=== PATIENT | female | born 1960 | race Hispanic/Latino ===

== ENCOUNTER 2021-01-25 16:54 | Observation (INO) | payer OTHER ==
[2021-01-25 17:52] LABS: Protime INR 1.16
[2021-01-25 17:58] LABS: Absolute Lymphocytes (CBC) 0.9 K/uL (0.7-4.9); Basophils % 0.3 % (0-1.3); Hematocrit 25.9 % (36.0-45.0); Lymphocytes % 32.7 % (15.3-44.8); MPV 6.9 fL (7.6-11.3); RBC Red Blood Cell Count 3.16 M/uL (3.86-4.86)
--- NOTE | 2021-01-25 18:01 | RAD REPORT ---
EXAM DESCRIPTION: RAD - Chest Single View - 01/25/2021 5:55 pm CLINICAL HISTORY: CHEST PAIN Chest pain. COMPARISON: <Comparisons> FINDINGS: Portable technique limits examination quality. [id number] interstitial pulmonary edema. The heart is mildly enlarged in size. No displaced fra ctures. IMPRESSION: Mild CHF.
[2021-01-25 18:16] LABS: ALT/SGPT 32 U/L (12-78); AST/SGOT 36 U/L (15-37); Albumin 3.1 g/dL (3.4-5.0); Alkaline Phosphatase 78 U/L (45-117); BUN Blood Urea Nitrogen 20 mg/dL (7-18); Bicarbonate 28 mmol/L (21-32); Bilirubin Direct 0.2 mg/dL (0-0.2); Bilirubin Total 0.3 mg/dL (0.2-1.0); Glucose Level 107 mg/dL (74-106); NT PRO-BNP 193 pg/mL (<125); Potassium 4.2 mmol/L (3.5-5.1); Protein, Total 7.8 g/dL (6.4-8.2); Sodium Level 138 mmol/L (136-145); Troponin (Emerg Dept Use Only) < 0.02 ng/mL (0.0-0.045)
[2021-01-25 18:22] LABS: Magnesium 1.2 mg/dL (1.8-2.4)
--- NOTE | 2021-01-25 19:04 | ER ---
Nurse's Notes [facility] Name: Sita Delgado Age: 61 yrs Sex: Female : 1960 Arrival Date: 01/25/2021 Time: 16:57 Bed 15 Private MD: Diagnosis: Chest pain, unspecified;Acute pulmonary edema Presentation: 01/25 17:13 Chief complaint: Patient states: chest pain that began this morning at 1100, pt also aa5 reports feeling SOB. Pt appears pale in triage, denies bloody stools or vomiting blood. Denies cough/congestion/nausea/vomiting/diarrhea. Coronavirus screen: shortness of breath. Ebola Screen: No symptoms or risks identified at this time. Initial Sepsis Screen: Does the patient meet any 2 criteria? No. Patient's initial sepsis screen is negative. Does the patient have a suspected source of infection? No. Patient's initial sepsis screen is negative. Risk Assessment: Do you want to hurt yourself or someone else? Patient reports no desire to harm self or others. Onset of symptoms was January 25, 2021. 17:13 Acuity: KATARINA 2 aa5 17:13 Method Of Arrival: Ambulatory aa5 Historical: - Allergies: 17:15 PENICILLINS; aa5 17:15 Nubain; aa5 17:15 Darvocet-N 100; aa5 - PMHx: 17:15 Hypertensive disorder; Diabetes mellitus; thyroid problem; aa5 - PSHx: 17:15 hysterectomy; vic knee reconstructive sx; Appendectomy; Cholecystectomy; aa5 17:18 Carpal Tunnel Repair; aa5 - Immunization history:: Client reports receiving the 2nd dose of the Covid vaccine. - Social history:: Smoking status: Patient denies any tobacco usage or history of. Screenin:53 Abuse screen: Denies threats or abuse. Nutritional screening: No deficits noted. vg1 Tuberculosis screening: No symptoms or risk factors identified. Fall Risk No fall in past 12 months (0 pts). No secondary diagnosis (0 pts). IV access (20 points). Ambulatory Aid- None/Bed Rest/Nurse Assist (0 pts). Gait- Normal/Bed Rest/Wheelchair (0 pts) Mental Status- Oriented to own ability (0 pts). Total Dietrich Fall Scale indicates No Risk (0-24 pts). Assessment: 18:40 General: Appears in no apparent distress. uncomfortable, Behavior is calm, cooperative. vg1 Pain: Complains of pain in anterior aspect of left upper chest Pain radiates to left arm Pain currently is 8 out of 10 on a pain scale. Pain began this morning. Neuro: Level of Consciousness is awake, alert, obeys commands, Oriented to person, place, time, situation, Reports headache. Cardiovascular: Patient's skin is warm and dry. Respiratory: Airway is patent Respiratory effort is even, unlabored. GI: Reports diarrhea. : No signs and/or symptoms were reported regarding the genitourinary system. EENT: No signs and/or symptoms were reported regarding the EENT system. Derm: Skin is intact, is healthy with good turgor. Musculoskeletal: Circulation, motion, and sensation intact. 19:35 Reassessment: Patient appears in no apparent distress at this time. No changes from vg1 previously documented assessment. Patient and/or family updated on plan of care and expected duration. Pain level reassessed. Patient is alert, oriented x 3, equal unlabored respirations, skin warm/dry/pink. Pt asked if could take personal Oxycodone 10 mg PO; asked [place] CHANGE ROOM ATTENDANT stated pt could take it. Pt took Oxycodone 10 mg PO for chronic back pain. 21:46 Reassessment: Patient appears in no apparent distress at this time. Patient and/or vg1 family updated on plan of care and expected duration. Pain level reassessed. Patient is alert, oriented x 3, equal unlabored respirations, skin warm/dry/pink. Pt rates pain 9/10. Receiving nurse notified. Vital Signs: 17:13 BP 133 / 60; Pulse 72; Resp 18 S; Temp 98.0(TE); Pulse Ox 95% on R/A; Weight 92.99 kg aa5 (R); Height 5 ft. 2 in. (157.48 cm) (R); 18:52 BP 131 / 72; Pulse 70; Resp 14; Pulse Ox 98% ; vg1 19:00 BP 124 / 60; Pulse 75; Resp 22; Pulse Ox 98% on R/A; vg1 21:45 BP 140 / 58; Pulse 79; Resp 14; Pulse Ox 100% ; vg1 17:13 Body Mass Index 37.49 (92.99 kg, 157.48 cm) aa ED Course: 16:57 Patient arrived in ED. as 17:13 Arm band placed on. aa5 17:15 Triage completed. aa5 17:24 EKG completed in triage. Results shown to MD. aa5 17:29 Initial lab(s) drawn, by me, sent to lab. Inserted saline lock: 20 gauge in right aa5 antecubital area, using aseptic technique. Blood collected. 17:55 XRAY Chest (1 view) In Process Unspecified. EDMS 18:15 [facility] kb 18:15 Williams Kenney MD is Attending Physician. kb 18:21 Patient has correct armband on for positive identification. Bed in low position. Call [facility] light in reach. Side rails up X 1. Warm blanket given. traffic monitor specialist on. Pulse ox on. NIBP on. 18:21 Basic Metabolic Panel Sent. 5 18:21 LFT's Sent. 5 18:21 Magnesium Sent. 5 18:21 NT PRO-BNP Sent. [facility] 18:21 Troponin (emerg Dept Use Only) Sent. [facility] 18:22 EKG done, by ED staff, reviewed by Marybel HERNANDEZ. 5 18:41 Lorena Suresh, RN is Primary Nurse. vg1 18:53 No provider procedures requiring assistance completed. Patient maintains SpO2 vg1 saturation greater than 95% on room air. 19:03 Edy Carballo is Hospitalizing Provider. kb 21:43 Patient admitted, IV remains in place. vg1 21:43 COVID-19 (Coronavirus) Document "Date of Onset" if Symptomatic Sent. wg 21:43 Extrem Venous W Compression Vic US Sent. wg 21:44 DD Sent. wg Administered Medications: 18:50 Drug: Magnesium Sulfate 2 grams Route: IVPB; Infused Over: 2 hrs; Site: right vg1 antecubital; 21:47 Follow up: IV Status: Completed infusion vg1 19:13 Drug: Lasix (furosemide) 20 mg Route: IVP; Site: right antecubital; vg1 21:46 Follow up: Response: No adverse reaction vg1 19:15 Drug: Aspirin Chewable Tablet 324 mg Route: PO; vg1 21:46 Follow up: Response: No adverse reaction vg1 Outcome: 19:03 Decision to Hospitalize by Provider. kb 21:42 Admitted to Med/surg accompanied by tech, via wheelchair, room 419, with chart, Report vg1 called to Sarah ATWOOD 21:42 Condition: stable 21:42 Instructed on the need for admit. 22:02 Patient left the ED. vg1 Signatures: Dispatcher [employer] Marybel Carty, DAVID ROWE-Erlinda Jackson Audri, RN RN aa5 Michelle Issa Victoria, RN RN vg1 Bert Wooten RN wg Corrections: (The following items were deleted from the chart) 17:18 17:15 Allergies: No Known Allergies; shannan campbell
--- NOTE | 2021-01-25 19:04 | EDPHYS ---
Physician Documentation [facility] Name: Sita Delgado Age: 61 yrs Sex: Female : 1960 Arrival Date: 01/25/2021 Time: 16:57 Bed 15 Private MD: ED Physician Williams Kenney HPI: 01/25 19:01 This 61 yrs old Female presents to ER via Ambulatory with complaints of Chest kb Pain. 19:01 The patient or guardian reports chest pain that is located primarily in the anterior kb chest wall, left. Onset: today, at 11:00. The pain does not radiate. Associated signs and symptoms: Pertinent positives: shortness of breath. The chest pain is described as a pressure. Duration: The patient or guardian reports a single episode, that is still ongoing. Modifying factors: The symptoms are alleviated by nothing. the symptoms are aggravated by nothing. Severity of pain: At its worst the pain was moderate in the emergency department the pain is unchanged. The patient has not experienced similar symptoms in the past. The patient has not recently seen a physician. Historical: - Allergies: 17:15 PENICILLINS; aa5 17:15 Nubain; aa5 17:15 Darvocet-N 100; aa5 - PMHx: 17:15 Hypertensive disorder; Diabetes mellitus; thyroid problem; aa5 - PSHx: 17:15 hysterectomy; vic knee reconstructive sx; Appendectomy; Cholecystectomy; aa5 17:18 Carpal Tunnel Repair; aa5 - Immunization history:: Client reports receiving the 2nd dose of the Covid vaccine. - Social history:: Smoking status: Patient denies any tobacco usage or history of. ROS: 19:01 Constitutional: Negative for fever, chills, and weight loss. kb 19:01 Cardiovascular: Positive for chest pain, Negative for edema, orthopnea, palpitations, paroxysmal nocturnal dyspnea. 19:01 Respiratory: Positive for orthopnea, shortness of breath, Negative for cough, hemoptysis, pleurisy, sputum production, wheezing. 19:01 All other systems are negative. Exam: 19:01 Constitutional: This is a well developed, well nourished patient who is awake, alert, kb and in no acute distress. Head/Face: Normocephalic, atraumatic. ENT: Moist Mucous membranes Cardiovascular: Regular rate and rhythm with a normal S1 and S2. No gallops, murmurs, or rubs. No pulse deficits. Respiratory: Respirations even and unlabored. No increased work of breathing, no retractions or nasal flaring. Skin: Warm, dry with normal turgor. Normal color. MS/ Extremity: Pulses equal, no cyanosis. Neurovascular intact. Full, normal range of motion. Neuro: Awake and alert, GCS 15, oriented to person, place, time, and situation. Moves all extremities. Normal gait. Psych: Awake, alert, with orientation to person, place and time. Behavior, mood, and affect are within normal limits. Vital Signs: 17:13 BP 133 / 60; Pulse 72; Resp 18 S; Temp 98.0(TE); Pulse Ox 95% on R/A; Weight 92.99 kg aa5 (R); Height 5 ft. 2 in. (157.48 cm) (R); 18:52 BP 131 / 72; Pulse 70; Resp 14; Pulse Ox 98% ; vg1 19:00 BP 124 / 60; Pulse 75; Resp 22; Pulse Ox 98% on R/A; vg1 21:45 BP 140 / 58; Pulse 79; Resp 14; Pulse Ox 100% ; vg1 17:13 Body Mass Index 37.49 (92.99 kg, 157.48 cm) aa5 MDM: 18:15 Patient medically screened. kb 18:54 Data reviewed: vital signs, nurses notes. Data interpreted: Pulse oximetry: on room air kb is 98 %. Interpretation: normal. Counseling: I had a detailed discussion with the patient and/or guardian regarding: the historical points, exam findings, and any diagnostic results supporting the discharge/admit diagnosis, lab results, radiology results, the need for further work-up and treatment in the hospital. Physician consultation: Deandre HUNT was contacted at 18:54, regarding admission, patient's condition, and will see patient in ED, shortly. 19:02 The patient was given aspirin in the Emergency Department. kb 01/25 17:24 Order name: Basic Metabolic Panel; Complete Time: 18:24 aa5 01/25 17:24 Order name: CBC with Diff; Complete Time: 20:02 aa5 01/25 17:24 Order name: LFT's; Complete Time: 18:24 aa5 01/25 17:24 Order name: Magnesium; Complete Time: 18:24 aa5 01/25 17:24 Order name: NT PRO-BNP; Complete Time: 18:24 aa5 01/25 17:24 Order name: PT-INR; Complete Time: 18:15 aa5 01/25 17:24 Order name: Troponin (emerg Dept Use Only); Complete Time: 18:24 aa5 01/25 17:24 Order name: XRAY Chest (1 view); Complete Time: 18:15 aa5 01/25 18:46 Order name: COVID-19 (Coronavirus) Document "Date of Onset" if Symptomatic kb 01/25 18:46 Order name: CORONAVIRUS EDMS 01/25 19:57 Order name: CBC Smear Scan; Complete Time: 20:02 EDMS 01/25 20:17 Order name: Extrem Venous W Compression Vic US ej 01/25 20:41 Order name: DD ej 01/25 20:42 Order name: SARS-COV-2 RT PCR; Complete Time: 21:10 EDMS 01/25 17:24 Order name: EKG; Complete Time: 17:25 aa5 01/25 17:24 Order name: Cardiac monitoring; Complete Time: 18:20 aa5 01/25 17:24 Order name: EKG - Nurse/Tech; Complete Time: 17:44 aa5 01/25 17:24 Order name: IV Saline Lock; Complete Time: 17:44 aa5 01/25 17:24 Order name: Labs collected and sent; Complete Time: 17:44 aa5 01/25 17:24 Order name: O2 Per Protocol; Complete Time: 18:20 aa5 01/25 17:24 Order name: O2 Sat Monitoring; Complete Time: 18:20 aa5 01/25 19:10 Order name: CONS Physician Consult; Complete Time: 21:43 EDMS 01/25 21:33 Order name: US; Complete Time: 21:35 EDMS Administered Medications: 18:50 Drug: Magnesium Sulfate 2 grams Route: IVPB; Infused Over: 2 hrs; Site: right vg1 antecubital; 21:47 Follow up: IV Status: Completed infusion vg1 19:13 Drug: Lasix (furosemide) 20 mg Route: IVP; Site: right antecubital; vg1 21:46 Follow up: Response: No adverse reaction vg1 19:15 Drug: Aspirin Chewable Tablet 324 mg Route: PO; vg1 21:46 Follow up: Response: No adverse reaction vg1 Disposition Summary: 01/25/21 19:03 Hospitalization Ordered Hospitalization Status: Inpatient Admission kb Provider: Edy Carballo Location: Telemetry/MedSurg (Inpatient) kb Condition: Stable kb Problem: new kb Symptoms: are unchanged kb Bed/Room Type: Standard Room Assignment: 419(01/25/21 21:19) Diagnosis - Chest pain, unspecified kb - Acute pulmonary edema kb Forms: - Medication Reconciliation Form kb - SBAR form kb Addendum: 01/28/2021 10:25 Co-signature as Attending Physician, Williams Kenney MD I agree with the assessment and c wu plan of care. Signatures: Dispatcher [employer] Marybel Carty FNP-C FNP-Amparo Ahn, RN RN Williams Raya MD MD cha Calderon, Audri RN RN aa5 Lorena Suresh RN RN vg1 Corrections: (The following items were deleted from the chart) 01/25 17:18 17:15 Allergies: No Known Allergies; aa5 aa5 21:19 19:03 kb mw
[2021-01-25] MEDS ORDERED: Magnesium Sulfate 2gm IVPB 2 G/50 ML BAG IV ONE (19:09)
[2021-01-25] MEDS ORDERED: FUROSEMIDE 20 MG/ 2ML VIAL ONE (19:33)
[2021-01-25] MEDS ORDERED: ASPIRIN 81 MG CHEWABLE TABLET ONE (19:34)
[2021-01-25 19:57] LABS: Blood Morphology Comment NOT SEEN (NOT SEEN); Platelet Estimate DECR; White Blood Cell Scan OK (OK)
--- NOTE | 2021-01-25 20:26 | P.HP ---
Certification for Inpatient Patient admitted to: Observation With expected LOS: <2 Midnights Patient will require the following post-hospital care: None Practitioner: I am a practitioner with admitting privileges, knowledge of patient current condition, hospital course, and medical plan of care. Services: Services provided to patient in accordance with Admission requirements found in Title 42 Section 412.3 of the Code of Federal Regulations Patient History Date of Service: 01/25/21 Reason for admission: chest pain History of Present Illness: Ms. Delgado is a 61 yo F with HTN, DM, NAFLD, and history of anemia and thrombocytopenia who presents with 10/10 constant left sided chest pressure radiating down the left arm. Pain worse with movement, relieved with rest. Patient reports SOB, dizziness, nausea. Denies palpitations, vomiting, vision changes. She last saw her shoe polisher a few months ago with no acute findings at that time. Her PCP ordered a bilateral venous doppler US to evaluate leg swelling, but the order was lost so she has not had it done yet. H/H 8.4 plt 98 BUN 20 GFR 56 Glu 107 Mg 1.2 BNP 193 CXR - mild CHF. - Past Medical/Surgical History Has patient received pneumonia vaccine in the past: No Diabetic: Yes -: HTN -: DM -: NAFLD -: thrombocytopenia -: anemia -: splenomegaly -: 2x knee replacement -: hysterectomy -: appendectomy -: cholecystectomy -: carpal tunnel syndrome Psychosocial/ Personal History: - Social History Smoking Status: Never smoker Alcohol use: No CD- Drugs: No Caffeine use: No Place of Residence: Home Review of Systems 10-point ROS is otherwise unremarkable General: Unremarkable Eyes: Unremarkable ENT: Unremarkable Respiratory: Shortness of Breath, SOB with Excertion Cardiovascular: Chest Pain, Edema, Light Headedness Gastrointestinal: Nausea Genitourinary: Unremarkable Musculoskeletal: Unremarkable Integumentary: Unremarkable Neurological: Unremarkable Lymphatics: Unremarkable Physical Examination - Physical Exam General: Alert, In no apparent distress HEENT: Atraumatic, PERRLA, Mucous membr. moist/pink, EOMI, Sclerae nonicteric Neck: Supple, 2+ carotid pulse no bruit, No LAD, Without JVD or thyroid abnormality Respiratory: Normal air movement, Crackles/rales Cardiovascular: Regular rate/rhythm, Normal S1 S2, Edema Gastrointestinal: Normal bowel sounds, No tenderness Musculoskeletal: No tenderness Integumentary: No rashes Neurological: Normal speech, Normal strength at 5/5 x4 extr, Normal tone, Normal affect Lymphatics: No axilla or inguinal lymphadenopathy - Studies Laboratory Data (last 24 hrs) 01/25/21 17:30: PT 13.4 H, INR 1.16 01/25/21 17:30: WBC 2.80 L, Hgb 8.4 L, Hct 25.9 L, Plt Count 98 L 01/25/21 17:30: Sodium 138, Potassium 4.2, BUN 20 H, Creatinine 1.01, Glucose 107 H, Magnesium 1.2 L*, Total Bilirubin 0.3, AST 36, ALT 32, Alkaline Phosphatase 78 Assessment and Plan - Problems (Diagnosis) (1) HTN (hypertension) Current Visit: Yes Status: Chronic Qualifiers: Hypertension type: primary hypertension Qualified Code(s): I10 - Essential (primary) hypertension (2) T2DM (type 2 diabetes mellitus) Current Visit: Yes Status: Chronic Qualifiers: Diabetes mellitus mcc insulin use: without mcc use Diabetes mellitus complication status: with kidney complications Diabetes mellitus complication detail: with chronic kidney disease Chronic kidney disease stage 3 subtype: stage 3a (GFR 45-59) (3) Chest pain Current Visit: Yes Status: Acute Qualifiers: Chest pain type: unspecified Qualified Code(s): R07.9 - Chest pain, unspecified (4) Anemia Current Visit: Yes Status: Chronic Qualifiers: Anemia type: unspecified type Qualified Code(s): D64.9 - Anemia, unspecified (5) Thrombocytopenia Current Visit: Yes Status: Chronic (6) Hypomagnesemia Current Visit: Yes Status: Acute - Plan on tele, cardiology consulted trend troponins, repeat EKG ECHO pending, daily weights, fluid restriction DDimer pending, venous doppler ultrasound pending, will obtain CTPE if DDimer elevated daily ASA, BB, statin, lasix, prn morphine and nitroglycerin A1c pending, sliding scale insulin and accuchecks anemia workup pending, continue to monitor hemoglobin/hematocrit lipid and thyroid panel pending magnesium replacement protocol DVT ppx Discharge Plan: Home Plan to discharge in: 24 Hours - Advance Directives Does patient have a Living Will: No Does patient have a Durable POA for Healthcare: No - Code Status/Comfort Care Code Status Assessed: Yes (full code ) Critical Care: No Time Spent Managing Pts Care (In Minutes): 70
--- NOTE | 2021-01-25 21:32 | RAD REPORT ---
EXAM DESCRIPTION: US - Extrem Venous W Compress Ray - 01/25/2021 9:19 pm CLINICAL HISTORY: SWELLING Bilateral leg edema and swelling. COMPARISON: <Comparisons> TECHNIQUE: Real-time sonographic interrogation of the left and right lower extremity deep venous sys tems was performed. FINDINGS: Normal compressibility, flow augmentation, phasic flow and spontaneous flow is identified in both the left and right lower extremity deep venous systems. IMPRESSION: No sonographic evidence of left or right lower extremity deep venous thrombosis.
[2021-01-25] MEDS: MORPHINE 2 MG/ML SYR IV PRN (22:00)
[2021-01-25] MEDS ORDERED: ATORVASTATIN 40 MG TAB PO SCH (22:14)
[2021-01-25] MEDS: INSULIN -REGULAR HUMAN 50 UNIT/0.5 ML ML SQ SCH (22:14)
[2021-01-25] MEDS ORDERED: NITROGLYCERIN 0.4 MG/TAB SL PRN (22:14)
[2021-01-25] MEDS ORDERED: ACETAMINOPHEN 500 MG TAB PO PRN (22:14)
[2021-01-25] MEDS ORDERED: ONDANSETRON 4 MG/2 ML VIAL IV PRN (22:14)
[2021-01-25 22:32] VITALS: BMI 37.0
[2021-01-25 23:45] LABS: Troponin I < 0.02 ng/mL (0.0-0.045)
[2021-01-26 00:05] LABS: Thyroid Stimulating Hormone < 0.005 uIU/mL (0.360-3.740)
[2021-01-26] MEDS ORDERED: MAGNESIUM SULFATE 1 gm IVPB 1 GM/100 ML BAG IV ONE (00:09)
[2021-01-26 04:20] LABS: Basophils % 0.5 % (0-1.3); Hematocrit 26.1 % (36.0-45.0); Lymphocytes % 39.7 % (15.3-44.8); MPV 7.3 fL (7.6-11.3)
[2021-01-26 04:42] LABS: Bilirubin Total 0.4 mg/dL (0.2-1.0); Magnesium 1.9 mg/dL (1.8-2.4); Phosphorus 4.4 mg/dL (2.5-4.9); Potassium 3.7 mmol/L (3.5-5.1); Protein, Total 7.7 g/dL (6.4-8.2)
[2021-01-26] MEDS: MORPHINE 2 MG/ML SYR IV PRN ×2 (04:43→11:27)
[2021-01-26] MEDS ORDERED: METOPROLOL TAR 25 MG TAB PO SCH (06:00)
[2021-01-26] MEDS: INSULIN -REGULAR HUMAN 50 UNIT/0.5 ML ML SQ SCH ×2 (07:30→11:30)
--- NOTE | 2021-01-26 08:39 | RAD REPORT ---
EXAM DESCRIPTION: CT - Chest For Pe Angio - 01/26/2021 8:12 am CLINICAL HISTORY: chest pain COMPARISON: Extrem Venous W Compress Ray dated 01/25/2021 FINDINGS: Chest Wall: No suspicious thyroid nodules or pathologic lymphadenopathy. Lungs: No acute abnormality. Pleura: No significant effusions or pneumothorax. Mediastinum/cassidy: No pathologic lymphadenopathy. Pulmonary arteries/Aorta: No filling defect identified. No aortic aneurysm. Heart: No significant pericardial effusion. Normal heart size. Upper abdomen: No acute abnormality. Cholecystectomy. Question splenomegaly. This is only partially i ethel. Cirrhosis. Bones: No acute abnormality. All CT scans are performed using dose optimization technique as appropriate and may include automated exposure control or mA/KV adjustment according to patient size. IMPRESSION: Negative for pulmonary embolism. No other acute findings within the chest.
[2021-01-26] MEDS ORDERED: ASPIRIN EC 81 MG TAB PO SCH (09:00)
[2021-01-26] MEDS ORDERED: FUROSEMIDE 20 MG TABLET PO SCH (09:00)
[2021-01-26] MEDS ORDERED: POTASSIUM CL SA 10 MEQ TAB PO ONE (09:00)
[2021-01-26 09:43] LABS: Urine Appearance CLEAR (Clear); Urine Bilirubin NEGATIVE (Negative); Urine Blood NEGATIVE (Negative); Urine Color YELLOW (Yellow); Urine Glucose NEGATIVE (Negative); Urine Protein NEGATIVE (Negative); Urine Specific Gravity 1.015 (1.005-1.030)
[2021-01-26] MEDS ORDERED: INFLUENZA VACCINE (for 6+ mo) 0.5 ML DOSE IMVAC ONE (10:00)
[2021-01-26 10:04] VITALS: O2SAT 97
[2021-01-26 10:08] LABS: Urine Microscopic Reflex NO UMIC
[2021-01-26 10:17] LABS: Transferrin 268 mg/dL (200-360)
[2021-01-26] MEDS ORDERED: ALPRAZOLAM 0.5 MG TABLET PO PRN (11:04)
--- NOTE | 2021-01-26 11:33 | P.DS ---
Admission Date: 01/25/21 Discharge Date: 01/26/21 Disposition: ROUTINE DISCHARGE Discharge Condition: FAIR Reason for Admission: chest pain - Problems (1) Chest pain Current Visit: Yes Status: Acute Qualifiers: Chest pain type: unspecified Qualified Code(s): R07.9 - Chest pain, unspecified (2) Anemia Current Visit: Yes Status: Chronic Qualifiers: Anemia type: unspecified type Qualified Code(s): D64.9 - Anemia, unspecified (3) HTN (hypertension) Current Visit: Yes Status: Chronic Qualifiers: Hypertension type: primary hypertension Qualified Code(s): I10 - Essential (primary) hypertension (4) T2DM (type 2 diabetes mellitus) Current Visit: Yes Status: Chronic Qualifiers: Diabetes mellitus extermination inspector insulin use: without group home use Diabetes chente litus complication status: with kidney complications Diabetes mellitus complication detail: with chronic kidney disease Chronic kidney disease stage 3 subtype: stage 3a (GFR 45-59) (5) Thrombocytopenia Current Visit: Yes Status: Chronic Brief History of Present Illness: 61 yo F with HTN, DM, NAFLD, and history of anemia and thrombocytopenia presented with 10/10 constant left sided chest pressure radiating down the left arm. Pain worse with movement, relieved with rest. Patient reports SOB, dizziness, nausea. Denies palpitations, vomiting, vision changes. H/H 8.4 plt 98 BUN 20 GFR 56 Glu 107 Mg 1.2 BNP 193 CTA thorax showed no acute disease. Negative for PE. Initial troponin negative. Patient placed under observation for ACS rule out. Hospital Course: Troponin trended negative. Patient was asymptomatic during the hospital stay. Noted she has a history of chronic pain on extended-release morphine and oxycodone p.r.n. Lipid profile checked was in acceptable range. Lower extremity venous Doppler was negative for DVT. ACS ruled out. Patient informed to follow with the per ID for arrangement for outpatient stress test. Dr. Burch informed. Vital Signs/Physical Exam: Temp Pulse Resp BP Pulse Ox 97.6 F 80 19 115/52 L 97 01/26/21 08:00 01/26/21 08:57 01/26/21 08:00 01/26/21 08:57 01/26/21 08:00 General: Alert, In no apparent distress, Oriented x3, Obese HEENT: PERRLA Neck: JVD not distended Respiratory: Clear to auscultation bilaterally, Normal air movement Cardiovascular: Regular rate/rhythm, Normal S1 S2 Gastrointestinal: Soft and benign, Non-distended Musculoskeletal: No swelling Integumentary: No rashes, No cyanosis Neurological: Normal strength at 5/5 x4 extr Laboratory Data at Discharge: WBC 2.40 K/uL (4.3-10.9) L D 01/26/21 03:11 Hgb 8.7 g/dL (12.0-15.0) L 01/26/21 03:11 Hct 26.1 % (36.0-45.0) L 01/26/21 03:11 Plt Count 91 K/uL (152-406) L 01/26/21 03:11 PT 13.4 SECONDS (9.5-12.5) H 01/25/21 17:30 INR 1.16 01/25/21 17:30 Sodium 140 mmol/L (136-145) 01/26/21 03:11 Potassium 3.7 mmol/L (3.5-5.1) 01/26/21 03:11 BUN 23 mg/dL (7-18) H 01/26/21 03:11 Creatinine 1.07 mg/dL (0.55-1.3) 01/26/21 03:11 Glucose 143 mg/dL (74-106) H 01/26/21 03:11 Phosphorus 4.4 mg/dL (2.5-4.9) 01/26/21 03:11 Magnesium 1.9 mg/dL (1.8-2.4) 01/26/21 03:11 Total Bilirubin 0.4 mg/dL (0.2-1.0) 01/26/21 03:11 AST 35 U/L (15-37) 01/26/21 03:11 ALT 28 U/L (12-78) 01/26/21 03:11 Alkaline Phosphatase 85 U/L (45-117) 01/26/21 03:11 Troponin I < 0.02 ng/mL (0.0-0.045) 01/26/21 03:11 Triglycerides 117 mg/dL (<150) 01/26/21 03:11 Cholesterol 79 mg/dL (<200) 01/26/21 03:11 HDL Cholesterol 34 mg/dL (40-60) L 01/26/21 03:11 Cholesterol/HDL Ratio 2.32 01/26/21 03:11 Home Medications: ALPRAZolam [Xanax*] 0.5 mg PO BID PRN 01/26/21 Aspirin [Aspirin EC 81 MG] 81 mg PO DAILY #30 tablet. 01/26/21 Atorvastatin Calcium 10 mg PO DAILY 01/26/21 Levothyroxine Sodium [Levothyroxine] 150 mcg PO DAILY #30 capsule 01/26/21 Metformin HCl 500 mg PO BID 01/26/21 Metoclopramide HCl [Reglan] 10 mg PO TID 01/26/21 Metoprolol Tartrate 25 mg PO BID 01/26/21 Mirabegron [Myrbetriq] 25 mg PO DAILY 01/26/21 Mirtazapine 15 mg PO BEDTIME 01/26/21 Morphine Sulfate [Morphine Sulfate ER] 30 mg PO DAILY 6PM 01/26/21 Omeprazole [Prilosec] 40 mg PO DAILY 01/26/21 Oxycodone HCl/Acetaminophen [Percocet 10-325 mg Tablet] 1 each PO Q6HR PRN 01/26/21 Vortioxetine Hydrobromide [Trintellix] 20 mg PO DAILY 01/26/21 New Medications: Aspirin [Aspirin EC 81 MG] 81 mg PO DAILY #30 tablet. Levothyroxine Sodium [Levothyroxine] 150 mcg PO DAILY #30 capsule Diet: AHA Activity: Ad luke Followup: Stephane Burch MD [ACTIVE - CAN ADMIT] - 2-3 Days (Please call the office at [phone]. ) Arelis Armendariz MD [Primary Care Provider] -
[2021-01-26 12:06] VITALS: BP 135/62; TEMP 98.2
[2021-01-28 14:47] LABS: Folic Acid, (Folate) > 20.0 ng/mL (3.1-17.5)
== END 2021-01-26 12:25 | disposition home or self-care (01) ==
LOC: ER 16:54 → INTOOBSV 19:39 → ERHOLD 19:39 → 4TH 21:44
PROVIDERS: ADMIT Internal Medicine; ATTEND Internal Medicine
DX: R07.9 Chest pain, unspecified (principal); I11.0 Hypertensive heart disease with heart failure; I50.9 Heart failure, unspecified; E11.9 Type 2 diabetes mellitus without complications; D64.9 Anemia, unspecified; D69.6 Thrombocytopenia, unspecified; E83.42 Hypomagnesemia; K76.0 Fatty (change of) liver, not elsewhere classified; G89.29 Other chronic pain; R16.1 Splenomegaly, not elsewhere classified; Z88.0 Allergy status to penicillin; Z88.6 Allergy status to analgesic agent; Z90.49 Acquired absence of other specified parts of digestive tract; Z90.710 Acquired absence of both cervix and uterus; Z96.659 Presence of unspecified artificial knee joint; Z20.822 Contact with and (suspected) exposure to COVID-19; Z23 Encounter for immunization
CPT/HCPCS: 96365; 93005 ×2; 85025 ×2; 80048; 36415; 83735 ×3; 84100; 85610; 80061; 82947 ×3; 85379; 80076; 84443; 81003; 83036; 84484 ×3; 84439; 82728; 82746; 82607; 83540; 80053; 83880; 84466; 71275; 71045; 90471; 93970; 94760 ×2; 96375; 99285; 96366; U0003; Q9967; J1940; Q2035; J3475 ×2; J2270 ×3; J2405; G0378 ×3

== ENCOUNTER 2021-03-24 08:54 | Emergency (ER) | payer OTHER ==
[2021-03-24] MEDS ORDERED: ONDANSETRON 4 MG/2 ML VIAL ONE (09:06)
[2021-03-24] MEDS ORDERED: NA CHLORIDE 0.9% 1,000 ML ONE (09:07)
[2021-03-24 09:19] LABS: Absolute Lymphocytes (CBC) 0.9 K/uL (0.7-4.9); Basophils % 0.6 % (0-1.3); Hematocrit 33.9 % (36.0-45.0); Lymphocytes % 27.7 % (15.3-44.8); MPV 7.7 fL (7.6-11.3); RBC Red Blood Cell Count 4.06 M/uL (3.86-4.86)
[2021-03-24 09:38] LABS: Albumin 3.2 g/dL (3.4-5.0); Bilirubin Direct 0.2 mg/dL (0-0.2); Bilirubin Total 0.5 mg/dL (0.2-1.0); Potassium 4.2 mmol/L (3.5-5.1); Protein, Total 8.7 g/dL (6.4-8.2)
[2021-03-24 10:22] LABS: SARS-COV-2 RT PCR NEGATIVE (NEGATIVE)
--- NOTE | 2021-03-24 10:30 | RAD REPORT ---
EXAM DESCRIPTION: CT - Abdomen Pelvis W Contrast - 03/24/2021 10:07 am CLINICAL HISTORY: Abdominal pain COMPARISON: none. TECHNIQUE: Computed axial tomography of the abdomen pelvis was obtained. 100 cc Isovue-300 was admin istered intravenously. Oral contrast was not requested which limits evaluation of bowel. All CT scans are performed using dose optimization technique as appropriate and may include automated exposure control or mA/KV adjustment according to patient size. FINDINGS: A cirrhotic liver with fatty infiltration. Mild distention portal vein. Spleen measures 15 centimeters. Pancreas, adrenals and kidneys unremarkable. There is no evidence of diverticulitis. Portions of the wall of the colon appear mildly thickened. Hysterectomy Small ventral and small umbilical hernias Moderate compression fracture L1 vertebral body probably old IMPRESSION: Cirrhosis with mild to moderate splenomegaly Mild colonic wall thickening probably a mild colitis
[2021-03-24] MEDS ORDERED: metroNIDAZOLE 500 MG TABLET ONE (10:39)
[2021-03-24] MEDS ORDERED: CIPROFLOXACIN 400mg IV 400 MG/200 ML BAG IV ONE (10:39)
[2021-03-24] MEDS ORDERED: MEPERIDINE HCL 25 MG/ML SYR ONE (10:48)
--- NOTE | 2021-03-24 11:10 | EDPHYS ---
Physician Documentation [facility] Name: Sita Delgado Age: 61 yrs Sex: Female : 1960 Arrival Date: 03/24/2021 Time: 08:57 Bed 5 Private MD: ED Physician Everette Stiles HPI: 03/24 09:07 This 61 yrs old Female presents to ER via Ambulatory with complaints of rn Vomiting/Diarrhea. 09:07 The patient presents to the emergency department with nausea, vomiting, diarrhea, rn abdominal pain, of the abdomen diffusely, described as achy, crampy, and does not radiate. Onset: The symptoms/episode began/occurred 1 week(s) ago. Possible causes: unknown. The symptoms are aggravated by nothing. The symptoms are alleviated by nothing. Associated signs and symptoms: Pertinent positives: abdominal pain, diarrhea, nausea, vomiting, Pertinent negatives: fever, GI bleeding. Severity of symptoms: At their worst the symptoms were moderate in the emergency department the symptoms are unchanged. The patient has not experienced similar symptoms in the past. The patient has not recently seen a physician. Patient reports 1 week of abdominal pain and diarrhea, vomiting started yesterday. No blood in stool or emesis. No fever. No known sick contacts.. Historical: - Allergies: 09:03 Darvocet-N 100; ss 09:03 Nubain; ss 09:03 PENICILLINS; ss - PMHx: 09:03 diabetes mellitus; Hypertensive disorder; Thyroid problem; ss - PSHx: 09:03 Appendectomy; vic knee reconstructive sx; carpal tunnel repair; Cholecystectomy; ss hysterectomy; - Immunization history:: Client reports receiving the 2nd dose of the Covid vaccine. - Social history:: Smoking status: Patient denies any tobacco usage or history of. - Family history:: not pertinent. - Hospitalizations: : No recent hospitalization is reported. ROS: 09:07 Constitutional: Negative for fever, chills, and weight loss, Eyes: Negative for injury, rn pain, redness, and discharge, ENT: Negative for injury, pain, and discharge, Neck: Negative for injury, pain, and swelling, Cardiovascular: Negative for chest pain, palpitations, and edema, Respiratory: Negative for shortness of breath, cough, wheezing, and pleuritic chest pain, Abdomen/GI: Negative for constipation Back: Negative for injury and pain, : Negative for injury, bleeding, discharge, and swelling, MS/Extremity: Negative for injury and deformity, Skin: Negative for injury, rash, and discoloration, Neuro: Negative for headache, numbness, tingling, and seizure. Exam: 09:07 Constitutional: This is a well developed, well nourished patient who is awake, alert, rn and in no acute distress. Head/Face: Normocephalic, atraumatic. Eyes: Periorbital areas with no swelling, redness, or edema. ENT: Dry mucous membranes Cardiovascular: Regular rate and rhythm. No pulse deficits. Respiratory: No increased work of breathing, no retractions or nasal flaring. Abdomen/GI: soft, + diffuse abd tenderness, worse RLQ and periumbilical Skin: Warm, dry MS/ Extremity: Pulses equal, no cyanosis. Neuro: Awake and alert, GCS 15 Vital Signs: 09:03 BP 162 / 83; Pulse 76; Resp 16; Temp 98.6; Pulse Ox 98% ; Weight 90.72 kg; Height 5 ft. vg1 2 in. (157.48 cm); Pain 9/10; 10:12 BP 143 / 67; Pulse 75; Resp 15; Pulse Ox 98% ; jl7 11:30 BP 144 / 65; Pulse 74; Resp 15; Pulse Ox 98% ; jl7 09:03 Body Mass Index 36.58 (90.72 kg, 157.48 cm) vg1 MDM: 08:58 Patient medically screened. rn 10:40 Differential diagnosis: Nonspecific abd pain, gastritis, diverticulitis, viral rn gastroenteritis, gastroenteritis, Colitis. Data reviewed: vital signs, nurses notes, lab test result(s), radiologic studies, CT scan, and as a result, I will discharge patient. Counseling: I had a detailed discussion with the patient and/or guardian regarding: the historical points, exam findings, and any diagnostic results supporting the discharge/admit diagnosis, lab results, radiology results, the need for outpatient follow up, to return to the emergency department if symptoms worsen or persist or if there are any questions or concerns that arise at home. 10:42 Response to treatment: the patient's symptoms have mildly improved after treatment. rn 03/24 09:05 Order name: Basic Metabolic Panel; Complete Time: 09:41 rn 03/24 09:05 Order name: CBC with Diff; Complete Time: 09:22 rn 03/24 09:05 Order name: Hepatic Function; Complete Time: 09:41 rn 03/24 09:05 Order name: Lipase; Complete Time: 09:41 rn 03/24 09:05 Order name: CT Abd/Pelvis - IV Contrast Only; Complete Time: 10:31 rn 03/24 09:42 Order name: COVID-19/FLU A+B; Complete Time: 10:26 EDMS 03/24 09:05 Order name: IV Saline Lock; Complete Time: 09:12 rn 03/24 09:05 Order name: Labs collected and sent; Complete Time: 09:12 rn Administered Medications: 09:12 Drug: NS 0.9% 1000 ml Route: IV; Rate: 1000 ml; Site: right antecubital; jl7 10:15 Follow up: Response: No adverse reaction; IV Status: Completed infusion; IV Intake: jl7 1000ml 09:12 Drug: Zofran (Ondansetron) 4 mg Route: IVP; Site: right antecubital; jl7 10:29 Follow up: Response: No adverse reaction; Marked relief of symptoms vg1 10:43 Follow up: Response: No adverse reaction; Nausea is decreased jl7 10:43 Drug: Cipro (ciprofloxacin) 400 mg Volume: 200 ml; Route: IVPB; Infused Over: 60 mins; jl7 Site: right antecubital; 11:59 Follow up: IV Status: Completed infusion; IV Intake: 200ml vg1 10:43 Drug: Flagyl (metroNIDAZOLE) 500 mg Route: PO; jl7 11:59 Follow up: Response: No adverse reaction vg1 11:18 Drug: Phenergan (promethazine) 12.5 mg Route: IVP; Site: right antecubital; vg1 11:59 Follow up: Response: No adverse reaction; Marked relief of symptoms vg1 11:20 Drug: Demerol (meperidine) 25 mg Route: IVP; Site: right antecubital; vg1 11:59 Follow up: Response: No adverse reaction; Marked relief of symptoms vg1 Disposition Summary: 03/24/21 11:09 Discharge Ordered Location: Home rn Problem: new rn Symptoms: have improved rn Condition: Stable rn Diagnosis - Infectious gastroenteritis and colitis, unspecified rn Followup: rn - With: Private Physician - When: 2 - 3 days - Reason: Recheck today's complaints, Re-evaluation by your physician Discharge Instructions: - Discharge Summary Sheet rn - Colitis rn Forms: - Medication Reconciliation Form rn - Thank You Letter rn - Antibiotic government operations consultant - Prescription Opioid Use rn Prescriptions: - ondansetron 4 mg Oral tablet,disintegrating - take 1 tablet by ORAL route every 8 hours As needed; 20 tablet; Refills: 0, rn Product Selection Permitted - Flagyl 500 mg Oral Tablet - take 1 tablet by ORAL route every 8 hours for 10 days; 30 tablet; Refills: 0, rn Product Selection Permitted - Cipro 500 mg Oral Tablet - take 1 tablet by ORAL route every 12 hours for 10 days; 20 tablet; Refills: 0, rn Product Selection Permitted Signatures: Dispatcher [employer] EDMS Everette Stiles MD MD rn Smirch, Shelby RN RN ss Kera Choi RN RN jl7 Kerwin, Lorena, RN RN vg1 Corrections: (The following items were deleted from the chart) 09:42 09:22 SARS-COV-2 RT PCR+MOL.LAB.BRZ ordered. EDMS EDMS 09:43 09:22 Influenza Screen (A \T\ B)+BA.LAB.BRZ ordered. EDMS EDMS
--- NOTE | 2021-03-24 11:10 | ER ---
Nurse's Notes [facility] Name: Sita Delgado Age: 61 yrs Sex: Female : 1960 Arrival Date: 03/24/2021 Time: 08:57 Bed 5 Private MD: Diagnosis: Infectious gastroenteritis and colitis, unspecified Presentation: 03/24 09:05 Chief complaint: Patient states: N/V/D and abd cramping that began 1 week ago. ss Coronavirus screen: Client denies travel out of the [place] in the last 14 days. Ebola Screen: Patient denies exposure to infectious person. Patient denies travel to an Ebola-affected area in the 21 days before illness onset. Initial Sepsis Screen: Does the patient meet any 2 criteria? No. Patient's initial sepsis screen is negative. Does the patient have a suspected source of infection? No. Patient's initial sepsis screen is negative. Risk Assessment: Do you want to hurt yourself or someone else? Patient reports no desire to harm self or others. Onset of symptoms was March 17, 2021. 09:05 Method Of Arrival: Ambulatory 09:05 Acuity: KATARINA 3 ss Historical: - Allergies: 09:03 Darvocet-N 100; ss 09:03 Nubain; ss 09:03 PENICILLINS; ss - PMHx: 09:03 diabetes mellitus; Hypertensive disorder; Thyroid problem; ss - PSHx: 09:03 Appendectomy; vic knee reconstructive sx; carpal tunnel repair; Cholecystectomy; ss hysterectomy; - Immunization history:: Client reports receiving the 2nd dose of the Covid vaccine. - Social history:: Smoking status: Patient denies any tobacco usage or history of. - Family history:: not pertinent. - Hospitalizations: : No recent hospitalization is reported. Screenin:09 Abuse screen: Denies threats or abuse. Nutritional screening: Has had N/V for 3 or more vg1 days. Tuberculosis screening: No symptoms or risk factors identified. Fall Risk No fall in past 12 months (0 pts). No secondary diagnosis (0 pts). IV access (20 points). Ambulatory Aid- None/Bed Rest/Nurse Assist (0 pts). Gait- Normal/Bed Rest/Wheelchair (0 pts) Mental Status- Oriented to own ability (0 pts). Total Dietrich Fall Scale indicates No Risk (0-24 pts). Assessment: 09:07 General: Appears in no apparent distress. uncomfortable, Behavior is calm, cooperative. vg1 Pain: Complains of pain in suprapubic area and right lower quadrant Pain currently is 9 out of 10 on a pain scale. Pain began x 1 week. Neuro: Level of Consciousness is awake, alert, obeys commands, Oriented to person, place, time, situation. Cardiovascular: Patient's skin is warm and dry. Respiratory: Airway is patent Respiratory effort is even, unlabored. GI: Abdomen is round non-distended, Reports diarrhea, nausea, vomiting, diarrhea x 1 week; vomiting began yesterday. : No signs and/or symptoms were reported regarding the genitourinary system. EENT: No signs and/or symptoms were reported regarding the EENT system. Derm: Skin is pink, warm \T\ dry. Musculoskeletal: Circulation, motion, and sensation intact. 10:29 Reassessment: Patient appears in no apparent distress at this time. Patient and/or vg1 family updated on plan of care and expected duration. Pain level reassessed. Patient is alert, oriented x 3, equal unlabored respirations, skin warm/dry/pink. 11:21 Reassessment: Patient appears in no apparent distress at this time. Patient and/or vg1 family updated on plan of care and expected duration. Pain level reassessed. Patient is alert, oriented x 3, equal unlabored respirations, skin warm/dry/pink. pt up for d/c, currently waiting for IV antibiotics to complete. Vital Signs: 09:03 BP 162 / 83; Pulse 76; Resp 16; Temp 98.6; Pulse Ox 98% ; Weight 90.72 kg; Height 5 ft. vg1 2 in. (157.48 cm); Pain 9/10; 10:12 BP 143 / 67; Pulse 75; Resp 15; Pulse Ox 98% ; jl7 11:30 BP 144 / 65; Pulse 74; Resp 15; Pulse Ox 98% ; jl7 09:03 Body Mass Index 36.58 (90.72 kg, 157.48 cm) vg1 ED Course: 08:57 Patient arrived in ED. mr 08:58 Everette Stiles MD is Attending Physician. rn 08:59 Lorena Suresh RN is Primary Nurse. vg1 09:03 Arm band placed on right wrist. ss 09:06 Triage completed. ss 09:09 Patient has correct armband on for positive identification. Placed in gown. Bed in low vg1 position. Call light in reach. Side rails up X 1. Adult w/ patient. 09:09 No provider procedures requiring assistance completed. vg1 09:15 Initial lab(s) drawn, by me. Inserted saline lock: 20 gauge in right antecubital area, kj1 using aseptic technique. Blood collected. 10:07 CT Abd/Pelvis - IV Contrast Only In Process Unspecified. EDMS 11:58 IV discontinued, intact, bleeding controlled, No redness/swelling at site. Pressure vg1 dressing applied. Administered Medications: 09:12 Drug: NS 0.9% 1000 ml Route: IV; Rate: 1000 ml; Site: right antecubital; jl7 10:15 Follow up: Response: No adverse reaction; IV Status: Completed infusion; IV Intake: jl7 1000ml 09:12 Drug: Zofran (Ondansetron) 4 mg Route: IVP; Site: right antecubital; jl7 10:29 Follow up: Response: No adverse reaction; Marked relief of symptoms vg1 10:43 Follow up: Response: No adverse reaction; Nausea is decreased jl7 10:43 Drug: Cipro (ciprofloxacin) 400 mg Volume: 200 ml; Route: IVPB; Infused Over: 60 mins; jl7 Site: right antecubital; 11:59 Follow up: IV Status: Completed infusion; IV Intake: 200ml vg1 10:43 Drug: Flagyl (metroNIDAZOLE) 500 mg Route: PO; jl7 11:59 Follow up: Response: No adverse reaction vg1 11:18 Drug: Phenergan (promethazine) 12.5 mg Route: IVP; Site: right antecubital; vg1 11:59 Follow up: Response: No adverse reaction; Marked relief of symptoms vg1 11:20 Drug: Demerol (meperidine) 25 mg Route: IVP; Site: right antecubital; vg1 11:59 Follow up: Response: No adverse reaction; Marked relief of symptoms vg1 Intake: 10:15 IV: 1000ml; Total: 1000ml. jl7 11:59 IV: 200ml; Total: 1200ml. vg1 Outcome: 11: Discharge ordered by . rn 11:58 Discharged to home ambulatory, with family. vg1 11:58 Condition: good 11:58 Discharge instructions given to patient, family, Instructed on discharge instructions, follow up and referral plans. medication usage, Demonstrated understanding of instructions, follow-up care, medications, Prescriptions given X 3. 11:58 Patient left the ED. vg1 Signatures: Dispatcher [employer] EDKarely AllenEverette MD MD rn Smirch, Shelby, RN RN Kera Lopez RN RN [id number] Erica Bella1 Lorena Suresh RN RN vg1 Corrections: (The following items were deleted from the chart) 09:09 09:03 Resp 16bpm; Height 5 ft. 2 in.; Pain 9/10; ss vg1 10:29 10:29 Reassessment: Patient appears in no apparent distress at this time. No changes vg1 from previously documented assessment. Patient and/or family updated on plan of care and expected duration. Pain level reassessed. Patient is alert, oriented x 3, equal unlabored respirations, skin warm/dry/pink. vg1
[2021-03-24] MEDS ORDERED: PROMETHAZINE INJ 25 MG/ML AMP ONE (11:13)
[2021-03-24 12:09] VITALS: TEMP 98.6; O2SAT 98
[2021-03-24 12:12] VITALS: BP 144/65
== END 2021-03-24 11:58 | disposition home or self-care (01) ==
LOC: ER 08:54
DX: A09 Infectious gastroenteritis and colitis, unspecified (principal); I10 Essential (primary) hypertension; Z88.0 Allergy status to penicillin; Z88.5 Allergy status to narcotic agent; Z88.8 Allergy status to other drugs, medicaments and biological substances; Z20.822 Contact with and (suspected) exposure to COVID-19
CPT/HCPCS: 96365; 96361; 85025; 80048; 36415; 80076; 83690; 0240U; 74177; 96375; 99284; Q9967; J2550; J2175; J7030; J2405; J0744

== ENCOUNTER 2021-09-14 17:33 | Emergency (ER) | payer OTHER ==
--- OUTSIDE RECORDS SUMMARY | 2021-09-14 17:36 | XMS REPORT | Continuity of Care Document ---
:1960 Author Organization [facility] t Address [address] [place] [address] Care Team Providers Name Role Phone PATRICIA BUTTERFIELD Attending Clinician Unavailable Problems This patient has no known problems. Allergies, Adverse Reactions, Alerts This patient has no known allergies or adverse reactions. Medications This patient has no known medications. Procedures This patient has no known procedures. Encounters Start End Encounter Admission Attending Care Care Encounter Source Date/Time Date/Time Type Type Clinicians Facility Department ID 2021-06-20 2021-06-20 Outpatient [facility] [id number] [facility] 12:04:00 23:59:00 JULIA Results Test Description Test Time Test Comments Results Result Comments Source TSH, THIRD GENERATION 2021-04-25 06:18:54 Test Item Value Reference Range Interpretation Comme nts TSH, THIRD GENERATION (test code = 2821) 0.190 UIU/ML 0.400-4.100 L HEMOGLOBIN [id number] 03:11:56 Test Item Value Reference Range Interpretation Comments HEMOGLOBIN A1c (test 8.4 % 4.2-5.6 H [place] DI[facility]ET[facility] code = 40415) ASSOCIATION IDELINES FOR HGB A1C: PREDIABETES/INC REASED RISK . . . . . . . 5.7 -6.4% DIAGNOSIS OF D IABETES . . . . . . . . . > =6.5% WITH CONFIRM ATION OR APPROPRIATE SYM PTOMS NOTE: ASSAY MAY BE AFFECTED BY HEMOGLOBINOP ATHIES (SICKLE JUAN PABLO L ANEMIA, S-C DISEASE, OTHERS ) OR ARTIFICIALLY LO WERED BY DECREASED RED C ELL SURVIVAL (HEMOLYTIC ANEM IAS, BLOOD LOSS, ETC.) . CONSIDER ALTERNATE TESTI NG OR LABORATORY CONS ULTATION. IRON, [id number] 03:11:06 Test Item Value Reference Range Interpretation Comments IRON, SERUM (test 59 UG/DL 37-145 UNL ESS OTHERWISE code = 2222) INDICATED, ALL TESTING PERFORMED [email or web address] [address] [place] [address] 4 LABORATORY DIRE CTOR: Radha LOAIZA. CLIA NUMBER [id number] [place] [id number] COMPREHENSIVE METABOLIC [id number] 03:11:06 Test Item Value Reference Range Interpretation Comments GLUCOSE (test code = 141 MG/DL 70-99 H 2216) BUN (test code = 31 MG/DL 8-23 H 2207) CREATININE (test 1.07 MG/DL 0.60-1.30 code = 2214) eGFR (2020 CKD-EPI) 59 ML/MIN/1.73 >60 L (test code = 97243) CALC BUN/CREAT (test 29 RATIO 6-28 H code = 2235) SODIUM (test code = 141 MEQ/L [phone]) POTASSIUM (test code 4.7 MEQ/L 3.5-5.4 = 2227) CHLORIDE (test code 99 MEQ/L 95-107 = 2214) CARBON DIOXIDE (test 26 MEQ/L 19-31 code = 2206) CALCIUM (test code = 8.8 MG/DL 8.5-10.5 2208) PROTEIN, TOTAL (test 8.0 G/DL 6.1-8.3 code = 2229) ALBUMIN (test code = 4.5 G/DL 3.5-5.2 2200) CALC GLOBULIN (test 3.5 G/DL 1.9-3.7 code = 2240) CALC A/G RATIO (test 1.3 RATIO 1.0-2.6 code = 2234) BILIRUBIN, TOTAL 0.4 MG/DL See_Comment [Automated message] (test code = 2207) The syste m which generated this result transmit esdras reference range : <=1.2. The refe rence range was not u sed to interpret th is result as normal/abnormal . ALKALINE PHOSPHATASE 67 U/L 40-140 (test code = 2204) AST (test code = 49 U/L 9-40 H 2217) ALT (test code = 41 U/L 5-40 H 2218) LIPID [id number] 03:11:06 Test Item Value Reference Range Interpretation Comments CHOLESTEROL (test 113 MG/DL <200 code = 2210) TRIGLYCERIDES (test 165 MG/DL <150 H code = 2232) HDL CHOLESTEROL (test 39 MG/DL >39 L code = 2220) CALC LDL CHOL (test 50 MG/DL <100 NOTE: C ALCULATED LDL code = 2237) IS BASED ON TENISHA-RYAN METHOD WHICHINCLUDES ADJUSTABLE TRIGLYCERIDE:VL DL CHOLESTEROL RAT IO.THIS FACTOR VARIES B Y MEASURED TRIGLY CERIDE AND NON-HDLCHOL ESTEROL CONCENTRATIONS WITH INCREASED CALCU LATED LDL SEENIN HIGH ER TRIGLYCERIDE OR LOWER NON-HDL SPECIME NS. FOR MOREINFORMATION , SEE CLIENT ANNOUNCE MENT AT [email or web address] RISK RATIO LDL/HDL 1.28 RATIO <3.22 (test code = 2237) ALBUMIN/CREATININE RATIO, URINE, [id number] 05:57:19 Test Item Value Reference Range Interpretation Comments CREATININE, URINE, 212.0 MG/DL NOT ESTAB CONC. (test code = 2071) ALBUMIN, URINE, 16.0 MG/DL Note: Test name is RANDOM (test code changed to Urine Albumin = 59842) from [employer] in in accordance with ADA and NKF Guidelines, and Albumin/Creatin ine ratio reference inter jamshid reflects those Guidelines. An alytic methodology is unchanged. No reference interval for Ra ndom Urine Albumin i s available. CALC 75 MG/G <30 H UNLESS O THERWISE ALBUMIN/CREAT, RND INDICATED , ALL TESTING (test code = PERFORMED ATCLI NICAL 16744) PATHOLOGY LABOR [email or web address] [address] [place] [address] 4 LABORATORY DIR SAROJ: LILLI SIERRA M.D. CLIA NUMBER [id number] CAP ACCREDITATION N O. [id number] HEMOGLOBIN [id number] 04:12:15 Test Item Value Reference Range Interpretation Comments HEMOGLOBIN A1c (test 9.1 % 4.2-5.6 H [place] [facility] code = 69778) ASSOCIATION IDELINES FOR HGB A1C: PREDIABETES/INC REASED RISK . . . . . . . 5.7 -6.4% DIAGNOSIS OF D IABETES . . . . . . . . . > =6.5% WITH CONFIRM ATION OR APPROPRIATE SYM PTOMS NOTE: ASSAY MAY BE AFFECTED BY HEMOGLOBINOP ATHIES (SICKLE JUAN PABLO L ANEMIA, S-C DISEASE, OTHERS ) OR ARTIFICIALLY LO WERED BY DECREASED RED C ELL SURVIVAL (HEMOLYTIC ANEM IAS, BLOOD LOSS, ETC.) . CONSIDER ALTERNATE TESTI NG OR LABORATORY CONS ULTATION.
[2021-09-14] MEDS ORDERED: MORPHINE 4 MG/ML SYR ONE (18:19)
[2021-09-14 18:35] LABS: Absolute Lymphocytes (CBC) 1.1 K/uL (0.7-4.9); Hematocrit 28.3 % (36.0-45.0); Lymphocytes % 34.9 % (15.3-44.8); RBC Red Blood Cell Count 3.33 M/uL (3.86-4.86)
[2021-09-14 18:41] LABS: Protime INR 1.12
[2021-09-14 18:49] LABS: Potassium 4.2 mmol/L (3.5-5.1)
[2021-09-14] MEDS ORDERED: ONDANSETRON 4 MG/2 ML VIAL ONE (19:04)
--- NOTE | 2021-09-14 19:04 | RAD REPORT ---
EXAM DESCRIPTION: RAD - Pelvis - 09/14/2021 6:47 pm CLINICAL HISTORY: fall COMPARISON: No comparisons TECHNIQUE: AP imaging of the pelvis was obtained. FINDINGS: No fracture of the bony pelvis. No fracture, dislocation or other acute hip joint finding. No significant sacral ala or SI joint findings. No soft tissue abnormality. IMPRESSION: Negative pelvis for acute or significant findings.
--- NOTE | 2021-09-14 19:04 | RAD REPORT ---
EXAM DESCRIPTION: RAD - Hip Left 2 View - 09/14/2021 6:47 pm CLINICAL HISTORY: PAINfollowing fall COMPARISON: No comparisons FINDINGS: AP and frogleg views of the left hip were obtained. There is no fracture or dislocation. No acute or destructive bony process seen. No soft tissue abnormality. IMPRESSION: Negative left hip examination for acute or significant findings.
--- NOTE | 2021-09-14 20:01 | RAD REPORT ---
EXAM DESCRIPTION: CT - Abdomen Pelvis W Contrast - 09/14/2021 7:41 pm CLINICAL HISTORY: low back pain, left hip pain from fall COMPARISON: <Comparisons>CT study 03/24/2021 TECHNIQUE: Biphasic, helical CT imaging of the abdomen and pelvis was performed following 100 ml non -ionic IV contrast. No oral contrast administered. All CT scans are performed using dose optimization technique as appropriate and may include automated exposure control or mA/KV adjustment according to patient size. FINDINGS: No suspicious findings in the lung bases. Cirrhotic liver changes are again identifiable. No focal lesion has developed in the liver parenchyma . Mild splenomegaly is stable. No acute pancreatic process. Cholecystectomy clips are present. No vic iary tree dilatation. Symmetric renal function is seen with no hydronephrosis or suspicious renal mass. No pyelonephritis o r acute parenchymal process. No bladder abnormalities. No adrenal abnormalities. No dilated bowel loops or bowel wall thickening. No free air, free fluid or inflammatory stranding. No hernia, mass or bulky lymphadenopathy. No fracture the pelvis or proximal femora. No acute vertebral body compression fracture the 50% wedge compression fracture change of the L1 body is chronic. No pathologic bone process. IMPRESSION: No acute fractures of the spine, pelvis or proximal femora. Cirrhotic liver changes stable from March 2021. No acute findings identifiable.
--- NOTE | 2021-09-14 20:12 | ER ---
Nurse's Notes [facility] Name: Sita Delgado Age: 61 yrs Sex: Female : 1960 Arrival Date: 09/14/2021 Time: 17:36 Bed 14 Private MD: Diagnosis: Fall on same level from slipping, tripping and stumbling without subsequent striking against object;Pain in left hip;Low back pain Presentation: 09/14 17:44 Chief complaint: Patient states: I slipped and fell and the shower. I landed on my jb4 lower back and hip. Care prior to arrival: None. Mechanism of Injury: Fall from standing position. Trauma event details: Injury occurred in the [facility]. 17:44 Acuity: KATARINA 3 jb4 17:44 Method Of Arrival: Wheelchair jb4 17:48 Coronavirus screen: At this time, the client does not indicate any symptoms associated jb4 with coronavirus-19. Ebola Screen: No symptoms or risks identified at this time. Initial Sepsis Screen: Does the patient meet any 2 criteria? No. Patient's initial sepsis screen is negative. Does the patient have a suspected source of infection? No. Patient's initial sepsis screen is negative. Risk Assessment: Do you want to hurt yourself or someone else? Patient reports no desire to harm self or others. Onset of symptoms was September 14, 2021. Transition of care: patient was not received from another setting of care. Triage Assessment: 17:45 General: Appears distressed, uncomfortable, obese, Behavior is cooperative, appropriate bp for age, anxious. Pain: Complains of pain in back. EENT: No deficits noted. Neuro: No deficits noted. Cardiovascular: No deficits noted. Respiratory: No deficits noted. GI: No signs and/or symptoms were reported involving the gastrointestinal system. : No signs and/or symptoms were reported regarding the genitourinary system. Derm: No deficits noted. Musculoskeletal: No deficits noted. Historical: - Allergies: 17:49 Darvocet-N 100; jb4 17:49 Nubain; jb4 17:49 PENICILLINS; jb4 - PMHx: 17:49 diabetes mellitus; Hypertensive disorder; Thyroid problem; jb4 - PSHx: 17:49 Appendectomy; vic knee reconstructive sx; carpal tunnel repair; Cholecystectomy; jb4 hysterectomy; - Immunization history:: Adult Immunizations up to date. - Immunization history: Last tetanus immunization: unknown. - Social history:: Smoking status: Patient denies any tobacco usage or history of. Screenin:44 Abuse screen: Denies threats or abuse. Nutritional screening: No deficits noted. jb4 Tuberculosis screening: No symptoms or risk factors identified. Fall risk At risk due to prior history of falls. Primary Survey: 17:44 NO uncontrolled hemorrhage observed. A: The client is awake and alert. The airway is jb4 patent. Breathing/Chest: Spontaneous respiratory effort, equal unlabored respirations, breath sounds clear bilaterally, regular pattern, symmetrical chest rise and fall. Circulation: No external hemorrhage present. Regular and strong central pulse, skin warm/dry/normal color. Disability Pupils are equal, round, reactive to light and accommodation. Client is alert. Exposure/Environment: All clothing and personal items were removed. Forensic evidence collection is not deemed to be indicated at this time. Items placed in patient belonging bag. 20:31 Reassessment Breathing: Spontaneous respiratory effort, equal unlabored respirations, bb breath sounds clear bilaterally, regular pattern with symmetrical chest rise and fall. Assessment: 17:45 General: SEE TRIAGE NOTE. bp 18:43 Reassessment: PT TO RADIOLOGY. bp 19:01 Reassessment: PT RETURNED FROM RADIOLOGY. bp 19:30 Reassessment: Patient is alert, oriented x 3, equal unlabored respirations, skin bb warm/dry/pink. awaiting diagnostic results, family at bedside, IV intact with no erythema or edema noted. 20:29 Reassessment: Patient is alert, oriented x 3, equal unlabored respirations, skin bb warm/dry/pink. pt verbalized understanding of and agrees to plan of care discharge instructions given pt assisted to exit via wheelchair accompanied by family. Vital Signs: 17:44 BP 138 / 73; Pulse 99; Resp 18; Temp 97.0; Pulse Ox 99% on R/A; Weight 90.72 kg (R); jb4 Height 5 ft. 3 in. (160.02 cm) (R); Pain 10/10; 19:01 BP 144 / 66; Pulse 69; Resp 16; Pulse Ox 99% ; bp 20:30 BP 120 / 66; Pulse 69; Resp 18 S; Temp 98.2(O); Pulse Ox 98% on R/A; bb 17:44 Body Mass Index 35.43 (90.72 kg, 160.02 cm) jb4 Cassidy Coma Score: 17:44 Eye Response: spontaneous(4). Verbal Response: oriented(5). Motor Response: obeys jb4 commands(6). Total: 15. Trauma Score (Adult): 17:44 Eye Response: spontaneous(1); Verbal Response: oriented(1); Motor Response: obeys jb4 commands(2); Systolic BP: > 89 mm Hg(4); Respiratory Rate: 10 to 29 per min(4); White[place] Score: 15; Trauma Score: 12 ED Course: 17:36 Patient arrived in ED. jj6 17:38 Williams Wang PA is PHCP. cp 17:38 Johan Tsai MD is Attending Physician. cp 17:39 Marty Oquendo, RN is Primary Nurse. bp 17:44 Patient has correct armband on for positive identification. Bed in low position. Call jb4 light in reach. Side rails up X 1. 17:44 Patient maintains SpO2 saturation greater than 95% on room air. Thermoregulation: warm jb4 blanket given to patient. 17:45 Triage completed. jb4 17:49 Arm band placed on right wrist. jb4 18:22 Inserted saline lock: 22 gauge in right antecubital area, using aseptic technique. bp Blood collected. 18:47 XRAY Pelvis In Process Unspecified. EDMS 18:47 XRAY Hip LEFT 2 view In Process Unspecified. EDMS 19:18 Primary Nurse role handed off by Marty Oquendo, ANGELIC eb 19:43 CT Abd/Pelvis - IV Contrast Only In Process Unspecified. EDMS 20:28 Madison Ordoñez, RN is Primary Nurse. bb 20:30 No provider procedures requiring assistance completed. IV discontinued, intact, bb bleeding controlled, No redness/swelling at site. Pressure dressing applied. Administered Medications: 18:22 Drug: morphine 4 mg Route: IVP; Infused Over: 4 mins; Site: left hand; bp 20:10 Drug: Lidoderm Patch 5 % (700 mg/patch) 1 patches Route: Topical; Site: affected area; bb Outcome: 20:11 Discharge ordered by MD. cp 20:31 Discharged to home via wheelchair, with family. bb 20:31 Condition: stable 20:31 Discharge instructions given to patient, Instructed on discharge instructions, follow up and referral plans. medication usage, Demonstrated understanding of instructions, follow-up care, medications, Prescriptions given X 2. 20:31 Patient left the ED. tato Signatures: Dispatcher [employer] EDMS Madison Ordoñez, RN RN bb Williams Wang PA PA cp Bryson, James RN RN jb4 Marty Oquendo RN RN Lorrie Saravia Jennifer jj6
--- NOTE | 2021-09-14 20:12 | EDPHYS ---
Physician Documentation [facility] Name: Sita Delgado Age: 61 yrs Sex: Female : 1960 Arrival Date: 09/14/2021 Time: 17:36 Bed 14 Private MD: ED Physician Johan Tsai HPI: 09/14 18:10 This 61 yrs old Female presents to ER via Wheelchair with complaints of Fall cp Injury. 18:10 Details of fall: The patient fell from an upright position, while walking, and struck a cp tile surface. Onset: The symptoms/episode began/occurred just prior to arrival. Associated injuries: The patient sustained injury to the low back, pain, left hip, painful injury. Severity of symptoms: in the emergency department the symptoms are unchanged, despite home interventions. Patient reports slip and fall exiting the shower today. Landed on buttocks, now having pain to low back and left hip. Denies hitting head, denies LOC. Historical: - Allergies: 17:49 Darvocet-N 100; jb4 17:49 Nubain; jb4 17:49 PENICILLINS; jb4 - PMHx: 17:49 diabetes mellitus; Hypertensive disorder; Thyroid problem; jb4 - PSHx: 17:49 Appendectomy; vic knee reconstructive sx; carpal tunnel repair; Cholecystectomy; jb4 hysterectomy; - Immunization history:: Adult Immunizations up to date. - Immunization history: Last tetanus immunization: unknown. - Social history:: Smoking status: Patient denies any tobacco usage or history of. ROS: 18:15 Constitutional: Negative for body aches, chills, fever, poor PO intake. cp 18:15 Eyes: Negative for injury, pain, redness, and discharge. cp 18:15 Neck: Negative for pain with movement, pain at rest, stiffness. 18:15 Cardiovascular: Negative for chest pain. 18:15 Respiratory: Negative for cough, shortness of breath, wheezing. 18:15 Abdomen/GI: Negative for abdominal pain, nausea, vomiting, and diarrhea. 18:15 Back: Positive for pain at rest, pain with movement, of the low back. 18:15 : Negative for urinary symptoms. 18:15 Neuro: Negative for altered mental status, headache, loss of consciousness, syncope, weakness. 18:15 All other systems are negative. Exam: 18:20 Constitutional: The patient appears in no acute distress, alert, awake, cp non-diaphoretic, non-toxic, well developed, well nourished, uncomfortable. 18:20 Head/Face: Normocephalic, atraumatic. cp 18:20 Eyes: Periorbital structures: appear normal, Conjunctiva: normal, no exudate, no injection, Sclera: no appreciated abnormality, Lids and lashes: appear normal, bilaterally. 18:20 ENT: External ear(s): are unremarkable, Nose: is normal, Mouth: Lips: moist, Oral mucosa: moist, Posterior pharynx: Airway: no evidence of obstruction, patent. 18:20 Neck: C-spine: vertebral tenderness, is not appreciated, crepitus, is not appreciated, ROM/movement: is normal, is supple, without pain, no range of motions limitations. 18:20 Chest/axilla: Inspection: normal, Palpation: is normal, no crepitus, no tenderness. 18:20 Cardiovascular: Rate: normal, Edema: is not appreciated, JVD: is not appreciated. 18:20 Respiratory: the patient does not display signs of respiratory distress, Respirations: normal, no use of accessory muscles, no retractions, labored breathing, is not present. 18:20 Abdomen/GI: Inspection: obese Palpation: abdomen is soft and non-tender, in all quadrants. 18:20 Back: pain, that is moderate, of the lumbar area and left low back. 18:20 Musculoskeletal/extremity: Extremities: grossly normal except: noted in the left hip: pain, There is no evidence of decreased ROM, deformity, ROM: limited passive range of motion due to pain, in the left hip, Perfusion: the extremity is normally perfused throughout, the left leg Sensation intact. 18:20 Neuro: Orientation: to person, place \T\ time. Mentation: is normal. Vital Signs: 17:44 BP 138 / 73; Pulse 99; Resp 18; Temp 97.0; Pulse Ox 99% on R/A; Weight 90.72 kg (R); jb4 Height 5 ft. 3 in. (160.02 cm) (R); Pain 10/10; 19:01 BP 144 / 66; Pulse 69; Resp 16; Pulse Ox 99% ; bp 20:30 BP 120 / 66; Pulse 69; Resp 18 S; Temp 98.2(O); Pulse Ox 98% on R/A; bb 17:44 Body Mass Index 35.43 (90.72 kg, 160.02 cm) jb4 Waterproof Coma Score: 17:44 Eye Response: spontaneous(4). Verbal Response: oriented(5). Motor Response: obeys jb4 commands(6). Total: 15. Trauma Score (Adult): 17:44 Eye Response: spontaneous(1); Verbal Response: oriented(1); Motor Response: obeys jb4 commands(2); Systolic BP: > 89 mm Hg(4); Respiratory Rate: 10 to 29 per min(4); Cassidy Score: 15; Trauma Score: 12 MDM: 17:49 Patient medically screened. cp 18:30 Differential diagnosis: closed head injury, contusion, fracture, multiple trauma. cp 20:10 Data reviewed: vital signs, nurses notes, lab test result(s), radiologic studies, CT cp scan, plain films. 20:10 Counseling: I had a detailed discussion with the patient and/or guardian regarding: the cp historical points, exam findings, and any diagnostic results supporting the discharge/admit diagnosis, lab results, radiology results, to return to the emergency department if symptoms worsen or persist or if there are any questions or concerns that arise at home. Response to treatment: the patient's symptoms have markedly improved after treatment, and as a result, I will discharge patient. ED course: VSS. Radiology results negative for acute trauma. Controlled medications screen performed showing patient received RX for Morphine and Oxycodone last month. Will discharge to home for continued monitoring. 09/14 18:05 Order name: Basic Metabolic Panel; Complete Time: 18:59 09/14 18:59 Interpretation: Normal except: NA 134; GLUC 152; BUN 24; GFR 57; CA 8.4. 09/14 18:05 Order name: CBC with Diff; Complete Time: 18:59 09/14 18:05 Order name: XRAY Pelvis; Complete Time: 20:04 09/14 20:05 Interpretation: Report reviewed. 09/14 18:05 Order name: XRAY Hip LEFT 2 view; Complete Time: 20:04 09/14 20:05 Interpretation: Report reviewed. 09/14 18:05 Order name: PT-INR; Complete Time: 18:59 cp 09/14 19:00 Order name: CT Abd/Pelvis - IV Contrast Only; Complete Time: 20:04 cp 09/14 18:05 Order name: Labs collected and sent; Complete Time: 18:22 cp Administered Medications: 18:22 Drug: morphine 4 mg Route: IVP; Infused Over: 4 mins; Site: left hand; bp 20:10 Drug: Lidoderm Patch 5 % (700 mg/patch) 1 patches Route: Topical; Site: affected area; bb Disposition: 09/15 08:12 Co-signature as Attending Physician, Johan Tsai MD I agree with the assessment and kdr plan of care. Disposition Summary: 09/14/21 20:11 Discharge Ordered Location: Home cp Problem: new cp Symptoms: have improved cp Condition: Stable cp Diagnosis - Fall on same level from slipping, tripping and stumbling without subsequent cp striking against object - Pain in left hip cp - Low back pain cp Followup: cp - With: Private Physician - When: 2 - 3 days - Reason: Recheck today's complaints Discharge Instructions: - Discharge Summary Sheet cp - Acute Back Pain, Adult cp - Fall Prevention in the Home, Adult cp - Hip Pain cp - Back Exercises cp Forms: - Medication Reconciliation Form cp - Thank You Letter cp - Antibiotic Education cp - Prescription Opioid Use cp Prescriptions: - Lidoderm 5 % Topical adhesive patch,medicated - apply 1 patch by TOPICAL route once daily; 15 patch; Refills: 0, Product cp Selection Permitted - Diclofenac Sodium 75 mg Oral tablet,delayed release (DR/EC) - take 1 tablet by ORAL route 2 times per day; 20 tablet; Refills: 0, Product cp Selection Permitted Signatures: Dispatcher [employer] Johan Garcia MD MD kdr Madison Ordoñez RN RN bb Williams Wang PA PA cp Calvin Vázquez, RN RN jb4 Marty Oquendo RN RN bp
[2021-09-14] MEDS ORDERED: LIDOCAINE 4% PATCH ONE (20:22)
[2021-09-14 20:43] VITALS: BP 120/66; TEMP 98.2; O2SAT 98
== END 2021-09-14 20:31 | disposition home or self-care (01) ==
LOC: ER 17:33
DX: M54.50 Low back pain, unspecified (principal); M25.552 Pain in left hip; W01.0XXA Fall on same level from slipping, tripping and stumbling without subsequent striking against object, initial encounter; E11.9 Type 2 diabetes mellitus without complications; I10 Essential (primary) hypertension; Z88.0 Allergy status to penicillin; Z88.5 Allergy status to narcotic agent; Z88.8 Allergy status to other drugs, medicaments and biological substances
CPT/HCPCS: 85025; 80048; 36415; 85610; 74177; 72170; 73502; 96374; 99284; Q9967; J2001; J2405

== ENCOUNTER 2021-09-20 17:22 | Emergency (ER) | payer OTHER ==
--- OUTSIDE RECORDS SUMMARY | 2021-09-20 17:24 | XMS REPORT | Continuity of Care Document ---
:1960 Author Organization [facility] t Address [address] [place] [address] Care Team Providers Name Role Phone SCOUT Attending Clinician Unavailable PATRICIA BUTTERFIELD Attending Clinician Unavailable Payers Payer Name Policy Type Policy Number Effective Date Expiration Date Emil jones [facility] [employer] [id number] 2021 00:00:00 Problems This patient has no known problems. Allergies, Adverse Reactions, Alerts This patient has no known allergies or adverse reactions. Medications This patient has no known medications. Procedures This patient has no known procedures. Encounters Start End Encounter Admission Attending Care Care Encounter Source Date/Time Date/Time Type Type Clinicians Facility Department ID 2021-09-19 [facility] [id number] [place] 01:03:24 JULIA [id number] [facility] 2021-06-20 2021-06-20 Outpatient [facility] [id number] [facility] 12:04:00 23:59:00 JULIA Results Test Description Test Time Test Comments Results Result Comments Source TSH, THIRD GENERATION 2021-04-25 06:18:54 Test Item Value Reference Range Interpretation Comme nts TSH, THIRD GENERATION (test code = 2821) 0.190 UIU/ML 0.400-4.100 L HEMOGLOBIN [id number] 03:11:56 Test Item Value Reference Range Interpretation Comments HEMOGLOBIN A1c (test 8.4 % 4.2-5.6 H [employer] DIABETES code = 19662) ASSOCIATION IDE[employer] FOR HGB A1C: PREDIABETES/INC REASED [...] ALTERNATE TESTI NG OR LABORATORY CONS ULTATION. LIPID [id number] 03:11:06 Test Item Value Reference Range Interpretation [...] MOREINFORMATION , SEE CLIENT ANNOUNCE MENT AT [email or web address] RATIO LDL/HDL 1.28 RATIO <3.22 (test code = 2238) IRON, [id number] 03:11:06 Test Item Value Reference Range Interpretation Comments IRON, SERUM (test 59 UG/DL 37-145 UNL ESS OTHERWISE code = 2222) INDICATED, ALL TESTING PERFORMED [facility] [address] [place] [address] 4 LABORATORY DIRE CTOR: Radha LOAIZA. CLIA NUMBER [id number] [place] [id number] COMPREHENSIVE METABOLIC [id number] 03:11:06 Test Item Value Reference Range Interpretation Comments GLUCOSE (test code = 141 MG/DL 70-99 H 2216) BUN (test code = 31 MG/DL 8-23 H 2207) CREATININE (test 1.07 MG/DL 0.60-1.30 code = 2214) eGFR (2020 CKD-EPI) 59 ML/MIN/1.73 >60 L (test code = 42885) CALC BUN/CREAT (test 29 RATIO 6-28 H code = 2235) SODIUM (test code = 141 MEQ/L 803-675 7324) POTASSIUM (test code 4.7 MEQ/L 3.5-5.4 = 2227) CHLORIDE (test code 99 MEQ/L 95-107 = 2214) CARBON DIOXIDE (test 26 MEQ/L 19-31 code = 2205) CALCIUM (test code = 8.8 MG/DL 8.5-10.5 2208) PROTEIN, TOTAL (test 8.0 G/DL 6.1-8.3 code = 2228) ALBUMIN (test code = 4.5 G/DL 3.5-5.2 2200) CALC GLOBULIN (test 3.5 G/DL 1.9-3.7 code = 2239) CALC A/G RATIO (test 1.3 RATIO 1.0-2.6 code = 2233) BILIRUBIN, TOTAL 0.4 MG/DL See_Comment [Automated message] (test code = 2206) The syste AVIA which generated this result transmit esdras reference range : <=1.2. The refe rence range was not u sed to interpret th is result as normal/abnormal . ALKALINE PHOSPHATASE 67 U/L 40-140 (test code = 2203) AST (test code = 49 U/L 9-40 H 2217) ALT (test code = 41 U/L 5-40 H 2218) ALBUMIN/CREATININE RATIO, URINE, [id number] 05:57:19 Test Item Value Reference Range Interpretation Comments CREATININE, URINE, 212.0 MG/DL NOT ESTAB CONC. (test code = 2071) ALBUMIN, URINE, 16.0 MG/DL Note: Test name is RANDOM (test code changed to Urine Albumin = 89628) from [employer] in in accordance with ADA and NKF Guidelines, and Albumin/Creatin ine ratio reference inter jamshid reflects those Guidelines. An alytic methodology is unchanged. No reference interval for Ra ndom Urine Albumin i s available. CALC 75 MG/G <30 H UNLESS O THERWISE ALBUMIN/CREAT, RND INDICATED , ALL TESTING (test code = PERFORMED ATCLI NICAL 48830) PATHOLOG[facility] [address] [place] [address], [place] [address] LABORATORY DIR SAROJ: LILLI SIERRA M.D. CLIA NUMBER [id number] CAP ACCREDITATION N O. [id number] HEMOGLOBIN [id number] 04:12:15 Test Item Value Reference Range Interpretation Comments HEMOGLOBIN A1c (test 9.1 % 4.2-5.6 H [employer] code = 40911) ASSOCIATION IDELINES FOR HGB A1C: PREDIABETES/INC REASED [...]
[2021-09-20] MEDS ORDERED: FENTANYL CITR 100 MCG/2 ML ONE (18:42)
[2021-09-20 18:43] LABS: Absolute Lymphocytes (CBC) 0.8 K/uL (0.7-4.9); Hematocrit 35.1 % (36.0-45.0); Lymphocytes % 12.2 % (15.3-44.8); MPV 7.2 fL (7.6-11.3); RBC Red Blood Cell Count 4.14 M/uL (3.86-4.86)
[2021-09-20] MEDS ORDERED: ONDANSETRON 4 MG/2 ML VIAL ONE (18:43)
[2021-09-20] MEDS ORDERED: NA CHLORIDE 0.9% 1,000 ML ONE (18:43)
[2021-09-20 18:55] LABS: Albumin 3.9 g/dL (3.4-5.0); Bilirubin Total 0.4 mg/dL (0.2-1.0); Potassium 4.8 mmol/L (3.5-5.1); Protein, Total 8.7 g/dL (6.4-8.2)
--- NOTE | 2021-09-20 19:52 | EDPHYS ---
Physician Documentation [facility] Name: Sita Delgado Age: 61 yrs Sex: Female : 1960 Arrival Date: 09/20/2021 Time: 17:22 Bed 11 Private MD: ED Physician Cyrus Cardoza HPI: 09/20 19:48 This 61 yrs old Female presents to ER via Wheelchair with complaints of kb Abdominal Pain, Back Pain, Vomiting, Diarrhea. 19:49 The patient presents to the emergency department with nausea, vomiting, diarrhea. kb Onset: The symptoms/episode began/occurred yesterday. Possible causes: ran out of oxycodone 2 days ago. The symptoms are aggravated by nothing. The symptoms are alleviated by nothing. Associated signs and symptoms: Pertinent positives: diarrhea, nausea, vomiting. Severity of symptoms: At their worst the symptoms were moderate in the emergency department the symptoms have improved. The patient has not experienced similar symptoms in the past. The patient has not recently seen a physician. Pt states she has been out of her oxycodone for 2 days. Started having n/v/d yesterday. States vomiting has stopped and she has been able to tolerate po intake, but her hemorrhoids have been bleeding because of all of the diarrhea. c/o low back pain that is chronic which is what she takes oxycodone for. . Historical: - Allergies: 17:55 Darvocet-N 100; aa5 17:55 Nubain; aa5 17:55 PENICILLINS; aa5 - PMHx: 17:55 diabetes mellitus; Hypertensive disorder; Thyroid problem; Chronic back pain; aa5 - PSHx: 17:55 Appendectomy; vic knee reconstructive sx; carpal tunnel repair; Cholecystectomy; aa5 hysterectomy; - Immunization history:: Adult Immunizations unknown. - Social history:: Smoking status: Patient denies any tobacco usage or history of. ROS: 19:25 Constitutional: Negative for fever, chills, and weight loss. kb 19:25 Abdomen/GI: Positive for nausea, vomiting, and diarrhea, rectal bleeding, Negative for abdominal pain. 19:25 Back: Positive for pain at rest, of the low back area. 19:25 All other systems are negative. Exam: 19:25 Constitutional: This is a well developed, well nourished patient who is awake, alert, kb and in no acute distress. Head/Face: Normocephalic, atraumatic. ENT: Moist Mucous membranes Respiratory: Respirations even and unlabored. No increased work of breathing. Talking in full sentences Skin: Warm, dry with normal turgor. Normal color. MS/ Extremity: Pulses equal, no cyanosis. Neurovascular intact. Full, normal range of motion. Neuro: Awake and alert, GCS 15, oriented to person, place, time, and situation. Moves all extremities. Normal gait. Psych: Awake, alert, with orientation to person, place and time. Behavior, mood, and affect are within normal limits. 19:25 Abdomen/GI: Inspection: abdomen appears normal, Bowel sounds: normal, Palpation: abdomen is soft and non-tender, Rectal exam: hemorrhoid(s), external, with associated bleeding, without inflammation, without thrombosis, without pain. Vital Signs: 17:56 BP 140 / 55; Pulse 101; Resp 18 S; Temp 97.6(TE); Pulse Ox 99% on R/A; Weight 90.72 kg aa5 (R); Height 5 ft. 2 in. (157.48 cm) (R); 17:56 Body Mass Index 36.58 (90.72 kg, 157.48 cm) aa5 MDM: 18:07 Patient medically screened. kb 19:26 Data reviewed: vital signs, nurses notes. Data interpreted: Pulse oximetry: on room air kb is 99 %. Interpretation: normal. Counseling: I had a detailed discussion with the patient and/or guardian regarding: the historical points, exam findings, and any diagnostic results supporting the discharge/admit diagnosis, lab results, the need for outpatient follow up, a family practitioner, to return to the emergency department if symptoms worsen or persist or if there are any questions or concerns that arise at home. 19:48 ED course: Pt states she is feeling a little better, but shaky from nerves. states she kb does have anxiety that she takes something mild for, but also thinks she is detoxing from oxycodone that she normally takes. Has appt with her dr on Thursday to get a refill . 09/20 18:11 Order name: CBC with Diff; Complete Time: 18:52 kb 09/20 18:11 Order name: CMP; Complete Time: 19:02 kb 09/20 18:11 Order name: IV Saline Lock; Complete Time: 18:33 kb 09/20 18:11 Order name: Labs collected and sent; Complete Time: 18:33 kb Administered Medications: 18:42 Drug: NS 0.9% 1000 ml Route: IV; Rate: 1 bolus; Site: right antecubital; jb4 20:00 Follow up: Response: No adverse reaction; IV Status: Completed infusion; IV Intake: tw5 1000ml 18:42 Drug: Zofran (Ondansetron) 4 mg Route: IVP; Site: right antecubital; jb4 20:01 Follow up: Response: No adverse reaction tw5 18:42 Drug: fentaNYL (PF) 25 mcg Route: IVP; Site: right antecubital; jb4 20:00 Follow up: Response: No adverse reaction; RASS: Alert and Calm (0) tw5 20:01 Drug: HYDROcodone-acetaminophen 10 mg-325 mg 1 tabs Route: PO; tw5 20:01 Follow up: Response: No adverse reaction; Medication administered at discharge. tw5 Disposition: 09/21 08:11 Co-signature as Attending Physician, Cyrus Cardoza MD I agree with the assessment ma2 and plan of care. Disposition Summary: 09/20/21 19:52 Discharge Ordered Location: Home kb Condition: Stable kb Diagnosis - Low back pain - chronic kb - Nausea with vomiting, unspecified kb - Diarrhea, unspecified kb - Other hemorrhoids kb Followup: kb - With: Emergency Department - When: As needed - Reason: Worsening of condition Followup: kb - With: Private Physician - When: 2 - 3 days - Reason: Recheck today's complaints, Continuance of care, Re-evaluation by your physician Discharge Instructions: - Discharge Summary Sheet kb - Nausea and Vomiting, Adult, [id number] kb - Diarrhea, Adult, [id number] kb - Hemorrhoids, [id number] kb Forms: - Medication Reconciliation Form kb - Thank You Letter kb - Antibiotic Education kb - Prescription Opioid Use kb Signatures: Dispatcher [employer] Marybel Carty, GENNAROC SOLEDAD-Hanna Conde RN RN aa5 Calvin Vázquez RN RN jb4 Cyrus Cardoza MD MD ma2 Quiana Chisholm tw5 Corrections: (The following items were deleted from the chart) 09/20 19:53 19:48 ED course: Pt states she is feeling a little better, but shaky from nerves. kb states she does have anxiety that she takes something mild for, but also thinks she is detoxing from oxycodone that she normally takes. . kb
--- NOTE | 2021-09-20 19:52 | ER ---
Nurse's Notes [facility] Name: Sita Delgado Age: 61 yrs Sex: Female : 1960 Arrival Date: 09/20/2021 Time: 17:22 Bed 11 Private MD: Diagnosis: Low back pain-chronic;Nausea with vomiting, unspecified;Diarrhea, unspecified;Other hemorrhoids Presentation: 09/20 17:56 Chief complaint: Patient states: chronic back pain that got worse today. Pt also aa5 reports vomiting, diarrhea, and upper abd pain that began today, states "I am also bleeding from my hemorrhoids". Coronavirus screen: diarrhea. Ebola Screen: No symptoms or risks identified at this time. Initial Sepsis Screen: Does the patient meet any 2 criteria? HR > 90 bpm. Does the patient have a suspected source of infection? No. Patient's initial sepsis screen is negative. Risk Assessment: Do you want to hurt yourself or someone else? Patient reports no desire to harm self or others. Onset of symptoms was September 20, 2021. 17:56 Acuity: KATARINA 3 aa5 17:56 Method Of Arrival: Wheelchair aa5 Historical: - Allergies: 17:55 Darvocet-N 100; aa5 17:55 Nubain; aa5 17:55 PENICILLINS; aa5 - PMHx: 17:55 diabetes mellitus; Hypertensive disorder; Thyroid problem; Chronic back pain; aa5 - PSHx: 17:55 Appendectomy; vic knee reconstructive sx; carpal tunnel repair; Cholecystectomy; aa5 hysterectomy; - Immunization history:: Adult Immunizations unknown. - Social history:: Smoking status: Patient denies any tobacco usage or history of. Screenin:57 Abuse screen: Denies threats or abuse. Nutritional screening: No deficits noted. jb4 Tuberculosis screening: No symptoms or risk factors identified. Fall Risk None identified. Assessment: 18:57 General: Appears in no apparent distress. uncomfortable, Behavior is calm, cooperative, jb4 appropriate for age. Pain: Complains of pain in low back area,hemroids Pain does not radiate. Pain currently is 9 out of 10 on a pain scale. Neuro: Level of Consciousness is awake, alert, obeys commands, Oriented to person, place, time, situation. Cardiovascular: Patient's skin is warm and dry. Respiratory: Airway is patent Respiratory effort is even, unlabored, Respiratory pattern is regular, symmetrical. GI: Abdomen is non-distended, obese, Reports lower abdominal pain, diarrhea, hemorrhoids. : No signs and/or symptoms were reported regarding the genitourinary system. Denies burning with urination, discharge, pain urinary frequency, urgency. Derm: Skin is intact, Skin is dry, Skin is pale, Skin temperature is warm. Musculoskeletal: Circulation, motion, and sensation intact. Range of motion: intact in all extremities. 20:03 GI: tw5 Vital Signs: 17:56 BP 140 / 55; Pulse 101; Resp 18 S; Temp 97.6(TE); Pulse Ox 99% on R/A; Weight 90.72 kg aa5 (R); Height 5 ft. 2 in. (157.48 cm) (R); 17:56 Body Mass Index 36.58 (90.72 kg, 157.48 cm) aa5 ED Course: 17:22 Patient arrived in ED. as 17:56 Arm band placed on. aa5 17:57 Triage completed. aa5 18:07 Marybel Bella FNP-C is [facility]. kb 18:07 Cyrus Cardoza MD is Attending Physician. kb 18:19 Calvin Vázquez, ANGELIC is Primary Nurse. jb4 18:29 Initial lab(s) drawn, by me, sent to lab. Inserted saline lock: 18 gauge in right jb4 antecubital area, using aseptic technique. Blood collected. 18:57 Patient has correct armband on for positive identification. Bed in low position. Call jb4 light in reach. Side rails up X 1. Client placed on continuous cardiac and pulse oximetry monitoring. NIBP monitoring applied. 20:03 No provider procedures requiring assistance completed. intact, bleeding controlled, No tw5 redness/swelling at site. Pressure dressing applied. Administered Medications: 18:42 Drug: NS 0.9% 1000 ml Route: IV; Rate: 1 bolus; Site: right antecubital; jb4 20:00 Follow up: Response: No adverse reaction; IV Status: Completed infusion; IV Intake: tw5 1000ml 18:42 Drug: Zofran (Ondansetron) 4 mg Route: IVP; Site: right antecubital; jb4 20:01 Follow up: Response: No adverse reaction tw5 18:42 Drug: fentaNYL (PF) 25 mcg Route: IVP; Site: right antecubital; jb4 20:00 Follow up: Response: No adverse reaction; RASS: Alert and Calm (0) tw5 20:01 Drug: HYDROcodone-acetaminophen 10 mg-325 mg 1 tabs Route: PO; tw5 20:01 Follow up: Response: No adverse reaction; Medication administered at discharge. tw5 Medication: 18:57 VIS not applicable for this client. jb4 Intake: 20:00 IV: 1000ml; Total: 1000ml. tw Outcome: 19:52 Discharge ordered by . shelia 20:03 Discharged to home with family. tw5 20:03 Condition: good 20:03 Discharge instructions given to patient, Instructed on discharge instructions, follow up and referral plans. Demonstrated understanding of instructions, follow-up care, medications. 20:04 Patient left the ED. tw5 Signatures: Marybel Bella, TUB OPERATOR-C TUB OPERATOR-Erlinda Jackson Audri RN RN aa5 Calvin Vázquez RN RN jb4 Quiana Chisholm tw5
[2021-09-20] MEDS ORDERED: HYDROCODONE/APAP 10/325 TAB ONE (20:02)
[2021-09-20 20:17] VITALS: BP 140/55; TEMP 97.6; O2SAT 99
== END 2021-09-20 20:04 | disposition home or self-care (01) ==
LOC: ER 17:22
DX: M54.50 Low back pain, unspecified (principal); R11.2 Nausea with vomiting, unspecified; R19.7 Diarrhea, unspecified; K64.8 Other hemorrhoids; E11.9 Type 2 diabetes mellitus without complications; I10 Essential (primary) hypertension; Z88.0 Allergy status to penicillin; Z88.5 Allergy status to narcotic agent
CPT/HCPCS: 96361; 85025; 36415; 80053; 96375; 96374; 99283; J3010; J7030; J2405

== ENCOUNTER 2021-10-17 23:03 | Emergency (ER) | payer OTHER ==
[2021-10-17] MEDS ORDERED: HYDROCODONE/APAP 7.5/325 MG TAB ONE (23:42)
--- NOTE | 2021-10-18 00:55 | EDPHYS ---
Physician Documentation [facility] Name: Sita Delgado Age: 61 yrs Sex: Female : 1960 Arrival Date: 10/17/2021 Time: 23:05 Bed 6 Private MD: ED Physician Yinka Salinas HPI: 10/17 23:40 This 61 yrs old Female presents to ER via Wheelchair with complaints of Fall cp Injury. 23:40 Details of fall: The patient fell from a height, small step ladder. Onset: The cp symptoms/episode began/occurred just prior to arrival. Associated injuries: The patient sustained injury to the chest, specifically the left lower lateral chest wall, pain with breathing, pain with movement, tenderness, left upper arm, painful injury. Severity of symptoms: in the emergency department the symptoms are unchanged, despite home interventions. Patient reports falling after losing balance while standing on small step ladder in closet of home causing her to strike closet wall. No reported LOC. Denies hitting head. Historical: - Allergies: 23:17 PENICILLINS; kd3 23:17 Darvocet-N 100; kd3 23:17 Nubain; kd3 - PMHx: 23:17 chronic back pain; diabetes mellitus; Thyroid problem; Hypertensive disorder; kd3 - PSHx: 23:17 Appendectomy; vic knee reconstructive sx; carpal tunnel repair; Cholecystectomy; kd3 hysterectomy; - Immunization history:: Adult Immunizations up to date. - Social history:: Smoking status: Patient reports the use of cigarette tobacco products, Patient denies any tobacco usage or history of. ROS: 23:45 Constitutional: Negative for body aches, chills, fever, poor PO intake. cp 23:45 Eyes: Negative for injury, pain, redness, and discharge. cp 23:45 ENT: Negative for drainage from ear(s), ear pain, sore throat, difficulty swallowing, difficulty handling secretions. 23:45 Cardiovascular: Positive for chest pain, of the left lateral chest wall. 23:45 Respiratory: Negative for cough, shortness of breath, wheezing. 23:45 Abdomen/GI: Negative for abdominal pain, nausea, vomiting, and diarrhea. 23:45 MS/extremity: Positive for pain, tenderness, of the left upper arm, Negative for decreased range of motion, deformity, paresthesias. 23:45 Neuro: Negative for altered mental status, dizziness, headache, loss of consciousness, syncope, weakness. 23:45 All other systems are negative. Exam: 23:50 Head/Face: Normocephalic, atraumatic. cp 23:50 Constitutional: The patient appears in no acute distress, alert, awake, non-diaphoretic, non-toxic, well developed, well nourished. 23:50 Eyes: Periorbital structures: appear normal, Conjunctiva: normal, no exudate, no injection, Sclera: no appreciated abnormality, Lids and lashes: appear normal, bilaterally. 23:50 ENT: External ear(s): are unremarkable, Nose: is normal, Mouth: is normal, Posterior pharynx: Airway: no evidence of obstruction, patent. 23:50 Neck: C-spine: vertebral tenderness, is not appreciated, crepitus, is not appreciated, ROM/movement: is normal, is supple, without pain, no range of motions limitations. 23:50 Chest/axilla: Inspection: normal, no ecchymosis, no paradoxical chest wall movement, no swelling, Palpation: crepitus, is not appreciated, tenderness, that is moderate, of the non-specific, left lateral lower chest wall. 23:50 Cardiovascular: Rate: normal, Edema: is not appreciated, JVD: is not appreciated. 23:50 Respiratory: the patient does not display signs of respiratory distress, Respirations: normal, no use of accessory muscles, no retractions, labored breathing, is not present, Breath sounds: are clear throughout, no decreased breath sounds, no stridor, no wheezing. 23:50 Abdomen/GI: Inspection: obese Palpation: abdomen is soft and non-tender, in all quadrants. 23:50 Back: CVA tenderness, is absent, vertebral tenderness, is not appreciated. 23:50 Musculoskeletal/extremity: Extremities: grossly normal except: noted in the left upper arm: pain, tenderness, There is no evidence of decreased ROM, deformity, ROM: full passive range of motion, in the left shoulder and left elbow, Pulses: noted to be 2+ in the left radial artery, the left arm Sensation intact. 23:50 Skin: no rash present. 23:50 Neuro: Orientation: to person, place \T\ time. Mentation: is normal, Motor: moves all fours, strength is normal, Sensation: is normal. Vital Signs: 23:11 BP 140 / 80; Pulse 88; Resp 19; Temp 98.2; Pulse Ox 99% ; Weight 88.9 kg; Height 5 ft. kd3 2 in. (157.48 cm); Pain 10/10; 23:38 BP 123 / 76; Pulse 90; Resp 18; Pulse Ox 97% on R/A; Pain 7/10; ld1 10/18 01:27 BP 141 / 80; Pulse 74; Resp 18 S; Pulse Ox 98% on R/A; as6 10/17 23:11 Body Mass Index 35.85 (88.90 kg, 157.48 cm) kd3 MDM: 10/17 23:29 Patient medically screened. cp 10/18 00:00 Differential diagnosis: closed head injury, contusion, fracture, multiple trauma, rib cp fracture, rib contusion. 00:51 ED course: Pharmacy screen shows patient received Oxycodone 10/325 #120 on 09/23/2021. 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 00:54 Data reviewed: vital signs, nurses notes, radiologic studies, plain films. cp 00:54 Test interpretation: by ED physician or midlevel provider: plain radiologic studies. 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 Response to treatment: the patient's symptoms have markedly improved after treatment, and as a result, I will discharge patient. 10/17 23:29 Order name: XRAY Humerus LEFT cp 10/17 23:29 Order name: XRAY Elbow LEFT 3 view cp 10/17 23:29 Order name: XRAY Ribs LEFT cp 10/18 00:44 Order name: Sling; Complete Time: 01:27 cp Administered Medications: 00:10 Drug: Hydrocodone-Acetaminophen (7.5 mg-325 mg) 1 tabs Route: PO; aa9 01:28 Follow up: Response: No adverse reaction; RASS: Alert and Calm (0) as6 01:27 Drug: morphine 5 mg Route: IM; Site: left ventrogluteal; as6 01:28 Follow up: Response: No adverse reaction as6 Disposition: 03:58 Co-signature as Attending Physician, Yinka Salinas MD. mh7 Disposition Summary: 10/18/21 00:54 Discharge Ordered Location: Home cp Problem: new cp Symptoms: have improved cp Condition: Stable cp Diagnosis - Pain in left upper arm - from fall cp - Chest pain, unspecified - left lateral from fall cp Followup: cp - With: Private Physician - When: 1 - 2 days - Reason: Recheck today's complaints Discharge Instructions: - Discharge Summary Sheet cp - Rib Contusion cp - Chest Wall Pain cp Forms: - Medication Reconciliation Form cp - Thank You Letter cp - Antibiotic Education cp - Prescription Opioid Use cp Prescriptions: - Ibuprofen 800 mg Oral Tablet - take 1 tablet by ORAL route every 8 hours As needed take with food; 30 tablet; cp Refills: 0, Product Selection Permitted Signatures: Dispatcher [employer] EDMS Williams Wang PA PA cp Holmes, Maurice, MD MD mh7 Dimitrios Tamayo RN RN as6 Radha Bland RN RN kd3 Page Marcos RN RN aa9 Corrections: (The following items were deleted from the chart) 00:50 00:50 This 61 yrs old Female presents to ER via Wheelchair with complaints of cp Fall Injury. cp :10/17 23:35 Constitutional: The patient appears in no acute distress, alert, awake, cp non-diaphoretic, non-toxic, well developed, well nourished, cp 10/18 22:10/17 23:35 Head/Face: Normocephalic, atraumatic. cp cp 10/18 21:10/17 23:35 Eyes: Periorbital structures: appear normal, Conjunctiva: normal, no cp exudate, no injection, Sclera: no appreciated abnormality, Lids and lashes: appear normal, bilaterally, cp 10/18 21:10/17 23:35 ENT: External ear(s): are unremarkable, Nose: is normal, Mouth: is normal, cp Posterior pharynx: Airway: no evidence of obstruction, patent, cp 10/18 22:02 10/17 23:35 Neck: C-spine: vertebral tenderness, is not appreciated, crepitus, is not cp appreciated, ROM/movement: is normal, is supple, without pain, no range of motions limitations, cp 10/18 22:10/17 23:35 Chest/axilla: Inspection: normal, no ecchymosis, no paradoxical chest wall cp movement, no swelling, Palpation: crepitus, is not appreciated, tenderness, that is moderate, of the non-specific, left lateral lower chest wall, cp 10/18 22:10/17 23:35 Cardiovascular: Rate: normal, Edema: is not appreciated, JVD: is not cp appreciated, cp 10/18 22:10/17 23:35 Respiratory: the patient does not display signs of respiratory distress, cp Respirations: normal, no use of accessory muscles, no retractions, labored breathing, is not present, Breath sounds: are clear throughout, no decreased breath sounds, no stridor, no wheezing, cp 10/18 22:10/17 23:35 Abdomen/GI: Inspection: obese Palpation: abdomen is soft and non-tender, in cp all quadrants, cp 10/18 22:10/17 23:35 Back: CVA tenderness, is absent, vertebral tenderness, is not appreciated, cp cp 10/18 22:10/17 23:35 Skin: no rash present. cp cp 10/18 22:10/17 23:35 Neuro: Orientation: to person, place \T\ time. Mentation: is normal, Motor: cp moves all fours, strength is normal, Sensation: is normal, cp 10/18 22:10/17 23:35 Musculoskeletal/extremity: Extremities: grossly normal except: noted in the cp left upper arm: pain, tenderness, There is no evidence of decreased ROM, deformity, ROM: full passive range of motion, in the left shoulder and left elbow, Pulses: noted to be 2+ in the left radial artery, the left arm Sensation intact. cp
--- NOTE | 2021-10-18 00:55 | ER ---
Nurse's Notes [facility] Name: Sita Delgado Age: 61 yrs Sex: Female : 1960 Arrival Date: 10/17/2021 Time: 23:05 Bed 6 Private MD: Diagnosis: Pain in left upper arm-from fall;Chest pain, unspecified-left lateral from fall Presentation: 10/17 23:11 Chief complaint: Patient states: I had an accident about an hour ago and I think I kd3 pulled something in my arm. it hurts in my left side and my left arm. I don't know if I hit my head. I kind of just "came too" and I was on the floor. my head does not hurt at all. I was on a small step ladder in my kitchen and i got real dizzy and i think i missed a step on the way down. Chief complaint:. Coronavirus screen: Vaccine status: Patient reports receiving the 2nd dose of the covid vaccine. Ebola Screen: No symptoms or risks identified at this time. Initial Sepsis Screen: Does the patient meet any 2 criteria? No. Patient's initial sepsis screen is negative. Does the patient have a suspected source of infection? No. Patient's initial sepsis screen is negative. Risk Assessment: Do you want to hurt yourself or someone else? Patient reports no desire to harm self or others. Onset of symptoms was October 17, 2021. 23:11 Method Of Arrival: Wheelchair kd3 23:11 Acuity: KATARINA 3 kd3 Triage Assessment: 23:17 General: Appears uncomfortable, Behavior is calm, cooperative. Pain: Complains of pain kd3 in left arm. Neuro: Level of Consciousness is awake, alert, obeys commands, Oriented to person, place, time, situation. Respiratory: Airway is patent Trachea midline Respiratory effort is even, unlabored, Respiratory pattern is regular, symmetrical. Historical: - Allergies: 23:17 PENICILLINS; kd3 23:17 Darvocet-N 100; kd3 23:17 Nubain; kd3 - PMHx: 23:17 chronic back pain; diabetes mellitus; Thyroid problem; Hypertensive disorder; kd3 - PSHx: 23:17 Appendectomy; vic knee reconstructive sx; carpal tunnel repair; Cholecystectomy; kd3 hysterectomy; - Immunization history:: Adult Immunizations up to date. - Social history:: Smoking status: Patient reports the use of cigarette tobacco products, Patient denies any tobacco usage or history of. Screenin:38 Abuse screen: Denies threats or abuse. Denies injuries from another. Nutritional ld1 screening: No deficits noted. Tuberculosis screening: No symptoms or risk factors identified. Fall Risk Fall in past 12 months (25 points). Assessment: 23:38 General: Appears in no apparent distress. comfortable, Behavior is calm, cooperative, ld1 appropriate for age. Pain: Complains of pain in left upper quadrant, left lower quadrant, left arm and left leg Pain does not radiate. Pain currently is 7 out of 10 on a pain scale. Quality of pain is described as throbbing, Pain began 1 hour ago. Neuro: Level of Consciousness is awake, alert, obeys commands, Oriented to person, place, time, situation. Cardiovascular: Capillary refill < 3 seconds Patient's skin is warm and dry. Respiratory: Airway is patent Respiratory effort is even, unlabored. GI: Abdomen is round non-distended. : No signs and/or symptoms were reported regarding the genitourinary system. EENT: No signs and/or symptoms were reported regarding the EENT system. Derm: No deficits noted. No signs and/or symptoms reported regarding the dermatologic system. Musculoskeletal: Reports pain in right lateral posterior chest, anterior aspect of left lateral abdomen, left arm and left leg. Vital Signs: 23:11 BP 140 / 80; Pulse 88; Resp 19; Temp 98.2; Pulse Ox 99% ; Weight 88.9 kg; Height 5 ft. kd3 2 in. (157.48 cm); Pain 10/10; 23:38 BP 123 / 76; Pulse 90; Resp 18; Pulse Ox 97% on R/A; Pain 7/10; ld1 10/18 01:27 BP 141 / 80; Pulse 74; Resp 18 S; Pulse Ox 98% on R/A; as6 10/17 23:11 Body Mass Index 35.85 (88.90 kg, 157.48 cm) kd3 ED Course: 10/17 23:05 Patient arrived in ED. bp1 23:17 Williams Wang PA is PHCP. cp 23:17 Yinka Salinas MD is Attending Physician. cp 23:17 Triage completed. kd3 23:17 Dimitrios Tamayo, RN is Primary Nurse. as6 23:17 Arm band placed on right wrist. kd3 23:38 Patient has correct armband on for positive identification. Placed in gown. Bed in low ld1 position. Call light in reach. Side rails up X2. Pulse ox on. NIBP on. Door closed. Noise minimized. Warm blanket given. 23:38 No provider procedures requiring assistance completed. ld1 10/18 00:14 XRAY Humerus LEFT In Process Unspecified. EDMS 00:14 XRAY Elbow LEFT 3 view In Process Unspecified. EDMS 00:14 XRAY Ribs LEFT In Process Unspecified. EDMS 01:28 Patient did not have IV access during this emergency room visit. as6 01:28 Sling applied to left arm. as6 Administered Medications: 00:10 Drug: Hydrocodone-Acetaminophen (7.5 mg-325 mg) 1 tabs Route: PO; aa9 01:28 Follow up: Response: No adverse reaction; RASS: Alert and Calm (0) as6 01:27 Drug: morphine 5 mg Route: IM; Site: left ventrogluteal; as6 01:28 Follow up: Response: No adverse reaction as6 Medication: 01:28 VIS not applicable for this client. as6 Outcome: 00:54 Discharge ordered by MD. cp 01:28 Discharged to home ambulatory, with significant other. as6 01:28 Condition: stable 01:28 Discharge instructions given to patient, Instructed on discharge instructions, follow up and referral plans. medication usage, Demonstrated understanding of instructions, follow-up care, medications, Prescriptions given X 1. 01:29 Patient left the ED. as6 Signatures: Dispatcher [employer] EDMS Williams Wang PA PA cp Paniauga, Brittany bp1 Dibbern, Lauren, RN RN ld1 Dimitrios Tamayo, RN RN as6 Radha Bland RN RN kd3 Page Marcos, ANGELIC RN aa9
[2021-10-18 01:56] VITALS: TEMP 98.2
[2021-10-18 01:59] VITALS: BP 141/80; O2SAT 98
--- NOTE | 2021-10-18 12:23 | RAD REPORT ---
EXAM DESCRIPTION: RAD - Elbow Left 3 View - 10/18/2021 12:06 am CLINICAL HISTORY: Fall TECHNIQUE: Frontal and lateral views of the left humerus. COMPARISON: No relevant prior studies available. FINDINGS: Bones/joints: Mild degenerative changes. No acute fracture. No dislocation. Soft tissues: Unremarkable. * A single impression for all exams can be found at the end of this report EXAM DESCRIPTION: XR Left Elbow Complete, 3 Views CLINICAL HISTORY: Fall TECHNIQUE: Frontal, lateral and oblique views of the left elbow. COMPARISON: No relevant prior studies available. FINDINGS: Bones/joints: Mild degenerative changes. No acute fracture. No dislocation. Soft tissues: Unremarkable. * A single impression for all exams can be found at the end of this report IMPRESSION: XR Left Humerus, 2 Views: No acute injury. XR Left Elbow Complete, 3 Views: No acute injury. Electronically signed by: Rudy Canela MD 10/18/2021 12:24 AM CDT Due to temporary technical issues with the PACS/Fluency reporting system, reports are being signed by the in house radiologists without review as a courtesy to insure prompt reporting. The interpreting radiologist is fully responsible for the content of the report.
--- NOTE | 2021-10-18 16:33 | RAD REPORT ---
EXAM DESCRIPTION: RAD - Ribs Left - 10/18/2021 12:06 am CLINICAL HISTORY: Fall, pain. COMPARISON: None. TECHNIQUE: Two views were obtained: AP and oblique left rib radiographs. FINDINGS: No definite acute rib fracture is identified. Suspected prior healed left anterolateral fi fth rib fracture. No pneumothorax identified on these images. IMPRESSION: 1. No definite acute rib fracture is identified. 2. Suspected prior healed left anterolateral fifth rib fracture. Electronically signed by: Ava Romano MD 10/18/2021 12:30 AM CDT Due to temporary technical issues with the PACS/Fluency reporting system, reports are being signed by the in house radiologists without review as a courtesy to insure prompt reporting. The interpreting radiologist is fully responsible for the content of the report.
--- NOTE | 2021-10-19 20:00 | RAD REPORT ---
EXAM DESCRIPTION: RAD - Humerus Left - 10/18/2021 12:05 am XR Left Humerus, 2 Views CLINICAL HISTORY: Fall TECHNIQUE: Frontal and lateral views of the left humerus. COMPARISON: No relevant prior studies available. FINDINGS: Bones/joints: Mild degenerative changes. No acute fracture. No dislocation. Soft tissues: Unremarkable. * A single impression for all exams can be found at the end of this report EXAM DESCRIPTION: XR Left Elbow Complete, 3 Views CLINICAL HISTORY: Fall TECHNIQUE: Frontal, lateral and oblique views of the left elbow. COMPARISON: No relevant prior studies available. FINDINGS: Bones/joints: Mild degenerative changes. No acute fracture. No dislocation. Soft tissues: Unremarkable. * A single impression for all exams can be found at the end of this report IMPRESSION: XR Left Humerus, 2 Views: No acute injury. XR Left Elbow Complete, 3 Views: No acute injury. Electronically signed by: Rudy Canela MD 10/18/2021 12:24 AM CDT Due to temporary technical issues with the PACS/Fluency reporting system, reports are being signed by the in house radiologists without review as a courtesy to insure prompt reporting. The interpreting radiologist is fully responsible for the content of the report.
== END 2021-10-18 01:29 | disposition home or self-care (01) ==
LOC: ER 23:03
DX: M79.622 Pain in left upper arm (principal); R07.89 Other chest pain; W11.XXXA Fall on and from ladder, initial encounter; Z72.0 Tobacco use; I10 Essential (primary) hypertension; Z88.0 Allergy status to penicillin; Z88.5 Allergy status to narcotic agent; Z88.8 Allergy status to other drugs, medicaments and biological substances
CPT/HCPCS: 96372; 99284

== ENCOUNTER 2021-10-18 22:02 | Emergency (ER) | payer OTHER ==
--- NOTE | 2021-10-18 22:41 | ER ---
Nurse's Notes [facility] Name: Sita Delgado Age: 61 yrs Sex: Female : 1960 Arrival Date: 10/18/2021 Time: 22:05 Bed Waiting Private MD: Diagnosis: ED Course: 10/18 22:05 Patient arrived in ED. bp1 22:40 Patient's name was called from ER lobby. No response. Unable to locate patient. Will bb disposition as left without being seen by a provider. Administered Medications: No medications were administered Outcome: 22:41 Patient left the ED. bb Signatures: Madison Ordoñez RN RN bb Martina Romero bp1
== END 2021-10-18 22:41 | disposition left against medical advice (07) ==
LOC: ER 22:02
DX: Z02.9 Encounter for administrative examinations, unspecified (principal)

== ENCOUNTER 2021-11-14 17:43 | Emergency (ER) | payer OTHER ==
--- OUTSIDE RECORDS SUMMARY | 2021-11-14 17:49 | XMS REPORT | Continuity of Care Document ---
:1960 Author Organization [facility] t Address [address] [place] [address] Care Team Providers Name Role Phone PCP, PATIENT DOES NOT HAVE A Primary Care Physician Unavaila JULIA Spaulding Attending Clinician Unavailable YOVANA ROD Attending Clinician Unavailable Yovana Rod DO Attending Clinician JULIA BUTTERFIELD Attending Clinician Unavailable YOVANA ROD Admitting Clinician Unavailable Payers Payer Name Policy Type Policy Number Effective Date Expiration Date [id number]00 [facility] [id number] 2021 MEDICARE GOLD PPO 00:00:00 CSNP Problems This patient has no known problems. Allergies, Adverse Reactions, Alerts Allergy Allergy Status Severity Reaction(s) Onset Inactive Treating Comm ents Source Name Type Date Date Clinician PENICILL DRUG Active Other-Cmnt Univ ers IN INGREDI 7-15 ity of 00:00: [place] 00 [facility] Penicill Propensi Active Other - See U nivers in ty to comments 7-15 ity of adverse 00:00: [place] reaction 00 Medical s Branch n Propensi Active ty to 6 adverse 00:00: reaction 00 to drug Bactrim Propensi Active - Oral ty to 07-05 adverse 00:00: reaction 00 to drug NO KNOWN Drug Active Univers ALLERGIE Class [facility] [place] [facility] Social History Social Habit Start Date Stop Date Quantity Comments Source Exposure to 2021-10-08 2021-10-18 Not sure [facility] SARS-CoV-2 (event) 00:00:00 23:14:00 Medica l Branch Sex Ass[birth year] At [birth year] [facility] 00:00:00 00:00:00 Medical Branch Smoking Status Start Date Stop Date Source Tobacco smoking consumption [facility] Medical unknown Branch Medications Ordered Filled Start Stop Current Ordering Indication Dosage Frequency Signature Comments Components Source Medication Medication Date Date Medication? Clinician (SIG) Name Name lisinopril 2021-0 No 1mg 5 mg tablet 10-24 00:00: 00 Myrbetriq 2-0 No 1mg 25 mg - tablet,exte 00:00: nded 00 release citalopram 2-0 No 1mg 20 mg 7- tablet 00:00: 00 atorvastati 2-0 No 1mg n 10 mg - tablet 00:00: 00 metformin 2-0 No 1mg 1,000 mg - tablet 00:00: 00 glimepiride 2-0 No 1mg 1 mg tablet 10-24 00:00: 00 metoclopram 2-0 No 1mg ankit 10 mg - tablet 00:00: 00 ferrous 2-0 No 1(65 mg sulfate 325 10-24 iron) mg (65 mg 00:00: iron) 00 tablet omeprazole 2021-0 No 1mg 40 mg 10-24 capsule,del 00:00: ayed 00 release TAKE 1 2021-0 No 1000 TABLET 10-24 TWICE 00:00: DAILY. 00 TAKE 1 2021-0 No 500 TABLET BY - MOUTH EVERY 00:00: 8 HOURS FOR 00 10 DAYS &lt 2022-0 No 250 7- 00:00: 00 &lt 2022-0 No 10 7-21 00:00: 00 &lt 2022-0 No 25 7-21 00:00: 00 &lt 2022-0 No 7-21 00:00: 00 &lt 2022-0 No 7-21 00:00: 00 TAKE 1 2021-0 No 1000 TABLET 10-24 TWICE 00:00: DAILY. 00 Dose 2-0 No 5 Unknown 10-23 00:00: 00 HYDROcodone 2022-0 2022- No 1{tbl} 1 tablet, Univers -acetaminop 10-19 Oral, ity of hen (NORCO) 06:30: 05:28 [place] 10[place] 00 :00 dose, On Medica l tablet 1 Sat Branch tablet 10/19/21 at 0130, Routine TAKE 1 2021-0 No 500 TABLET BY 7-13 MOUTH EVERY 00:00: 12 HOURS 00 FOR 10 DAYS &lt 2022-0 No 10-16 00:00: 00 TAKE 1 2-0 No TABLET BY 7-13 MOUTH DAILY 00:00: 00 &lt 2022-0 No 7- 00:00: 00 &lt 2022-0 No 20 10-16 00:00: 00 Dose 2022-0 No 50 Unknown 10-16 00:00: 00 TAKE 1 2021-0 No 500 TABLET BY 7-13 MOUTH EVERY 00:00: 8 HOURS FOR 00 10 DAYS Dose 2022-0 No 20 Unknown 10-16 00:00: 00 Dose 2022-0 No 10 Unknown 10-16 00:00: 00 &lt 2022-0 No 25 10-16 00:00: 00 DISSOLVE 1 2021-0 No 4 TABLET BY 7-13 MOUTH EVERY 00:00: 8 HOURS 00 NEEDED &lt 2022-0 No 10-16 00:00: 00 TAKE 1 2021-0 No 1000 TABLET 10-16 TWICE 00:00: DAILY. 00 &lt 2022-0 No 10 10-16 00:00: 00 &lt 2022-0 No 15 10-16 00:00: 00 &lt 2022-0 No 5 10-16 00:00: 00 TAKE 1 2-0 No 5 TABLET BY 7-13 MOUTH TWICE 00:00: A DAY 00 NEEDED FOR ANXIETY Dose 2022-0 No Unknown 10-16 00:00: 00 &lt 2022-0 No 7-13 00:00: 00 TAKE 1 2-0 No 5 TABLET BY 7-12 MOUTH TWICE 00:00: A DAY 00 NEEDED FOR ANXIETY DISSOLVE 1 2-0 No 4 TABLET BY 7-11 MOUTH EVERY 00:00: 8 HOURS 00 NEEDED TAKE 1 2-0 No [id number] TABLET 10-09 TWICE 00:00: DAILY. 00 &lt 2022-0 No 25 10-09 00:00: 00 TAKE 1 2022-0 No 500 TABLET BY 10-09 MOUTH EVERY 00:00: 8 HOURS FOR 00 10 DAYS &lt 2022-0 No 7-06 00:00: 00 &lt 2022-0 No 30 10-09 00:00: 00 TAKE 1 2022-0 No 30 TABLET BY 10-09 MOUTH AT 00:00: BEDTIME 00 &lt 2022-0 No 7- 00:00: 00 Dose 2022-0 No 50 Unknown 10-09 00:00: 00 &lt 2022-0 No 20 10-09 00:00: 00 &lt 2022-0 No 10-09 00:00: 00 TAKE 1 2022-0 No 20 TABLET BY 10-08 MOUTH ONCE 00:00: A DAY WITH 00 MEALS &lt 2022-0 No 6-30 00:00: 00 TAKE 1 2022-0 No 200 TABLET 30 DAILY. 00:00: 00 TAKE 1 2022-0 No TABLET BY 6-29 MOUTH EVERY 00:00: 8 HOURS FOR 00 10 DAYS TAKE 1 2022-0 No TABLET BY 6-29 MOUTH EVERY 00:00: 8 HOURS FOR 00 10 DAYS &lt 2022-0 No 6-29 00:00: 00 &lt 2022-0 No 6-29 00:00: 00 &lt 2022-0 No 6-29 00:00: 00 &lt 2022-0 No 6-29 00:00: 00 TAKE ONE 2022-0 No (1) TO TWO 6-27 (2) 00:00: TABLET(S) 00 BY MOUTH EVERY 6 HOURS NEEDED FOR PAIN , NO MORE THAN 8 TABLETS IN 24 HOURS. &lt 2022-0 No 6-27 00:00: 00 &lt 2022-0 No 6-27 00:00: 00 &lt 2022-0 No 6-27 00:00: 00 &lt 2022-0 No 6-27 00:00: 00 &lt 2022-0 No 6-27 00:00: 00 TAKE ONE 2022-0 No (1) TO TWO 6-27 (2) 00:00: TABLET(S) 00 BY MOUTH EVERY 6 HOURS NEEDED FOR PAIN , NO MORE THAN 8 TABLETS IN 24 HOURS. &lt 2022-0 No 6-27 00:00: 00 &lt 2022-0 No 6-27 00:00: 00 &lt 2022-0 No 6-27 00:00: 00 &lt 2022-0 No 6-27 00:00: 00 &lt 2022-0 No 6-27 00:00: 00 TAKE 1 2022-0 No TABLET BY 6-24 MOUTH AT 00:00: BEDTIME 00 DISSOLVE 1 2022-0 No TABLET BY 6-24 MOUTH EVERY 00:00: 8 HOURS 00 NEEDED TAKE 1 2022-0 No TABLET BY 6-24 MOUTH AT 00:00: BEDTIME 00 DISSOLVE 1 2022-0 No TABLET BY 6-24 MOUTH EVERY 00:00: 8 HOURS 00 NEEDED metformin 2022-0 No 1mg 1,000 mg 6-23 tablet 00:00: 00 levothyroxi 2022-0 No 1mcg ne 75 mcg 6-23 tablet 00:00: 00 levothyroxi 2022-0 No 1mcg ne 200 mcg 6-23 tablet 00:00: 00 metformin 2022-0 No 1mg 1,000 mg 6-23 tablet 00:00: 00 levothyroxi 2022-0 No 1mcg ne 75 mcg 6-23 tablet 00:00: 00 levothyroxi 2022-0 No 1mcg ne 200 mcg 6-23 tablet 00:00: 00 Myrbetriq 2022-0 No 1mg 25 mg 4-29 tablet,exte 00:00: nded 00 release hydroxyzine 2022-0 No 1mg HCl 50 mg 4-29 tablet 00:00: 00 lisinopril 2022-0 No 1mg 5 mg tablet 4-29 00:00: 00 metformin 2022-0 No 1mg 1,000 mg 4-29 tablet 00:00: 00 metoclopram 2022-0 No 1mg ankit 10 mg 4-29 tablet 00:00: 00 Myrbetriq 2022-0 No 1mg 25 mg 4-29 tablet,exte 00:00: nded 00 release hydroxyzine 2022-0 No 1mg HCl 50 mg 4-29 tablet 00:00: 00 lisinopril 2022-0 No 1mg 5 mg tablet 4-29 00:00: 00 metformin 2022-0 No 1mg 1,000 mg 4-29 tablet 00:00: 00 metoclopram 2022-0 No 1mg ankit 10 mg 4-29 tablet 00:00: 00 citalopram 2022-0 No 1mg 20 mg 4-27 tablet 00:00: 00 atorvastati 2022-0 No 1mg n 10 mg 4-27 tablet 00:00: 00 glimepiride 2022-0 No 1mg 1 mg tablet 27 00:00: 00 levothyroxi 2022-0 No 1mcg ne 75 mcg 4-27 tablet 00:00: 00 levothyroxi 2022-0 No 1mcg ne 200 mcg 4-27 tablet 00:00: 00 levothyroxi 2022-0 No 1mcg ne 300 mcg 4-27 tablet 00:00: 00 ferrous 2022-0 No 1(65 mg sulfate 325 4-27 iron) mg (65 mg 00:00: iron) 00 tablet omeprazole 2-0 No 1mg 40 mg 4-27 capsule,del 00:00: ayed 00 release citalopram 2-0 No 1mg 20 mg 4-27 tablet 00:00: 00 atorvastati 2-0 No 1mg n 10 mg 4-27 tablet 00:00: 00 glimepiride 2-0 No 1mg 1 mg tablet 07-31 00:00: 00 levothyroxi 2022-0 No 1mcg ne 75 mcg 4-27 tablet 00:00: 00 levothyroxi 2022-0 No 1mcg ne 200 mcg 4-27 tablet 00:00: 00 levothyroxi 2-0 No 1mcg ne 300 mcg 4-27 tablet 00:00: 00 ferrous 2022-0 No 1(65 mg sulfate 325 4-27 iron) mg (65 mg 00:00: iron) 00 tablet omeprazole 2-0 No 1mg 40 mg 4-27 capsule,del 00:00: ayed 00 release Dose 2-0 No Unknown 4- 00:00: 00 Dose 2022-0 No Unknown 4- 00:00: 00 Dose 2022-0 No Unknown 4- 00:00: 00 Dose 2022-0 No Unknown 4- 00:00: 00 Dose 2022-0 No Unknown 4- 00:00: 00 Dose 2022-0 No Unknown 4-01 00:00: 00 Dose 2022-0 No Unknown 4-01 00:00: 00 Dose 2022-0 No Unknown 4-01 00:00: 00 Dose 2022-0 No Unknown 4-01 00:00: 00 Dose 2022-0 No Unknown 4-01 00:00: 00 metformin 2022-0 No 1mg 1,000 mg 4-01 tablet 00:00: 00 levothyroxi 2022-0 No 1mcg ne 75 mcg 4-01 tablet 00:00: 00 levothyroxi 2022-0 No 1mcg ne 200 mcg 4-01 tablet 00:00: 00 hydrocortis 2-0 No 1mg one acetate 4-01 25 mg 00:00: rectal 00 suppository nitrofurant 2-0 No 1mg oin 4-01 monohydrate 00:00: /macrocryst 00 als 100 mg capsule Dose 2-0 No Unknown 4-01 00:00: 00 Dose 2022-0 No Unknown 4-01 00:00: 00 Dose 2022-0 No Unknown 4-01 00:00: 00 Dose 2022-0 No Unknown 4-01 00:00: 00 Dose 2022-0 No Unknown 4-01 00:00: 00 Dose 2022-0 No Unknown 4-01 00:00: 00 Dose 2022-0 No Unknown 4-01 00:00: 00 Dose 2022-0 No Unknown 4-01 00:00: 00 Dose 2022-0 No Unknown 4-01 00:00: 00 Dose 2022-0 No Unknown 4-01 00:00: 00 Dose 2022-0 No Unknown 4-01 00:00: 00 Dose 2022-0 No Unknown 4-01 00:00: 00 Dose 2022-0 No Unknown 4-01 00:00: 00 Dose 2022-0 No Unknown 4-01 00:00: 00 Dose 2022-0 No Unknown 4-01 00:00: 00 Dose 2022-0 No Unknown 4-01 00:00: 00 Dose 2022-0 No Unknown 4-01 00:00: 00 Dose 2022-0 No Unknown 4-01 00:00: 00 Dose 2022-0 No Unknown 4-01 00:00: 00 Dose 2022-0 No Unknown 4-01 00:00: 00 Dose 2022-0 No Unknown 4-01 00:00: 00 Dose 2022-0 No Unknown 4-01 00:00: 00 Dose 2022-0 No Unknown 4-01 00:00: 00 Dose 2022-0 No Unknown 4-01 00:00: 00 Dose 2022-0 No Unknown 4-01 00:00: 00 Dose 2022-0 No Unknown 4-01 00:00: 00 Dose 2022-0 No Unknown 4-01 00:00: 00 Dose 2022-0 No Unknown 4-01 00:00: 00 Dose 2022-0 No Unknown 4-01 00:00: 00 metformin 2022-0 No 1mg 1,000 mg 4-01 tablet 00:00: 00 levothyroxi 2-0 No 1mcg ne 75 mcg 4- tablet 00:00: 00 levothyroxi 2022-0 No 1mcg ne 200 mcg 4-01 tablet 00:00: 00 hydrocortis 2-0 No 1mg one acetate 4-01 25 mg 00:00: rectal 00 suppository nitrofurant 2-0 No 1mg oin 4-01 monohydrate 00:00: /macrocryst 00 als 100 mg capsule Dose 2-0 No Unknown 4-01 00:00: 00 Dose 2022-0 No Unknown 4-01 00:00: 00 Dose 2022-0 No Unknown 4-01 00:00: 00 Dose 2022-0 No Unknown 4-01 00:00: 00 Dose 2022-0 No Unknown 4-01 00:00: 00 Dose 2022-0 No Unknown 4-01 00:00: 00 Dose 2022-0 No Unknown 4-01 00:00: 00 Dose 2022-0 No Unknown 4-01 00:00: 00 Dose 2022-0 No Unknown 4-01 00:00: 00 Dose 2022-0 No Unknown 4-01 00:00: 00 Dose 2022-0 No Unknown 4-01 00:00: 00 Dose 2022-0 No Unknown 4-01 00:00: 00 Dose 2022-0 No Unknown 4-01 00:00: 00 Dose 2022-0 No Unknown 4-01 00:00: 00 Dose 2022-0 No Unknown 4-01 00:00: 00 Dose 2022-0 No Unknown 4-01 00:00: 00 Dose 2022-0 No Unknown 4-01 00:00: 00 Dose 2022-0 No Unknown 4- 00:00: 00 Dose 2022-0 No Unknown 4- 00:00: 00 Dose 2022-0 No Unknown 3-31 00:00: 00 Dose 2022-0 No Unknown 3-31 00:00: 00 Dose 2022-0 No Unknown 3-31 00:00: 00 Dose 2022-0 No Unknown 3-31 00:00: 00 Dose 2022-0 No Unknown 3-31 00:00: 00 Dose 2022-0 No Unknown 3-31 00:00: 00 Dose 2022-0 No Unknown 3-31 00:00: 00 Dose 2022-0 No Unknown 3-31 00:00: 00 Dose 2022-0 No Unknown 3-31 00:00: 00 Dose 2022-0 No Unknown 3-31 00:00: 00 Dose 2022-0 No Unknown 3-31 00:00: 00 Dose 2022-0 No Unknown 3-31 00:00: 00 Dose 2022-0 No Unknown 3-31 00:00: 00 Dose 2022-0 No Unknown 3-31 00:00: 00 Dose 2022-0 No Unknown 3-31 00:00: 00 Dose 2022-0 No Unknown 3-31 00:00: 00 Dose 2022-0 No Unknown 3-31 00:00: 00 Dose 2022-0 No Unknown 3-31 00:00: 00 Dose 2022-0 No Unknown 1-25 00:00: 00 Dose 2022-0 No Unknown 1-25 00:00: 00 Dose 2022-0 No Unknown 1-25 00:00: 00 Dose 2022-0 No Unknown 1-25 00:00: 00 Dose 2022-0 No Unknown 1-25 00:00: 00 Dose 2022-0 No Unknown 1-25 00:00: 00 Dose 2022-0 No Unknown 1-20 00:00: 00 Dose 2022-0 No Unknown 1-20 00:00: 00 neomycin-po 2022-0 No 4mg/mL- lymyxin-hyd 1-19 unit/mL rocort 3.5 00:00: -% mg-10,000 00 unit/mL-1 % ear drops,susp Humulin 2-0 No 1unit/m 70/30 U-100 1-19 L Insulin 100 00:00: (70-30) unit/mL 00 subcutaneou s suspension lisinopril 2-0 No 1mg 5 mg tablet 1-19 00:00: 00 hydroxyzine 2022-0 No 1mg HCl 50 mg 1-19 tablet 00:00: 00 Myrbetriq 2022-0 No 1mg 25 mg 1-19 tablet,exte 00:00: nded 00 release Dose 2-0 No Unknown 1-19 00:00: 00 metformin 2022-0 No 1mg 1,000 mg 1-19 tablet 00:00: 00 metformin 2022-0 No 1mg 500 mg 1-19 tablet 00:00: 00 metoprolol 2-0 No 1mg tartrate 25 1-19 mg tablet 00:00: 00 metoclopram 2-0 No 1mg ankit 10 mg -19 tablet 00:00: 00 azithromyci 2-0 No mg n 250 mg -19 tablet 00:00: 00 Dose 2022-0 No Unknown 1-19 00:00: 00 Dose 2022-0 No Unknown 1-19 00:00: 00 Dose 2022-0 No Unknown 1-19 00:00: 00 levothyroxi 2-0 No 1mcg ne 150 mcg -19 capsule 00:00: 00 neomycin-po 2-0 No 4mg/mL- lymyxin-hyd -19 unit/mL rocort 3.5 00:00: -% mg-10,000 00 unit/mL-1 % ear drops,susp Humulin 2-0 No 1unit/m 70/30 U-100 1-19 L Insulin 100 00:00: (70-30) unit/mL 00 subcutaneou s suspension lisinopril 2-0 No 1mg 5 mg tablet -19 00:00: 00 hydroxyzine 2022-0 No 1mg HCl 50 mg 1-19 tablet 00:00: 00 Myrbetriq 2022-0 No 1mg 25 mg 1-19 tablet,exte 00:00: nded 00 release Dose 2022-0 No Unknown 1-19 00:00: 00 metformin 2022-0 No 1mg 1,000 mg 1-19 tablet 00:00: 00 metformin 2022-0 No 1mg 500 mg 1-19 tablet 00:00: 00 metoprolol 2-0 No 1mg tartrate 25 1-19 mg tablet 00:00: 00 metoclopram 2-0 No 1mg ankit 10 mg 1-19 tablet 00:00: 00 azithromyci 2-0 No mg n 250 mg 1-19 tablet 00:00: 00 Dose 2022-0 No Unknown 1-19 00:00: 00 Dose 2022-0 No Unknown 1-19 00:00: 00 Dose 2022-0 No Unknown 1-19 00:00: 00 levothyroxi 2-0 No 1mcg ne 150 mcg 1-19 capsule 00:00: 00 lisinopril 2-0 No 1mg 5 mg tablet 04-11 00:00: 00 lisinopril 2-0 No 1mg 5 mg tablet 04-11 00:00: 00 Humulin 2-0 No 1unit/m 70/30 U-100 1-03 L Insulin 100 00:00: (70-30) unit/mL 00 subcutaneou s suspension hydroxyzine 2-0 No 1mg HCl 50 mg 1-03 tablet 00:00: 00 hydroxyzine 2-0 No 1mg HCl 50 mg 1-03 tablet 00:00: 00 metformin 2-0 No 1mg 1,000 mg 1-03 tablet 00:00: 00 Humulin 2022-0 No 1unit/m 70/30 U-100 1-03 L Insulin 100 00:00: (70-30) unit/mL 00 subcutaneou s suspension hydroxyzine 2-0 No 1mg HCl 50 mg 1-03 tablet 00:00: 00 hydroxyzine 2-0 No 1mg HCl 50 mg 1-03 tablet 00:00: 00 metformin 2022-0 No 1mg 1,000 mg 1-03 tablet 00:00: 00 Zofran 4 mg 2020-1 No 1mg tablet 2-16 00:00: 00 levothyroxi 2020-1 No 1mcg ne 150 mcg 2-16 capsule 00:00: 00 Zofran 4 mg 2020-1 No 1mg tablet 2-16 00:00: 00 levothyroxi 2020-1 No 1mcg ne 150 mcg 2-16 capsule 00:00: 00 metformin 2020-04 No 1mg 500 mg 1-27 tablet 00:00: 00 metformin 2020- No 1mg 500 mg 1-27 tablet 00:00: 00 metoprolol 2020- No 1mg tartrate 25 1-22 mg tablet 00:00: 00 metoprolol 2020-04 No 1mg tartrate 25 1-22 mg tablet 00:00: 00 Myrbetriq 2020-04 No 1mg 25 mg 1-16 tablet,exte 00:00: nded 00 release metoclopram 2020-04 No 1mg ankit 10 mg 1-16 tablet 00:00: 00 Myrbetriq 2020-04 No 1mg 25 mg 1-16 tablet,exte 00:00: nded 00 release metoclopram 2020-04 No 1mg ankit 10 mg 1-16 tablet 00:00: 00 atorvastati 2020-04 No 1mg n 10 mg 1-14 tablet 00:00: 00 omeprazole 2020-04 No 1mg 40 mg 1-14 capsule,del 00:00: ayed 00 release atorvastati 2020-04 No 1mg n 10 mg 1-14 tablet 00:00: 00 omeprazole 2020-04 No 1mg 40 mg 1-14 capsule,del 00:00: ayed 00 release levothyroxi 2020-04 No 1mcg ne 150 mcg 1-04 capsule 00:00: 00 levothyroxi 2020-04 No 1mcg ne 150 mcg 1-04 capsule 00:00: 00 ferrous 2020- No 1(65 mg sulfate 325 0-21 iron) mg (65 mg 00:00: iron) 00 tablet ferrous 2020-04 No 1(65 mg sulfate 325 0-21 iron) mg (65 mg 00:00: iron) 00 tablet Myrbetriq 2020-04 No 1mg 25 mg 0-13 tablet,exte 00:00: nded 00 release levothyroxi 2020-04 No 1mcg ne 300 mcg 0-13 tablet 00:00: 00 Myrbetriq 2020-04 No 1mg 25 mg 0-13 tablet,exte 00:00: nded 00 release levothyroxi 2020-04 No 1mcg ne 300 mcg 0-13 tablet 00:00: 00 nitrofurant 2021-1 No 1mg oin 0-12 macrocrysta 00:00: l 100 mg 00 capsule nitrofurant 2021-1 No 1mg oin 0-12 macrocrysta 00:00: l 100 mg 00 capsule metoclopram 2021-0 No 1mg ankit 10 mg 9-13 tablet 00:00: 00 metoclopram 2021-0 No 1mg ankit 10 mg 9-13 tablet 00:00: 00 Myrbetriq 2021-0 No 1mg 25 mg 9-01 tablet,exte 00:00: nded 00 release Myrbetriq 2021-0 No 1mg 25 mg 9-01 tablet,exte 00:00: nded 00 release metoclopram 2021-0 No 1mg ankit 10 mg 8-13 tablet 00:00: 00 metoclopram 2021-0 No 1mg ankit 10 mg 8-13 tablet 00:00: 00 metoclopram 2021-0 No 1mg ankit 10 mg 7-28 tablet 00:00: 00 metoclopram 2021-0 No 1mg ankit 10 mg 7-28 tablet 00:00: 00 Humulin 2021-0 No 1unit/m 70/30 U-100 7-22 L Insulin 100 00:00: (70-30) unit/mL 00 subcutaneou s suspension atorvastati 1-0 No 1mg n 10 mg 7-22 tablet 00:00: 00 Myrbetriq 2021-0 No 1mg 25 mg 7-22 tablet,exte 00:00: nded 00 release Trintellix 2021-0 No 1mg 20 mg 7-22 tablet 00:00: 00 metformin 2021-0 No 1mg 500 mg 7-22 tablet 00:00: 00 metoprolol 2021-0 No 1mg tartrate 25 7-22 mg tablet 00:00: 00 mirtazapine 2021-0 No 1mg 15 mg 7-22 tablet 00:00: 00 levothyroxi 2021-0 No 1mcg ne 300 mcg 7-22 tablet 00:00: 00 omeprazole 2021-0 No 1mg 40 mg 7-22 capsule,del 00:00: ayed 00 release Humulin 2021-0 No 1unit/m 70/30 U-100 7-22 L Insulin 100 00:00: (70-30) unit/mL 00 subcutaneou s suspension atorvastati 2021-0 No 1mg n 10 mg 7-22 tablet 00:00: 00 Myrbetriq 2021-0 No 1mg 25 mg 7-22 tablet,exte 00:00: nded 00 release Trintellix 2021-0 No 1mg 20 mg 7-22 tablet 00:00: 00 metformin 2021-0 No 1mg 500 mg 7-22 tablet 00:00: 00 metoprolol 2021-0 No 1mg tartrate 25 7-22 mg tablet 00:00: 00 mirtazapine 2021-0 No 1mg 15 mg 7-22 tablet 00:00: 00 levothyroxi 2021-0 No 1mcg ne 300 mcg 7-22 tablet 00:00: 00 omeprazole 1-0 No 1mg 40 mg 7-22 capsule,del 00:00: ayed 00 release alprazolam 1-0 No 1mg 0.5 mg 7-13 tablet 00:00: 00 metoprolol 2021-0 No 1mg tartrate 25 7-13 mg tablet 00:00: 00 metoclopram 2021-0 No 1mg ankit 10 mg 7-13 tablet 00:00: 00 mirtazapine 2021-0 No 1mg 15 mg 7-13 tablet 00:00: 00 levothyroxi 2021-0 No 1mcg ne 300 mcg 7-13 tablet 00:00: 00 omeprazole 1-0 No 1mg 40 mg 7-13 capsule,del 00:00: ayed 00 release Vitamin D2 1-0 No 1(50,00 1,250 mcg 7-13 0 unit) (50,000 00:00: unit) 00 capsule Humulin 1-0 No 1unit/m 70/30 U-100 7-13 L Insulin 100 00:00: (70-30) unit/mL 00 subcutaneou s suspension Trintellix 2021-0 No 1mg 20 mg 7-13 tablet 00:00: 00 Myrbetriq 2021-0 No 1mg 25 mg 7-13 tablet,exte 00:00: nded 00 release atorvastati 2021-0 No 1mg n 10 mg 7-13 tablet 00:00: 00 metformin 2021-0 No 1mg 500 mg 7-13 tablet 00:00: 00 alprazolam 2020-0 No 1mg 0.5 mg 7-13 tablet 00:00: 00 metoprolol 2020-0 No 1mg tartrate 25 7-13 mg tablet 00:00: 00 metoclopram 2020-0 No 1mg ankit 10 mg 7-13 tablet 00:00: 00 mirtazapine 2020-0 No 1mg 15 mg 7-13 tablet 00:00: 00 levothyroxi 2020-0 No 1mcg ne 300 mcg 7-13 tablet 00:00: 00 omeprazole 2020-0 No 1mg 40 mg 7-13 capsule,del 00:00: ayed 00 release Vitamin D2 2020-0 No 1(50,00 1,250 mcg 7-13 0 unit) (50,000 00:00: unit) 00 capsule Humulin 2020-0 No 1unit/m 70/30 U-100 7-13 L Insulin 100 00:00: (70-30) unit/mL 00 subcutaneou s suspension Trintellix 2020-0 No 1mg 20 mg 7-13 tablet 00:00: 00 Myrbetriq 2020-0 No 1mg 25 mg 7-13 tablet,exte 00:00: nded 00 release atorvastati 2020-0 No 1mg n 10 mg 7-13 tablet 00:00: 00 metformin 2020-0 No 1mg 500 mg 7-13 tablet 00:00: 00 Immunizations Ordered Immunization Filled Immunization Date Status Commen ts Source Name Name Yadi ROBERTSID-19 2021-02-07 Completed Vaccine 00:00:00 Yadi COVID-19 2021-02-07 Completed Vaccine 00:00:00 Vital Signs Vital Name Observation Time Observation Value Comments Source Systolic blood 2021-10-19 08:10:00 123 mm[Hg] Univer sity of pressure [facility] Diastolic blood 2021-10-19 08:10:00 87 mm[Hg] Unive rsity [facility] Heart rate 2021-10-19 08:10:00 82 /[facility] Respiratory rate 2021-10-19 08:10:00 18 /min [facility] in 2021-10-19 08:10:00 98 /min [facility] blood by [facility] Pulse oximetry Branch Body temperature 2021-10-19 04:15:00 36.83 [facility] Body height 2021-10-19 04:15:00 157.5 cm [facility] Body weight 2021-10-19 04:15:00 88.905 kg [facility] BMI 2021-10-19 04:15:00 35.85 kg/m2 [facility] BP Systolic 2021-10-24 11:31:00 110 mm[Hg] BP Diastolic 2021-10-24 11:31:00 49 mm[Hg] Weight Measured 2021-10-24 11:31:00 195.80 pounds Height Measured 2021-10-24 11:31:00 61.81 inches Body Temperature 2021-10-24 11:31:00 97.80 degrees Heart Rate 2021-10-24 11:31:00 95.00 /min Respiratory Rate 2021-10-24 11:31:00 18.00 /min BP Systolic 2021-09-30 16:36:00 129 mm[Hg] BP Diastolic 2021-09-30 16:36:00 68 mm[Hg] Weight Measured 2021-09-30 16:36:00 196.00 pounds Height Measured 2021-09-30 16:36:00 61.81 inches Body Temperature 2021-09-30 16:36:00 97.60 degrees Heart Rate 2021-09-30 16:36:00 108.00 /min Respiratory Rate 2021-09-30 16:36:00 18.00 /min BP Systolic 2021-07-05 11:46:00 115 mm[Hg] BP Diastolic 2021-07-05 11:46:00 75 mm[Hg] Weight Measured 2021-07-05 11:46:00 190.40 pounds Height Measured 2021-07-05 11:46:00 61.81 inches Body Temperature 2021-07-05 11:46:00 98.10 degrees Heart Rate 2021-07-05 11:46:00 89.00 /min Respiratory Rate 2021-07-05 11:46:00 BP Systolic 2021-04-24 11:22:00 123 mm[Hg] BP Diastolic 2021-04-24 11:22:00 57 mm[Hg] Weight Measured 2021-04-24 11:22:00 194.60 pounds Height Measured 2021-04-24 11:22:00 61.81 inches Body Temperature 2021-04-24 11:22:00 97.50 degrees Heart Rate 2021-04-24 11:22:00 85.00 /min Respiratory Rate 2021-04-24 11:22:00 16.00 /min BP Systolic 2021-04-08 15:21:00 148 mm[Hg] BP Diastolic 2021-04-08 15:21:00 82 mm[Hg] Weight Measured 2021-04-08 15:21:00 192.60 pounds Height Measured 2021-04-08 15:21:00 61.81 inches Body Temperature 2021-04-08 15:21:00 98.50 degrees Heart Rate 2021-04-08 15:21:00 100.00 /min Respiratory Rate 2021-04-08 15:21:00 25.00 /min BP Systolic 2021-02-25 16:45:00 135 mm[Hg] BP Diastolic 2021-02-25 16:45:00 82 mm[Hg] Weight Measured 2021-02-25 16:45:00 206.80 pounds Height Measured 2021-02-25 16:45:00 Body Temperature 2021-02-25 16:45:00 98.20 degrees Heart Rate 2021-02-25 16:45:00 86.00 /min Respiratory Rate 2021-02-25 16:45:00 25.00 /min BP Systolic 2021-02-07 11:18:00 136 mm[Hg] BP Diastolic 2021-02-07 11:18:00 84 mm[Hg] Weight Measured 2021-02-07 11:18:00 201.60 pounds Height Measured 2021-02-07 11:18:00 61.81 inches Body Temperature 2021-02-07 11:18:00 98.20 degrees Heart Rate 2021-02-07 11:18:00 87.00 /min Respiratory Rate 2021-02-07 11:18:00 17.00 /min BP Systolic 2021-01-22 14:54:00 122 mm[Hg] BP Diastolic 2021-01-22 14:54:00 76 mm[Hg] Weight Measured 2021-01-22 14:54:00 211.80 pounds Height Measured 2021-01-22 14:54:00 61.81 inches Body Temperature 2021-01-22 14:54:00 98.30 degrees Heart Rate 2021-01-22 14:54:00 80.00 /min Respiratory Rate 2021-01-22 14:54:00 16.00 /min BP Systolic 2021-01-15 10:09:00 114 mm[Hg] BP Diastolic 2021-01-15 10:09:00 72 mm[Hg] Weight Measured 2021-01-15 10:09:00 212.00 pounds Height Measured 2021-01-15 10:09:00 61.81 inches Body Temperature 2021-01-15 10:09:00 98.40 degrees Heart Rate 2021-01-15 10:09:00 98.00 /min Respiratory Rate 2021-01-15 10:09:00 BP Systolic 2021-01-15 10:08:00 114 mm[Hg] BP Diastolic 2021-01-15 10:08:00 72 mm[Hg] Weight Measured 2021-01-15 10:08:00 212.00 pounds Height Measured 2021-01-15 10:08:00 61.81 inches Body Temperature 2021-01-15 10:08:00 98.40 degrees Heart Rate 2021-01-15 10:08:00 98.00 /min Respiratory Rate 2021-01-15 10:08:00 BP Systolic 2021-01-12 11:33:00 119 mm[Hg] BP Diastolic 2021-01-12 11:33:00 78 mm[Hg] Weight Measured 2021-01-12 11:33:00 210.60 pounds Height Measured 2021-01-12 11:33:00 61.81 inches Body Temperature 2021-01-12 11:33:00 98.30 degrees Heart Rate 2021-01-12 11:33:00 92.00 /min Respiratory Rate 2021-01-12 11:33:00 Procedures Procedure Date / Time Performed Performing Clinician Sourc e XR HIPS 3 VW LEFT 2021-10-19 04:42:39 Yovana [facility] NOTICE OF PRIVACY 2021-10-19 04:04:38 Doctor Unassigned, No [facility] [place] [facility] Name [facility] CONSENT/REFUSAL FOR 2021-10-19 04:04:16 Doctor Unassigned, No [facility] [place] DI[facility] AND Name [facility] TREATMENT Plan of Care Planned Activity Planned Date Details Comments Source Goal Plan of Care Note [code = 35227-8] Goal Plan of Care Note [code = 75053-4] Goal Plan of Care Note [code = 27161-7] Goal Plan of Care Note [code = 81547-6] Goal Plan of Care Note [code = 76434-6] Goal Plan of Care Note [code = 70813-9] Goal Plan of Care Note [code = 24127-3] Goal Plan of Care Note [code = 90068-8] Goal Plan of Care Note [code = 99460-0] Goal Plan of Care Note [code = 32732-7] Goal Plan of Care Note [code = 84472-1] Goal Plan of Care Note [code = 74415-7] Goal Plan of Care Note [code = 97409-2] Goal Plan of Care Note [code = 09886-7] Goal Plan of Care Note [code = 91049-3] Goal Plan of Care Note [code = 60089-6] Goal Plan of Care Note [code = 86775-0] Goal Plan of Care Note [code = 82082-8] Goal Plan of Care Note [code = 88021-7] Goal Plan of Care Note [code = 49373-2] Goal Plan of Care Note [code = 31424-9] Goal Plan of Care Note [code = 24930-4] Goal Plan of Care Note [code = 47209-4] Goal Plan of Care Note [code = 28846-3] Goal Plan of Care Note [code = 01333-8] Goal Plan of Care Note [code = 16858-6] Goal Plan of Care Note [code = 73530-0] Goal Plan of Care Note [code = 22503-9] Goal Plan of Care Note [code = 19801-1] Goal Plan of Care Note [code = 37389-9] Goal Plan of Care Note [code = 40183-3] Goal Plan of Care Note [code = 21234-5] Goal Plan of Care Note [code = 33533-7] Goal Plan of Care Note [code = 68725-4] Goal Plan of Care Note [code = 26000-4] Goal Plan of Care Note [code = 23688-9] Goal Plan of Care Note [code = 16158-5] Goal Plan of Care Note [code = 17379-2] Goal Plan of Care Note [code = 94834-0] Goal Plan of Care Note [code = 31798-6] Goal Plan of Care Note [code = 15284-5] Goal Plan of Care Note [code = 72042-0] Goal Plan of Care Note [code = 98252-2] Goal Plan of Care Note [code = 66105-4] Goal Plan of Care Note [code = 05285-8] Goal Plan of Care Note [code = 22324-9] Goal Plan of Care Note [code = 16429-3] Goal Plan of Care Note [code = 74796-2] Goal Plan of Care Note [code = 66936-1] Goal Plan of Care Note [code = 14570-2] Goal Plan of Care Note [code = 60484-0] Goal Plan of Care Note [code = 07938-5] Goal Plan of Care Note [code = 86172-3] Goal Plan of Care Note [code = 39957-5] Encounters Start End Encounter Admission Attending Care Care Encounter Source Date/Time Date/Time Type Type Clinicians Facility Department ID 2021-09-19 Outpatient SCOUT [facility] [id number] [place] 01:03:24 [facility] [id number] [facility] 2021-10-24 2021-10-24 Outpatient [id number] 00:00:00 00:00:00 Visit 422b-482d 22b-482d-8 -8157-b70 [id number]-[id number] 0f6bdd 2021-10-18 2021-10-19 Emergency X OLYA ROD ERT [id number] [facility] 23:20:00 03:26:00 YOVANA hearn [facility] 2021-10-18 2021-10-19 Emergency OLYA Rod [id number] [facility] 23:20:00 03:26:00 Yovana [place]OCK [id number] i [facility] [id number] [facility] [id number] [facility] [address] 2021-09-30 2021-09-30 Outpatient [id number]- [id number] 00:00:00 00:00:00 Visit 0r7y-3ezq j2l-8kgs-k -t7h4-dpb 9o8-nxsr45 [id number] 2021-06-20 2021-06-20 Outpatient SCOUT, [facility] [address] [facility] 12:04:00 23:59:00 JULIA Results Test Description Test Time Test Comments Results Result Comments Source CULTURE, URINE 2021-10-03 SPECIMEN NUMBER: 12:01:26 [id number] CULTURE, URINE SPECIMEN NUMBER: [id number] SPECIMEN COMMENT: URINE SOURCE: URINE REPORT STATUS: FINAL FINAL REPORT: 10/03/2021 10-50,000 CFU/ML MIXED UROGENITAL SOBEIDA UNLESS OTHERWISE INDICATED, ALL TESTING PERFORMED [facility] [employer] [address] [place] [address] POSTER: LILLI VELAZQUEZ M.D. CLIA NUMBER [id number] [place]. [id number] CULTURE, URINE 2021-10-03 00:00:00 Test Item Value Reference Range Interpretation Comme nts CULTURE, URINE (test code = 96118) SPECIMEN NUMBER: [id number] TSH, THIRD [id number] 06:16:09 Test Item Value Reference Range Interpretation Comments TSH, THIRD <0.010 UIU/ML 0.400-4.100 L UNLESS OTHERW ISE GENERATION (test INDICATED, ALL code = 2821) TESTING PERFORM ED ATCLINICAL PATH [employer] [address] [address] [facility] DIRECTOR: LILLI VELAZQUEZ M.D. CLIA NUMBER [id number] CAP ACCREDITATION N O. [id number] HEMOGLOBIN [id number] 05:23:24 Test Item Value Reference Range Interpretation Comments HEMOGLOBIN A1c (test 6.7 % 4.2-5.6 H AMERIC AN DIABETES code = 03942) ASSOCIATION IDELINES FOR HGB A1C: PREDIABETES/INC REASED RISK . . . . . . . 5.7 -6.4% DIAGNOSIS OF DI ABETES . . . . . . . . . >=6 .5% WITH CONFIRMATION OR APPROPRIATE SYMPTOMS NOTE: ASSAY MAY BE AFFECTED BY HEMOGLOBINOPATH IES (SICKLE CELL ANEMIA, S- C DISEASE, OTHERS) OR JATINDER FICIALLY LOWERED BY DECR EASED RED CELL SURVIVAL ( HEMOLYTIC ANEMIAS, BLOOD LOSS, ETC.). CONSIDER ALTERN ATE TESTING OR LABORATORY C ONSULTATION. COMPREHENSIVE METABOLIC [id number] 04:45:06 Test Item Value Reference Range Interpretation Comments GLUCOSE (test code = 266 MG/DL 70-99 H 2216) BUN (test code = 17 MG/DL 8-23 2207) CREATININE (test 0.92 MG/DL 0.60-1.30 code = 221) eGFR (2020 CKD-EPI) 70 ML/MIN/1.73 >60 (test code = 94394) CALC BUN/CREAT (test 18 RATIO 6-28 code = 2235) SODIUM (test code = 136 MEQ/L 226-158 2859) POTASSIUM (test code 5.3 MEQ/L 3.5-5.4 = 2227) CHLORIDE (test code 98 MEQ/L 95-107 = 2214) CARBON DIOXIDE (test 22 MEQ/L 19-31 code = 220) CALCIUM (test code = 8.8 MG/DL 8.5-10.5 2208) PROTEIN, TOTAL (test 7.4 G/DL 6.1-8.3 code = 2229) ALBUMIN (test code = 4.1 G/DL 3.5-5.2 2200) CALC GLOBULIN (test 3.3 G/DL 1.9-3.7 code = 2240) CALC A/G RATIO (test 1.2 RATIO 1.0-2.6 code = 2234) BILIRUBIN, TOTAL 0.3 MG/DL See_Comment [Automated message] (test code = 2207) The syste m which generated this result transmit esdras reference range : <=1.2. The refe rence range was not u sed to interpret th is result as normal/abnormal . ALKALINE PHOSPHATASE 88 U/L 40-140 (test code = 2204) AST (test code = 32 U/L 9-40 2217) ALT (test code = 29 U/L 5-40 2218) HEMOGLOBIN [id number] 00:00:00 Test Item Value Reference Range Interpretation Comments HEMOGLOBIN A1c (test code = 10581) 6.7 % HEMOGLOBIN [id number] 00:00:00 Test Item Value Reference Range Interpretation Comments HEMOGLOBIN A1c (test code = 83509) 6.7 % COMPREHENSIVE METABOLIC [id number] 00:00:00 Test Item Value Reference Range Interpretation Comments GLUCOSE (test code = 2217) 266 MG/DL BUN (test code = 2208) 17 MG/DL CREATININE (test code = 2214) 0.92 MG/DL eGFR (2020 CKD-EPI) (test code 70 ML/MIN/1.73 = 63274) CALC BUN/CREAT (test code = 18 RATIO 2235) SODIUM (test code = 2231) 136 MEQ/L POTASSIUM (test code = 2228) 5.3 MEQ/L CHLORIDE (test code = 2215) 98 MEQ/L CARBON DIOXIDE (test code = 22 MEQ/L 2205) CALCIUM (test code = 2209) 8.8 MG/DL PROTEIN, TOTAL (test code = 7.4 G/DL 2228) ALBUMIN (test code = 2201) 4.1 G/DL CALC GLOBULIN (test code = 3.3 G/DL 2239) CALC A/G RATIO (test code = 1.2 RATIO 2233) BILIRUBIN, TOTAL (test code = 0.3 MG/DL 2206) ALKALINE PHOSPHATASE (test 88 U/L code = 2204) AST (test code = 2218) 32 U/L ALT (test code = 2219) 29 U/L [id number] 00:00:00 Test Item Value Reference Range Interpretation Comments TSH, THIRD GENERATION (test <0.010 UIU/ML code = 2821) [id number] 00:00:00 Test Item Value Reference Range Interpretation Comments TSH, THIRD GENERATION (test <0.010 UIU/ML code = 2821) TSH, THIRD [id number] 06:18:54 Test Item Value Reference Range Interpretation Comments TSH, THIRD GENERATION (test code 0.190 UIU/ML 0.400-4.100 L = 2821) HEMOGLOBIN [id number] 03:11:56 Test Item Value Reference Range Interpretation Comments HEMOGLOBIN A1c (test 8.4 % 4.2-5.6 H AMERIC AN DIABETES code = 08968) ASSOCIATION IDELINES FOR HGB A1C: PREDIABETES/INC REASED RISK . . . . . . . 5.7 -6.4% DIAGNOSIS OF DI ABETES . . . . . . . . . >=6 .5% WITH CONFIRMATION OR APPROPRIATE SYMPTOMS NOTE: ASSAY MAY BE AFFECTED BY HEMOGLOBINOPATH IES (SICKLE CELL ANEMIA, S- C DISEASE, OTHERS) OR JATINDER FICIALLY LOWERED BY DECR EASED RED CELL SURVIVAL ( HEMOLYTIC ANEMIAS, BLOOD LOSS, ETC.). CONSIDER ALTERN ATE TESTING OR LABORATORY C ONSULTATION. COMPREHENSIVE METABOLIC [id number] 03:11:06 Test Item Value Reference Range Interpretation Comments GLUCOSE (test code = 141 MG/DL 70-99 H 2216) BUN (test code = 31 MG/DL 8-23 H 2207) CREATININE (test 1.07 MG/DL 0.60-1.30 code = 221) eGFR (2020 CKD-EPI) 59 ML/MIN/1.73 >60 L (test code = 35246) CALC BUN/CREAT (test 29 RATIO 6-28 H code = 2235) SODIUM (test code = 141 MEQ/L 079-169 7260) POTASSIUM (test code 4.7 MEQ/L 3.5-5.4 = 2227) CHLORIDE (test code 99 MEQ/L 95-107 = 2214) CARBON DIOXIDE (test 26 MEQ/L 19-31 code = 220) CALCIUM (test code = 8.8 MG/DL 8.5-10.5 [...] = 41 U/L 5-40 H 2218) LIPID [id number] 03:11:06 Test Item Value Reference Range Interpretation [...] MOREINFORMATION , SEE CLIENT ANNOUNCE MENT AT [email or web address] RISK RATIO LDL/HDL 1.28 RATIO <3.22 (test code = 2238) IRON, [id number] 03:11:06 Test Item Value Reference Range Interpretation Comments IRON, SERUM (test 59 UG/DL 37-145 UNLESS OT HERWISE code = 2222) INDICATED, ALL TESTING PERFORMED ATCLI NICAL PATHOLOGY [facility] [employer] [address] [place], [place] [id number] [place] [address] DIRECTOR: LILLI VELAZQUEZ M.D. CLIA NUMBER [id number] CAP ACCREDITATION N O. [id number] HEMOGLOBIN [id number] 00:00:00 Test Item Value Reference Range Interpretation Comments HEMOGLOBIN A1c (test code = 45205) 8.4 % HEMOGLOBIN [id number] 00:00:00 Test Item Value Reference Range Interpretation Comments HEMOGLOBIN A1c (test code = 11438) 8.4 % COMPREHENSIVE METABOLIC [id number] 00:00:00 Test Item Value Reference Range Interpretation Comments GLUCOSE (test code = 2217) 141 MG/DL BUN (test code = 2208) 31 MG/DL CREATININE (test code = 2214) 1.07 MG/DL eGFR (2020 CKD-EPI) (test code 59 ML/MIN/1.73 = 98244) CALC BUN/CREAT (test code = 29 RATIO 2235) SODIUM (test code = 2231) 141 MEQ/L POTASSIUM (test code = 2228) 4.7 MEQ/L CHLORIDE (test code = 2215) 99 MEQ/L CARBON DIOXIDE (test code = 26 MEQ/L 2205) CALCIUM (test code = 220) 8.8 MG/DL PROTEIN, TOTAL (test code = 8.0 G/DL 2228) ALBUMIN (test code = 2201) 4.5 G/DL CALC GLOBULIN (test code = 3.5 G/DL 2239) CALC A/G RATIO (test code = 1.3 RATIO 2233) BILIRUBIN, TOTAL (test code = 0.4 MG/DL 2206) ALKALINE PHOSPHATASE (test 67 U/L code = 2204) AST (test code = 221) 49 U/L ALT (test code = 2219) 41 U/L LIPID [id number] 00:00:00 Test Item Value Reference Range Interpretation Comments CHOLESTEROL (test code = 2210) 113 MG/DL TRIGLYCERIDES (test code = 2232) 165 MG/DL HDL CHOLESTEROL (test code = 0) 39 MG/DL CALC LDL CHOL (test code = 2236) 50 MG/DL RISK RATIO LDL/HDL (test code = 1.28 RATIO 2238) [id number] 00:00:00 Test Item Value Reference Range Interpretation Comments TSH, THIRD GENERATION (test code 0.190 UIU/ML = 2821) [id number] 00:00:00 Test Item Value Reference Range Interpretation Comments TSH, THIRD GENERATION (test code 0.190 UIU/ML = 2821) IRON, [id number] 00:00:00 Test Item Value Reference Range Interpretation Comments IRON, SERUM (test code = 2221) 59 UG/DL HEMOGLOBIN [id number] 00:00:00 Test Item Value Reference Range Interpretation Comments HEMOGLOBIN A1c (test code = 79300) 8.4 % HEMOGLOBIN [id number] 00:00:00 Test Item Value Reference Range Interpretation Comments HEMOGLOBIN A1c (test code = 57189) 8.4 % COMPREHENSIVE METABOLIC [id number] 00:00:00 Test Item Value Reference Range Interpretation Comments GLUCOSE (test code = 2217) 141 MG/DL BUN (test code = 8) 31 MG/DL CREATININE (test code = 2214) 1.07 MG/DL eGFR (2020 CKD-EPI) (test code 59 ML/MIN/1.73 = 78849) CALC BUN/CREAT (test code = 29 RATIO 2235) SODIUM (test code = 2231) 141 MEQ/L POTASSIUM (test code = 2228) 4.7 MEQ/L CHLORIDE (test code = 2215) 99 MEQ/L CARBON DIOXIDE (test code = 26 MEQ/L 2205) CALCIUM (test code = 2209) 8.8 MG/DL PROTEIN, TOTAL (test code = 8.0 G/DL 2228) ALBUMIN (test code = 2201) 4.5 G/DL CALC GLOBULIN (test code = 3.5 G/DL 2239) CALC A/G RATIO (test code = 1.3 RATIO 223) BILIRUBIN, TOTAL (test code = 0.4 MG/DL 2206) ALKALINE PHOSPHATASE (test 67 U/L code = 220) AST (test code = 2218) 49 U/L ALT (test code = 2219) 41 U/L LIPID [id number] 00:00:00 Test Item Value Reference Range Interpretation Comments CHOLESTEROL (test code = 2210) 113 MG/DL TRIGLYCERIDES (test code = 2232) 165 MG/DL HDL CHOLESTEROL (test code = 2220) 39 MG/DL CALC LDL CHOL (test code = 2237) 50 MG/DL RISK RATIO LDL/HDL (test code = 1.28 RATIO 2238) [id number] 00:00:00 Test Item Value Reference Range Interpretation Comments TSH, THIRD GENERATION (test code 0.190 UIU/ML = 2821) [id number] 00:00:00 Test Item Value Reference Range Interpretation Comments TSH, THIRD GENERATION (test code 0.190 UIU/ML = 2821) IRON, [id number] 00:00:00 Test Item Value Reference Range Interpretation Comments IRON, SERUM (test code = 2222) 59 UG/DL ALBUMIN/CREATININE RATIO, URINE, [id number] 05:57:19 Test Item Value Reference Range Interpretation Comments CREATININE, URINE, 212.0 MG/DL NOT ESTAB CONC. (test code = 2071) ALBUMIN, URINE, 16.0 MG/DL Note: Test name is RANDOM (test code changed to Urine Albumin = 48628) from [employer] in in accordance with ADA and NKF Guidelines, and Albumin/Creatin ine ratio reference inter jamshid reflects those Guidelines. Jameel lytic methodology is unchanged. No r eference interval for Ra ndom Urine Albumin i s available. CALC 75 MG/G <30 H UNLESS OTHERWI SE ALBUMIN/CREAT, RND INDICATED , ALL TESTING (test code = PERFORMED ATCLI NICAL 51849) PATHOLOGY [facility], [facility]. [address] [place] [address] 4 LABORATORY DIRE CTOR: LILLI SIERRA M.D. CLIA NUMBER [id number] [place] [id number] HEMOGLOBIN [id number] 04:12:15 Test Item Value Reference Range Interpretation Comments HEMOGLOBIN A1c (test 9.1 % 4.2-5.6 H AMERIC AN DIABETES code = 59300) ASSOCIATION IDELINES FOR HGB A1C: PREDIABETES/INC REASED RISK . . . . . . . 5.7 -6.4% DIAGNOSIS OF DI ABETES . . . . . . . . . >=6 .5% WITH CONFIRMATION OR APPROPRIATE SYMPTOMS NOTE: ASSAY MAY BE AFFECTED BY HEMOGLOBINOPATH IES (SICKLE CELL ANEMIA, S- C DISEASE, OTHERS) OR JATINDER FICIALLY LOWERED BY DECR EASED RED CELL SURVIVAL ( HEMOLYTIC ANEMIAS, BLOOD LOSS, ETC.). CONSIDER ALTERN ATE TESTING OR LABORATORY C ONSULTATION. HEMOGLOBIN [id number] 00:00:00 Test Item Value Reference Range Interpretation Comments HEMOGLOBIN A1c (test code = 69325) 9.1 % HEMOGLOBIN [id number] 00:00:00 Test Item Value Reference Range Interpretation Comments HEMOGLOBIN A1c (test code = 39750) 9.1 % MICROALBUMIN/CREATININE, RANDOM AND [id number] 00:00:00 Test Item Value Reference Range Interpretation Comments CREATININE, URINE, CONC. (test 212.0 MG/DL code = 2072) ALBUMIN, URINE, RANDOM (test code 16.0 MG/DL = 01902) CALC ALBUMIN/CREAT, RND (test 75 MG/G code = 07821) HEMOGLOBIN [id number] 00:00:00 Test Item Value Reference Range Interpretation Comments HEMOGLOBIN A1c (test code = 82553) 9.1 % HEMOGLOBIN [id number] 00:00:00 Test Item Value Reference Range Interpretation Comments HEMOGLOBIN A1c (test code = 96783) 9.1 % MICROALBUMIN/CREATININE, RANDOM AND [id number] 00:00:00 Test Item Value Reference Range Interpretation Comments CREATININE, URINE, CONC. (test 212.0 MG/DL code = 2072) ALBUMIN, URINE, RANDOM (test code 16.0 MG/DL = 75457) CALC ALBUMIN/CREAT, RND (test 75 MG/G code = 13254) PATHOLOGIST SMEAR [id number] 00:00:00 Test Item Value Reference Range Interpretation Comments DIAGNOSIS: (test code = 8200) (NOTE) COMMENTS: (test code = 8205) (NOTE) MICROSCOPIC DESCRIPTION: (test (NOTE) code = 8210) PATHOLOGIST: (test code = 8250) (NOTE) CPT: (test code = 8400) 29486 WBC (test code = 1001) 2.7 K/UL RBC (test code = 1002) 3.09 M/UL HEMOGLOBIN (test code = 1003) 8.2 G/DL HEMATOCRIT (test code = 1004) 25.6 % MCV (test code = 1005) 82.8 fL MCH (test code = 1006) 26.5 PG MCHC (test code = 1007) 32.0 G/DL RDW (test code = 1038) 14.1 % NEUTROPHILS (test code = 1008) 52.0 % LYMPHOCYTES (test code = 1010) 35.8 % MONOCYTES (test code = 1011) 7.2 % EOSINOPHILS (test code = 1012) 4.2 % BASOPHILS (test code = 1013) 0.4 % NUCLEATED RBCS (test code = 0.0 /100WBC'S 1065) PLATELET COUNT (test code = 99 K/UL 1015) ABSOLUTE NEUTROPHILS (test code 1.38 K/UL = 1066) ABSOLUTE LYMPHOCYTES (test code 0.95 K/UL = 1067) ABSOLUTE MONOCYTES (test code = 0.19 K/UL 1068) ABSOLUTE EOSINOPHILS (test code 0.11 K/UL = 1040) ABSOLUTE BASOPHILS (test code = 0.01 K/UL 1069) ABS NUCLEATED RBCS (test code = 0.00 K/UL 05165) COMMENTS (test code = 1016) (NOTE) PATHOLOGIST SMEAR [id number] 00:00:00 Test Item Value Reference Range Interpretation Comments DIAGNOSIS: (test code = 8200) (NOTE) COMMENTS: (test code = 8205) (NOTE) MICROSCOPIC DESCRIPTION: (test (NOTE) code = 8210) PATHOLOGIST: (test code = 8250) (NOTE) CPT: (test code = 8400) 70497 WBC (test code = 1001) 2.7 K/UL RBC (test code = 1002) 3.09 M/UL HEMOGLOBIN (test code = 1003) 8.2 G/DL HEMATOCRIT (test code = 1004) 25.6 % MCV (test code = 1005) 82.8 fL MCH (test code = 1006) 26.5 PG MCHC (test code = 1007) 32.0 G/DL RDW (test code = 1038) 14.1 % NEUTROPHILS (test code = 1008) 52.0 % LYMPHOCYTES (test code = 1010) 35.8 % MONOCYTES (test code = 1011) 7.2 % EOSINOPHILS (test code = 1012) 4.2 % BASOPHILS (test code = 1013) 0.4 % NUCLEATED RBCS (test code = 0.0 /100WBC'S 1065) PLATELET COUNT (test code = 99 K/UL 1015) ABSOLUTE NEUTROPHILS (test code 1.38 K/UL = 1066) ABSOLUTE LYMPHOCYTES (test code 0.95 K/UL = 1067) ABSOLUTE MONOCYTES (test code = 0.19 K/UL 1068) ABSOLUTE EOSINOPHILS (test code 0.11 K/UL = 1040) ABSOLUTE BASOPHILS (test code = 0.01 K/UL 1069) ABS NUCLEATED RBCS (test code = 0.00 K/UL 32285) COMMENTS (test code = 1016) (NOTE) [id number] 00:00:00 Test Item Value Reference Range Interpretation Comments FERRITIN (test code = 5) 42 NG/ML [id number] 00:00:00 Test Item Value Reference Range Interpretation Comments TRANSFERRIN (test code = 4936) 281 MG/DL IRON BINDING CAPACITY AND IRON AND % [id number] 00:00:00 Test Item Value Reference Range Interpretation Comments IRON, SERUM (test code = 2222) 28 UG/DL UNSATURATED IBC (test code = 31223) 315 UG/DL CALC TOTAL IBC (test code = 7) 343 UG/DL CALC % IRON SAT (test code = 2078) 8 % PROTIME AND [id number] 00:00:00 Test Item Value Reference Range Interpretation Comments PROTHROMBIN TIME (PT) (test code 14.8 SECONDS = 1402) INR (test code = 26477) 1.1 PTT (test code = 1403) 35.8 SECONDS RHEUMATOID FACTOR, [id number] 00:00:00 Test Item Value Reference Range Interpretation Comments RHEUMATOID FACTOR, QUANT (test code <10 IU/ML = 3502) RHEUMATOID FACTOR, [id number] 00:00:00 Test Item Value Reference Range Interpretation Comments RHEUMATOID FACTOR, QUANT (test code <10 IU/ML = 3502) CCP [id number] 00:00:00 Test Item Value Reference Range Interpretation Comments CCP IgG (test code = 43371) <0.5 U/ML CCP [id number] 00:00:00 Test Item Value Reference Range Interpretation Comments CCP IgG (test code = 52783) <0.5 U/ML ASH (SM) [id number] 00:00:00 Test Item Value Reference Range Interpretation Comments ASH (Sm) ANTIBODY (test code = <0.2 AI 26354) DNA DS [id number] 00:00:00 Test Item Value Reference Range Interpretation Comments dsDNA ANTIBODY (test code = 4287) 1.0 IU/ML [id number] 00:00:00 Test Item Value Reference Range Interpretation Comments FERRITIN (test code = 2075) 42 NG/ML [id number] 00:00:00 Test Item Value Reference Range Interpretation Comments TRANSFERRIN (test code = 4936) 281 MG/DL IRON BINDING CAPACITY AND IRON AND % [id number] 00:00:00 Test Item Value Reference Range Interpretation Comments IRON, SERUM (test code = 2222) 28 UG/DL UNSATURATED IBC (test code = 02343) 315 UG/DL CALC TOTAL IBC (test code = 7) 343 UG/DL CALC % IRON SAT (test code = 2078) 8 % PROTIME AND [id number] 00:00:00 Test Item Value Reference Range Interpretation Comments PROTHROMBIN TIME (PT) (test code 14.8 SECONDS = 1402) INR (test code = 25109) 1.1 PTT (test code = 1403) 35.8 SECONDS RHEUMATOID FACTOR, [id number] 00:00:00 Test Item Value Reference Range Interpretation Comments RHEUMATOID FACTOR, QUANT (test code <10 IU/ML = 3502) RHEUMATOID FACTOR, [id number] 00:00:00 Test Item Value Reference Range Interpretation Comments RHEUMATOID FACTOR, QUANT (test code <10 IU/ML = 3502) CCP [id number] 00:00:00 Test Item Value Reference Range Interpretation Comments CCP IgG (test code = 76261) <0.5 U/ML CCP [id number] 00:00:00 Test Item Value Reference Range Interpretation Comments CCP IgG (test code = 61878) <0.5 U/ML ASH (SM) [id number] 00:00:00 Test Item Value Reference Range Interpretation Comments ASH (Sm) ANTIBODY (test code = <0.2 AI 65086) DNA DS [id number] 00:00:00 Test Item Value Reference Range Interpretation Comments dsDNA ANTIBODY (test code = 4287) 1.0 IU/ML CULTURE, [id number] 00:00:00 Test Item Value Reference Range Interpretation Comments CULTURE, URINE (test SPECIMEN NUMBER: code = 49382) [id number] CULTURE, [id number] 00:00:00 Test Item Value Reference Range Interpretation Comments CULTURE, URINE (test SPECIMEN NUMBER: code = 61152) [id number] JAMEEL TITER AND PATTERN [REFLEX]2021-01-17 00:00:00 Test Item Value Reference Range Interpretation Comments PATTERN (test code = SPECKLED 50674) JAMEEL TITER (test code = 1:640 TITER 3550) PATTERN 2 (test code = NOT DETECTED 50799) JAMEEL TITER 2 (test code = NOT DETECTED TITER 57360) PATTERN 3 (test code = NOT DETECTED 04548) JAMEEL TITER 3 (test code = NOT DETECTED TITER 04709) METHOD (test code = 85239) (NOTE) JAMEEL TITER AND PATTERN [REFLEX]2021-01-17 00:00:00 Test Item Value Reference Range Interpretation Comments PATTERN (test code = SPECKLED 95904) JAMEEL TITER (test code = 1:640 TITER 3550) PATTERN 2 (test code = NOT DETECTED 25813) JAMEEL TITER 2 (test code = NOT DETECTED TITER 30310) PATTERN 3 (test code = NOT DETECTED 79452) JAMEEL TITER 3 (test code = NOT DETECTED TITER 53805) METHOD (test code = 41185) (NOTE) CBC W/AUTO [id number] 00:00:00 Test Item Value Reference Range Interpretation Comments WBC (test code = 1001) 3.1 K/UL RBC (test code = 1002) 3.14 M/UL HEMOGLOBIN (test code = 1003) 8.4 G/DL HEMATOCRIT (test code = 1004) 25.9 % MCV (test code = 1005) 82.5 fL MCH (test code = 1006) 26.8 PG MCHC (test code = 1007) 32.4 G/DL RDW (test code = 1038) 14.5 % NEUTROPHILS (test code = 1008) 61.2 % LYMPHOCYTES (test code = 1010) 25.5 % MONOCYTES (test code = 1011) 8.8 % EOSINOPHILS (test code = 1012) 3.9 % BASOPHILS (test code = 1013) 0.3 % IMMATURE GRANULOCYTES (test 0.3 % code = 1036) NUCLEATED RBCS (test code = 0.0 /100WBC'S 1065) PLATELET COUNT (test code = 85 K/UL 1015) ABSOLUTE NEUTROPHILS (test code 1.87 K/UL = 1066) ABSOLUTE LYMPHOCYTES (test code 0.78 K/UL = 1067) ABSOLUTE MONOCYTES (test code = 0.27 K/UL 1068) ABSOLUTE EOSINOPHILS (test code 0.12 K/UL = 1040) ABSOLUTE BASOPHILS (test code = 0.01 K/UL 1069) ABS IMMATURE GRANULOCYTES (test 0.01 K/UL code = 1020) ABS NUCLEATED RBCS (test code = 0.00 K/UL 03489) CBC W/AUTO [id number] 00:00:00 Test Item Value Reference Range Interpretation Comments WBC (test code = 1001) 3.1 K/UL RBC (test code = 1002) 3.14 M/UL HEMOGLOBIN (test code = 1003) 8.4 G/DL HEMATOCRIT (test code = 1004) 25.9 % MCV (test code = 1005) 82.5 fL MCH (test code = 1006) 26.8 PG MCHC (test code = 1007) 32.4 G/DL RDW (test code = 1038) 14.5 % NEUTROPHILS (test code = 1008) 61.2 % LYMPHOCYTES (test code = 1010) 25.5 % MONOCYTES (test code = 1011) 8.8 % EOSINOPHILS (test code = 1012) 3.9 % BASOPHILS (test code = 1013) 0.3 % IMMATURE GRANULOCYTES (test 0.3 % code = 1036) NUCLEATED RBCS (test code = 0.0 /100WBC'S 1065) PLATELET COUNT (test code = 85 K/UL 1015) ABSOLUTE NEUTROPHILS (test code 1.87 K/UL = 1066) ABSOLUTE LYMPHOCYTES (test code 0.78 K/UL = 1067) ABSOLUTE MONOCYTES (test code = 0.27 K/UL 1068) ABSOLUTE EOSINOPHILS (test code 0.12 K/UL = 1040) ABSOLUTE BASOPHILS (test code = 0.01 K/UL 1069) ABS IMMATURE GRANULOCYTES (test 0.01 K/UL code = 1020) ABS NUCLEATED RBCS (test code = 0.00 K/UL 87997) COMPREHENSIVE METABOLIC [id number] 00:00:00 Test Item Value Reference Range Interpretation Comments GLUCOSE (test code = 2217) 139 MG/DL BUN (test code = 2208) 21 MG/DL CREATININE (test code = 2214) 0.83 MG/DL eGFR AMER. (test code 88 ML/MIN/1.73 = 93569) eGFR NON- AMER. (test 76 ML/MIN/1.73 code = 34574) CALC BUN/CREAT (test code = 25 RATIO 2235) SODIUM (test code = 2231) 140 MEQ/L POTASSIUM (test code = 2228) 4.8 MEQ/L CHLORIDE (test code = 2215) 102 MEQ/L CARBON DIOXIDE (test code = 25 MEQ/L 2206) CALCIUM (test code = 2209) 9.2 MG/DL PROTEIN, TOTAL (test code = 7.2 G/DL 2229) ALBUMIN (test code = 2201) 3.6 G/DL CALC GLOBULIN (test code = 3.6 G/DL 2240) CALC A/G RATIO (test code = 1.0 RATIO 2234) BILIRUBIN, TOTAL (test code = 0.6 MG/DL 2207) ALKALINE PHOSPHATASE (test 101 U/L code = 2204) AST (test code = 2218) 30 U/L ALT (test code = 2219) 23 U/L [id number] 00:00:00 Test Item Value Reference Range Interpretation Comments NT-proBNP (test code = 86665) 247 PG/ML [id number] 00:00:00 Test Item Value Reference Range Interpretation Comments NT-proBNP (test code = 49509) 247 PG/ML JAMEEL (ANTI-NUCLEAR AB) WITH REFLEX [id number] 00:00:00 Test Item Value Reference Range Interpretation Comments ANTI-NUCLEAR ANTIBODIES (test code = POSITIVE 3506) C-REACTIVE [id number] 00:00:00 Test Item Value Reference Range Interpretation Comments C-REACTIVE PROTEIN (test code = 1.1 MG/DL 3513) SEDIMENTATION [id number] 00:00:00 Test Item Value Reference Range Interpretation Comments SEDIMENTATION RATE (test code = 88 MM/HOUR 1017) [id number] 00:00:00 Test Item Value Reference Range Interpretation Comments D-DIMER (test code = 1405) 0.77 UG/MLFEU CBC W/AUTO [id number] 00:00:00 Test Item Value Reference Range Interpretation Comments WBC (test code = 1001) 3.1 K/UL RBC (test code = 1002) 3.14 M/UL HEMOGLOBIN (test code = 1003) 8.4 G/DL HEMATOCRIT (test code = 1004) 25.9 % MCV (test code = 1005) 82.5 fL MCH (test code = 1006) 26.8 PG MCHC (test code = 1007) 32.4 G/DL RDW (test code = 1038) 14.5 % NEUTROPHILS (test code = 1008) 61.2 % LYMPHOCYTES (test code = 1010) 25.5 % MONOCYTES (test code = 1011) 8.8 % EOSINOPHILS (test code = 1012) 3.9 % BASOPHILS (test code = 1013) 0.3 % IMMATURE GRANULOCYTES (test 0.3 % code = 1036) NUCLEATED RBCS (test code = 0.0 /100WBC'S 1065) PLATELET COUNT (test code = 85 K/UL 1015) ABSOLUTE NEUTROPHILS (test code 1.87 K/UL = 1066) ABSOLUTE LYMPHOCYTES (test code 0.78 K/UL = 1067) ABSOLUTE MONOCYTES (test code = 0.27 K/UL 1068) ABSOLUTE EOSINOPHILS (test code 0.12 K/UL = 1040) ABSOLUTE BASOPHILS (test code = 0.01 K/UL 1069) ABS IMMATURE GRANULOCYTES (test 0.01 K/UL code = 1020) ABS NUCLEATED RBCS (test code = 0.00 K/UL 55115) CBC W/AUTO [id number] 00:00:00 Test Item Value Reference Range Interpretation Comments WBC (test code = 1001) 3.1 K/UL RBC (test code = 1002) 3.14 M/UL HEMOGLOBIN (test code = 1003) 8.4 G/DL HEMATOCRIT (test code = 1004) 25.9 % MCV (test code = 1005) 82.5 fL MCH (test code = 1006) 26.8 PG MCHC (test code = 1007) 32.4 G/DL RDW (test code = 1038) 14.5 % NEUTROPHILS (test code = 1008) 61.2 % LYMPHOCYTES (test code = 1010) 25.5 % MONOCYTES (test code = 1011) 8.8 % EOSINOPHILS (test code = 1012) 3.9 % BASOPHILS (test code = 1013) 0.3 % IMMATURE GRANULOCYTES (test 0.3 % code = 1036) NUCLEATED RBCS (test code = 0.0 /100WBC'S 1065) PLATELET COUNT (test code = 85 K/UL 1015) ABSOLUTE NEUTROPHILS (test code 1.87 K/UL = 1066) ABSOLUTE LYMPHOCYTES (test code 0.78 K/UL = 1067) ABSOLUTE MONOCYTES (test code = 0.27 K/UL 1068) ABSOLUTE EOSINOPHILS (test code 0.12 K/UL = 1040) ABSOLUTE BASOPHILS (test code = 0.01 K/UL 1069) ABS IMMATURE GRANULOCYTES (test 0.01 K/UL code = 1020) ABS NUCLEATED RBCS (test code = 0.00 K/UL 96948) COMPREHENSIVE METABOLIC [id number] 00:00:00 Test Item Value Reference Range Interpretation Comments GLUCOSE (test code = 2217) 139 MG/DL BUN (test code = 2208) 21 MG/DL CREATININE (test code = 2214) 0.83 MG/DL eGFR AMER. (test code 88 ML/MIN/1.73 = 04486) eGFR NON- AMER. (test 76 ML/MIN/1.73 code = 36373) CALC BUN/CREAT (test code = 25 RATIO 2235) SODIUM (test code = 2231) 140 MEQ/L POTASSIUM (test code = 2228) 4.8 MEQ/L CHLORIDE (test code = 2215) 102 MEQ/L CARBON DIOXIDE (test code = 25 MEQ/L 2206) CALCIUM (test code = 2209) 9.2 MG/DL PROTEIN, TOTAL (test code = 7.2 G/DL 2229) ALBUMIN (test code = 2201) 3.6 G/DL CALC GLOBULIN (test code = 3.6 G/DL 2240) CALC A/G RATIO (test code = 1.0 RATIO 2234) BILIRUBIN, TOTAL (test code = 0.6 MG/DL 2207) ALKALINE PHOSPHATASE (test 101 U/L code = 2204) AST (test code = 2218) 30 U/L ALT (test code = 2219) 23 U/L [id number] 00:00:00 Test Item Value Reference Range Interpretation Comments NT-proBNP (test code = 50887) 247 PG/ML [id number] 00:00:00 Test Item Value Reference Range Interpretation Comments NT-proBNP (test code = 56545) 247 PG/ML JAMEEL (ANTI-NUCLEAR AB) WITH REFLEX [id number] 00:00:00 Test Item Value Reference Range Interpretation Comments ANTI-NUCLEAR ANTIBODIES (test code = POSITIVE 3506) C-REACTIVE [id number] 00:00:00 Test Item Value Reference Range Interpretation Comments C-REACTIVE PROTEIN (test code = 1.1 MG/DL 3513) SEDIMENTATION [id number] 00:00:00 Test Item Value Reference Range Interpretation Comments SEDIMENTATION RATE (test code = 88 MM/HOUR 1017) [id number] 00:00:00 Test Item Value Reference Range Interpretation Comments D-DIMER (test code = 1405) 0.77 UG/MLFEU HEMOGLOBIN [id number] 00:00:00 Test Item Value Reference Range Interpretation Comments HEMOGLOBIN A1c (test code = 54113) 7.5 % HEMOGLOBIN [id number] 00:00:00 Test Item Value Reference Range Interpretation Comments HEMOGLOBIN A1c (test code = 69961) 7.5 % HEMOGLOBIN [id number] 00:00:00 Test Item Value Reference Range Interpretation Comments HEMOGLOBIN A1c (test code = 45318) 7.5 % HEMOGLOBIN [id number] 00:00:00 Test Item Value Reference Range Interpretation Comments HEMOGLOBIN A1c (test code = 46493) 7.5 % CULTURE, [id number] 00:00:00 Test Item Value Reference Range Interpretation Comments CULTURE, URINE (test SPECIMEN NUMBER: code = 30356) [id number] CULTURE, [id number] 00:00:00 Test Item Value Reference Range Interpretation Comments CULTURE, URINE (test SPECIMEN NUMBER: code = 50729) [id number] HEMOGLOBIN [id number] 00:00:00 Test Item Value Reference Range Interpretation Comments HEMOGLOBIN A1c (test code = 02731) 8.6 % HEMOGLOBIN [id number] 00:00:00 Test Item Value Reference Range Interpretation Comments HEMOGLOBIN A1c (test code = 74202) 8.6 % LIPID [id number] 00:00:00 Test Item Value Reference Range Interpretation Comments CHOLESTEROL (test code = 2210) 104 MG/DL TRIGLYCERIDES (test code = 2232) 164 MG/DL HDL CHOLESTEROL (test code = 2220) 39 MG/DL CALC LDL CHOL (test code = 2237) 41 MG/DL RISK RATIO LDL/HDL (test code = 1.05 RATIO 2238) COMPREHENSIVE METABOLIC [id number] 00:00:00 Test Item Value Reference Range Interpretation Comments GLUCOSE (test code = 2217) 330 MG/DL BUN (test code = 2208) 11 MG/DL CREATININE (test code = 2214) 0.84 MG/DL eGFR AMER. (test code 87 ML/MIN/1.73 = 40997) eGFR NON- AMER. (test 75 ML/MIN/1.73 code = 74553) CALC BUN/CREAT (test code = 13 RATIO 2235) SODIUM (test code = 2231) 136 MEQ/L POTASSIUM (test code = 2228) 4.5 MEQ/L CHLORIDE (test code = 2215) 97 MEQ/L CARBON DIOXIDE (test code = 27 MEQ/L 2205) CALCIUM (test code = 2209) 9.1 MG/DL PROTEIN, TOTAL (test code = 7.7 G/DL 2228) ALBUMIN (test code = 2201) 3.8 G/DL CALC GLOBULIN (test code = 3.9 G/DL 0) CALC A/G RATIO (test code = 1.0 RATIO 2234) BILIRUBIN, TOTAL (test code = 0.4 MG/DL 2206) ALKALINE PHOSPHATASE (test 106 U/L code = 2204) AST (test code = 2218) 44 U/L ALT (test code = 2219) 29 U/L MICROALBUMIN/CREATININE, RANDOM AND [id number] 00:00:00 Test Item Value Reference Range Interpretation Comments CREATININE, URINE, CONC. (test 131.3 MG/DL code = 2071) ALBUMIN, URINE, RANDOM (test code 0.4 MG/DL = 49125) CALC ALBUMIN/CREAT, RND (test 3 MG/G code = 18308) HEMOGLOBIN [id number] 00:00:00 Test Item Value Reference Range Interpretation Comments HEMOGLOBIN A1c (test code = 66100) 8.6 % HEMOGLOBIN [id number] 00:00:00 Test Item Value Reference Range Interpretation Comments HEMOGLOBIN A1c (test code = 22912) 8.6 % LIPID [id number] 00:00:00 Test Item Value Reference Range Interpretation Comments CHOLESTEROL (test code = 2210) 104 MG/DL TRIGLYCERIDES (test code = 2232) 164 MG/DL HDL CHOLESTEROL (test code = 2220) 39 MG/DL CALC LDL CHOL (test code = 2237) 41 MG/DL RISK RATIO LDL/HDL (test code = 1.05 RATIO 2238) COMPREHENSIVE METABOLIC [id number] 00:00:00 Test Item Value Reference Range Interpretation Comments GLUCOSE (test code = 2217) 330 MG/DL BUN (test code = 2208) 11 MG/DL CREATININE (test code = 2214) 0.84 MG/DL eGFR AMER. (test code 87 ML/MIN/1.73 = 65545) eGFR NON- AMER. (test 75 ML/MIN/1.73 code = 11272) CALC BUN/CREAT (test code = 13 RATIO 2235) SODIUM (test code = 2231) 136 MEQ/L POTASSIUM (test code = 2228) 4.5 MEQ/L CHLORIDE (test code = 2215) 97 MEQ/L CARBON DIOXIDE (test code = 27 MEQ/L 2205) CALCIUM (test code = 2209) 9.1 MG/DL PROTEIN, TOTAL (test code = 7.7 G/DL 2228) ALBUMIN (test code = 220) 3.8 G/DL CALC GLOBULIN (test code = 3.9 G/DL 2239) CALC A/G RATIO (test code = 1.0 RATIO 2234) BILIRUBIN, TOTAL (test code = 0.4 MG/DL 2206) ALKALINE PHOSPHATASE (test 106 U/L code = 2204) AST (test code = 2218) 44 U/L ALT (test code = 2219) 29 U/L MICROALBUMIN/CREATININE, RANDOM AND [id number] 00:00:00 Test Item Value Reference Range Interpretation Comments CREATININE, URINE, CONC. (test 131.3 MG/DL code = 2072) ALBUMIN, URINE, RANDOM (test code 0.4 MG/DL = 18963) CALC ALBUMIN/CREAT, RND (test 3 MG/G code = 05970)
--- NOTE | 2021-11-14 19:23 | RAD REPORT ---
EXAM DESCRIPTION: CT - Head Brain Wo Cont - 11/14/2021 7:14 pm CLINICAL HISTORY: mastoiditis Headache, drowsiness, ear pain COMPARISON: No comparisons TECHNIQUE: All CT scans are performed using dose optimization technique as appropriate and may inclu de automated exposure control or mA/KV adjustment according to patient size. FINDINGS: No intracranial hemorrhage, hydrocephalus or extra-axial fluid collection.No areas of brai n edema or evidence of midline shift. The paranasal sinuses and mastoids are clear. The calvarium is intact. IMPRESSION: No acute intracranial abnormality.
--- NOTE | 2021-11-14 19:38 | EDPHYS ---
Physician Documentation [facility] Name: Sita Delgado Age: 61 yrs Sex: Female : 1960 Arrival Date: 11/14/2021 Time: 17:46 Bed 25 Private MD: ED Physician Ollie Cutler HPI: 11/14 19:13 This 61 yrs old Female presents to ER via Ambulatory with complaints of Ear snw Pain. 19:13 The patient presents with a fullness, pain, swelling, tenderness. The complaints affect snw the right ear. Onset: The symptoms/episode began/occurred gradually, 3 day(s) ago, and became worse today. Associated signs and symptoms: Pertinent positives: lightheadedness. Severity of symptoms: At their worst the symptoms were moderate severe. The patient has not experienced similar symptoms in the past. The patient has not recently seen a physician, sees someone at [facility]. Historical: - Allergies: 18:01 Darvocet-N 100; bm7 18:01 Nubain; bm7 18:01 PENICILLINS; bm7 - PMHx: 18:01 chronic back pain; diabetes mellitus; Thyroid problem; Hypertensive disorder; bm7 - PSHx: 18:01 Appendectomy; vic knee reconstructive sx; Cholecystectomy; carpal tunnel repair; bm7 hysterectomy; - Immunization history:: Adult Immunizations up to date, Client reports receiving the 2nd dose of the Covid vaccine, Client reports receiving the 1st dose of the Covid vaccine. - Social history:: Smoking status: Patient/guardian denies using tobacco products. ROS: 19:12 Constitutional: Negative for fever, chills, and weight loss, Eyes: Negative for injury, snw pain, redness, and discharge, Neck: Negative for injury, pain, and swelling, Cardiovascular: Negative for chest pain, palpitations, and edema, Respiratory: Negative for shortness of breath, cough, wheezing, and pleuritic chest pain, Abdomen/GI: Negative for abdominal pain, nausea, vomiting, diarrhea, and constipation, Back: Negative for injury and pain, : Negative for injury, bleeding, discharge, and swelling, MS/Extremity: Negative for injury and deformity, Skin: Negative for injury, rash, and discoloration, Neuro: Negative for headache, weakness, numbness, tingling, and seizure, Psych: Negative for depression, anxiety, suicide ideation, homicidal ideation, and hallucinations. 19:12 Constitutional: Positive for 19:12 ENT: Positive for ear pain. Exam: 19:10 Constitutional: This is a well developed, well nourished patient who is awake, alert, snw and in no acute distress. Head/Face: Normocephalic, atraumatic. Eyes: Pupils equal round and reactive to light, extra-ocular motions intact. Lids and lashes normal. Conjunctiva and sclera are non-icteric and not injected. Cornea within normal limits. Periorbital areas with no swelling, redness, or edema. Neck: Trachea midline, no thyromegaly or masses palpated, and no cervical lymphadenopathy. Supple, full range of motion without nuchal rigidity, or vertebral point tenderness. No Meningismus. Chest/axilla: Normal chest wall appearance and motion. Nontender with no deformity. No lesions are appreciated. Cardiovascular: Regular rate and rhythm with a normal S1 and S2. No gallops, murmurs, or rubs. Normal PMI, no JVD. No pulse deficits. Respiratory: Lungs have equal breath sounds bilaterally, clear to auscultation and percussion. No rales, rhonchi or wheezes noted. No increased work of breathing, no retractions or nasal flaring. Abdomen/GI: Soft, non-tender, with normal bowel sounds. No distension or tympany. No guarding or rebound. No evidence of tenderness throughout. Back: No spinal tenderness. No costovertebral tenderness. Full range of motion. Skin: Warm, dry with normal turgor. Normal color with no rashes, no lesions, and no evidence of cellulitis. MS/ Extremity: Pulses equal, no cyanosis. Neurovascular intact. Full, normal range of motion. Neuro: Awake and alert, GCS 15, oriented to person, place, time, and situation. Cranial nerves II-XII grossly intact. Motor strength 5/5 in all extremities. Sensory grossly intact. Cerebellar exam normal. Normal gait. Psych: Awake, alert, with orientation to person, place and time. Behavior, mood, and affect are within normal limits. 19:10 ENT: External ear(s): are unremarkable, Ear canal(s): swelling, that is minimal, TM's: severe tenderness, Nose: is normal, Mouth: is normal, Posterior pharynx: is normal, Dental exam: normal, +mastoid tenderness, +significant pain. Vital Signs: 17:59 BP 129 / 52; Pulse 72; Resp 16; Temp 97.7(TE); Pulse Ox 100% on R/A; Weight 87.54 kg bm7 (R); Height 5 ft. 2 in. (157.48 cm); Pain 7/10; 17:59 Body Mass Index 35.30 (87.54 kg, 157.48 cm) bm7 MDM: 18:47 Patient medically screened. snw 20:01 Data reviewed: vital signs, nurses notes. Data interpreted: Pulse oximetry: on room air snw is 100 %. Interpretation: normal. Counseling: I had a detailed discussion with the patient and/or guardian regarding: the historical points, exam findings, and any diagnostic results supporting the discharge/admit diagnosis, radiology results, to return to the emergency department if symptoms worsen or persist or if there are any questions or concerns that arise at home. Special discussion: Based on the history and exam findings, there is no indication for further emergent testing or inpatient evaluation. I discussed with the patient/guardian the need to see the ENT specialist for further evaluation of the symptoms. I discussed with the patient/guardian the need to see the primary care provider for further evaluation of the symptoms. 11/14 18:49 Order name: Blood Culture Adult (2) snw 08 18:49 Order name: CBC with Diff; Complete Time: 20:08 snw 11/14 18:49 Order name: CT Head Brain wo Cont snw 11/14 18:49 Order name: CMP; Complete Time: 20:14 snw 11/14 18:54 Order name: Head Brain Wo Cont; Complete Time: 19:33 EDMS 11/14 18:49 Order name: SL; Complete Time: 19:56 snw Administered Medications: 19:50 CANCELLED (Duplicate Order): Clindamycin 300 mg IVPB once over 30 mins; (mix in 50 mL) snw 20:01 CANCELLED (Duplicate Order): Clindamycin 600 mg IM once snw 20:10 Drug: Dilaudid (HYDROmorphone) 1 mg Route: IM; Site: Other; hb 20:10 Drug: Clindamycin 300 mg Route: IVPB; Infused Over: 30 mins; Site: right antecubital; hb Disposition: 21:17 Co-signature as Attending Physician, Ollie Cutler DO I was immediately available on-site ms3 in the Emergency Department for consultation in the care of the patient. . Disposition Summary: 11/14/21 19:37 Discharge Ordered Location: Home snw Condition: Stable snw Diagnosis - Acute suppurative otitis media without spontaneous rupture of ear drum, right ear snw - Otitis externa in other diseases classified elsewhere, right ear snw - Other specified diabetes mellitus without complications snw Followup: snw - With: Emergency Department - When: As needed - Reason: Worsening of condition Followup: snw - With: Private Physician - When: 2 - 3 days - Reason: Recheck today's complaints, Continuance of care, Re-evaluation by your physician Discharge Instructions: - Discharge Summary Sheet snw - Ear Drops, Adult snw - Otitis Media, Adult snw - Otitis Externa snw Forms: - Medication Reconciliation Form snw - Thank You Letter snw - Antibiotic Education snw - Prescription Opioid Use snw Prescriptions: - Clindamycin HCl 300 mg Oral Capsule - take 1 capsule by ORAL route every 8 hours for 10 days; 30 capsule; Refills: 0, snw Product Selection Permitted - Tylenol-Codeine #3 300 mg-30 mg Oral - take 1 tablet by ORAL route 3 times per day; 12 tablet; Refills: 0, Product snw Selection Permitted Signatures: Dispatcher [employer] EDNJ Dorcas Mccord FNP-C MATERIALS INTERN-Csnw Donna Santos RN RN Ollie Cutler DO DO ms3 Martina Carlin RN RN bm7 Corrections: (The following items were deleted from the chart) 19:50 18:49 Clindamycin 300 mg IVPB once over 30 mins; (mix in 50 mL) ordered. snw snw 19:50 19:50 Clindamycin 300 mg IVPB once over 30 mins; (mix in 50 mL) ordered. snw snw 20:01 19:50 Clindamycin 600 mg IM once ordered. snw snw
--- NOTE | 2021-11-14 19:38 | ER ---
Nurse's Notes [facility] Name: Sita Delgado Age: 61 yrs Sex: Female : 1960 Arrival Date: 11/14/2021 Time: 17:46 Bed 25 Private MD: Diagnosis: Acute suppurative otitis media without spontaneous rupture of ear drum, right ear;Otitis externa in other diseases classified elsewhere, right ear;Other specified diabetes mellitus without complications Presentation: 11/14 17:59 Chief complaint: Patient states: I started having an earache three days ago and it bm7 keeps getting worse. Coronavirus screen: At this time, the client does not indicate any symptoms associated with coronavirus-19. Ebola Screen: No symptoms or risks identified at this time. Initial Sepsis Screen: Does the patient meet any 2 criteria? No. Patient's initial sepsis screen is negative. Does the patient have a suspected source of infection? No. Patient's initial sepsis screen is negative. Risk Assessment: Do you want to hurt yourself or someone else? Patient reports no desire to harm self or others. Onset of symptoms was December 12, 2021. 17:59 Method Of Arrival: Ambulatory 7 17:59 Acuity: KATARINA 4 bm7 Triage Assessment: 18:01 General: Appears in no apparent distress. uncomfortable, Behavior is calm, cooperative, bm7 appropriate for age. Pain: Complains of pain in right ear Pain does not radiate. Pain currently is 8 out of 10 on a pain scale. Quality of pain is described as throbbing, Pain began 2-3 days ago. EENT: Pinna with no deformity noted on right ear Reports pain in right ear. Neuro: No deficits noted. Cardiovascular: No deficits noted. Respiratory: No deficits noted. GI: No deficits noted. No signs and/or symptoms were reported involving the gastrointestinal system. : No deficits noted. No signs and/or symptoms were reported regarding the genitourinary system. Derm: No deficits noted. No signs and/or symptoms reported regarding the dermatologic system. Musculoskeletal: No deficits noted. No signs and/or symptoms reported regarding the musculoskeletal system. Historical: - Allergies: 18:01 Darvocet-N 100; bm7 18:01 Nubain; bm7 18:01 PENICILLINS; bm7 - PMHx: 18:01 chronic back pain; diabetes mellitus; Thyroid problem; Hypertensive disorder; bm7 - PSHx: 18:01 Appendectomy; vic knee reconstructive sx; Cholecystectomy; carpal tunnel repair; bm7 hysterectomy; - Immunization history:: Adult Immunizations up to date, Client reports receiving the 2nd dose of the Covid vaccine, Client reports receiving the 1st dose of the Covid vaccine. - Social history:: Smoking status: Patient/guardian denies using tobacco products. Screenin:45 Abuse screen: Denies threats or abuse. Denies injuries from another. Nutritional hb screening: No deficits noted. Tuberculosis screening: No symptoms or risk factors identified. Fall Risk None identified. Assessment: 19:45 General: Appears in no apparent distress. Behavior is calm, cooperative. hb 19:45 Pain: Pain currently is 8 out of 10 on a pain scale. Neuro: Level of Consciousness is hb awake, alert, obeys commands, Oriented to person, place, time, situation. Cardiovascular: Patient's skin is warm and dry. Respiratory: Respiratory effort is even, unlabored, Respiratory pattern is regular, symmetrical. GI: No signs and/or symptoms were reported involving the gastrointestinal system. : No signs and/or symptoms were reported regarding the genitourinary system. EENT: Reports severe rt ear pain. Derm: Skin is pink, warm \T\ dry. Vital Signs: 17:59 BP 129 / 52; Pulse 72; Resp 16; Temp 97.7(TE); Pulse Ox 100% on R/A; Weight 87.54 kg bm7 (R); Height 5 ft. 2 in. (157.48 cm); Pain 7/10; 17:59 Body Mass Index 35.30 (87.54 kg, 157.48 cm) bm7 ED Course: 17:46 Patient arrived in ED. ja2 18:01 Triage completed. bm7 18:01 Arm band placed on right wrist. bm7 18:12 Dorcas Mccord FNP-C is PHCP. snw 18:12 Ollie Cutler DO is Attending Physician. snw 19:16 Head Brain Wo Cont In Process Unspecified. EDMS 19:30 Inserted saline lock: 20 gauge in right antecubital area, using aseptic technique. aa9 Blood collected. 19:36 Donna Santos, RN is Primary Nurse. hb 19:45 Patient has correct armband on for positive identification. hb 19:56 Blood Culture Adult (2) Sent. aa9 19:56 CMP Sent. aa9 19:56 CBC with Diff Sent. aa9 20:46 No provider procedures requiring assistance completed. IV discontinued, intact, hb bleeding controlled, No redness/swelling at site. Administered Medications: 19:50 CANCELLED (Duplicate Order): Clindamycin 300 mg IVPB once over 30 mins; (mix in 50 mL) snw 20:01 CANCELLED (Duplicate Order): Clindamycin 600 mg IM once snw 20:10 Drug: Dilaudid (HYDROmorphone) 1 mg Route: IM; Site: Other; hb 20:10 Drug: Clindamycin 300 mg Route: IVPB; Infused Over: 30 mins; Site: right antecubital; hb Medication: 19:45 VIS not applicable for this client. hb Outcome: 19:37 Discharge ordered by MD. snw 20:46 Discharged to home ambulatory, with significant other. hb 20:46 Condition: stable 20:46 Discharge instructions given to patient, Instructed on discharge instructions, follow up and referral plans. medication usage, Demonstrated understanding of instructions, follow-up care, medications, Prescriptions given X 2. 20:46 Patient left the ED. hb Signatures: Dispatcher [employer] EDMS Dorcas Mccord, COMPLETION MANAGER-C COMPLETION MANAGER-Csnw Donna Santos, ANGELIC RN Martina Carlin, RN RN bm7 Mary Fatima Aylin RN RN aa9
[2021-11-14 19:57] LABS: Hematocrit 29.8 % (36.0-45.0); Lymphocytes % 27.6 % (15.3-44.8); MCV 85.5 fL (80-100); MPV 7.2 fL (7.6-11.3); RBC Red Blood Cell Count 3.49 M/uL (3.86-4.86)
[2021-11-14] MEDS ORDERED: HYDROMORPHONE HCL 1 MG/ML INJ ONE (20:02)
[2021-11-14] MEDS ORDERED: DOXYCYCLINE 100 MG CAP PO ONE (20:03)
[2021-11-14] MEDS ORDERED: CLINDAMYCIN 600MG/D5W 600 MG/50 ML BAG IV ONE (20:07)
[2021-11-14 20:12] LABS: Albumin 3.4 g/dL (3.4-5.0); Bilirubin Total 0.2 mg/dL (0.2-1.0); Potassium 4.6 mmol/L (3.5-5.1); Protein, Total 7.9 g/dL (6.4-8.2)
[2021-11-14 23:23] VITALS: BP 129/52; TEMP 97.7; O2SAT 100
== END 2021-11-14 20:46 | disposition home or self-care (01) ==
LOC: ER 17:43
DX: H66.001 Acute suppurative otitis media without spontaneous rupture of ear drum, right ear (principal); H60.8X1 Other otitis externa, right ear; E13.9 Other specified diabetes mellitus without complications; I10 Essential (primary) hypertension; Z88.0 Allergy status to penicillin; Z88.5 Allergy status to narcotic agent
CPT/HCPCS: 87040; 85025; 36415; 80053; 70450; 96372; 96374; 99284; J1170

== ENCOUNTER 2021-11-17 13:55 | Emergency (ER) | payer OTHER ==
--- OUTSIDE RECORDS SUMMARY | 2021-11-17 14:00 | XMS REPORT | Continuity of Care Document ---
:1960 Author Organization [facility] t Address [address] [place] [address] Care Team Providers Name Role Phone PCP, PATIENT DOES NOT HAVE A Primary Care Physician Unavaila JULIA Spaulding Attending Clinician Unavailable OYVANA ROD Attending Clinician Unavailable Yovana Rod DO Attending Clinician JULIA BUTTERFIELD Attending Clinician Unavailable YOVANA ROD Admitting Clinician Unavailable Payers Payer Name Policy Type Policy Number Effective Date Expiration Date S [id number]00 [facility] [id number] 2021 MEDICARE GOLD PPO 00:00:00 CSNP Problems [...] Active [facility] [place] [facility] Social History Social Habit Start Date Stop Date Quantity Comments Source Exposure to 2021-10-08 2021-10-18 Not sure [facility] SARS-CoV-2 (event) 00:00:00 23:14:00 Medica l Branch Sex Assigned At [birth year] [facility] 00:00:00 00:00:00 Medical Branch Smoking Status Start Date Stop Date Source Tobacco smoking consumption [facility] Medical unknown Branch Medications Ordered Filled [...] HOURS 00 NEEDED TAKE 1 2-0 No [id number] TABLET 10-09 TWICE 00:00: DAILY. 00 &lt [...] 08:10:00 123 mm[Hg] Univer sity of pressure [facility] Diastolic blood 2021-10-19 08:10:00 87 mm[Hg] Unive rsity [facility] Heart rate 2021-10-19 08:10:00 82 /[facility] Respiratory rate 2021-10-19 08:10:00 18 /min [facility] O[facility] saturation in 2021-10-19 08:10:00 98 /min [facility] blood by [facility] Pulse oximetry Branch Body temperature 2021-10-19 04:15:00 36.83 [facility] Body height 2021-10-19 04:15:00 157.5 cm [facility] Body weight 2021-10-19 04:15:00 88.905 kg [facility] BMI 2021-10-19 04:15:00 35.85 kg/m2 [facility] BP Systolic 2021-10-24 11:31:00 110 mm[Hg] [...] 3 VW LEFT 2021-10-19 04:42:39 Yovana Rod [facility] NOTICE OF PRIVACY 2021-10-19 04:04:38 Doctor Unassigned, No [facility] [place] [facility] Name [facility] CONSENT/REFUSAL FOR 2021-10-19 04:04:16 Doctor Unassigned, No [facility] [place] DIAGNOSIS AND Name Medical Branch TREATMENT Plan of Care Planned Activity Planned Date Details Comments Source Goal Plan of Care Note [code = 27426-5] Goal Plan of Care Note [code = 25759-1] Goal Plan of Care Note [code = 79023-3] Goal Plan of Care Note [code = 39850-5] Goal Plan of Care Note [code = 50749-4] Goal Plan of Care Note [code = 97378-3] Goal Plan of Care Note [code = 60414-3] Goal Plan of Care Note [code = 28071-2] Goal Plan of Care Note [code = 18420-3] Goal Plan of Care Note [code = 59070-6] Goal Plan of Care Note [code = 04214-8] Goal Plan of Care Note [code = 68840-5] Goal Plan of Care Note [code = 33820-6] Goal Plan of Care Note [code = 65609-5] Goal Plan of Care Note [code = 64380-9] Goal Plan of Care Note [code = 29275-2] Goal Plan of Care Note [code = 46325-5] Goal Plan of Care Note [code = 57456-3] Goal Plan of Care Note [code = 04709-7] Goal Plan of Care Note [code = 38205-2] Goal Plan of Care Note [code = 86005-6] Goal Plan of Care Note [code = 39068-0] Goal Plan of Care Note [code = 84653-0] Goal Plan of Care Note [code = 94194-6] Goal Plan of Care Note [code = 80497-3] Goal Plan of Care Note [code = 99155-1] Goal Plan of Care Note [code = 87892-5] Goal Plan of Care Note [code = 72383-3] Goal Plan of Care Note [code = 18282-8] Goal Plan of Care Note [code = 86969-7] Goal Plan of Care Note [code = 43430-9] Goal Plan of Care Note [code = 53097-9] Goal Plan of Care Note [code = 36668-2] Goal Plan of Care Note [code = 60315-8] Goal Plan of Care Note [code = 00506-5] Goal Plan of Care Note [code = 31526-9] Goal Plan of Care Note [code = 83323-7] Goal Plan of Care Note [code = 50120-6] Goal Plan of Care Note [code = 22800-7] Goal Plan of Care Note [code = 19966-0] Goal Plan of Care Note [code = 92252-1] Goal Plan of Care Note [code = 09404-2] Goal Plan of Care Note [code = 33729-7] Goal Plan of Care Note [code = 94651-2] Goal Plan of Care Note [code = 52202-9] Goal Plan of Care Note [code = 02644-6] Goal Plan of Care Note [code = 72165-3] Goal Plan of Care Note [code = 92669-5] Goal Plan of Care Note [code = 29411-2] Goal Plan of Care Note [code = 56231-3] Goal Plan of Care Note [code = 07305-0] Goal Plan of Care Note [code = 96575-6] Goal Plan of Care Note [code = 28245-0] Goal Plan of Care Note [code = 63019-0] Encounters Start End Encounter Admission Attending Care Care Encounter Source Date/Time Date/Time Type Type Clinicians Facility Department ID 2021-09-19 Outpatient [facility]OUT [facility] [id number] [place] 01:03:24 [facility] [id number] [facility] 2021-10-24 2021-10-24 Outpatient [id number] it27b9-3 00:00:00 00:00:00 Visit 422b-482d 22b-482d-8 -8157-b70 [id number]-[id number] 0f6bdd 2021-10-18 2021-10-19 Emergency X OLYA ROD ERT [id number] Univers 23:20:00 03:26:[address] [facility] [place] [place] 2021-10-18 2021-10-19 Emergency OLYA Rod [id number] Univers 23:20:00 03:26:00 Yovana [place] [id number] i [facility] [id number] [facility] [id number] [facility] 084 Branch 2021-09-30 2021-09-30 Outpatient [id number]- [id number] [id number] 00:00:00 00:00:00 Visit 4h7y-6jaj q3f-5buc-p -t1b0-rdy 5k2-dhxg30 [id number] 2021-06-20 2021-06-20 Outpatient SCOUT, [facility] [address] [facility] 12:04:00 23:59:00 JULIA Results Test Description Test Time Test Comments Results Result Comments Source CULTURE, URINE 2021-10-03 SPECIMEN NUMBER: 12:01:26 [id number] CULTURE, URINE SPECIMEN NUMBER: [id number] SPECIMEN COMMENT: URINE SOURCE: URINE REPORT STATUS: FINAL FINAL REPORT: 10/03/2021 10-50,000 CFU/ML MIXED UROGENITAL SOBEIDA UNLESS OTHERWISE INDICATED, ALL TESTING PERFORMED [employer] [address] [place] [address] ENERGY AUDITOR: LILLI VELAZQUEZ M.D. CLIA NUMBER [id number] [place]. [id number] CULTURE, URINE 2021-10-03 00:00:00 Test Item Value Reference Range Interpretation Comme nts CULTURE, URINE (test code = 97757) SPECIMEN NUMBER: [id number] TSH, THIRD [id number] 06:16:09 Test Item Value Reference Range Interpretation Comments TSH, THIRD <0.010 UIU/ML 0.400-4.100 L UNLESS OTHERW ISE GENERATION (test INDICATED, ALL code = 2821) TESTING PERFORM ED ATCLINICAL PATH [employer] Copyright Agent, I [address] [address] [facility] DIRECTOR: LILLI VELAZQUEZ M.D. CLIA NUMBER [id number] CAP ACCREDITATION N O. [id number] HEMOGLOBIN [id number] 05:23:24 Test Item Value Reference Range Interpretation Comments HEMOGLOBIN A1c (test 6.7 % 4.2-5.6 H AMERIC AN DIABETES code = 25986) ASSOCIATION IDELINES FOR HGB A1C: PREDIABETES/INC REASED [...] TESTING OR LABORATORY C ONSULTATION. COMPREHENSIVE METABOLIC [id number] 04:45:06 Test Item Value Reference Range Interpretation Comments GLUCOSE (test code = 266 MG/DL 70-99 H 2216) BUN (test code = 17 MG/DL 8-23 2207) CREATININE (test 0.92 MG/DL 0.60-1.30 code = 221) eGFR (2020 CKD-EPI) 70 ML/MIN/1.73 >60 (test code = 68038) CALC BUN/CREAT (test 18 RATIO 6-28 code = 2235) SODIUM (test code = 136 MEQ/L 590-904 8521) POTASSIUM (test code 5.3 MEQ/L 3.5-5.4 = [...] code = 29 U/L 5-40 2218) HEMOGLOBIN [id number] 00:00:00 Test Item Value Reference Range Interpretation Comments HEMOGLOBIN A1c (test code = 23483) 6.7 % HEMOGLOBIN [id number] 00:00:00 Test Item Value Reference Range Interpretation Comments HEMOGLOBIN A1c (test code = 71922) 6.7 % COMPREHENSIVE METABOLIC [id number] 00:00:00 Test Item Value Reference Range Interpretation Comments GLUCOSE (test code = 2217) 266 MG/DL BUN (test code = 2208) 17 MG/DL CREATININE (test code = 2214) 0.92 MG/DL eGFR (2020 CKD-EPI) (test code 70 ML/MIN/1.73 = 36965) CALC BUN/CREAT (test code = 18 RATIO [...] ALT (test code = 2219) 29 U/L [id number] 00:00:00 Test Item Value Reference Range Interpretation Comments TSH, THIRD GENERATION (test <0.010 UIU/ML code = 2821) [id number] 00:00:00 Test Item Value Reference Range Interpretation Comments TSH, THIRD GENERATION (test <0.010 UIU/ML code = 2821) TSH, THIRD [id number] 06:18:54 Test Item Value Reference Range Interpretation Comments TSH, THIRD GENERATION (test code 0.190 UIU/ML 0.400-4.100 L = 2821) HEMOGLOBIN [id number] 03:11:56 Test Item Value Reference Range Interpretation Comments HEMOGLOBIN A1c (test 8.4 % 4.2-5.6 H AMERIC AN DIABETES code = 98837) ASSOCIATION IDELINES FOR HGB A1C: PREDIABETES/INC REASED [...] TESTING OR LABORATORY C ONSULTATION. COMPREHENSIVE METABOLIC [id number] 03:11:06 Test Item Value Reference Range Interpretation Comments GLUCOSE (test code = 141 MG/DL 70-99 H 2216) BUN (test code = 31 MG/DL 8-23 H 2207) CREATININE (test 1.07 MG/DL 0.60-1.30 code = 221) eGFR (2020 CKD-EPI) 59 ML/MIN/1.73 >60 L (test code = 39909) CALC BUN/CREAT (test 29 RATIO 6-28 H code = 2235) SODIUM (test code = 141 MEQ/L 051-132 0093) POTASSIUM (test code 4.7 MEQ/L 3.5-5.4 = [...] = 41 U/L 5-40 H 2218) LIPID [id number] 03:11:06 Test Item Value Reference Range Interpretation [...] MOREINFORMATION , SEE CLIENT ANNOUNCE MENT AT [email or web address] RISK RATIO LDL/HDL 1.28 RATIO <3.22 (test code = 2238) IRON, [id number] 03:11:06 Test Item Value Reference Range Interpretation Comments IRON, SERUM (test 59 UG/DL 37-145 UNLESS OT HERWISE code = 2222) INDICATED, ALL TESTING PERFORMED ATCLI NICAL PATHOLOGY [facility] [address] [place], [place] [address] [place] [address] DIRECTOR: LILLI VELAZQUEZ M.D. CLIA NUMBER [id number] CAP ACCREDITATION N O. [id number] HEMOGLOBIN [id number] 00:00:00 Test Item Value Reference Range Interpretation Comments HEMOGLOBIN A1c (test code = 37525) 8.4 % HEMOGLOBIN [id number] 00:00:00 Test Item Value Reference Range Interpretation Comments HEMOGLOBIN A1c (test code = 31120) 8.4 % COMPREHENSIVE METABOLIC [id number] 00:00:00 Test Item Value Reference Range Interpretation Comments GLUCOSE (test code = 2217) 141 MG/DL BUN (test code = 2208) 31 MG/DL CREATININE (test code = 2214) 1.07 MG/DL eGFR (2020 CKD-EPI) (test code 59 ML/MIN/1.73 = 54526) CALC BUN/CREAT (test code = 29 RATIO [...] (test code = 2219) 41 U/L LIPID [id number] 00:00:00 Test Item Value Reference Range Interpretation Comments CHOLESTEROL (test code = 2210) 113 MG/DL TRIGLYCERIDES (test code = 2232) 165 MG/DL HDL CHOLESTEROL (test code = 0) 39 MG/DL CALC LDL CHOL (test code = 2236) 50 MG/DL RISK RATIO LDL/HDL (test code = 1.28 RATIO 2238) [id number] 00:00:00 Test Item Value Reference Range Interpretation Comments TSH, THIRD GENERATION (test code 0.190 UIU/ML = 2821) [id number] 00:00:00 Test Item Value Reference Range Interpretation Comments TSH, THIRD GENERATION (test code 0.190 UIU/ML = 2821) IRON, [id number] 00:00:00 Test Item Value Reference Range Interpretation Comments IRON, SERUM (test code = 2221) 59 UG/DL HEMOGLOBIN [id number] 00:00:00 Test Item Value Reference Range Interpretation Comments HEMOGLOBIN A1c (test code = 88213) 8.4 % HEMOGLOBIN [id number] 00:00:00 Test Item Value Reference Range Interpretation Comments HEMOGLOBIN A1c (test code = 41770) 8.4 % COMPREHENSIVE METABOLIC [id number] 00:00:00 Test Item Value Reference Range Interpretation Comments GLUCOSE (test code = 2217) 141 MG/DL BUN (test code = 8) 31 MG/DL CREATININE (test code = 2214) 1.07 MG/DL eGFR (2020 CKD-EPI) (test code 59 ML/MIN/1.73 = 56146) CALC BUN/CREAT (test code = 29 RATIO [...] (test code = 2219) 41 U/L LIPID [id number] 00:00:00 Test Item Value Reference Range Interpretation Comments CHOLESTEROL (test code = 2210) 113 MG/DL TRIGLYCERIDES (test code = 2232) 165 MG/DL HDL CHOLESTEROL (test code = 2220) 39 MG/DL CALC LDL CHOL (test code = 2237) 50 MG/DL RISK RATIO LDL/HDL (test code = 1.28 RATIO 2238) [id number] 00:00:00 Test Item Value Reference Range Interpretation Comments TSH, THIRD GENERATION (test code 0.190 UIU/ML = 2821) [id number] 00:00:00 Test Item Value Reference Range Interpretation Comments TSH, THIRD GENERATION (test code 0.190 UIU/ML = 2821) IRON, [id number] 00:00:00 Test Item Value Reference Range Interpretation Comments IRON, SERUM (test code = 2222) 59 UG/DL ALBUMIN/CREATININE RATIO, URINE, [id number] 05:57:19 Test Item Value Reference Range Interpretation Comments CREATININE, URINE, 212.0 MG/DL NOT ESTAB CONC. (test code = 2071) ALBUMIN, URINE, 16.0 MG/DL Note: Test name is RANDOM (test code changed to Urine Albumin = 67108) from [employer] in in accordance with ADA and NKF Guidelines, and Albumin/Creatin ine ratio reference inter jamshid reflects those Guidelines. Jameel lytic methodology is unchanged. No r eference interval for Ra ndom Urine Albumin i s available. CALC 75 MG/G <30 H UNLESS OTHERWI SE ALBUMIN/CREAT, RND INDICATED , ALL TESTING (test code = PERFORMED ATCLI NICAL 66189) PATHOLOGY [facility] [employer], [facility]. [address] [place] [address] 4 LABORATORY DIRE CTOR: LILLI SIERRA M.D. CLIA NUMBER [id number] [place] [id number] HEMOGLOBIN [id number] 04:12:15 Test Item Value Reference Range Interpretation Comments HEMOGLOBIN A1c (test 9.1 % 4.2-5.6 H AMERIC AN DIABETES code = 47862) ASSOCIATION IDELINES FOR HGB A1C: PREDIABETES/INC REASED [...] ATE TESTING OR LABORATORY C ONSULTATION. HEMOGLOBIN [id number] 00:00:00 Test Item Value Reference Range Interpretation Comments HEMOGLOBIN A1c (test code = 21663) 9.1 % HEMOGLOBIN [id number] 00:00:00 Test Item Value Reference Range Interpretation Comments HEMOGLOBIN A1c (test code = 20050) 9.1 % MICROALBUMIN/CREATININE, RANDOM AND [id number] 00:00:00 Test Item Value Reference Range Interpretation Comments CREATININE, URINE, CONC. (test 212.0 MG/DL code = 2072) ALBUMIN, URINE, RANDOM (test code 16.0 MG/DL = 32575) CALC ALBUMIN/CREAT, RND (test 75 MG/G code = 95359) HEMOGLOBIN [id number] 00:00:00 Test Item Value Reference Range Interpretation Comments HEMOGLOBIN A1c (test code = 04431) 9.1 % HEMOGLOBIN [id number] 00:00:00 Test Item Value Reference Range Interpretation Comments HEMOGLOBIN A1c (test code = 65376) 9.1 % MICROALBUMIN/CREATININE, RANDOM AND [id number] 00:00:00 Test Item Value Reference Range Interpretation Comments CREATININE, URINE, CONC. (test 212.0 MG/DL code = 2072) ALBUMIN, URINE, RANDOM (test code 16.0 MG/DL = 95444) CALC ALBUMIN/CREAT, RND (test 75 MG/G code = 59890) PATHOLOGIST SMEAR [id number] 00:00:00 Test Item Value Reference Range Interpretation Comments DIAGNOSIS: (test code = 8200) (NOTE) COMMENTS: (test code = 8205) (NOTE) MICROSCOPIC DESCRIPTION: (test (NOTE) code = 8210) PATHOLOGIST: (test code = 8250) (NOTE) CPT: (test code = 8400) 16442 WBC (test code = 1001) 2.7 K/UL [...] NUCLEATED RBCS (test code = 0.00 K/UL 51164) COMMENTS (test code = 1016) (NOTE) PATHOLOGIST SMEAR [id number] 00:00:00 Test Item Value Reference Range Interpretation Comments DIAGNOSIS: (test code = 8200) (NOTE) COMMENTS: (test code = 8205) (NOTE) MICROSCOPIC DESCRIPTION: (test (NOTE) code = 8210) PATHOLOGIST: (test code = 8250) (NOTE) CPT: (test code = 8400) 21331 WBC (test code = 1001) 2.7 K/UL [...] NUCLEATED RBCS (test code = 0.00 K/UL 36059) COMMENTS (test code = 1016) (NOTE) [id number] 00:00:00 Test Item Value Reference Range Interpretation Comments FERRITIN (test code = 5) 42 NG/ML [id number] 00:00:00 Test Item Value Reference Range Interpretation Comments TRANSFERRIN (test code = 4936) 281 MG/DL IRON BINDING CAPACITY AND IRON AND % [id number] 00:00:00 Test Item Value Reference Range Interpretation Comments IRON, SERUM (test code = 2222) 28 UG/DL UNSATURATED IBC (test code = 30126) 315 UG/DL CALC TOTAL IBC (test code = 7) 343 UG/DL CALC % IRON SAT (test code = 2078) 8 % PROTIME AND [id number] 00:00:00 Test Item Value Reference Range Interpretation Comments PROTHROMBIN TIME (PT) (test code 14.8 SECONDS = 1402) INR (test code = 52387) 1.1 PTT (test code = 1403) 35.8 SECONDS RHEUMATOID FACTOR, [id number] 00:00:00 Test Item Value Reference Range Interpretation Comments RHEUMATOID FACTOR, QUANT (test code <10 IU/ML = 3502) RHEUMATOID FACTOR, [id number] 00:00:00 Test Item Value Reference Range Interpretation Comments RHEUMATOID FACTOR, QUANT (test code <10 IU/ML = 3502) CCP [id number] 00:00:00 Test Item Value Reference Range Interpretation Comments CCP IgG (test code = 86240) <0.5 U/ML CCP [id number] 00:00:00 Test Item Value Reference Range Interpretation Comments CCP IgG (test code = 16669) <0.5 U/ML ASH (SM) [id number] 00:00:00 Test Item Value Reference Range Interpretation Comments ASH (Sm) ANTIBODY (test code = <0.2 AI 65312) DNA DS [id number] 00:00:00 Test Item Value Reference Range Interpretation Comments dsDNA ANTIBODY (test code = 4287) 1.0 IU/ML [id number] 00:00:00 Test Item Value Reference Range Interpretation Comments FERRITIN (test code = 2075) 42 NG/ML [id number] 00:00:00 Test Item Value Reference Range Interpretation Comments TRANSFERRIN (test code = 4936) 281 MG/DL IRON BINDING CAPACITY AND IRON AND % [id number] 00:00:00 Test Item Value Reference Range Interpretation Comments IRON, SERUM (test code = 2222) 28 UG/DL UNSATURATED IBC (test code = 66073) 315 UG/DL CALC TOTAL IBC (test code = 7) 343 UG/DL CALC % IRON SAT (test code = 2078) 8 % PROTIME AND [id number] 00:00:00 Test Item Value Reference Range Interpretation Comments PROTHROMBIN TIME (PT) (test code 14.8 SECONDS = 1402) INR (test code = 40987) 1.1 PTT (test code = 1403) 35.8 SECONDS RHEUMATOID FACTOR, [id number] 00:00:00 Test Item Value Reference Range Interpretation Comments RHEUMATOID FACTOR, QUANT (test code <10 IU/ML = 3502) RHEUMATOID FACTOR, [id number] 00:00:00 Test Item Value Reference Range Interpretation Comments RHEUMATOID FACTOR, QUANT (test code <10 IU/ML = 3502) CCP [id number] 00:00:00 Test Item Value Reference Range Interpretation Comments CCP IgG (test code = 95413) <0.5 U/ML CCP [id number] 00:00:00 Test Item Value Reference Range Interpretation Comments CCP IgG (test code = 88454) <0.5 U/ML ASH (SM) [id number] 00:00:00 Test Item Value Reference Range Interpretation Comments ASH (Sm) ANTIBODY (test code = <0.2 AI 33814) DNA DS [id number] 00:00:00 Test Item Value Reference Range Interpretation Comments dsDNA ANTIBODY (test code = 4287) 1.0 IU/ML CULTURE, [id number] 00:00:00 Test Item Value Reference Range Interpretation Comments CULTURE, URINE (test SPECIMEN NUMBER: code = 04558) [id number] CULTURE, [id number] 00:00:00 Test Item Value Reference Range Interpretation Comments CULTURE, URINE (test SPECIMEN NUMBER: code = 88884) [id number] JAMEEL TITER AND PATTERN [REFLEX][id number] 00:00:00 Test Item Value Reference Range Interpretation Comments PATTERN (test code = SPECKLED 10697) JAMEEL TITER (test code = 1:640 TITER 3550) PATTERN 2 (test code = NOT DETECTED 38359) JAMEEL TITER 2 (test code = NOT DETECTED TITER 60989) PATTERN 3 (test code = NOT DETECTED 69578) JAMEEL TITER 3 (test code = NOT DETECTED TITER 63616) METHOD (test code = 57007) (NOTE) JAMEEL TITER AND PATTERN [REFLEX]2021-01-17 00:00:00 Test Item Value Reference Range Interpretation Comments PATTERN (test code = SPECKLED 12535) JAMEEL TITER (test code = 1:640 TITER 3550) PATTERN 2 (test code = NOT DETECTED 20639) JAMEEL TITER 2 (test code = NOT DETECTED TITER 05593) PATTERN 3 (test code = NOT DETECTED 07613) JAMEEL TITER 3 (test code = NOT DETECTED TITER 89378) METHOD (test code = 19561) (NOTE) CBC W/AUTO [id number] 00:00:00 Test Item Value Reference Range Interpretation [...] NUCLEATED RBCS (test code = 0.00 K/UL 27079) CBC W/AUTO [id number] 00:00:00 Test Item Value Reference Range Interpretation [...] NUCLEATED RBCS (test code = 0.00 K/UL 42956) COMPREHENSIVE METABOLIC [id number] 00:00:00 Test Item Value Reference Range Interpretation Comments GLUCOSE (test code = 2217) 139 MG/DL BUN (test code = 2208) 21 MG/DL CREATININE (test code = 2214) 0.83 MG/DL eGFR AMER. (test code 88 ML/MIN/1.73 = 13407) eGFR NON- AMER. (test 76 ML/MIN/1.73 code = 91399) CALC BUN/CREAT (test code = 25 RATIO [...] ALT (test code = 2219) 23 U/L [id number] 00:00:00 Test Item Value Reference Range Interpretation Comments NT-proBNP (test code = 94942) 247 PG/ML [id number] 00:00:00 Test Item Value Reference Range Interpretation Comments NT-proBNP (test code = 60455) 247 PG/ML JAMEEL (ANTI-NUCLEAR AB) WITH REFLEX [id number] 00:00:00 Test Item Value Reference Range Interpretation Comments ANTI-NUCLEAR ANTIBODIES (test code = POSITIVE 3506) C-REACTIVE [id number] 00:00:00 Test Item Value Reference Range Interpretation Comments C-REACTIVE PROTEIN (test code = 1.1 MG/DL 3513) SEDIMENTATION [id number] 00:00:00 Test Item Value Reference Range Interpretation Comments SEDIMENTATION RATE (test code = 88 MM/HOUR 1017) [id number] 00:00:00 Test Item Value Reference Range Interpretation Comments D-DIMER (test code = 1405) 0.77 UG/MLFEU CBC W/AUTO [id number] 00:00:00 Test Item Value Reference Range Interpretation [...] NUCLEATED RBCS (test code = 0.00 K/UL 10585) CBC W/AUTO [id number] 00:00:00 Test Item Value Reference Range Interpretation [...] NUCLEATED RBCS (test code = 0.00 K/UL 67424) COMPREHENSIVE METABOLIC [id number] 00:00:00 Test Item Value Reference Range Interpretation Comments GLUCOSE (test code = 2217) 139 MG/DL BUN (test code = 2208) 21 MG/DL CREATININE (test code = 2214) 0.83 MG/DL eGFR AMER. (test code 88 ML/MIN/1.73 = 86364) eGFR NON- AMER. (test 76 ML/MIN/1.73 code = 92150) CALC BUN/CREAT (test code = 25 RATIO [...] ALT (test code = 2219) 23 U/L [id number] 00:00:00 Test Item Value Reference Range Interpretation Comments NT-proBNP (test code = 88200) 247 PG/ML [id number] 00:00:00 Test Item Value Reference Range Interpretation Comments NT-proBNP (test code = 50836) 247 PG/ML JAMEEL (ANTI-NUCLEAR AB) WITH REFLEX [id number] 00:00:00 Test Item Value Reference Range Interpretation Comments ANTI-NUCLEAR ANTIBODIES (test code = POSITIVE 3506) C-REACTIVE [id number] 00:00:00 Test Item Value Reference Range Interpretation Comments C-REACTIVE PROTEIN (test code = 1.1 MG/DL 3513) SEDIMENTATION [id number] 00:00:00 Test Item Value Reference Range Interpretation Comments SEDIMENTATION RATE (test code = 88 MM/HOUR 1017) [id number] 00:00:00 Test Item Value Reference Range Interpretation Comments D-DIMER (test code = 1405) 0.77 UG/MLFEU HEMOGLOBIN [id number] 00:00:00 Test Item Value Reference Range Interpretation Comments HEMOGLOBIN A1c (test code = 76796) 7.5 % HEMOGLOBIN [id number] 00:00:00 Test Item Value Reference Range Interpretation Comments HEMOGLOBIN A1c (test code = 24403) 7.5 % HEMOGLOBIN [id number] 00:00:00 Test Item Value Reference Range Interpretation Comments HEMOGLOBIN A1c (test code = 14586) 7.5 % HEMOGLOBIN [id number] 00:00:00 Test Item Value Reference Range Interpretation Comments HEMOGLOBIN A1c (test code = 65460) 7.5 % CULTURE, [id number] 00:00:00 Test Item Value Reference Range Interpretation Comments CULTURE, URINE (test SPECIMEN NUMBER: code = 43619) [id number] CULTURE, [id number] 00:00:00 Test Item Value Reference Range Interpretation Comments CULTURE, URINE (test SPECIMEN NUMBER: code = 83921) [id number] HEMOGLOBIN [id number] 00:00:00 Test Item Value Reference Range Interpretation Comments HEMOGLOBIN A1c (test code = 59796) 8.6 % HEMOGLOBIN [id number] 00:00:00 Test Item Value Reference Range Interpretation Comments HEMOGLOBIN A1c (test code = 81811) 8.6 % LIPID [id number] 00:00:00 Test Item Value Reference Range Interpretation Comments CHOLESTEROL (test code = 2210) 104 MG/DL TRIGLYCERIDES (test code = 2232) 164 MG/DL HDL CHOLESTEROL (test code = 2220) 39 MG/DL CALC LDL CHOL (test code = 2237) 41 MG/DL RISK RATIO LDL/HDL (test code = 1.05 RATIO 2238) COMPREHENSIVE METABOLIC [id number] 00:00:00 Test Item Value Reference Range Interpretation Comments GLUCOSE (test code = 2217) 330 MG/DL BUN (test code = 2208) 11 MG/DL CREATININE (test code = 2214) 0.84 MG/DL eGFR AMER. (test code 87 ML/MIN/1.73 = 03022) eGFR NON- AMER. (test 75 ML/MIN/1.73 code = 03100) CALC BUN/CREAT (test code = 13 RATIO [...] = 2219) 29 U/L MICROALBUMIN/CREATININE, RANDOM AND [id number] 00:00:00 Test Item Value Reference Range Interpretation Comments CREATININE, URINE, CONC. (test 131.3 MG/DL code = 2071) ALBUMIN, URINE, RANDOM (test code 0.4 MG/DL = 80398) CALC ALBUMIN/CREAT, RND (test 3 MG/G code = 02541) HEMOGLOBIN [id number] 00:00:00 Test Item Value Reference Range Interpretation Comments HEMOGLOBIN A1c (test code = 35638) 8.6 % HEMOGLOBIN [id number] 00:00:00 Test Item Value Reference Range Interpretation Comments HEMOGLOBIN A1c (test code = 87089) 8.6 % LIPID [id number] 00:00:00 Test Item Value Reference Range Interpretation Comments CHOLESTEROL (test code = 2210) 104 MG/DL TRIGLYCERIDES (test code = 2232) 164 MG/DL HDL CHOLESTEROL (test code = 2220) 39 MG/DL CALC LDL CHOL (test code = 2237) 41 MG/DL RISK RATIO LDL/HDL (test code = 1.05 RATIO 2238) COMPREHENSIVE METABOLIC [id number] 00:00:00 Test Item Value Reference Range Interpretation Comments GLUCOSE (test code = 2217) 330 MG/DL BUN (test code = 2208) 11 MG/DL CREATININE (test code = 2214) 0.84 MG/DL eGFR AMER. (test code 87 ML/MIN/1.73 = 00190) eGFR NON- AMER. (test 75 ML/MIN/1.73 code = 11667) CALC BUN/CREAT (test code = 13 RATIO [...] = 2219) 29 U/L MICROALBUMIN/CREATININE, RANDOM AND [id number] 00:00:00 Test Item Value Reference Range Interpretation Comments CREATININE, URINE, CONC. (test 131.3 MG/DL code = 2072) ALBUMIN, URINE, RANDOM (test code 0.4 MG/DL = 54348) CALC ALBUMIN/CREAT, RND (test 3 MG/G code = 77687)
[2021-11-17] MEDS ORDERED: MORPHINE 4 MG/ML SYR ONE (15:29)
[2021-11-17] MEDS ORDERED: dexAMETHasone 10 MG/ML VIAL ONE (15:29)
[2021-11-17] MEDS ORDERED: KETOROLAC 30 MG/ML INJ ONE (15:30)
[2021-11-17] MEDS ORDERED: ONDANSETRON 4 MG (ODT) TAB ONE (15:30)
--- NOTE | 2021-11-17 16:06 | RAD REPORT ---
EXAM DESCRIPTION: RAD - Lumbar Spine 3 Views - 11/17/2021 3:42 pm CLINICAL HISTORY: back pain Radiculopathy COMPARISON: No comparisons FINDINGS: Diffuse osteopenia is seen. There is a moderately severe compression fracture affecting L1 vertebral body. Loss of vertebral body height is 70%. Disc thinning is present lower lumbar levels g reatest at L5-S1. No spondylolysis or spondylolisthesis. IMPRESSION: Moderate compression fracture is present affecting the L1 vertebral body.
--- NOTE | 2021-11-17 18:11 | RAD REPORT ---
EXAM DESCRIPTION: CT - Spine Lumbar Wo Con - 11/17/2021 5:51 pm CLINICAL HISTORY: Radiculopathy. Fall, back pain, abnormal plain film COMPARISON: Lumbar Spine 3 Views dated 11/17/2021 TECHNIQUE: Axial noncontrast CT imaging of the lumbar spine was performed with coronal and sagittal re-formatted images. All CT scans are performed using dose optimization technique as appropriate and may include automated exposure control or mA/KV adjustment according to patient size. FINDINGS: There is a compression fracture seen of the L1 vertebral body. Loss of vertebral body heig ht is estimated at 70-80%. There is mild canal narrowing caused by this. General appearance of this f racture is that of an old/chronic injury. Acute fracture currently not suspected. Paraspinal tissues are normal in thickness. No paraspinal abscess or hematoma seen. Lower lumbar degenerative changes are noted with a posterior disc bulge at L5-S1 and moderate facet h ypertrophy. IMPRESSION: Old osteoporotic moderate compression fracture of L1. No acute fracture seen. Moderate lower lumbar degenerative spondylosis.
--- NOTE | 2021-11-17 18:37 | ER ---
Nurse's Notes [facility] Name: Sita Delgado Age: 61 yrs Sex: Female : 1960 Arrival Date: 11/17/2021 Time: 13:58 Bed 24 Private MD: Diagnosis: Other fracture of unspecified lumbar vertebra;Lumbago with sciatica, left side Presentation: 11/17 15:14 Chief complaint: Patient states: left lower back pain radiating down left leg since kb3 this morning. Coronavirus screen: Vaccine status: Patient reports receiving the 2nd dose of the covid vaccine. Client denies travel out of the [place] in the last 14 days. At this time, the client does not indicate any symptoms associated with coronavirus-19. Ebola Screen: Patient negative for fever greater than or equal to 101.5 degrees Fahrenheit, and additional compatible Ebola Virus Disease symptoms Patient denies exposure to infectious person. Patient denies travel to an Ebola-affected area in the 21 days before illness onset. Initial Sepsis Screen: Does the patient meet any 2 criteria? No. Patient's initial sepsis screen is negative. Does the patient have a suspected source of infection? No. Patient's initial sepsis screen is negative. Risk Assessment: Do you want to hurt yourself or someone else? Patient reports no desire to harm self or others. Onset of symptoms was November 17, 2021 at 09:00. 15:14 Method Of Arrival: Wheelchair kb3 15:14 Acuity: KATARINA 4 kb3 Triage Assessment: 15:15 General: Appears in no apparent distress. uncomfortable, Behavior is calm, cooperative. kb3 Pain: Complains of pain in left low back Pain radiates to left leg Pain currently is 10 out of 10 on a pain scale. Quality of pain is described as sharp, shooting, Pain began 3 hours ago. Is continuous. Musculoskeletal: Capillary refill < 3 seconds, Tenderness present in left low back Reports pain in left low back. Historical: - Allergies: 15:15 Darvocet-N 100; kb3 15:15 Nubain; kb3 15:15 PENICILLINS; kb3 - PMHx: 15:15 chronic back pain; diabetes mellitus; Hypertensive disorder; Thyroid problem; kb3 - PSHx: 15:15 Appendectomy; vic knee reconstructive sx; carpal tunnel repair; Cholecystectomy; kb3 hysterectomy; - Immunization history:: Adult Immunizations up to date, Client reports receiving the 2nd dose of the Covid vaccine, Last tetanus immunization: unknown. - Social history:: Smoking status: Patient denies any tobacco usage or history of. Patient/guardian denies using alcohol, street drugs. Screenin:46 Abuse screen: Denies threats or abuse. Denies injuries from another. Nutritional [facility] screening: No deficits noted. Tuberculosis screening: No symptoms or risk factors identified. Fall Risk Gait- Impaired (20 pts.). Assessment: 17:20 General: Appears uncomfortable, Behavior is calm, cooperative. General: pt brought from [facility] lobby and placed in room 24 at this time. . Pain: Complains of pain in coccyx, left lower back and right lower back Pain currently is 6 out of 10 on a pain scale. Quality of pain is described as aching, shooting, Pain began suddenly. Neuro: No deficits noted. Vital Signs: 15:14 Pulse 94; Resp 20; Temp 97.5; Pulse Ox 100% ; Weight 87.54 kg; Height 5 ft. 2 in. kb3 (157.48 cm); Pain 10/10; 15:15 BP 135 / 65; kb3 18:45 BP 126 / 56; Pulse 70; Resp 17; Pulse Ox 100% ; Pain 4/10; jh6 15:14 Body Mass Index 35.30 (87.54 kg, 157.48 cm) kb3 ED Course: 13:58 Patient arrived in ED. rg4 14:54 Schuyler Soliman PA is PHCP. [facility] 14:54 Williams Kenney MD is Attending Physician. m 15:15 Triage completed. kb3 15:15 Arm band placed on right wrist. kb3 15:43 Lumbar Spine (3 Views) XRAY In Process Unspecified. EDMS 17:20 Bed in low position. Call light in reach. Side rails up X 1. Adult w/ patient. 6 17:24 Katie Ferguson, RN is Primary Nurse. jh6 17:46 Patient moved to MA via stretcher. jh6 17:53 Spine Lumbar Wo Con In Process Unspecified. EDMS 18:54 No provider procedures requiring assistance completed. jh6 18:55 Patient did not have IV access during this emergency room visit. jh6 Administered Medications: 15:28 Drug: Ondansetron 4 mg Route: PO; kb3 15:29 Drug: Ketorolac 30 mg Route: IM; Site: right ventrogluteal; kb3 15:29 Drug: Decadron (dexamethasone) 10 mg Route: IM; Site: left deltoid; kb3 15:29 Drug: morphine 4 mg Route: IM; Site: right deltoid; kb3 18:35 Drug: [place] (HYDROcodone-acetaminophen) 10 mg-325 mg 1 tabs Route: PO; 6 18:55 Follow up: Response: No adverse reaction [facility] Medication: 18:55 VIS not applicable for this client. [facility] Outcome: 18:37 Discharge ordered by . rene 18:54 Discharged to home via wheelchair. [facility] 18:54 Condition: stable 18:54 Discharge instructions given to patient, family, Instructed on discharge instructions, follow up and referral plans. Demonstrated understanding of instructions, follow-up care, medications, Prescriptions given X 2. 18:55 Patient left the ED. [facility] Signatures: Dispatcher [employer] EDMS Schuyler Soliman PA PA jmm Garcia, Rubi rg4 Katie Ferguson RN RN 6 Opal Ríos RN RN kb3
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
[2021-11-17] MEDS ORDERED: HYDROCODONE/APAP 10/325 TAB ONE (18:40)
[2021-11-17 21:19] VITALS: TEMP 97.5; O2SAT 100
[2021-11-17 21:31] VITALS: BP 126/56
== END 2021-11-17 18:55 | disposition home or self-care (01) ==
LOC: ER 13:55
DX: S32.018A Other fracture of first lumbar vertebra, initial encounter for closed fracture (principal); M54.42 Lumbago with sciatica, left side; E11.9 Type 2 diabetes mellitus without complications; I10 Essential (primary) hypertension; Z88.0 Allergy status to penicillin; Z88.5 Allergy status to narcotic agent
CPT/HCPCS: 72131; 72100; Q0162; J1100; 96372; 99284

== ENCOUNTER 2021-12-14 14:51 | Emergency (ER) | payer OTHER ==
--- OUTSIDE RECORDS SUMMARY | 2021-12-14 14:58 | XMS REPORT | Continuity of Care Document ---
:1960 Author Organization [facility] t Address [address] [place] [address] Care Team Providers Name Role Phone PCP, PATIENT DOES NOT HAVE A Primary Care Physician Unavaila JULIA Spaulding Attending Clinician Unavailable Yovana Rod DO Attending Clinician YOVANA ROD Attending Clinician Unavailable JULIA BUTTERFIELD Attending Clinician Unavailable YOVANA ROD Admitting Clinician Unavailable Payers Payer Name Policy Type Policy Number Effective Date Expiration Date Emil jones [facility] [employer] [id number] 2021 00:00:00 Problems This patient has no known problems. Allergies, Adverse Reactions, Alerts Allergy Allergy Status Severity Reaction(s) Onset Inactive Treating Comm ents Source Name Type Date Date Clinician Penicill Propensi Active Other - See U nivers in ty to comments 715 ity of adverse 00:00: [place] reaction 00 Medical s Branch PENICILL DRUG Active Other-Cmnt Univ ers IN INGREDI 7-15 ity of 00:00: [place] 00 Medical Branch n Propensi Active ty to 09-26 adverse 00:00: reaction 00 to drug Bactrim Propensi Active - Oral ty to 07-05 adverse 00:00: reaction 00 to drug NO KNOWN Drug Active Univers ALLERGIE Class ity of S [facility] Social History Social Habit Start Date Stop Date Quantity Comments Source Exposure to 2021-10-08 2021-10-18 Not sure [facility] SARS-CoV-2 (event) 00:00:00 23:14:00 Medica l Branch Sex Ass[birth year] [facility] 00:00:00 00:00:00 Medical Branch Smoking Status Start Date Stop Date Source Tobacco smoking consumption [facility] Medical unknown Branch Medications Ordered Filled Start Stop Current Ordering Indication Dosage Frequency Signature Comments Components Source Medication Medication Date Date Medication? Clinician (SIG) Name Name MORPHINE 2021-0 No 30 SULFATE ER 8-22 30 MG TBCR 00:00: 00 TRINTELLIX 2021-0 No 20 20 MG TABS 8-18 00:00: 00 Dose 2-0 No 25 Unknown 8-10 00:00: 00 &lt 2022-0 No 10 8-10 00:00: 00 Dose 2022-0 No Unknown 8-10 00:00: 00 Dose 2-0 No 15 Unknown 8-10 00:00: 00 Dose 2022-0 No 5 Unknown 8-10 00:00: 00 Dose 2022-0 No 4 Unknown 7-29 00:00: 00 Dose 2022-0 No 10 Unknown 7-29 00:00: 00 &lt 2022-0 No 7-25 00:00: 00 lisinopril 2-0 No 1mg 5 mg tablet 7-21 00:00: 00 Myrbetriq 2-0 No 1mg 25 mg 7-21 tablet,exte 00:00: nded 00 release citalopram 2-0 No 1mg 20 mg 7-21 tablet 00:00: 00 atorvastati 2-0 No 1mg n 10 mg 7-21 tablet 00:00: 00 metformin 2022-0 No 1mg 1,000 mg 7-21 tablet 00:00: 00 glimepiride 2-0 No 1mg 1 mg tablet 7-21 00:00: 00 metoclopram 2-0 No 1mg ankit 10 mg 7-21 tablet 00:00: 00 ferrous 2-0 No 1(65 mg sulfate 325 7- iron) mg (65 mg 00:00: iron) 00 tablet omeprazole 2-0 No 1mg 40 mg 7-21 capsule,del 00:00: ayed 00 release TAKE 1 2021-0 No 1000 TABLET - TWICE 00:00: DAILY. 00 TAKE 1 2021-0 No 500 TABLET BY 7- MOUTH EVERY 00:00: 8 HOURS FOR 00 10 DAYS &lt 2022-0 No 250 7- 00:00: 00 &lt 2022-0 No 10 7- 00:00: 00 &lt 2022-0 No 25 7- 00:00: 00 &lt 2022-0 No 7-21 00:00: 00 &lt 2022-0 No 7-21 00:00: 00 TAKE 1 2021-0 No 1000 TABLET 10-24 TWICE 00:00: DAILY. 00 lisinopril 2-0 No 1mg 5 mg tablet 10-24 00:00: 00 Myrbetriq 2022-0 No 1mg 25 mg - tablet,exte 00:00: nded 00 release citalopram 2-0 No 1mg 20 mg - tablet 00:00: 00 atorvastati 2022-0 No 1mg n 10 mg - tablet 00:00: 00 metformin 2-0 No 1mg 1,000 mg - tablet 00:00: 00 glimepiride 2-0 No 1mg 1 mg tablet 10-24 00:00: 00 metoclopram 2-0 No 1mg ankit 10 mg - tablet 00:00: 00 ferrous 2022-0 No 1(65 mg sulfate 325 10-24 iron) mg (65 mg 00:00: iron) 00 tablet omeprazole 2021-0 No 1mg 40 mg 10-24 capsule,del 00:00: ayed 00 release TAKE 1 2021-0 No 1000 TABLET 10-24 TWICE 00:00: DAILY. 00 TAKE 1 2021-0 No 500 TABLET BY 10-24 MOUTH EVERY 00:00: 8 HOURS FOR 00 10 DAYS &lt 2022-0 No 250 7- 00:00: 00 &lt 2022-0 No 10 7- 00:00: 00 &lt 2022-0 No 25 7- 00:00: 00 &lt 2022-0 No 7-21 00:00: 00 &lt 2022-0 No 7-21 00:00: 00 TAKE 1 2-0 No 1000 TABLET 10-24 TWICE 00:00: DAILY. 00 Dose 2022-0 No 5 Unknown 10-23 00:00: 00 Dose 2022-0 No 5 Unknown 10-23 00:00: 00 HYDROcodone 2-0 2022- No 1{tbl} 1 tablet, Univers -acetaminop 10-19 Oral, ity of hen (NORCO) 06:30: 05:28 [place] 10[place]325 mg 00 :00 dose, On Medica l tablet 1 Sat Branch tablet 10/19/21 at 0130, Routine TAKE 1 2021-0 No 500 TABLET BY 7-13 MOUTH EVERY 00:00: 12 HOURS 00 FOR 10 DAYS &lt 2022-0 No 10-16 00:00: 00 TAKE 1 2021-0 No TABLET BY 7-13 MOUTH DAILY 00:00: 00 &lt 2022-0 No 7 00:00: 00 &lt 2022-0 No 20 10-16 00:00: 00 Dose 2-0 No 50 Unknown 10-16 00:00: 00 TAKE 1 2021-0 No 500 TABLET BY 7-13 MOUTH EVERY 00:00: 8 HOURS FOR 00 10 DAYS Dose 2022-0 No 20 Unknown 10-16 00:00: 00 Dose 2022-0 No 10 Unknown 10-16 00:00: 00 &lt 2022-0 No 25 10-16 00:00: 00 DISSOLVE 1 2-0 No 4 TABLET BY 7-13 MOUTH EVERY [...] Unknown 10-16 00:00: 00 &lt 2022-0 No 7- 00:00: 00 TAKE 1 2021-0 No 500 TABLET BY 7-13 MOUTH EVERY 00:00: 12 HOURS 00 FOR 10 DAYS &lt 2022-0 No 7- 00:00: 00 TAKE 1 2022-0 No TABLET BY 7-13 MOUTH DAILY 00:00: 00 &lt 2022-0 No 7 00:00: 00 &lt 2022-0 No 20 10-16 00:00: 00 Dose 2022-0 No 50 Unknown 10-16 00:00: 00 TAKE 1 2022-0 No 500 TABLET BY 7-13 MOUTH EVERY 00:00: 8 HOURS FOR 00 10 DAYS Dose 2022-0 No 20 Unknown 10-16 00:00: 00 Dose 2022-0 No 10 Unknown 10-16 00:00: 00 &lt 2022-0 No 25 10-16 00:00: 00 DISSOLVE 1 2022-0 No 4 TABLET BY 7- MOUTH EVERY 00:00: 8 HOURS 00 NEEDED &lt 2022-0 No 10-16 00:00: 00 TAKE 1 2022-0 No 1000 TABLET 10-16 TWICE 00:00: DAILY. 00 &lt 2022-0 No 10 10-16 00:00: 00 &lt 2022-0 No 15 10-16 00:00: 00 &lt 2022-0 No 5 10-16 00:00: 00 TAKE 1 2022-0 No 5 TABLET BY 13 MOUTH TWICE 00:00: A DAY 00 NEEDED FOR ANXIETY Dose 2022-0 No Unknown 10-16 00:00: 00 &lt 2022-0 No 10-16 00:00: 00 TAKE 1 2022-0 No 5 TABLET BY 7-12 MOUTH TWICE 00:00: A DAY 00 NEEDED FOR ANXIETY TAKE 1 2022-0 No 5 TABLET BY 7-12 MOUTH TWICE 00:00: A DAY 00 NEEDED FOR ANXIETY DISSOLVE 1 2022-0 No 4 TABLET BY 7-11 MOUTH EVERY 00:00: 8 HOURS 00 NEEDED DISSOLVE 1 2022-0 No 4 TABLET BY 7-11 MOUTH EVERY 00:00: 8 HOURS 00 NEEDED TAKE 1 2022-0 No [id number] TABLET 10-09 TWICE 00:00: DAILY. 00 &lt 2022-0 No 25 10-09 00:00: 00 TAKE 1 2022-0 No 500 TABLET BY 7-06 MOUTH EVERY 00:00: 8 HOURS FOR 00 10 DAYS &lt 2022-0 No - 00:00: 00 &lt 2022-0 No 30 10-09 00:00: 00 TAKE 1 2022-0 No 30 TABLET BY 7-06 MOUTH AT 00:00: BEDTIME 00 &lt 2022-0 No 7 00:00: 00 Dose 2022-0 No 50 Unknown 10-09 00:00: 00 &lt 2022-0 No 20 10-09 00:00: 00 &lt 2022-0 No 7 00:00: 00 TAKE 1 2022-0 No [id number] TABLET 10-09 TWICE 00:00: DAILY. 00 &lt 2022-0 No 25 10-09 00:00: 00 TAKE 1 2022-0 No 500 TABLET BY 10-09 MOUTH EVERY 00:00: 8 HOURS FOR 10 DAYS &lt 2022-0 No 10-09 00:00: 00 &lt 2022-0 No 30 10-09 00:00: 00 TAKE 1 2022-0 No 30 TABLET BY 7- MOUTH AT 00:00: BEDTIME 00 &lt 2022-0 No 10-09 00:00: 00 Dose 2022-0 No 50 Unknown 10-09 00:00: 00 &lt 2022-0 No 20 10-09 00:00: 00 &lt 2022-0 No 10-09 00:00: 00 TAKE 1 2022-0 No 20 TABLET BY 7-05 MOUTH ONCE 00:00: A DAY WITH 00 MEALS TAKE 1 2022-0 No 20 TABLET BY 7-05 MOUTH ONCE 00:00: A DAY WITH 00 MEALS &lt 2022-0 No 6-30 00:00: 00 TAKE 1 2022-0 No 200 TABLET 6-30 DAILY. 00:00: 00 &lt 2022-0 No 6-30 00:00: 00 TAKE 1 2022-0 No 200 TABLET 6-30 DAILY. 00:00: 00 TAKE 1 2022-0 No TABLET BY 6-29 MOUTH EVERY 00:00: 8 HOURS FOR 00 10 DAYS TAKE 1 2022-0 No TABLET BY 6-29 MOUTH EVERY 00:00: 8 HOURS FOR 10 DAYS &lt 2022-0 No 6-29 00:00: 00 &lt 2022-0 No 6-29 00:00: 00 &lt 2022-0 No 6-29 00:00: 00 &lt 2022-0 No 6-29 00:00: 00 TAKE 1 2022-0 No TABLET BY 6-29 MOUTH EVERY 00:00: 8 HOURS FOR 00 10 DAYS TAKE 1 2022-0 No TABLET BY 29 MOUTH EVERY 00:00: 8 HOURS FOR 00 10 DAYS &lt 2022-0 No 10-02 00:00: 00 &lt 2022-0 No 10-02 00:00: 00 &lt 2022-0 No 10-02 00:00: 00 &lt 2022-0 No 10-02 00:00: 00 TAKE ONE 2-0 No (1) TO TWO 09-30 (2) 00:00: TABLET(S) 00 BY MOUTH EVERY 6 HOURS NEEDED FOR PAIN , NO MORE THAN 8 TABLETS IN 24 HOURS. &lt 2022-0 No 09-30 00:00: 00 &lt 2022-0 No 09-30 00:00: 00 &lt 2022-0 No 09-30 00:00: 00 &lt 2022-0 No 09-30 00:00: 00 &lt 2022-0 No 09-30 00:00: 00 TAKE ONE 2-0 No (1) TO TWO 09-30 (2) 00:00: TABLET(S) 00 BY MOUTH EVERY 6 HOURS NEEDED FOR PAIN , NO MORE THAN 8 TABLETS IN 24 HOURS. &lt 2022-0 No 09-30 00:00: 00 &lt 2022-0 No 09-30 00:00: 00 &lt 2022-0 No 09-30 00:00: 00 &lt 2022-0 No 09-30 00:00: 00 &lt 2022-0 No 09-30 00:00: 00 TAKE ONE 2-0 No (1) TO TWO 09-30 (2) 00:00: TABLET(S) 00 BY MOUTH EVERY 6 HOURS NEEDED FOR PAIN , NO MORE THAN 8 TABLETS IN 24 HOURS. &lt 2022-0 No 09-30 00:00: 00 &lt 2022-0 No 09-30 00:00: 00 &lt 2022-0 No 09-30 00:00: 00 &lt 2022-0 No 6 00:00: 00 &lt 2022-0 No 09-30 00:00: 00 TAKE 1 2022-0 No TABLET [...] 10 mg 4-29 tablet 00:00: 00 Myrbetriq 2-0 No 1mg 25 mg 4-29 tablet,exte 00:00: [...] glimepiride 2022-0 No 1mg 1 mg tablet 4-27 00:00: 00 levothyroxi 2022-0 No 1mcg ne [...] glimepiride 2022-0 No 1mg 1 mg tablet 4-27 00:00: 00 levothyroxi 2022-0 No 1mcg ne 75 mcg 4-27 tablet 00:00: 00 levothyroxi 2022-0 No 1mcg ne 200 mcg 4-27 tablet 00:00: 00 levothyroxi 2022-0 No 1mcg ne 300 mcg 4-27 tablet 00:00: 00 ferrous 2022-0 No 1(65 mg sulfate 325 4-27 iron) mg (65 mg 00:00: iron) 00 tablet omeprazole 2021-0 No 1mg 40 mg 4-27 capsule,del 00:00: ayed 00 release citalopram 2-0 No 1mg 20 mg 4-27 tablet 00:00: 00 atorvastati 2-0 No 1mg n 10 mg 4-27 tablet 00:00: 00 glimepiride 2-0 No 1mg 1 mg tablet 07-31 00:00: 00 levothyroxi 2021-0 No 1mcg ne 75 mcg 4-27 tablet 00:00: 00 levothyroxi 2021-0 No 1mcg ne 200 mcg 4-27 tablet 00:00: 00 levothyroxi 2021-0 No 1mcg ne 300 mcg -27 tablet 00:00: 00 ferrous 2-0 No 1(65 mg sulfate 325 - iron) mg (65 mg 00:00: iron) 00 tablet omeprazole 2021-0 No 1mg 40 mg -27 capsule,del 00:00: ayed 00 release Dose 2-0 No Unknown 4-01 00:00: 00 [...] 2022-0 No Unknown 4-01 00:00: 00 metformin 2-0 No 1mg 1,000 mg 4-01 tablet 00:00: 00 levothyroxi 2-0 No 1mcg ne 75 mcg 4-01 tablet 00:00: 00 levothyroxi 2-0 No 1mcg ne 200 mcg 4-01 tablet 00:00: 00 hydrocortis 2-0 No 1mg one acetate 4-01 25 mg 00:00: rectal 00 suppository nitrofurant 2-0 No 1mg oin 4-01 monohydrate 00:00: /macrocryst 00 als 100 mg capsule Dose 2022-0 No Unknown 4-01 00:00: 00 [...] levothyroxi 2022-0 No 1mcg ne 200 mcg 4- tablet 00:00: 00 hydrocortis 2-0 No 1mg one acetate 4-01 25 mg 00:00: rectal 00 suppository nitrofurant 2-0 No 1mg oin 4-01 monohydrate 00:00: /macrocryst 00 als 100 mg capsule Dose 2021-0 No Unknown 4-01 00:00: 00 Dose 2022-0 [...] levothyroxi 2-0 No 1mcg ne 75 mcg 4-01 tablet 00:00: 00 levothyroxi 2-0 No 1mcg ne 200 mcg 4-01 tablet 00:00: 00 hydrocortis 2-0 No 1mg one acetate 4-01 25 mg 00:00: rectal 00 suppository nitrofurant 2021-0 No 1mg oin 4-01 monohydrate 00:00: /macrocryst 00 als 100 mg capsule Dose 2021-0 No Unknown 4-01 00:00: 00 Dose 2-0 No Unknown 4-01 00:00: 00 Dose 2-0 No Unknown 4-01 00:00: 00 Dose 2-0 No Unknown 4-01 00:00: 00 Dose 2-0 No Unknown 4-01 00:00: 00 Dose 2022-0 No Unknown 4-01 00:00: 00 Dose 2022-0 No Unknown 4-01 00:00: 00 Dose 2022-0 No Unknown 4-01 00:00: 00 Dose 2022-0 No Unknown 4-01 00:00: 00 Dose 2022-0 No Unknown 4-01 00:00: 00 Dose 2022-0 No Unknown 4-01 00:00: 00 Dose 2022-0 No Unknown 4-01 00:00: 00 Dose 2-0 No Unknown 4-01 00:00: 00 Dose 2022-0 No Unknown 4-01 00:00: 00 Dose 2022-0 No Unknown 4-01 00:00: 00 Dose 2022-0 No Unknown 4-01 00:00: 00 Dose 2022-0 No Unknown 4-01 00:00: 00 Dose 2022-0 No Unknown 4-01 00:00: 00 Dose 2022-0 No Unknown 4- 00:00: 00 Dose 2-0 No Unknown 3- 00:00: 00 Dose 2-0 No Unknown 3- 00:00: 00 Dose 2-0 No Unknown 3- 00:00: 00 Dose 2022-0 No Unknown 3- 00:00: 00 Dose 2022-0 No Unknown 3- 00:00: 00 Dose 2022-0 No Unknown 3- 00:00: 00 Dose 2022-0 No Unknown 3-31 [...] mg-10,000 00 unit/mL-1 % ear drops,susp Humulin 2022-0 No 1unit/m 70/30 U-100 1-19 L Insulin 100 00:00: (70-30) unit/mL 00 subcutaneou s suspension lisinopril 2022-0 No 1mg 5 mg tablet -19 00:00: 00 hydroxyzine 2022-0 No 1mg HCl 50 mg 1-19 tablet 00:00: 00 Myrbetriq 2022-0 No 1mg 25 mg 1-19 tablet,exte 00:00: nded 00 release Dose 2022-0 No Unknown -19 00:00: 00 metformin 2022-0 No 1mg 1,000 mg 1-19 tablet 00:00: 00 metformin 2022-0 No 1mg 500 mg 1-19 tablet 00:00: 00 metoprolol 2022-0 No 1mg tartrate 25 1-19 mg tablet 00:00: 00 metoclopram 2022-0 No 1mg ankit 10 mg 1-19 tablet 00:00: 00 azithromyci 2022-0 No mg n 250 mg 1-19 tablet 00:00: 00 Dose 2022-0 No Unknown 1-19 00:00: 00 Dose 2022-0 No Unknown 1-19 00:00: 00 Dose 2022-0 No Unknown 1-19 00:00: 00 levothyroxi 2022-0 No 1mcg ne 150 mcg 1-19 capsule 00:00: 00 neomycin-po 2022-0 No 4mg/mL- lymyxin-hyd 1-19 unit/mL rocort 3.5 00:00: -% mg-10,000 00 unit/mL-1 % ear drops,susp Humulin 2-0 No 1unit/m 70/30 U-100 1-19 L Insulin 100 00:00: (70-30) unit/mL 00 subcutaneou s suspension lisinopril 2022-0 No 1mg 5 mg tablet 19 00:00: 00 hydroxyzine 2022-0 No 1mg HCl 50 mg 1-19 tablet 00:00: 00 Myrbetriq 2022-0 No 1mg 25 mg 1-19 tablet,exte 00:00: nded 00 release Dose 2022-0 No Unknown 1-19 00:00: 00 metformin 2022-0 No 1mg 1,000 mg 1-19 tablet 00:00: 00 metformin 2022-0 No 1mg 500 mg 1-19 tablet 00:00: 00 metoprolol 2022-0 No 1mg tartrate 25 1-19 mg tablet 00:00: 00 metoclopram 2022-0 No 1mg ankit 10 mg 1-19 tablet 00:00: 00 azithromyci 2022-0 No mg n 250 mg 1-19 tablet 00:00: 00 neomycin-po 2-0 No 4mg/mL- lymyxin-hyd 1-19 unit/mL rocort 3.5 00:00: -% mg-10,000 00 unit/mL-1 % ear drops,susp Humulin 2-0 No 1unit/m 70/30 U-100 1-19 L Insulin 100 00:00: (70-30) unit/mL 00 subcutaneou s suspension lisinopril 2-0 No 1mg 5 mg tablet -19 00:00: 00 Dose 2022-0 No Unknown 1-19 00:00: 00 hydroxyzine 2022-0 No 1mg HCl 50 mg 1-19 tablet 00:00: 00 Myrbetriq 2-0 No 1mg 25 mg 1-19 tablet,exte 00:00: nded 00 release Dose 2-0 No Unknown 1-19 00:00: 00 metformin 2022-0 No 1mg 1,000 mg 1-19 tablet 00:00: 00 metformin 2022-0 No 1mg 500 mg 1-19 tablet 00:00: 00 metoprolol 2022-0 No 1mg tartrate 25 1-19 mg tablet 00:00: 00 metoclopram 2022-0 No 1mg ankit 10 mg 1-19 tablet 00:00: 00 azithromyci 2022-0 No mg n 250 mg 1-19 tablet 00:00: 00 Dose 2022-0 No Unknown 1-19 00:00: 00 Dose 2022-0 No Unknown 1-19 00:00: 00 Dose 2022-0 No Unknown 1-19 00:00: 00 Dose 2022-0 No Unknown 1-19 00:00: 00 levothyroxi 2022-0 No 1mcg ne 150 mcg 1-19 capsule 00:00: 00 Dose 2022-0 No Unknown 1-19 00:00: 00 levothyroxi 2022-0 No 1mcg ne 150 mcg 1-19 capsule 00:00: 00 lisinopril 2022-0 No 1mg 5 mg tablet 04-11 00:00: 00 lisinopril 2022-0 No 1mg 5 mg tablet 04-11 00:00: 00 lisinopril 2022-0 No 1mg 5 mg tablet 04-11 00:00: 00 Humulin 2022-0 No 1unit/m 70/30 U-100 1-03 L Insulin 100 00:00: (70-30) unit/mL 00 subcutaneou s suspension hydroxyzine 2-0 No 1mg HCl 50 mg 1-03 tablet 00:00: 00 hydroxyzine 2022-0 No 1mg HCl 50 mg 1-03 tablet 00:00: 00 metformin 2022-0 No 1mg 1,000 mg 1-03 tablet 00:00: 00 Humulin 2022-0 No 1unit/m 70/30 U-100 1-03 L Insulin 100 00:00: (70-30) unit/mL 00 subcutaneou s suspension hydroxyzine 2-0 No 1mg HCl 50 mg 1-03 tablet 00:00: 00 hydroxyzine 2022-0 No 1mg HCl 50 mg 1-03 tablet 00:00: 00 metformin 2022-0 No 1mg 1,000 mg 1-03 tablet 00:00: 00 Humulin 2022-0 No 1unit/m 70/30 U-100 1-03 L Insulin 100 00:00: (70-30) unit/mL 00 subcutaneou s suspension hydroxyzine 2-0 No 1mg HCl 50 mg 1-03 tablet 00:00: 00 hydroxyzine 2022-0 No 1mg HCl 50 mg 1-03 tablet 00:00: 00 metformin 2022-0 No 1mg 1,000 mg 1-03 tablet 00:00: 00 Zofran 4 mg 2020-1 No 1mg tablet 2-16 00:00: 00 levothyroxi 1-1 No 1mcg ne 150 mcg 2-16 capsule 00:00: 00 Zofran 4 mg 2020-1 No 1mg tablet 2-16 00:00: 00 levothyroxi 2020- No 1mcg ne 150 mcg 2-16 capsule 00:00: 00 Zofran 4 mg 2020- No 1mg tablet 2-16 00:00: 00 levothyroxi 2020-04 No 1mcg ne 150 mcg 2-16 capsule 00:00: 00 metformin 2020- No 1mg 500 mg 1-27 tablet 00:00: 00 metformin 2020- No 1mg 500 mg 1-27 tablet 00:00: 00 metformin 2020- No 1mg 500 mg 1-27 tablet 00:00: 00 metoprolol 2020- No 1mg tartrate 25 1-22 mg tablet 00:00: 00 metoprolol 2020- No 1mg tartrate 25 1-22 mg tablet 00:00: 00 metoprolol 2020- No 1mg tartrate 25 1-22 mg tablet 00:00: 00 Myrbetriq 2020- No 1mg 25 mg 1-16 tablet,exte 00:00: nded 00 release metoclopram 2020- No 1mg ankit 10 mg 1-16 tablet 00:00: 00 Myrbetriq 2020- No 1mg 25 mg 1-16 tablet,exte 00:00: nded 00 release metoclopram 2020- No 1mg ankit 10 mg 1-16 tablet 00:00: 00 Myrbetriq 2020- No 1mg 25 mg 1-16 tablet,exte 00:00: nded 00 release metoclopram 2020- No 1mg ankit 10 mg 1-16 tablet 00:00: 00 atorvastati 2020- No 1mg n 10 mg 1-14 tablet 00:00: 00 omeprazole 2020- No 1mg 40 mg 1-14 capsule,del 00:00: ayed 00 release atorvastati 2020- No 1mg n 10 mg 1-14 tablet 00:00: 00 omeprazole 2020-1 No 1mg 40 mg 1-14 capsule,del 00:00: ayed 00 release atorvastati 2020- No 1mg n 10 mg 1-14 tablet 00:00: 00 omeprazole 2020- No 1mg 40 mg 1-14 capsule,del 00:00: ayed 00 release levothyroxi 2020-04 No 1mcg ne 150 mcg 1-04 capsule 00:00: 00 levothyroxi 2020-04 No 1mcg ne 150 mcg 1-04 capsule 00:00: 00 levothyroxi 2020-1 No 1mcg ne 150 mcg 1-04 capsule 00:00: 00 ferrous 2020-1 No 1(65 mg sulfate 325 0-21 iron) mg (65 mg 00:00: iron) 00 tablet ferrous 2020-04 No 1(65 mg sulfate 325 0-21 iron) mg (65 mg 00:00: iron) 00 tablet ferrous 2020-04 No 1(65 mg sulfate 325 0-21 iron) mg (65 mg 00:00: iron) 00 tablet Myrbetriq 1 No 1mg 25 mg 0-13 tablet,exte 00:00: nded 00 release levothyroxi 1 No 1mcg ne 300 mcg 0-13 tablet 00:00: 00 Myrbetriq 2020-1 No 1mg 25 mg 0-13 tablet,exte 00:00: nded 00 release levothyroxi 2020-1 No 1mcg ne 300 mcg 0-13 tablet 00:00: 00 Myrbetriq 2020-1 No 1mg 25 mg 0-13 tablet,exte 00:00: nded 00 release levothyroxi 1 No 1mcg ne 300 mcg 0-13 tablet 00:00: 00 nitrofurant 2020-1 No 1mg oin 0-12 macrocrysta 00:00: l 100 mg 00 capsule nitrofurant 2020-1 No 1mg oin 0-12 macrocrysta 00:00: l 100 mg 00 capsule nitrofurant 2020-1 No 1mg oin 0-12 macrocrysta 00:00: l 100 mg 00 capsule metoclopram 1-0 No 1mg ankit 10 mg 9-13 tablet 00:00: 00 metoclopram 1-0 No 1mg ankit 10 mg 9-13 tablet 00:00: 00 metoclopram 1-0 No 1mg ankit 10 mg 9-13 tablet 00:00: 00 Myrbetriq 1-0 No 1mg 25 mg 9-01 tablet,exte 00:00: nded 00 release Myrbetriq 2021-0 No 1mg 25 mg 9-01 tablet,exte 00:00: nded 00 release Myrbetriq 2021-0 No 1mg 25 mg 9-01 tablet,exte 00:00: nded 00 release metoclopram 2021-0 No 1mg ankit 10 mg 8-13 tablet 00:00: 00 metoclopram 2021-0 No 1mg ankit 10 mg 8-13 tablet 00:00: 00 metoclopram 2021-0 No 1mg aknit 10 mg 8-13 tablet 00:00: 00 metoclopram [...] 7-22 capsule,del 00:00: ayed 00 release Humulin 1-0 No 1unit/m 70/30 U-100 7-22 L Insulin 100 00:00: (70-30) unit/mL 00 subcutaneou s suspension atorvastati 1-0 No 1mg n 10 mg 7-22 tablet 00:00: 00 Myrbetriq 1-0 No 1mg 25 mg 7-22 tablet,exte 00:00: nded 00 release Trintellix 1-0 No 1mg 20 mg 7-22 tablet 00:00: 00 metformin 2021-0 No 1mg 500 mg 7-22 tablet 00:00: 00 metoprolol 2021-0 No 1mg tartrate 25 7-22 mg tablet 00:00: 00 mirtazapine 2021-0 No 1mg 15 mg 7-22 tablet 00:00: 00 levothyroxi 2021-0 No 1mcg ne 300 mcg 7-22 tablet 00:00: 00 omeprazole 2021-0 No 1mg 40 mg 7-22 capsule,del 00:00: ayed 00 release alprazolam 2021-0 No 1mg 0.5 mg 7-13 tablet 00:00: 00 metoprolol 2021-0 No 1mg tartrate 25 7-13 mg tablet 00:00: 00 metoclopram 2021-0 No 1mg ankit 10 mg 7-13 tablet 00:00: 00 mirtazapine 2021-0 No 1mg 15 mg 7-13 tablet 00:00: 00 levothyroxi 2021-0 No 1mcg ne 300 mcg 7-13 tablet 00:00: 00 omeprazole 2021-0 No 1mg 40 mg 7-13 capsule,del 00:00: ayed 00 release Vitamin D2 2021-0 No 1(50,00 1,250 mcg 7-13 0 unit) (50,000 00:00: unit) 00 capsule Humulin 2021-0 No 1unit/m 70/30 U-100 7-13 L Insulin 100 00:00: (70-30) unit/mL 00 subcutaneou s suspension Trintellix 2021-0 No 1mg 20 mg 7-13 tablet 00:00: 00 Myrbetriq 2021-0 No 1mg 25 mg 7-13 tablet,exte 00:00: nded 00 release atorvastati 2021-0 No 1mg n 10 mg 7-13 tablet 00:00: 00 metformin 2021-0 No 1mg 500 mg 7-13 tablet 00:00: 00 alprazolam 2021-0 No 1mg 0.5 mg 7-13 tablet 00:00: 00 metoprolol 2021-0 No 1mg tartrate 25 7-13 mg tablet 00:00: 00 metoclopram 2021-0 No 1mg ankit 10 mg 7-13 tablet 00:00: 00 mirtazapine 2021-0 No 1mg 15 mg 7-13 tablet 00:00: 00 levothyroxi 1-0 No 1mcg ne 300 mcg 7-13 tablet 00:00: 00 omeprazole 1-0 No 1mg 40 mg 7-13 capsule,del 00:00: ayed 00 release Vitamin D2 1-0 No 1(50,00 1,250 mcg 7-13 0 unit) (50,000 00:00: unit) 00 capsule Humulin 2021-0 No 1unit/m 70/30 U-100 7-13 L Insulin 100 00:00: (70-30) unit/mL 00 subcutaneou s suspension Humulin 2021-0 No 1unit/m 70/30 U-100 7-13 L Insulin 100 00:00: (70-30) unit/mL 00 subcutaneou s suspension Trintellix 2021-0 No 1mg 20 mg 7-13 tablet 00:00: 00 Myrbetriq 2021-0 No 1mg 25 mg 7-13 tablet,exte 00:00: nded 00 release atorvastati 2021-0 No 1mg n 10 mg 7-13 tablet 00:00: 00 metformin 2021-0 No 1mg 500 mg 7-13 tablet 00:00: 00 alprazolam 1-0 No 1mg 0.5 mg 7-13 tablet 00:00: 00 metoprolol 1-0 No 1mg tartrate 25 7-13 mg tablet 00:00: 00 metoclopram 1-0 No 1mg ankit 10 mg 7-13 tablet 00:00: 00 mirtazapine 1-0 No 1mg 15 mg 7-13 tablet 00:00: 00 levothyroxi 1-0 No 1mcg ne 300 mcg 7-13 tablet 00:00: 00 omeprazole 2020-0 No 1mg 40 mg 7-13 capsule,del 00:00: ayed 00 release Vitamin D2 2020-0 No 1(50,00 1,250 mcg 7-13 0 unit) (50,000 00:00: unit) 00 capsule Trintellix 2020-0 No 1mg 20 mg 7-13 tablet 00:00: 00 Myrbetriq 1-0 No 1mg 25 mg 7-13 tablet,exte 00:00: nded 00 release atorvastati 2020-0 No 1mg n 10 mg 7-13 tablet 00:00: 00 metformin 1-0 No 1mg 500 mg 7-13 tablet 00:00: 00 Immunizations Ordered Immunization Filled Immunization Date Status Commen ts Source Name Name Yadi COVID-19 2021-02-07 Completed Vaccine 00:00:00 Husama COVID-19 2021-02-07 Completed Vaccine 00:00:00 Moderna COVID-19 2021-02-07 Completed Vaccine 00:00:00 Vital Signs Vital Name Observation Time Observation Value Comments Source Systolic blood 2021-10-19 08:10:00 123 mm[Hg] Univer sity of pressure [facility] Diastolic blood 2021-10-19 08:10:00 87 mm[Hg[facility] 2021-10-19 08:10:00 82 /min [facility] Respiratory rate 2021-10-19 08:10:00 18 /[facility] in 2021-10-19 08:10:00 98 /min [facility] blood by [facility] Pulse oximetry Branch Body temperature 2021-10-19 04:15:00 [facility].83 [facility] Body height 2021-10-19 04:15:00 157.5 cm [facility] Body weight 2021-10-19 04:15:00 88.905 kg [facility] BMI 2021-10-19 04:15:00 35.85 kg/m2 [facility] BP Systolic 2021-12-02 13:09:00 142 mm[Hg] BP Diastolic 2021-12-02 13:09:00 81 mm[Hg] Weight Measured 2021-12-02 13:09:00 195.40 pounds Height Measured 2021-12-02 13:09:00 61.81 inches Body Temperature 2021-12-02 13:09:00 97.80 degrees Heart Rate 2021-12-02 13:09:00 91.00 /min Respiratory Rate 2021-12-02 13:09:00 BP Systolic 2021-10-24 11:31:00 110 mm[Hg] BP [...] 3 VW LEFT 2021-10-19 04:42:39 Yovana Rod [facility] NOTICE OF PRIVACY 2021-10-19 04:04:38 [facility] CONSENT/REFUSAL FOR 2021-10-19 04:04:16 [facility] TREATMENT Plan of Care Planned Activity Planned Date Details Comments Source Goal Plan of Care Note [code = 06533-3] Goal Plan of Care Note [code = 16102-6] Goal Plan of Care Note [code = 04870-5] Goal Plan of Care Note [code = 43513-3] Goal Plan of Care Note [code = 39439-7] Goal Plan of Care Note [code = 19276-3] Goal Plan of Care Note [code = 64761-7] Goal Plan of Care Note [code = 87117-9] Goal Plan of Care Note [code = 99339-1] Goal Plan of Care Note [code = 76002-6] Goal Plan of Care Note [code = 50840-3] Goal Plan of Care Note [code = 09440-3] Goal Plan of Care Note [code = 31565-2] Goal Plan of Care Note [code = 80891-5] Goal Plan of Care Note [code = 24959-1] Goal Plan of Care Note [code = 16776-4] Goal Plan of Care Note [code = 16597-7] Goal Plan of Care Note [code = 89824-3] Goal Plan of Care Note [code = 90882-4] Goal Plan of Care Note [code = 74017-5] Goal Plan of Care Note [code = 52971-0] Goal Plan of Care Note [code = 14475-2] Goal Plan of Care Note [code = 36507-3] Goal Plan of Care Note [code = 09554-4] Goal Plan of Care Note [code = 79029-8] Goal Plan of Care Note [code = 57582-4] Goal Plan of Care Note [code = 06900-5] Goal Plan of Care Note [code = 64676-4] Goal Plan of Care Note [code = 76048-3] Goal Plan of Care Note [code = 60118-5] Goal Plan of Care Note [code = 49505-4] Goal Plan of Care Note [code = 10105-4] Goal Plan of Care Note [code = 14636-9] Goal Plan of Care Note [code = 78918-1] Goal Plan of Care Note [code = 31217-8] Goal Plan of Care Note [code = 99359-9] Goal Plan of Care Note [code = 09413-2] Goal Plan of Care Note [code = 03820-9] Goal Plan of Care Note [code = 44351-0] Goal Plan of Care Note [code = 90703-8] Goal Plan of Care Note [code = 02093-4] Goal Plan of Care Note [code = 72617-9] Goal Plan of Care Note [code = 23132-9] Goal Plan of Care Note [code = 37835-8] Goal Plan of Care Note [code = 60687-6] Goal Plan of Care Note [code = 56268-1] Goal Plan of Care Note [code = 13186-8] Goal Plan of Care Note [code = 02345-5] Goal Plan of Care Note [code = 53520-3] Goal Plan of Care Note [code = 44144-3] Goal Plan of Care Note [code = 79112-6] Goal Plan of Care Note [code = 35179-6] Goal Plan of Care Note [code = 62812-9] Goal Plan of Care Note [code = 60588-8] Goal Plan of Care Note [code = 11643-2] Goal Plan of Care Note [code = 80251-5] Goal Plan of Care Note [code = 15430-9] Goal Plan of Care Note [code = 04593-6] Goal Plan of Care Note [code = 57315-6] Goal Plan of Care Note [code = 23887-6] Goal Plan of Care Note [code = 03613-2] Goal Plan of Care Note [code = 48156-9] Goal Plan of Care Note [code = 66646-3] Goal Plan of Care Note [code = 43945-9] Goal Plan of Care Note [code = 80708-6] Goal Plan of Care Note [code = 96384-4] Goal Plan of Care Note [code = 04424-7] Goal Plan of Care Note [code = 79661-5] Goal Plan of Care Note [code = 87164-9] Goal Plan of Care Note [code = 40936-4] Goal Plan of Care Note [code = 58646-5] Goal Plan of Care Note [code = 99896-5] Goal Plan of Care Note [code = 76101-3] Goal Plan of Care Note [code = 30177-0] Goal Plan of Care Note [code = 34261-5] Goal Plan of Care Note [code = 83646-1] Goal Plan of Care Note [code = 21431-1] Goal Plan of Care Note [code = 71870-8] Goal Plan of Care Note [code = 92735-6] Goal Plan of Care Note [code = 66391-3] Goal Plan of Care Note [code = 18096-6] Goal Plan of Care Note [code = 25893-5] Encounters Start End Encounter Admission Attending Care Care Encounter Source Date/Time Date/Time Type Type Clinicians Facility Department ID 2021-09-19 Outpatient [place] [id number] MS 01:03:24 [facility] [id number] [facility] 2021-12-02 2021-12-02 Outpatient [id number] 00:00:00 00:00:00 Visit 2x01-0j01 q01-1y78-5 -8xv1-o75 5-k41042 [id number] 5206-07-21 2021-10-24 Outpatient [id number]- [id number] 42 mk51h6-1 00:00:00 00:00:00 Visit 422b-482d 22b-482d-8 -8157-b70 157-b704e0 7w62l6tke 0f6bdd 2021-10-18 2021-10-19 [id number] 23:20:00 03:26:00 Yovana [place]OCK 350.1.13.10 i ty carl MONTIEL 4.2.7.2.686 [facility] [id number] [facility] [address] 2021-10-18 2021-10-19 Emergency X , [facility] ERT [id number] [facility] 23:20:00 03:26:00 YOVANA hearn [facility] 2021-09-30 2021-09-30 Outpatient [id number] e67v93-2 00:00:00 00:00:00 Visit 9v8e-4puc s4o-8fiv-g -e7g3-ixz 5g6-dipx89 [id number] 2021-06-20 2021-06-20 Outpatient [facility] 12:04:00 23:59:00 JULIA Results Test Description Test Time Test Comments Results Result Comments Source VITAMIN D, 25 OH 2021-12-03 06:58:12 Test Item Value Reference Range Interpretation Comme nts VITAMIN D, 25 OH (test code 18 NG/ML SEE BELOW L NOTE: 25-HYDROXYVITAMIN D ASSAY = 4958) INCLUDES 25-HYD ROXYVITAMIN D2 AND D3. METHODOLOGY IS CHEMILUMINESCENT IMMUNOASSAY. INTERPRETIVE RANGES PED IATRIC (<17 YEARS) . . . . . . . . . . . NG/ML 20-100ADULT: INSUFFICIENT . . . . . . . . . . . . . . NG/ML <20 S UBOPTIMAL . . . . . . . . . . . . . . . NG/ML 20-29 OPTIMAL . . . . . . . . . . . . . . . . . NG/ML 30-100 UN LESS OTHERWISE INDICATED, ALL TESTING PERFORMED ATCLINICAL PATH [employer] [address] [place] [address] LABORATORY DIRE CTOR: LILLI VELAZQUEZ M.D. CLIA NUMBER [id number] [place]. [id number] TSH, THIRD [id number] 06:45:08 Test Item Value Reference Range Interpretation Comments TSH, THIRD GENERATION (test code 1.290 UIU/ML 0.400-4.100 = 2821) VITAMIN [id number] 06:45:08 Test Item Value Reference Range Interpretation Comments VITAMIN B-12 (test code = 2840) 647 PG/ML 200-950 COMPREHENSIVE METABOLIC [id number] 05:39:52 Test Item Value Reference Range Interpretation Comments GLUCOSE (test code = 119 MG/DL 70-99 H 2216) BUN (test code = 19 MG/DL 8-23 2207) CREATININE (test 0.98 MG/DL 0.60-1.30 code = 221) eGFR (2020 CKD-EPI) 65 ML/MIN/1.73 >60 (test code = 90098) CALC BUN/CREAT (test 19 RATIO 6-28 code = 2235) SODIUM (test code = 137 MEQ/L 565-662 8712) POTASSIUM (test code 4.9 MEQ/L 3.5-5.4 = 2227) CHLORIDE (test code 97 MEQ/L 95-107 = 2214) CARBON DIOXIDE (test 23 MEQ/L 19-31 code = 220) CALCIUM (test code = 9.7 MG/DL 8.5-10.5 2208) PROTEIN, TOTAL (test 7.9 G/DL 6.1-8.3 code = 222) ALBUMIN (test code = 4.6 G/DL 3.5-5.2 2200) CALC GLOBULIN (test 3.3 G/DL 1.9-3.7 code = 2240) CALC A/G RATIO (test 1.4 RATIO 1.0-2.6 code = 2234) BILIRUBIN, TOTAL 0.3 MG/DL See_Comment [Automated message] (test code = 220) The syste m which generated this result transmit esdras reference range : <=1.2. The refe rence range was not u sed to interpret th is result as normal/abnormal . ALKALINE PHOSPHATASE 79 U/L 40-140 (test code = 2204) AST (test code = 48 U/L 9-40 H 2217) ALT (test code = 48 U/L 5-40 H 2218) CBC W/AUTO DIFF WITH [id number] 02:09:53 Test Item Value Reference Range Interpretation Comments WBC (test code = 7.0 K/UL 3.5-11.0 1001) RBC (test code = 3.83 M/UL 3.80-5.40 1002) HEMOGLOBIN (test code 10.9 G/DL 11.5-15.5 L = 1003) HEMATOCRIT (test code 33.2 % 34.0-45.0 L = 1004) MCV (test code = 86.7 fL 80.0-99.0 1005) MCH (test code = 28.5 PG 25.0-33.0 1006) MCHC (test code = 32.8 G/DL 31.0-36.0 1007) RDW (test code = 15.2 % 11.5-15.0 H 1038) NEUTROPHILS (test 63.1 % code = 1008) LYMPHOCYTES (test 28.0 % code = 1010) MONOCYTES (test code 6.4 % = 1011) EOSINOPHILS (test 1.6 % code = 1012) BASOPHILS (test code 0.6 % = 1013) IMMATURE GRANULOCYTES 0.3 % (test code = 1036) NUCLEATED RBCS (test 0.0 /100 WBC'S See_Comment [Aut omated code = 1065) message] The sy stem which generated this result transmitted reference range : 0.0. The refere nce range was not u sed to interpret th is result as normal/abnormal . PLATELET COUNT (test 115 K/UL 130-400 L code = 1015) ABSOLUTE NEUTROPHILS 4.41 K/UL 1.50-7.50 (test code = 1066) ABSOLUTE LYMPHOCYTES 1.96 K/UL 1.00-4.00 (test code = 1067) ABSOLUTE MONOCYTES 0.45 K/UL 0.20-1.00 (test code = 1068) ABSOLUTE EOSINOPHILS 0.11 K/UL 0.00-0.50 (test code = 1040) ABSOLUTE BASOPHILS 0.04 K/UL 0.00-0.20 (test code = 1069) ABS IMMATURE 0.02 K/UL 0.00-0.10 GRANULOCYTES (test code = 1020) ABS NUCLEATED RBCS 0.00 K/UL 0.00-0.11 (test code = 33310) CULTURE, [id number] 12:01:26SPECIMEN NUMBER: [id number] CULTURE, URINE SPECIMEN NUMBER: [id number] SPECIMEN COMMENT: URINE SOURCE: URINE REPORT STATUS: FINAL FINAL REPORT: 10/03/2021 10-50,000 CFU/ML MIXED UROGENITAL SOBEIDA UNLESS O THERWISE INDICATED, ALL TESTING PERFORMED [facility] [address] [place] [address] COLLOID MILL OPERATOR: LILLI VELAZQUEZ M.D. CLIA NUMBER [id number] [place].[id number], [id number] 00:00:00 Test Item Value Reference Range Interpretation Comments CULTURE, URINE (test SPECIMEN NUMBER: code = 58556) [id number] CULTURE, [id number] 00:00:00 Test Item Value Reference Range Interpretation Comments CULTURE, URINE (test SPECIMEN NUMBER: code = 64699) [id number] CULTURE, [id number] 00:00:00 Test Item Value Reference Range Interpretation Comments CULTURE, URINE (test SPECIMEN NUMBER: code = 43534) [id number] TSH, THIRD [id number] 06:16:09 Test Item Value Reference Range Interpretation Comments TSH, THIRD <0.010 UIU/ML 0.400-4.100 L UNLESS OTHERW ISE GENERATION (test INDICATED, ALL code = 2821) TESTING PERFORM ED [facility] [address] [place] [id number] [place] [address] DIRECTOR: LILLI VELAZQUEZ M.D. CLIA NUMBER [id number] CAP ACCREDITATION N O. [id number] HEMOGLOBIN [id number] 05:23:24 Test Item Value Reference Range Interpretation Comments HEMOGLOBIN A1c (test 6.7 % 4.2-5.6 H AMERIC AN DIABETES code = 74159) ASSOCIATION IDELINES FOR HGB A1C: PREDIABETES/INC REASED [...] TESTING OR LABORATORY C ONSULTATION. COMPREHENSIVE METABOLIC [id number] 04:45:06 Test Item Value Reference Range Interpretation Comments GLUCOSE (test code = 266 MG/DL 70-99 H 2216) BUN (test code = 17 MG/DL 8-23 2207) CREATININE (test 0.92 MG/DL 0.60-1.30 code = 221) eGFR (2020 CKD-EPI) 70 ML/MIN/1.73 >60 (test code = 59701) CALC BUN/CREAT (test 18 RATIO 6-28 code = 2235) SODIUM (test code = 136 MEQ/L 276-100 2173) POTASSIUM (test code 5.3 MEQ/L 3.5-5.4 = 2227) CHLORIDE (test code 98 MEQ/L 95-107 = 2214) CARBON DIOXIDE (test 22 MEQ/L 19-31 code = 220) CALCIUM (test code = 8.8 MG/DL 8.5-10.5 2208) PROTEIN, TOTAL (test 7.4 G/DL 6.1-8.3 code = 2228) ALBUMIN (test code = 4.1 G/DL 3.5-5.2 2200) CALC GLOBULIN (test 3.3 G/DL 1.9-3.7 code = 2239) CALC A/G RATIO (test 1.2 RATIO 1.0-2.6 code = 223) BILIRUBIN, TOTAL 0.3 MG/DL See_Comment [Automated message] (test code = 2206) The syste m which generated this result transmit esdras reference range : <=1.2. The refe rence range was not u sed to interpret th is result as normal/abnormal . ALKALINE PHOSPHATASE 88 U/L 40-140 (test code = 2203) AST (test code = 32 U/L 9-40 2217) ALT (test code = 29 U/L 5-40 2218) HEMOGLOBIN [id number] 00:00:00 Test Item Value Reference Range Interpretation Comments HEMOGLOBIN A1c (test code = 88992) 6.7 % HEMOGLOBIN [id number] 00:00:00 Test Item Value Reference Range Interpretation Comments HEMOGLOBIN A1c (test code = 66527) 6.7 % COMPREHENSIVE METABOLIC [id number] 00:00:00 Test Item Value Reference Range Interpretation Comments GLUCOSE (test code = 2217) 266 MG/DL BUN (test code = 2207) 17 MG/DL CREATININE (test code = 4) 0.92 MG/DL eGFR (2020 CKD-EPI) (test code 70 ML/MIN/1.73 = 87234) CALC BUN/CREAT (test code = 18 RATIO [...] ALT (test code = 2219) 29 U/L [id number] 00:00:00 Test Item Value Reference Range Interpretation Comments TSH, THIRD GENERATION (test <0.010 UIU/ML code = 2821) [id number] 00:00:00 Test Item Value Reference Range Interpretation Comments TSH, THIRD GENERATION (test <0.010 UIU/ML code = 2821) HEMOGLOBIN [id number] 00:00:00 Test Item Value Reference Range Interpretation Comments HEMOGLOBIN A1c (test code = 29776) 6.7 % HEMOGLOBIN [id number] 00:00:00 Test Item Value Reference Range Interpretation Comments HEMOGLOBIN A1c (test code = 10429) 6.7 % HEMOGLOBIN [id number] 00:00:00 Test Item Value Reference Range Interpretation Comments HEMOGLOBIN A1c (test code = 31336) 6.7 % COMPREHENSIVE METABOLIC [id number] 00:00:00 Test Item Value Reference Range Interpretation Comments GLUCOSE (test code = 2217) 266 MG/DL BUN (test code = 2208) 17 MG/DL CREATININE (test code = 2214) 0.92 MG/DL eGFR (2020 CKD-EPI) (test code 70 ML/MIN/1.73 = 49454) CALC BUN/CREAT (test code = 18 RATIO 2235) SODIUM (test code = 2231) 136 MEQ/L POTASSIUM (test code = 2228) 5.3 MEQ/L CHLORIDE (test code = 2215) 98 MEQ/L CARBON DIOXIDE (test code = 22 MEQ/L 220) CALCIUM (test code = 2209) 8.8 MG/DL PROTEIN, TOTAL (test code = 7.4 G/DL 2228) ALBUMIN (test code = 2201) 4.1 G/DL CALC GLOBULIN (test code = 3.3 G/DL 2240) CALC A/G RATIO (test code = 1.2 RATIO 2234) BILIRUBIN, TOTAL (test code = 0.3 MG/DL 2206) ALKALINE PHOSPHATASE (test 88 U/L code = 2204) AST (test code = 2218) 32 U/L ALT (test code = 2219) 29 U/L COMPREHENSIVE METABOLIC [id number] 00:00:00 Test Item Value Reference Range Interpretation Comments GLUCOSE (test code = 2217) 266 MG/DL BUN (test code = 2208) 17 MG/DL CREATININE (test code = 2214) 0.92 MG/DL eGFR (2020 CKD-EPI) (test code 70 ML/MIN/1.73 = 47427) CALC BUN/CREAT (test code = 18 RATIO [...] CALC GLOBULIN (test code = 3.3 G/DL 2240) CALC A/G RATIO (test code = 1.2 RATIO 2234) BILIRUBIN, TOTAL (test code = 0.3 MG/DL 7) ALKALINE PHOSPHATASE (test 88 U/L code = 2204) AST (test code = 2218) 32 U/L ALT (test code = 2219) 29 U/L [id number] 00:00:00 Test Item Value Reference Range Interpretation Comments TSH, THIRD GENERATION (test <0.010 UIU/ML code = 2821) [id number] 00:00:00 Test Item Value Reference Range Interpretation Comments TSH, THIRD GENERATION (test <0.010 UIU/ML code = 2821) [id number] 00:00:00 Test Item Value Reference Range Interpretation Comments TSH, THIRD GENERATION (test <0.010 UIU/ML code = 2821) TSH, THIRD [id number] 06:18:54 Test Item Value Reference Range Interpretation Comments TSH, THIRD GENERATION (test code 0.190 UIU/ML 0.400-4.100 L = 2821) HEMOGLOBIN [id number] 03:11:56 Test Item Value Reference Range Interpretation Comments HEMOGLOBIN A1c (test 8.4 % 4.2-5.6 H [employer]IC AN DIABETES code = 03947) ASSOCIATION IDELINES FOR HGB A1C: PREDIABETES/INC REASED [...] TESTING OR LABORATORY C ONSULTATION. COMPREHENSIVE METABOLIC [id number] 03:11:06 Test Item Value Reference Range Interpretation Comments GLUCOSE (test code = 141 MG/DL 70-99 H 2216) BUN (test code = 31 MG/DL 8-23 H 2207) CREATININE (test 1.07 MG/DL 0.60-1.30 code = 2214) eGFR (2020 CKD-EPI) 59 ML/MIN/1.73 >60 L (test code = 15908) CALC BUN/CREAT (test 29 RATIO 6-28 H code = 2235) SODIUM (test code = 141 MEQ/L 398-689 6232) POTASSIUM (test code 4.7 MEQ/L 3.5-5.4 = 2227) CHLORIDE (test code 99 MEQ/L 95-107 = 221) CARBON DIOXIDE (test 26 MEQ/L 19-31 code = 2206) CALCIUM (test code = 8.8 MG/DL 8.5-10.5 2208) PROTEIN, TOTAL (test 8.0 G/DL 6.1-8.3 code = 2229) ALBUMIN (test code = 4.5 G/DL 3.5-5.2 2201) CALC GLOBULIN (test 3.5 G/DL 1.9-3.7 code [...] = 41 U/L 5-40 H 2218) LIPID [id number] 03:11:06 Test Item Value Reference Range Interpretation [...] MOREINFORMATION , SEE CLIENT ANNOUNCE MENT AT [email or web address] RISK RATIO LDL/HDL 1.28 RATIO <3.22 (test code = 2238) IRON, [id number] 03:11:06 Test Item Value Reference Range Interpretation Comments IRON, SERUM (test 59 UG/DL 37-145 UNLESS OT HERWISE code = 2222) INDICATED, ALL TESTING PERFORMED ATCLI NICAL PATHOLOGY LABOR [facility] [address] [facility] [place] [address] RACH SHARP DIRECTOR: Mariana LOAIZAIA NUMBER [id number] CAP ACCREDITATION N O. [id number] HEMOGLOBIN [id number] 00:00:00 Test Item Value Reference Range Interpretation Comments HEMOGLOBIN A1c (test code = 60084) 8.4 % HEMOGLOBIN [id number] 00:00:00 Test Item Value Reference Range Interpretation Comments HEMOGLOBIN A1c (test code = 08455) 8.4 % COMPREHENSIVE METABOLIC [id number] 00:00:00 Test Item Value Reference Range Interpretation Comments GLUCOSE (test code = 2217) 141 MG/DL BUN (test code = 2208) 31 MG/DL CREATININE (test code = 2214) 1.07 MG/DL eGFR (2020 CKD-EPI) (test code 59 ML/MIN/1.73 = 47018) CALC BUN/CREAT (test code = 29 RATIO 2235) SODIUM (test code = 2231) 141 MEQ/L POTASSIUM (test code = 2228) 4.7 MEQ/L CHLORIDE (test code = 2215) 99 MEQ/L CARBON DIOXIDE (test code = 26 MEQ/L 2205) CALCIUM (test code = 220) 8.8 MG/DL PROTEIN, TOTAL (test code = 8.0 G/DL 2228) ALBUMIN (test code = 220) 4.5 G/DL CALC GLOBULIN (test code = 3.5 G/DL 2239) CALC A/G RATIO (test code = 1.3 RATIO 4) BILIRUBIN, TOTAL (test code = 0.4 MG/DL 2206) ALKALINE PHOSPHATASE (test 67 U/L code = 2204) AST (test code = 2218) 49 U/L ALT (test code = 2219) 41 U/L LIPID [id number] 00:00:00 Test Item Value Reference Range Interpretation Comments CHOLESTEROL (test code = 2210) 113 MG/DL TRIGLYCERIDES (test code = 2232) 165 MG/DL HDL CHOLESTEROL (test code = 2220) 39 MG/DL CALC LDL CHOL (test code = 2237) 50 MG/DL RISK RATIO LDL/HDL (test code = 1.28 RATIO 2238) [id number] 00:00:00 Test Item Value Reference Range Interpretation Comments TSH, THIRD GENERATION (test code 0.190 UIU/ML = 2821) [id number] 00:00:00 Test Item Value Reference Range Interpretation Comments TSH, THIRD GENERATION (test code 0.190 UIU/ML = 2821) IRON, [id number] 00:00:00 Test Item Value Reference Range Interpretation Comments IRON, SERUM (test code = 2222) 59 UG/DL HEMOGLOBIN [id number] 00:00:00 Test Item Value Reference Range Interpretation Comments HEMOGLOBIN A1c (test code = 17938) 8.4 % HEMOGLOBIN [id number] 00:00:00 Test Item Value Reference Range Interpretation Comments HEMOGLOBIN A1c (test code = 27385) 8.4 % COMPREHENSIVE METABOLIC [id number] 00:00:00 Test Item Value Reference Range Interpretation Comments GLUCOSE (test code = 2217) 141 MG/DL BUN (test code = 2208) 31 MG/DL CREATININE (test code = 2214) 1.07 MG/DL eGFR (2020 CKD-EPI) (test code 59 ML/MIN/1.73 = 89973) CALC BUN/CREAT (test code = 29 RATIO 2235) SODIUM (test code = 223) 141 MEQ/L POTASSIUM (test code = 2228) [...] = 2204) AST (test code = 2218) 49 U/L ALT (test code = 2219) 41 U/L LIPID [id number] 00:00:00 Test Item Value Reference Range Interpretation Comments CHOLESTEROL (test code = 2210) 113 MG/DL TRIGLYCERIDES (test code = 2232) 165 MG/DL HDL CHOLESTEROL (test code = 2220) 39 MG/DL CALC LDL CHOL (test code = 2237) 50 MG/DL RISK RATIO LDL/HDL (test code = 1.28 RATIO 2238) [id number] 00:00:00 Test Item Value Reference Range Interpretation Comments TSH, THIRD GENERATION (test code 0.190 UIU/ML = 2821) [id number] 00:00:00 Test Item Value Reference Range Interpretation Comments TSH, THIRD GENERATION (test code 0.190 UIU/ML = 2821) IRON, [id number] 00:00:00 Test Item Value Reference Range Interpretation Comments IRON, SERUM (test code = 2) 59 UG/DL HEMOGLOBIN [id number] 00:00:00 Test Item Value Reference Range Interpretation Comments HEMOGLOBIN A1c (test code = 31094) 8.4 % HEMOGLOBIN [id number] 00:00:00 Test Item Value Reference Range Interpretation Comments HEMOGLOBIN A1c (test code = 49114) 8.4 % HEMOGLOBIN [id number] 00:00:00 Test Item Value Reference Range Interpretation Comments HEMOGLOBIN A1c (test code = 10609) 8.4 % COMPREHENSIVE METABOLIC [id number] 00:00:00 Test Item Value Reference Range Interpretation Comments GLUCOSE (test code = 2217) 141 MG/DL BUN (test code = 2208) 31 MG/DL CREATININE (test code = 2214) 1.07 MG/DL eGFR (2020 CKD-EPI) (test code 59 ML/MIN/1.73 = 63616) CALC BUN/CREAT (test code = 29 RATIO [...] CALC GLOBULIN (test code = 3.5 G/DL 0) CALC A/G RATIO (test code = 1.3 RATIO 4) BILIRUBIN, TOTAL (test code = 0.4 MG/DL 2206) ALKALINE PHOSPHATASE (test 67 U/L code = 2204) AST (test code = 2218) 49 U/L ALT (test code = 2219) 41 U/L COMPREHENSIVE METABOLIC [id number] 00:00:00 Test Item Value Reference Range Interpretation Comments GLUCOSE (test code = 2217) 141 MG/DL BUN (test code = 2208) 31 MG/DL CREATININE (test code = 2214) 1.07 MG/DL eGFR (2020 CKD-EPI) (test code 59 ML/MIN/1.73 = 63743) CALC BUN/CREAT (test code = 29 RATIO [...] A/G RATIO (test code = 1.3 RATIO 4) BILIRUBIN, TOTAL (test code = 0.4 MG/DL 2206) ALKALINE PHOSPHATASE (test 67 U/L code = 2204) AST (test code = 2218) 49 U/L ALT (test code = 2219) 41 U/L LIPID [id number] 00:00:00 Test Item Value Reference Range Interpretation Comments CHOLESTEROL (test code = 2210) 113 MG/DL TRIGLYCERIDES (test code = 2232) 165 MG/DL HDL CHOLESTEROL (test code = 2220) 39 MG/DL CALC LDL CHOL (test code = 2237) 50 MG/DL RISK RATIO LDL/HDL (test code = 1.28 RATIO 2238) LIPID [id number] 00:00:00 Test Item Value Reference Range Interpretation Comments CHOLESTEROL (test code = 2210) 113 MG/DL TRIGLYCERIDES (test code = 2232) 165 MG/DL HDL CHOLESTEROL (test code = 2220) 39 MG/DL CALC LDL CHOL (test code = 2237) 50 MG/DL RISK RATIO LDL/HDL (test code = 1.28 RATIO 2238) [id number] 00:00:00 Test Item Value Reference Range Interpretation Comments TSH, THIRD GENERATION (test code 0.190 UIU/ML = 2821) [id number] 00:00:00 Test Item Value Reference Range Interpretation Comments TSH, THIRD GENERATION (test code 0.190 UIU/ML = 2821) [id number] 00:00:00 Test Item Value Reference Range Interpretation Comments TSH, THIRD GENERATION (test code 0.190 UIU/ML = 2821) IRON, [id number] 00:00:00 Test Item Value Reference Range Interpretation Comments IRON, SERUM (test code = 2221) 59 UG/DL IRON, [id number] 00:00:00 Test Item Value Reference Range Interpretation Comments IRON, SERUM (test code = 2222) 59 UG/DL ALBUMIN/CREATININE RATIO, URINE, [id number] 05:57:19 Test Item Value Reference Range Interpretation Comments CREATININE, URINE, 212.0 MG/DL NOT ESTAB CONC. (test code = 2072) ALBUMIN, URINE, 16.0 MG/DL Note: Test name is RANDOM (test code changed to Urine Albumin = 70312) from [employer] in in accordance with ADA and NKF Guidelines, and Albumin/Creatin ine ratio reference inter jamshid reflects those Guidelines. Jameel lytic methodology is unchanged. No r eference interval for Ra ndom Urine Albumin i s available. CALC 75 MG/G <30 H UNLESS OTHERWI SE ALBUMIN/CREAT, RND INDICATED , ALL TESTING (test code = PERFORMED ATCLI NICAL 91122) PATHOLOGY LABOR [id number] [address] [place] [address] 4 LABORATORY DIRE CTOR: LILLI SIERRA M.D. CLIA NUMBER [id number] [place] [id number] HEMOGLOBIN [id number] 04:12:15 Test Item Value Reference Range Interpretation Comments HEMOGLOBIN A1c (test 9.1 % 4.2-5.6 H [employer]IC AN DIABETES code = 81136) ASSOCIATION IDELINES FOR HGB A1C: PREDIABETES/INC REASED [...] ATE TESTING OR LABORATORY C ONSULTATION. HEMOGLOBIN [id number] 00:00:00 Test Item Value Reference Range Interpretation Comments HEMOGLOBIN A1c (test code = 61300) 9.1 % HEMOGLOBIN [id number] 00:00:00 Test Item Value Reference Range Interpretation Comments HEMOGLOBIN A1c (test code = 21482) 9.1 % MICROALBUMIN/CREATININE, RANDOM AND [id number] 00:00:00 Test Item Value Reference Range Interpretation Comments CREATININE, URINE, CONC. (test 212.0 MG/DL code = 2072) ALBUMIN, URINE, RANDOM (test code 16.0 MG/DL = 65579) CALC ALBUMIN/CREAT, RND (test 75 MG/G code = 93132) HEMOGLOBIN [id number] 00:00:00 Test Item Value Reference Range Interpretation Comments HEMOGLOBIN A1c (test code = 25209) 9.1 % HEMOGLOBIN [id number] 00:00:00 Test Item Value Reference Range Interpretation Comments HEMOGLOBIN A1c (test code = 72228) 9.1 % MICROALBUMIN/CREATININE, RANDOM AND [id number] 00:00:00 Test Item Value Reference Range Interpretation Comments CREATININE, URINE, CONC. (test 212.0 MG/DL code = 2072) ALBUMIN, URINE, RANDOM (test code 16.0 MG/DL = 79520) CALC ALBUMIN/CREAT, RND (test 75 MG/G code = 78921) HEMOGLOBIN [id number] 00:00:00 Test Item Value Reference Range Interpretation Comments HEMOGLOBIN A1c (test code = 39506) 9.1 % HEMOGLOBIN [id number] 00:00:00 Test Item Value Reference Range Interpretation Comments HEMOGLOBIN A1c (test code = 59412) 9.1 % HEMOGLOBIN [id number] 00:00:00 Test Item Value Reference Range Interpretation Comments HEMOGLOBIN A1c (test code = 48477) 9.1 % MICROALBUMIN/CREATININE, RANDOM AND [id number] 00:00:00 Test Item Value Reference Range Interpretation Comments CREATININE, URINE, CONC. (test 212.0 MG/DL code = 2072) ALBUMIN, URINE, RANDOM (test code 16.0 MG/DL = 13658) CALC ALBUMIN/CREAT, RND (test 75 MG/G code = 72696) MICROALBUMIN/CREATININE, RANDOM AND [id number] 00:00:00 Test Item Value Reference Range Interpretation Comments CREATININE, URINE, CONC. (test 212.0 MG/DL code = 2072) ALBUMIN, URINE, RANDOM (test code 16.0 MG/DL = 45432) CALC ALBUMIN/CREAT, RND (test 75 MG/G code = 71467) PATHOLOGIST SMEAR [id number] 00:00:00 Test Item Value Reference Range Interpretation Comments DIAGNOSIS: (test code = 8200) (NOTE) COMMENTS: (test code = 8205) (NOTE) MICROSCOPIC DESCRIPTION: (test (NOTE) code = 8210) PATHOLOGIST: (test code = 8250) (NOTE) CPT: (test code = 8400) 95839 WBC (test code = 1001) 2.7 K/UL [...] NUCLEATED RBCS (test code = 0.00 K/UL 09201) COMMENTS (test code = 1016) (NOTE) PATHOLOGIST SMEAR [id number] 00:00:00 Test Item Value Reference Range Interpretation Comments DIAGNOSIS: (test code = 8200) (NOTE) COMMENTS: (test code = 8205) (NOTE) MICROSCOPIC DESCRIPTION: (test (NOTE) code = 8210) PATHOLOGIST: (test code = 8250) (NOTE) CPT: (test code = 8400) 13761 WBC (test code = 1001) 2.7 K/UL [...] NUCLEATED RBCS (test code = 0.00 K/UL 32851) COMMENTS (test code = 1016) (NOTE) PATHOLOGIST SMEAR [id number] 00:00:00 Test Item Value Reference Range Interpretation Comments DIAGNOSIS: (test code = 8200) (NOTE) COMMENTS: (test code = 8205) (NOTE) MICROSCOPIC DESCRIPTION: (test (NOTE) code = 8210) PATHOLOGIST: (test code = 8250) (NOTE) CPT: (test code = 8400) 36566 WBC (test code = 1001) 2.7 K/UL [...] NUCLEATED RBCS (test code = 0.00 K/UL 33285) COMMENTS (test code = 1016) (NOTE) PATHOLOGIST SMEAR [id number] 00:00:00 Test Item Value Reference Range Interpretation Comments DIAGNOSIS: (test code = 8200) (NOTE) COMMENTS: (test code = 8205) (NOTE) MICROSCOPIC DESCRIPTION: (test (NOTE) code = 8210) PATHOLOGIST: (test code = 8250) (NOTE) CPT: (test code = 8400) 09924 WBC (test code = 1001) 2.7 K/UL [...] NUCLEATED RBCS (test code = 0.00 K/UL 72729) COMMENTS (test code = 1016) (NOTE) [id number] 00:00:00 Test Item Value Reference Range Interpretation Comments FERRITIN (test code = 2074) 42 NG/ML [id number] 00:00:00 Test Item Value Reference Range Interpretation Comments TRANSFERRIN (test code = 4936) 281 MG/DL IRON BINDING CAPACITY AND IRON AND % [id number] 00:00:00 Test Item Value Reference Range Interpretation Comments IRON, SERUM (test code = 2) 28 UG/DL UNSATURATED IBC (test code = 87444) 315 UG/DL CALC TOTAL IBC (test code = 2076) 343 UG/DL CALC % IRON SAT (test code = 2078) 8 % PROTIME AND [id number] 00:00:00 Test Item Value Reference Range Interpretation Comments PROTHROMBIN TIME (PT) (test code 14.8 SECONDS = 1402) INR (test code = 99313) 1.1 PTT (test code = 1403) 35.8 SECONDS RHEUMATOID FACTOR, [id number] 00:00:00 Test Item Value Reference Range Interpretation Comments RHEUMATOID FACTOR, QUANT (test code <10 IU/ML = 3502) RHEUMATOID FACTOR, [id number] 00:00:00 Test Item Value Reference Range Interpretation Comments RHEUMATOID FACTOR, QUANT (test code <10 IU/ML = 3502) CCP [id number] 00:00:00 Test Item Value Reference Range Interpretation Comments CCP IgG (test code = 33064) <0.5 U/ML CCP [id number] 00:00:00 Test Item Value Reference Range Interpretation Comments CCP IgG (test code = 19889) <0.5 U/ML ASH (SM) [id number] 00:00:00 Test Item Value Reference Range Interpretation Comments ASH (Sm) ANTIBODY (test code = <0.2 AI 60181) DNA DS [id number] 00:00:00 Test Item Value Reference Range Interpretation Comments dsDNA ANTIBODY (test code = 4287) 1.0 IU/ML [id number] 00:00:00 Test Item Value Reference Range Interpretation Comments FERRITIN (test code = 2074) 42 NG/ML [id number] 00:00:00 Test Item Value Reference Range Interpretation Comments TRANSFERRIN (test code = 4936) 281 MG/DL IRON BINDING CAPACITY AND IRON AND % [id number] 00:00:00 Test Item Value Reference Range Interpretation Comments IRON, SERUM (test code = 2222) 28 UG/DL UNSATURATED IBC (test code = ) 315 UG/DL CALC TOTAL IBC (test code = 2076) 343 UG/DL CALC % IRON SAT (test code = 2078) 8 % PROTIME AND [id number] 00:00:00 Test Item Value Reference Range Interpretation Comments PROTHROMBIN TIME (PT) (test code 14.8 SECONDS = 1402) INR (test code = 26757) 1.1 PTT (test code = 1403) 35.8 SECONDS RHEUMATOID FACTOR, [id number] 00:00:00 Test Item Value Reference Range Interpretation Comments RHEUMATOID FACTOR, QUANT (test code <10 IU/ML = 3502) RHEUMATOID FACTOR, [id number] 00:00:00 Test Item Value Reference Range Interpretation Comments RHEUMATOID FACTOR, QUANT (test code <10 IU/ML = 3502) CCP [id number] 00:00:00 Test Item Value Reference Range Interpretation Comments CCP IgG (test code = 26525) <0.5 U/ML CCP [id number] 00:00:00 Test Item Value Reference Range Interpretation Comments CCP IgG (test code = 82897) <0.5 U/ML ASH (SM) [id number] 00:00:00 Test Item Value Reference Range Interpretation Comments ASH (Sm) ANTIBODY (test code = <0.2 AI 45361) DNA DS [id number] 00:00:00 Test Item Value Reference Range Interpretation Comments dsDNA ANTIBODY (test code = 4287) 1.0 IU/ML [id number] 00:00:00 Test Item Value Reference Range Interpretation Comments FERRITIN (test code = 2074) 42 NG/ML [id number] 00:00:00 Test Item Value Reference Range Interpretation Comments FERRITIN (test code = 2074) 42 NG/ML [id number] 00:00:00 Test Item Value Reference Range Interpretation Comments TRANSFERRIN (test code = 4936) 281 MG/DL [id number] 00:00:00 Test Item Value Reference Range Interpretation Comments TRANSFERRIN (test code = 4936) 281 MG/DL IRON BINDING CAPACITY AND IRON AND % [id number] 00:00:00 Test Item Value Reference Range Interpretation Comments IRON, SERUM (test code = 2221) 28 UG/DL UNSATURATED IBC (test code = ) 315 UG/DL CALC TOTAL IBC (test code = 2076) 343 UG/DL CALC % IRON SAT (test code = 2078) 8 % IRON BINDING CAPACITY AND IRON AND % [id number] 00:00:00 Test Item Value Reference Range Interpretation Comments IRON, SERUM (test code = 222) 28 UG/DL UNSATURATED IBC (test code = ) 315 UG/DL CALC TOTAL IBC (test code = 2076) 343 UG/DL CALC % IRON SAT (test code = 2078) 8 % PROTIME AND [id number] 00:00:00 Test Item Value Reference Range Interpretation Comments PROTHROMBIN TIME (PT) (test code 14.8 SECONDS = 1402) INR (test code = 14923) 1.1 PTT (test code = 1403) 35.8 SECONDS PROTIME AND [id number] 00:00:00 Test Item Value Reference Range Interpretation Comments PROTHROMBIN TIME (PT) (test code 14.8 SECONDS = 1402) INR (test code = 59491) 1.1 PTT (test code = 1403) 35.8 SECONDS RHEUMATOID FACTOR, [id number] 00:00:00 Test Item Value Reference Range Interpretation Comments RHEUMATOID FACTOR, QUANT (test code <10 IU/ML = 3502) RHEUMATOID FACTOR, [id number] 00:00:00 Test Item Value Reference Range Interpretation Comments RHEUMATOID FACTOR, QUANT (test code <10 IU/ML = 3502) RHEUMATOID FACTOR, [id number] 00:00:00 Test Item Value Reference Range Interpretation Comments RHEUMATOID FACTOR, QUANT (test code <10 IU/ML = 3502) CCP [id number] 00:00:00 Test Item Value Reference Range Interpretation Comments CCP IgG (test code = 49768) <0.5 U/ML CCP [id number] 00:00:00 Test Item Value Reference Range Interpretation Comments CCP IgG (test code = 91274) <0.5 U/ML CCP [id number] 00:00:00 Test Item Value Reference Range Interpretation Comments CCP IgG (test code = 67938) <0.5 U/ML ASH (SM) [id number] 00:00:00 Test Item Value Reference Range Interpretation Comments ASH (Sm) ANTIBODY (test code = <0.2 AI 55340) ASH (SM) [id number] 00:00:00 Test Item Value Reference Range Interpretation Comments ASH (Sm) ANTIBODY (test code = <0.2 AI 27881) DNA DS [id number] 00:00:00 Test Item Value Reference Range Interpretation Comments dsDNA ANTIBODY (test code = 4287) 1.0 IU/ML DNA DS [id number] 00:00:00 Test Item Value Reference Range Interpretation Comments dsDNA ANTIBODY (test code = 4287) 1.0 IU/ML CULTURE, [id number] 00:00:00 Test Item Value Reference Range Interpretation Comments CULTURE, URINE (test SPECIMEN NUMBER: code = 85449) [id number] CULTURE, [id number] 00:00:00 Test Item Value Reference Range Interpretation Comments CULTURE, URINE (test SPECIMEN NUMBER: code = 34823) [id number] CULTURE, [id number] 00:00:00 Test Item Value Reference Range Interpretation Comments CULTURE, URINE (test SPECIMEN NUMBER: code = 72021) [id number] CULTURE, [id number] 00:00:00 Test Item Value Reference Range Interpretation Comments CULTURE, URINE (test SPECIMEN NUMBER: code = 27421) [id number] JAMEEL TITER AND PATTERN [REFLEX]2021-01-17 00:00:00 Test Item Value Reference Range Interpretation Comments PATTERN (test code = SPECKLED 08850) JAMEEL TITER (test code = 1:640 TITER 3550) PATTERN 2 (test code = NOT DETECTED 48594) JAMEEL TITER 2 (test code = NOT DETECTED TITER 18740) PATTERN 3 (test code = NOT DETECTED 44327) JAMEEL TITER 3 (test code = NOT DETECTED TITER 98898) METHOD (test code = 94236) (NOTE) JAMEEL TITER AND PATTERN [REFLEX]2021-01-17 00:00:00 Test Item Value Reference Range Interpretation Comments PATTERN (test code = SPECKLED 14615) JAMEEL TITER (test code = 1:640 TITER 3550) PATTERN 2 (test code = NOT DETECTED 13794) JAMEEL TITER 2 (test code = NOT DETECTED TITER 63934) PATTERN 3 (test code = NOT DETECTED 61061) JAMEEL TITER 3 (test code = NOT DETECTED TITER 69348) METHOD (test code = 01059) (NOTE) JAMEEL TITER AND PATTERN [REFLEX]2021-01-17 00:00:00 Test Item Value Reference Range Interpretation Comments PATTERN (test code = SPECKLED 94489) JAEMEL TITER (test code = 1:640 TITER 3550) PATTERN 2 (test code = NOT DETECTED 58615) JAMEEL TITER 2 (test code = NOT DETECTED TITER 92256) PATTERN 3 (test code = NOT DETECTED 27464) JAMEEL TITER 3 (test code = NOT DETECTED TITER 08041) METHOD (test code = 59115) (NOTE) CBC W/AUTO [id number] 00:00:00 Test Item Value Reference Range Interpretation [...] NUCLEATED RBCS (test code = 0.00 K/UL 05156) CBC W/AUTO [id number] 00:00:00 Test Item Value Reference Range Interpretation [...] NUCLEATED RBCS (test code = 0.00 K/UL 67111) COMPREHENSIVE METABOLIC [id number] 00:00:00 Test Item Value Reference Range Interpretation Comments GLUCOSE (test code = 2217) 139 MG/DL BUN (test code = 2208) 21 MG/DL CREATININE (test code = 2214) 0.83 MG/DL eGFR AMER. (test code 88 ML/MIN/1.73 = 78133) eGFR NON- AMER. (test 76 ML/MIN/1.73 code = 87693) CALC BUN/CREAT (test code = 25 RATIO 2235) SODIUM (test code = 2231) 140 MEQ/L POTASSIUM (test code = 2228) 4.8 MEQ/L CHLORIDE (test code = 2215) 102 MEQ/L CARBON DIOXIDE (test code = 25 MEQ/L 2206) CALCIUM (test code = 2209) 9.2 MG/DL PROTEIN, TOTAL (test code = 7.2 G/DL 2228) ALBUMIN (test code = 2201) 3.6 G/DL CALC GLOBULIN (test code = 3.6 G/DL 2240) CALC A/G RATIO (test code = 1.0 RATIO 2234) BILIRUBIN, TOTAL (test code = 0.6 MG/DL 2207) ALKALINE PHOSPHATASE (test 101 U/L code = 2204) AST (test code = 2218) 30 U/L ALT (test code = 2219) 23 U/L [id number] 00:00:00 Test Item Value Reference Range Interpretation Comments NT-proBNP (test code = 12919) 247 PG/ML [id number] 00:00:00 Test Item Value Reference Range Interpretation Comments NT-proBNP (test code = 43253) 247 PG/ML JAMEEL (ANTI-NUCLEAR AB) WITH REFLEX [id number] 00:00:00 Test Item Value Reference Range Interpretation Comments ANTI-NUCLEAR ANTIBODIES (test code = POSITIVE 3506) C-REACTIVE [id number] 00:00:00 Test Item Value Reference Range Interpretation Comments C-REACTIVE PROTEIN (test code = 1.1 MG/DL 3513) SEDIMENTATION [id number] 00:00:00 Test Item Value Reference Range Interpretation Comments SEDIMENTATION RATE (test code = 88 MM/HOUR 1017) [id number] 00:00:00 Test Item Value Reference Range Interpretation Comments D-DIMER (test code = 1405) 0.77 UG/MLFEU CBC W/AUTO [id number] 00:00:00 Test Item Value Reference Range Interpretation [...] NUCLEATED RBCS (test code = 0.00 K/UL 10329) CBC W/AUTO [id number] 00:00:00 Test Item Value Reference Range Interpretation [...] NUCLEATED RBCS (test code = 0.00 K/UL 71940) COMPREHENSIVE METABOLIC [id number] 00:00:00 Test Item Value Reference Range Interpretation Comments GLUCOSE (test code = 2217) 139 MG/DL BUN (test code = 2208) 21 MG/DL CREATININE (test code = 2214) 0.83 MG/DL eGFR AMER. (test code 88 ML/MIN/1.73 = 06154) eGFR NON- AMER. (test 76 ML/MIN/1.73 code = 31967) CALC BUN/CREAT (test code = 25 RATIO 2235) SODIUM (test code = 2231) 140 MEQ/L POTASSIUM (test code = 2228) 4.8 MEQ/L CHLORIDE (test code = 2215) 102 MEQ/L CARBON DIOXIDE (test code = 25 MEQ/L 2206) CALCIUM (test code = 2209) 9.2 MG/DL PROTEIN, TOTAL (test code = 7.2 G/DL 222) ALBUMIN (test code = 2201) 3.6 G/DL CALC GLOBULIN (test code = 3.6 G/DL 2240) CALC A/G RATIO (test code = 1.0 RATIO 2234) BILIRUBIN, TOTAL (test code = 0.6 MG/DL 2206) ALKALINE PHOSPHATASE (test 101 U/L code = 2204) AST (test code = 2218) 30 U/L ALT (test code = 2219) 23 U/L [id number] 00:00:00 Test Item Value Reference Range Interpretation Comments NT-proBNP (test code = 20865) 247 PG/ML [id number] 00:00:00 Test Item Value Reference Range Interpretation Comments NT-proBNP (test code = 44052) 247 PG/ML JAMEEL (ANTI-NUCLEAR AB) WITH REFLEX [id number] 00:00:00 Test Item Value Reference Range Interpretation Comments ANTI-NUCLEAR ANTIBODIES (test code = POSITIVE 3506) C-REACTIVE [id number] 00:00:00 Test Item Value Reference Range Interpretation Comments C-REACTIVE PROTEIN (test code = 1.1 MG/DL 3513) SEDIMENTATION [id number] 00:00:00 Test Item Value Reference Range Interpretation Comments SEDIMENTATION RATE (test code = 88 MM/HOUR 1017) [id number] 00:00:00 Test Item Value Reference Range Interpretation Comments D-DIMER (test code = 1405) 0.77 UG/MLFEU CBC W/AUTO [id number] 00:00:00 Test Item Value Reference Range Interpretation [...] NUCLEATED RBCS (test code = 0.00 K/UL 28421) CBC W/AUTO [id number] 00:00:00 Test Item Value Reference Range Interpretation [...] NUCLEATED RBCS (test code = 0.00 K/UL 39785) CBC W/AUTO [id number] 00:00:00 Test Item Value Reference Range Interpretation [...] NUCLEATED RBCS (test code = 0.00 K/UL 50696) COMPREHENSIVE METABOLIC [id number] 00:00:00 Test Item Value Reference Range Interpretation Comments GLUCOSE (test code = 2217) 139 MG/DL BUN (test code = 2208) 21 MG/DL CREATININE (test code = 2214) 0.83 MG/DL eGFR AMER. (test code 88 ML/MIN/1.73 = 73139) eGFR NON- AMER. (test 76 ML/MIN/1.73 code = 08853) CALC BUN/CREAT (test code = 25 RATIO 2235) SODIUM (test code = 2231) 140 MEQ/L POTASSIUM (test code = 2228) 4.8 MEQ/L CHLORIDE (test code = 2215) 102 MEQ/L CARBON DIOXIDE (test code = 25 MEQ/L 220) CALCIUM (test code = 2209) 9.2 MG/DL PROTEIN, TOTAL (test code = 7.2 G/DL 2228) ALBUMIN (test code = 2201) 3.6 G/DL CALC GLOBULIN (test code = 3.6 G/DL 2240) CALC A/G RATIO (test code = 1.0 RATIO 223) BILIRUBIN, TOTAL (test code = 0.6 MG/DL 2206) ALKALINE PHOSPHATASE (test 101 U/L code = 2204) AST (test code = 2218) 30 U/L ALT (test code = 2219) 23 U/L COMPREHENSIVE METABOLIC [id number] 00:00:00 Test Item Value Reference Range Interpretation Comments GLUCOSE (test code = 2217) 139 MG/DL BUN (test code = 2208) 21 MG/DL CREATININE (test code = 2214) 0.83 MG/DL eGFR AMER. (test code 88 ML/MIN/1.73 = 25424) eGFR NON- AMER. (test 76 ML/MIN/1.73 code = 60714) CALC BUN/CREAT (test code = 25 RATIO 2235) SODIUM (test code = 2231) 140 MEQ/L POTASSIUM (test code = 2228) 4.8 MEQ/L CHLORIDE (test code = 2215) 102 MEQ/L CARBON DIOXIDE (test code = 25 MEQ/L 2206) CALCIUM (test code = 2209) 9.2 MG/DL PROTEIN, TOTAL (test code = 7.2 G/DL 2228) ALBUMIN (test code = 2201) 3.6 G/DL CALC GLOBULIN (test code = 3.6 G/DL 2240) CALC A/G RATIO (test code = 1.0 RATIO 2234) BILIRUBIN, TOTAL (test code = 0.6 MG/DL 2207) ALKALINE PHOSPHATASE (test 101 U/L code = 2204) AST (test code = 2218) 30 U/L ALT (test code = 2219) 23 U/L [id number] 00:00:00 Test Item Value Reference Range Interpretation Comments NT-proBNP (test code = 70219) 247 PG/ML [id number] 00:00:00 Test Item Value Reference Range Interpretation Comments NT-proBNP (test code = 81414) 247 PG/ML [id number] 00:00:00 Test Item Value Reference Range Interpretation Comments NT-proBNP (test code = 54210) 247 PG/ML JAMEEL (ANTI-NUCLEAR AB) WITH REFLEX [id number] 00:00:00 Test Item Value Reference Range Interpretation Comments ANTI-NUCLEAR ANTIBODIES (test code = POSITIVE 3506) JAMEEL (ANTI-NUCLEAR AB) WITH REFLEX [id number] 00:00:00 Test Item Value Reference Range Interpretation Comments ANTI-NUCLEAR ANTIBODIES (test code = POSITIVE 3506) C-REACTIVE [id number] 00:00:00 Test Item Value Reference Range Interpretation Comments C-REACTIVE PROTEIN (test code = 1.1 MG/DL 3513) C-REACTIVE [id number] 00:00:00 Test Item Value Reference Range Interpretation Comments C-REACTIVE PROTEIN (test code = 1.1 MG/DL 3513) SEDIMENTATION [id number] 00:00:00 Test Item Value Reference Range Interpretation Comments SEDIMENTATION RATE (test code = 88 MM/HOUR 1017) SEDIMENTATION [id number] 00:00:00 Test Item Value Reference Range Interpretation Comments SEDIMENTATION RATE (test code = 88 MM/HOUR 1017) [id number] 00:00:00 Test Item Value Reference Range Interpretation Comments D-DIMER (test code = 1405) 0.77 UG/MLFEU [id number] 00:00:00 Test Item Value Reference Range Interpretation Comments D-DIMER (test code = 1405) 0.77 UG/MLFEU HEMOGLOBIN [id number] 00:00:00 Test Item Value Reference Range Interpretation Comments HEMOGLOBIN A1c (test code = 07178) 7.5 % HEMOGLOBIN [id number] 00:00:00 Test Item Value Reference Range Interpretation Comments HEMOGLOBIN A1c (test code = 33732) 7.5 % HEMOGLOBIN [id number] 00:00:00 Test Item Value Reference Range Interpretation Comments HEMOGLOBIN A1c (test code = 80038) 7.5 % HEMOGLOBIN [id number] 00:00:00 Test Item Value Reference Range Interpretation Comments HEMOGLOBIN A1c (test code = 99381) 7.5 % HEMOGLOBIN [id number] 00:00:00 Test Item Value Reference Range Interpretation Comments HEMOGLOBIN A1c (test code = 42127) 7.5 % HEMOGLOBIN [id number] 00:00:00 Test Item Value Reference Range Interpretation Comments HEMOGLOBIN A1c (test code = 09994) 7.5 % HEMOGLOBIN [id number] 00:00:00 Test Item Value Reference Range Interpretation Comments HEMOGLOBIN A1c (test code = 40612) 7.5 % CULTURE, [id number] 00:00:00 Test Item Value Reference Range Interpretation Comments CULTURE, URINE (test SPECIMEN NUMBER: code = 74347) [id number] CULTURE, [id number] 00:00:00 Test Item Value Reference Range Interpretation Comments CULTURE, URINE (test SPECIMEN NUMBER: code = 72930) [id number] CULTURE, [id number] 00:00:00 Test Item Value Reference Range Interpretation Comments CULTURE, URINE (test SPECIMEN NUMBER: code = 93940) [id number] CULTURE, [id number] 00:00:00 Test Item Value Reference Range Interpretation Comments CULTURE, URINE (test SPECIMEN NUMBER: code = 34445) [id number] HEMOGLOBIN [id number] 00:00:00 Test Item Value Reference Range Interpretation Comments HEMOGLOBIN A1c (test code = 41968) 8.6 % HEMOGLOBIN [id number] 00:00:00 Test Item Value Reference Range Interpretation Comments HEMOGLOBIN A1c (test code = 40557) 8.6 % LIPID [id number] 00:00:00 Test Item Value Reference Range Interpretation Comments CHOLESTEROL (test code = 2210) 104 MG/DL TRIGLYCERIDES (test code = 2232) 164 MG/DL HDL CHOLESTEROL (test code = 2220) 39 MG/DL CALC LDL CHOL (test code = 2237) 41 MG/DL RISK RATIO LDL/HDL (test code = 1.05 RATIO 2238) COMPREHENSIVE METABOLIC [id number] 00:00:00 Test Item Value Reference Range Interpretation Comments GLUCOSE (test code = 2217) 330 MG/DL BUN (test code = 2208) 11 MG/DL CREATININE (test code = 2214) 0.84 MG/DL eGFR AMER. (test code 87 ML/MIN/1.73 = 60337) eGFR NON- AMER. (test 75 ML/MIN/1.73 code = 88737) CALC BUN/CREAT (test code = 13 RATIO [...] A/G RATIO (test code = 1.0 RATIO 4) BILIRUBIN, TOTAL (test code = 0.4 MG/DL 2206) ALKALINE PHOSPHATASE (test 106 U/L code = 2204) AST (test code = 2218) 44 U/L ALT (test code = 2219) 29 U/L MICROALBUMIN/CREATININE, RANDOM AND [id number] 00:00:00 Test Item Value Reference Range Interpretation Comments CREATININE, URINE, CONC. (test 131.3 MG/DL code = 2071) ALBUMIN, URINE, RANDOM (test code 0.4 MG/DL = 64238) CALC ALBUMIN/CREAT, RND (test 3 MG/G code = 33696) HEMOGLOBIN [id number] 00:00:00 Test Item Value Reference Range Interpretation Comments HEMOGLOBIN A1c (test code = 67064) 8.6 % HEMOGLOBIN [id number] 00:00:00 Test Item Value Reference Range Interpretation Comments HEMOGLOBIN A1c (test code = 75245) 8.6 % LIPID [id number] 00:00:00 Test Item Value Reference Range Interpretation Comments CHOLESTEROL (test code = 2210) 104 MG/DL TRIGLYCERIDES (test code = 2232) 164 MG/DL HDL CHOLESTEROL (test code = 2220) 39 MG/DL CALC LDL CHOL (test code = 2237) 41 MG/DL RISK RATIO LDL/HDL (test code = 1.05 RATIO 2238) COMPREHENSIVE METABOLIC [id number] 00:00:00 Test Item Value Reference Range Interpretation Comments GLUCOSE (test code = 2217) 330 MG/DL BUN (test code = 2208) 11 MG/DL CREATININE (test code = 2214) 0.84 MG/DL eGFR AMER. (test code 87 ML/MIN/1.73 = 25762) eGFR NON- AMER. (test 75 ML/MIN/1.73 code = 13263) CALC BUN/CREAT (test code = 13 RATIO [...] CALC GLOBULIN (test code = 3.9 G/DL 2240) CALC A/G RATIO (test code = 1.0 RATIO 2233) BILIRUBIN, TOTAL (test code = 0.4 MG/DL 2206) ALKALINE PHOSPHATASE (test 106 U/L code = 2204) AST (test code = 2218) 44 U/L ALT (test code = 2219) 29 U/L MICROALBUMIN/CREATININE, RANDOM AND [id number] 00:00:00 Test Item Value Reference Range Interpretation Comments CREATININE, URINE, CONC. (test 131.3 MG/DL code = 2071) ALBUMIN, URINE, RANDOM (test code 0.4 MG/DL = 57250) CALC ALBUMIN/CREAT, RND (test 3 MG/G code = 87355) HEMOGLOBIN [id number] 00:00:00 Test Item Value Reference Range Interpretation Comments HEMOGLOBIN A1c (test code = 46741) 8.6 % HEMOGLOBIN [id number] 00:00:00 Test Item Value Reference Range Interpretation Comments HEMOGLOBIN A1c (test code = 88420) 8.6 % HEMOGLOBIN [id number] 00:00:00 Test Item Value Reference Range Interpretation Comments HEMOGLOBIN A1c (test code = 89455) 8.6 % LIPID [id number] 00:00:00 Test Item Value Reference Range Interpretation Comments CHOLESTEROL (test code = 2210) 104 MG/DL TRIGLYCERIDES (test code = 2232) 164 MG/DL HDL CHOLESTEROL (test code = 2220) 39 MG/DL CALC LDL CHOL (test code = 2237) 41 MG/DL RISK RATIO LDL/HDL (test code = 1.05 RATIO 2238) LIPID [id number] 00:00:00 Test Item Value Reference Range Interpretation Comments CHOLESTEROL (test code = 2210) 104 MG/DL TRIGLYCERIDES (test code = 2232) 164 MG/DL HDL CHOLESTEROL (test code = 2220) 39 MG/DL CALC LDL CHOL (test code = 2237) 41 MG/DL RISK RATIO LDL/HDL (test code = 1.05 RATIO 2238) COMPREHENSIVE METABOLIC [id number] 00:00:00 Test Item Value Reference Range Interpretation Comments GLUCOSE (test code = 2217) 330 MG/DL BUN (test code = 2208) 11 MG/DL CREATININE (test code = 2214) 0.84 MG/DL eGFR AMER. (test code 87 ML/MIN/1.73 = 39996) eGFR NON- AMER. (test 75 ML/MIN/1.73 code = 22412) CALC BUN/CREAT (test code = 13 RATIO [...] A/G RATIO (test code = 1.0 RATIO 2233) BILIRUBIN, TOTAL (test code = 0.4 MG/DL 2206) ALKALINE PHOSPHATASE (test 106 U/L code = 2204) AST (test code = 2218) 44 U/L ALT (test code = 2219) 29 U/L COMPREHENSIVE METABOLIC [id number] 00:00:00 Test Item Value Reference Range Interpretation Comments GLUCOSE (test code = 2217) 330 MG/DL BUN (test code = 2208) 11 MG/DL CREATININE (test code = 2214) 0.84 MG/DL eGFR AMER. (test code 87 ML/MIN/1.73 = 61259) eGFR NON- AMER. (test 75 ML/MIN/1.73 code = 51221) CALC BUN/CREAT (test code = 13 RATIO 5) SODIUM (test code = 2231) 136 MEQ/L [...] A/G RATIO (test code = 1.0 RATIO 2233) BILIRUBIN, TOTAL (test code = 0.4 MG/DL 2206) ALKALINE PHOSPHATASE (test 106 U/L code = 220) AST (test code = 2218) 44 U/L ALT (test code = 2219) 29 U/L MICROALBUMIN/CREATININE, RANDOM AND [id number] 00:00:00 Test Item Value Reference Range Interpretation Comments CREATININE, URINE, CONC. (test 131.3 MG/DL code = 2072) ALBUMIN, URINE, RANDOM (test code 0.4 MG/DL = 18007) CALC ALBUMIN/CREAT, RND (test 3 MG/G code = 19926) MICROALBUMIN/CREATININE, RANDOM AND [id number] 00:00:00 Test Item Value Reference Range Interpretation Comments CREATININE, URINE, CONC. (test 131.3 MG/DL code = 2072) ALBUMIN, URINE, RANDOM (test code 0.4 MG/DL = 69066) CALC ALBUMIN/CREAT, RND (test 3 MG/G code = 08762)
[2021-12-14 15:28] LABS: Urine Blood Negative (Negative); Urine Glucose Negative (Negative); Urine Protein 1+ (Negative); Urine Specific Gravity 1.025 (1.005-1.030); Urine pH 6.5 (5.0-7.0)
[2021-12-14] MEDS ORDERED: CYCLOBENZAPRINE 10 MG TAB ONE (15:44)
[2021-12-14] MEDS ORDERED: KETOROLAC 30 MG/ML INJ ONE (15:45)
--- NOTE | 2021-12-14 16:20 | ER ---
Nurse's Notes [facility] Name: Sita Delgado Age: 61 yrs Sex: Female : 1960 Arrival Date: 12/14/2021 Time: 14:52 Bed External Waiting [facility] MD: Diagnosis: Low back pain Presentation: 12/14 14:56 Chief complaint: Patient states: Low back pain with dysuria for 2 days. States she was kr3 helping her son move yesterday. Coronavirus screen: Vaccine status: Patient reports receiving the 2nd dose of the covid vaccine. Client denies travel out of the [place] in the last 14 days. At this time, the client does not indicate any symptoms associated with coronavirus-19. Ebola Screen: Patient denies travel to an Ebola-affected area in the 21 days before illness onset. Initial Sepsis Screen: Does the patient meet any 2 criteria? HR > 90 bpm. No. Patient's initial sepsis screen is negative. Does the patient have a suspected source of infection? Yes: Dysuria/Frequency/Urgency/UTI. Risk Assessment: Do you want to hurt yourself or someone else? Patient reports no desire to harm self or others. Onset of symptoms was December 13, 2021. 14:56 Method Of Arrival: Ambulatory kr3 14:56 Acuity: KATARINA 3 kr3 Triage Assessment: 14:58 General: Appears uncomfortable, Behavior is calm, cooperative, appropriate for age. kr3 Pain: Complains of pain in back Pain currently is 10 out of 10 on a pain scale. Quality of pain is described as aching. : Reports burning with urination, urinary frequency. Musculoskeletal: Reports pain in back. Historical: - Allergies: 14:57 PENICILLINS; kr3 14:57 Nubain; kr3 14:57 Darvocet-N 100; kr3 - PMHx: 14:57 chronic back pain; diabetes mellitus; Hypertensive disorder; Thyroid problem; Cirrhosis kr3 of liver; - PSHx: 14:57 Appendectomy; vic knee reconstructive sx; carpal tunnel repair; Cholecystectomy; kr3 hysterectomy; - Immunization history:: Client reports receiving the 2nd dose of the Covid vaccine. - Social history:: Smoking status: Patient denies any tobacco usage or history of. Screenin:20 Abuse screen: Denies threats or abuse. Denies injuries from another. Nutritional jh6 screening: No deficits noted. Tuberculosis screening: No symptoms or risk factors identified. Fall Risk None identified. Assessment: 15:20 General: Appears in no apparent distress. comfortable, Behavior is calm, cooperative. jh6 15:20 Pain: Complains of pain in coccyx, left lower back and right lower back Pain currently jh6 is 10 out of 10 on a pain scale. Quality of pain is described as aching, sharp, shooting, Pain began 1 day ago. Is continuous, Alleviated by nothing. Aggravated by increased activity. Neuro: Level of Consciousness is awake, alert, obeys commands, Oriented to person, place, time, situation, [employer] are equal bilaterally Moves all extremities. Gait is steady, Speech is normal, Facial symmetry appears normal, Pupils are PERRLA. Musculoskeletal: Reports pain in coccyx, left lower back and right lower back. 16:15 Reassessment: Patient and/or family updated on plan of care and expected duration. Pain jh6 level reassessed. pt states that pain is slightly better but is requesting something else for pain. states that she normally takes Percocet for pain at home but is out until next week, provider was made aware. Vital Signs: 14:56 BP 149 / 84; Pulse 114; Resp 18; Temp 97.2; Pulse Ox 96% on R/A; Height 5 ft. 2 in. kr3 (157.48 cm); Pain 10/10; 16:30 BP 145 / 80; Pulse 88; Resp 16; Pulse Ox 97% ; Pain 6/10; jh6 ED Course: 14:52 Patient arrived in ED. rg4 14:53 [facility] jl9 14:53 Williams Kenney MD is Attending Physician. jl9 14:57 Triage completed. kr3 14:58 Arm band placed on. kr3 15:14 Katie Ferguson, ANGELIC is Primary Nurse. jh6 15:20 Call light in reach. Side rails up X 1. Adult w/ patient. jh6 15:34 Urine collected: clean catch specimen. jh6 18:02 Patient did not have IV access during this emergency room visit. jh6 Administered Medications: 15:40 Drug: Flexeril (cyclobenzaprine) 10 mg Route: PO; jh6 17:00 Follow up: Response: Pain is decreased jh6 15:40 Drug: Ketorolac 60 mg Route: IM; Site: left gluteus; 6 17:57 Follow up: Response: No adverse reaction 6 17:00 Drug: HYDROcodone-acetaminophen 5 mg-325 mg 1 tabs Route: PO; 6 17:57 Follow up: Response: No adverse reaction [facility] Medication: 15:47 VIS not applicable for this client. [facility] Outcome: 16:19 Discharge ordered by MD. guy 17:00 Discharged to home ambulatory. 6 17:00 Condition: improved 6 17:00 Discharge instructions given to patient, family, Instructed on discharge instructions, follow up and referral plans. Demonstrated understanding of instructions, follow-up care, medications, Prescriptions given X 2. 18:02 Patient left the ED. [facility] Signatures: Kiara Suresh Jennifer RN RN jh6 Rogerio Belle9 Riana Lyons RN RN kr3
--- NOTE | 2021-12-14 16:20 | EDPHYS ---
Physician Documentation [facility] Name: Sita Delgado Age: 61 yrs Sex: Female : 1960 Arrival Date: 12/14/2021 Time: 14:52 Bed External Waiting Private MD: RD Physician Williams Kenney HPI: 12/14 15:41 This 61 yrs old Female presents to ER via Ambulatory with complaints of Lower jl9 back pain s/p helping her son move yesterday. Patient also c/o dysuria x2 days. . 15:41 The patient presents with pain and spasm, tightness. The symptoms are located in the jl9 low back. Onset: The symptoms/episode began/occurred yesterday. The pain does not radiate. Associated signs and symptoms: Pertinent positives: dysuria, Pertinent negatives: abdominal pain, chest pain. The problem was sustained when lifting furniture. Modifying factors: The patient symptoms are alleviated by rest, the patient symptoms are aggravated by bending. Severity of symptoms: in the emergency department the symptoms a " 5" out of "10". The patient has experienced a previous episode. Historical: - Allergies: 14:57 PENICILLINS; kr3 14:57 Nubain; kr3 14:57 Darvocet-N 100; kr3 - PMHx: 14:57 chronic back pain; diabetes mellitus; Hypertensive disorder; Thyroid problem; Cirrhosis kr3 of liver; - PSHx: 14:57 Appendectomy; vic knee reconstructive sx; carpal tunnel repair; Cholecystectomy; kr3 hysterectomy; - Immunization history:: Client reports receiving the 2nd dose of the Covid vaccine. - Social history:: Smoking status: Patient denies any tobacco usage or history of. ROS: 15:42 Constitutional: Negative for fever, chills, and weight loss, Eyes: Negative for injury, jl9 pain, redness, and discharge, ENT: Negative for injury, pain, and discharge, Neck: Negative for injury, pain, and swelling, Cardiovascular: Negative for chest pain, palpitations, and edema, Respiratory: Negative for shortness of breath, cough, wheezing, and pleuritic chest pain, Abdomen/GI: Negative for abdominal pain, nausea, vomiting, diarrhea, and constipation. 15:42 MS/Extremity: Negative for injury and deformity, Skin: Negative for injury, rash, and discoloration, Neuro: Negative for headache, weakness, numbness, tingling, and seizure, Psych: Negative for depression, anxiety, suicide ideation, homicidal ideation, and hallucinations, Allergy/Immunology: Negative for hives, rash, and allergies, Endocrine: Negative for neck swelling, polydipsia, polyuria, polyphagia, and marked weight changes, Hematologic/Lymphatic: Negative for swollen nodes, abnormal bleeding, and unusual bruising. 15:42 Back: Positive for pain with movement. 15:42 : Positive for urinary symptoms, burning with urination. Exam: 15:43 Constitutional: This is a well developed, well nourished patient who is awake, alert, jl9 and in no acute distress. Head/Face: Normocephalic, atraumatic. Eyes: Pupils equal round and reactive to light, extra-ocular motions intact. Lids and lashes normal. Conjunctiva and sclera are non-icteric and not injected. Cornea within normal limits. Periorbital areas with no swelling, redness, or edema. ENT: Mucous membranes moist. Neck: Trachea midline, no thyromegaly or masses palpated, and no cervical lymphadenopathy. Supple, full range of motion without nuchal rigidity, or vertebral point tenderness. No Meningismus. Chest/axilla: Normal chest wall appearance and motion. Nontender with no deformity. No lesions are appreciated. Cardiovascular: Regular rate and rhythm with a normal S1 and S2. No gallops, murmurs, or rubs. Normal PMI, no JVD. No pulse deficits. Respiratory: Lungs have equal breath sounds bilaterally, clear to auscultation and percussion. No rales, rhonchi or wheezes noted. No increased work of breathing, no retractions or nasal flaring. Abdomen/GI: Soft, non-tender, with normal bowel sounds. No distension or tympany. No guarding or rebound. No evidence of tenderness throughout. 15:43 Skin: Warm, dry with normal turgor. Normal color with no rashes, no lesions, and no evidence of cellulitis. MS/ Extremity: Pulses equal, no cyanosis. Neurovascular intact. Full, normal range of motion. Neuro: Awake and alert, GCS 15, oriented to person, place, time, and situation. Cranial nerves II-XII grossly intact. Motor strength 5/5 in all extremities. Sensory grossly intact. Cerebellar exam normal. Normal gait. Psych: Awake, alert, with orientation to person, place and time. Behavior, mood, and affect are within normal limits. 15:43 Back: pain, that is moderate, ROM is painful, normal spinal alignment noted, CVA tenderness, that is mild, vertebral tenderness, is not appreciated, muscle spasm, is appreciated in the lumbar area. Vital Signs: 14:56 BP 149 / 84; Pulse 114; Resp 18; Temp 97.2; Pulse Ox 96% on R/A; Height 5 ft. 2 in. kr3 (157.48 cm); Pain 10/10; 16:30 BP 145 / 80; Pulse 88; Resp 16; Pulse Ox 97% ; Pain 6/10; jh6 MDM: 14:53 Patient medically screened. [facility] 15:43 Data reviewed: vital signs, nurses notes. [facility] 15:44 Counseling: I had a detailed discussion with the patient and/or guardian regarding: the [facility] historical points, exam findings, and any diagnostic results supporting the discharge/admit diagnosis, lab results, the need for outpatient follow up, to return to the emergency department if symptoms worsen or persist or if there are any questions or concerns that arise at home. 12/14 15:28 Order name: Urine Dipstick-Ancillary; Complete Time: 15:33 EDWV 12/14 14:59 Order name: Urine Dipstick-Ancillary (obtain specimen); Complete Time: 15:29 [facility] Administered Medications: 15:40 Drug: Flexeril (cyclobenzaprine) 10 mg Route: PO; 6 17:00 Follow up: Response: Pain is decreased [facility] 15:40 Drug: Ketorolac 60 mg Route: IM; Site: left gluteus; 6 17:57 Follow up: Response: No adverse reaction [facility] 17:00 Drug: HYDROcodone-acetaminophen 5 mg-325 mg 1 tabs Route: PO; 6 17:57 Follow up: Response: No adverse reaction [facility] Disposition Summary: 12/14/21 16:19 Discharge Ordered Location: Home 9 Condition: Stable jl9 Diagnosis - Low back pain jl9 Followup: jl9 - With: Private Physician - When: 1 - 2 days - Reason: Recheck today's complaints, Continuance of care, Re-evaluation by your physician Discharge Instructions: - Discharge Summary Sheet jl9 - Acute Back Pain, Adult jl9 - Chronic Back Pain jl9 - Urinary Tract Infection, Adult, [id number] jl9 Forms: - Medication Reconciliation Form jl9 - Thank You Letter jl9 - Antibiotic Education jl9 - Prescription Opioid Use jl9 Prescriptions: - Cyclobenzaprine 10 mg Oral Tablet - take 1 tablet by ORAL route every 8 hours As needed; 30 tablet; Refills: 0, jl9 Product Selection Permitted - cefpodoxime 200 mg Oral Tablet - take 1 tablet by ORAL route every 12 hours for 7 days with food; 14 tablet; jl9 Refills: 0, Product Selection Permitted Signatures: Katie Ferguson RN RN jh6 Rogerio Belle jl9 Riana Lyons RN RN kr3
[2021-12-14] MEDS ORDERED: HYDROCODONE/APAP 5/325 MG TAB ONE (17:05)
[2021-12-14 18:46] VITALS: TEMP 97.2
[2021-12-14 18:48] VITALS: BP 145/80; O2SAT 97
== END 2021-12-14 18:02 | disposition home or self-care (01) ==
LOC: ER 14:51
DX: M54.50 Low back pain, unspecified (principal); I10 Essential (primary) hypertension; Z88.0 Allergy status to penicillin; Z88.5 Allergy status to narcotic agent
CPT/HCPCS: 81003; 96372; 99283

== ENCOUNTER 2022-02-07 19:56 | Emergency (ER) | payer OTHER ==
--- OUTSIDE RECORDS SUMMARY | 2022-02-07 20:08 | XMS REPORT | Continuity of Care Document ---
:1960 Author Organization [facility] t Address [address] [place] [address] Care Team Providers Name Role Phone Pcp, Patient Does Not Have A Primary Care Physician +[id number] JULIA BUTTERFIELD Attending Clinician Unavailable EREN OCHOA Attending Clinician Unavailable EREN OCHOA Attending Clinician Unavailable YOVANA ROD Attending Clinician Unavailable Yovana Rod DO Attending Clinician JULIA BUTTERFIELD Attending Clinician Unavailable YOVANA ROD Admitting Clinician Unavailable Payers Payer Name Policy Type Policy Number Effective Date Expiration Date S karen [facility] WELLMED [id number] 2021 00:00:00 WELLMED/[facility] [id number] 2021 MEDICARE GOLD PPO 00:00:00 CSNP Problems Condition Condition Condition Status Onset Resolution Last Treating Co mments Source Name Details Category Date Date Treatment Clinician Date No known No known Disease Unive rs active active ity of problems problems [facility] Allergies, Adverse Reactions, Alerts Allergy Allergy Status Severity Reaction(s) Onset Inactive Treating Comm ents Source Name Type Date Date Clinician KETOROLA DRUG Active Hives Univers C INGREDI 9-12 ity of 00:00: [place] 00 [facility] Ketorola Propensi Active Hives Univer s c ty to 9-12 ity of adverse 00:00: [place] reaction 00 Medical s Branch Penicill Propensi Active Other - See U nivers in ty to comments 7-15 ity of adverse 00:00: [place] reaction 00 Medical s Branch PENICILL DRUG Active Other-Cmnt Univ ers IN INGREDI 7-15 ity of 00:00: [place] 00 [facility] n Propensi Active ty to 6-23 adverse 00:00: reaction 00 to drug Bactrim Propensi Active - Oral ty to 4-01 adverse 00:00: reaction 00 to drug NO KNOWN Drug Active [facility] ALLERGIE Class ity of [facility] [place] Social History Social Habit Start Date Stop Date Quantity Comments Source Exposure to 2021-12-06 2021-12-16 Not sure [facility] SARS-CoV-2 (event) 00:00:00 23:48:00 Medica l Branch Sex Ass[birth year] At [birth year] [facility] 00:00:00 00:00:00 Medical Branch Smoking Status Start Date Stop Date Source Tobacco [facility] Medications Ordered Filled Start Stop Current Ordering Indication Dosage Frequency Signature Comments Components Source Medication Medication Date Date Medication? Clinician (SIG) Name Name LISINOPRIL 2021-04 No 5 MG TABS 0-11 00:00: 00 UNITHROID No 75 MCG TABS 9 00:00: 00 HUMULIN 0 No 70/30 12-27 KWIKPEN 00:00: (70-30) 100 00 UNIT/ML SUPN HYDROcodone 2021- No 1{tbl} 1 tablet, Univers -acetaminop 12-17 Oral, ity of hen (NORCO) 05:52: 05:58 [place] 10[place] 00 :00 dose, On Medica l tablet 1 Tue Branch tablet 12/17/21 at 0100, GEORGE MORPHINE 0 No 30 SULFATE ER 8-22 30 MG TBCR 00:00: 00 MORPHINE 2021-0 No 30 SULFATE ER 8-22 30 MG TBCR 00:00: 00 TRINTELLIX 2021-0 No 20 MG TABS 8-18 00:00: 00 TRINTELLIX 2021-0 No 20 20 MG TABS 8-18 00:00: 00 Dose 2022-0 No Unknown 8-10 00:00: 00 &lt 2022-0 No 10 8-10 00:00: 00 Dose 2022-0 No Unknown 8-10 00:00: 00 Dose 2022-0 No Unknown 8-10 00:00: 00 Dose 2022-0 No 5 Unknown 8-10 00:00: 00 Dose 2022-0 No 25 Unknown 8-10 00:00: 00 &lt 2022-0 No 10 8-10 00:00: 00 Dose 2022-0 No Unknown 8-10 00:00: 00 Dose 2022-0 No 15 Unknown 8-10 00:00: 00 Dose 2022-0 No 5 Unknown 8-10 00:00: 00 Dose 2022-0 No 4 Unknown 7 00:00: 00 Dose 2022-0 No 10 Unknown 11-01 00:00: 00 Dose 2022-0 No 4 Unknown 11-01 00:00: 00 Dose 2022-0 No 10 Unknown 11-01 00:00: 00 Dose 2022-0 No Unknown 7 00:00: 00 &lt 2022-0 No 7-25 00:00: 00 lisinopril 2022-0 No 1mg 5 mg tablet 7- 00:00: 00 Myrbetriq 2022-0 No 1mg 25 mg 7-21 tablet,exte 00:00: nded 00 release citalopram 2022-0 No 1mg 20 mg 7-21 tablet 00:00: 00 atorvastati 2022-0 No 1mg n 10 mg 7-21 tablet 00:00: 00 metformin 2022-0 No 1mg 1,000 mg 7-21 tablet 00:00: 00 Dose 2022-0 No Unknown 7- 00:00: 00 metoclopram 2022-0 No 1mg ankit 10 mg 7-21 tablet 00:00: 00 ferrous 2-0 No 1(65 mg sulfate 325 7-21 iron) mg (65 mg 00:00: iron) 00 tablet omeprazole 2-0 No 1mg 40 mg 7-21 capsule,del 00:00: ayed 00 release TAKE 1 2-0 No 1000 TABLET 7-21 TWICE 00:00: DAILY. 00 TAKE 1 2021-0 No 500 TABLET BY 7-21 MOUTH EVERY 00:00: 8 HOURS FOR 00 10 DAYS &lt 2022-0 No 250 7-21 00:00: 00 &lt 2022-0 No 10 7-21 00:00: 00 &lt 2022-0 No 25 7-21 00:00: 00 &lt 2022-0 No 7-21 00:00: 00 &lt 2022-0 No 7-21 00:00: 00 TAKE 1 2022-0 No 1000 TABLET 7-21 TWICE 00:00: DAILY. 00 lisinopril 2022-0 No 1mg 5 mg tablet 7- 00:00: 00 Myrbetriq 2022-0 No 1mg 25 mg 7-21 tablet,exte 00:00: nded 00 release citalopram 2-0 No 1mg 20 mg 7-21 tablet 00:00: 00 atorvastati 2022-0 No 1mg n 10 mg 7-21 tablet 00:00: 00 metformin 2-0 No 1mg 1,000 mg 7-21 tablet 00:00: 00 glimepiride 2-0 No 1mg 1 mg tablet 10-24 00:00: 00 metoclopram 2-0 No 1mg ankit 10 mg 7-21 tablet 00:00: 00 ferrous 2022-0 No 1(65 mg sulfate 325 - iron) mg (65 mg 00:00: iron) 00 tablet omeprazole 2021-0 No 1mg 40 mg - capsule,del 00:00: ayed 00 release TAKE 1 2021-0 No 1000 TABLET - TWICE 00:00: DAILY. 00 TAKE 1 2021-0 No 500 TABLET BY 7- MOUTH EVERY 00:00: 8 HOURS FOR 00 10 DAYS &lt 2022-0 No 250 7-21 00:00: 00 &lt 2022-0 No 10 7-21 00:00: 00 &lt 2022-0 No 25 7-21 00:00: 00 &lt 2022-0 No 7-21 00:00: 00 &lt 2022-0 No 7-21 00:00: 00 TAKE 1 2-0 No 1000 TABLET 7- TWICE 00:00: DAILY. 00 lisinopril 2-0 No 1mg 5 mg tablet 10-24 00:00: 00 Myrbetriq 2022-0 No 1mg 25 mg 7-21 tablet,exte 00:00: nded 00 release citalopram 2021-0 No 1mg 20 mg 7-21 tablet 00:00: 00 atorvastati 2021-0 No 1mg n 10 mg - tablet 00:00: 00 metformin 2021-0 No 1mg 1,000 mg - tablet 00:00: 00 glimepiride 2021-0 No 1mg 1 mg tablet 10-24 00:00: 00 metoclopram 2021-0 No 1mg ankit 10 mg - tablet 00:00: 00 ferrous 2021-0 No 1(65 mg sulfate 325 10-24 iron) mg (65 mg 00:00: iron) 00 tablet omeprazole 2021-0 No 1mg 40 mg 10-24 capsule,del 00:00: ayed 00 release TAKE 1 2021-0 No 1000 TABLET 10-24 TWICE 00:00: DAILY. 00 TAKE 1 2021-0 No 500 TABLET BY 7- MOUTH EVERY 00:00: 8 HOURS FOR 00 10 DAYS &lt 2021-0 No 250 7- 00:00: 00 &lt 202-0 No 10 7- 00:00: 00 &lt 2022-0 No 25 7- 00:00: 00 &lt 2-0 No 7-21 00:00: 00 &lt 2-0 No 7-21 00:00: 00 TAKE 1 2021-0 No 1000 TABLET 10-24 TWICE 00:00: DAILY. 00 Dose 2021-0 No 5 Unknown 7- 00:00: 00 Dose 2021-0 No 5 Unknown 7 00:00: 00 Dose 2021-0 No 5 Unknown -20 00:00: 00 HYDROcodone 2021-0 202- No 1{tbl} 1 tablet, Univers -acetaminop 10-19 07-16 Oral, ity of hen (NORCO) 06:30: 05:28 [place] mg 00 :00 dose, On Medica l tablet 1 Sat Branch tablet 10/19/21 at 0130, Routine No known 2021-0 No No known Unive rs medications 10-19 medication it y of 04:06: s [address] TAKE 1 2021-0 No 500 TABLET BY 7-13 MOUTH EVERY 00:00: 12 HOURS 00 FOR 10 DAYS &lt 2022-0 No 7-13 00:00: 00 TAKE 1 2022-0 No TABLET BY 7-13 MOUTH DAILY 00:00: 00 &lt 2022-0 No 7-13 00:00: 00 &lt 2022-0 No 20 7- 00:00: 00 Dose 2022-0 No 50 Unknown 7 00:00: 00 TAKE 1 2022-0 No 500 TABLET BY 7-13 MOUTH EVERY 00:00: 8 HOURS FOR 00 10 DAYS Dose 2022-0 No 20 Unknown 7 00:00: 00 Dose 2022-0 No 10 Unknown 7 00:00: 00 &lt 2022-0 No 25 7- 00:00: 00 DISSOLVE 1 2022-0 No 4 TABLET BY 7-13 MOUTH EVERY 00:00: 8 HOURS 00 NEEDED &lt 2022-0 No 7- 00:00: 00 TAKE 1 2022-0 No 1000 TABLET 7- TWICE 00:00: DAILY. 00 &lt 2022-0 No 10 7- 00:00: 00 &lt 2022-0 No 15 7 00:00: 00 &lt 2022-0 No 5 7- 00:00: 00 TAKE 1 2022-0 No 5 TABLET BY 7-13 MOUTH TWICE 00:00: A DAY 00 NEEDED FOR ANXIETY Dose 2022-0 No Unknown 7 00:00: 00 &lt 2022-0 No 7- 00:00: 00 TAKE 1 2022-0 No 500 TABLET BY 7-13 MOUTH EVERY 00:00: 12 HOURS 00 FOR 10 DAYS &lt 2022-0 No 7-13 00:00: 00 TAKE 1 2022-0 No TABLET BY 7-13 MOUTH DAILY 00:00: 00 &lt 2022-0 No 7-13 00:00: 00 &lt 2022-0 No 20 7- 00:00: 00 Dose 2022-0 No 50 Unknown 10-16 00:00: 00 TAKE 1 2022-0 No 500 TABLET BY 7-13 MOUTH EVERY 00:00: 8 HOURS FOR 00 10 DAYS Dose 2022-0 No 20 Unknown 10-16 00:00: 00 Dose 2022-0 No 10 Unknown 10-16 00:00: 00 &lt 2022-0 No 25 7- 00:00: 00 DISSOLVE 1 2022-0 No 4 TABLET BY 7-13 MOUTH EVERY 00:00: 8 HOURS 00 NEEDED &lt 2022-0 No 7-13 00:00: 00 TAKE 1 2022-0 No 1000 TABLET 7-13 TWICE 00:00: DAILY. 00 &lt 2022-0 No 10 7-13 00:00: 00 &lt 2022-0 No 15 7-13 00:00: 00 &lt 2022-0 No 5 7-13 00:00: 00 TAKE 1 2022-0 No 5 TABLET BY 7-13 MOUTH TWICE 00:00: A DAY 00 NEEDED FOR ANXIETY Dose 2022-0 No Unknown 7- 00:00: 00 &lt 2022-0 No 7-13 00:00: 00 TAKE 1 2022-0 No 500 TABLET BY 7-13 MOUTH EVERY 00:00: 12 HOURS 00 FOR 10 DAYS &lt 2022-0 No 7-13 00:00: 00 TAKE 1 2022-0 No TABLET BY 7-13 MOUTH DAILY 00:00: 00 &lt 2022-0 No 7-13 00:00: 00 &lt 2022-0 No 20 7- 00:00: 00 Dose 2022-0 No 50 Unknown 7 00:00: 00 TAKE 1 2022-0 No 500 TABLET BY 7-13 MOUTH EVERY 00:00: 8 HOURS FOR 00 10 DAYS Dose 2022-0 No 20 Unknown 7- 00:00: 00 Dose 2022-0 No 10 Unknown 7 00:00: 00 &lt 2022-0 No 25 7- 00:00: 00 DISSOLVE 1 2022-0 No 4 TABLET BY 7-13 MOUTH EVERY 00:00: 8 HOURS 00 NEEDED &lt 2022-0 No 7-13 00:00: 00 TAKE 1 2022-0 No 1000 TABLET 7-13 TWICE 00:00: DAILY. 00 &lt 2022-0 No 10 7-13 00:00: 00 &lt 2022-0 No 15 7- 00:00: 00 &lt 2022-0 No 5 7- 00:00: 00 TAKE 1 2022-0 No 5 TABLET BY 7-13 MOUTH TWICE 00:00: A DAY 00 NEEDED FOR ANXIETY Dose 2022-0 No Unknown 7- 00:00: 00 &lt 2022-0 No 7- 00:00: 00 TAKE 1 2022-0 No 5 [...] 8 HOURS 00 NEEDED &lt 2022-0 No 10-09 00:00: 00 &lt 2022-0 No 30 10-09 00:00: 00 TAKE 1 2022-0 No 30 TABLET BY 7-06 MOUTH AT 00:00: BEDTIME 00 &lt 2022-0 No 10-09 00:00: 00 Dose 2022-0 No 50 Unknown 10-09 00:00: 00 &lt 2022-0 No 20 10-09 00:00: 00 &lt 2022-0 No 10-09 00:00: 00 TAKE 1 2022-0 No [id number] TABLET 10-09 TWICE 00:00: DAILY. 00 &lt 2022-0 No 25 10-09 00:00: 00 TAKE 1 2022-0 No 500 TABLET BY 7-06 MOUTH EVERY 00:00: 8 HOURS FOR 00 10 DAYS &lt 2022-0 No 10-09 00:00: 00 &lt 2022-0 No 30 10-09 00:00: 00 TAKE 1 2022-0 No 30 TABLET BY - MOUTH AT 00:00: BEDTIME 00 &lt 2022-0 No 10-09 00:00: 00 Dose 2022-0 No 50 Unknown 10-09 00:00: 00 &lt 2022-0 No 20 10-09 00:00: 00 &lt 2022-0 No 10-09 00:00: 00 TAKE 1 2022-0 No [id number] TABLET 10-09 TWICE 00:00: DAILY. 00 &lt 2022-0 No 25 10-09 00:00: 00 TAKE 1 2022-0 No 500 TABLET BY 7-06 MOUTH EVERY 00:00: 8 HOURS FOR 00 10 DAYS &lt 2022-0 No 7-06 00:00: 00 &lt 2022-0 No 30 7- 00:00: 00 TAKE 1 2022-0 No 30 TABLET BY 7-06 MOUTH AT 00:00: BEDTIME 00 &lt 2022-0 No 7- 00:00: 00 Dose 2022-0 No 50 Unknown 10-09 00:00: 00 &lt 2022-0 No 20 7- 00:00: 00 &lt 2022-0 No 7- 00:00: 00 TAKE 1 2022-0 No [id number] TABLET 10-09 TWICE 00:00: DAILY. 00 &lt 2022-0 No 25 7 00:00: 00 TAKE 1 2022-0 No 500 TABLET BY 7-06 MOUTH EVERY 00:00: 8 HOURS FOR 10 DAYS TAKE 1 2022-0 No 20 TABLET BY [...] EVERY 00:00: 8 HOURS FOR 10 DAYS TAKE 1 2022-0 No TABLET BY 6-29 MOUTH EVERY 00:00: 8 HOURS FOR 00 10 DAYS &lt 2022-0 No 6 00:00: 00 &lt 2022-0 No 6 00:00: 00 &lt 2022-0 No 6 00:00: 00 &lt 2022-0 No 6 00:00: 00 TAKE 1 2022-0 No TABLET BY 6-29 MOUTH EVERY 00:00: 8 HOURS FOR 00 10 DAYS TAKE 1 2022-0 No TABLET BY 6-29 MOUTH EVERY 00:00: 8 HOURS FOR 00 10 DAYS &lt 2022-0 No 6 00:00: 00 &lt 2022-0 No 6 00:00: 00 &lt 2022-0 No 6 00:00: 00 &lt 2022-0 No 6 00:00: 00 TAKE ONE 2022-0 No (1) TO TWO 09-30 (2) 00:00: TABLET(S) 00 BY MOUTH EVERY 6 HOURS NEEDED FOR PAIN , NO MORE THAN 8 TABLETS IN 24 HOURS. &lt 2022-0 No 6 00:00: 00 &lt 2022-0 No 6 00:00: 00 &lt 2022-0 No 6 00:00: 00 &lt 2022-0 No 6 00:00: 00 &lt 2022-0 No 6 00:00: 00 TAKE ONE 2-0 No (1) TO TWO 09-30 (2) 00:00: TABLET(S) 00 BY MOUTH EVERY 6 HOURS NEEDED FOR PAIN , NO MORE THAN 8 TABLETS IN 24 HOURS. &lt 2022-0 No 6 00:00: 00 &lt 2022-0 No 6 00:00: 00 &lt 2022-0 No 6-27 00:00: 00 &lt 2022-0 No 6 00:00: 00 &lt 2022-0 No 6 00:00: 00 TAKE ONE 2-0 No (1) [...] 50 mg 4-29 tablet 00:00: 00 lisinopril 2-0 No 1mg 5 mg tablet 4-29 00:00: 00 metformin 2022-0 No 1mg 1,000 mg 4-29 tablet 00:00: 00 metoclopram 2022-0 No 1mg ankit 10 mg 4-29 tablet 00:00: 00 citalopram 2022-0 No 1mg 20 mg 4-27 tablet 00:00: 00 atorvastati 2022-0 No 1mg n 10 mg 4-27 tablet 00:00: 00 glimepiride 2-0 No 1mg 1 mg tablet 427 00:00: 00 levothyroxi 2022-0 No 1mcg ne 75 mcg 4-27 tablet 00:00: 00 levothyroxi 2-0 No 1mcg ne 200 mcg 4-27 tablet [...] glimepiride 2-0 No 1mg 1 mg tablet 427 00:00: 00 levothyroxi 2022-0 No 1mcg ne 75 mcg 4-27 tablet 00:00: 00 levothyroxi 2-0 No 1mcg ne 200 mcg 4-27 tablet 00:00: 00 levothyroxi 2022-0 No 1mcg ne 300 mcg 4-27 tablet 00:00: 00 ferrous 2022-0 No 1(65 mg sulfate 325 4-27 iron) mg (65 mg 00:00: iron) 00 tablet omeprazole 2-0 No 1mg 40 mg 4-27 capsule,del 00:00: ayed 00 release citalopram 2022-0 No 1mg 20 mg 4-27 tablet 00:00: 00 atorvastati 2022-0 No 1mg n 10 mg 4-27 tablet 00:00: 00 glimepiride 2-0 No 1mg 1 mg tablet 4-27 00:00: 00 levothyroxi 2-0 No 1mcg ne 75 mcg 4-27 tablet [...] n 10 mg 4-27 tablet 00:00: 00 Dose 2-0 No Unknown 4-27 00:00: 00 levothyroxi 2-0 No 1mcg ne 75 mcg 4-27 tablet 00:00: 00 levothyroxi 2-0 No 1mcg ne 200 mcg 4-27 tablet 00:00: 00 levothyroxi 2-0 No 1mcg ne 300 mcg 4-27 tablet 00:00: 00 ferrous 2-0 No 1(65 mg sulfate 325 4-27 iron) [...] 75 mcg 4-01 tablet 00:00: 00 levothyroxi 2021-0 No 1mcg ne 200 mcg 4-01 tablet [...] 200 mcg 4-01 tablet 00:00: 00 hydrocortis 2022-0 No 1mg one acetate 4-01 25 mg [...] 2022-0 No Unknown 3-31 00:00: 00 Dose 2-0 No Unknown 3-31 00:00: 00 Dose 2-0 No Unknown 3-31 00:00: 00 Dose 2022-0 No Unknown 3-31 00:00: 00 Dose 2022-0 No Unknown 3-31 00:00: 00 Dose 2-0 No Unknown 3-31 00:00: 00 Dose 2022-0 No Unknown 3-31 00:00: 00 Dose 2022-0 No Unknown 1-25 00:00: 00 Dose 2022-0 No Unknown 1-25 00:00: 00 Dose 2-0 No Unknown 1-25 00:00: 00 Dose 2-0 No Unknown 1-25 00:00: 00 Dose 2022-0 No Unknown 1-25 00:00: 00 Dose 2022-0 No Unknown 1-25 00:00: 00 Dose 2-0 No Unknown 1-25 00:00: 00 Dose 2022-0 No Unknown 1-25 00:00: 00 Dose 2022-0 No Unknown 1-25 00:00: 00 Dose 2-0 No Unknown 1-25 00:00: 00 Dose 2-0 No Unknown 1-25 00:00: 00 Dose 2022-0 No Unknown 1-25 00:00: 00 Dose 2-0 No Unknown 1-20 00:00: 00 Dose 2-0 No Unknown 1-20 00:00: 00 Dose 2-0 No Unknown 1-20 00:00: 00 Dose 2-0 No Unknown 1-20 00:00: 00 levothyroxi 2021-0 No 1mcg ne 150 mcg 1-19 capsule 00:00: 00 neomycin-po 2021-0 No 4mg/mL- lymyxin-hyd 1-19 unit/mL rocort 3.5 00:00: -% mg-10,000 00 unit/mL-1 % ear drops,susp Humulin 0 No 1unit/m 70/30 U-100 1-19 L Insulin 100 00:00: (70-30) unit/mL 00 subcutaneou s suspension lisinopril 0 No 1mg 5 mg tablet 1-19 00:00: [...] 250 mg 1-19 tablet 00:00: 00 Dose 2-0 No Unknown -19 00:00: 00 Dose 2022-0 No Unknown 04-24 00:00: 00 Dose 2-0 No Unknown 04-24 00:00: 00 levothyroxi 2-0 No 1mcg ne 150 mcg -19 capsule 00:00: 00 neomycin-po 2-0 No 4mg/mL- lymyxin-hyd 1-19 unit/mL rocort 3.5 00:00: -% mg-10,000 00 unit/mL-1 % ear drops,susp Humulin 2-0 No 1unit/m 70/30 U-100 1-19 L Insulin 100 00:00: (70-30) unit/mL 00 subcutaneou s suspension lisinopril 2-0 No 1mg 5 mg tablet 19 00:00: 00 hydroxyzine 2-0 No 1mg HCl 50 mg 1-19 tablet 00:00: 00 Myrbetriq 2022-0 No 1mg 25 mg 1-19 tablet,exte 00:00: nded 00 release Dose 2-0 No Unknown -19 00:00: 00 metformin 2022-0 [...] 1-19 00:00: 00 Dose 2022-0 No Unknown -19 00:00: 00 Dose 2022-0 No Unknown 1-19 00:00: 00 levothyroxi 2022-0 No 1mcg ne 150 mcg 1-19 capsule 00:00: 00 neomycin-po 2022-0 No 4mg/mL- lymyxin-hyd 1-19 unit/mL rocort 3.5 00:00: -% mg-10,000 00 unit/mL-1 % ear drops,susp Humulin 2-0 No 1unit/m 70/30 U-100 1-19 L Insulin 100 00:00: (70-30) unit/mL 00 subcutaneou s suspension lisinopril 2-0 No 1mg 5 mg tablet 04-24 00:00: 00 hydroxyzine 2022-0 No 1mg HCl 50 mg 1-19 tablet 00:00: 00 Myrbetriq 2022-0 No 1mg 25 mg 1-19 tablet,exte 00:00: nded 00 release Dose 2-0 No Unknown 04-24 00:00: 00 metformin 2022-0 No 1mg 1,000 mg 1-19 tablet 00:00: 00 metformin 2022-0 No 1mg 500 mg 1-19 tablet 00:00: 00 metoprolol 2022-0 No 1mg tartrate 25 1-19 mg tablet 00:00: 00 metoclopram 2022-0 No 1mg ankit 10 mg 1-19 tablet 00:00: 00 azithromyci 2022-0 No mg n 250 mg 1-19 tablet 00:00: 00 neomycin-po 2022-0 No 4mg/mL- lymyxin-hyd 1-19 unit/mL rocort 3.5 00:00: -% mg-10,000 00 unit/mL-1 % ear drops,susp Humulin 2022-0 No 1unit/m 70/30 U-100 1-19 L Insulin 100 00:00: (70-30) unit/mL 00 subcutaneou s suspension lisinopril 2-0 No 1mg 5 mg tablet 1-19 00:00: 00 Dose 2022-0 No Unknown [...] metoclopram 2022-0 No 1mg ankit 10 mg -19 tablet 00:00: 00 azithromyci 2022-0 No mg n 250 mg -19 tablet 00:00: 00 Dose 2022-0 No Unknown 1-19 00:00: 00 Dose 2022-0 No Unknown 1-19 00:00: 00 Dose 2022-0 No Unknown 1-19 00:00: 00 Dose 2022-0 No Unknown 1-19 00:00: 00 levothyroxi 2022-0 No 1mcg ne 150 mcg -19 capsule 00:00: 00 Dose 2022-0 No Unknown -19 00:00: 00 lisinopril 2022-0 No 1mg 5 mg tablet 04-11 00:00: 00 lisinopril 2022-0 No 1mg 5 mg tablet 04-11 00:00: 00 lisinopril 2022-0 No 1mg 5 mg tablet 04-11 00:00: 00 lisinopril 2022-0 No 1mg 5 mg tablet 04-11 00:00: 00 Humulin 2022-0 No 1unit/m 70/30 U-100 1-03 L Insulin 100 00:00: (70-30) unit/mL 00 subcutaneou s suspension hydroxyzine 2022-0 No 1mg HCl 50 mg [...] 1-03 tablet 00:00: 00 Zofran 4 mg 1-1 No 1mg tablet 2-16 00:00: 00 levothyroxi 2020-1 No 1mcg ne 150 mcg 2-16 capsule 00:00: 00 Zofran 4 mg 1-1 No 1mg tablet 2-16 00:00: 00 levothyroxi 1-1 No 1mcg ne 150 mcg 2-16 capsule 00:00: 00 Zofran 4 mg 1-1 No 1mg tablet 2-16 00:00: 00 levothyroxi 1-1 No 1mcg ne 150 mcg 2-16 capsule 00:00: 00 Zofran 4 mg 2020-1 No 1mg tablet 2-16 00:00: 00 levothyroxi 2020-1 No 1mcg ne 150 mcg 2-16 capsule 00:00: 00 metformin 1-1 No 1mg 500 mg 1-27 tablet 00:00: 00 metformin 2020-1 No 1mg 500 mg 1-27 tablet 00:00: 00 metformin 2020-1 No 1mg 500 mg 1-27 tablet 00:00: 00 metformin 2020-1 No 1mg 500 mg 1-27 tablet 00:00: 00 metoprolol 2020-1 No 1mg tartrate 25 1-22 mg tablet 00:00: 00 metoprolol 2020-1 No 1mg tartrate 25 1-22 mg tablet 00:00: 00 metoprolol 2020-1 No 1mg tartrate 25 1-22 mg tablet 00:00: 00 metoprolol 2020-1 No 1mg tartrate 25 1-22 mg tablet 00:00: 00 Myrbetriq 2020-1 No 1mg 25 mg 1-16 tablet,exte 00:00: nded 00 release metoclopram 2020-1 No 1mg ankit 10 mg 1-16 tablet 00:00: 00 Myrbetriq 2020-1 No 1mg 25 mg 1-16 tablet,exte 00:00: nded 00 release metoclopram 2020-1 No 1mg ankit 10 mg 1-16 tablet 00:00: 00 Myrbetriq 2020-1 No 1mg 25 mg 1-16 tablet,exte 00:00: nded 00 release metoclopram 2020-1 No 1mg ankit 10 mg 1-16 tablet 00:00: 00 Myrbetriq 2020-1 No 1mg 25 mg 1-16 tablet,exte 00:00: nded 00 release metoclopram 2020-1 No 1mg ankit 10 mg 1-16 tablet 00:00: 00 atorvastati 2020-1 No 1mg n 10 mg 1-14 tablet 00:00: 00 omeprazole 2020-1 No 1mg 40 mg 1-14 capsule,del 00:00: ayed 00 release atorvastati 2020-1 No 1mg n 10 mg 1-14 tablet 00:00: 00 omeprazole 2020-1 No 1mg 40 mg 1-14 capsule,del 00:00: ayed 00 release atorvastati 2020-1 No 1mg n 10 mg 1-14 tablet [...] 150 mcg 1-04 capsule 00:00: 00 ferrous 2020-04 No 1(65 mg sulfate 325 [...] 300 mcg 0-13 tablet 00:00: 00 nitrofurant 2020-04 No 1mg oin 0-12 macrocrysta 00:00: l 100 mg 00 capsule nitrofurant 2021-1 No 1mg oin 0-12 macrocrysta 00:00: l 100 mg 00 capsule nitrofurant 1-1 No 1mg oin 0-12 macrocrysta 00:00: l 100 mg 00 capsule nitrofurant 1-1 No 1mg oin 0-12 macrocrysta 00:00: l [...] 9-01 tablet,exte 00:00: nded 00 release metoclopram 1-0 No 1mg ankit 10 mg 8-13 tablet [...] unit) (50,000 00:00: unit) 00 capsule Trintellix 1-0 No 1mg 20 mg 7-13 tablet 00:00: 00 Myrbetriq 2021-0 No 1mg 25 mg 7-13 tablet,exte 00:00: nded 00 release atorvastati 1-0 No 1mg n 10 mg 7-13 tablet 00:00: 00 Humulin 1-0 No 1unit/m 70/30 U-100 7-13 L Insulin 100 00:00: (70-30) unit/mL 00 subcutaneou s suspension Trintellix 2021-0 No 1mg 20 mg 7-13 tablet 00:00: 00 Myrbetriq 2021-0 No 1mg 25 mg 7-13 tablet,exte 00:00: nded 00 release atorvastati 1-0 No 1mg n 10 mg 7-13 tablet [...] 0 unit) (50,000 00:00: unit) 00 capsule metformin 2020-0 No 1mg 500 mg 7-13 tablet 00:00: 00 Immunizations Ordered Immunization Filled Immunization Date Status Commen ts Source Name Name Yadi ROBERTSIDNick 2021-02-07 Completed Vaccine 00:00:00 Yadi ROBERTSID-Maritza 2021-02-07 Completed Vaccine 00:00:00 Yadi ROBERTSID-19 2021-02-07 Completed Vaccine 00:00:00 Yadi ROBERTSID-Maritza 2021-02-07 Completed Vaccine 00:00:00 Vital Signs Vital Name Observation Time Observation Value Comments Source Systolic blood 2021-12-17 04:49:00 147 mm[Hg] [facility] Diastolic blood 2021-12-17 04:49:00 74 [facility]Hg[facility]-12[facility]17 04:49:00 97 /min [facility] Body temperature 2021-12-17 04:49:00 37 Keli [facility] Respiratory rate 2021-12-17 04:49:00 18 /min [facility] Body weight 2021-12-17 04:49:00 88.905 kg [facility] BMI 2021-12-17 04:49:00 35.85 kg/m2 [facility] Oxygen saturation in 2021-12-17 04:49:00 100 /min [facility] Arterial blood by [facility] Pulse oximetry Branch Systolic blood 2021-10-19 08:10:00 123 mm[Hg] [facility] of [facility] Diastolic blood 2021-10-19 08:10:00 87 mm[Hg] Unive rsity [facility] Heart rate 2021-10-19 08:10:00 82 /min [facility] Respiratory rate 2021-10-19 08:10:00 18 /min [facility] Oxygen saturation in 2021-10-19 08:10:00 98 /min [facility] Arterial blood by [facility] Pulse oximetry Branch Body temperature 2021-10-19 04:15:00 36.83 Keli [facility] Body height 2021-10-19 04:15:00 157.5 cm [facility] Body weight 2021-10-19 04:15:00 88.905 kg [facility] BMI 2021-10-19 04:15:00 35.85 kg/m2 [facility] BP Systolic 2022-01-14 10:36:00 122 mm[Hg] BP Diastolic 2022-01-14 10:36:00 78 mm[Hg] Weight Measured 2022-01-14 10:36:00 202.40 pounds Height Measured 2022-01-14 10:36:00 61.81 inches Body Temperature 2022-01-14 10:36:00 97.80 degrees Heart Rate 2022-01-14 10:36:00 86.00 /min Respiratory Rate 2022-01-14 10:36:00 17.00 /min BP Systolic 2021-12-02 13:09:00 142 mm[Hg] BP [...] Procedure Date / Time Performed Performing Clinician Sour e NOTICE OF PRIVACY 2021-12-17 04:36:17 [facility] 2021-12-17 04:35:03 Doctor Unassigned, No [facility] [place] [facility] TREATMENT XR HIPS 3 VW LEFT 2021-10-19 04:42:39 Yovana Rod [facility] NOTICE OF PRIVACY 2021-10-19 04:04:38 [facility]SENT/REFUSAL FOR 2021-10-19 04:04:16 Doctor Unassigned, No [facility] [place] DIAG[facility] AND Name Medical Branch TREATMENT Plan of Care Planned Activity Planned Date Details Comments Source Goal Plan of Care Note [code = 31371-8] Goal Plan of Care Note [code = 63176-2] Goal Plan of Care Note [code = 89993-9] Goal Plan of Care Note [code = 40691-5] Goal Plan of Care Note [code = 61060-5] Goal Plan of Care Note [code = 89383-7] Goal Plan of Care Note [code = 39206-5] Goal Plan of Care Note [code = 05155-0] Goal Plan of Care Note [code = 70365-7] Goal Plan of Care Note [code = 08144-8] Goal Plan of Care Note [code = 13622-1] Goal Plan of Care Note [code = 08531-2] Goal Plan of Care Note [code = 30722-0] Goal Plan of Care Note [code = 56315-6] Goal Plan of Care Note [code = 27721-8] Goal Plan of Care Note [code = 95372-7] Goal Plan of Care Note [code = 28959-7] Goal Plan of Care Note [code = 99262-6] Goal Plan of Care Note [code = 92381-2] Goal Plan of Care Note [code = 08323-4] Goal Plan of Care Note [code = 48177-1] Goal Plan of Care Note [code = 61894-2] Goal Plan of Care Note [code = 07694-3] Goal Plan of Care Note [code = 55218-4] Goal Plan of Care Note [code = 35234-7] Goal Plan of Care Note [code = 61874-4] Goal Plan of Care Note [code = 45935-7] Goal Plan of Care Note [code = 58660-4] Goal Plan of Care Note [code = 97684-7] Goal Plan of Care Note [code = 28628-0] Goal Plan of Care Note [code = 20566-4] Goal Plan of Care Note [code = 29407-5] Goal Plan of Care Note [code = 15787-2] Goal Plan of Care Note [code = 58025-9] Goal Plan of Care Note [code = 57251-7] Goal Plan of Care Note [code = 91166-3] Goal Plan of Care Note [code = 86612-1] Goal Plan of Care Note [code = 65971-2] Goal Plan of Care Note [code = 87578-7] Goal Plan of Care Note [code = 77022-4] Goal Plan of Care Note [code = 48847-6] Goal Plan of Care Note [code = 74875-3] Goal Plan of Care Note [code = 71466-1] Goal Plan of Care Note [code = 79295-6] Goal Plan of Care Note [code = 60153-7] Goal Plan of Care Note [code = 03210-2] Goal Plan of Care Note [code = 57133-7] Goal Plan of Care Note [code = 08407-0] Goal Plan of Care Note [code = 87449-8] Goal Plan of Care Note [code = 38280-9] Goal Plan of Care Note [code = 30402-1] Goal Plan of Care Note [code = 14651-2] Goal Plan of Care Note [code = 52800-4] Goal Plan of Care Note [code = 28414-9] Goal Plan of Care Note [code = 37169-2] Goal Plan of Care Note [code = 24677-7] Goal Plan of Care Note [code = 42943-3] Goal Plan of Care Note [code = 27265-7] Goal Plan of Care Note [code = 51029-3] Goal Plan of Care Note [code = 89961-0] Goal Plan of Care Note [code = 76775-1] Goal Plan of Care Note [code = 28834-1] Goal Plan of Care Note [code = 52621-9] Goal Plan of Care Note [code = 43014-3] Goal Plan of Care Note [code = 62744-1] Goal Plan of Care Note [code = 40938-8] Goal Plan of Care Note [code = 19634-6] Goal Plan of Care Note [code = 40848-7] Goal Plan of Care Note [code = 73436-4] Goal Plan of Care Note [code = 61433-1] Goal Plan of Care Note [code = 18645-4] Goal Plan of Care Note [code = 77523-6] Goal Plan of Care Note [code = 82933-1] Goal Plan of Care Note [code = 61911-8] Goal Plan of Care Note [code = 95876-0] Goal Plan of Care Note [code = 41858-7] Goal Plan of Care Note [code = 23438-0] Goal Plan of Care Note [code = 91073-3] Goal Plan of Care Note [code = 36178-9] Goal Plan of Care Note [code = 62894-6] Goal Plan of Care Note [code = 29508-3] Goal Plan of Care Note [code = 09111-8] Goal Plan of Care Note [code = 07044-9] Goal Plan of Care Note [code = 57659-8] Goal Plan of Care Note [code = 21464-3] Goal Plan of Care Note [code = 10995-8] Goal Plan of Care Note [code = 75139-9] Goal Plan of Care Note [code = 21331-9] Goal Plan of Care Note [code = 21566-1] Goal Plan of Care Note [code = 40992-2] Goal Plan of Care Note [code = 88581-0] Goal Plan of Care Note [code = 65116-9] Goal Plan of Care Note [code = 55775-9] Goal Plan of Care Note [code = 52215-1] Goal Plan of Care Note [code = 47628-2] Goal Plan of Care Note [code = 21395-9] Goal Plan of Care Note [code = 49655-6] Goal Plan of Care Note [code = 47135-5] Goal Plan of Care Note [code = 65309-0] Goal Plan of Care Note [code = 52311-7] Goal Plan of Care Note [code = 94210-2] Goal Plan of Care Note [code = 21450-6] Goal Plan of Care Note [code = 78837-5] Goal Plan of Care Note [code = 96393-1] Goal Plan of Care Note [code = 12220-9] Goal Plan of Care Note [code = 68716-9] Goal Plan of Care Note [code = 50336-5] Goal Plan of Care Note [code = 22836-1] Goal Plan of Care Note [code = 71920-2] Goal Plan of Care Note [code = 89848-1] Goal Plan of Care Note [code = 90845-2] Encounters Start End Encounter Admission Attending Care Care Encounter Source Date/Time Date/Time Type Type Clinicians Facility Department ID 2022-01-06 Outpatient [facility] [id number] [place] 15:02:53 [id number] [facility] 2021-09-19 Outpatient SCOUT [facility] [id number] [place] 01:03:24 JULIA [id number] [facility] 2022-01-14 2022-01-14 Outpatient JAI [facility] [id number] Gene 10:28:11 10:28:11 F [place] 2022-01-14 2022-01-14 Outpatient [id number]- [id number] fa7r97-k 00:00:00 00:00:00 Visit vy11-773s w35-166w-6 -1r27-a24 o18-h367zx 9ue73rnzw 51adba 2022-01-02 2022-01-02 Outpatient [facility] [id number] Gene 15:06:03 15:06:03 56151 F Abbe 2021-12-16 2021-12-17 Emergency X EREN OCHOA [facility] ERT 1 [id number] [facility] 23:50:00 01:28:[address] [facility] 2021-12-16 2021-12-17 [facility] [id number] [facility] 23:50:00 01:28:00 Eren [place] [id number] i ty of [place] 4.2.7.2.686 [facility] [id number] [address] 2021-12-02 2021-12-02 Outpatient [id number] 94fb12-8 00:00:00 00:00:00 Visit 3k19-6n95 k98-2v42-6 -7ug4-l91 af5-x05181 [id number] 6707-07-21 2021-10-24 Outpatient 55qm31h2- [id number] kv03g0-1 00:00:00 00:00:00 Visit 422b-482d 22b-482d-8 -8157-b70 157-b704e0 0y33r3fdk 0f6bdd 2021-10-18 2021-10-19 Emergency [facility] [id number] [facility] 23:20:00 03:26:[address] [facility] 2021-10-18 2021-10-19 [facility] [id number] [facility] 23:20:00 03:26:00 Yovana [place] 350.1.13.10 i ty of [place] 4.2.7.2.686 [facility] [id number] [address] 2021-09-30 2021-09-30 Outpatient [id number]- [id number] m77e51-3 00:00:00 00:00:00 Visit 6d0x-8xqm s4w-7mws-g -e0r5-hsw 4r7-tyme16 [id number] 696ce1 2021-06-20 2021-06-20 Outpatient [facility]OUT [facility] 12:04:00 23:59:00 JULIA Results Test Description Test Time Test Comments Results Result Comments Source TSH, THIRD GENERATION 2022-01-15 06:52:55 Test Item Value Reference Range Interpretation Comme nts TSH, THIRD GENERATION (test code = 2821) 2.700 UIU/ML 0.400-4.100 COMPREHENSIVE METABOLIC [id number] 04:09:28 Test Item Value Reference Range Interpretation Comments GLUCOSE (test code = 169 MG/DL 70-99 H 2216) BUN (test code = 17 MG/DL 8-23 2207) CREATININE (test 0.86 MG/DL 0.60-1.30 code = 2214) eGFR (2020 CKD-EPI) 76 ML/MIN/1.73 >60 (test code = 52401) CALC BUN/CREAT (test 20 RATIO 6-28 code = 2235) SODIUM (test code = 141 MEQ/L 196-890 3189) POTASSIUM (test code 4.3 MEQ/L 3.5-5.4 = 2227) CHLORIDE (test code 99 MEQ/L 95-107 = 2215) CARBON DIOXIDE (test 25 MEQ/L 19-31 code = 2206) CALCIUM (test code = 9.6 MG/DL 8.5-10.5 2208) PROTEIN, TOTAL (test 7.6 G/DL 6.1-8.3 code = 2229) ALBUMIN (test code = 4.3 G/DL 3.5-5.2 2200) CALC GLOBULIN (test 3.3 G/DL 1.9-3.7 code = 2240) CALC A/G RATIO (test 1.3 RATIO 1.0-2.6 code = 2234) BILIRUBIN, TOTAL 0.5 MG/DL See_Comment [Automated message] (test code = 2207) The syste m which generated this result transmit esdras reference range : <=1.2. The refe rence range was not u sed to interpret th is result as normal/abnormal . ALKALINE PHOSPHATASE 92 U/L 40-140 (test code = 2204) AST (test code = 35 U/L 9-40 2217) ALT (test code = 34 U/L 5-40 2218) HEMOGLOBIN [id number] 02:13:42 Test Item Value Reference Range Interpretation Comments HEMOGLOBIN A1c (test 6.8 % 4.2-5.6 H [employer] AN DIABETES code = 20779) ASSOCIATION IDELINES FOR HGB A1C: PREDIABETES/INC REASED [...] ALTERN ATE TESTING OR LABORATORY C ONSULTATION. UNLESS OTHERWIS E INDICATED, ALL TESTING PER [facility] ATCLINICAL PATH [facility]. [address] [place] [address] LABORATORY DIRE CTOR: LILLI VELAZQUEZ M.D. CLIA NUMBER [id number] [facility]. [id number] CBC W/AUTO DIFF WITH [id number] 02:02:15 Test Item Value Reference Range Interpretation Comments WBC (test code = 6.8 K/UL 3.5-11.0 1001) RBC (test code = 3.76 M/UL 3.80-5.40 L 1002) HEMOGLOBIN (test code 10.4 G/DL 11.5-15.5 L = 1003) HEMATOCRIT (test code 32.8 % 34.0-45.0 L = 1004) MCV (test code = 87.2 fL 80.0-99.0 1005) MCH (test code = 27.7 PG 25.0-33.0 1006) MCHC (test code = 31.7 G/DL 31.0-36.0 1007) RDW (test code = 13.6 % 11.5-15.0 1038) NEUTROPHILS (test 70.2 % code = 1008) LYMPHOCYTES (test 17.6 % code = 1010) MONOCYTES (test code 7.2 % = 1011) EOSINOPHILS (test 4.3 % code = 1012) BASOPHILS (test code 0.4 % = 1013) IMMATURE GRANULOCYTES 0.3 % (test code = 1036) NUCLEATED RBCS (test 0.0 /100 WBC'S See_Comment [Aut omated code = 1065) message] The sy stem which generated this result transmitted reference range : 0.0. The refere nce range was not u sed to interpret th is result as normal/abnormal . PLATELET COUNT (test 104 K/UL 130-400 L code = 1015) ABSOLUTE NEUTROPHILS 4.74 K/UL 1.50-7.50 (test code = 1066) ABSOLUTE LYMPHOCYTES 1.19 K/UL 1.00-4.00 (test code = 1067) ABSOLUTE MONOCYTES 0.49 K/UL 0.20-1.00 (test code = 1068) ABSOLUTE EOSINOPHILS 0.29 K/UL 0.00-0.50 (test code = 1040) ABSOLUTE BASOPHILS 0.03 K/UL 0.00-0.20 (test code = 1069) ABS IMMATURE 0.02 K/UL 0.00-0.10 GRANULOCYTES (test code = 1020) ABS NUCLEATED RBCS 0.00 K/UL 0.00-0.11 (test code = 60781) COMPREHENSIVE METABOLIC [id number] 00:00:00 Test Item Value Reference Range Interpretation Comments GLUCOSE (test code = 2217) 169 MG/DL BUN (test code = 2208) 17 MG/DL CREATININE (test code = 2214) 0.86 MG/DL eGFR (2020 CKD-EPI) (test code 76 ML/MIN/1.73 = 33167) CALC BUN/CREAT (test code = 20 RATIO 2235) SODIUM (test code = 2231) 141 MEQ/L POTASSIUM (test code = 2228) 4.3 MEQ/L CHLORIDE (test code = 2215) 99 MEQ/L CARBON DIOXIDE (test code = 25 MEQ/L 2205) CALCIUM (test code = 2209) 9.6 MG/DL PROTEIN, TOTAL (test code = 7.6 G/DL 2228) ALBUMIN (test code = 2201) 4.3 G/DL CALC GLOBULIN (test code = 3.3 G/DL 2239) CALC A/G RATIO (test code = 1.3 RATIO 2234) BILIRUBIN, TOTAL (test code = 0.5 MG/DL 2206) ALKALINE PHOSPHATASE (test 92 U/L code = 2204) AST (test code = 2218) 35 U/L ALT (test code = 2219) 34 U/L COMPREHENSIVE METABOLIC [id number] 00:00:00 Test Item Value Reference Range Interpretation Comments GLUCOSE (test code = 2217) 169 MG/DL BUN (test code = 2208) 17 MG/DL CREATININE (test code = 2214) 0.86 MG/DL eGFR (2020 CKD-EPI) (test code 76 ML/MIN/1.73 = 05025) CALC BUN/CREAT (test code = 20 RATIO 2235) SODIUM (test code = 2231) 141 MEQ/L POTASSIUM (test code = 2228) 4.3 MEQ/L CHLORIDE (test code = 2215) 99 MEQ/L CARBON DIOXIDE (test code = 25 MEQ/L 2205) CALCIUM (test code = 2209) 9.6 MG/DL PROTEIN, TOTAL (test code = 7.6 G/DL 2228) ALBUMIN (test code = 2201) 4.3 G/DL CALC GLOBULIN (test code = 3.3 G/DL 2240) CALC A/G RATIO (test code = 1.3 RATIO 2234) BILIRUBIN, TOTAL (test code = 0.5 MG/DL 2206) ALKALINE PHOSPHATASE (test 92 U/L code = 2204) AST (test code = 2218) 35 U/L ALT (test code = 2219) 34 U/L CBC W/AUTO [id number] 00:00:00 Test Item Value Reference Range Interpretation Comments WBC (test code = 1001) 6.8 K/UL RBC (test code = 1002) 3.76 M/UL HEMOGLOBIN (test code = 1003) 10.4 G/DL HEMATOCRIT (test code = 1004) 32.8 % MCV (test code = 1005) 87.2 fL MCH (test code = 1006) 27.7 PG MCHC (test code = 1007) 31.7 G/DL RDW (test code = 1038) 13.6 % NEUTROPHILS (test code = 1008) 70.2 % LYMPHOCYTES (test code = 1010) 17.6 % MONOCYTES (test code = 1011) 7.2 % EOSINOPHILS (test code = 1012) 4.3 % BASOPHILS (test code = 1013) 0.4 % IMMATURE GRANULOCYTES (test 0.3 % code = 1036) NUCLEATED RBCS (test code = 0.0 /100WBC'S 1065) PLATELET COUNT (test code = 104 K/UL 1015) ABSOLUTE NEUTROPHILS (test code 4.74 K/UL = 1066) ABSOLUTE LYMPHOCYTES (test code 1.19 K/UL = 1067) ABSOLUTE MONOCYTES (test code = 0.49 K/UL 1068) ABSOLUTE EOSINOPHILS (test code 0.29 K/UL = 1040) ABSOLUTE BASOPHILS (test code = 0.03 K/UL 1069) ABS IMMATURE GRANULOCYTES (test 0.02 K/UL code = 1020) ABS NUCLEATED RBCS (test code = 0.00 K/UL 18326) CBC W/AUTO [id number] 00:00:00 Test Item Value Reference Range Interpretation Comments WBC (test code = 1001) 6.8 K/UL RBC (test code = 1002) 3.76 M/UL HEMOGLOBIN (test code = 1003) 10.4 G/DL HEMATOCRIT (test code = 1004) 32.8 % MCV (test code = 1005) 87.2 fL MCH (test code = 1006) 27.7 PG MCHC (test code = 1007) 31.7 G/DL RDW (test code = 1038) 13.6 % NEUTROPHILS (test code = 1008) 70.2 % LYMPHOCYTES (test code = 1010) 17.6 % MONOCYTES (test code = 1011) 7.2 % EOSINOPHILS (test code = 1012) 4.3 % BASOPHILS (test code = 1013) 0.4 % IMMATURE GRANULOCYTES (test 0.3 % code = 1036) NUCLEATED RBCS (test code = 0.0 /100WBC'S 1065) PLATELET COUNT (test code = 104 K/UL 1015) ABSOLUTE NEUTROPHILS (test code 4.74 K/UL = 1066) ABSOLUTE LYMPHOCYTES (test code 1.19 K/UL = 1067) ABSOLUTE MONOCYTES (test code = 0.49 K/UL 1068) ABSOLUTE EOSINOPHILS (test code 0.29 K/UL = 1040) ABSOLUTE BASOPHILS (test code = 0.03 K/UL 1069) ABS IMMATURE GRANULOCYTES (test 0.02 K/UL code = 1020) ABS NUCLEATED RBCS (test code = 0.00 K/UL 32903) CBC W/AUTO [id number] 00:00:00 Test Item Value Reference Range Interpretation Comments WBC (test code = 1001) 6.8 K/UL RBC (test code = 1002) 3.76 M/UL HEMOGLOBIN (test code = 1003) 10.4 G/DL HEMATOCRIT (test code = 1004) 32.8 % MCV (test code = 1005) 87.2 fL MCH (test code = 1006) 27.7 PG MCHC (test code = 1007) 31.7 G/DL RDW (test code = 1038) 13.6 % NEUTROPHILS (test code = 1008) 70.2 % LYMPHOCYTES (test code = 1010) 17.6 % MONOCYTES (test code = 1011) 7.2 % EOSINOPHILS (test code = 1012) 4.3 % BASOPHILS (test code = 1013) 0.4 % IMMATURE GRANULOCYTES (test 0.3 % code = 1036) NUCLEATED RBCS (test code = 0.0 /100WBC'S 1065) PLATELET COUNT (test code = 104 K/UL 1015) ABSOLUTE NEUTROPHILS (test code 4.74 K/UL = 1066) ABSOLUTE LYMPHOCYTES (test code 1.19 K/UL = 1067) ABSOLUTE MONOCYTES (test code = 0.49 K/UL 1068) ABSOLUTE EOSINOPHILS (test code 0.29 K/UL = 1040) ABSOLUTE BASOPHILS (test code = 0.03 K/UL 1069) ABS IMMATURE GRANULOCYTES (test 0.02 K/UL code = 1020) ABS NUCLEATED RBCS (test code = 0.00 K/UL 23841) TSH, THIRD [id number] 00:00:00 Test Item Value Reference Range Interpretation Comments TSH, THIRD GENERATION (test code 2.700 UIU/ML = 2821) TSH, THIRD [id number] 00:00:00 Test Item Value Reference Range Interpretation Comments TSH, THIRD GENERATION (test code 2.700 UIU/ML = 2821) TSH, THIRD [id number] 00:00:00 Test Item Value Reference Range Interpretation Comments TSH, THIRD GENERATION (test code 2.700 UIU/ML = 2821) HEMOGLOBIN [id number] 00:00:00 Test Item Value Reference Range Interpretation Comments HEMOGLOBIN A1c (test code = 77429) 6.8 % HEMOGLOBIN [id number] 00:00:00 Test Item Value Reference Range Interpretation Comments HEMOGLOBIN A1c (test code = 89245) 6.8 % HEMOGLOBIN [id number] 00:00:00 Test Item Value Reference Range Interpretation Comments HEMOGLOBIN A1c (test code = 10450) 6.8 % VITAMIN D, 25 [id number] 06:58:12 Test Item Value Reference Range Interpretation Comments VITAMIN D, 25 OH 18 NG/ML SEE BELOW L NOTE: 25-H YDROXYVITAMIN D (test code = 4958) ASSAY INC LUDES 25-HYDROXYVITAM IN D2 AND D3. METHODOLOGY IS CHEMILUMINESCEN T IMMUNOASSAY. * INTERPRETIVE RA NGES PEDIATRIC (<17 YEARS) . . . . . . . . . . . NG/ML 20-100ADULT: IN SUFFICIENT . . . . . . . . . . . . . . NG/ML <20 SUBOP TIMAL . . . . . . . . . . . . . . . NG/ML 20-29 OPT IMAL . . . . . . . . . . . . . . . . . NG/ML 30-100 UN LESS OTHERWISE INDIC ATED, ALL TESTING PERFORM ED ATCLINICAL PATH [facility]. [address] [place] [address] LABORATORY DIRE CTOR: Radha LOAIZA. CLIA NUMBER [id number] CAP ACCREDITATION N O. [id number] TSH, THIRD [id number] 06:45:08 Test Item Value Reference Range Interpretation Comments TSH, THIRD GENERATION (test code 1.290 UIU/ML 0.400-4.100 = 2821) VITAMIN [id number] 06:45:08 Test Item Value Reference Range Interpretation Comments VITAMIN B-12 (test code = 2840) 647 PG/ML 200-950 COMPREHENSIVE METABOLIC [id number] 05:39:52 Test Item Value Reference Range Interpretation Comments GLUCOSE (test code = 119 MG/DL 70-99 H 2216) BUN (test code = 19 MG/DL 11-26) CREATININE (test 0.98 MG/DL 0.60-1.30 code = 2214) eGFR (2020 CKD-EPI) 65 ML/MIN/1.73 >60 (test code = 61723) CALC BUN/CREAT (test 19 RATIO 6-28 code = 223) SODIUM (test code = 137 MEQ/L 307-346 9368) POTASSIUM (test code 4.9 MEQ/L 3.5-5.4 = 2227) CHLORIDE (test code 97 MEQ/L 95-107 = 2214) CARBON DIOXIDE (test 23 MEQ/L 19-31 code = 220) CALCIUM (test code = 9.7 MG/DL 8.5-10.5 2208) PROTEIN, TOTAL (test 7.9 G/DL 6.1-8.3 code = 222) ALBUMIN (test code = 4.6 G/DL 3.5-5.2 2200) CALC GLOBULIN (test 3.3 G/DL 1.9-3.7 code = 224) CALC A/G RATIO (test 1.4 RATIO 1.0-2.6 code = 223) BILIRUBIN, TOTAL 0.3 MG/DL See_Comment [Automated message] (test code = 2206) The syste [employer] which generated this result transmit esdras reference range : <=1.2. The refe rence range was not u sed to interpret th is result as normal/abnormal . ALKALINE PHOSPHATASE 79 U/L 40-140 (test code = 2203) AST (test code = 48 U/L 9-40 H 2217) ALT (test code = 48 U/L 5-40 H 2218) CBC W/AUTO DIFF WITH [id number] 02:09:53 Test Item Value Reference Range Interpretation [...] RBCS 0.00 K/UL 0.00-0.11 (test code = 42014) TSH, THIRD [id number] 00:00:00 Test Item Value Reference Range Interpretation Comments TSH, THIRD GENERATION (test code 1.290 UIU/ML = 2821) TSH, THIRD [id number] 00:00:00 Test Item Value Reference Range Interpretation Comments TSH, THIRD GENERATION (test code 1.290 UIU/ML = 2821) TSH, THIRD [id number] 00:00:00 Test Item Value Reference Range Interpretation Comments TSH, THIRD GENERATION (test code 1.290 UIU/ML = 2821) CBC W/AUTO [id number] 00:00:00 Test Item Value Reference Range Interpretation Comments WBC (test code = 1001) 7.0 K/UL RBC (test code = 1002) 3.83 M/UL HEMOGLOBIN (test code = 1003) 10.9 G/DL HEMATOCRIT (test code = 1004) 33.2 % MCV (test code = 1005) 86.7 fL MCH (test code = 1006) 28.5 PG MCHC (test code = 1007) 32.8 G/DL RDW (test code = 1038) 15.2 % NEUTROPHILS (test code = 1008) 63.1 % LYMPHOCYTES (test code = 1010) 28.0 % MONOCYTES (test code = 1011) 6.4 % EOSINOPHILS (test code = 1012) 1.6 % BASOPHILS (test code = 1013) 0.6 % IMMATURE GRANULOCYTES (test 0.3 % code = 1036) NUCLEATED RBCS (test code = 0.0 /100WBC'S 1065) PLATELET COUNT (test code = 115 K/UL 1015) ABSOLUTE NEUTROPHILS (test code 4.41 K/UL = 1066) ABSOLUTE LYMPHOCYTES (test code 1.96 K/UL = 1067) ABSOLUTE MONOCYTES (test code = 0.45 K/UL 1068) ABSOLUTE EOSINOPHILS (test code 0.11 K/UL = 1040) ABSOLUTE BASOPHILS (test code = 0.04 K/UL 1069) ABS IMMATURE GRANULOCYTES (test 0.02 K/UL code = 1020) ABS NUCLEATED RBCS (test code = 0.00 K/UL 35357) CBC W/AUTO [id number] 00:00:00 Test Item Value Reference Range Interpretation Comments WBC (test code = 1001) 7.0 K/UL RBC (test code = 1002) 3.83 M/UL HEMOGLOBIN (test code = 1003) 10.9 G/DL HEMATOCRIT (test code = 1004) 33.2 % MCV (test code = 1005) 86.7 fL MCH (test code = 1006) 28.5 PG MCHC (test code = 1007) 32.8 G/DL RDW (test code = 1038) 15.2 % NEUTROPHILS (test code = 1008) 63.1 % LYMPHOCYTES (test code = 1010) 28.0 % MONOCYTES (test code = 1011) 6.4 % EOSINOPHILS (test code = 1012) 1.6 % BASOPHILS (test code = 1013) 0.6 % IMMATURE GRANULOCYTES (test 0.3 % code = 1036) NUCLEATED RBCS (test code = 0.0 /100WBC'S 1065) PLATELET COUNT (test code = 115 K/UL 1015) ABSOLUTE NEUTROPHILS (test code 4.41 K/UL = 1066) ABSOLUTE LYMPHOCYTES (test code 1.96 K/UL = 1067) ABSOLUTE MONOCYTES (test code = 0.45 K/UL 1068) ABSOLUTE EOSINOPHILS (test code 0.11 K/UL = 1040) ABSOLUTE BASOPHILS (test code = 0.04 K/UL 1069) ABS IMMATURE GRANULOCYTES (test 0.02 K/UL code = 1020) ABS NUCLEATED RBCS (test code = 0.00 K/UL 74854) CBC W/AUTO [id number] 00:00:00 Test Item Value Reference Range Interpretation Comments WBC (test code = 1001) 7.0 K/UL RBC (test code = 1002) 3.83 M/UL HEMOGLOBIN (test code = 1003) 10.9 G/DL HEMATOCRIT (test code = 1004) 33.2 % MCV (test code = 1005) 86.7 fL MCH (test code = 1006) 28.5 PG MCHC (test code = 1007) 32.8 G/DL RDW (test code = 1038) 15.2 % NEUTROPHILS (test code = 1008) 63.1 % LYMPHOCYTES (test code = 1010) 28.0 % MONOCYTES (test code = 1011) 6.4 % EOSINOPHILS (test code = 1012) 1.6 % BASOPHILS (test code = 1013) 0.6 % IMMATURE GRANULOCYTES (test 0.3 % code = 1036) NUCLEATED RBCS (test code = 0.0 /100WBC'S 1065) PLATELET COUNT (test code = 115 K/UL 1015) ABSOLUTE NEUTROPHILS (test code 4.41 K/UL = 1066) ABSOLUTE LYMPHOCYTES (test code 1.96 K/UL = 1067) ABSOLUTE MONOCYTES (test code = 0.45 K/UL 1068) ABSOLUTE EOSINOPHILS (test code 0.11 K/UL = 1040) ABSOLUTE BASOPHILS (test code = 0.04 K/UL 1069) ABS IMMATURE GRANULOCYTES (test 0.02 K/UL code = 1020) ABS NUCLEATED RBCS (test code = 0.00 K/UL 09151) COMPREHENSIVE METABOLIC [id number] 00:00:00 Test Item Value Reference Range Interpretation Comments GLUCOSE (test code = 2217) 119 MG/DL BUN (test code = 2208) 19 MG/DL CREATININE (test code = 2214) 0.98 MG/DL eGFR (2020 CKD-EPI) (test code 65 ML/MIN/1.73 = 48448) CALC BUN/CREAT (test code = 19 RATIO 2235) SODIUM (test code = 2231) 137 MEQ/L POTASSIUM (test code = 2228) 4.9 MEQ/L CHLORIDE (test code = 2215) 97 MEQ/L CARBON DIOXIDE (test code = 23 MEQ/L 2206) CALCIUM (test code = 2209) 9.7 MG/DL PROTEIN, TOTAL (test code = 7.9 G/DL 2228) ALBUMIN (test code = 2201) 4.6 G/DL CALC GLOBULIN (test code = 3.3 G/DL 2240) CALC A/G RATIO (test code = 1.4 RATIO 2234) BILIRUBIN, TOTAL (test code = 0.3 MG/DL 2206) ALKALINE PHOSPHATASE (test 79 U/L code = 2204) AST (test code = 2218) 48 U/L ALT (test code = 2219) 48 U/L COMPREHENSIVE METABOLIC [id number] 00:00:00 Test Item Value Reference Range Interpretation Comments GLUCOSE (test code = 2217) 119 MG/DL BUN (test code = 2208) 19 MG/DL CREATININE (test code = 2214) 0.98 MG/DL eGFR (2020 CKD-EPI) (test code 65 ML/MIN/1.73 = 58068) CALC BUN/CREAT (test code = 19 RATIO 2235) SODIUM (test code = 2231) 137 MEQ/L POTASSIUM (test code = 2228) 4.9 MEQ/L CHLORIDE (test code = 2215) 97 MEQ/L CARBON DIOXIDE (test code = 23 MEQ/L 2205) CALCIUM (test code = 2209) 9.7 MG/DL PROTEIN, TOTAL (test code = 7.9 G/DL 2228) ALBUMIN (test code = 2201) 4.6 G/DL CALC GLOBULIN (test code = 3.3 G/DL 2240) CALC A/G RATIO (test code = 1.4 RATIO 2234) BILIRUBIN, TOTAL (test code = 0.3 MG/DL 2206) ALKALINE PHOSPHATASE (test 79 U/L code = 2204) AST (test code = 2218) 48 U/L ALT (test code = 2219) 48 U/L VITAMIN [id number] 00:00:00 Test Item Value Reference Range Interpretation Comments VITAMIN B-12 (test code = 2840) 647 PG/ML VITAMIN [id number] 00:00:00 Test Item Value Reference Range Interpretation Comments VITAMIN B-12 (test code = 2840) 647 PG/ML VITAMIN [id number] 00:00:00 Test Item Value Reference Range Interpretation Comments VITAMIN B-12 (test code = 2840) 647 PG/ML VITAMIN D, 25 [id number] 00:00:00 Test Item Value Reference Range Interpretation Comments VITAMIN D, 25 OH (test code = 4958) 18 NG/ML VITAMIN D, 25 [id number] 00:00:00 Test Item Value Reference Range Interpretation Comments VITAMIN D, 25 OH (test code = 4958) 18 NG/ML CULTURE, [id number] 12:01:26SPECIMEN NUMBER: [id number] CULTURE, URINE SPECIMEN NUMBER: [id number] SPECIMEN COMMENT: URINE SOURCE:URINE REPORT STATUS: FINAL FINAL REPORT: 10/03/2021 10-50,000 CFU/ML MIXED UROGENITAL SOBEIDA UNLESS OT HERWISE INDICATED, ALL TESTING PERFORMED [facility] [address] [place] [address] FLATWORK FINISHER: LILLI VELAZQUEZ M.D. CLIA NUMBER [id number] [facility] [place]. [id number], [id number] 00:00:00 Test Item Value Reference Range Interpretation Comments CULTURE, URINE (test SPECIMEN NUMBER: code = 02456) [id number] CULTURE, [id number] 00:00:00 Test Item Value Reference Range Interpretation Comments CULTURE, URINE (test SPECIMEN NUMBER: code = 01022) [id number] CULTURE, [id number] 00:00:00 Test Item Value Reference Range Interpretation Comments CULTURE, URINE (test SPECIMEN NUMBER: code = 44545) [id number] CULTURE, [id number] 00:00:00 Test Item Value Reference Range Interpretation Comments CULTURE, URINE (test SPECIMEN NUMBER: code = 42839) [id number] CULTURE, [id number] 00:00:00 Test Item Value Reference Range Interpretation Comments CULTURE, URINE (test SPECIMEN NUMBER: code = 01136) [id number] TSH, THIRD [id number] 06:16:09 Test Item Value Reference Range Interpretation Comments TSH, THIRD <0.010 UIU/ML 0.400-4.100 L UNLESS OTHERW ISE GENERATION (test INDICATED, ALL code = 2821) TESTING PERFORM ED [facility] [place] [address] [place] [address] RACH SHARP DIRECTOR: LILLI VELAZQUEZ M.D. [place] NUMBER [id number] CAP ACCREDITATION N O. [id number] HEMOGLOBIN [id number] 05:23:24 Test Item Value Reference Range Interpretation Comments HEMOGLOBIN A1c (test 6.7 % 4.2-5.6 H AMERIC AN DIABETES code = 15641) ASSOCIATION IDELINES FOR HGB A1C: PREDIABETES/INC REASED [...] TESTING OR LABORATORY C ONSULTATION. COMPREHENSIVE METABOLIC [id number] 04:45:06 Test Item Value Reference Range Interpretation Comments GLUCOSE (test code = 266 MG/DL 70-99 H 2216) BUN (test code = 17 MG/DL -2207) CREATININE (test 0.92 MG/DL 0.60-1.30 code = 2214) eGFR (2020 CKD-EPI) 70 ML/MIN/1.73 >60 (test code = 25979) CALC BUN/CREAT (test 18 RATIO 6-28 code = 2235) SODIUM (test code = 136 MEQ/L 182-969 7075) POTASSIUM (test code 5.3 MEQ/L 3.5-5.4 = 2227) CHLORIDE (test code 98 MEQ/L 95-107 = 2214) CARBON DIOXIDE (test 22 MEQ/L 19-31 code = 2206) CALCIUM (test code = 8.8 MG/DL 8.5-10.5 2208) PROTEIN, TOTAL (test 7.4 G/DL 6.1-8.3 code = 2229) ALBUMIN (test code = 4.1 G/DL 3.5-5.2 2200) CALC GLOBULIN (test 3.3 G/DL 1.9-3.7 code = 224) CALC A/G RATIO (test 1.2 RATIO 1.0-2.6 [...] code = 29 U/L 5-40 2218) HEMOGLOBIN [id number] 00:00:00 Test Item Value Reference Range Interpretation Comments HEMOGLOBIN A1c (test code = 28678) 6.7 % HEMOGLOBIN [id number] 00:00:00 Test Item Value Reference Range Interpretation Comments HEMOGLOBIN A1c (test code = 56323) 6.7 % HEMOGLOBIN [id number] 00:00:00 Test Item Value Reference Range Interpretation Comments HEMOGLOBIN A1c (test code = 08615) 6.7 % COMPREHENSIVE METABOLIC [id number] 00:00:00 Test Item Value Reference Range Interpretation Comments GLUCOSE (test code = 2217) 266 MG/DL BUN (test code = 2208) 17 MG/DL CREATININE (test code = 2214) 0.92 MG/DL eGFR (2020 CKD-EPI) (test code 70 ML/MIN/1.73 = 92200) CALC BUN/CREAT (test code = 18 RATIO 2234) SODIUM (test code = 2231) 136 MEQ/L POTASSIUM (test code = 2228) 5.3 MEQ/L CHLORIDE (test code = 2215) 98 MEQ/L CARBON DIOXIDE (test code = 22 MEQ/L 2205) CALCIUM (test code = 2208) 8.8 MG/DL PROTEIN, TOTAL (test code = 7.4 G/DL 2228) ALBUMIN (test code = 220) 4.1 G/DL CALC GLOBULIN (test code = 3.3 G/DL 2239) CALC A/G RATIO (test code = 1.2 RATIO 2233) BILIRUBIN, TOTAL (test code = 0.3 MG/DL 2206) ALKALINE PHOSPHATASE (test 88 U/L code = 2204) AST (test code = 2218) 32 U/L ALT (test code = 2219) 29 U/L COMPREHENSIVE METABOLIC [id number] 00:00:00 Test Item Value Reference Range Interpretation Comments GLUCOSE (test code = 2217) 266 MG/DL BUN (test code = 2208) 17 MG/DL CREATININE (test code = 2214) 0.92 MG/DL eGFR (2020 CKD-EPI) (test code 70 ML/MIN/1.73 = 34346) CALC BUN/CREAT (test code = 18 RATIO [...] CALC GLOBULIN (test code = 3.3 G/DL 0) CALC A/G RATIO (test code = 1.2 RATIO 4) BILIRUBIN, TOTAL (test code = 0.3 MG/DL 2206) ALKALINE PHOSPHATASE (test 88 U/L code = 2204) AST (test code = 2218) 32 U/L ALT (test code = 2219) 29 U/L [id number] 00:00:00 Test Item Value Reference Range Interpretation Comments TSH, THIRD GENERATION (test <0.010 UIU/ML code = 2821) [id number] 00:00:00 Test Item Value Reference Range Interpretation Comments TSH, THIRD GENERATION (test <0.010 UIU/ML code = 2821) [id number] 00:00:00 Test Item Value Reference Range Interpretation Comments TSH, THIRD GENERATION (test <0.010 UIU/ML code = 2821) HEMOGLOBIN [id number] 00:00:00 Test Item Value Reference Range Interpretation Comments HEMOGLOBIN A1c (test code = 02245) 6.7 % HEMOGLOBIN [id number] 00:00:00 Test Item Value Reference Range Interpretation Comments HEMOGLOBIN A1c (test code = 87923) 6.7 % COMPREHENSIVE METABOLIC [id number] 00:00:00 Test Item Value Reference Range Interpretation Comments GLUCOSE (test code = 2217) 266 MG/DL BUN (test code = 2208) 17 MG/DL CREATININE (test code = 2214) 0.92 MG/DL eGFR (2020 CKD-EPI) (test code 70 ML/MIN/1.73 = 56383) CALC BUN/CREAT (test code = 18 RATIO [...] ALT (test code = 2219) 29 U/L [id number] 00:00:00 Test Item Value Reference Range Interpretation Comments TSH, THIRD GENERATION (test <0.010 UIU/ML code = 2821) [id number] 00:00:00 Test Item Value Reference Range Interpretation Comments TSH, THIRD GENERATION (test <0.010 UIU/ML code = 2821) HEMOGLOBIN [id number] 00:00:00 Test Item Value Reference Range Interpretation Comments HEMOGLOBIN A1c (test code = 29252) 6.7 % HEMOGLOBIN [id number] 00:00:00 Test Item Value Reference Range Interpretation Comments HEMOGLOBIN A1c (test code = 45421) 6.7 % HEMOGLOBIN [id number] 00:00:00 Test Item Value Reference Range Interpretation Comments HEMOGLOBIN A1c (test code = 90456) 6.7 % COMPREHENSIVE METABOLIC [id number] 00:00:00 Test Item Value Reference Range Interpretation Comments GLUCOSE (test code = 2217) 266 MG/DL BUN (test code = 2208) 17 MG/DL CREATININE (test code = 2214) 0.92 MG/DL eGFR (2020 CKD-EPI) (test code 70 ML/MIN/1.73 = 16928) CALC BUN/CREAT (test code = 18 RATIO [...] code = 2219) 29 U/L COMPREHENSIVE METABOLIC [id number] 00:00:00 Test Item Value Reference Range Interpretation Comments GLUCOSE (test code = 2217) 266 MG/DL BUN (test code = 2208) 17 MG/DL CREATININE (test code = 2214) 0.92 MG/DL eGFR (2020 CKD-EPI) (test code 70 ML/MIN/1.73 = 71741) CALC BUN/CREAT (test code = 18 RATIO [...] ALT (test code = 2219) 29 U/L [id number] 00:00:00 Test Item Value Reference Range Interpretation Comments TSH, THIRD GENERATION (test <0.010 UIU/ML code = 2821) [id number] 00:00:00 Test Item Value Reference Range Interpretation Comments TSH, THIRD GENERATION (test <0.010 UIU/ML code = 2821) [id number] 00:00:00 Test Item Value Reference Range Interpretation Comments TSH, THIRD GENERATION (test <0.010 UIU/ML code = 2821) TSH, THIRD [id number] 06:18:54 Test Item Value Reference Range Interpretation Comments TSH, THIRD GENERATION (test code 0.190 UIU/ML 0.400-4.100 L = 2821) HEMOGLOBIN [id number] 03:11:56 Test Item Value Reference Range Interpretation Comments HEMOGLOBIN A1c (test 8.4 % 4.2-5.6 H AMERIC AN DIABETES code = 37154) ASSOCIATION IDELINES FOR HGB A1C: PREDIABETES/INC REASED [...] TESTING OR LABORATORY C ONSULTATION. COMPREHENSIVE METABOLIC [id number] 03:11:06 Test Item Value Reference Range Interpretation Comments GLUCOSE (test code = 141 MG/DL 70-99 H 2216) BUN (test code = 31 MG/DL 8-23 H 2207) CREATININE (test 1.07 MG/DL 0.60-1.30 code = 2214) eGFR (2020 CKD-EPI) 59 ML/MIN/1.73 >60 L (test code = 94732) CALC BUN/CREAT (test 29 RATIO 6-28 H code = 2235) SODIUM (test code = 141 MEQ/L 938-221 3417) POTASSIUM (test code 4.7 MEQ/L 3.5-5.4 = 8) CHLORIDE (test code 99 MEQ/L 95-107 = 5) CARBON DIOXIDE (test 26 MEQ/L 19-31 code [...] = 41 U/L 5-40 H 2218) LIPID [id number] 03:11:06 Test Item Value Reference Range Interpretation [...] MOREINFORMATION , SEE CLIENT ANNOUNCE MENT AT [email or web address] RISK RATIO LDL/HDL 1.28 RATIO <3.22 (test code = 2238) IRON, [id number] 03:11:06 Test Item Value Reference Range Interpretation Comments IRON, SERUM (test 59 UG/DL 37-145 UNLESS OT HERWISE code = 2222) INDICATED, ALL TESTING PERFORMED ATCLI NICAL PATHOLOGY LABOR [employer] [address] [place] [id number] [facility] DIRECTOR: LILLI VELAZQUEZ M.D. GIBRANIA NUMBER [id number] [facility] ACCREDITATION N O. [id number] HEMOGLOBIN [id number] 00:00:00 Test Item Value Reference Range Interpretation Comments HEMOGLOBIN A1c (test code = 79541) 8.4 % HEMOGLOBIN [id number] 00:00:00 Test Item Value Reference Range Interpretation Comments HEMOGLOBIN A1c (test code = 70293) 8.4 % HEMOGLOBIN [id number] 00:00:00 Test Item Value Reference Range Interpretation Comments HEMOGLOBIN A1c (test code = 73428) 8.4 % COMPREHENSIVE METABOLIC [id number] 00:00:00 Test Item Value Reference Range Interpretation Comments GLUCOSE (test code = 2217) 141 MG/DL BUN (test code = 2208) 31 MG/DL CREATININE (test code = 2214) 1.07 MG/DL eGFR (2020 CKD-EPI) (test code 59 ML/MIN/1.73 = 31743) CALC BUN/CREAT (test code = 29 RATIO [...] CALC GLOBULIN (test code = 3.5 G/DL 2240) CALC A/G RATIO (test code = 1.3 RATIO 2234) BILIRUBIN, TOTAL (test code = 0.4 MG/DL 2206) ALKALINE PHOSPHATASE (test 67 U/L code = 2204) AST (test code = 2218) 49 U/L ALT (test code = 2219) 41 U/L COMPREHENSIVE METABOLIC [id number] 00:00:00 Test Item Value Reference Range Interpretation Comments GLUCOSE (test code = 2217) 141 MG/DL BUN (test code = 2208) 31 MG/DL CREATININE (test code = 2214) 1.07 MG/DL eGFR (2020 CKD-EPI) (test code 59 ML/MIN/1.73 = 59915) CALC BUN/CREAT (test code = 29 RATIO [...] (test code = 2219) 41 U/L LIPID [id number] 00:00:00 Test Item Value Reference Range Interpretation Comments CHOLESTEROL (test code = 2210) 113 MG/DL TRIGLYCERIDES (test code = 2232) 165 MG/DL HDL CHOLESTEROL (test code = 2220) 39 MG/DL CALC LDL CHOL (test code = 2237) 50 MG/DL RISK RATIO LDL/HDL (test code = 1.28 RATIO 2238) LIPID [id number] 00:00:00 Test Item Value Reference Range Interpretation Comments CHOLESTEROL (test code = 2210) 113 MG/DL TRIGLYCERIDES (test code = 2232) 165 MG/DL HDL CHOLESTEROL (test code = 2220) 39 MG/DL CALC LDL CHOL (test code = 2237) 50 MG/DL RISK RATIO LDL/HDL (test code = 1.28 RATIO 2238) [id number] 00:00:00 Test Item Value Reference Range Interpretation Comments TSH, THIRD GENERATION (test code 0.190 UIU/ML = 2821) [id number] 00:00:00 Test Item Value Reference Range Interpretation Comments TSH, THIRD GENERATION (test code 0.190 UIU/ML = 2821) [id number] 00:00:00 Test Item Value Reference Range Interpretation Comments TSH, THIRD GENERATION (test code 0.190 UIU/ML = 2821) IRON, [id number] 00:00:00 Test Item Value Reference Range Interpretation Comments IRON, SERUM (test code = 2222) 59 UG/DL IRON, [id number] 00:00:00 Test Item Value Reference Range Interpretation Comments IRON, SERUM (test code = 2222) 59 UG/DL HEMOGLOBIN [id number] 00:00:00 Test Item Value Reference Range Interpretation Comments HEMOGLOBIN A1c (test code = 10950) 8.4 % HEMOGLOBIN [id number] 00:00:00 Test Item Value Reference Range Interpretation Comments HEMOGLOBIN A1c (test code = 33975) 8.4 % COMPREHENSIVE METABOLIC [id number] 00:00:00 Test Item Value Reference Range Interpretation Comments GLUCOSE (test code = 2217) 141 MG/DL BUN (test code = 2208) 31 MG/DL CREATININE (test code = 2214) 1.07 MG/DL eGFR (2020 CKD-EPI) (test code 59 ML/MIN/1.73 = 03981) CALC BUN/CREAT (test code = 29 RATIO [...] CALC GLOBULIN (test code = 3.5 G/DL 2240) CALC A/G RATIO (test code = 1.3 RATIO 2234) BILIRUBIN, TOTAL (test code = 0.4 MG/DL 2206) ALKALINE PHOSPHATASE (test 67 U/L code = 2204) AST (test code = 2218) 49 U/L ALT (test code = 2219) 41 U/L LIPID [id number] 00:00:00 Test Item Value Reference Range Interpretation Comments CHOLESTEROL (test code = 2210) 113 MG/DL TRIGLYCERIDES (test code = 2232) 165 MG/DL HDL CHOLESTEROL (test code = 2220) 39 MG/DL CALC LDL CHOL (test code = 2237) 50 MG/DL RISK RATIO LDL/HDL (test code = 1.28 RATIO 2238) [id number] 00:00:00 Test Item Value Reference Range Interpretation Comments TSH, THIRD GENERATION (test code 0.190 UIU/ML = 2821) [id number] 00:00:00 Test Item Value Reference Range Interpretation Comments TSH, THIRD GENERATION (test code 0.190 UIU/ML = 2821) IRON, [id number] 00:00:00 Test Item Value Reference Range Interpretation Comments IRON, SERUM (test code = 2222) 59 UG/DL HEMOGLOBIN [id number] 00:00:00 Test Item Value Reference Range Interpretation Comments HEMOGLOBIN A1c (test code = 25017) 8.4 % HEMOGLOBIN [id number] 00:00:00 Test Item Value Reference Range Interpretation Comments HEMOGLOBIN A1c (test code = 15956) 8.4 % COMPREHENSIVE METABOLIC [id number] 00:00:00 Test Item Value Reference Range Interpretation Comments GLUCOSE (test code = 2217) 141 MG/DL BUN (test code = 2208) 31 MG/DL CREATININE (test code = 2214) 1.07 MG/DL eGFR (2020 CKD-EPI) (test code 59 ML/MIN/1.73 = 73122) CALC BUN/CREAT (test code = 29 RATIO [...] CALC GLOBULIN (test code = 3.5 G/DL 2240) CALC A/G RATIO (test code = 1.3 RATIO 2233) BILIRUBIN, TOTAL (test code = 0.4 MG/DL 2206) ALKALINE PHOSPHATASE (test 67 U/L code = 2204) AST (test code = 2218) 49 U/L ALT (test code = 2219) 41 U/L LIPID [id number] 00:00:00 Test Item Value Reference Range Interpretation Comments CHOLESTEROL (test code = 2210) 113 MG/DL TRIGLYCERIDES (test code = 2232) 165 MG/DL HDL CHOLESTEROL (test code = 2220) 39 MG/DL CALC LDL CHOL (test code = 2237) 50 MG/DL RISK RATIO LDL/HDL (test code = 1.28 RATIO 8) [id number] 00:00:00 Test Item Value Reference Range Interpretation Comments TSH, THIRD GENERATION (test code 0.190 UIU/ML = 2821) [id number] 00:00:00 Test Item Value Reference Range Interpretation Comments TSH, THIRD GENERATION (test code 0.190 UIU/ML = 2821) IRON, [id number] 00:00:00 Test Item Value Reference Range Interpretation Comments IRON, SERUM (test code = 2222) 59 UG/DL HEMOGLOBIN [id number] 00:00:00 Test Item Value Reference Range Interpretation Comments HEMOGLOBIN A1c (test code = 70620) 8.4 % HEMOGLOBIN [id number] 00:00:00 Test Item Value Reference Range Interpretation Comments HEMOGLOBIN A1c (test code = 91564) 8.4 % HEMOGLOBIN [id number] 00:00:00 Test Item Value Reference Range Interpretation Comments HEMOGLOBIN A1c (test code = 04217) 8.4 % COMPREHENSIVE METABOLIC [id number] 00:00:00 Test Item Value Reference Range Interpretation Comments GLUCOSE (test code = 2217) 141 MG/DL BUN (test code = 2208) 31 MG/DL CREATININE (test code = 2214) 1.07 MG/DL eGFR (2020 CKD-EPI) (test code 59 ML/MIN/1.73 = 15744) CALC BUN/CREAT (test code = 29 RATIO 5) SODIUM (test code = 2231) 141 MEQ/L [...] code = 2219) 41 U/L COMPREHENSIVE METABOLIC [id number] 00:00:00 Test Item Value Reference Range Interpretation Comments GLUCOSE (test code = 2217) 141 MG/DL BUN (test code = 2208) 31 MG/DL CREATININE (test code = 2214) 1.07 MG/DL eGFR (2020 CKD-EPI) (test code 59 ML/MIN/1.73 = 92880) CALC BUN/CREAT (test code = 29 RATIO [...] (test code = 2219) 41 U/L LIPID [id number] 00:00:00 Test Item Value Reference Range Interpretation Comments CHOLESTEROL (test code = 2210) 113 MG/DL TRIGLYCERIDES (test code = 2232) 165 MG/DL HDL CHOLESTEROL (test code = 2220) 39 MG/DL CALC LDL CHOL (test code = 2237) 50 MG/DL RISK RATIO LDL/HDL (test code = 1.28 RATIO 2238) LIPID [id number] 00:00:00 Test Item Value Reference Range Interpretation Comments CHOLESTEROL (test code = 2210) 113 MG/DL TRIGLYCERIDES (test code = 2232) 165 MG/DL HDL CHOLESTEROL (test code = 2220) 39 MG/DL CALC LDL CHOL (test code = 2237) 50 MG/DL RISK RATIO LDL/HDL (test code = 1.28 RATIO 2238) [id number] 00:00:00 Test Item Value Reference Range Interpretation Comments TSH, THIRD GENERATION (test code 0.190 UIU/ML = 2821) [id number] 00:00:00 Test Item Value Reference Range Interpretation Comments TSH, THIRD GENERATION (test code 0.190 UIU/ML = 2821) [id number] 00:00:00 Test Item Value Reference Range Interpretation Comments TSH, THIRD GENERATION (test code 0.190 UIU/ML = 2821) IRON, [id number] 00:00:00 Test Item Value Reference Range Interpretation Comments IRON, SERUM (test code = 2222) 59 UG/DL IRON, [id number] 00:00:00 Test Item Value Reference Range Interpretation Comments IRON, SERUM (test code = 2222) 59 UG/DL ALBUMIN/CREATININE RATIO, URINE, [id number] 05:57:19 Test Item Value Reference Range Interpretation Comments CREATININE, URINE, 212.0 MG/DL NOT ESTAB CONC. (test code = 2072) ALBUMIN, URINE, 16.0 MG/DL Note: Test name is RANDOM (test code changed to Urine Albumin = 26776) from [employer] in in accordance with ADA and NKF Guidelines, and Albumin/Creatin ine ratio reference inter jamshid reflects those Guidelines. Jameel lytic methodology is unchanged. No r eference interval for Ra ndom Urine Albumin i s available. CALC 75 MG/G <30 H UNLESS OTHERWI SE ALBUMIN/CREAT, RND INDICATED , ALL TESTING (test code = PERFORMED ATCLI NICAL 22123) [facility] LABOR [facility] [address] [place] [address] 4 LABORATORY DIRE CTOR: LILLI SIERRA M.D. CLIA NUMBER [id number] [place] [id number] HEMOGLOBIN [id number] 04:12:15 Test Item Value Reference Range Interpretation Comments HEMOGLOBIN A1c (test 9.1 % 4.2-5.6 H AMERIC AN DIABETES code = 47671) ASSOCIATION IDELINES FOR HGB A1C: PREDIABETES/INC REASED [...] ATE TESTING OR LABORATORY C ONSULTATION. HEMOGLOBIN [id number] 00:00:00 Test Item Value Reference Range Interpretation Comments HEMOGLOBIN A1c (test code = 31588) 9.1 % HEMOGLOBIN [id number] 00:00:00 Test Item Value Reference Range Interpretation Comments HEMOGLOBIN A1c (test code = 44153) 9.1 % HEMOGLOBIN [id number] 00:00:00 Test Item Value Reference Range Interpretation Comments HEMOGLOBIN A1c (test code = 35878) 9.1 % MICROALBUMIN/CREATININE, RANDOM AND [id number] 00:00:00 Test Item Value Reference Range Interpretation Comments CREATININE, URINE, CONC. (test 212.0 MG/DL code = 2072) ALBUMIN, URINE, RANDOM (test code 16.0 MG/DL = 95612) CALC ALBUMIN/CREAT, RND (test 75 MG/G code = 48039) MICROALBUMIN/CREATININE, RANDOM AND [id number] 00:00:00 Test Item Value Reference Range Interpretation Comments CREATININE, URINE, CONC. (test 212.0 MG/DL code = 2072) ALBUMIN, URINE, RANDOM (test code 16.0 MG/DL = 65105) CALC ALBUMIN/CREAT, RND (test 75 MG/G code = 88020) HEMOGLOBIN [id number] 00:00:00 Test Item Value Reference Range Interpretation Comments HEMOGLOBIN A1c (test code = 85938) 9.1 % HEMOGLOBIN [id number] 00:00:00 Test Item Value Reference Range Interpretation Comments HEMOGLOBIN A1c (test code = 97871) 9.1 % MICROALBUMIN/CREATININE, RANDOM AND [id number] 00:00:00 Test Item Value Reference Range Interpretation Comments CREATININE, URINE, CONC. (test 212.0 MG/DL code = 2072) ALBUMIN, URINE, RANDOM (test code 16.0 MG/DL = 54204) CALC ALBUMIN/CREAT, RND (test 75 MG/G code = 67606) HEMOGLOBIN [id number] 00:00:00 Test Item Value Reference Range Interpretation Comments HEMOGLOBIN A1c (test code = 52298) 9.1 % HEMOGLOBIN [id number] 00:00:00 Test Item Value Reference Range Interpretation Comments HEMOGLOBIN A1c (test code = 13990) 9.1 % MICROALBUMIN/CREATININE, RANDOM AND [id number] 00:00:00 Test Item Value Reference Range Interpretation Comments CREATININE, URINE, CONC. (test 212.0 MG/DL code = 2072) ALBUMIN, URINE, RANDOM (test code 16.0 MG/DL = 62967) CALC ALBUMIN/CREAT, RND (test 75 MG/G code = 75993) HEMOGLOBIN [id number] 00:00:00 Test Item Value Reference Range Interpretation Comments HEMOGLOBIN A1c (test code = 16358) 9.1 % HEMOGLOBIN [id number] 00:00:00 Test Item Value Reference Range Interpretation Comments HEMOGLOBIN A1c (test code = 26540) 9.1 % HEMOGLOBIN [id number] 00:00:00 Test Item Value Reference Range Interpretation Comments HEMOGLOBIN A1c (test code = 51442) 9.1 % MICROALBUMIN/CREATININE, RANDOM AND [id number] 00:00:00 Test Item Value Reference Range Interpretation Comments CREATININE, URINE, CONC. (test 212.0 MG/DL code = 2072) ALBUMIN, URINE, RANDOM (test code 16.0 MG/DL = 21993) CALC ALBUMIN/CREAT, RND (test 75 MG/G code = 36622) MICROALBUMIN/CREATININE, RANDOM AND [id number] 00:00:00 Test Item Value Reference Range Interpretation Comments CREATININE, URINE, CONC. (test 212.0 MG/DL code = 2072) ALBUMIN, URINE, RANDOM (test code 16.0 MG/DL = 28366) CALC ALBUMIN/CREAT, RND (test 75 MG/G code = 08821) PATHOLOGIST SMEAR [id number] 00:00:00 Test Item Value Reference Range Interpretation Comments DIAGNOSIS: (test code = 8200) (NOTE) COMMENTS: (test code = 8205) (NOTE) MICROSCOPIC DESCRIPTION: (test (NOTE) code = 8210) PATHOLOGIST: (test code = 8250) (NOTE) CPT: (test code = 8400) 45592 WBC (test code = 1001) 2.7 K/UL [...] NUCLEATED RBCS (test code = 0.00 K/UL 31552) COMMENTS (test code = 1016) (NOTE) PATHOLOGIST SMEAR [id number] 00:00:00 Test Item Value Reference Range Interpretation Comments DIAGNOSIS: (test code = 8200) (NOTE) COMMENTS: (test code = 8205) (NOTE) MICROSCOPIC DESCRIPTION: (test (NOTE) code = 8210) PATHOLOGIST: (test code = 8250) (NOTE) CPT: (test code = 8400) 16520 WBC (test code = 1001) 2.7 K/UL [...] NUCLEATED RBCS (test code = 0.00 K/UL 29394) COMMENTS (test code = 1016) (NOTE) PATHOLOGIST SMEAR [id number] 00:00:00 Test Item Value Reference Range Interpretation Comments DIAGNOSIS: (test code = 8200) (NOTE) COMMENTS: (test code = 8205) (NOTE) MICROSCOPIC DESCRIPTION: (test (NOTE) code = 8210) PATHOLOGIST: (test code = 8250) (NOTE) CPT: (test code = 8400) 93437 WBC (test code = 1001) 2.7 K/UL [...] NUCLEATED RBCS (test code = 0.00 K/UL 71357) COMMENTS (test code = 1016) (NOTE) PATHOLOGIST SMEAR [id number] 00:00:00 Test Item Value Reference Range Interpretation Comments DIAGNOSIS: (test code = 8200) (NOTE) COMMENTS: (test code = 8205) (NOTE) MICROSCOPIC DESCRIPTION: (test (NOTE) code = 8210) PATHOLOGIST: (test code = 8250) (NOTE) CPT: (test code = 8400) 87771 WBC (test code = 1001) 2.7 K/UL [...] NUCLEATED RBCS (test code = 0.00 K/UL 77569) COMMENTS (test code = 1016) (NOTE) PATHOLOGIST SMEAR [id number] 00:00:00 Test Item Value Reference Range Interpretation Comments DIAGNOSIS: (test code = 8200) (NOTE) COMMENTS: (test code = 8205) (NOTE) MICROSCOPIC DESCRIPTION: (test (NOTE) code = 8210) PATHOLOGIST: (test code = 8250) (NOTE) CPT: (test code = 8400) 63984 WBC (test code = 1001) 2.7 K/UL [...] NUCLEATED RBCS (test code = 0.00 K/UL 40388) COMMENTS (test code = 1016) (NOTE) PATHOLOGIST SMEAR [id number] 00:00:00 Test Item Value Reference Range Interpretation Comments DIAGNOSIS: (test code = 8200) (NOTE) COMMENTS: (test code = 8205) (NOTE) MICROSCOPIC DESCRIPTION: (test (NOTE) code = 8210) PATHOLOGIST: (test code = 8250) (NOTE) CPT: (test code = 8400) 98339 WBC (test code = 1001) 2.7 K/UL [...] NUCLEATED RBCS (test code = 0.00 K/UL 21613) COMMENTS (test code = 1016) (NOTE) [id number] 00:00:00 Test Item Value Reference Range Interpretation Comments FERRITIN (test code = 2074) 42 NG/ML [id number] 00:00:00 Test Item Value Reference Range Interpretation Comments FERRITIN (test code = 2074) 42 NG/ML [id number] 00:00:00 Test Item Value Reference Range Interpretation Comments TRANSFERRIN (test code = 4936) 281 MG/DL [id number] 00:00:00 Test Item Value Reference Range Interpretation Comments TRANSFERRIN (test code = 4936) 281 MG/DL IRON BINDING CAPACITY AND IRON AND % [id number] 00:00:00 Test Item Value Reference Range Interpretation Comments IRON, SERUM (test code = 2221) 28 UG/DL UNSATURATED IBC (test code = ) 315 UG/DL CALC TOTAL IBC (test code = 2076) 343 UG/DL CALC % IRON SAT (test code = 2078) 8 % IRON BINDING CAPACITY AND IRON AND % [id number] 00:00:00 Test Item Value Reference Range Interpretation Comments IRON, SERUM (test code = 2) 28 UG/DL UNSATURATED IBC (test code = 07174) 315 UG/DL CALC TOTAL IBC (test code = 2076) 343 UG/DL CALC % IRON SAT (test code = 2078) 8 % PROTIME AND [id number] 00:00:00 Test Item Value Reference Range Interpretation Comments PROTHROMBIN TIME (PT) (test code 14.8 SECONDS = 1402) INR (test code = 05660) 1.1 PTT (test code = 1403) 35.8 SECONDS PROTIME AND [id number] 00:00:00 Test Item Value Reference Range Interpretation Comments PROTHROMBIN TIME (PT) (test code 14.8 SECONDS = 1402) INR (test code = 44170) 1.1 PTT (test code = 1403) 35.8 SECONDS RHEUMATOID FACTOR, [id number] 00:00:00 Test Item Value Reference Range Interpretation Comments RHEUMATOID FACTOR, QUANT (test code <10 IU/ML = 3502) RHEUMATOID FACTOR, [id number] 00:00:00 Test Item Value Reference Range Interpretation Comments RHEUMATOID FACTOR, QUANT (test code <10 IU/ML = 3502) RHEUMATOID FACTOR, [id number] 00:00:00 Test Item Value Reference Range Interpretation Comments RHEUMATOID FACTOR, QUANT (test code <10 IU/ML = 3502) CCP [id number] 00:00:00 Test Item Value Reference Range Interpretation Comments CCP IgG (test code = 41496) <0.5 U/ML CCP [id number] 00:00:00 Test Item Value Reference Range Interpretation Comments CCP IgG (test code = 78936) <0.5 U/ML CCP [id number] 00:00:00 Test Item Value Reference Range Interpretation Comments CCP IgG (test code = 18858) <0.5 U/ML ASH (SM) [id number] 00:00:00 Test Item Value Reference Range Interpretation Comments ASH (Sm) ANTIBODY (test code = <0.2 AI 78293) ASH (SM) [id number] 00:00:00 Test Item Value Reference Range Interpretation Comments ASH (Sm) ANTIBODY (test code = <0.2 AI 21170) DNA DS [id number] 00:00:00 Test Item Value Reference Range Interpretation Comments dsDNA ANTIBODY (test code = 4287) 1.0 IU/ML DNA DS [id number] 00:00:00 Test Item Value Reference Range Interpretation Comments dsDNA ANTIBODY (test code = 4287) 1.0 IU/ML [id number] 00:00:00 Test Item Value Reference Range Interpretation Comments FERRITIN (test code = 2075) 42 NG/ML [id number] 00:00:00 Test Item Value Reference Range Interpretation Comments TRANSFERRIN (test code = 4936) 281 MG/DL IRON BINDING CAPACITY AND IRON AND % [id number] 00:00:00 Test Item Value Reference Range Interpretation Comments IRON, SERUM (test code = 2222) 28 UG/DL UNSATURATED IBC (test code = 86563) 315 UG/DL CALC TOTAL IBC (test code = 2076) 343 UG/DL CALC % IRON SAT (test code = 2078) 8 % PROTIME AND [id number] 00:00:00 Test Item Value Reference Range Interpretation Comments PROTHROMBIN TIME (PT) (test code 14.8 SECONDS = 1402) INR (test code = 74363) 1.1 PTT (test code = 1403) 35.8 SECONDS RHEUMATOID FACTOR, [id number] 00:00:00 Test Item Value Reference Range Interpretation Comments RHEUMATOID FACTOR, QUANT (test code <10 IU/ML = 3502) RHEUMATOID FACTOR, [id number] 00:00:00 Test Item Value Reference Range Interpretation Comments RHEUMATOID FACTOR, QUANT (test code <10 IU/ML = 3502) CCP [id number] 00:00:00 Test Item Value Reference Range Interpretation Comments CCP IgG (test code = 82323) <0.5 U/ML CCP [id number] 00:00:00 Test Item Value Reference Range Interpretation Comments CCP IgG (test code = 57695) <0.5 U/ML ASH (SM) [id number] 00:00:00 Test Item Value Reference Range Interpretation Comments ASH (Sm) ANTIBODY (test code = <0.2 AI 87329) DNA DS [id number] 00:00:00 Test Item Value Reference Range Interpretation Comments dsDNA ANTIBODY (test code = 4287) 1.0 IU/ML [id number] 00:00:00 Test Item Value Reference Range Interpretation Comments FERRITIN (test code = 2075) 42 NG/ML [id number] 00:00:00 Test Item Value Reference Range Interpretation Comments TRANSFERRIN (test code = 4936) 281 MG/DL IRON BINDING CAPACITY AND IRON AND % [id number] 00:00:00 Test Item Value Reference Range Interpretation Comments IRON, SERUM (test code = 2222) 28 UG/DL UNSATURATED IBC (test code = 88915) 315 UG/DL CALC TOTAL IBC (test code = 7) 343 UG/DL CALC % IRON SAT (test code = 2078) 8 % PROTIME AND [id number] 00:00:00 Test Item Value Reference Range Interpretation Comments PROTHROMBIN TIME (PT) (test code 14.8 SECONDS = 1402) INR (test code = 99991) 1.1 PTT (test code = 1403) 35.8 SECONDS RHEUMATOID FACTOR, [id number] 00:00:00 Test Item Value Reference Range Interpretation Comments RHEUMATOID FACTOR, QUANT (test code <10 IU/ML = 3502) RHEUMATOID FACTOR, [id number] 00:00:00 Test Item Value Reference Range Interpretation Comments RHEUMATOID FACTOR, QUANT (test code <10 IU/ML = 3502) CCP [id number] 00:00:00 Test Item Value Reference Range Interpretation Comments CCP IgG (test code = 08717) <0.5 U/ML CCP [id number] 00:00:00 Test Item Value Reference Range Interpretation Comments CCP IgG (test code = 84741) <0.5 U/ML ASH (SM) [id number] 00:00:00 Test Item Value Reference Range Interpretation Comments ASH (Sm) ANTIBODY (test code = <0.2 AI 61502) DNA DS [id number] 00:00:00 Test Item Value Reference Range Interpretation Comments dsDNA ANTIBODY (test code = 4287) 1.0 IU/ML [id number] 00:00:00 Test Item Value Reference Range Interpretation Comments FERRITIN (test code = 2074) 42 NG/ML [id number] 00:00:00 Test Item Value Reference Range Interpretation Comments FERRITIN (test code = 2074) 42 NG/ML [id number] 00:00:00 Test Item Value Reference Range Interpretation Comments TRANSFERRIN (test code = 4936) 281 MG/DL [id number] 00:00:00 Test Item Value Reference Range Interpretation Comments TRANSFERRIN (test code = 4936) 281 MG/DL IRON BINDING CAPACITY AND IRON AND % [id number] 00:00:00 Test Item Value Reference Range Interpretation Comments IRON, SERUM (test code = 2221) 28 UG/DL UNSATURATED IBC (test code = ) 315 UG/DL CALC TOTAL IBC (test code = 2076) 343 UG/DL CALC % IRON SAT (test code = 2078) 8 % IRON BINDING CAPACITY AND IRON AND % [id number] 00:00:00 Test Item Value Reference Range Interpretation Comments IRON, SERUM (test code = 2221) 28 UG/DL UNSATURATED IBC (test code = 00108) 315 UG/DL CALC TOTAL IBC (test code = 2076) 343 UG/DL CALC % IRON SAT (test code = 2078) 8 % PROTIME AND [id number] 00:00:00 Test Item Value Reference Range Interpretation Comments PROTHROMBIN TIME (PT) (test code 14.8 SECONDS = 1402) INR (test code = 01872) 1.1 PTT (test code = 1403) 35.8 SECONDS PROTIME AND [id number] 00:00:00 Test Item Value Reference Range Interpretation Comments PROTHROMBIN TIME (PT) (test code 14.8 SECONDS = 1402) INR (test code = 76615) 1.1 PTT (test code = 1403) 35.8 SECONDS RHEUMATOID FACTOR, [id number] 00:00:00 Test Item Value Reference Range Interpretation Comments RHEUMATOID FACTOR, QUANT (test code <10 IU/ML = 3502) RHEUMATOID FACTOR, [id number] 00:00:00 Test Item Value Reference Range Interpretation Comments RHEUMATOID FACTOR, QUANT (test code <10 IU/ML = 3502) RHEUMATOID FACTOR, [id number] 00:00:00 Test Item Value Reference Range Interpretation Comments RHEUMATOID FACTOR, QUANT (test code <10 IU/ML = 3502) CCP [id number] 00:00:00 Test Item Value Reference Range Interpretation Comments CCP IgG (test code = 40910) <0.5 U/ML CCP [id number] 00:00:00 Test Item Value Reference Range Interpretation Comments CCP IgG (test code = 27898) <0.5 U/ML CCP [id number] 00:00:00 Test Item Value Reference Range Interpretation Comments CCP IgG (test code = 70328) <0.5 U/ML ASH (SM) [id number] 00:00:00 Test Item Value Reference Range Interpretation Comments ASH (Sm) ANTIBODY (test code = <0.2 AI 78145) ASH (SM) [id number] 00:00:00 Test Item Value Reference Range Interpretation Comments ASH (Sm) ANTIBODY (test code = <0.2 AI 01796) DNA DS [id number] 00:00:00 Test Item Value Reference Range Interpretation Comments dsDNA ANTIBODY (test code = 4287) 1.0 IU/ML DNA DS [id number] 00:00:00 Test Item Value Reference Range Interpretation Comments dsDNA ANTIBODY (test code = 4287) 1.0 IU/ML CULTURE, [id number] 00:00:00 Test Item Value Reference Range Interpretation Comments CULTURE, URINE (test SPECIMEN NUMBER: code = 83235) [id number] CULTURE, [id number] 00:00:00 Test Item Value Reference Range Interpretation Comments CULTURE, URINE (test SPECIMEN NUMBER: code = 78643) [id number] CULTURE, [id number] 00:00:00 Test Item Value Reference Range Interpretation Comments CULTURE, URINE (test SPECIMEN NUMBER: code = 02391) [id number] CULTURE, [id number] 00:00:00 Test Item Value Reference Range Interpretation Comments CULTURE, URINE (test SPECIMEN NUMBER: code = 69009) [id number] CULTURE, [id number] 00:00:00 Test Item Value Reference Range Interpretation Comments CULTURE, URINE (test SPECIMEN NUMBER: code = 70217) [id number] CULTURE, [id number] 00:00:00 Test Item Value Reference Range Interpretation Comments CULTURE, URINE (test SPECIMEN NUMBER: code = 07595) [id number] JAMEEL TITER AND PATTERN [REFLEX]2021-01-17 00:00:00 Test Item Value Reference Range Interpretation Comments PATTERN (test code = SPECKLED 69859) JAMEEL TITER (test code = 1:640 TITER 3550) PATTERN 2 (test code = NOT DETECTED 48296) JAMEEL TITER 2 (test code = NOT DETECTED TITER 04481) PATTERN 3 (test code = NOT DETECTED 98396) JAMEEL TITER 3 (test code = NOT DETECTED TITER 04516) METHOD (test code = 59981) (NOTE) JAMEEL TITER AND PATTERN [REFLEX]2021-01-17 00:00:00 Test Item Value Reference Range Interpretation Comments PATTERN (test code = SPECKLED 60872) JAMEEL TITER (test code = 1:640 TITER 3550) PATTERN 2 (test code = NOT DETECTED 60749) JAMEEL TITER 2 (test code = NOT DETECTED TITER 72017) PATTERN 3 (test code = NOT DETECTED 12629) JAMEEL TITER 3 (test code = NOT DETECTED TITER 76065) METHOD (test code = 45737) (NOTE) JAMEEL TITER AND PATTERN [REFLEX]2021-01-17 00:00:00 Test Item Value Reference Range Interpretation Comments PATTERN (test code = SPECKLED 90697) JAMEEL TITER (test code = 1:640 TITER 3550) PATTERN 2 (test code = NOT DETECTED 79776) JAMEEL TITER 2 (test code = NOT DETECTED TITER 13695) PATTERN 3 (test code = NOT DETECTED 20587) JAMEEL TITER 3 (test code = NOT DETECTED TITER 04936) METHOD (test code = 18096) (NOTE) JAMEEL TITER AND PATTERN [REFLEX]2021-01-17 00:00:00 Test Item Value Reference Range Interpretation Comments PATTERN (test code = SPECKLED 18415) JAMEEL TITER (test code = 1:640 TITER 3550) PATTERN 2 (test code = NOT DETECTED 88859) JAMEEL TITER 2 (test code = NOT DETECTED TITER 17214) PATTERN 3 (test code = NOT DETECTED 17844) JAMEEL TITER 3 (test code = NOT DETECTED TITER 49921) METHOD (test code = 38911) (NOTE) CBC W/AUTO [id number] 00:00:00 Test Item Value Reference Range Interpretation [...] NUCLEATED RBCS (test code = 0.00 K/UL 94416) CBC W/AUTO [id number] 00:00:00 Test Item Value Reference Range Interpretation [...] NUCLEATED RBCS (test code = 0.00 K/UL 81339) CBC W/AUTO [id number] 00:00:00 Test Item Value Reference Range Interpretation [...] NUCLEATED RBCS (test code = 0.00 K/UL 57274) COMPREHENSIVE METABOLIC [id number] 00:00:00 Test Item Value Reference Range Interpretation Comments GLUCOSE (test code = 2217) 139 MG/DL BUN (test code = 2208) 21 MG/DL CREATININE (test code = 2214) 0.83 MG/DL eGFR AMER. (test code 88 ML/MIN/1.73 = 32987) eGFR NON- AMER. (test 76 ML/MIN/1.73 code = 96333) CALC BUN/CREAT (test code = 25 RATIO [...] code = 2219) 23 U/L COMPREHENSIVE METABOLIC [id number] 00:00:00 Test Item Value Reference Range Interpretation Comments GLUCOSE (test code = 2217) 139 MG/DL BUN (test code = 2208) 21 MG/DL CREATININE (test code = 2214) 0.83 MG/DL eGFR AMER. (test code 88 ML/MIN/1.73 = 80558) eGFR NON- AMER. (test 76 ML/MIN/1.73 code = 42644) CALC BUN/CREAT (test code = 25 RATIO 2235) SODIUM (test code = 2231) 140 MEQ/L POTASSIUM (test code = 2228) 4.8 MEQ/L CHLORIDE (test code = 2215) 102 MEQ/L CARBON DIOXIDE (test code = 25 MEQ/L 2205) CALCIUM (test code = 2209) 9.2 MG/DL PROTEIN, TOTAL (test code = 7.2 G/DL 2228) ALBUMIN (test code = 220) 3.6 G/DL CALC GLOBULIN (test code = 3.6 G/DL 2239) CALC A/G RATIO (test code = 1.0 RATIO 2233) BILIRUBIN, TOTAL (test code = 0.6 MG/DL 2206) ALKALINE PHOSPHATASE (test 101 U/L code = 2204) AST (test code = 2218) 30 U/L ALT (test code = 2219) 23 U/L [id number] 00:00:00 Test Item Value Reference Range Interpretation Comments NT-proBNP (test code = 46821) 247 PG/ML [id number] 00:00:00 Test Item Value Reference Range Interpretation Comments NT-proBNP (test code = 32547) 247 PG/ML [id number] 00:00:00 Test Item Value Reference Range Interpretation Comments NT-proBNP (test code = 58119) 247 PG/ML JAMEEL (ANTI-NUCLEAR AB) WITH REFLEX [id number] 00:00:00 Test Item Value Reference Range Interpretation Comments ANTI-NUCLEAR ANTIBODIES (test code = POSITIVE 3506) JAMEEL (ANTI-NUCLEAR AB) WITH REFLEX [id number] 00:00:00 Test Item Value Reference Range Interpretation Comments ANTI-NUCLEAR ANTIBODIES (test code = POSITIVE 3506) C-REACTIVE [id number] 00:00:00 Test Item Value Reference Range Interpretation Comments C-REACTIVE PROTEIN (test code = 1.1 MG/DL 3513) C-REACTIVE [id number] 00:00:00 Test Item Value Reference Range Interpretation Comments C-REACTIVE PROTEIN (test code = 1.1 MG/DL 3513) SEDIMENTATION [id number] 00:00:00 Test Item Value Reference Range Interpretation Comments SEDIMENTATION RATE (test code = 88 MM/HOUR 1017) SEDIMENTATION [id number] 00:00:00 Test Item Value Reference Range Interpretation Comments SEDIMENTATION RATE (test code = 88 MM/HOUR 1017) [id number] 00:00:00 Test Item Value Reference Range Interpretation Comments D-DIMER (test code = 1405) 0.77 UG/MLFEU [id number] 00:00:00 Test Item Value Reference Range Interpretation Comments D-DIMER (test code = 1405) 0.77 UG/MLFEU CBC W/AUTO [id number] 00:00:00 Test Item Value Reference Range Interpretation [...] NUCLEATED RBCS (test code = 0.00 K/UL 18841) CBC W/AUTO [id number] 00:00:00 Test Item Value Reference Range Interpretation [...] NUCLEATED RBCS (test code = 0.00 K/UL 63975) COMPREHENSIVE METABOLIC [id number] 00:00:00 Test Item Value Reference Range Interpretation Comments GLUCOSE (test code = 2217) 139 MG/DL BUN (test code = 2208) 21 MG/DL CREATININE (test code = 2214) 0.83 MG/DL eGFR AMER. (test code 88 ML/MIN/1.73 = 50616) eGFR NON- AMER. (test 76 ML/MIN/1.73 code = 86240) CALC BUN/CREAT (test code = 25 RATIO [...] ALT (test code = 2219) 23 U/L [id number] 00:00:00 Test Item Value Reference Range Interpretation Comments NT-proBNP (test code = 21207) 247 PG/ML [id number] 00:00:00 Test Item Value Reference Range Interpretation Comments NT-proBNP (test code = 86269) 247 PG/ML JAMEEL (ANTI-NUCLEAR AB) WITH REFLEX [id number] 00:00:00 Test Item Value Reference Range Interpretation Comments ANTI-NUCLEAR ANTIBODIES (test code = POSITIVE 3506) C-REACTIVE [id number] 00:00:00 Test Item Value Reference Range Interpretation Comments C-REACTIVE PROTEIN (test code = 1.1 MG/DL 3513) SEDIMENTATION [id number] 00:00:00 Test Item Value Reference Range Interpretation Comments SEDIMENTATION RATE (test code = 88 MM/HOUR 1017) [id number] 00:00:00 Test Item Value Reference Range Interpretation Comments D-DIMER (test code = 1405) 0.77 UG/MLFEU CBC W/AUTO [id number] 00:00:00 Test Item Value Reference Range Interpretation [...] NUCLEATED RBCS (test code = 0.00 K/UL 97948) CBC W/AUTO [id number] 00:00:00 Test Item Value Reference Range Interpretation [...] NUCLEATED RBCS (test code = 0.00 K/UL 53534) COMPREHENSIVE METABOLIC [id number] 00:00:00 Test Item Value Reference Range Interpretation Comments GLUCOSE (test code = 2217) 139 MG/DL BUN (test code = 2208) 21 MG/DL CREATININE (test code = 2214) 0.83 MG/DL eGFR AMER. (test code 88 ML/MIN/1.73 = 91098) eGFR NON- AMER. (test 76 ML/MIN/1.73 code = 44322) CALC BUN/CREAT (test code = 25 RATIO [...] BILIRUBIN, TOTAL (test code = 0.6 MG/DL 220) ALKALINE PHOSPHATASE (test 101 U/L code = 2204) AST (test code = 2218) 30 U/L ALT (test code = 2219) 23 U/L [id number] 00:00:00 Test Item Value Reference Range Interpretation Comments NT-proBNP (test code = 75361) 247 PG/ML [id number] 00:00:00 Test Item Value Reference Range Interpretation Comments NT-proBNP (test code = 99185) 247 PG/ML JAMEEL (ANTI-NUCLEAR AB) WITH REFLEX [id number] 00:00:00 Test Item Value Reference Range Interpretation Comments ANTI-NUCLEAR ANTIBODIES (test code = POSITIVE 3506) C-REACTIVE [id number] 00:00:00 Test Item Value Reference Range Interpretation Comments C-REACTIVE PROTEIN (test code = 1.1 MG/DL 3513) SEDIMENTATION [id number] 00:00:00 Test Item Value Reference Range Interpretation Comments SEDIMENTATION RATE (test code = 88 MM/HOUR 1017) [id number] 00:00:00 Test Item Value Reference Range Interpretation Comments D-DIMER (test code = 1405) 0.77 UG/MLFEU CBC W/AUTO [id number] 00:00:00 Test Item Value Reference Range Interpretation [...] NUCLEATED RBCS (test code = 0.00 K/UL 35748) CBC W/AUTO [id number] 00:00:00 Test Item Value Reference Range Interpretation [...] NUCLEATED RBCS (test code = 0.00 K/UL 12228) CBC W/AUTO [id number] 00:00:00 Test Item Value Reference Range Interpretation [...] NUCLEATED RBCS (test code = 0.00 K/UL 37042) COMPREHENSIVE METABOLIC [id number] 00:00:00 Test Item Value Reference Range Interpretation Comments GLUCOSE (test code = 2217) 139 MG/DL BUN (test code = 2208) 21 MG/DL CREATININE (test code = 2214) 0.83 MG/DL eGFR AMER. (test code 88 ML/MIN/1.73 = 24324) eGFR NON- AMER. (test 76 ML/MIN/1.73 code = 12149) CALC BUN/CREAT (test code = 25 RATIO [...] RATIO 4) BILIRUBIN, TOTAL (test code = 0.6 MG/DL 2206) ALKALINE PHOSPHATASE (test 101 U/L code = 2204) AST (test code = 2218) 30 U/L ALT (test code = 2219) 23 U/L COMPREHENSIVE METABOLIC [id number] 00:00:00 Test Item Value Reference Range Interpretation Comments GLUCOSE (test code = 2217) 139 MG/DL BUN (test code = 2208) 21 MG/DL CREATININE (test code = 2214) 0.83 MG/DL eGFR AMER. (test code 88 ML/MIN/1.73 = 96158) eGFR NON- AMER. (test 76 ML/MIN/1.73 code = 81617) CALC BUN/CREAT (test code = 25 RATIO 2235) SODIUM (test code = 2231) 140 MEQ/L POTASSIUM (test code = 2228) 4.8 MEQ/L CHLORIDE (test code = 2215) 102 MEQ/L CARBON DIOXIDE (test code = 25 MEQ/L 2205) CALCIUM (test code = 2209) 9.2 MG/DL [...] ALT (test code = 2219) 23 U/L [id number] 00:00:00 Test Item Value Reference Range Interpretation Comments NT-proBNP (test code = 80479) 247 PG/ML [id number] 00:00:00 Test Item Value Reference Range Interpretation Comments NT-proBNP (test code = 27321) 247 PG/ML [id number] 00:00:00 Test Item Value Reference Range Interpretation Comments NT-proBNP (test code = 50685) 247 PG/ML JAMEEL (ANTI-NUCLEAR AB) WITH REFLEX [id number] 00:00:00 Test Item Value Reference Range Interpretation Comments ANTI-NUCLEAR ANTIBODIES (test code = POSITIVE 3506) JAMEEL (ANTI-NUCLEAR AB) WITH REFLEX [id number] 00:00:00 Test Item Value Reference Range Interpretation Comments ANTI-NUCLEAR ANTIBODIES (test code = POSITIVE 3506) C-REACTIVE [id number] 00:00:00 Test Item Value Reference Range Interpretation Comments C-REACTIVE PROTEIN (test code = 1.1 MG/DL 3513) C-REACTIVE [id number] 00:00:00 Test Item Value Reference Range Interpretation Comments C-REACTIVE PROTEIN (test code = 1.1 MG/DL 3513) SEDIMENTATION [id number] 00:00:00 Test Item Value Reference Range Interpretation Comments SEDIMENTATION RATE (test code = 88 MM/HOUR 1017) SEDIMENTATION [id number] 00:00:00 Test Item Value Reference Range Interpretation Comments SEDIMENTATION RATE (test code = 88 MM/HOUR 1017) [id number] 00:00:00 Test Item Value Reference Range Interpretation Comments D-DIMER (test code = 1405) 0.77 UG/MLFEU [id number] 00:00:00 Test Item Value Reference Range Interpretation Comments D-DIMER (test code = 1405) 0.77 UG/MLFEU HEMOGLOBIN [id number] 00:00:00 Test Item Value Reference Range Interpretation Comments HEMOGLOBIN A1c (test code = 09884) 7.5 % HEMOGLOBIN [id number] 00:00:00 Test Item Value Reference Range Interpretation Comments HEMOGLOBIN A1c (test code = 42508) 7.5 % HEMOGLOBIN [id number] 00:00:00 Test Item Value Reference Range Interpretation Comments HEMOGLOBIN A1c (test code = 71299) 7.5 % HEMOGLOBIN [id number] 00:00:00 Test Item Value Reference Range Interpretation Comments HEMOGLOBIN A1c (test code = 53209) 7.5 % HEMOGLOBIN [id number] 00:00:00 Test Item Value Reference Range Interpretation Comments HEMOGLOBIN A1c (test code = 67842) 7.5 % HEMOGLOBIN [id number] 00:00:00 Test Item Value Reference Range Interpretation Comments HEMOGLOBIN A1c (test code = 08316) 7.5 % HEMOGLOBIN [id number] 00:00:00 Test Item Value Reference Range Interpretation Comments HEMOGLOBIN A1c (test code = 89085) 7.5 % HEMOGLOBIN [id number] 00:00:00 Test Item Value Reference Range Interpretation Comments HEMOGLOBIN A1c (test code = 47372) 7.5 % HEMOGLOBIN [id number] 00:00:00 Test Item Value Reference Range Interpretation Comments HEMOGLOBIN A1c (test code = 13586) 7.5 % HEMOGLOBIN [id number] 00:00:00 Test Item Value Reference Range Interpretation Comments HEMOGLOBIN A1c (test code = 83066) 7.5 % CULTURE, [id number] 00:00:00 Test Item Value Reference Range Interpretation Comments CULTURE, URINE (test SPECIMEN NUMBER: code = 08346) [id number] CULTURE, [id number] 00:00:00 Test Item Value Reference Range Interpretation Comments CULTURE, URINE (test SPECIMEN NUMBER: code = 00417) [id number] CULTURE, [id number] 00:00:00 Test Item Value Reference Range Interpretation Comments CULTURE, URINE (test SPECIMEN NUMBER: code = 23518) [id number] CULTURE, [id number] 00:00:00 Test Item Value Reference Range Interpretation Comments CULTURE, URINE (test SPECIMEN NUMBER: code = 42900) [id number] CULTURE, [id number] 00:00:00 Test Item Value Reference Range Interpretation Comments CULTURE, URINE (test SPECIMEN NUMBER: code = 32539) [id number] CULTURE, [id number] 00:00:00 Test Item Value Reference Range Interpretation Comments CULTURE, URINE (test SPECIMEN NUMBER: code = 32880) [id number] HEMOGLOBIN [id number] 00:00:00 Test Item Value Reference Range Interpretation Comments HEMOGLOBIN A1c (test code = 19056) 8.6 % HEMOGLOBIN [id number] 00:00:00 Test Item Value Reference Range Interpretation Comments HEMOGLOBIN A1c (test code = 78529) 8.6 % HEMOGLOBIN [id number] 00:00:00 Test Item Value Reference Range Interpretation Comments HEMOGLOBIN A1c (test code = 29406) 8.6 % LIPID [id number] 00:00:00 Test Item Value Reference Range Interpretation Comments CHOLESTEROL (test code = 2210) 104 MG/DL TRIGLYCERIDES (test code = 2232) 164 MG/DL HDL CHOLESTEROL (test code = 2220) 39 MG/DL CALC LDL CHOL (test code = 2237) 41 MG/DL RISK RATIO LDL/HDL (test code = 1.05 RATIO 2238) LIPID [id number] 00:00:00 Test Item Value Reference Range Interpretation Comments CHOLESTEROL (test code = 2210) 104 MG/DL TRIGLYCERIDES (test code = 2232) 164 MG/DL HDL CHOLESTEROL (test code = 2220) 39 MG/DL CALC LDL CHOL (test code = 2237) 41 MG/DL RISK RATIO LDL/HDL (test code = 1.05 RATIO 2238) COMPREHENSIVE METABOLIC [id number] 00:00:00 Test Item Value Reference Range Interpretation Comments GLUCOSE (test code = 2217) 330 MG/DL BUN (test code = 2208) 11 MG/DL CREATININE (test code = 2214) 0.84 MG/DL eGFR AMER. (test code 87 ML/MIN/1.73 = 08473) eGFR NON- AMER. (test 75 ML/MIN/1.73 code = 06894) CALC BUN/CREAT (test code = 13 RATIO 2235) SODIUM (test code = 2231) 136 MEQ/L POTASSIUM (test code = 2228) 4.5 MEQ/L CHLORIDE (test code = 2215) 97 MEQ/L CARBON DIOXIDE (test code = 27 MEQ/L 220) CALCIUM (test code = 2209) 9.1 MG/DL [...] code = 2219) 29 U/L COMPREHENSIVE METABOLIC [id number] 00:00:00 Test Item Value Reference Range Interpretation Comments GLUCOSE (test code = 2217) 330 MG/DL BUN (test code = 2208) 11 MG/DL CREATININE (test code = 2214) 0.84 MG/DL eGFR AMER. (test code 87 ML/MIN/1.73 = 23643) eGFR NON- AMER. (test 75 ML/MIN/1.73 code = 72047) CALC BUN/CREAT (test code = 13 RATIO [...] = 2219) 29 U/L MICROALBUMIN/CREATININE, RANDOM AND [id number] 00:00:00 Test Item Value Reference Range Interpretation Comments CREATININE, URINE, CONC. (test 131.3 MG/DL code = 2072) ALBUMIN, URINE, RANDOM (test code 0.4 MG/DL = 32299) CALC ALBUMIN/CREAT, RND (test 3 MG/G code = 79063) MICROALBUMIN/CREATININE, RANDOM AND [id number] 00:00:00 Test Item Value Reference Range Interpretation Comments CREATININE, URINE, CONC. (test 131.3 MG/DL code = 2072) ALBUMIN, URINE, RANDOM (test code 0.4 MG/DL = 15711) CALC ALBUMIN/CREAT, RND (test 3 MG/G code = 91217) HEMOGLOBIN [id number] 00:00:00 Test Item Value Reference Range Interpretation Comments HEMOGLOBIN A1c (test code = 88416) 8.6 % HEMOGLOBIN [id number] 00:00:00 Test Item Value Reference Range Interpretation Comments HEMOGLOBIN A1c (test code = 26845) 8.6 % LIPID [id number] 00:00:00 Test Item Value Reference Range Interpretation Comments CHOLESTEROL (test code = 2210) 104 MG/DL TRIGLYCERIDES (test code = 2232) 164 MG/DL HDL CHOLESTEROL (test code = 2220) 39 MG/DL CALC LDL CHOL (test code = 2237) 41 MG/DL RISK RATIO LDL/HDL (test code = 1.05 RATIO 2238) COMPREHENSIVE METABOLIC [id number] 00:00:00 Test Item Value Reference Range Interpretation Comments GLUCOSE (test code = 2217) 330 MG/DL BUN (test code = 2208) 11 MG/DL CREATININE (test code = 2214) 0.84 MG/DL eGFR AMER. (test code 87 ML/MIN/1.73 = 53168) eGFR NON- AMER. (test 75 ML/MIN/1.73 code = 10468) CALC BUN/CREAT (test code = 13 RATIO [...] = 2219) 29 U/L MICROALBUMIN/CREATININE, RANDOM AND [id number] 00:00:00 Test Item Value Reference Range Interpretation Comments CREATININE, URINE, CONC. (test 131.3 MG/DL code = 2072) ALBUMIN, URINE, RANDOM (test code 0.4 MG/DL = 11173) CALC ALBUMIN/CREAT, RND (test 3 MG/G code = 81382) HEMOGLOBIN [id number] 00:00:00 Test Item Value Reference Range Interpretation Comments HEMOGLOBIN A1c (test code = 24173) 8.6 % HEMOGLOBIN [id number] 00:00:00 Test Item Value Reference Range Interpretation Comments HEMOGLOBIN A1c (test code = 24614) 8.6 % LIPID [id number] 00:00:00 Test Item Value Reference Range Interpretation Comments CHOLESTEROL (test code = 2210) 104 MG/DL TRIGLYCERIDES (test code = 2232) 164 MG/DL HDL CHOLESTEROL (test code = 2220) 39 MG/DL CALC LDL CHOL (test code = 2237) 41 MG/DL RISK RATIO LDL/HDL (test code = 1.05 RATIO 2238) COMPREHENSIVE METABOLIC [id number] 00:00:00 Test Item Value Reference Range Interpretation Comments GLUCOSE (test code = 2217) 330 MG/DL BUN (test code = 2208) 11 MG/DL CREATININE (test code = 2214) 0.84 MG/DL eGFR AMER. (test code 87 ML/MIN/1.73 = 69858) eGFR NON- AMER. (test 75 ML/MIN/1.73 code = 37709) CALC BUN/CREAT (test code = 13 RATIO [...] = 2219) 29 U/L MICROALBUMIN/CREATININE, RANDOM AND [id number] 00:00:00 Test Item Value Reference Range Interpretation Comments CREATININE, URINE, CONC. (test 131.3 MG/DL code = 2072) ALBUMIN, URINE, RANDOM (test code 0.4 MG/DL = 92903) CALC ALBUMIN/CREAT, RND (test 3 MG/G code = 99959) HEMOGLOBIN [id number] 00:00:00 Test Item Value Reference Range Interpretation Comments HEMOGLOBIN A1c (test code = 04266) 8.6 % HEMOGLOBIN [id number] 00:00:00 Test Item Value Reference Range Interpretation Comments HEMOGLOBIN A1c (test code = 04462) 8.6 % HEMOGLOBIN [id number] 00:00:00 Test Item Value Reference Range Interpretation Comments HEMOGLOBIN A1c (test code = 09144) 8.6 % LIPID [id number] 00:00:00 Test Item Value Reference Range Interpretation Comments CHOLESTEROL (test code = 2210) 104 MG/DL TRIGLYCERIDES (test code = 2232) 164 MG/DL HDL CHOLESTEROL (test code = 2220) 39 MG/DL CALC LDL CHOL (test code = 2237) 41 MG/DL RISK RATIO LDL/HDL (test code = 1.05 RATIO 2238) LIPID [id number] 00:00:00 Test Item Value Reference Range Interpretation Comments CHOLESTEROL (test code = 2210) 104 MG/DL TRIGLYCERIDES (test code = 2232) 164 MG/DL HDL CHOLESTEROL (test code = 2220) 39 MG/DL CALC LDL CHOL (test code = 2237) 41 MG/DL RISK RATIO LDL/HDL (test code = 1.05 RATIO 2238) COMPREHENSIVE METABOLIC [id number] 00:00:00 Test Item Value Reference Range Interpretation Comments GLUCOSE (test code = 2217) 330 MG/DL BUN (test code = 2208) 11 MG/DL CREATININE (test code = 2214) 0.84 MG/DL eGFR AMER. (test code 87 ML/MIN/1.73 = 72436) eGFR NON- AMER. (test 75 ML/MIN/1.73 code = 39471) CALC BUN/CREAT (test code = 13 RATIO [...] code = 2219) 29 U/L COMPREHENSIVE METABOLIC [id number] 00:00:00 Test Item Value Reference Range Interpretation Comments GLUCOSE (test code = 2217) 330 MG/DL BUN (test code = 2208) 11 MG/DL CREATININE (test code = 2214) 0.84 MG/DL eGFR AMER. (test code 87 ML/MIN/1.73 = 10822) eGFR NON- AMER. (test 75 ML/MIN/1.73 code = 05185) CALC BUN/CREAT (test code = 13 RATIO [...] BILIRUBIN, TOTAL (test code = 0.4 MG/DL 2207) ALKALINE PHOSPHATASE (test 106 U/L code = 2204) AST (test code = 2218) 44 U/L ALT (test code = 2219) 29 U/L MICROALBUMIN/CREATININE, RANDOM AND [id number] 00:00:00 Test Item Value Reference Range Interpretation Comments CREATININE, URINE, CONC. (test 131.3 MG/DL code = 2072) ALBUMIN, URINE, RANDOM (test code 0.4 MG/DL = 47531) CALC ALBUMIN/CREAT, RND (test 3 MG/G code = 21851) MICROALBUMIN/CREATININE, RANDOM AND [id number] 00:00:00 Test Item Value Reference Range Interpretation Comments CREATININE, URINE, CONC. (test 131.3 MG/DL code = 2072) ALBUMIN, URINE, RANDOM (test code 0.4 MG/DL = 10045) CALC ALBUMIN/CREAT, RND (test 3 MG/G code = 90451)
[2022-02-07] MEDS ORDERED: HYDROCODONE/APAP 10/325 TAB ONE (20:33)
[2022-02-07] MEDS ORDERED: dexAMETHasone 10 MG/ML VIAL ONE (20:33)
[2022-02-07 20:47] LABS: Urine Blood Trace-intact (Negative); Urine Glucose Negative (Negative); Urine Protein Negative (Negative); Urine pH 5.5 (5.0-7.0)
[2022-02-07 21:27] LABS: Urine Mucus Slight /HPF (None Seen); Urine RBC <5 /HPF (None Seen)
--- NOTE | 2022-02-07 21:34 | ER ---
Nurse's Notes [facility] Name: Sita Delgado Age: 62 yrs Sex: Female : 1960 Arrival Date: 02/07/2022 Time: 19:59 Bed 19 Private MD: Diagnosis: Low back pain Presentation: 02/07 20:12 Chief complaint: Patient states: left side flank pain that started yesterday that has kr3 progressed to sharp shooting pain currently. Coronavirus screen: Vaccine status: Patient reports receiving the 2nd dose of the covid vaccine. Client denies travel out of the [place] in the last 14 days. Ebola Screen: Patient denies travel to an Ebola-affected area in the 21 days before illness onset. Initial Sepsis Screen: Does the patient meet any 2 criteria? No. Patient's initial sepsis screen is negative. Does the patient have a suspected source of infection? No. Patient's initial sepsis screen is negative. Risk Assessment: Do you want to hurt yourself or someone else? Patient reports no desire to harm self or others. Onset of symptoms was January 06, 2022. 20:12 Method Of Arrival: Ambulatory kr3 20:12 Acuity: KATARINA 3 kr3 Triage Assessment: 20:17 General: Appears distressed, uncomfortable, Behavior is calm, cooperative, appropriate kr3 for age. Pain: Complains of pain in left low back and left mid back. Musculoskeletal: Range of motion: intact in all extremities. Historical: - Allergies: 20:16 Darvocet-N 100; kr3 20:16 Nubain; kr3 20:16 PENICILLINS; kr3 20:16 Ketorolac; kr3 - PMHx: 20:16 chronic back pain; cirrhosis of liver; diabetes mellitus; Hypertensive disorder; kr3 Thyroid problem; - PSHx: 20:16 Appendectomy; vic knee reconstructive sx; Cholecystectomy; hysterectomy; carpal tunnel kr3 repair; - Immunization history:: Adult Immunizations not up to date. - Social history:: Smoking status: Patient denies any tobacco usage or history of. Screenin:27 Abuse screen: Denies threats or abuse. Denies injuries from another. Nutritional tp1 screening: No deficits noted. Tuberculosis screening: No symptoms or risk factors identified. Fall Risk None identified. Assessment: 20:26 General: Appears in no apparent distress. uncomfortable, Behavior is calm, cooperative. tp1 Pain: Complains of pain in left low back Pain radiates to right low back Pain currently is 8 out of 10 on a pain scale. Quality of pain is described as sharp, Is continuous. Neuro: Level of Consciousness is awake, alert, obeys commands, Oriented to person, place, time, situation. Cardiovascular: Patient's skin is warm and dry. Respiratory: Airway is patent Respiratory effort is even, unlabored. GI: Abdomen is obese, Patient currently denies diarrhea, nausea, vomiting. : Denies burning with urination, urinary frequency. EENT: No signs and/or symptoms were reported regarding the EENT system. Derm: Skin is pink, warm \T\ dry. Musculoskeletal: Circulation, motion, and sensation intact. 21:31 Reassessment: Patient appears in no apparent distress at this time. No changes from tp1 previously documented assessment. Patient and/or family updated on plan of care and expected duration. Pain level reassessed. Patient is alert, oriented x 3, equal unlabored respirations, skin warm/dry/pink. States pain level has not changed. Provider notified. Vital Signs: 20:12 BP 129 / 91; Pulse 94; Resp 18; Temp 99.2; Pulse Ox 99% on R/A; Weight 91.17 kg; Height kr3 5 ft. 2 in. (157.48 cm); Pain 10/10; 21:41 BP 110 / 53; Pulse 82; Resp 16; Pulse Ox 99% on R/A; tp1 20:12 Body Mass Index 36.76 (91.17 kg, 157.48 cm) kr3 ED Course: 19:59 Patient arrived in ED. mr 20:14 [facility] Bella [facility] kb 20:14 Johan Tsai MD is Attending Physician. kb 20:15 Triage completed. kr3 20:18 Patient placed in an exam room, on a stretcher. kr3 20:25 Quiana Candelaria, ANGELIC is Primary Nurse. tp1 20:26 Patient has correct armband on for positive identification. Bed in low position. Call tp1 light in reach. Adult w/ patient. 20:52 Urine Microscopic Only Sent. tp1 21:10 Urine Microscopic Only Sent. tp1 21:40 No provider procedures requiring assistance completed. Patient did not have IV access tp1 during this emergency room visit. Administered Medications: 20:35 Drug: [place] (HYDROcodone-acetaminophen) 10 mg-325 mg 1 tabs Route: PO; tp1 21:40 Follow up: Response: Pain is unchanged, physician notified tp1 20:36 Drug: Decadron (dexamethasone) 10 mg Route: IM; Site: right deltoid; tp1 21:40 Follow up: Response: Pain is unchanged, physician notified tp1 21:40 Drug: Flexeril (cyclobenzaprine) 10 mg Route: PO; tp1 21:40 Follow up: Response: Medication administered at discharge. tp1 Medication: 21:40 VIS not applicable for this client. tp1 Outcome: 21:33 Discharge ordered by . kb 21:40 Discharged to home ambulatory. tp1 21:40 Condition: good 21:40 Discharge instructions given to patient, Instructed on discharge instructions, follow up and referral plans. medication usage, Demonstrated understanding of instructions, follow-up care, medications, Prescriptions given X 2. 21:41 Patient left the ED. tp1 Signatures: Marybel Bella, [employer]IVE [employer]-C [employer]IVE [employer]-Karely Freitas Quiana Candelaria, RN RN tp1 Riana Lyons RN RN kr3
--- NOTE | 2022-02-07 21:34 | EDPHYS ---
Physician Documentation [facility] Name: Sita Delgado Age: 62 yrs Sex: Female : 1960 Arrival Date: 02/07/2022 Time: 19:59 Bed 19 Private MD: ED Physician Johan Tsai HPI: 02/07 21:37 This 62 yrs old Female presents to ER via Ambulatory with complaints of Back kb Pain. 21:37 The patient presents with pain that is acute. The symptoms are located in the low back. kb Onset: The symptoms/episode began/occurred yesterday. The pain does not radiate. Associated signs and symptoms: The patient has no apparent associated signs or symptoms. The problem was sustained from a chronic condition, when lifting. Modifying factors: The patient symptoms are alleviated by nothing, the patient symptoms are aggravated by any movement. Severity of symptoms: At their worst the symptoms were moderate, in the emergency department the symptoms are unchanged. The patient has experienced similar episodes in the past. The patient has not recently seen a physician. Pt reports left low back pain after lifting something heavy yesterday. Has had this exact same pain multiple times in the past. Plans to see pain management on the . . Historical: - Allergies: 20:16 Darvocet-N 100; kr3 20:16 Nubain; kr3 20:16 PENICILLINS; kr3 20:16 Ketorolac; kr3 - PMHx: 20:16 chronic back pain; cirrhosis of liver; diabetes mellitus; Hypertensive disorder; kr3 Thyroid problem; - PSHx: 20:16 Appendectomy; vic knee reconstructive sx; Cholecystectomy; hysterectomy; carpal tunnel kr3 repair; - Immunization history:: Adult Immunizations not up to date. - Social history:: Smoking status: Patient denies any tobacco usage or history of. ROS: 21:36 Constitutional: Negative for fever, chills, and weight loss. kb 21:36 Back: Positive for pain at rest, pain with movement, of the left low back. 21:36 All other systems are negative. Exam: 21:36 Constitutional: This is a well developed, well nourished patient who is awake, alert, kb and in no acute distress. Head/Face: Normocephalic, atraumatic. ENT: Moist Mucous membranes Cardiovascular: Regular rate and rhythm with a normal S1 and S2. No gallops, murmurs, or rubs. No pulse deficits. Respiratory: Respirations even and unlabored. No increased work of breathing. Talking in full sentences Abdomen/GI: Soft, non-tender. No distention Skin: Warm, dry with normal turgor. Normal color. MS/ Extremity: Pulses equal, no cyanosis. Neurovascular intact. Full, normal range of motion. Neuro: Awake and alert, GCS 15, oriented to person, place, time, and situation. Moves all extremities. Normal gait. Psych: Awake, alert, with orientation to person, place and time. Behavior, mood, and affect are within normal limits. 21:36 Back: pain, that is moderate, of the left low back, ROM is painful. Vital Signs: 20:12 BP 129 / 91; Pulse 94; Resp 18; Temp 99.2; Pulse Ox 99% on R/A; Weight 91.17 kg; Height kr3 5 ft. 2 in. (157.48 cm); Pain 10/10; 21:41 BP 110 / 53; Pulse 82; Resp 16; Pulse Ox 99% on R/A; tp1 20:12 Body Mass Index 36.76 (91.17 kg, 157.48 cm) kr3 MDM: 20:18 Patient medically screened. kb 21:36 Data reviewed: vital signs, nurses notes. Data interpreted: Pulse oximetry: on room air kb is 99 %. Interpretation: normal. 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 02/07 20:47 Order name: Urine Dipstick-Ancillary; Complete Time: 20:48 EDMS 02/07 20:50 Order name: Urine Microscopic Only; Complete Time: 21:30 tp1 02/07 20:30 Order name: Urine Dipstick-Ancillary (obtain specimen); Complete Time: 20:49 kb Administered Medications: 20:35 Drug: [place] (HYDROcodone-acetaminophen) 10 mg-325 mg 1 tabs Route: PO; tp1 21:40 Follow up: Response: Pain is unchanged, physician notified tp1 20:36 Drug: Decadron (dexamethasone) 10 mg Route: IM; Site: right deltoid; tp1 21:40 Follow up: Response: Pain is unchanged, physician notified tp1 21:40 Drug: Flexeril (cyclobenzaprine) 10 mg Route: PO; tp1 21:40 Follow up: Response: Medication administered at discharge. tp1 Disposition: 22:11 Co-signature as Attending Physician, Johan Tsai MD I agree with the assessment and kdr plan of care. Disposition Summary: 02/07/22 21:33 Discharge Ordered Location: Home kb Condition: Stable kb Diagnosis - Low back pain kb Followup: kb - With: Emergency Department - When: As needed - Reason: Worsening of condition Followup: kb - With: Private Physician - When: 2 - 3 days - Reason: Recheck today's complaints, Continuance of care, Re-evaluation by your physician Discharge Instructions: - Discharge Summary Sheet kb - Musculoskeletal Pain kb - Chronic Back Pain, Ivro-dr-Ecso kb Forms: - Medication Reconciliation Form kb - Thank You Letter kb - Antibiotic Education kb - Prescription Opioid Use kb Prescriptions: - Cyclobenzaprine 10 mg Oral Tablet - take 1 tablet by ORAL route every 8 hours As needed; 21 tablet; Refills: 0, kb Product Selection Permitted - Diclofenac Sodium 75 mg Oral tablet,delayed release (DR/EC) - take 1 tablet by ORAL route 2 times per day As needed; 30 tablet; Refills: 0, kb Product Selection Permitted Signatures: Dispatcher [employer] Marybel Carty, Johan Villalta MD MD [facility] Quiana Candelaria RN RN tp1 Riana Lyons RN RN kr3
[2022-02-07] MEDS ORDERED: CYCLOBENZAPRINE 10 MG TAB ONE (21:37)
[2022-02-07 21:52] VITALS: TEMP 99.2; O2SAT 99
[2022-02-07 21:54] VITALS: BP 110/53
== END 2022-02-07 21:41 | disposition home or self-care (01) ==
LOC: ER 19:56
DX: M54.50 Low back pain, unspecified (principal); I10 Essential (primary) hypertension; Z88.0 Allergy status to penicillin; Z88.5 Allergy status to narcotic agent
CPT/HCPCS: 96372; 99283; J1100; 81003; 81015

== ENCOUNTER 2022-03-02 14:58 | Emergency (ER) | payer OTHER ==
--- OUTSIDE RECORDS SUMMARY | 2022-03-02 15:11 | XMS REPORT | Continuity of Care Document ---
:1960 Author Organization [facility] t Address [address] [place] [address] Care Team Providers Name Role Phone PCP, PATIENT DOES NOT HAVE A Primary Care Physician Unavaila JULIA Spaulding Attending Clinician Unavailable CHAD MARVIN Attending Clinician Unavailable CHAD MARVIN Attending Clinician Unavailable Chad Marvin DO Attending Clinician EREN OCHOA Attending Clinician Unavailable EREN OCHOA Attending Clinician Unavailable YOVANA ROD Attending Clinician Unavailable Yovana Rod DO Attending Clinician JULIA BUTTERFIELD Attending Clinician Unavailable CHAD MARVIN Admitting Clinician Unavailable YOVANA ROD Admitting Clinician Unavailable Payers Payer Name Policy Type Policy Number Effective Date Expiration Date S karen [facility] [employer] [id number] 2021 00:00:00 WELLMED/[facility] [id number] 2021 MEDICARE GOLD PPO 00:00:00 CSNP Problems Condition Condition Condition Status Onset Resolution Last Treating Co mments Source Name Details Category Date Date Treatment Clinician Date No known No known Disease Unive rs active active ity of problems problems [facility] Allergies, Adverse Reactions, Alerts Allergy Allergy Status Severity Reaction(s) Onset Inactive Treating Comm ents Source Name Type Date Date Clinician KETOROLA DRUG Active Hives Univers C INGREDI 12-16 ity of 00:00: [place] 00 Medical Branch [...] Medical Branch n Propensi Active ty to 623 adverse 00:00: reaction 00 to drug Bactrim Propensi Active - Oral ty to 4- adverse 00:00: reaction 00 to drug NO KNOWN Drug Active [facility] ALLERGIE Class ity of [facility] Social History Social Habit Start Date Stop Date Quantity Comments Source ASSERTION [facility] Exposure to 2022-01-29 2022-02-08 Not sure [facility] SARS-CoV-2 (event) 00:00:00 07:25:00 Medica Branch Sex Ass[birth year] [facility] 00:00:00 00:00:00 Medical Branch Smoking Status Start Date Stop Date Source Tobacco smoking consumption [facility] Branch Medications Ordered Filled Start Stop Current Ordering Indication Dosage Frequency Signature Comments Components Source Medication Medication Date Date Medication? Clinician (SIG) Name Name HYDROXYZINE 2021-04 No HCL 50 MG 1-15 TABS 00:00: 00 HYDROcodone 2021-04- No 1{tbl} 1 tablet, Univers -acetaminop 04-10 Oral, ity of hen (NORCO 12:45: 12:48 ONCE, 1 [place] as 5) 5-325 mg 00 :00 dose, On Medi [place] tablet 1 Sat Branch tablet 02/08/22 at 0745, GEORGE HYDROcodone 2021-04- Yes 4647 1{tbl} Take 1 U nivers -acetaminop 04-10-13 tablet by it y of hen 5-325 00:00: 05:59 mouth [place] mg tablet 00 :00 every 4 Medical (four) Branch hours as needed for Pain (scale 1-3) for up to 7 days. Indication s: acute pain METFORMIN 2021-04 No HYDROCHLORI 0-31 DE 1000 MG 00:00: TABS 00 MORPHINE 2021-1 No 30 SUL 30MG ER 0-24 Tablets 00:00: 00 LISINOPRIL 2021-1 No 5 MG TABS 0-11 00:00: 00 LISINOPRIL 2021-1 No 5 MG TABS 0-11 00:00: 00 UNITHROID 2021-0 No 75 MCG TABS 12-30 00:00: 00 UNITHROID 2021-0 No 75 MCG TABS 12-30 00:00: 00 HUMULIN 2021-0 No 70/30 12-27 KWIKPEN 00:00: (70-30) 100 00 UNIT/ML SUPN Dose No Unknown 12-27 00:00: 00 HYDROcodone 2021-2021- No 1{tbl} 1 tablet, Univers -acetaminop 12-17 Oral, ity of hen (NORCO) 05:52: 05:58 [place] 1 [place] 10-325 mg 00 :00 dose, On Medica l tablet 1 Tue Branch tablet 12/17/21 at 0100, GEORGE MORPHINE 2021-0 No 30 SULFATE ER 8-22 30 MG TBCR 00:00: 00 MORPHINE 2021-0 No 30 SULFATE ER 8-22 30 MG TBCR 00:00: 00 MORPHINE 2021-0 No 30 SULFATE ER 8-22 30 MG TBCR 00:00: 00 TRINTELLIX 2-0 No 20 MG TABS 8-18 00:00: 00 TRINTELLIX 2-0 No 20 MG TABS 8-18 00:00: 00 TRINTELLIX 2-0 No 20 20 MG TABS 8-18 00:00: 00 Dose 2-0 No Unknown 8-10 00:00: 00 &lt 2022-0 No 10 8-10 00:00: 00 Dose 2-0 No Unknown 8-10 00:00: 00 Dose 2-0 No Unknown 8-10 00:00: 00 Dose 2-0 No 5 Unknown 8-10 00:00: 00 Dose 2-0 No Unknown 8-10 00:00: 00 &lt 2022-0 No 10 8-10 00:00: 00 Dose 2-0 No Unknown 8-10 00:00: 00 Dose 2-0 No Unknown 8-10 00:00: 00 Dose 2022-0 [...] 2022-0 No 10 Unknown 7 00:00: 00 Dose 2022-0 No 4 Unknown 11-01 00:00: 00 Dose 2022-0 No Unknown 11-01 00:00: 00 Dose 2022-0 No 4 Unknown 11-01 00:00: 00 Dose 2022-0 No 10 Unknown 11-01 00:00: 00 Dose 2022-0 No Unknown 7 00:00: 00 Dose 2022-0 No Unknown 7 00:00: 00 &lt 2022-0 No 7- 00:00: 00 lisinopril 2022-0 No 1mg 5 [...] release TAKE 1 2021-0 No 1000 TABLET 7-21 TWICE 00:00: DAILY. [...] 1000 TABLET 7-21 TWICE 00:00: DAILY. 00 Dose 2022-0 No Unknown 7- 00:00: 00 Dose 2022-0 No Unknown 7- 00:00: 00 citalopram 2022-0 No 1mg 20 mg 7-21 tablet 00:00: 00 Dose 2022-0 No Unknown 7- 00:00: 00 Dose 2022-0 No Unknown 7- 00:00: 00 Dose 2022-0 No Unknown 7- 00:00: 00 metoclopram 2022-0 No 1mg ankit 10 mg 7-21 tablet 00:00: 00 Dose 2022-0 No Unknown 7- 00:00: 00 Dose 2022-0 No Unknown 7 00:00: 00 TAKE 1 2-0 No 1000 TABLET 7- TWICE 00:00: DAILY. 00 TAKE 1 2-0 No 500 TABLET BY 7- MOUTH EVERY [...] lisinopril 2-0 No 1mg 5 mg tablet 7- 00:00: 00 Myrbetriq 2022-0 No 1mg 25 mg 7-21 tablet,exte 00:00: nded 00 release citalopram 2022-0 No 1mg 20 mg 7-21 tablet 00:00: 00 atorvastati 2022-0 No 1mg n 10 mg 7-21 tablet 00:00: 00 metformin 2022-0 No 1mg 1,000 mg 7-21 tablet 00:00: 00 glimepiride 2-0 No 1mg 1 mg tablet 10-24 00:00: 00 metoclopram 2022-0 No 1mg ankit 10 mg 7-21 tablet 00:00: 00 ferrous 2022-0 No 1(65 mg sulfate 325 - iron) mg (65 mg 00:00: iron) 00 tablet omeprazole 2021-0 No 1mg 40 mg 7- capsule,del 00:00: ayed 00 release TAKE 1 2021-0 No 1000 TABLET 10-24 TWICE 00:00: DAILY. 00 TAKE 1 2021-0 No 500 TABLET BY 7- MOUTH EVERY 00:00: 8 HOURS FOR 00 10 DAYS &lt 2022-0 No 250 7 00:00: 00 &lt 2022-0 No 10 7- 00:00: 00 &lt 2022-0 No 25 7- 00:00: 00 &lt 2022-0 No 7- 00:00: 00 &lt 2022-0 No 7- 00:00: 00 TAKE 1 2021-0 No 1000 TABLET 10-24 TWICE 00:00: DAILY. 00 lisinopril 2-0 No 1mg 5 mg tablet 10-24 00:00: 00 Myrbetriq 2-0 No 1mg 25 mg 7- tablet,exte 00:00: nded 00 release citalopram 2-0 [...] tablet omeprazole 2-0 No 1mg 40 mg - capsule,del 00:00: ayed 00 release TAKE 1 2021-0 No 1000 TABLET 10-24 TWICE 00:00: DAILY. 00 TAKE 1 2021-0 No 500 TABLET BY 7- MOUTH EVERY 00:00: 8 HOURS FOR 00 10 DAYS &lt 2022-0 No 250 7- 00:00: 00 &lt 2022-0 No 10 7- 00:00: 00 &lt 2022-0 No 25 7 00:00: 00 &lt 2022-0 No 7- 00:00: 00 &lt 2022-0 No 7- 00:00: 00 TAKE 1 2021-0 No 1000 TABLET 10-24 TWICE 00:00: DAILY. 00 Dose 2022-0 No 5 Unknown 10-23 00:00: 00 Dose 2022-0 No 5 Unknown 10-23 00:00: 00 Dose 2022-0 No 5 Unknown 10-23 00:00: 00 Dose 2022-0 No 5 Unknown 10-23 00:00: 00 HYDROcodone 2021-0 2021- No 1{tbl} 1 tablet, Univers -acetaminop 10-19 Oral, ity of hen (NORCO) 06:30: 05:28 [place] 10[place]325 mg 00 :00 dose, On Medica l tablet 1 [facility] Branch tablet 10/19/21 at 0130, Routine No known 2021-0 No No known Unive rs medications 10-19 medication it y of 04:06: s [address] TAKE 1 2021-0 No 500 TABLET BY 7-13 MOUTH EVERY 00:00: 12 HOURS 00 FOR 10 DAYS &lt 2022-0 No 7- 00:00: 00 TAKE 1 2021-0 No TABLET [...] 7- 00:00: 00 TAKE 1 2021-0 No 1000 TABLET 7-13 TWICE 00:00: DAILY. 00 &lt 2022-0 No 10 7-13 00:00: 00 &lt 2022-0 No 15 7-13 00:00: 00 &lt 2022-0 No 5 7- [...] 7- 00:00: 00 &lt 2022-0 No 20 7- [...] 7- 00:00: 00 &lt 2022-0 No 15 7- [...] 7- 00:00: 00 &lt 2022-0 No 20 7- [...] 00:00: DAILY. 00 &lt 2022-0 No 10 7 00:00: 00 &lt 2022-0 No 15 10-16 [...] 8 HOURS 00 NEEDED &lt 2022-0 No - 00:00: 00 &lt 2022-0 No 30 10-09 00:00: 00 TAKE 1 2022-0 No 30 TABLET BY - MOUTH AT 00:00: BEDTIME 00 &lt 2022-0 No 7- 00:00: 00 Dose 2022-0 No 50 Unknown 10-09 00:00: 00 &lt 2022-0 No 20 10-09 00:00: 00 &lt 2022-0 No - 00:00: 00 TAKE 1 2022-0 No [id number] TABLET 10-09 TWICE 00:00: DAILY. 00 &lt 2022-0 No 25 10-09 00:00: 00 TAKE 1 2022-0 No 500 TABLET BY 7- MOUTH EVERY [...] 10-09 00:00: 00 TAKE 1 2022-0 No [id number] TABLET 10-09 TWICE 00:00: DAILY. 00 &lt [...] 10-09 00:00: 00 TAKE 1 2022-0 No [id number] TABLET 10-09 TWICE 00:00: DAILY. 00 &lt [...] 10-09 00:00: 00 TAKE 1 2022-0 No [id number] TABLET 7-06 TWICE 00:00: DAILY. 00 &lt 2022-0 No 25 7-06 00:00: 00 TAKE 1 2022-0 No 500 TABLET BY 7-06 MOUTH EVERY 00:00: 8 HOURS FOR 00 10 DAYS TAKE 1 2022-0 No 20 [...] No 6 00:00: 00 &lt 2022-0 No 627 00:00: 00 &lt 2022-0 No 627 00:00: 00 &lt 2022-0 No 627 00:00: 00 TAKE ONE 2022-0 No (1) TO TWO 27 (2) 00:00: TABLET(S) 00 BY MOUTH EVERY 6 HOURS NEEDED FOR PAIN , NO MORE THAN 8 TABLETS IN 24 HOURS. &lt 2022-0 No 627 00:00: 00 &lt 2022-0 No 6-27 00:00: 00 &lt 2022-0 No 6-27 00:00: 00 &lt 2022-0 No 6-27 00:00: 00 &lt 2022-0 No 627 00:00: 00 &lt 2022-0 No 627 00:00: 00 TAKE ONE 2022-0 No (1) TO TWO -27 (2) 00:00: TABLET(S) 00 BY MOUTH EVERY 6 HOURS NEEDED FOR PAIN , NO MORE THAN 8 TABLETS IN 24 HOURS. &lt 2022-0 No 627 00:00: 00 &lt 2022-0 No 627 00:00: 00 &lt 2022-0 No 627 00:00: 00 &lt 2022-0 No 627 00:00: 00 &lt 2022-0 No 627 00:00: 00 TAKE ONE 2022-0 No (1) TO TWO 6-27 (2) 00:00: TABLET(S) 00 BY MOUTH EVERY 6 HOURS NEEDED FOR PAIN , NO MORE THAN 8 TABLETS IN 24 HOURS. &lt 2022-0 No 627 00:00: 00 &lt 2022-0 No 6-27 00:00: 00 &lt 2022-0 No 627 00:00: 00 &lt 2022-0 No 627 00:00: 00 &lt 2022-0 No 627 00:00: 00 TAKE ONE 2-0 No (1) TO TWO -27 (2) 00:00: TABLET(S) 00 BY MOUTH EVERY 6 HOURS NEEDED FOR PAIN , NO MORE THAN 8 TABLETS IN 24 HOURS. &lt 2022-0 No 627 00:00: 00 &lt 2022-0 No 627 00:00: 00 &lt 2022-0 No 627 00:00: 00 &lt 2022-0 No 627 00:00: 00 &lt 2022-0 No 627 00:00: 00 TAKE 1 2022-0 No TABLET [...] ne 200 mcg 6-23 tablet 00:00: 00 Dose 2022-0 No Unknown 6-23 00:00: 00 levothyroxi 2022-0 No 1mcg ne [...] lisinopril 2022-0 No 1mg 5 mg tablet 4- 00:00: 00 Dose 2022-0 No Unknown 4-29 00:00: 00 metoclopram 2022-0 No 1mg ankit 10 mg 4-29 tablet 00:00: 00 Myrbetriq 2022-0 No 1mg 25 mg 4-29 tablet,exte 00:00: nded 00 release hydroxyzine 2022-0 No 1mg HCl 50 mg 4-29 tablet 00:00: 00 lisinopril 2022-0 No 1mg 5 mg tablet 4- 00:00: 00 metformin 2022-0 No 1mg 1,000 mg 4-29 tablet 00:00: 00 metoclopram 2022-0 No 1mg ankit 10 mg 4-29 tablet 00:00: 00 Myrbetriq 2022-0 No 1mg 25 mg 4-29 tablet,exte 00:00: nded 00 release hydroxyzine 2-0 No 1mg HCl 50 mg 4-29 tablet 00:00: 00 lisinopril 2022-0 No 1mg 5 mg tablet 4- 00:00: 00 metformin 2022-0 No 1mg 1,000 mg 4-29 tablet 00:00: 00 metoclopram 2022-0 No 1mg ankit 10 mg 4-29 tablet 00:00: 00 Myrbetriq 2022-0 No 1mg 25 mg 4-29 tablet,exte 00:00: nded 00 release hydroxyzine 2-0 No 1mg HCl 50 mg 4-29 tablet 00:00: 00 lisinopril 2022-0 No 1mg 5 mg tablet 4- 00:00: 00 metformin 2022-0 No 1mg 1,000 mg 4-29 tablet 00:00: 00 metoclopram 2022-0 No 1mg ankit 10 mg 4-29 tablet 00:00: 00 levothyroxi 2022-0 No 1mcg ne 300 mcg 4-27 tablet 00:00: 00 ferrous 2022-0 No 1(65 mg sulfate 325 4- iron) mg (65 mg 00:00: iron) 00 [...] 1 mg tablet 07-31 00:00: 00 levothyroxi 2-0 No 1mcg ne [...] 10 mg 4-27 tablet 00:00: 00 Dose 2022-0 No Unknown 4-27 00:00: 00 levothyroxi 2022-0 No 1mcg [...] 10 mg 4-27 tablet 00:00: 00 Dose 2022-0 No Unknown 4-27 00:00: 00 levothyroxi 2022-0 No 1mcg ne 75 mcg 4-27 tablet 00:00: 00 levothyroxi 2022-0 No 1mcg ne 200 mcg 4-27 tablet 00:00: 00 Dose 2022-0 No Unknown 4-01 [...] Dose 2022-0 No Unknown 4-01 00:00: 00 levothyroxi 2022-0 No 1mcg ne [...] 75 mcg 4- tablet 00:00: 00 levothyroxi 2-0 No 1mcg [...] 4- 00:00: 00 Dose 2-0 No Unknown 4- 00:00: 00 Dose 2022-0 No Unknown 4- 00:00: 00 Dose 2-0 No Unknown 4- 00:00: 00 Dose 2-0 No Unknown 4- 00:00: 00 metformin 2-0 No 1mg 1,000 mg 4-01 tablet 00:00: 00 levothyroxi 2021-0 No 1mcg ne 75 mcg 4-01 tablet 00:00: 00 levothyroxi 2-0 No 1mcg ne 200 mcg 4-01 tablet 00:00: 00 hydrocortis 2021-0 No 1mg one acetate 4-01 25 mg 00:00: rectal 00 suppository nitrofurant 2-0 No 1mg oin 4-01 monohydrate 00:00: /macrocryst 00 als 100 mg capsule Dose 2021-0 No Unknown 4- 00:00: 00 Dose 2022-0 No Unknown 4- 00:00: 00 Dose 2022-0 No Unknown 4- 00:00: 00 Dose 2022-0 No Unknown 4-01 00:00: 00 Dose 2022-0 No Unknown 4- 00:00: 00 Dose 2-0 No Unknown 4- 00:00: 00 [...] 1-25 00:00: 00 Dose 2022-0 No Unknown 1- 00:00: 00 Dose 2022-0 No Unknown 1- 00:00: 00 Dose 2022-0 No Unknown 1- 00:00: 00 Dose 2022-0 No Unknown 1- 00:00: 00 Dose 2022-0 No Unknown 1- 00:00: 00 Dose 2-0 No Unknown 1- 00:00: 00 Dose 2-0 No Unknown 1- 00:00: 00 neomycin-po 2-0 No 4mg/mL- lymyxin-hyd 1-19 unit/mL rocort 3.5 00:00: -% mg-10,000 00 unit/mL-1 % ear drops,susp lisinopril 2-0 No 1mg 5 mg tablet 1-19 00:00: 00 hydroxyzine 2-0 No 1mg HCl 50 mg 1-19 tablet 00:00: 00 Myrbetriq 2-0 No 1mg 25 mg 1-19 tablet,exte 00:00: nded 00 release Dose 2-0 No Unknown 1-19 00:00: 00 metformin 2-0 No 1mg 1,000 mg 1-19 tablet 00:00: 00 Dose 2-0 No Unknown 1-19 00:00: 00 metoprolol 2-0 No 1mg tartrate 25 1-19 mg tablet 00:00: 00 metoclopram 2-0 No 1mg ankit 10 mg 1-19 tablet 00:00: 00 azithromyci 2-0 No mg n 250 mg 1-19 tablet 00:00: 00 Dose 2-0 No Unknown 1-19 00:00: 00 Dose 2-0 No Unknown 1-19 00:00: 00 Dose 2-0 No Unknown 1-19 00:00: 00 levothyroxi 2-0 No 1mcg ne 150 mcg 1-19 capsule 00:00: 00 neomycin-po 2-0 No 4mg/mL- [...] 150 mcg 1-19 capsule 00:00: 00 neomycin-po 2-0 No 4mg/mL- lymyxin-hyd 1-19 unit/mL rocort 3.5 00:00: -% mg-10,000 00 unit/mL-1 % ear drops,susp Humulin 2-0 No 1unit/m 70/30 U-100 1-19 L Insulin 100 00:00: (70-30) unit/mL 00 subcutaneou s suspension lisinopril 2-0 No 1mg 5 mg tablet 04-24 00:00: 00 hydroxyzine 2-0 No 1mg HCl 50 mg -19 tablet 00:00: 00 Myrbetriq 2-0 No 1mg 25 mg 1-19 tablet,exte 00:00: nded 00 release Dose 2-0 No Unknown 04-24 00:00: 00 metformin 2-0 No 1mg 1,000 mg 1-19 tablet 00:00: 00 metformin 2-0 No 1mg 500 mg 1-19 tablet 00:00: 00 metoprolol 2-0 No 1mg tartrate 25 1-19 mg tablet 00:00: 00 metoclopram 2-0 No 1mg ankit 10 mg 1-19 tablet 00:00: 00 azithromyci 2-0 No mg n 250 mg -19 tablet 00:00: 00 Dose 2022-0 No Unknown -19 00:00: 00 Dose 2022-0 No Unknown -19 00:00: 00 Dose 2022-0 No Unknown -19 00:00: 00 levothyroxi 2022-0 No 1mcg ne 150 mcg 1-19 capsule 00:00: 00 Dose 2022-0 No Unknown 04-11 00:00: 00 lisinopril 2022-0 No 1mg 5 mg tablet 04-11 00:00: 00 lisinopril 2022-0 No 1mg 5 mg tablet 04-11 00:00: 00 lisinopril 2022-0 No 1mg 5 mg tablet 04-11 00:00: 00 lisinopril 2022-0 No 1mg 5 mg tablet 06 00:00: 00 hydroxyzine 2022-0 No 1mg HCl [...] 150 mcg 2-16 capsule 00:00: 00 metformin 2020-1 No 1mg 500 [...] 1-14 capsule,del 00:00: ayed 00 release levothyroxi 2020-1 No 1mcg ne 150 mcg [...] ankit 10 mg 7-28 tablet 00:00: 00 atorvastati 2021-0 No 1mg [...] ankit 10 mg 7-13 tablet 00:00: 00 Trintellix 2021-0 No 1mg 20 mg 7-13 tablet 00:00: 00 Myrbetriq 2021-0 No 1mg 25 mg 7-13 tablet,exte 00:00: nded 00 release Dose 2021-0 No Unknown 7-13 00:00: 00 Dose 2021-0 No Unknown 7-13 00:00: 00 alprazolam 2021-0 No 1mg 0.5 mg 7-13 tablet 00:00: 00 metoprolol 2021-0 No 1mg tartrate 25 7-13 mg tablet 00:00: 00 metoclopram 2021-0 No 1mg ankit 10 mg 7-13 tablet 00:00: 00 mirtazapine 2021-0 No 1mg 15 mg 7-13 tablet 00:00: 00 levothyroxi 2021-0 No 1mcg ne 300 mcg 7-13 tablet 00:00: 00 Dose 2021-0 No Unknown 7-13 00:00: 00 Vitamin D2 2021-0 No 1(50,00 1,250 mcg 7-13 0 unit) (50,000 00:00: unit) 00 capsule mirtazapine 2021-0 No 1mg 15 mg 7-13 [...] 10 mg 7-13 tablet 00:00: 00 Humulin 2021-0 No 1unit/m 70/30 U-100 7-13 [...] 15 mg 7-13 tablet 00:00: 00 levothyroxi 2020- No 1mcg ne 300 mcg 7-13 tablet 00:00: 00 omeprazole 2020-0 No 1mg 40 mg 7-13 capsule,del 00:00: ayed 00 release Vitamin D2 No 1(50,00 1,250 mcg 7-13 0 unit) (50,000 00:00: unit) 00 capsule metformin 2020- No 1mg 500 mg 7-13 tablet 00:00: 00 Immunizations Ordered Immunization Filled Immunization Date Status Commen ts Source Name Name Influenza, injectable, 2022-02-18 Completed Madin Zuleima Canine 00:00:00 Kidney, preservative-free, quadrivalent Moderna COVID-19 2021-02-07 Completed Vaccine 00:00:00 Moderna COVID-19 2021-02-07 Completed Vaccine 00:00:00 Moderna COVID-19 2021-02-07 Completed Vaccine 00:00:00 Moderna COVID-19 2021-02-07 Completed Vaccine 00:00:00 Moderna COVID-19 2021-02-07 Completed Vaccine 00:00:00 Moderna COVID-19 2020-07-19 Completed Vaccine 00:00:00 Moderna COVID-19 2020-06-21 Completed Vaccine 00:00:00 Vital Signs Vital Name Observation Time Observation Value Comments Source Systolic blood 2022-02-08 12:26:00 151 mm[Hg] Univer sity of pressure [facility] Diastolic blood 2022-02-08 12:26:00 76 mm[Hg] Unive rsity of [facility] Heart rate 2022-02-08 12:26:00 102 /min [facility] Body temperature 2022-02-08 12:26:00 37 Keli [facility] rate 2022-02-08 12:26:00 20 /min [facility] Body height 2022-02-08 12:26:00 157.5 cm [facility] Body weight 2022-02-08 12:26:00 91.627 kg [facility] [place] [facility] BMI 2022-02-08 12:26:00 36.95 kg/m2 [facility] [place] [facility] Oxygen saturation in 2022-02-08 12:26:00 99 /min [facility] Arterial blood by [facility] [place] Pulse oximetry Branch Systolic blood 2021-12-17 04:49:00 147 mm[Hg] Univer sity of pressure [place] [facility] Diastolic blood 2021-12-17 04:49:00 74 mm[Hg] Unive rsity of pressure [place] [facility] Heart rate 2021-12-17 04:49:00 97 /min [facility] [place] [facility] Body temperature 2021-12-17 04:49:00 37 Keli [facility] [place] [facility] Respiratory rate 2021-12-17 04:49:00 18 /min [facility] [place] [facility] Body weight 2021-12-17 04:49:00 88.905 kg [facility] [place] [facility] BMI 2021-12-17 04:49:00 35.85 kg/m2 [facility] [place] [facility] Oxygen saturation in 2021-12-17 04:49:00 100 /min [facility] Arterial blood by [facility] Pulse oximetry Branch Systolic blood 2021-10-19 08:10:00 123 mm[Hg] [facility] [place] [facility] Diastolic blood 2021-10-19 08:10:00 87 mm[Hg] Unive rsity of pressure [place] [facility] Heart rate 2021-10-19 08:10:00 82 /min [facility] [place] [facility] Respiratory rate 2021-10-19 08:10:00 18 /min [facility] [place] [facility] Oxygen saturation in 2021-10-19 08:10:00 98 /min [facility] Arterial blood by [facility] [place] Pulse oximetry Branch Body temperature 2021-10-19 04:15:00 36.83 Keli [facility] [place] [facility] Body height 2021-10-19 04:15:00 157.5 cm [facility] [place] [facility] Body weight 2021-10-19 04:15:00 88.905 kg [facility] [place] [facility] BMI 2021-10-19 04:15:00 35.85 kg/m2 [facility] [place] [facility] BP Systolic 2022-02-18 11:05:00 97 mm[Hg] BP Diastolic 2022-02-18 11:05:00 67 mm[Hg] Weight Measured 2022-02-18 11:05:00 210.60 pounds Height Measured 2022-02-18 11:05:00 61.81 inches Body Temperature 2022-02-18 11:05:00 98.20 degrees Heart Rate 2022-02-18 11:05:00 98.00 /min Respiratory Rate 2022-02-18 11:05:00 18.00 /min BP Systolic 2022-01-14 10:36:00 122 mm[Hg] BP [...] / Time Performed Performing Clinician Sour e XR KNEE 3 VW LEFT 2022-02-08 13:19:39 Chad Marvin [facility] CONSENT/REFUSAL FOR 2022-02-08 12:22:24 Doctor Unassigned, No [facility] [place] DIAGNOSIS AND Name Medical Branch TREATMENT NOTICE OF PRIVACY 2021-12-17 04:36:17 [facility]igned, [facility]US[facility] FOR 2021-12-17 04:35:03 Doctor Unassigned, No [facility] [place] DIAGNOSIS AND Name Medical Branch TREATMENT XR HIPS 3 VW LEFT 2021-10-19 04:42:39 Yovana Rod [facility] NOTICE OF PRIVACY 2021-10-19 04:04:38 Doctor Unassigned, No Univ ersity [facility] Branch CONSENT/REFUSAL FOR 2021-10-19 04:04:16 Doctor Unassigned, No [facility] [place] DIAGNOSIS AND Name Medical Branch TREATMENT Plan of Care Planned Activity Planned Date Details Comments Source Goal Plan of Care Note [code = 55819-2] Goal Plan of Care Note [code = 31130-9] Goal Plan of Care Note [code = 79021-0] Goal Plan of Care Note [code = 85766-4] Goal Plan of Care Note [code = 01821-8] Goal Plan of Care Note [code = 31369-7] Goal Plan of Care Note [code = 64669-9] Goal Plan of Care Note [code = 02863-4] Goal Plan of Care Note [code = 02318-5] Goal Plan of Care Note [code = 87839-0] Goal Plan of Care Note [code = 10151-7] Goal Plan of Care Note [code = 70235-1] Goal Plan of Care Note [code = 84682-3] Goal Plan of Care Note [code = 95849-0] Goal Plan of Care Note [code = 88935-7] Goal Plan of Care Note [code = 03323-6] Goal Plan of Care Note [code = 13580-7] Goal Plan of Care Note [code = 48416-1] Goal Plan of Care Note [code = 67508-0] Goal Plan of Care Note [code = 35741-2] Goal Plan of Care Note [code = 07004-7] Goal Plan of Care Note [code = 76559-9] Goal Plan of Care Note [code = 06458-4] Goal Plan of Care Note [code = 96304-5] Goal Plan of Care Note [code = 29945-4] Goal Plan of Care Note [code = 96970-1] Goal Plan of Care Note [code = 85139-3] Goal Plan of Care Note [code = 89759-6] Goal Plan of Care Note [code = 75770-6] Goal Plan of Care Note [code = 14963-2] Goal Plan of Care Note [code = 75802-3] Goal Plan of Care Note [code = 93750-4] Goal Plan of Care Note [code = 59361-1] Goal Plan of Care Note [code = 39113-5] Goal Plan of Care Note [code = 83314-4] Goal Plan of Care Note [code = 20146-2] Goal Plan of Care Note [code = 05657-5] Goal Plan of Care Note [code = 85300-4] Goal Plan of Care Note [code = 86673-8] Goal Plan of Care Note [code = 60149-1] Goal Plan of Care Note [code = 48840-8] Goal Plan of Care Note [code = 56630-1] Goal Plan of Care Note [code = 00370-2] Goal Plan of Care Note [code = 46109-8] Goal Plan of Care Note [code = 25070-5] Goal Plan of Care Note [code = 19874-0] Goal Plan of Care Note [code = 06877-7] Goal Plan of Care Note [code = 26165-5] Goal Plan of Care Note [code = 49546-1] Goal Plan of Care Note [code = 12515-3] Goal Plan of Care Note [code = 03395-0] Goal Plan of Care Note [code = 26313-4] Goal Plan of Care Note [code = 52475-7] Goal Plan of Care Note [code = 98425-4] Goal Plan of Care Note [code = 76836-5] Goal Plan of Care Note [code = 59898-9] Goal Plan of Care Note [code = 25506-3] Goal Plan of Care Note [code = 47804-2] Goal Plan of Care Note [code = 46374-5] Goal Plan of Care Note [code = 01078-7] Goal Plan of Care Note [code = 25863-8] Goal Plan of Care Note [code = 77574-3] Goal Plan of Care Note [code = 30933-0] Goal Plan of Care Note [code = 04473-0] Goal Plan of Care Note [code = 53790-1] Goal Plan of Care Note [code = 41118-6] Goal Plan of Care Note [code = 41654-2] Goal Plan of Care Note [code = 90523-9] Goal Plan of Care Note [code = 37574-1] Goal Plan of Care Note [code = 01066-3] Goal Plan of Care Note [code = 68367-3] Goal Plan of Care Note [code = 08328-8] Goal Plan of Care Note [code = 74354-5] Goal Plan of Care Note [code = 60133-0] Goal Plan of Care Note [code = 41852-8] Goal Plan of Care Note [code = 41053-4] Goal Plan of Care Note [code = 72877-3] Goal Plan of Care Note [code = 54591-7] Goal Plan of Care Note [code = 10803-6] Goal Plan of Care Note [code = 55923-2] Goal Plan of Care Note [code = 76963-2] Goal Plan of Care Note [code = 81155-6] Goal Plan of Care Note [code = 11960-5] Goal Plan of Care Note [code = 36465-4] Goal Plan of Care Note [code = 43047-4] Goal Plan of Care Note [code = 98759-9] Goal Plan of Care Note [code = 53756-4] Goal Plan of Care Note [code = 70453-5] Goal Plan of Care Note [code = 51936-0] Goal Plan of Care Note [code = 85410-6] Goal Plan of Care Note [code = 09118-8] Goal Plan of Care Note [code = 78666-2] Goal Plan of Care Note [code = 19117-7] Goal Plan of Care Note [code = 01927-2] Goal Plan of Care Note [code = 42199-9] Goal Plan of Care Note [code = 09020-1] Goal Plan of Care Note [code = 57502-9] Goal Plan of Care Note [code = 95283-3] Goal Plan of Care Note [code = 07634-5] Goal Plan of Care Note [code = 16343-0] Goal Plan of Care Note [code = 05433-3] Goal Plan of Care Note [code = 05855-0] Goal Plan of Care Note [code = 58191-6] Goal Plan of Care Note [code = 97332-4] Goal Plan of Care Note [code = 32312-8] Goal Plan of Care Note [code = 30206-7] Goal Plan of Care Note [code = 11049-8] Goal Plan of Care Note [code = 49745-3] Goal Plan of Care Note [code = 78396-3] Goal Plan of Care Note [code = 48811-6] Goal Plan of Care Note [code = 62338-4] Goal Plan of Care Note [code = 10040-6] Goal Plan of Care Note [code = 38752-4] Goal Plan of Care Note [code = 21627-0] Goal Plan of Care Note [code = 21298-9] Goal Plan of Care Note [code = 26237-1] Goal Plan of Care Note [code = 65352-7] Goal Plan of Care Note [code = 07972-5] Goal Plan of Care Note [code = 28991-5] Goal Plan of Care Note [code = 58122-0] Goal Plan of Care Note [code = 16397-8] Goal Plan of Care Note [code = 85648-6] Goal Plan of Care Note [code = 78805-6] Goal Plan of Care Note [code = 11193-1] Goal Plan of Care Note [code = 81467-4] Goal Plan of Care Note [code = 62354-4] Goal Plan of Care Note [code = 83929-2] Goal Plan of Care Note [code = 57230-2] Goal Plan of Care Note [code = 52234-2] Goal Plan of Care Note [code = 81361-7] Goal Plan of Care Note [code = 52077-9] Goal Plan of Care Note [code = 60779-9] Goal Plan of Care Note [code = 12291-5] Goal Plan of Care Note [code = 18262-3] Goal Plan of Care Note [code = 35580-8] Goal Plan of Care Note [code = 10208-8] Goal Plan of Care Note [code = 36522-5] Goal Plan of Care Note [code = 49213-4] Goal Plan of Care Note [code = 69572-5] Goal Plan of Care Note [code = 02450-2] Goal Plan of Care Note [code = 18694-7] Goal Plan of Care Note [code = 06366-5] Encounters Start End Encounter Admission Attending Care Care Encounter Source Date/Time Date/Time Type Type Clinicians Facility Department ID 2022-01-06 Outpatient [facility] [id number] CT 15:02:53 [id number] [facility] 2021-09-19 Outpatient SCOUT, [facility] [id number] CT 01:03:24 JULIA [id number] [facility] 2022-02-18 2022-02-18 Outpatient [facility] [id number] Gene 10:55:27 10:55:27 [address] [place] 2022-02-18 2022-02-18 Outpatient [id number]- [id number] h3aq87-j 00:00:00 00:00:00 Visit vt56-50t5 u27-23i8-8 -8289-9be 289-9be0be 5towk001e ld940l 2022-02-08 2022-02-08 Emergency X CHAD MARVIN [facility] ERT 1 [id number] Univers 07:27:00 08:55:00 CHAD MARVIN itranjan [facility] 2022-02-08 2022-02-08 Emergency Yon [facility] [id number] [facility] 07:27:00 08:55:00 Chad HITCHCOCK 350.1.13.10 ity of [place] 4.2.7.2.686 [facility] [id number] [address] 2022-01-14 2022-01-14 Outpatient SFA SFA [id number]- Gene 10:28:11 10:28:11 34566 F Abbe 2022-01-14 2022-01-14 Outpatient 8pwe2p34- [id number] 8b at1k83-z 00:00:00 00:00:00 Visit fe58-425z y14-241l-7 -7c70-i39 x26-g410jn 2ga34ncmx 51adba 2022-01-02 2022-01-02 Outpatient SFA SFA [id number]- Gene 15:06:03 15:06:03 90977 F [place] 2021-12-16 2021-12-17 Emergency X EREN OCHOA [facility] ERT 1 [id number] Univers 23:50:00 01:28:00 EREN OCHOA [facility] 2021-12-16 2021-12-17 Emergency Nicola [facility] [id number] [facility] 23:50:00 01:28:00 Eren [place] 350.1.13.10 i ty of [place] 4.2.7.2.686 [facility] [id number] [address] 2021-12-02 2021-12-02 Outpatient [id number] 18sp52-4 00:00:00 00:00:00 Visit 2s57-9o72 t42-2j44-3 -5ul4-q01 af5-k94796 [id number] 812192 8740-07-21 2021-10-24 Outpatient [id number]- [id number] ux24z3-3 00:00:00 00:00:00 Visit 422b-482d 22b-482d-8 -8157-b70 157-b704e0 7c62w8qtw 0f6bdd 2021-10-18 2021-10-19 Emergency X [facility] ERT [id number] Univers 23:20:00 03:26:00 YOVANA hearn [facility] 2021-10-18 2021-10-19 [facility] [id number] [facility] 23:20:00 03:26:00 Yovana HTICHCOCK 350.1.13.10 i [facility] 4.2.7.2.686 [facility] [id number] [address] 2021-09-30 2021-09-30 Outpatient [id number]- [id number] c27b38-4 00:00:00 00:00:00 Visit 6l6m-2clw h4r-8njl-n -r2j1-yfb 7z8-qawp80 d13969hx5 696ce1 2021-06-20 2021-06-20 [facility] [address] [facility] 12:04:00 23:59:00 JULIA Results Test Description Test Time Test Comments Results Result Comments Source TSH, THIRD GENERATION 2022-01-15 06:52:55 Test Item Value Reference Range Interpretation Comme nts TSH, THIRD GENERATION (test code = 2821) 2.700 UIU/ML 0.400-4.100 COMPREHENSIVE METABOLIC [id number] 04:09:28 Test Item Value Reference Range Interpretation Comments GLUCOSE (test code = 169 MG/DL 70-99 H 2216) BUN (test code = 17 MG/DL 11-26) CREATININE (test 0.86 MG/DL 0.60-1.30 code = 2214) eGFR (2020 CKD-EPI) 76 ML/MIN/1.73 >60 (test code = 13378) CALC BUN/CREAT (test 20 RATIO 10-01 code = 2235) SODIUM (test code = 141 MEQ/L 837-882 1293) POTASSIUM (test code 4.3 MEQ/L 3.5-5.4 = 2228) CHLORIDE (test code 99 MEQ/L 95-107 = 2215) CARBON DIOXIDE (test 25 MEQ/L 19-31 code = 220) CALCIUM (test code = 9.6 MG/DL 8.5-10.5 2208) PROTEIN, TOTAL (test 7.6 G/DL 6.1-8.3 code = 222) ALBUMIN (test code = 4.3 G/DL 3.5-5.2 [...] PHOSPHATASE 92 U/L 40-140 (test code = 2203) AST (test code = 35 U/L 9-40 2217) ALT (test code = 34 U/L 5-40 2218) HEMOGLOBIN [id number] 02:13:42 Test Item Value Reference Range Interpretation Comments HEMOGLOBIN A1c (test 6.8 % 4.2-5.6 H [employer] AN DIABETES code = 81811) ASSOCIATION IDELINES FOR HGB A1C: PREDIABETES/INC REASED [...] UNLESS OTHERWIS E INDICATED, ALL TESTING PER FORMED ATCLINICAL PATH [facility], I [place]. [address] [place] [address] 6166 LABORATORY DIRE CTOR: LILLI VELAZQUEZ M.D. CLIA NUMBER [id number] [place]. [id number] CBC W/AUTO DIFF WITH [id number] 02:02:15 Test Item Value Reference Range Interpretation [...] RBCS 0.00 K/UL 0.00-0.11 (test code = 52514) COMPREHENSIVE METABOLIC [id number] 00:00:00 Test Item Value Reference Range Interpretation Comments GLUCOSE (test code = 2217) 169 MG/DL BUN (test code = 2208) 17 MG/DL CREATININE (test code = 2214) 0.86 MG/DL eGFR (2020 CKD-EPI) (test code 76 ML/MIN/1.73 = 33767) CALC BUN/CREAT (test code = 20 RATIO [...] code = 2219) 34 U/L COMPREHENSIVE METABOLIC [id number] 00:00:00 Test Item Value Reference Range Interpretation Comments GLUCOSE (test code = 2217) 169 MG/DL BUN (test code = 2208) 17 MG/DL CREATININE (test code = 2214) 0.86 MG/DL eGFR (2020 CKD-EPI) (test code 76 ML/MIN/1.73 = 69413) CALC BUN/CREAT (test code = 20 RATIO [...] code = 2219) 34 U/L CBC W/AUTO [id number] 00:00:00 Test Item Value Reference Range Interpretation [...] NUCLEATED RBCS (test code = 0.00 K/UL 24205) CBC W/AUTO [id number] 00:00:00 Test Item Value Reference Range Interpretation [...] NUCLEATED RBCS (test code = 0.00 K/UL 70583) CBC W/AUTO [id number] 00:00:00 Test Item Value Reference Range Interpretation [...] NUCLEATED RBCS (test code = 0.00 K/UL 77924) TSH, THIRD [id number] 00:00:00 Test Item Value Reference Range Interpretation Comments TSH, THIRD GENERATION (test code 2.700 UIU/ML = 2821) TSH, THIRD [id number] 00:00:00 Test Item Value Reference Range Interpretation Comments TSH, THIRD GENERATION (test code 2.700 UIU/ML = 2821) TSH, THIRD [id number] 00:00:00 Test Item Value Reference Range Interpretation Comments TSH, THIRD GENERATION (test code 2.700 UIU/ML = 2821) HEMOGLOBIN [id number] 00:00:00 Test Item Value Reference Range Interpretation Comments HEMOGLOBIN A1c (test code = 41282) 6.8 % HEMOGLOBIN [id number] 00:00:00 Test Item Value Reference Range Interpretation Comments HEMOGLOBIN A1c (test code = 68105) 6.8 % HEMOGLOBIN [id number] 00:00:00 Test Item Value Reference Range Interpretation Comments HEMOGLOBIN A1c (test code = 55588) 6.8 % COMPREHENSIVE METABOLIC [id number] 00:00:00 Test Item Value Reference Range Interpretation Comments GLUCOSE (test code = 2217) 169 MG/DL BUN (test code = 2208) 17 MG/DL CREATININE (test code = 2214) 0.86 MG/DL eGFR (2020 CKD-EPI) (test code 76 ML/MIN/1.73 = 76311) CALC BUN/CREAT (test code = 20 RATIO 223) SODIUM (test code = 2231) 141 MEQ/L [...] RATIO 2233) BILIRUBIN, TOTAL (test code = 0.5 MG/DL 2206) ALKALINE PHOSPHATASE (test 92 U/L code = 2204) AST (test code = 2218) 35 U/L ALT (test code = 2219) 34 U/L COMPREHENSIVE METABOLIC [id number] 00:00:00 Test Item Value Reference Range Interpretation Comments GLUCOSE (test code = 2217) 169 MG/DL BUN (test code = 2208) 17 MG/DL CREATININE (test code = 2214) 0.86 MG/DL eGFR (2020 CKD-EPI) (test code 76 ML/MIN/1.73 = 94266) CALC BUN/CREAT (test code = 20 RATIO [...] code = 2219) 34 U/L CBC W/AUTO [id number] 00:00:00 Test Item Value Reference Range Interpretation [...] NUCLEATED RBCS (test code = 0.00 K/UL 99896) CBC W/AUTO [id number] 00:00:00 Test Item Value Reference Range Interpretation [...] NUCLEATED RBCS (test code = 0.00 K/UL 87067) CBC W/AUTO [id number] 00:00:00 Test Item Value Reference Range Interpretation [...] NUCLEATED RBCS (test code = 0.00 K/UL 92791) TSH, THIRD [id number] 00:00:00 Test Item Value Reference Range Interpretation Comments TSH, THIRD GENERATION (test code 2.700 UIU/ML = 2821) TSH, THIRD [id number] 00:00:00 Test Item Value Reference Range Interpretation Comments TSH, THIRD GENERATION (test code 2.700 UIU/ML = 2821) TSH, THIRD [id number] 00:00:00 Test Item Value Reference Range Interpretation Comments TSH, THIRD GENERATION (test code 2.700 UIU/ML = 2821) HEMOGLOBIN [id number] 00:00:00 Test Item Value Reference Range Interpretation Comments HEMOGLOBIN A1c (test code = 91216) 6.8 % HEMOGLOBIN [id number] 00:00:00 Test Item Value Reference Range Interpretation Comments HEMOGLOBIN A1c (test code = 78889) 6.8 % HEMOGLOBIN [id number] 00:00:00 Test Item Value Reference Range Interpretation Comments HEMOGLOBIN A1c (test code = 43885) 6.8 % VITAMIN D, 25 [id number] 06:58:12 Test Item Value Reference Range Interpretation Comments VITAMIN D, 25 OH 18 NG/ML SEE BELOW L NOTE: 25-H YDROXYVITAMIN D (test code = 4958) ASSAY INC LUDES 25-HYDROXYVITAM IN D2 AND D3. METHODOLOGY IS CHEMILUMINESCEN T IMMUNOASSAY. INTERPRETIVE RA NGES PEDIATRIC (<17 YEARS) . . . . . . . . . . . NG/ML 20-100ADULT: I NSUFFICIENT . . . . . . . . . . . . . . NG/ML <20 SUBOP TIMAL . . . . . . . . . . . . . . . NG/ML 20-29 OPT IMAL . . . . . . . . . . . . . . . . . NG/ML 30-100 U NLESS OTHERWISE INDIC ATED, ALL TESTING PERFORM ED ATCLINICAL PATH OLOGY LABORATORIES, [facility]. [address] [place] [address] LABORATORY DIRE CTOR: Radha LOAIZA. CLIA NUMBER [id number] CAP ACCREDITATION N O. [id number] TSH, THIRD [id number] 06:45:08 Test Item Value Reference Range Interpretation Comments TSH, THIRD GENERATION (test code 1.290 UIU/ML 0.400-4.100 = 2821) VITAMIN [id number] 06:45:08 Test Item Value Reference Range Interpretation Comments VITAMIN B-12 (test code = 2840) 647 PG/ML 200-950 COMPREHENSIVE METABOLIC [id number] 05:39:52 Test Item Value Reference Range Interpretation Comments GLUCOSE (test code = 119 MG/DL 70-99 H 2216) BUN (test code = 19 MG/DL 11-26) CREATININE (test 0.98 MG/DL 0.60-1.30 code = 2214) eGFR (2020 CKD-EPI) 65 ML/MIN/1.73 >60 (test code = 11166) CALC BUN/CREAT (test 19 RATIO 10-01 code = 2235) SODIUM (test code = 137 MEQ/L 197-509 8331) POTASSIUM (test code 4.9 MEQ/L 3.5-5.4 = 2227) CHLORIDE (test code 97 MEQ/L 95-107 = 2214) CARBON DIOXIDE (test 23 MEQ/L 19-31 code = 2205) CALCIUM (test code = 9.7 MG/DL 8.5-10.5 2208) PROTEIN, TOTAL (test 7.9 G/DL 6.1-8.3 code = 2228) ALBUMIN (test code = 4.6 G/DL 3.5-5.2 2200) CALC GLOBULIN (test 3.3 G/DL 1.9-3.7 code = 2239) CALC A/G RATIO (test 1.4 RATIO 1.0-2.6 code = 2233) BILIRUBIN, TOTAL 0.3 MG/DL See_Comment [Automated message] [...] 5-40 H 2218) CBC W/AUTO DIFF WITH [id number] 02:09:53 Test Item Value Reference Range Interpretation [...] RBCS 0.00 K/UL 0.00-0.11 (test code = 75433) TSH, THIRD [id number] 00:00:00 Test Item Value Reference Range Interpretation Comments TSH, THIRD GENERATION (test code 1.290 UIU/ML = 2821) TSH, THIRD [id number] 00:00:00 Test Item Value Reference Range Interpretation Comments TSH, THIRD GENERATION (test code 1.290 UIU/ML = 2821) TSH, THIRD [id number] 00:00:00 Test Item Value Reference Range Interpretation Comments TSH, THIRD GENERATION (test code 1.290 UIU/ML = 2821) CBC W/AUTO [id number] 00:00:00 Test Item Value Reference Range Interpretation [...] NUCLEATED RBCS (test code = 0.00 K/UL 35136) CBC W/AUTO [id number] 00:00:00 Test Item Value Reference Range Interpretation [...] NUCLEATED RBCS (test code = 0.00 K/UL 51115) CBC W/AUTO [id number] 00:00:00 Test Item Value Reference Range Interpretation [...] NUCLEATED RBCS (test code = 0.00 K/UL 13959) COMPREHENSIVE METABOLIC [id number] 00:00:00 Test Item Value Reference Range Interpretation Comments GLUCOSE (test code = 2217) 119 MG/DL BUN (test code = 2208) 19 MG/DL CREATININE (test code = 2214) 0.98 MG/DL eGFR (2020 CKD-EPI) (test code 65 ML/MIN/1.73 = 99376) CALC BUN/CREAT (test code = 19 RATIO [...] code = 2219) 48 U/L COMPREHENSIVE METABOLIC [id number] 00:00:00 Test Item Value Reference Range Interpretation Comments GLUCOSE (test code = 2217) 119 MG/DL BUN (test code = 2208) 19 MG/DL CREATININE (test code = 2214) 0.98 MG/DL eGFR (2020 CKD-EPI) (test code 65 ML/MIN/1.73 = 82939) CALC BUN/CREAT (test code = 19 RATIO [...] (test code = 2219) 48 U/L VITAMIN [id number] 00:00:00 Test Item Value Reference Range Interpretation Comments VITAMIN B-12 (test code = 2840) 647 PG/ML VITAMIN [id number] 00:00:00 Test Item Value Reference Range Interpretation Comments VITAMIN B-12 (test code = 2840) 647 PG/ML VITAMIN [id number] 00:00:00 Test Item Value Reference Range Interpretation Comments VITAMIN B-12 (test code = 2840) 647 PG/ML VITAMIN D, 25 [id number] 00:00:00 Test Item Value Reference Range Interpretation Comments VITAMIN D, 25 OH (test code = 4958) 18 NG/ML VITAMIN D, 25 [id number] 00:00:00 Test Item Value Reference Range Interpretation Comments VITAMIN D, 25 OH (test code = 4958) 18 NG/ML TSH, THIRD [id number] 00:00:00 Test Item Value Reference Range Interpretation Comments TSH, THIRD GENERATION (test code 1.290 UIU/ML = 2821) TSH, THIRD [id number] 00:00:00 Test Item Value Reference Range Interpretation Comments TSH, THIRD GENERATION (test code 1.290 UIU/ML = 2821) TSH, THIRD [id number] 00:00:00 Test Item Value Reference Range Interpretation Comments TSH, THIRD GENERATION (test code 1.290 UIU/ML = 2821) CBC W/AUTO [id number] 00:00:00 Test Item Value Reference Range Interpretation [...] NUCLEATED RBCS (test code = 0.00 K/UL 72192) CBC W/AUTO [id number] 00:00:00 Test Item Value Reference Range Interpretation [...] NUCLEATED RBCS (test code = 0.00 K/UL 52488) CBC W/AUTO [id number] 00:00:00 Test Item Value Reference Range Interpretation [...] NUCLEATED RBCS (test code = 0.00 K/UL 59635) COMPREHENSIVE METABOLIC [id number] 00:00:00 Test Item Value Reference Range Interpretation Comments GLUCOSE (test code = 2217) 119 MG/DL BUN (test code = 2208) 19 MG/DL CREATININE (test code = 2214) 0.98 MG/DL eGFR (2020 CKD-EPI) (test code 65 ML/MIN/1.73 = 49265) CALC BUN/CREAT (test code = 19 RATIO [...] CALC GLOBULIN (test code = 3.3 G/DL 224) CALC A/G RATIO (test code = 1.4 RATIO 2234) BILIRUBIN, TOTAL (test code = 0.3 MG/DL 2206) ALKALINE PHOSPHATASE (test 79 U/L code = 2204) AST (test code = 2218) 48 U/L ALT (test code = 2219) 48 U/L COMPREHENSIVE METABOLIC [id number] 00:00:00 Test Item Value Reference Range Interpretation Comments GLUCOSE (test code = 2217) 119 MG/DL BUN (test code = 2208) 19 MG/DL CREATININE (test code = 2214) 0.98 MG/DL eGFR (2020 CKD-EPI) (test code 65 ML/MIN/1.73 = 03065) CALC BUN/CREAT (test code = 19 RATIO 2235) SODIUM (test code = 223) 137 MEQ/L POTASSIUM (test code = 2228) 4.9 MEQ/L CHLORIDE (test code = 2215) 97 MEQ/L CARBON DIOXIDE (test code = 23 MEQ/L 2205) CALCIUM (test code = 2209) 9.7 MG/DL PROTEIN, TOTAL (test code = 7.9 G/DL 2228) ALBUMIN (test code = 2201) 4.6 G/DL CALC GLOBULIN (test code = 3.3 G/DL 2240) CALC A/G RATIO (test code = 1.4 RATIO 4) BILIRUBIN, TOTAL (test code = 0.3 MG/DL 2206) ALKALINE PHOSPHATASE (test 79 U/L code = 2204) AST (test code = 2218) 48 U/L ALT (test code = 2219) 48 U/L VITAMIN [id number] 00:00:00 Test Item Value Reference Range Interpretation Comments VITAMIN B-12 (test code = 2840) 647 PG/ML VITAMIN [id number] 00:00:00 Test Item Value Reference Range Interpretation Comments VITAMIN B-12 (test code = 2840) 647 PG/ML VITAMIN [id number] 00:00:00 Test Item Value Reference Range Interpretation Comments VITAMIN B-12 (test code = 2840) 647 PG/ML VITAMIN D, 25 [id number] 00:00:00 Test Item Value Reference Range Interpretation Comments VITAMIN D, 25 OH (test code = 4958) 18 NG/ML VITAMIN D, 25 [id number] 00:00:00 Test Item Value Reference Range Interpretation Comments VITAMIN D, 25 OH (test code = 4958) 18 NG/ML CULTURE, [id number] 12:01:26SPECIMEN NUMBER: [id number] CULTURE, URINE SPECIMEN NUMBER: [id number] SPECIMEN COMMENT: URINE SOURCE:URINE REPORT STATUS: FINAL FINAL REPORT: 10/03/2021 10-50,000 CFU/ML MIXED UROGENITAL SOBEIDA UNLESS OT HERWISE INDICATED, ALL TESTING PERFORMED [facility] [address] [place] [phone] [employer] OPERATOR: LILLI VELAZQUEZ M.D. CLIA NUMBER [id number] [facility] [place]. [id number], [id number] 00:00:00 Test Item Value Reference Range Interpretation Comments CULTURE, URINE (test SPECIMEN NUMBER: code = 64343) [id number] CULTURE, [id number] 00:00:00 Test Item Value Reference Range Interpretation Comments CULTURE, URINE (test SPECIMEN NUMBER: code = 20227) [id number] CULTURE, [id number] 00:00:00 Test Item Value Reference Range Interpretation Comments CULTURE, URINE (test SPECIMEN NUMBER: code = 27472) [id number] CULTURE, [id number] 00:00:00 Test Item Value Reference Range Interpretation Comments CULTURE, URINE (test SPECIMEN NUMBER: code = 95596) [id number] CULTURE, [id number] 00:00:00 Test Item Value Reference Range Interpretation Comments CULTURE, URINE (test SPECIMEN NUMBER: code = 62100) [id number] CULTURE, [id number] 00:00:00 Test Item Value Reference Range Interpretation Comments CULTURE, URINE (test SPECIMEN NUMBER: code = 07848) [id number] CULTURE, [id number] 00:00:00 Test Item Value Reference Range Interpretation Comments CULTURE, URINE (test SPECIMEN NUMBER: code = 30431) [id number] TSH, THIRD [id number] 06:16:09 Test Item Value Reference Range Interpretation Comments TSH, THIRD <0.010 UIU/ML 0.400-4.100 L UNLESS OTHERW ISE GENERATION (test INDICATED, ALL code = 2821) TESTING PERFORM ED ATCLINICAL PATH OLOGY LABORATORIES, I [place]. [address] [place] [address] [facility] DIRECTOR: LILLI VELAZQUEZ M.D. [place] NUMBER [id number] CAP ACCREDITATION N O. [id number] HEMOGLOBIN [id number] 05:23:24 Test Item Value Reference Range Interpretation Comments HEMOGLOBIN A1c (test 6.7 % 4.2-5.6 H [employer] AN DIABETES code = 13532) ASSOCIATION IDELINES FOR HGB A1C: PREDIABETES/INC REASED [...] TESTING OR LABORATORY C ONSULTATION. COMPREHENSIVE METABOLIC [id number] 04:45:06 Test Item Value Reference Range Interpretation Comments GLUCOSE (test code = 266 MG/DL 70-99 H 2216) BUN (test code = 17 MG/DL 8-23 2207) CREATININE (test 0.92 MG/DL 0.60-1.30 code = 2214) eGFR (2020 CKD-EPI) 70 ML/MIN/1.73 >60 (test code = 90350) CALC BUN/CREAT (test 18 RATIO 6-28 code = 2235) SODIUM (test code = 136 MEQ/L 813-319 1281) POTASSIUM (test code 5.3 MEQ/L 3.5-5.4 = 2227) CHLORIDE (test code 98 MEQ/L 95-107 = 221) CARBON DIOXIDE (test 22 MEQ/L 19-31 code [...] code = 29 U/L 5-40 2218) HEMOGLOBIN [id number] 00:00:00 Test Item Value Reference Range Interpretation Comments HEMOGLOBIN A1c (test code = 33003) 6.7 % HEMOGLOBIN [id number] 00:00:00 Test Item Value Reference Range Interpretation Comments HEMOGLOBIN A1c (test code = 15417) 6.7 % HEMOGLOBIN [id number] 00:00:00 Test Item Value Reference Range Interpretation Comments HEMOGLOBIN A1c (test code = 50446) 6.7 % COMPREHENSIVE METABOLIC [id number] 00:00:00 Test Item Value Reference Range Interpretation Comments GLUCOSE (test code = 2216) 266 MG/DL BUN (test code = 8) 17 MG/DL CREATININE (test code = 2214) 0.92 MG/DL eGFR (2020 CKD-EPI) (test code 70 ML/MIN/1.73 = 89041) CALC BUN/CREAT (test code = 18 RATIO [...] code = 2219) 29 U/L COMPREHENSIVE METABOLIC [id number] 00:00:00 Test Item Value Reference Range Interpretation Comments GLUCOSE (test code = 2217) 266 MG/DL BUN (test code = 2208) 17 MG/DL CREATININE (test code = 2214) 0.92 MG/DL eGFR (2020 CKD-EPI) (test code 70 ML/MIN/1.73 = 51690) CALC BUN/CREAT (test code = 18 RATIO [...] ALT (test code = 2219) 29 U/L [id number] 00:00:00 Test Item Value Reference Range Interpretation Comments TSH, THIRD GENERATION (test <0.010 UIU/ML code = 2821) [id number] 00:00:00 Test Item Value Reference Range Interpretation Comments TSH, THIRD GENERATION (test <0.010 UIU/ML code = 2821) [id number] 00:00:00 Test Item Value Reference Range Interpretation Comments TSH, THIRD GENERATION (test <0.010 UIU/ML code = 2821) HEMOGLOBIN [id number] 00:00:00 Test Item Value Reference Range Interpretation Comments HEMOGLOBIN A1c (test code = 87736) 6.7 % HEMOGLOBIN [id number] 00:00:00 Test Item Value Reference Range Interpretation Comments HEMOGLOBIN A1c (test code = 66945) 6.7 % HEMOGLOBIN [id number] 00:00:00 Test Item Value Reference Range Interpretation Comments HEMOGLOBIN A1c (test code = 34535) 6.7 % COMPREHENSIVE METABOLIC [id number] 00:00:00 Test Item Value Reference Range Interpretation Comments GLUCOSE (test code = 2217) 266 MG/DL BUN (test code = 2208) 17 MG/DL CREATININE (test code = 2214) 0.92 MG/DL eGFR (2020 CKD-EPI) (test code 70 ML/MIN/1.73 = 92133) CALC BUN/CREAT (test code = 18 RATIO [...] CALC GLOBULIN (test code = 3.3 G/DL 224) CALC A/G RATIO (test code = 1.2 RATIO 2234) BILIRUBIN, TOTAL (test code = 0.3 MG/DL 2206) ALKALINE PHOSPHATASE (test 88 U/L code = 2204) AST (test code = 2218) 32 U/L ALT (test code = 2219) 29 U/L COMPREHENSIVE METABOLIC [id number] 00:00:00 Test Item Value Reference Range Interpretation Comments GLUCOSE (test code = 2217) 266 MG/DL BUN (test code = 2208) 17 MG/DL CREATININE (test code = 2214) 0.92 MG/DL eGFR (2020 CKD-EPI) (test code 70 ML/MIN/1.73 = 93913) CALC BUN/CREAT (test code = 18 RATIO [...] ALT (test code = 2219) 29 U/L [id number] 00:00:00 Test Item Value Reference Range Interpretation Comments TSH, THIRD GENERATION (test <0.010 UIU/ML code = 2821) [id number] 00:00:00 Test Item Value Reference Range Interpretation Comments TSH, THIRD GENERATION (test <0.010 UIU/ML code = 2821) [id number] 00:00:00 Test Item Value Reference Range Interpretation Comments TSH, THIRD GENERATION (test <0.010 UIU/ML code = 2821) HEMOGLOBIN [id number] 00:00:00 Test Item Value Reference Range Interpretation Comments HEMOGLOBIN A1c (test code = 83778) 6.7 % HEMOGLOBIN [id number] 00:00:00 Test Item Value Reference Range Interpretation Comments HEMOGLOBIN A1c (test code = 77505) 6.7 % COMPREHENSIVE METABOLIC [id number] 00:00:00 Test Item Value Reference Range Interpretation Comments GLUCOSE (test code = 2217) 266 MG/DL BUN (test code = 2208) 17 MG/DL CREATININE (test code = 2214) 0.92 MG/DL eGFR (2020 CKD-EPI) (test code 70 ML/MIN/1.73 = 39912) CALC BUN/CREAT (test code = 18 RATIO [...] ALT (test code = 2219) 29 U/L [id number] 00:00:00 Test Item Value Reference Range Interpretation Comments TSH, THIRD GENERATION (test <0.010 UIU/ML code = 2821) [id number] 00:00:00 Test Item Value Reference Range Interpretation Comments TSH, THIRD GENERATION (test <0.010 UIU/ML code = 2821) HEMOGLOBIN [id number] 00:00:00 Test Item Value Reference Range Interpretation Comments HEMOGLOBIN A1c (test code = 04064) 6.7 % HEMOGLOBIN [id number] 00:00:00 Test Item Value Reference Range Interpretation Comments HEMOGLOBIN A1c (test code = 42403) 6.7 % HEMOGLOBIN [id number] 00:00:00 Test Item Value Reference Range Interpretation Comments HEMOGLOBIN A1c (test code = 35320) 6.7 % COMPREHENSIVE METABOLIC [id number] 00:00:00 Test Item Value Reference Range Interpretation Comments GLUCOSE (test code = 2217) 266 MG/DL BUN (test code = 2208) 17 MG/DL CREATININE (test code = 2214) 0.92 MG/DL eGFR (2020 CKD-EPI) (test code 70 ML/MIN/1.73 = 57559) CALC BUN/CREAT (test code = 18 RATIO 5) SODIUM (test code = 2231) [...] code = 2219) 29 U/L COMPREHENSIVE METABOLIC [id number] 00:00:00 Test Item Value Reference Range Interpretation Comments GLUCOSE (test code = 2217) 266 MG/DL BUN (test code = 2208) 17 MG/DL CREATININE (test code = 2214) 0.92 MG/DL eGFR (2020 CKD-EPI) (test code 70 ML/MIN/1.73 = 06444) CALC BUN/CREAT (test code = 18 RATIO [...] ALKALINE PHOSPHATASE (test 88 U/L code = 220) AST (test code = 2218) 32 U/L ALT (test code = 2219) 29 U/L [id number] 00:00:00 Test Item Value Reference Range Interpretation Comments TSH, THIRD GENERATION (test <0.010 UIU/ML code = 2821) [id number] 00:00:00 Test Item Value Reference Range Interpretation Comments TSH, THIRD GENERATION (test <0.010 UIU/ML code = 2821) [id number] 00:00:00 Test Item Value Reference Range Interpretation Comments TSH, THIRD GENERATION (test <0.010 UIU/ML code = 2821) TSH, THIRD [id number] 06:18:54 Test Item Value Reference Range Interpretation Comments TSH, THIRD GENERATION (test code 0.190 UIU/ML 0.400-4.100 L = 2821) HEMOGLOBIN [id number] 03:11:56 Test Item Value Reference Range Interpretation Comments HEMOGLOBIN A1c (test 8.4 % 4.2-5.6 H AMERIC AN DIABETES code = 93642) ASSOCIATION IDELINES FOR HGB A1C: PREDIABETES/INC REASED [...] TESTING OR LABORATORY C ONSULTATION. COMPREHENSIVE METABOLIC [id number] 03:11:06 Test Item Value Reference Range Interpretation Comments GLUCOSE (test code = 141 MG/DL 70-99 H 2216) BUN (test code = 31 MG/DL 8-23 H 2207) CREATININE (test 1.07 MG/DL 0.60-1.30 code = 2214) eGFR (2020 CKD-EPI) 59 ML/MIN/1.73 >60 L (test code = 39176) CALC BUN/CREAT (test 29 RATIO 6-28 H code = 2235) SODIUM (test code = 141 MEQ/L 524-076 2445) POTASSIUM (test code 4.7 MEQ/L 3.5-5.4 = 2227) CHLORIDE (test code 99 MEQ/L 95-107 = 2214) CARBON DIOXIDE (test 26 MEQ/L 19-31 code = 220) CALCIUM (test code = 8.8 MG/DL 8.5-10.5 2208) PROTEIN, TOTAL (test 8.0 G/DL 6.1-8.3 code = 222) ALBUMIN (test code = 4.5 G/DL 3.5-5.2 [...] = 41 U/L 5-40 H 2218) LIPID [id number] 03:11:06 Test Item Value Reference Range Interpretation [...] MOREINFORMATION , SEE CLIENT ANNOUNCE MENT AT [email or web address] RISK RATIO LDL/HDL 1.28 RATIO <3.22 (test code = 2238) IRON, [id number] 03:11:06 Test Item Value Reference Range Interpretation Comments IRON, SERUM (test 59 UG/DL 37-145 UNLESS OT HERWISE code = 2222) INDICATED, ALL TESTING PERFORMED ATCLI NICAL PATHOLOGY [email or web address]. [address] [place] [address] [employer] DIRECTOR: LILLI VELAZQUEZ M.D. CLIA NUMBER [id number] CAP ACCREDITATION N O. [id number] HEMOGLOBIN [id number] 00:00:00 Test Item Value Reference Range Interpretation Comments HEMOGLOBIN A1c (test code = 68797) 8.4 % HEMOGLOBIN [id number] 00:00:00 Test Item Value Reference Range Interpretation Comments HEMOGLOBIN A1c (test code = 32780) 8.4 % HEMOGLOBIN [id number] 00:00:00 Test Item Value Reference Range Interpretation Comments HEMOGLOBIN A1c (test code = 86590) 8.4 % COMPREHENSIVE METABOLIC [id number] 00:00:00 Test Item Value Reference Range Interpretation Comments GLUCOSE (test code = 2217) 141 MG/DL BUN (test code = 2208) 31 MG/DL CREATININE (test code = 2214) 1.07 MG/DL eGFR (2020 CKD-EPI) (test code 59 ML/MIN/1.73 = 58009) CALC BUN/CREAT (test code = 29 RATIO [...] code = 2219) 41 U/L COMPREHENSIVE METABOLIC [id number] 00:00:00 Test Item Value Reference Range Interpretation Comments GLUCOSE (test code = 2217) 141 MG/DL BUN (test code = 2208) 31 MG/DL CREATININE (test code = 2214) 1.07 MG/DL eGFR (2020 CKD-EPI) (test code 59 ML/MIN/1.73 = 23118) CALC BUN/CREAT (test code = 29 RATIO [...] (test code = 2219) 41 U/L LIPID [id number] 00:00:00 Test Item Value Reference Range Interpretation Comments CHOLESTEROL (test code = 2210) 113 MG/DL TRIGLYCERIDES (test code = 2232) 165 MG/DL HDL CHOLESTEROL (test code = 2220) 39 MG/DL CALC LDL CHOL (test code = 2237) 50 MG/DL RISK RATIO LDL/HDL (test code = 1.28 RATIO 2238) LIPID [id number] 00:00:00 Test Item Value Reference Range Interpretation Comments CHOLESTEROL (test code = 2210) 113 MG/DL TRIGLYCERIDES (test code = 2232) 165 MG/DL HDL CHOLESTEROL (test code = 2220) 39 MG/DL CALC LDL CHOL (test code = 2237) 50 MG/DL RISK RATIO LDL/HDL (test code = 1.28 RATIO 2238) [id number] 00:00:00 Test Item Value Reference Range Interpretation Comments TSH, THIRD GENERATION (test code 0.190 UIU/ML = 2821) [id number] 00:00:00 Test Item Value Reference Range Interpretation Comments TSH, THIRD GENERATION (test code 0.190 UIU/ML = 2821) [id number] 00:00:00 Test Item Value Reference Range Interpretation Comments TSH, THIRD GENERATION (test code 0.190 UIU/ML = 2821) IRON, [id number] 00:00:00 Test Item Value Reference Range Interpretation Comments IRON, SERUM (test code = 2222) 59 UG/DL IRON, [id number] 00:00:00 Test Item Value Reference Range Interpretation Comments IRON, SERUM (test code = 2222) 59 UG/DL HEMOGLOBIN [id number] 00:00:00 Test Item Value Reference Range Interpretation Comments HEMOGLOBIN A1c (test code = 69615) 8.4 % HEMOGLOBIN [id number] 00:00:00 Test Item Value Reference Range Interpretation Comments HEMOGLOBIN A1c (test code = 87952) 8.4 % HEMOGLOBIN [id number] 00:00:00 Test Item Value Reference Range Interpretation Comments HEMOGLOBIN A1c (test code = 69889) 8.4 % HEMOGLOBIN [id number] 00:00:00 Test Item Value Reference Range Interpretation Comments HEMOGLOBIN A1c (test code = 52948) 8.4 % COMPREHENSIVE METABOLIC [id number] 00:00:00 Test Item Value Reference Range Interpretation Comments GLUCOSE (test code = 2217) 141 MG/DL BUN (test code = 2208) 31 MG/DL CREATININE (test code = 2214) 1.07 MG/DL eGFR (2020 CKD-EPI) (test code 59 ML/MIN/1.73 = 70807) CALC BUN/CREAT (test code = 29 RATIO [...] code = 2219) 41 U/L COMPREHENSIVE METABOLIC [id number] 00:00:00 Test Item Value Reference Range Interpretation Comments GLUCOSE (test code = 2216) 141 MG/DL BUN (test code = 2208) 31 MG/DL CREATININE (test code = 2214) 1.07 MG/DL eGFR (2020 CKD-EPI) (test code 59 ML/MIN/1.73 = 60985) CALC BUN/CREAT (test code = 29 RATIO [...] ALT (test code = 2219) 41 U/L HEMOGLOBIN [id number] 00:00:00 Test Item Value Reference Range Interpretation Comments HEMOGLOBIN A1c (test code = 49102) 8.4 % LIPID [id number] 00:00:00 Test Item Value Reference Range Interpretation Comments CHOLESTEROL (test code = 2210) 113 MG/DL TRIGLYCERIDES (test code = 2232) 165 MG/DL HDL CHOLESTEROL (test code = 2220) 39 MG/DL CALC LDL CHOL (test code = 2237) 50 MG/DL RISK RATIO LDL/HDL (test code = 1.28 RATIO 2238) LIPID [id number] 00:00:00 Test Item Value Reference Range Interpretation Comments CHOLESTEROL (test code = 2210) 113 MG/DL TRIGLYCERIDES (test code = 2232) 165 MG/DL HDL CHOLESTEROL (test code = 2220) 39 MG/DL CALC LDL CHOL (test code = 2237) 50 MG/DL RISK RATIO LDL/HDL (test code = 1.28 RATIO 2238) COMPREHENSIVE METABOLIC [id number] 00:00:00 Test Item Value Reference Range Interpretation Comments GLUCOSE (test code = 2217) 141 MG/DL BUN (test code = 2208) 31 MG/DL CREATININE (test code = 2214) 1.07 MG/DL eGFR (2020 CKD-EPI) (test code 59 ML/MIN/1.73 = 48169) CALC BUN/CREAT (test code = 29 RATIO [...] ALT (test code = 2219) 41 U/L [id number] 00:00:00 Test Item Value Reference Range Interpretation Comments TSH, THIRD GENERATION (test code 0.190 UIU/ML = 2821) [id number] 00:00:00 Test Item Value Reference Range Interpretation Comments TSH, THIRD GENERATION (test code 0.190 UIU/ML = 2821) [id number] 00:00:00 Test Item Value Reference Range Interpretation Comments TSH, THIRD GENERATION (test code 0.190 UIU/ML = 2821) IRON, [id number] 00:00:00 Test Item Value Reference Range Interpretation Comments IRON, SERUM (test code = 2222) 59 UG/DL IRON, [id number] 00:00:00 Test Item Value Reference Range Interpretation Comments IRON, SERUM (test code = 2222) 59 UG/DL LIPID [id number] 00:00:00 Test Item Value Reference Range Interpretation Comments CHOLESTEROL (test code = 2210) 113 MG/DL TRIGLYCERIDES (test code = 2232) 165 MG/DL HDL CHOLESTEROL (test code = 2220) 39 MG/DL CALC LDL CHOL (test code = 2237) 50 MG/DL RISK RATIO LDL/HDL (test code = 1.28 RATIO 8) [id number] 00:00:00 Test Item Value Reference Range Interpretation Comments TSH, THIRD GENERATION (test code 0.190 UIU/ML = 2821) [id number] 00:00:00 Test Item Value Reference Range Interpretation Comments TSH, THIRD GENERATION (test code 0.190 UIU/ML = 2821) IRON, [id number] 00:00:00 Test Item Value Reference Range Interpretation Comments IRON, SERUM (test code = 2222) 59 UG/DL HEMOGLOBIN [id number] 00:00:00 Test Item Value Reference Range Interpretation Comments HEMOGLOBIN A1c (test code = 07490) 8.4 % HEMOGLOBIN [id number] 00:00:00 Test Item Value Reference Range Interpretation Comments HEMOGLOBIN A1c (test code = 80309) 8.4 % COMPREHENSIVE METABOLIC [id number] 00:00:00 Test Item Value Reference Range Interpretation Comments GLUCOSE (test code = 2217) 141 MG/DL BUN (test code = 2208) 31 MG/DL CREATININE (test code = 2214) 1.07 MG/DL eGFR (2020 CKD-EPI) (test code 59 ML/MIN/1.73 = 93013) CALC BUN/CREAT (test code = 29 RATIO [...] (test code = 2219) 41 U/L LIPID [id number] 00:00:00 Test Item Value Reference Range Interpretation Comments CHOLESTEROL (test code = 2210) 113 MG/DL TRIGLYCERIDES (test code = 2232) 165 MG/DL HDL CHOLESTEROL (test code = 2220) 39 MG/DL CALC LDL CHOL (test code = 223) 50 MG/DL RISK RATIO LDL/HDL (test code = 1.28 RATIO 2238) [id number] 00:00:00 Test Item Value Reference Range Interpretation Comments TSH, THIRD GENERATION (test code 0.190 UIU/ML = 2821) [id number] 00:00:00 Test Item Value Reference Range Interpretation Comments TSH, THIRD GENERATION (test code 0.190 UIU/ML = 2821) IRON, [id number] 00:00:00 Test Item Value Reference Range Interpretation Comments IRON, SERUM (test code = 2222) 59 UG/DL HEMOGLOBIN [id number] 00:00:00 Test Item Value Reference Range Interpretation Comments HEMOGLOBIN A1c (test code = 11082) 8.4 % HEMOGLOBIN [id number] 00:00:00 Test Item Value Reference Range Interpretation Comments HEMOGLOBIN A1c (test code = 15419) 8.4 % HEMOGLOBIN [id number] 00:00:00 Test Item Value Reference Range Interpretation Comments HEMOGLOBIN A1c (test code = 25550) 8.4 % COMPREHENSIVE METABOLIC [id number] 00:00:00 Test Item Value Reference Range Interpretation Comments GLUCOSE (test code = 7) 141 MG/DL BUN (test code = 2208) 31 MG/DL CREATININE (test code = 2214) 1.07 MG/DL eGFR (2020 CKD-EPI) (test code 59 ML/MIN/1.73 = 25258) CALC BUN/CREAT (test code = 29 RATIO [...] code = 2219) 41 U/L COMPREHENSIVE METABOLIC [id number] 00:00:00 Test Item Value Reference Range Interpretation Comments GLUCOSE (test code = 2217) 141 MG/DL BUN (test code = 2208) 31 MG/DL CREATININE (test code = 2214) 1.07 MG/DL eGFR (2020 CKD-EPI) (test code 59 ML/MIN/1.73 = 05291) CALC BUN/CREAT (test code = 29 RATIO [...] (test code = 2219) 41 U/L LIPID [id number] 00:00:00 Test Item Value Reference Range Interpretation Comments CHOLESTEROL (test code = 2210) 113 MG/DL TRIGLYCERIDES (test code = 2232) 165 MG/DL HDL CHOLESTEROL (test code = 2220) 39 MG/DL CALC LDL CHOL (test code = 2237) 50 MG/DL RISK RATIO LDL/HDL (test code = 1.28 RATIO 2238) LIPID [id number] 00:00:00 Test Item Value Reference Range Interpretation Comments CHOLESTEROL (test code = 2210) 113 MG/DL TRIGLYCERIDES (test code = 2232) 165 MG/DL HDL CHOLESTEROL (test code = 2220) 39 MG/DL CALC LDL CHOL (test code = 2237) 50 MG/DL RISK RATIO LDL/HDL (test code = 1.28 RATIO 2238) [id number] 00:00:00 Test Item Value Reference Range Interpretation Comments TSH, THIRD GENERATION (test code 0.190 UIU/ML = 2821) [id number] 00:00:00 Test Item Value Reference Range Interpretation Comments TSH, THIRD GENERATION (test code 0.190 UIU/ML = 2821) [id number] 00:00:00 Test Item Value Reference Range Interpretation Comments TSH, THIRD GENERATION (test code 0.190 UIU/ML = 2821) IRON, [id number] 00:00:00 Test Item Value Reference Range Interpretation Comments IRON, SERUM (test code = 2222) 59 UG/DL IRON, [id number] 00:00:00 Test Item Value Reference Range Interpretation Comments IRON, SERUM (test code = 2222) 59 UG/DL ALBUMIN/CREATININE RATIO, URINE, [id number] 05:57:19 Test Item Value Reference Range Interpretation Comments CREATININE, URINE, 212.0 MG/DL NOT ESTAB CONC. (test code = 2072) ALBUMIN, URINE, 16.0 MG/DL Note: Test name is RANDOM (test code changed to Urine Albumin = 31938) from [employer] in in accordance with ADA and NKF Guidelines, and Albumin/Creatin ine ratio reference inter jamshid reflects those Guidelines. Jameel lytic methodology is unchanged. No r eference interval for Ra ndom Urine Albumin i s available. CALC 75 MG/G <30 H UNLESS OTHERWI SE ALBUMIN/CREAT, RND INDICATED , ALL TESTING (test code = PERFORMED ATCLI NICAL 67962) PATHOLOGY LABOR [employer] [address] [facility], [place] [address] LABORATORY DIRE CTOR: LILLI SIERRA M.D. CLIA NUMBER [id number] [facility] [id number] HEMOGLOBIN [id number] 04:12:15 Test Item Value Reference Range Interpretation Comments HEMOGLOBIN A1c (test 9.1 % 4.2-5.6 H AMERIC AN DIABETES code = 62045) ASSOCIATION IDELINES FOR HGB A1C: PREDIABETES/INC REASED [...] ATE TESTING OR LABORATORY C ONSULTATION. HEMOGLOBIN [id number] 00:00:00 Test Item Value Reference Range Interpretation Comments HEMOGLOBIN A1c (test code = 34102) 9.1 % HEMOGLOBIN [id number] 00:00:00 Test Item Value Reference Range Interpretation Comments HEMOGLOBIN A1c (test code = 13105) 9.1 % HEMOGLOBIN [id number] 00:00:00 Test Item Value Reference Range Interpretation Comments HEMOGLOBIN A1c (test code = 78743) 9.1 % MICROALBUMIN/CREATININE, RANDOM AND [id number] 00:00:00 Test Item Value Reference Range Interpretation Comments CREATININE, URINE, CONC. (test 212.0 MG/DL code = 2072) ALBUMIN, URINE, RANDOM (test code 16.0 MG/DL = 81349) CALC ALBUMIN/CREAT, RND (test 75 MG/G code = 60936) MICROALBUMIN/CREATININE, RANDOM AND [id number] 00:00:00 Test Item Value Reference Range Interpretation Comments CREATININE, URINE, CONC. (test 212.0 MG/DL code = 2072) ALBUMIN, URINE, RANDOM (test code 16.0 MG/DL = 57031) CALC ALBUMIN/CREAT, RND (test 75 MG/G code = 56819) HEMOGLOBIN [id number] 00:00:00 Test Item Value Reference Range Interpretation Comments HEMOGLOBIN A1c (test code = 03056) 9.1 % HEMOGLOBIN [id number] 00:00:00 Test Item Value Reference Range Interpretation Comments HEMOGLOBIN A1c (test code = 03815) 9.1 % HEMOGLOBIN [id number] 00:00:00 Test Item Value Reference Range Interpretation Comments HEMOGLOBIN A1c (test code = 81337) 9.1 % HEMOGLOBIN [id number] 00:00:00 Test Item Value Reference Range Interpretation Comments HEMOGLOBIN A1c (test code = 87042) 9.1 % HEMOGLOBIN [id number] 00:00:00 Test Item Value Reference Range Interpretation Comments HEMOGLOBIN A1c (test code = 25550) 9.1 % MICROALBUMIN/CREATININE, RANDOM AND [id number] 00:00:00 Test Item Value Reference Range Interpretation Comments CREATININE, URINE, CONC. (test 212.0 MG/DL code = 2072) ALBUMIN, URINE, RANDOM (test code 16.0 MG/DL = 13332) CALC ALBUMIN/CREAT, RND (test 75 MG/G code = 20164) MICROALBUMIN/CREATININE, RANDOM AND [id number] 00:00:00 Test Item Value Reference Range Interpretation Comments CREATININE, URINE, CONC. (test 212.0 MG/DL code = 2072) ALBUMIN, URINE, RANDOM (test code 16.0 MG/DL = 91995) CALC ALBUMIN/CREAT, RND (test 75 MG/G code = 80737) MICROALBUMIN/CREATININE, RANDOM AND [id number] 00:00:00 Test Item Value Reference Range Interpretation Comments CREATININE, URINE, CONC. (test 212.0 MG/DL code = 2072) ALBUMIN, URINE, RANDOM (test code 16.0 MG/DL = 32522) CALC ALBUMIN/CREAT, RND (test 75 MG/G code = 14300) HEMOGLOBIN [id number] 00:00:00 Test Item Value Reference Range Interpretation Comments HEMOGLOBIN A1c (test code = 17918) 9.1 % HEMOGLOBIN [id number] 00:00:00 Test Item Value Reference Range Interpretation Comments HEMOGLOBIN A1c (test code = 89140) 9.1 % MICROALBUMIN/CREATININE, RANDOM AND [id number] 00:00:00 Test Item Value Reference Range Interpretation Comments CREATININE, URINE, CONC. (test 212.0 MG/DL code = 2072) ALBUMIN, URINE, RANDOM (test code 16.0 MG/DL = 73638) CALC ALBUMIN/CREAT, RND (test 75 MG/G code = 44064) HEMOGLOBIN [id number] 00:00:00 Test Item Value Reference Range Interpretation Comments HEMOGLOBIN A1c (test code = 75462) 9.1 % HEMOGLOBIN [id number] 00:00:00 Test Item Value Reference Range Interpretation Comments HEMOGLOBIN A1c (test code = 69080) 9.1 % HEMOGLOBIN [id number] 00:00:00 Test Item Value Reference Range Interpretation Comments HEMOGLOBIN A1c (test code = 38392) 9.1 % MICROALBUMIN/CREATININE, RANDOM AND [id number] 00:00:00 Test Item Value Reference Range Interpretation Comments CREATININE, URINE, CONC. (test 212.0 MG/DL code = 2072) ALBUMIN, URINE, RANDOM (test code 16.0 MG/DL = 98751) CALC ALBUMIN/CREAT, RND (test 75 MG/G code = 96961) MICROALBUMIN/CREATININE, RANDOM AND [id number] 00:00:00 Test Item Value Reference Range Interpretation Comments CREATININE, URINE, CONC. (test 212.0 MG/DL code = 2072) ALBUMIN, URINE, RANDOM (test code 16.0 MG/DL = 91444) CALC ALBUMIN/CREAT, RND (test 75 MG/G code = 80558) PATHOLOGIST SMEAR [id number] 00:00:00 Test Item Value Reference Range Interpretation Comments DIAGNOSIS: (test code = 8200) (NOTE) COMMENTS: (test code = 8205) (NOTE) MICROSCOPIC DESCRIPTION: (test (NOTE) code = 8210) PATHOLOGIST: (test code = 8250) (NOTE) CPT: (test code = 8400) 97341 WBC (test code = 1001) 2.7 K/UL [...] NUCLEATED RBCS (test code = 0.00 K/UL 51551) COMMENTS (test code = 1016) (NOTE) PATHOLOGIST SMEAR [id number] 00:00:00 Test Item Value Reference Range Interpretation Comments DIAGNOSIS: (test code = 8200) (NOTE) COMMENTS: (test code = 8205) (NOTE) MICROSCOPIC DESCRIPTION: (test (NOTE) code = 8210) PATHOLOGIST: (test code = 8250) (NOTE) CPT: (test code = 8400) 47396 WBC (test code = 1001) 2.7 K/UL [...] NUCLEATED RBCS (test code = 0.00 K/UL 67033) COMMENTS (test code = 1016) (NOTE) PATHOLOGIST SMEAR [id number] 00:00:00 Test Item Value Reference Range Interpretation Comments DIAGNOSIS: (test code = 8200) (NOTE) COMMENTS: (test code = 8205) (NOTE) MICROSCOPIC DESCRIPTION: (test (NOTE) code = 8210) PATHOLOGIST: (test code = 8250) (NOTE) CPT: (test code = 8400) 54104 WBC (test code = 1001) 2.7 K/UL [...] NUCLEATED RBCS (test code = 0.00 K/UL 46517) COMMENTS (test code = 1016) (NOTE) PATHOLOGIST SMEAR [id number] 00:00:00 Test Item Value Reference Range Interpretation Comments DIAGNOSIS: (test code = 8200) (NOTE) COMMENTS: (test code = 8205) (NOTE) MICROSCOPIC DESCRIPTION: (test (NOTE) code = 8210) PATHOLOGIST: (test code = 8250) (NOTE) CPT: (test code = 8400) 05781 WBC (test code = 1001) 2.7 K/UL [...] NUCLEATED RBCS (test code = 0.00 K/UL 54351) COMMENTS (test code = 1016) (NOTE) PATHOLOGIST SMEAR [id number] 00:00:00 Test Item Value Reference Range Interpretation Comments DIAGNOSIS: (test code = 8200) (NOTE) COMMENTS: (test code = 8205) (NOTE) MICROSCOPIC DESCRIPTION: (test (NOTE) code = 8210) PATHOLOGIST: (test code = 8250) (NOTE) CPT: (test code = 8400) 01788 WBC (test code = 1001) 2.7 K/UL [...] NUCLEATED RBCS (test code = 0.00 K/UL 16101) COMMENTS (test code = 1016) (NOTE) PATHOLOGIST SMEAR [id number] 00:00:00 Test Item Value Reference Range Interpretation Comments DIAGNOSIS: (test code = 8200) (NOTE) COMMENTS: (test code = 8205) (NOTE) MICROSCOPIC DESCRIPTION: (test (NOTE) code = 8210) PATHOLOGIST: (test code = 8250) (NOTE) CPT: (test code = 8400) 13519 WBC (test code = 1001) 2.7 K/UL [...] NUCLEATED RBCS (test code = 0.00 K/UL 04514) COMMENTS (test code = 1016) (NOTE) PATHOLOGIST SMEAR [id number] 00:00:00 Test Item Value Reference Range Interpretation Comments DIAGNOSIS: (test code = 8200) (NOTE) COMMENTS: (test code = 8205) (NOTE) MICROSCOPIC DESCRIPTION: (test (NOTE) code = 8210) PATHOLOGIST: (test code = 8250) (NOTE) CPT: (test code = 8400) 77911 WBC (test code = 1001) 2.7 K/UL [...] NUCLEATED RBCS (test code = 0.00 K/UL 97114) COMMENTS (test code = 1016) (NOTE) PATHOLOGIST SMEAR [id number] 00:00:00 Test Item Value Reference Range Interpretation Comments DIAGNOSIS: (test code = 8200) (NOTE) COMMENTS: (test code = 8205) (NOTE) MICROSCOPIC DESCRIPTION: (test (NOTE) code = 8210) PATHOLOGIST: (test code = 8250) (NOTE) CPT: (test code = 8400) 95869 WBC (test code = 1001) 2.7 K/UL [...] NUCLEATED RBCS (test code = 0.00 K/UL 73149) COMMENTS (test code = 1016) (NOTE) [id number] 00:00:00 Test Item Value Reference Range Interpretation Comments FERRITIN (test code = 5) 42 NG/ML [id number] 00:00:00 Test Item Value Reference Range Interpretation Comments FERRITIN (test code = 5) 42 NG/ML [id number] 00:00:00 Test Item Value Reference Range Interpretation Comments TRANSFERRIN (test code = 4936) 281 MG/DL [id number] 00:00:00 Test Item Value Reference Range Interpretation Comments TRANSFERRIN (test code = 4936) 281 MG/DL IRON BINDING CAPACITY AND IRON AND % [id number] 00:00:00 Test Item Value Reference Range Interpretation Comments IRON, SERUM (test code = 2222) 28 UG/DL UNSATURATED IBC (test code = 52794) 315 UG/DL CALC TOTAL IBC (test code = 2076) 343 UG/DL CALC % IRON SAT (test code = 2078) 8 % IRON BINDING CAPACITY AND IRON AND % [id number] 00:00:00 Test Item Value Reference Range Interpretation Comments IRON, SERUM (test code = 2222) 28 UG/DL UNSATURATED IBC (test code = 84883) 315 UG/DL CALC TOTAL IBC (test code = 2076) 343 UG/DL CALC % IRON SAT (test code = 2078) 8 % PROTIME AND [id number] 00:00:00 Test Item Value Reference Range Interpretation Comments PROTHROMBIN TIME (PT) (test code 14.8 SECONDS = 1402) INR (test code = 87233) 1.1 PTT (test code = 1403) 35.8 SECONDS PROTIME AND [id number] 00:00:00 Test Item Value Reference Range Interpretation Comments PROTHROMBIN TIME (PT) (test code 14.8 SECONDS = 1402) INR (test code = 51093) 1.1 PTT (test code = 1403) 35.8 SECONDS RHEUMATOID FACTOR, [id number] 00:00:00 Test Item Value Reference Range Interpretation Comments RHEUMATOID FACTOR, QUANT (test code <10 IU/ML = 3502) RHEUMATOID FACTOR, [id number] 00:00:00 Test Item Value Reference Range Interpretation Comments RHEUMATOID FACTOR, QUANT (test code <10 IU/ML = 3502) RHEUMATOID FACTOR, [id number] 00:00:00 Test Item Value Reference Range Interpretation Comments RHEUMATOID FACTOR, QUANT (test code <10 IU/ML = 3502) CCP [id number] 00:00:00 Test Item Value Reference Range Interpretation Comments CCP IgG (test code = 06350) <0.5 U/ML CCP [id number] 00:00:00 Test Item Value Reference Range Interpretation Comments CCP IgG (test code = 31388) <0.5 U/ML CCP [id number] 00:00:00 Test Item Value Reference Range Interpretation Comments CCP IgG (test code = 99799) <0.5 U/ML ASH (SM) [id number] 00:00:00 Test Item Value Reference Range Interpretation Comments ASH (Sm) ANTIBODY (test code = <0.2 AI 35158) ASH (SM) [id number] 00:00:00 Test Item Value Reference Range Interpretation Comments ASH (Sm) ANTIBODY (test code = <0.2 AI 23644) DNA DS [id number] 00:00:00 Test Item Value Reference Range Interpretation Comments dsDNA ANTIBODY (test code = 4287) 1.0 IU/ML DNA DS [id number] 00:00:00 Test Item Value Reference Range Interpretation Comments dsDNA ANTIBODY (test code = 4287) 1.0 IU/ML [id number] 00:00:00 Test Item Value Reference Range Interpretation Comments FERRITIN (test code = 2074) 42 NG/ML [id number] 00:00:00 Test Item Value Reference Range Interpretation Comments FERRITIN (test code = 2074) 42 NG/ML [id number] 00:00:00 Test Item Value Reference Range Interpretation Comments FERRITIN (test code = 2074) 42 NG/ML [id number] 00:00:00 Test Item Value Reference Range Interpretation Comments TRANSFERRIN (test code = 4936) 281 MG/DL [id number] 00:00:00 Test Item Value Reference Range Interpretation Comments TRANSFERRIN (test code = 4936) 281 MG/DL IRON BINDING CAPACITY AND IRON AND % [id number] 00:00:00 Test Item Value Reference Range Interpretation Comments IRON, SERUM (test code = 2) 28 UG/DL UNSATURATED IBC (test code = ) 315 UG/DL CALC TOTAL IBC (test code = 2076) 343 UG/DL CALC % IRON SAT (test code = 2078) 8 % IRON BINDING CAPACITY AND IRON AND % [id number] 00:00:00 Test Item Value Reference Range Interpretation Comments IRON, SERUM (test code = 2222) 28 UG/DL UNSATURATED IBC (test code = 73357) 315 UG/DL CALC TOTAL IBC (test code = 2076) 343 UG/DL CALC % IRON SAT (test code = 9) 8 % PROTIME AND [id number] 00:00:00 Test Item Value Reference Range Interpretation Comments PROTHROMBIN TIME (PT) (test code 14.8 SECONDS = 1402) INR (test code = 89655) 1.1 PTT (test code = 1403) 35.8 SECONDS PROTIME AND [id number] 00:00:00 Test Item Value Reference Range Interpretation Comments PROTHROMBIN TIME (PT) (test code 14.8 SECONDS = 1402) INR (test code = 65066) 1.1 PTT (test code = 1403) 35.8 SECONDS RHEUMATOID FACTOR, [id number] 00:00:00 Test Item Value Reference Range Interpretation Comments RHEUMATOID FACTOR, QUANT (test code <10 IU/ML = 3502) RHEUMATOID FACTOR, [id number] 00:00:00 Test Item Value Reference Range Interpretation Comments RHEUMATOID FACTOR, QUANT (test code <10 IU/ML = 3502) RHEUMATOID FACTOR, [id number] 00:00:00 Test Item Value Reference Range Interpretation Comments RHEUMATOID FACTOR, QUANT (test code <10 IU/ML = 3502) CCP [id number] 00:00:00 Test Item Value Reference Range Interpretation Comments CCP IgG (test code = 71089) <0.5 U/ML [id number] 00:00:00 Test Item Value Reference Range Interpretation Comments TRANSFERRIN (test code = 4936) 281 MG/DL CCP [id number] 00:00:00 Test Item Value Reference Range Interpretation Comments CCP IgG (test code = 80745) <0.5 U/ML CCP [id number] 00:00:00 Test Item Value Reference Range Interpretation Comments CCP IgG (test code = 53532) <0.5 U/ML ASH (SM) [id number] 00:00:00 Test Item Value Reference Range Interpretation Comments ASH (Sm) ANTIBODY (test code = <0.2 AI 49877) ASH (SM) [id number] 00:00:00 Test Item Value Reference Range Interpretation Comments ASH (Sm) ANTIBODY (test code = <0.2 AI 99135) DNA DS [id number] 00:00:00 Test Item Value Reference Range Interpretation Comments dsDNA ANTIBODY (test code = 4287) 1.0 IU/ML DNA DS [id number] 00:00:00 Test Item Value Reference Range Interpretation Comments dsDNA ANTIBODY (test code = 4287) 1.0 IU/ML IRON BINDING CAPACITY AND IRON AND % [id number] 00:00:00 Test Item Value Reference Range Interpretation Comments IRON, SERUM (test code = 2222) 28 UG/DL UNSATURATED IBC (test code = 50052) 315 UG/DL CALC TOTAL IBC (test code = 2076) 343 UG/DL CALC % IRON SAT (test code = 2079) 8 % PROTIME AND [id number] 00:00:00 Test Item Value Reference Range Interpretation Comments PROTHROMBIN TIME (PT) (test code 14.8 SECONDS = 1402) INR (test code = 26231) 1.1 PTT (test code = 1403) 35.8 SECONDS RHEUMATOID FACTOR, [id number] 00:00:00 Test Item Value Reference Range Interpretation Comments RHEUMATOID FACTOR, QUANT (test code <10 IU/ML = 3502) RHEUMATOID FACTOR, [id number] 00:00:00 Test Item Value Reference Range Interpretation Comments RHEUMATOID FACTOR, QUANT (test code <10 IU/ML = 3502) CCP [id number] 00:00:00 Test Item Value Reference Range Interpretation Comments CCP IgG (test code = 91175) <0.5 U/ML CCP [id number] 00:00:00 Test Item Value Reference Range Interpretation Comments CCP IgG (test code = 41541) <0.5 U/ML ASH (SM) [id number] 00:00:00 Test Item Value Reference Range Interpretation Comments ASH (Sm) ANTIBODY (test code = <0.2 AI 53216) DNA DS [id number] 00:00:00 Test Item Value Reference Range Interpretation Comments dsDNA ANTIBODY (test code = 4287) 1.0 IU/ML [id number] 00:00:00 Test Item Value Reference Range Interpretation Comments FERRITIN (test code = 2075) 42 NG/ML [id number] 00:00:00 Test Item Value Reference Range Interpretation Comments TRANSFERRIN (test code = 4936) 281 MG/DL IRON BINDING CAPACITY AND IRON AND % [id number] 00:00:00 Test Item Value Reference Range Interpretation Comments IRON, SERUM (test code = 2222) 28 UG/DL UNSATURATED IBC (test code = 56066) 315 UG/DL CALC TOTAL IBC (test code = 7) 343 UG/DL CALC % IRON SAT (test code = 207) 8 % PROTIME AND [id number] 00:00:00 Test Item Value Reference Range Interpretation Comments PROTHROMBIN TIME (PT) (test code 14.8 SECONDS = 1402) INR (test code = 28322) 1.1 PTT (test code = 1403) 35.8 SECONDS RHEUMATOID FACTOR, [id number] 00:00:00 Test Item Value Reference Range Interpretation Comments RHEUMATOID FACTOR, QUANT (test code <10 IU/ML = 3502) RHEUMATOID FACTOR, [id number] 00:00:00 Test Item Value Reference Range Interpretation Comments RHEUMATOID FACTOR, QUANT (test code <10 IU/ML = 3502) CCP [id number] 00:00:00 Test Item Value Reference Range Interpretation Comments CCP IgG (test code = 54712) <0.5 U/ML CCP [id number] 00:00:00 Test Item Value Reference Range Interpretation Comments CCP IgG (test code = 22204) <0.5 U/ML ASH (SM) [id number] 00:00:00 Test Item Value Reference Range Interpretation Comments ASH (Sm) ANTIBODY (test code = <0.2 AI 87706) DNA DS [id number] 00:00:00 Test Item Value Reference Range Interpretation Comments dsDNA ANTIBODY (test code = 4287) 1.0 IU/ML [id number] 00:00:00 Test Item Value Reference Range Interpretation Comments FERRITIN (test code = 2074) 42 NG/ML [id number] 00:00:00 Test Item Value Reference Range Interpretation Comments FERRITIN (test code = 2074) 42 NG/ML [id number] 00:00:00 Test Item Value Reference Range Interpretation Comments TRANSFERRIN (test code = 4936) 281 MG/DL [id number] 00:00:00 Test Item Value Reference Range Interpretation Comments TRANSFERRIN (test code = 4936) 281 MG/DL IRON BINDING CAPACITY AND IRON AND % [id number] 00:00:00 Test Item Value Reference Range Interpretation Comments IRON, SERUM (test code = 2221) 28 UG/DL UNSATURATED IBC (test code = ) 315 UG/DL CALC TOTAL IBC (test code = 2076) 343 UG/DL CALC % IRON SAT (test code = 2078) 8 % IRON BINDING CAPACITY AND IRON AND % [id number] 00:00:00 Test Item Value Reference Range Interpretation Comments IRON, SERUM (test code = 2221) 28 UG/DL UNSATURATED IBC (test code = 41951) 315 UG/DL CALC TOTAL IBC (test code = 2076) 343 UG/DL CALC % IRON SAT (test code = 2078) 8 % PROTIME AND [id number] 00:00:00 Test Item Value Reference Range Interpretation Comments PROTHROMBIN TIME (PT) (test code 14.8 SECONDS = 1402) INR (test code = 49962) 1.1 PTT (test code = 1403) 35.8 SECONDS PROTIME AND [id number] 00:00:00 Test Item Value Reference Range Interpretation Comments PROTHROMBIN TIME (PT) (test code 14.8 SECONDS = 1402) INR (test code = 34942) 1.1 PTT (test code = 1403) 35.8 SECONDS RHEUMATOID FACTOR, [id number] 00:00:00 Test Item Value Reference Range Interpretation Comments RHEUMATOID FACTOR, QUANT (test code <10 IU/ML = 3502) RHEUMATOID FACTOR, [id number] 00:00:00 Test Item Value Reference Range Interpretation Comments RHEUMATOID FACTOR, QUANT (test code <10 IU/ML = 3502) RHEUMATOID FACTOR, [id number] 00:00:00 Test Item Value Reference Range Interpretation Comments RHEUMATOID FACTOR, QUANT (test code <10 IU/ML = 3502) CCP [id number] 00:00:00 Test Item Value Reference Range Interpretation Comments CCP IgG (test code = 62685) <0.5 U/ML CCP [id number] 00:00:00 Test Item Value Reference Range Interpretation Comments CCP IgG (test code = 31235) <0.5 U/ML CCP [id number] 00:00:00 Test Item Value Reference Range Interpretation Comments CCP IgG (test code = 59535) <0.5 U/ML ASH (SM) [id number] 00:00:00 Test Item Value Reference Range Interpretation Comments ASH (Sm) ANTIBODY (test code = <0.2 AI 19272) ASH (SM) [id number] 00:00:00 Test Item Value Reference Range Interpretation Comments ASH (Sm) ANTIBODY (test code = <0.2 AI 40800) DNA DS [id number] 00:00:00 Test Item Value Reference Range Interpretation Comments dsDNA ANTIBODY (test code = 4287) 1.0 IU/ML DNA DS [id number] 00:00:00 Test Item Value Reference Range Interpretation Comments dsDNA ANTIBODY (test code = 4287) 1.0 IU/ML CULTURE, [id number] 00:00:00 Test Item Value Reference Range Interpretation Comments CULTURE, URINE (test SPECIMEN NUMBER: code = 16970) [id number] CULTURE, [id number] 00:00:00 Test Item Value Reference Range Interpretation Comments CULTURE, URINE (test SPECIMEN NUMBER: code = 40173) [id number] CULTURE, [id number] 00:00:00 Test Item Value Reference Range Interpretation Comments CULTURE, URINE (test SPECIMEN NUMBER: code = 99919) [id number] CULTURE, [id number] 00:00:00 Test Item Value Reference Range Interpretation Comments CULTURE, URINE (test SPECIMEN NUMBER: code = 91114) [id number] CULTURE, [id number] 00:00:00 Test Item Value Reference Range Interpretation Comments CULTURE, URINE (test SPECIMEN NUMBER: code = 79249) [id number] CULTURE, [id number] 00:00:00 Test Item Value Reference Range Interpretation Comments CULTURE, URINE (test SPECIMEN NUMBER: code = 94581) [id number] CULTURE, [id number] 00:00:00 Test Item Value Reference Range Interpretation Comments CULTURE, URINE (test SPECIMEN NUMBER: code = 05100) [id number] CULTURE, [id number] 00:00:00 Test Item Value Reference Range Interpretation Comments CULTURE, URINE (test SPECIMEN NUMBER: code = 03441) [id number] JAMEEL TITER AND PATTERN [REFLEX]2021-01-17 00:00:00 Test Item Value Reference Range Interpretation Comments PATTERN (test code = SPECKLED 41703) JAMEEL TITER (test code = 1:640 TITER 3550) PATTERN 2 (test code = NOT DETECTED 69375) JAMEEL TITER 2 (test code = NOT DETECTED TITER 73789) PATTERN 3 (test code = NOT DETECTED 67530) JAMEEL TITER 3 (test code = NOT DETECTED TITER 97071) METHOD (test code = 38531) (NOTE) JAMEEL TITER AND PATTERN [REFLEX]2021-01-17 00:00:00 Test Item Value Reference Range Interpretation Comments PATTERN (test code = SPECKLED 45796) JAMEEL TITER (test code = 1:640 TITER 3550) PATTERN 2 (test code = NOT DETECTED 02093) JAMEEL TITER 2 (test code = NOT DETECTED TITER 18441) PATTERN 3 (test code = NOT DETECTED 10074) JAMEEL TITER 3 (test code = NOT DETECTED TITER 67384) METHOD (test code = 07359) (NOTE) JAMEEL TITER AND PATTERN [REFLEX]2021-01-17 00:00:00 Test Item Value Reference Range Interpretation Comments PATTERN (test code = SPECKLED 35717) JAMEEL TITER (test code = 1:640 TITER 3550) PATTERN 2 (test code = NOT DETECTED 66377) JAMEEL TITER 2 (test code = NOT DETECTED TITER 84200) PATTERN 3 (test code = NOT DETECTED 23215) JAMEEL TITER 3 (test code = NOT DETECTED TITER 96893) METHOD (test code = 12637) (NOTE) JAMEEL TITER AND PATTERN [REFLEX]2021-01-17 00:00:00 Test Item Value Reference Range Interpretation Comments PATTERN (test code = SPECKLED 98614) JAMEEL TITER (test code = 1:640 TITER 3550) PATTERN 2 (test code = NOT DETECTED 68661) JAMEEL TITER 2 (test code = NOT DETECTED TITER 21094) PATTERN 3 (test code = NOT DETECTED 47477) JAMEEL TITER 3 (test code = NOT DETECTED TITER 50150) METHOD (test code = 64042) (NOTE) JAMEEL TITER AND PATTERN [REFLEX]2021-01-17 00:00:00 Test Item Value Reference Range Interpretation Comments PATTERN (test code = SPECKLED 54783) JAMEEL TITER (test code = 1:640 TITER 3550) PATTERN 2 (test code = NOT DETECTED 95419) JAMEEL TITER 2 (test code = NOT DETECTED TITER 81233) PATTERN 3 (test code = NOT DETECTED 55460) JAMEEL TITER 3 (test code = NOT DETECTED TITER 30067) METHOD (test code = 62948) (NOTE) CBC W/AUTO [id number] 00:00:00 Test Item Value Reference Range Interpretation [...] NUCLEATED RBCS (test code = 0.00 K/UL 76554) CBC W/AUTO [id number] 00:00:00 Test Item Value Reference Range Interpretation [...] NUCLEATED RBCS (test code = 0.00 K/UL 87518) CBC W/AUTO [id number] 00:00:00 Test Item Value Reference Range Interpretation [...] NUCLEATED RBCS (test code = 0.00 K/UL 57432) COMPREHENSIVE METABOLIC [id number] 00:00:00 Test Item Value Reference Range Interpretation Comments GLUCOSE (test code = 2217) 139 MG/DL BUN (test code = 2208) 21 MG/DL CREATININE (test code = 2214) 0.83 MG/DL eGFR AMER. (test code 88 ML/MIN/1.73 = 02845) eGFR NON- AMER. (test 76 ML/MIN/1.73 code = 77354) CALC BUN/CREAT (test code = 25 RATIO [...] code = 2219) 23 U/L COMPREHENSIVE METABOLIC [id number] 00:00:00 Test Item Value Reference Range Interpretation Comments GLUCOSE (test code = 2217) 139 MG/DL BUN (test code = 2208) 21 MG/DL CREATININE (test code = 2214) 0.83 MG/DL eGFR AMER. (test code 88 ML/MIN/1.73 = 19735) eGFR NON- AMER. (test 76 ML/MIN/1.73 code = 35089) CALC BUN/CREAT (test code = 25 RATIO [...] ALT (test code = 2219) 23 U/L [id number] 00:00:00 Test Item Value Reference Range Interpretation Comments NT-proBNP (test code = 77488) 247 PG/ML [id number] 00:00:00 Test Item Value Reference Range Interpretation Comments NT-proBNP (test code = 89350) 247 PG/ML [id number] 00:00:00 Test Item Value Reference Range Interpretation Comments NT-proBNP (test code = 94210) 247 PG/ML JAMEEL (ANTI-NUCLEAR AB) WITH REFLEX [id number] 00:00:00 Test Item Value Reference Range Interpretation Comments ANTI-NUCLEAR ANTIBODIES (test code = POSITIVE 3506) JAMEEL (ANTI-NUCLEAR AB) WITH REFLEX [id number] 00:00:00 Test Item Value Reference Range Interpretation Comments ANTI-NUCLEAR ANTIBODIES (test code = POSITIVE 3506) C-REACTIVE [id number] 00:00:00 Test Item Value Reference Range Interpretation Comments C-REACTIVE PROTEIN (test code = 1.1 MG/DL 3513) C-REACTIVE [id number] 00:00:00 Test Item Value Reference Range Interpretation Comments C-REACTIVE PROTEIN (test code = 1.1 MG/DL 3513) SEDIMENTATION [id number] 00:00:00 Test Item Value Reference Range Interpretation Comments SEDIMENTATION RATE (test code = 88 MM/HOUR 1017) SEDIMENTATION [id number] 00:00:00 Test Item Value Reference Range Interpretation Comments SEDIMENTATION RATE (test code = 88 MM/HOUR 1017) [id number] 00:00:00 Test Item Value Reference Range Interpretation Comments D-DIMER (test code = 1405) 0.77 UG/MLFEU [id number] 00:00:00 Test Item Value Reference Range Interpretation Comments D-DIMER (test code = 1405) 0.77 UG/MLFEU CBC W/AUTO [id number] 00:00:00 Test Item Value Reference Range Interpretation [...] NUCLEATED RBCS (test code = 0.00 K/UL 95374) CBC W/AUTO [id number] 00:00:00 Test Item Value Reference Range Interpretation [...] NUCLEATED RBCS (test code = 0.00 K/UL 85454) CBC W/AUTO [id number] 00:00:00 Test Item Value Reference Range Interpretation [...] NUCLEATED RBCS (test code = 0.00 K/UL 92844) CBC W/AUTO [id number] 00:00:00 Test Item Value Reference Range Interpretation [...] NUCLEATED RBCS (test code = 0.00 K/UL 44549) CBC W/AUTO [id number] 00:00:00 Test Item Value Reference Range Interpretation [...] NUCLEATED RBCS (test code = 0.00 K/UL 00451) COMPREHENSIVE METABOLIC [id number] 00:00:00 Test Item Value Reference Range Interpretation Comments GLUCOSE (test code = 2217) 139 MG/DL BUN (test code = 2208) 21 MG/DL CREATININE (test code = 2214) 0.83 MG/DL eGFR AMER. (test code 88 ML/MIN/1.73 = 78984) eGFR NON- AMER. (test 76 ML/MIN/1.73 code = 88095) CALC BUN/CREAT (test code = 25 RATIO [...] code = 2219) 23 U/L COMPREHENSIVE METABOLIC [id number] 00:00:00 Test Item Value Reference Range Interpretation Comments GLUCOSE (test code = 2217) 139 MG/DL BUN (test code = 2208) 21 MG/DL CREATININE (test code = 2214) 0.83 MG/DL eGFR AMER. (test code 88 ML/MIN/1.73 = 65355) eGFR NON- AMER. (test 76 ML/MIN/1.73 code = 07781) CALC BUN/CREAT (test code = 25 RATIO [...] ALT (test code = 2219) 23 U/L [id number] 00:00:00 Test Item Value Reference Range Interpretation Comments NT-proBNP (test code = 40677) 247 PG/ML [id number] 00:00:00 Test Item Value Reference Range Interpretation Comments NT-proBNP (test code = 92900) 247 PG/ML [id number] 00:00:00 Test Item Value Reference Range Interpretation Comments NT-proBNP (test code = 00090) 247 PG/ML JAMEEL (ANTI-NUCLEAR AB) WITH REFLEX [id number] 00:00:00 Test Item Value Reference Range Interpretation Comments ANTI-NUCLEAR ANTIBODIES (test code = POSITIVE 3506) JAMEEL (ANTI-NUCLEAR AB) WITH REFLEX [id number] 00:00:00 Test Item Value Reference Range Interpretation Comments ANTI-NUCLEAR ANTIBODIES (test code = POSITIVE 3506) C-REACTIVE [id number] 00:00:00 Test Item Value Reference Range Interpretation Comments C-REACTIVE PROTEIN (test code = 1.1 MG/DL 3513) C-REACTIVE [id number] 00:00:00 Test Item Value Reference Range Interpretation Comments C-REACTIVE PROTEIN (test code = 1.1 MG/DL 3513) COMPREHENSIVE METABOLIC [id number] 00:00:00 Test Item Value Reference Range Interpretation Comments GLUCOSE (test code = 2217) 139 MG/DL BUN (test code = 2208) 21 MG/DL CREATININE (test code = 2214) 0.83 MG/DL eGFR AMER. (test code 88 ML/MIN/1.73 = 24877) eGFR NON- AMER. (test 76 ML/MIN/1.73 code = 53300) CALC BUN/CREAT (test code = 25 RATIO [...] ALKALINE PHOSPHATASE (test 101 U/L code = 220) AST (test code = 2218) 30 U/L ALT (test code = 2219) 23 U/L SEDIMENTATION [id number] 00:00:00 Test Item Value Reference Range Interpretation Comments SEDIMENTATION RATE (test code = 88 MM/HOUR 1017) SEDIMENTATION [id number] 00:00:00 Test Item Value Reference Range Interpretation Comments SEDIMENTATION RATE (test code = 88 MM/HOUR 1017) [id number] 00:00:00 Test Item Value Reference Range Interpretation Comments D-DIMER (test code = 1405) 0.77 UG/MLFEU [id number] 00:00:00 Test Item Value Reference Range Interpretation Comments D-DIMER (test code = 1405) 0.77 UG/MLFEU [id number] 00:00:00 Test Item Value Reference Range Interpretation Comments NT-proBNP (test code = 85264) 247 PG/ML [id number] 00:00:00 Test Item Value Reference Range Interpretation Comments NT-proBNP (test code = 44131) 247 PG/ML JAMEEL (ANTI-NUCLEAR AB) WITH REFLEX [id number] 00:00:00 Test Item Value Reference Range Interpretation Comments ANTI-NUCLEAR ANTIBODIES (test code = POSITIVE 3506) C-REACTIVE [id number] 00:00:00 Test Item Value Reference Range Interpretation Comments C-REACTIVE PROTEIN (test code = 1.1 MG/DL 3513) SEDIMENTATION [id number] 00:00:00 Test Item Value Reference Range Interpretation Comments SEDIMENTATION RATE (test code = 88 MM/HOUR 1017) [id number] 00:00:00 Test Item Value Reference Range Interpretation Comments D-DIMER (test code = 1405) 0.77 UG/MLFEU CBC W/AUTO [id number] 00:00:00 Test Item Value Reference Range Interpretation [...] NUCLEATED RBCS (test code = 0.00 K/UL 30471) CBC W/AUTO [id number] 00:00:00 Test Item Value Reference Range Interpretation [...] NUCLEATED RBCS (test code = 0.00 K/UL 06870) COMPREHENSIVE METABOLIC [id number] 00:00:00 Test Item Value Reference Range Interpretation Comments GLUCOSE (test code = 2217) 139 MG/DL BUN (test code = 2208) 21 MG/DL CREATININE (test code = 2214) 0.83 MG/DL eGFR AMER. (test code 88 ML/MIN/1.73 = 98691) eGFR NON- AMER. (test 76 ML/MIN/1.73 code = 14285) CALC BUN/CREAT (test code = 25 RATIO [...] ALT (test code = 2219) 23 U/L [id number] 00:00:00 Test Item Value Reference Range Interpretation Comments NT-proBNP (test code = 39228) 247 PG/ML [id number] 00:00:00 Test Item Value Reference Range Interpretation Comments NT-proBNP (test code = 64963) 247 PG/ML JAMEEL (ANTI-NUCLEAR AB) WITH REFLEX [id number] 00:00:00 Test Item Value Reference Range Interpretation Comments ANTI-NUCLEAR ANTIBODIES (test code = POSITIVE 3506) C-REACTIVE [id number] 00:00:00 Test Item Value Reference Range Interpretation Comments C-REACTIVE PROTEIN (test code = 1.1 MG/DL 3513) SEDIMENTATION [id number] 00:00:00 Test Item Value Reference Range Interpretation Comments SEDIMENTATION RATE (test code = 88 MM/HOUR 1017) [id number] 00:00:00 Test Item Value Reference Range Interpretation Comments D-DIMER (test code = 1405) 0.77 UG/MLFEU CBC W/AUTO [id number] 00:00:00 Test Item Value Reference Range Interpretation [...] NUCLEATED RBCS (test code = 0.00 K/UL 57839) CBC W/AUTO [id number] 00:00:00 Test Item Value Reference Range Interpretation [...] NUCLEATED RBCS (test code = 0.00 K/UL 50261) CBC W/AUTO [id number] 00:00:00 Test Item Value Reference Range Interpretation [...] NUCLEATED RBCS (test code = 0.00 K/UL 29701) COMPREHENSIVE METABOLIC [id number] 00:00:00 Test Item Value Reference Range Interpretation Comments GLUCOSE (test code = 2217) 139 MG/DL BUN (test code = 2208) 21 MG/DL CREATININE (test code = 2214) 0.83 MG/DL eGFR AMER. (test code 88 ML/MIN/1.73 = 29483) eGFR NON- AMER. (test 76 ML/MIN/1.73 code = 74666) CALC BUN/CREAT (test code = 25 RATIO [...] code = 2219) 23 U/L COMPREHENSIVE METABOLIC [id number] 00:00:00 Test Item Value Reference Range Interpretation Comments GLUCOSE (test code = 2217) 139 MG/DL BUN (test code = 2208) 21 MG/DL CREATININE (test code = 2214) 0.83 MG/DL eGFR AMER. (test code 88 ML/MIN/1.73 = 21052) eGFR NON- AMER. (test 76 ML/MIN/1.73 code = 55125) CALC BUN/CREAT (test code = 25 RATIO [...] ALT (test code = 2219) 23 U/L [id number] 00:00:00 Test Item Value Reference Range Interpretation Comments NT-proBNP (test code = 42918) 247 PG/ML [id number] 00:00:00 Test Item Value Reference Range Interpretation Comments NT-proBNP (test code = 79654) 247 PG/ML [id number] 00:00:00 Test Item Value Reference Range Interpretation Comments NT-proBNP (test code = 33762) 247 PG/ML JAMEEL (ANTI-NUCLEAR AB) WITH REFLEX [id number] 00:00:00 Test Item Value Reference Range Interpretation Comments ANTI-NUCLEAR ANTIBODIES (test code = POSITIVE 3506) JAMEEL (ANTI-NUCLEAR AB) WITH REFLEX [id number] 00:00:00 Test Item Value Reference Range Interpretation Comments ANTI-NUCLEAR ANTIBODIES (test code = POSITIVE 3506) C-REACTIVE [id number] 00:00:00 Test Item Value Reference Range Interpretation Comments C-REACTIVE PROTEIN (test code = 1.1 MG/DL 3513) C-REACTIVE [id number] 00:00:00 Test Item Value Reference Range Interpretation Comments C-REACTIVE PROTEIN (test code = 1.1 MG/DL 3513) SEDIMENTATION [id number] 00:00:00 Test Item Value Reference Range Interpretation Comments SEDIMENTATION RATE (test code = 88 MM/HOUR 1017) SEDIMENTATION [id number] 00:00:00 Test Item Value Reference Range Interpretation Comments SEDIMENTATION RATE (test code = 88 MM/HOUR 1017) [id number] 00:00:00 Test Item Value Reference Range Interpretation Comments D-DIMER (test code = 1405) 0.77 UG/MLFEU [id number] 00:00:00 Test Item Value Reference Range Interpretation Comments D-DIMER (test code = 1405) 0.77 UG/MLFEU HEMOGLOBIN [id number] 00:00:00 Test Item Value Reference Range Interpretation Comments HEMOGLOBIN A1c (test code = 57337) 7.5 % HEMOGLOBIN [id number] 00:00:00 Test Item Value Reference Range Interpretation Comments HEMOGLOBIN A1c (test code = 40376) 7.5 % HEMOGLOBIN [id number] 00:00:00 Test Item Value Reference Range Interpretation Comments HEMOGLOBIN A1c (test code = 72408) 7.5 % HEMOGLOBIN [id number] 00:00:00 Test Item Value Reference Range Interpretation Comments HEMOGLOBIN A1c (test code = 76489) 7.5 % HEMOGLOBIN [id number] 00:00:00 Test Item Value Reference Range Interpretation Comments HEMOGLOBIN A1c (test code = 31011) 7.5 % HEMOGLOBIN [id number] 00:00:00 Test Item Value Reference Range Interpretation Comments HEMOGLOBIN A1c (test code = 77967) 7.5 % HEMOGLOBIN [id number] 00:00:00 Test Item Value Reference Range Interpretation Comments HEMOGLOBIN A1c (test code = 44891) 7.5 % HEMOGLOBIN [id number] 00:00:00 Test Item Value Reference Range Interpretation Comments HEMOGLOBIN A1c (test code = 59286) 7.5 % HEMOGLOBIN [id number] 00:00:00 Test Item Value Reference Range Interpretation Comments HEMOGLOBIN A1c (test code = 97872) 7.5 % HEMOGLOBIN [id number] 00:00:00 Test Item Value Reference Range Interpretation Comments HEMOGLOBIN A1c (test code = 78142) 7.5 % HEMOGLOBIN [id number] 00:00:00 Test Item Value Reference Range Interpretation Comments HEMOGLOBIN A1c (test code = 40031) 7.5 % HEMOGLOBIN [id number] 00:00:00 Test Item Value Reference Range Interpretation Comments HEMOGLOBIN A1c (test code = 08740) 7.5 % HEMOGLOBIN [id number] 00:00:00 Test Item Value Reference Range Interpretation Comments HEMOGLOBIN A1c (test code = 87002) 7.5 % CULTURE, [id number] 00:00:00 Test Item Value Reference Range Interpretation Comments CULTURE, URINE (test SPECIMEN NUMBER: code = 12298) [id number] CULTURE, [id number] 00:00:00 Test Item Value Reference Range Interpretation Comments CULTURE, URINE (test SPECIMEN NUMBER: code = 59644) [id number] CULTURE, [id number] 00:00:00 Test Item Value Reference Range Interpretation Comments CULTURE, URINE (test SPECIMEN NUMBER: code = 51792) [id number] CULTURE, [id number] 00:00:00 Test Item Value Reference Range Interpretation Comments CULTURE, URINE (test SPECIMEN NUMBER: code = 76282) [id number] CULTURE, [id number] 00:00:00 Test Item Value Reference Range Interpretation Comments CULTURE, URINE (test SPECIMEN NUMBER: code = 61120) [id number] CULTURE, [id number] 00:00:00 Test Item Value Reference Range Interpretation Comments CULTURE, URINE (test SPECIMEN NUMBER: code = 60703) [id number] CULTURE, [id number] 00:00:00 Test Item Value Reference Range Interpretation Comments CULTURE, URINE (test SPECIMEN NUMBER: code = 49841) [id number] CULTURE, [id number] 00:00:00 Test Item Value Reference Range Interpretation Comments CULTURE, URINE (test SPECIMEN NUMBER: code = 07062) [id number] HEMOGLOBIN [id number] 00:00:00 Test Item Value Reference Range Interpretation Comments HEMOGLOBIN A1c (test code = 06797) 8.6 % HEMOGLOBIN [id number] 00:00:00 Test Item Value Reference Range Interpretation Comments HEMOGLOBIN A1c (test code = 27169) 8.6 % HEMOGLOBIN [id number] 00:00:00 Test Item Value Reference Range Interpretation Comments HEMOGLOBIN A1c (test code = 57778) 8.6 % LIPID [id number] 00:00:00 Test Item Value Reference Range Interpretation Comments CHOLESTEROL (test code = 2210) 104 MG/DL TRIGLYCERIDES (test code = 2232) 164 MG/DL HDL CHOLESTEROL (test code = 2220) 39 MG/DL CALC LDL CHOL (test code = 2237) 41 MG/DL RISK RATIO LDL/HDL (test code = 1.05 RATIO 2238) LIPID [id number] 00:00:00 Test Item Value Reference Range Interpretation Comments CHOLESTEROL (test code = 2210) 104 MG/DL TRIGLYCERIDES (test code = 2232) 164 MG/DL HDL CHOLESTEROL (test code = 2220) 39 MG/DL CALC LDL CHOL (test code = 2237) 41 MG/DL RISK RATIO LDL/HDL (test code = 1.05 RATIO 2238) COMPREHENSIVE METABOLIC [id number] 00:00:00 Test Item Value Reference Range Interpretation Comments GLUCOSE (test code = 2217) 330 MG/DL BUN (test code = 2208) 11 MG/DL CREATININE (test code = 2214) 0.84 MG/DL eGFR AMER. (test code 87 ML/MIN/1.73 = 55618) eGFR NON- AMER. (test 75 ML/MIN/1.73 code = 43336) CALC BUN/CREAT (test code = 13 RATIO [...] code = 2219) 29 U/L COMPREHENSIVE METABOLIC [id number] 00:00:00 Test Item Value Reference Range Interpretation Comments GLUCOSE (test code = 2217) 330 MG/DL BUN (test code = 2208) 11 MG/DL CREATININE (test code = 2214) 0.84 MG/DL eGFR AMER. (test code 87 ML/MIN/1.73 = 75337) eGFR NON- AMER. (test 75 ML/MIN/1.73 code = 39420) CALC BUN/CREAT (test code = 13 RATIO [...] = 2219) 29 U/L MICROALBUMIN/CREATININE, RANDOM AND [id number] 00:00:00 Test Item Value Reference Range Interpretation Comments CREATININE, URINE, CONC. (test 131.3 MG/DL code = 2072) ALBUMIN, URINE, RANDOM (test code 0.4 MG/DL = 51370) CALC ALBUMIN/CREAT, RND (test 3 MG/G code = 81451) MICROALBUMIN/CREATININE, RANDOM AND [id number] 00:00:00 Test Item Value Reference Range Interpretation Comments CREATININE, URINE, CONC. (test 131.3 MG/DL code = 2072) ALBUMIN, URINE, RANDOM (test code 0.4 MG/DL = 74349) CALC ALBUMIN/CREAT, RND (test 3 MG/G code = 26134) HEMOGLOBIN [id number] 00:00:00 Test Item Value Reference Range Interpretation Comments HEMOGLOBIN A1c (test code = 70686) 8.6 % HEMOGLOBIN [id number] 00:00:00 Test Item Value Reference Range Interpretation Comments HEMOGLOBIN A1c (test code = 46426) 8.6 % HEMOGLOBIN [id number] 00:00:00 Test Item Value Reference Range Interpretation Comments HEMOGLOBIN A1c (test code = 66161) 8.6 % HEMOGLOBIN [id number] 00:00:00 Test Item Value Reference Range Interpretation Comments HEMOGLOBIN A1c (test code = 15361) 8.6 % HEMOGLOBIN [id number] 00:00:00 Test Item Value Reference Range Interpretation Comments HEMOGLOBIN A1c (test code = 89934) 8.6 % LIPID [id number] 00:00:00 Test Item Value Reference Range Interpretation Comments CHOLESTEROL (test code = 2210) 104 MG/DL TRIGLYCERIDES (test code = 2232) 164 MG/DL HDL CHOLESTEROL (test code = 2220) 39 MG/DL CALC LDL CHOL (test code = 2237) 41 MG/DL RISK RATIO LDL/HDL (test code = 1.05 RATIO 2238) LIPID [id number] 00:00:00 Test Item Value Reference Range Interpretation Comments CHOLESTEROL (test code = 2210) 104 MG/DL TRIGLYCERIDES (test code = 2232) 164 MG/DL HDL CHOLESTEROL (test code = 2220) 39 MG/DL CALC LDL CHOL (test code = 2237) 41 MG/DL RISK RATIO LDL/HDL (test code = 1.05 RATIO 2238) COMPREHENSIVE METABOLIC [id number] 00:00:00 Test Item Value Reference Range Interpretation Comments GLUCOSE (test code = 2217) 330 MG/DL BUN (test code = 2208) 11 MG/DL CREATININE (test code = 2214) 0.84 MG/DL eGFR AMER. (test code 87 ML/MIN/1.73 = 34610) eGFR NON- AMER. (test 75 ML/MIN/1.73 code = 16441) CALC BUN/CREAT (test code = 13 RATIO [...] code = 2219) 29 U/L COMPREHENSIVE METABOLIC [id number] 00:00:00 Test Item Value Reference Range Interpretation Comments GLUCOSE (test code = 2217) 330 MG/DL BUN (test code = 2208) 11 MG/DL CREATININE (test code = 2214) 0.84 MG/DL eGFR AMER. (test code 87 ML/MIN/1.73 = 59201) eGFR NON- AMER. (test 75 ML/MIN/1.73 code = 59254) CALC BUN/CREAT (test code = 13 RATIO [...] = 2219) 29 U/L MICROALBUMIN/CREATININE, RANDOM AND [id number] 00:00:00 Test Item Value Reference Range Interpretation Comments CREATININE, URINE, CONC. (test 131.3 MG/DL code = 2072) ALBUMIN, URINE, RANDOM (test code 0.4 MG/DL = 08923) CALC ALBUMIN/CREAT, RND (test 3 MG/G code = 14432) MICROALBUMIN/CREATININE, RANDOM AND [id number] 00:00:00 Test Item Value Reference Range Interpretation Comments CREATININE, URINE, CONC. (test 131.3 MG/DL code = 2072) ALBUMIN, URINE, RANDOM (test code 0.4 MG/DL = 99723) CALC ALBUMIN/CREAT, RND (test 3 MG/G code = 71973) LIPID [id number] 00:00:00 Test Item Value Reference Range Interpretation Comments CHOLESTEROL (test code = 2210) 104 MG/DL TRIGLYCERIDES (test code = 2232) 164 MG/DL HDL CHOLESTEROL (test code = 2220) 39 MG/DL CALC LDL CHOL (test code = 2237) 41 MG/DL RISK RATIO LDL/HDL (test code = 1.05 RATIO 2238) COMPREHENSIVE METABOLIC [id number] 00:00:00 Test Item Value Reference Range Interpretation Comments GLUCOSE (test code = 2217) 330 MG/DL BUN (test code = 2208) 11 MG/DL CREATININE (test code = 2214) 0.84 MG/DL eGFR AMER. (test code 87 ML/MIN/1.73 = 95925) eGFR NON- AMER. (test 75 ML/MIN/1.73 code = 99392) CALC BUN/CREAT (test code = 13 RATIO 2235) SODIUM (test code = 2231) 136 MEQ/L POTASSIUM (test code = 2228) 4.5 MEQ/L CHLORIDE (test code = 2215) 97 MEQ/L CARBON DIOXIDE (test code = 27 MEQ/L 2206) CALCIUM (test code = 2209) 9.1 MG/DL [...] = 2219) 29 U/L MICROALBUMIN/CREATININE, RANDOM AND [id number] 00:00:00 Test Item Value Reference Range Interpretation Comments CREATININE, URINE, CONC. (test 131.3 MG/DL code = 2072) ALBUMIN, URINE, RANDOM (test code 0.4 MG/DL = 24571) CALC ALBUMIN/CREAT, RND (test 3 MG/G code = 35700) HEMOGLOBIN [id number] 00:00:00 Test Item Value Reference Range Interpretation Comments HEMOGLOBIN A1c (test code = 52760) 8.6 % HEMOGLOBIN [id number] 00:00:00 Test Item Value Reference Range Interpretation Comments HEMOGLOBIN A1c (test code = 79319) 8.6 % LIPID [id number] 00:00:00 Test Item Value Reference Range Interpretation Comments CHOLESTEROL (test code = 2210) 104 MG/DL TRIGLYCERIDES (test code = 2232) 164 MG/DL HDL CHOLESTEROL (test code = 2220) 39 MG/DL CALC LDL CHOL (test code = 2237) 41 MG/DL RISK RATIO LDL/HDL (test code = 1.05 RATIO 2238) COMPREHENSIVE METABOLIC [id number] 00:00:00 Test Item Value Reference Range Interpretation Comments GLUCOSE (test code = 2217) 330 MG/DL BUN (test code = 2208) 11 MG/DL CREATININE (test code = 2214) 0.84 MG/DL eGFR AMER. (test code 87 ML/MIN/1.73 = 11666) eGFR NON- AMER. (test 75 ML/MIN/1.73 code = 82621) CALC BUN/CREAT (test code = 13 RATIO [...] = 2219) 29 U/L MICROALBUMIN/CREATININE, RANDOM AND [id number] 00:00:00 Test Item Value Reference Range Interpretation Comments CREATININE, URINE, CONC. (test 131.3 MG/DL code = 2072) ALBUMIN, URINE, RANDOM (test code 0.4 MG/DL = 58235) CALC ALBUMIN/CREAT, RND (test 3 MG/G code = 82028) HEMOGLOBIN [id number] 00:00:00 Test Item Value Reference Range Interpretation Comments HEMOGLOBIN A1c (test code = 00030) 8.6 % HEMOGLOBIN [id number] 00:00:00 Test Item Value Reference Range Interpretation Comments HEMOGLOBIN A1c (test code = 71401) 8.6 % HEMOGLOBIN [id number] 00:00:00 Test Item Value Reference Range Interpretation Comments HEMOGLOBIN A1c (test code = 10015) 8.6 % LIPID [id number] 00:00:00 Test Item Value Reference Range Interpretation Comments CHOLESTEROL (test code = 2210) 104 MG/DL TRIGLYCERIDES (test code = 2232) 164 MG/DL HDL CHOLESTEROL (test code = 2220) 39 MG/DL CALC LDL CHOL (test code = 2237) 41 MG/DL RISK RATIO LDL/HDL (test code = 1.05 RATIO 2238) LIPID [id number] 00:00:00 Test Item Value Reference Range Interpretation Comments CHOLESTEROL (test code = 2210) 104 MG/DL TRIGLYCERIDES (test code = 2232) 164 MG/DL HDL CHOLESTEROL (test code = 2220) 39 MG/DL CALC LDL CHOL (test code = 2237) 41 MG/DL RISK RATIO LDL/HDL (test code = 1.05 RATIO 2238) COMPREHENSIVE METABOLIC [id number] 00:00:00 Test Item Value Reference Range Interpretation Comments GLUCOSE (test code = 2217) 330 MG/DL BUN (test code = 2208) 11 MG/DL CREATININE (test code = 2214) 0.84 MG/DL eGFR AMER. (test code 87 ML/MIN/1.73 = 07439) eGFR NON- AMER. (test 75 ML/MIN/1.73 code = 62431) CALC BUN/CREAT (test code = 13 RATIO [...] code = 2219) 29 U/L COMPREHENSIVE METABOLIC [id number] 00:00:00 Test Item Value Reference Range Interpretation Comments GLUCOSE (test code = 2217) 330 MG/DL BUN (test code = 2208) 11 MG/DL CREATININE (test code = 2214) 0.84 MG/DL eGFR AMER. (test code 87 ML/MIN/1.73 = 47716) eGFR NON- AMER. (test 75 ML/MIN/1.73 code = 56080) CALC BUN/CREAT (test code = 13 RATIO [...] = 2219) 29 U/L MICROALBUMIN/CREATININE, RANDOM AND [id number] 00:00:00 Test Item Value Reference Range Interpretation Comments CREATININE, URINE, CONC. (test 131.3 MG/DL code = 2072) ALBUMIN, URINE, RANDOM (test code 0.4 MG/DL = 63435) CALC ALBUMIN/CREAT, RND (test 3 MG/G code = 89120) MICROALBUMIN/CREATININE, RANDOM AND [id number] 00:00:00 Test Item Value Reference Range Interpretation Comments CREATININE, URINE, CONC. (test 131.3 MG/DL code = 2072) ALBUMIN, URINE, RANDOM (test code 0.4 MG/DL = 42110) CALC ALBUMIN/CREAT, RND (test 3 MG/G code = 50394)
[2022-03-02] MEDS ORDERED: FAMOTIDINE 20 MG/2 ML VIAL IV ONE (15:25)
[2022-03-02] MEDS ORDERED: NA CHLORIDE 0.9% 1,000 ML ONE (15:25)
[2022-03-02] MEDS ORDERED: ONDANSETRON 4 MG/2 ML VIAL ONE ×2 (15:25→19:30)
[2022-03-02 15:40] LABS: Absolute Lymphocytes (CBC) 0.7 K/uL (0.7-4.9); Hematocrit 31.3 % (36.0-45.0); Lymphocytes % 22.3 % (15.3-44.8); MPV 6.5 fL (7.6-11.3)
[2022-03-02 16:01] LABS: Albumin 3.4 g/dL (3.4-5.0); Bilirubin Total 0.4 mg/dL (0.2-1.0); Potassium 4.1 mmol/L (3.5-5.1)
[2022-03-02 16:30] LABS: Urine Blood Trace-intact (Negative); Urine Glucose Negative (Negative); Urine Protein Negative (Negative); Urine pH 5.5 (5.0-7.0)
[2022-03-02 16:45] LABS: Urine Bacteria <20 /HPF (<20); Urine Mucus Slight /HPF (None Seen); Urine RBC <5 /HPF (None Seen)
[2022-03-02] MEDS ORDERED: MORPHINE 4 MG/ML SYR ONE (16:56)
--- NOTE | 2022-03-02 19:00 | RAD REPORT ---
EXAM DESCRIPTION: CT - Abdomen Pelvis W Contrast - 03/02/2022 6:27 pm CLINICAL HISTORY: Abdominal pain COMPARISON: September 2021 TECHNIQUE: Computed axial tomography of the abdomen pelvis was obtained. 100 cc Isovue-300 was admin istered intravenously. Oral contrast was not requested which limits evaluation of bowel and appendix All CT scans are performed using dose optimization technique as appropriate and may include automated exposure control or mA/KV adjustment according to patient size. FINDINGS: Cirrhotic liver. Cholecystectomy. Portal vein is patent. Paraesophageal varices Spleen 14 centimeters. Pancreas, adrenals and kidneys unremarkable. Small abdominal lymph nodes are unchanged There is no evidence of diverticulitis. Hysterectomy. No adnexal mass Old compression fracture L1. Small ventral and small umbilical hernias contain fat IMPRESSION: Cirrhosis No acute abnormality seen
--- NOTE | 2022-03-02 19:16 | EDPHYS ---
Physician Documentation [facility] Name: Sita Delgado Age: 62 yrs Sex: Female : 1960 Arrival Date: 03/02/2022 Time: 15:01 Bed 11 Private MD: ED Physician Ollie Cutler HPI: 03/02 18:58 This 62 yrs old Female presents to ER via Ambulatory with complaints of kb Nausea, Abdominal Pain. 18:58 The patient presents to the emergency department with nausea, diarrhea. The patient has kb not recently seen a physician. 18:58 Onset: The symptoms/episode began/occurred 1 week(s) ago. Possible causes: unknown. The kb symptoms are aggravated by nothing. The symptoms are alleviated by nothing. Associated signs and symptoms: Pertinent positives: abdominal pain, diarrhea, nausea, Pertinent negatives: fever. Severity of symptoms: At their worst the symptoms were moderate in the emergency department the symptoms are unchanged. The patient has not experienced similar symptoms in the past. 19:17 Pt reports nausea, diarrhea and abd pain for one week. States she came in today because kb it hasn't gotten any better. Historical: - Allergies: 15:07 Darvocet-N 100; kb3 15:07 Ketorolac; kb3 15:07 Nubain; kb3 15:07 PENICILLINS; kb3 - PMHx: 15:07 chronic back pain; cirrhosis of liver; diabetes mellitus; Hypertensive disorder; kb3 Thyroid problem; Hypercholesterolemia; - PSHx: 15:07 Appendectomy; vic knee reconstructive sx; carpal tunnel repair; Cholecystectomy; kb3 hysterectomy; - Immunization history:: Adult Immunizations up to date, Client reports receiving the 2nd dose of the Covid vaccine, Last tetanus immunization: up to date. - Social history:: Smoking status: Patient denies any tobacco usage or history of. ROS: 18:58 Constitutional: Negative for fever, chills, and weight loss. kb 18:58 Abdomen/GI: Positive for abdominal pain, nausea, diarrhea. 18:58 All other systems are negative. Exam: 18:58 Constitutional: This is a well developed, well nourished patient who is awake, alert, kb and in no acute distress. Head/Face: Normocephalic, atraumatic. ENT: Moist Mucous membranes Cardiovascular: Regular rate and rhythm with a normal S1 and S2. No gallops, murmurs, or rubs. No pulse deficits. Respiratory: Respirations even and unlabored. No increased work of breathing. Talking in full sentences Abdomen/GI: Soft, non-tender. No distention Skin: Warm, dry with normal turgor. Normal color. MS/ Extremity: Pulses equal, no cyanosis. Neurovascular intact. Full, normal range of motion. Neuro: Awake and alert, GCS 15, oriented to person, place, time, and situation. Moves all extremities. Normal gait. Psych: Awake, alert, with orientation to person, place and time. Behavior, mood, and affect are within normal limits. Vital Signs: 15:06 BP 143 / 78; Pulse 112; Resp 20; Temp 98.9; Pulse Ox 99% ; Weight 88.9 kg; Height 5 ft. kb3 2 in. (157.48 cm); Pain 10/10; 16:45 BP 148 / 82; Pulse 102; Resp 16; Pulse Ox 99% on R/A; hb 18:10 BP 147 / 90; Pulse 88; Resp 16; Pulse Ox 99% on R/A; Pain 7/10; hb 15:06 Body Mass Index 35.85 (88.90 kg, 157.48 cm) kb3 MDM: 15:11 Patient medically screened. kb 18:51 Data reviewed: vital signs, nurses notes. Data interpreted: Pulse oximetry: on room air kb is 99 %. Interpretation: normal. 19:09 Counseling: I had a detailed discussion with the patient and/or guardian regarding: the kb historical points, exam findings, and any diagnostic results supporting the discharge/admit diagnosis, lab results, radiology results, the need for outpatient follow up, a family practitioner, a budget record clerk, to return to the emergency department if symptoms worsen or persist or if there are any questions or concerns that arise at home. 19:18 ED course: Pt will follow up with GI and PCP this week if symptoms persist. kb 03/02 15:11 Order name: CBC with Diff; Complete Time: 15:46 kb 03/02 15:11 Order name: CMP; Complete Time: 16:06 kb 03/02 15:11 Order name: Lipase; Complete Time: 16:06 kb 03/02 15:11 Order name: Urine Microscopic Only; Complete Time: 16:46 kb 03/02 16:30 Order name: Urine Dipstick-Ancillary; Complete Time: 16:33 EDMS 03/02 18:08 Order name: Abdomen ; Complete Time: 19:07 EDIA 03/02 15:11 Order name: IV Saline Lock; Complete Time: 15:34 kb 03/02 15:11 Order name: Labs collected and sent; Complete Time: 15:34 kb 03/02 15:11 Order name: Urine Dipstick-Ancillary (obtain specimen); Complete Time: 16:44 kb Administered Medications: 15:34 Drug: NS 0.9% 1000 ml Route: IV; Rate: 1 bolus; Site: right antecubital; hb 16:55 Follow up: IV Status: Infusion continued; IV Intake: 1000ml hb 15:34 Drug: Pepcid (famotidine) 20 mg Route: IVP; Site: right antecubital; hb 16:46 Follow up: Response: No adverse reaction hb 15:34 Drug: Zofran (Ondansetron) 4 mg Route: IVP; Site: right antecubital; hb 16:46 Follow up: Response: No adverse reaction hb 16:56 Drug: morphine 4 mg Route: IVP; Infused Over: 4 mins; Site: right antecubital; hb 17:44 Follow up: Response: No adverse reaction hb 19:42 Drug: Bentyl (dicyclomine) 20 mg Route: PO; hb 21:00 Follow up: Response: No adverse reaction hb 19:42 Drug: Zofran (Ondansetron) 4 mg Route: IVP; Site: right antecubital; hb 21:00 Follow up: Response: No adverse reaction hb 19:42 Drug: ProTONIX (pantoprazole) 40 mg Route: IVP; Site: right antecubital; hb 21:30 Follow up: Response: No adverse reaction hb Disposition: 19:16 Co-signature as Attending Physician, Ollie RANGEL was immediately available on-site ms3 in the Emergency Department for consultation in the care of the patient. Disposition Summary: 03/02/22 19:16 Discharge Ordered Location: Home kb Condition: Stable kb Diagnosis - Diarrhea, unspecified kb Followup: kb - With: Emergency Department - When: As needed - Reason: Worsening of condition Followup: kb - With: Private Physician - When: 2 - 3 days - Reason: Recheck today's complaints, Continuance of care, Re-evaluation by your physician Discharge Instructions: - Discharge Summary Sheet kb - Food Choices to Help Relieve Diarrhea, Adult kb - Diarrhea, Adult, [id number] kb Forms: - Medication Reconciliation Form kb - Thank You Letter kb - Antibiotic Education kb - Prescription Opioid Use kb Prescriptions: - Protonix 40 mg Oral Tablet - take 1 tablet by ORAL route once daily; 30 tablet; Refills: 0, Product kb Selection Permitted - Zofran 4 mg Oral Tablet - take 1 tablet by ORAL route every 6 hours As needed; 20 tablet; Refills: 0, kb Product Selection Permitted - dicyclomine 20 mg Oral Tablet - take 1 tablet by ORAL route 4 times per day As needed; 20 tablet; Refills: 0, kb Product Selection Permitted Signatures: Dispatcher [employer] Marybel Carty, [employer]-C [employer]-Aurelianob Donna Santos, RN RN Ollie Cutler, DO ms3 Opal Ríos, RN RN kb3
--- NOTE | 2022-03-02 19:16 | ER ---
Nurse's Notes [facility] Name: Sita Delgado Age: 62 yrs Sex: Female : 1960 Arrival Date: 03/02/2022 Time: 15:01 Bed 11 Private MD: Diagnosis: Diarrhea, unspecified Presentation: 03/02 15:06 Chief complaint: Patient states: upper abdominal pain, nausea, diarrhea with dark stool kb3 x1 week. Coronavirus screen: Vaccine status: Patient reports receiving the 2nd dose of the covid vaccine. Client denies travel out of the [place] in the last 14 days. Ebola Screen: Patient negative for fever greater than or equal to 101.5 degrees Fahrenheit, and additional compatible Ebola Virus Disease symptoms Patient denies exposure to infectious person. Patient denies travel to an Ebola-affected area in the 21 days before illness onset. Initial Sepsis Screen: Does the patient meet any 2 criteria? No. Patient's initial sepsis screen is negative. Does the patient have a suspected source of infection? No. Patient's initial sepsis screen is negative. Risk Assessment: Do you want to hurt yourself or someone else? Patient reports no desire to harm self or others. Onset of symptoms was February 23, 2022. 15:06 Method Of Arrival: Ambulatory kb3 15:06 Acuity: KATARINA 3 kb3 Triage Assessment: 15:07 General: Appears in no apparent distress. uncomfortable, Behavior is calm, cooperative. kb3 Pain: Complains of pain in epigastric area, right upper quadrant and left upper quadrant Pain does not radiate. Pain currently is 10 out of 10 on a pain scale. Quality of pain is described as squeezing, Pain began 1 week. GI: Reports upper abdominal pain, diarrhea, bloody stool, nausea. Historical: - Allergies: 15:07 Darvocet-N 100; kb3 15:07 Ketorolac; kb3 15:07 Nubain; kb3 15:07 PENICILLINS; kb3 - PMHx: 15:07 chronic back pain; cirrhosis of liver; diabetes mellitus; Hypertensive disorder; kb3 Thyroid problem; Hypercholesterolemia; - PSHx: 15:07 Appendectomy; vic knee reconstructive sx; carpal tunnel repair; Cholecystectomy; kb3 hysterectomy; - Immunization history:: Adult Immunizations up to date, Client reports receiving the 2nd dose of the Covid vaccine, Last tetanus immunization: up to date. - Social history:: Smoking status: Patient denies any tobacco usage or history of. Screenin:35 Abuse screen: Denies threats or abuse. Denies injuries from another. Nutritional hb screening: No deficits noted. Tuberculosis screening: No symptoms or risk factors identified. Fall Risk None identified. Assessment: 15:35 General: Appears in no apparent distress. Behavior is calm, cooperative. Pain: Pain hb currently is 9 out of 10 on a pain scale. Neuro: Level of Consciousness is awake, alert, obeys commands, Oriented to person, place, time, situation. Cardiovascular: Patient's skin is warm and dry. Respiratory: Respiratory effort is even, unlabored, Respiratory pattern is regular, symmetrical. GI: Reports upper abdominal pain, diarrhea, nausea, vomiting. : No signs and/or symptoms were reported regarding the genitourinary system. EENT: No signs and/or symptoms were reported regarding the EENT system. Derm: Skin is pink, warm \T\ dry. Musculoskeletal: No signs and/or symptoms reported regarding the musculoskeletal system. 17:45 Reassessment: Patient appears in no apparent distress at this time. Patient and/or hb family updated on plan of care and expected duration. Pain level reassessed. Patient is alert, oriented x 3, equal unlabored respirations, skin warm/dry/pink. 19:00 Reassessment: Patient appears in no apparent distress at this time. Patient and/or hb family updated on plan of care and expected duration. Pain level reassessed. Patient is alert, oriented x 3, equal unlabored respirations, skin warm/dry/pink. Vital Signs: 15:06 BP 143 / 78; Pulse 112; Resp 20; Temp 98.9; Pulse Ox 99% ; Weight 88.9 kg; Height 5 ft. kb3 2 in. (157.48 cm); Pain 10/10; 16:45 BP 148 / 82; Pulse 102; Resp 16; Pulse Ox 99% on R/A; hb 18:10 BP 147 / 90; Pulse 88; Resp 16; Pulse Ox 99% on R/A; Pain 7/10; hb 15:06 Body Mass Index 35.85 (88.90 kg, 157.48 cm) kb3 ED Course: 15:01 Patient arrived in ED. jl7 15:04 [facility] kb 15:04 Ollie Cutler DO is Attending Physician. kb 15:07 Triage completed. kb3 15:07 Arm band placed on left wrist. kb3 15:23 Donna Santos, RN is Primary Nurse. hb 15:32 Inserted saline lock: 20 gauge in right antecubital area, using aseptic technique. hb Blood collected. 18:29 Abdomen In Process Unspecified. EDMS 19:35 Patient has correct armband on for positive identification. hb 19:35 No provider procedures requiring assistance completed. IV discontinued, intact, hb bleeding controlled, No redness/swelling at site. Administered Medications: 15:34 Drug: NS 0.9% 1000 ml Route: IV; Rate: 1 bolus; Site: right antecubital; hb 16:55 Follow up: IV Status: Infusion continued; IV Intake: 1000ml hb 15:34 Drug: Pepcid (famotidine) 20 mg Route: IVP; Site: right antecubital; hb 16:46 Follow up: Response: No adverse reaction hb 15:34 Drug: Zofran (Ondansetron) 4 mg Route: IVP; Site: right antecubital; hb 16:46 Follow up: Response: No adverse reaction hb 16:56 Drug: morphine 4 mg Route: IVP; Infused Over: 4 mins; Site: right antecubital; hb 17:44 Follow up: Response: No adverse reaction hb 19:42 Drug: Bentyl (dicyclomine) 20 mg Route: PO; hb 21:00 Follow up: Response: No adverse reaction hb 19:42 Drug: Zofran (Ondansetron) 4 mg Route: IVP; Site: right antecubital; hb 21:00 Follow up: Response: No adverse reaction hb 19:42 Drug: ProTONIX (pantoprazole) 40 mg Route: IVP; Site: right antecubital; hb 21:30 Follow up: Response: No adverse reaction hb Medication: 19:35 VIS not applicable for this client. hb Intake: 16:55 IV: 1000ml; Total: 1000ml. hb Outcome: 19:16 Discharge ordered by MD. kb 19:35 Discharged to home hb 19:35 Condition: stable 19:35 Discharge instructions given to patient, Instructed on discharge instructions, follow up and referral plans. medication usage, Demonstrated understanding of instructions, follow-up care. 19:43 Patient left the ED. hb Signatures: Dispatcher [employer] EDMS Marybel Bella, SOFTWARE APPLICATIONS DESIGNER-C SOFTWARE APPLICATIONS DESIGNER-Donna Park, RN RN Kera Choi RN RN jl7 Opal Ríos RN RN kb3 Corrections: (The following items were deleted from the chart) 22:24 21:00 No provider procedures requiring assistance completed. hb hb 22:24 21:00 IV discontinued, intact, bleeding controlled, No redness/swelling at site. hb hb
[2022-03-02] MEDS ORDERED: DICYCLOMINE HCL 10 MG CAP ONE (19:29)
[2022-03-02] MEDS ORDERED: PANTOPRAZOLE 40 MG INJ ONE (19:30)
[2022-03-02 20:46] VITALS: TEMP 98.9; O2SAT 99
[2022-03-02 20:49] VITALS: BP 147/90
== END 2022-03-02 19:43 | disposition home or self-care (01) ==
LOC: ER 14:58
DX: R19.7 Diarrhea, unspecified (principal); R11.0 Nausea; Z88.0 Allergy status to penicillin; Z88.5 Allergy status to narcotic agent; Z88.8 Allergy status to other drugs, medicaments and biological substances
CPT/HCPCS: 96361; 85025; 36415; 83690; 80053; 74177; 96375; 96374; 99284; Q9967; C9113; J7030; J2405 ×2; 81003; 81015

== ENCOUNTER 2022-04-12 17:26 | Emergency (ER) | payer OTHER ==
--- OUTSIDE RECORDS SUMMARY | 2022-04-12 17:43 | XMS REPORT | Continuity of Care Document ---
:1960 Author Organization [facility] t Address [address] [place] [address] Care Team Providers Name Role Phone PCP, PATIENT DOES NOT HAVE A Primary Care Physician Unavaila JULIA Spaulding Attending Clinician Unavailable Chad Garcia DO Attending Clinician CHAD GARCIA Attending Clinician Unavailable CHAD GARCIA Attending Clinician Unavailable EREN OCHOA Attending Clinician Unavailable EREN OCHOA Attending Clinician Unavailable YOVANA ROD Attending Clinician Unavailable Yovana Rod DO Attending Clinician JULIA BUTTERFIELD Attending Clinician Unavailable CHAD GARCIA Admitting Clinician Unavailable YOVANA ROD Admitting Clinician Unavailable Payers Payer Name Policy Type Policy Number Effective Date Expiration Date Emil jones [facility] [employer] [id number] 2021 00:00:00 Problems Condition Condition Condition Status Onset Resolution Last Treating Co mments Source Name Details Category Date Date Treatment Clinician Date No known No known Disease Unive rs active active ity of problems problems [facility] Allergies, Adverse Reactions, Alerts Allergy Allergy Status [...] Medical Branch n Propensi Active ty to 6 adverse 00:00: reaction 00 to drug Bactrim Propensi Active - Oral ty to 4- adverse 00:00: reaction 00 to drug NO KNOWN Drug Active Univers ALLERGIE Class ity of [facility] Social History Social Habit Start Date Stop Date Quantity Comments Source ASSERTION [facility] Exposure to 2022-01-29 2022-02-08 Not sure [facility] SARS-CoV-2 (event) 00:00:00 07:25:00 Medica l Branch Sex Ass[birth year] [facility] 00:00:00 00:00:00 Medical Branch Smoking Status Start Date Stop Date Source Tobacco smoking consumption [facility] Branch Medications Ordered Filled Start Stop Current Ordering Indication Dosage Frequency Signature Comments Components Source Medication Medication Date Date Medication? Clinician (SIG) Name Name TAKE 2021-04 No 30unit TABLET 2-16 DAILY 00:00: DIRECTED. 00 TAKE 2021-04 No TABLET BY 2-16 MOUTH EVERY 00:00: 8 HOURS 00 NEEDED FOR ACUTE PAIN HYDROXYZINE 2021-04 No 30 HYDROCHLORI 2-16 DE 25 MG 00:00: TABS 00 Dose 2021-04 No 30 Unknown 2-16 00:00: 00 Dose 2021-04 No 30 Unknown 2-16 00:00: 00 TAKE 2021-04 No 30 TABLET BY 2-16 MOUTH ONCE 00:00: A DAY WITH 00 MEALS TAKE 2021-04 No TABLET BY 2-16 MOUTH EVERY 00:00: 6 HOURS 00 NEEDED FOR PAIN DUE 02/14 TAKE 2021-04 No 30 CAPSULE BY 2-16 MOUTH DAILY 00:00: 30 MINUTES 00 BEFORE BREAKFAST TAKE 2021-04 No TABLET 2-14 DAILY. 00:00: 00 TAKE 1 2021-04 No TABLET 2-14 DAILY WITH 00:00: BREAKFAST. 00 TAKE 1 2021-04 No 50 TABLET BY 2-14 MOUTH EVERY 00:00: 4 TO 6 00 HOURS NEEDED Dose 2021-04 No Unknown 2-14 00:00: 00 Dose 2021-04 No Unknown 2-14 00:00: 00 TAKE 1 2021-04 No TABLET BY 2-14 MOUTH EVERY 00:00: 6 HOURS 00 NEEDED FOR PAIN AZITHROMYCI 2021-04 No 30 N 250 MG 2-14 TABS 00:00: 00 Dose 2021-04 No Unknown 2-14 00:00: 00 Dose 2021-04 No 30 Unknown 2-14 00:00: 00 Dose 2021-04 No Unknown 2-14 00:00: 00 Dose 2021-04 No Unknown 2-14 00:00: 00 CYCLOBENZAP 2021-04 No 30 RINE 2-14 HYDROCHLORI 00:00: DE 10 MG 00 TABS Dose 2021-04 No 5 Unknown 2-14 00:00: 00 TAKE 1 2021-04 No 30 TABLET BY 2-14 MOUTH 2 00:00: TIMES A DAY 00 NEEDED ONDANSETRON 2021-04 No 30 HYDROCHLORI 2-14 DE 4 MG 00:00: TABS 00 TAKE 1 2021-04 No 20 TABLET BY 2-14 MOUTH EVERY 00:00: DAY 00 DIRECTED Dose 2021-04 No Unknown 2-14 00:00: 00 Dose 2021-04 No 30 Unknown 2-14 00:00: 00 Dose 2021-04 No 30 Unknown 2-14 00:00: 00 Dose 2021-04 No Unknown 2-14 00:00: 00 OMEPRAZOLE 2021-04 No 40 MG CPDR 2-14 00:00: 00 Dose 2021-04 No 30 Unknown 2-14 00:00: 00 Dose 2021-04 No 30 Unknown 2-14 00:00: 00 Dose 2021-04 No 30 Unknown 2-14 00:00: 00 Dose 2021-04 No Unknown 2-14 00:00: 00 Dose 2021-04 No 30 Unknown 2-14 00:00: 00 NITROFURANT 2021-04 No 5 OIN 2-14 MONOHYDRATE 00:00: /MACROCRY 00 STALS 100 MG CAPS Dose 2021-04 No Unknown 2-14 00:00: 00 LANSOPRAZOL 2021-04 No 2 E 30 MG 2-14 CPDR 00:00: 00 IBUPROFEN 2021-04 No 30 600 MG TABS 2-14 00:00: 00 TAKE 2021-04 No 30 TABLET BY 2-14 MOUTH EVERY 00:00: 12 HOURS 00 FOR 10 DAYS UNITHROID 2021-04 No 30 150 MCG 2-14 TABS 00:00: 00 TAKE 2021-04 No 30 TABLET BY 2-14 MOUTH 00:00: DIRECTED 1 00 UNIT DIRECTED USED DIRECTED BY YOUR COLONOSCOPY PACKET INSTRUCTION S LEVOTHYROXI 2021-04 No 30 NE SODIUM 2-14 300 MCG 00:00: TABS 00 TAKE 2021-04 No 30 TABLET BY 2-14 MOUTH EVERY 00:00: DAY AT 00 BEDTIME NEEDED FOR INSOMNIA OXYCODONE/A 2021-04 No CETAMINOPHE 2-14 N 10-325 MG 00:00: TABS 00 GLIMEPIRIDE 2021-04 No 30 1 MG TABS 2-14 00:00: 00 IBUPROFEN 2021-04 No 30 800 MG TABS 2-14 00:00: 00 Dose 2021-04 No 30 Unknown 2-14 00:00: 00 CITALOPRAM 2021-04 No 30 HYDROBROMID 2-14 E 20 MG 00:00: TABS 00 TAKE 2021-04 No 30 TABLET BY 2-14 MOUTH EVERY 00:00: DAY 00 CEFPODOXIME 2021-04 No 30 PROXETIL 2-14 200 MG TABS 00:00: 00 KETOCONAZOL 2021-04 No 30 E 2 % CREA 2-14 00:00: 00 TAKE 2021-04 No CAPSULE 1-21 WEEKLY. 00:00: 00 TAKE 2021-04 No 30unit CAPSULE 1-21 WEEKLY. 00:00: 00 HYDROXYZINE 2021-04 No HCL 50 MG 1-15 TABS 00:00: 00 HYDROXYZINE 2021-04 No HCL 50 MG 1-15 TABS 00:00: 00 Dose 2021-04 No 5 Unknown 1-15 00:00: 00 HYDROcodone 2021-04- No 1{tbl} 1 tablet, Univers -acetaminop - 11-05 Oral, ity of hen (NORCO 12:45: 12:48 ONCE, 1 [place] 5) 5-325 mg 00 :00 dose, On Medi [place] tablet 1 Sat Branch tablet 02/08/22 at 0745, [place] HYDROcodone 2021-04- Yes 4647 1{tbl} Take 1 U nivers -acetaminop 04-10 11-13 tablet by it y of hen 5-325 00:00: 05:59 mouth [place] mg tablet 00 :00 every 4 Medical (four) Branch hours as needed for Pain (scale 1-3) for up to 7 days. Indication s: acute pain METFORMIN 2021-04 No HYDROCHLORI 0-31 DE 1000 MG 00:00: TABS 00 METFORMIN 2021-04 No HYDROCHLORI 0-31 DE 1000 MG 00:00: TABS 00 METFORMIN 2021-04 No HYDROCHLORI 0-31 DE 1000 MG 00:00: TABS 00 MORPHINE 2021-04 No 30 SUL 30MG ER 0-24 Tablets 00:00: 00 MORPHINE 2021-04 No 30 SUL 30MG ER 0-24 Tablets 00:00: 00 TAKE 1 2021-04 No TABLET BY 0-24 MOUTH DAILY 00:00: AT NIGHT 00 LISINOPRIL 2021-04 No 5 MG TABS 0-11 00:00: 00 LISINOPRIL 2021-04 No 5 MG TABS 0-11 00:00: 00 LISINOPRIL 1 No 5 MG TABS 0-11 00:00: 00 LISINOPRIL 1 No 5 MG TABS 0-11 00:00: 00 UNITHROID 2021-0 No 75 MCG TABS 9-26 00:00: 00 UNITHROID 2021-0 No 75 MCG TABS 9-26 00:00: 00 UNITHROID 2021-0 No 75 MCG TABS 9-26 00:00: 00 Dose 2021-0 No 30 Unknown 12-30 00:00: 00 HUMULIN 2-0 No 70/30 - KWIKPEN 00:00: (70-30) 100 00 UNIT/ML SUPN Dose 2021-0 No Unknown 12-27 00:00: 00 Dose 2021-0 No Unknown 12-27 00:00: 00 HUMULIN 2-0 No 30 70/30 9-23 KWIKPEN 00:00: (70-30) 100 00 UNIT/ML SUPN HYDROcodone 2-0 2- No 1{tbl} 1 tablet, Univers -acetaminop 12-17 Oral, ity of hen (NORCO) 05:52: 05:58 [place] 10-325 mg 00 :00 dose, On Medica l tablet 1 Tue Branch tablet 12/17/21 at 0100, [place] MORPHINE 2-0 No 30 SULFATE ER 8-22 30 MG TBCR 00:00: 00 MORPHINE 2-0 No 30 SULFATE ER 8-22 30 MG TBCR 00:00: 00 MORPHINE 2-0 No 30 SULFATE ER 8-22 30 MG TBCR 00:00: 00 MORPHINE 2-0 No SULFATE ER 8-22 30 MG TBCR 00:00: 00 MORPHINE 2-0 No 30 SULFATE ER 8-22 30 MG TBCR 00:00: 00 TRINTELLIX 2-0 No 20 MG TABS 8-18 00:00: 00 TRINTELLIX 2022-0 No 20 MG TABS 8-18 00:00: 00 TRINTELLIX 2022-0 No 20 MG TABS 8-18 00:00: 00 TRINTELLIX 2022-0 No 20 MG TABS 8-18 00:00: 00 TRINTELLIX 2022-0 No 20 20 MG TABS 8-18 00:00: [...] Unknown 8-10 00:00: 00 Dose 2022-0 No 30 Unknown 8-10 00:00: 00 METOCLOPRAM 2022-0 No RHODA 8-10 HYDROCHLORI 00:00: DE 10 MG 00 TABS Dose 2022-0 No 30 Unknown 8-10 00:00: 00 MIRTAZAPINE 2022-0 No 15 MG TABS 8-10 00:00: 00 Dose 2022-0 No 30 Unknown 8-10 00:00: 00 Dose 2022-0 No 25 Unknown 8-10 00:00: 00 &lt 2022-0 No 10 8-10 00:00: 00 Dose 2022-0 No Unknown 8-10 00:00: 00 Dose 2022-0 No 15 Unknown 8-10 00:00: 00 Dose 2022-0 No 5 Unknown 8-10 00:00: 00 Dose 2022-0 No Unknown 8-10 00:00: 00 &lt 2022-0 No 10 8-10 00:00: 00 Dose 2022-0 No 4 Unknown 729 00:00: 00 Dose 2022-0 No 10 Unknown 7 00:00: 00 Dose 2022-0 No 4 Unknown 7 00:00: 00 Dose 2022-0 No Unknown 7 00:00: 00 Dose 2022-0 No 4 Unknown 7 00:00: 00 Dose 2022-0 No Unknown 7 00:00: 00 Dose 2022-0 No 30 Unknown 7 00:00: 00 ATORVASTATI 2022-0 No N CALCIUM 7-29 10 MG TABS 00:00: 00 Dose 2022-0 No 4 Unknown [...] 2022-0 No Unknown 7- 00:00: 00 metoclopram 2-0 No 1mg rhoda 10 mg 7-21 tablet 00:00: 00 ferrous 2-0 No 1(65 mg sulfate 325 - iron) mg (65 mg 00:00: iron) 00 tablet omeprazole 2021-0 No 1mg 40 mg 7- capsule,del 00:00: ayed 00 release TAKE 1 2021-0 No 1000 TABLET 7- TWICE 00:00: DAILY. 00 TAKE 1 2021-0 No 500 TABLET BY 7- MOUTH EVERY 00:00: 8 HOURS FOR 00 10 DAYS &lt 2022-0 No 250 7- 00:00: 00 &lt 2022-0 No 10 7- 00:00: 00 &lt 2022-0 No 25 7- 00:00: 00 &lt 2022-0 No 7-21 00:00: 00 &lt 2022-0 No 7-21 00:00: 00 TAKE 1 2021-0 No 1000 TABLET 7- TWICE 00:00: DAILY. 00 Dose 2-0 No Unknown 7- 00:00: 00 Dose 2022-0 No Unknown 7- 00:00: 00 citalopram 2-0 No 1mg 20 mg 7-21 tablet 00:00: 00 Dose 2022-0 No Unknown 7- 00:00: 00 Dose 2022-0 No Unknown 7- 00:00: 00 Dose 2022-0 No Unknown 7- 00:00: 00 metoclopram 2-0 No 1mg rhoda 10 mg 7-21 tablet 00:00: 00 Dose 2022-0 No Unknown 7- 00:00: 00 Dose 2022-0 No Unknown 7- 00:00: 00 TAKE 1 2-0 No 1000 TABLET 7- TWICE 00:00: DAILY. 00 TAKE 1 2021-0 No 500 TABLET BY 7- MOUTH EVERY 00:00: 8 HOURS FOR 00 10 DAYS &lt 2022-0 No 250 7-21 00:00: 00 &lt 2022-0 No 10 7-21 00:00: 00 &lt 2022-0 No 25 7-21 00:00: 00 &lt 2022-0 No 7-21 00:00: 00 &lt 2022-0 No 7-21 00:00: 00 TAKE 1 2-0 No 1000 TABLET 7-21 TWICE 00:00: DAILY. 00 Dose 2022-0 No Unknown 7- 00:00: 00 Dose 2022-0 No Unknown 7- 00:00: 00 citalopram 2022-0 No 1mg 20 mg 7-21 tablet 00:00: 00 Dose 2022-0 No Unknown 7- 00:00: 00 Dose 2022-0 No Unknown 7- 00:00: 00 Dose 2022-0 No Unknown 7 00:00: 00 metoclopram 2022-0 No 1mg rhoda 10 mg 7-21 tablet 00:00: 00 Dose 2022-0 No Unknown 7 00:00: 00 Dose 2022-0 No Unknown 7- 00:00: 00 TAKE 1 2-0 No 1000 TABLET 7- TWICE 00:00: DAILY. 00 TAKE 1 2-0 No 500 TABLET BY 7- MOUTH EVERY 00:00: 8 HOURS FOR 00 10 DAYS &lt 2022-0 No 250 7- 00:00: 00 &lt 2022-0 No 10 7-21 00:00: 00 &lt 2022-0 No 25 7- 00:00: 00 &lt 2022-0 No 7-21 00:00: 00 &lt 2022-0 No 7-21 00:00: 00 TAKE 1 2-0 No 1000 TABLET 7- TWICE 00:00: DAILY. 00 TAKE 1 2-0 No 30unit TABLET 7-21 DAILY 00:00: DIRECTED. 00 TAKE 1 2-0 No TABLET 7-21 DAILY WITH 00:00: BREAKFAST. 00 citalopram 2-0 No 1mg 20 mg 7-21 tablet 00:00: 00 Dose 2022-0 No 30 Unknown 7- 00:00: 00 Dose 2022-0 No Unknown 7- 00:00: 00 Dose 2022-0 No 5 Unknown 7 00:00: 00 Dose 2022-0 No 30 Unknown 7 00:00: 00 Dose 2022-0 No 30 Unknown 10-24 00:00: 00 Dose 2022-0 No 30 Unknown 10-24 00:00: 00 TAKE 1 2021-0 No 1000 TABLET 10-24 TWICE 00:00: DAILY. 00 TAKE 1 2021-0 No 500 TABLET BY 7- MOUTH EVERY 00:00: 8 HOURS FOR 00 10 DAYS &lt 2022-0 No 250 7- 00:00: 00 &lt 2022-0 No 10 7- 00:00: 00 &lt 2022-0 No 25 7- 00:00: 00 &lt 2022-0 No 7-21 00:00: 00 &lt 2022-0 No 7- 00:00: 00 TAKE 1 2021-0 No 1000 TABLET 10-24 TWICE 00:00: DAILY. 00 lisinopril 2021-0 No 1mg 5 mg tablet 10-24 00:00: 00 Myrbetriq 2-0 No 1mg 25 mg - tablet,exte 00:00: nded 00 release citalopram 2021-0 No 1mg 20 mg - tablet 00:00: 00 atorvastati 2-0 No 1mg n 10 mg - tablet 00:00: 00 metformin 2-0 No 1mg 1,000 mg - tablet 00:00: 00 glimepiride 2021-0 No 1mg 1 mg tablet 10-24 00:00: 00 metoclopram 2-0 No 1mg rhoda 10 mg - tablet 00:00: 00 ferrous [...] 7- 00:00: 00 &lt 2022-0 No 25 7-21 00:00: 00 &lt 2022-0 No 7-21 00:00: 00 &lt 2022-0 No 7-21 00:00: 00 TAKE 1 2021-0 No 1000 TABLET 7-21 TWICE 00:00: DAILY. 00 lisinopril 2-0 No [...] 10-24 00:00: 00 metoclopram 2-0 No 1mg rhoda 10 mg 7- tablet 00:00: 00 ferrous 2022-0 No 1(65 mg sulfate 325 - iron) mg (65 mg 00:00: iron) 00 tablet omeprazole 2021-0 No 1mg 40 mg - capsule,del 00:00: ayed 00 release TAKE 1 2021-0 No 1000 TABLET 7- TWICE 00:00: DAILY. 00 TAKE 1 2021-0 No 500 TABLET BY 7- MOUTH EVERY 00:00: 8 HOURS FOR 00 10 DAYS &lt 2022-0 No 250 7-21 00:00: 00 &lt 2022-0 No 10 7-21 00:00: 00 &lt 2022-0 No 25 7-21 00:00: 00 &lt 2022-0 No 7-21 00:00: 00 &lt 2022-0 No 7-21 00:00: 00 TAKE 1 2021-0 No 1000 TABLET 7- TWICE 00:00: DAILY. 00 Dose 2-0 No 5 Unknown 7-20 00:00: 00 Dose 2022-0 No 5 Unknown 7-20 00:00: 00 Dose 2022-0 No 5 Unknown 7-20 00:00: 00 Dose 2022-0 No 5 Unknown 7-20 00:00: 00 Dose 2022-0 No 5 Unknown 7-20 00:00: 00 Dose 2022-0 No 5 Unknown 7-20 00:00: 00 HYDROcodone 2022-0 2022- No 1{tbl} 1 tablet, Univers -acetaminop 10-1916 Oral, ity of hen ([facility]CO) 06:30: 05:28 [place] 10-325 mg 00 :00 dose, On Medica l tablet 1 Sat Branch tablet 10/19/21 at 0130, Routine No known 2021-0 No No known Unive rs medications 10-19 medication it y of 04:06: s [address] TAKE 1 2021-0 No 500 TABLET [...] 2022-0 No 7- 00:00: 00 TAKE 1 2-0 No TABLET BY 7-13 MOUTH DAILY 00:00: 00 &lt 2022-0 No 7-13 00:00: 00 &lt 2022-0 No 20 7-13 00:00: 00 Dose 2022-0 No 50 Unknown 7- 00:00: 00 TAKE 1 2022-0 No 500 TABLET BY 7-13 MOUTH EVERY 00:00: 8 HOURS FOR 00 10 DAYS Dose 2022-0 No 20 Unknown 7- 00:00: 00 Dose 2022-0 No 10 Unknown 7- 00:00: 00 &lt 2022-0 No 25 [...] 00:00: 00 Dose 2022-0 No 10 Unknown 7- 00:00: 00 &lt 2022-0 No 25 [...] 00:00: 00 Dose 2022-0 No 10 Unknown 7- 00:00: 00 &lt 2022-0 No 25 [...] Unknown 7 00:00: 00 &lt 2022-0 No 7-13 00:00: [...] 00:00: 00 Dose 2022-0 No 10 Unknown 7- 00:00: 00 &lt 2022-0 No 25 7- 00:00: 00 DISSOLVE 1 2022-0 No 4 TABLET BY 7-13 MOUTH EVERY 00:00: 8 HOURS 00 NEEDED &lt 2022-0 No 7-13 00:00: 00 TAKE 1 2022-0 No 1000 TABLET 7-13 TWICE 00:00: DAILY. 00 &lt 2022-0 No 10 7-13 00:00: 00 &lt 2022-0 No 15 7 00:00: 00 &lt 2022-0 No 5 7- 00:00: 00 TAKE 1 2022-0 No 5 TABLET BY 7-13 MOUTH TWICE 00:00: A DAY 00 NEEDED FOR ANXIETY Dose 2022-0 No Unknown 7 00:00: 00 &lt 2022-0 No 7-13 00:00: [...] 8 HOURS 00 NEEDED &lt 2022-0 No 7-06 00:00: 00 &lt 2022-0 No 30 7- 00:00: 00 TAKE 1 2022-0 No 30 TABLET BY 7-06 MOUTH AT 00:00: BEDTIME 00 &lt 2022-0 No 10-09 00:00: 00 Dose 2022-0 No 50 Unknown 10-09 00:00: 00 &lt 2022-0 No 20 10-09 00:00: 00 &lt 2022-0 No 10-09 00:00: 00 TAKE 1 2022-0 No [id number] TABLET 10-09 TWICE 00:00: DAILY. 00 &lt [...] 10-09 00:00: 00 TAKE 1 2022-0 No [id number] TABLET 10-09 TWICE 00:00: DAILY. 00 &lt [...] 10-09 00:00: 00 TAKE 1 2022-0 No [id number] TABLET 10-09 TWICE 00:00: DAILY. 00 &lt 2022-0 No 25 10-09 00:00: 00 TAKE 1 2022-0 No 500 TABLET BY - MOUTH EVERY [...] 10-09 00:00: 00 TAKE 1 2022-0 No [id number] TABLET 10-09 TWICE 00:00: DAILY. 00 &lt [...] 10-09 00:00: 00 TAKE 1 2022-0 No [id number] TABLET 10-09 TWICE 00:00: DAILY. 00 &lt [...] 10-09 00:00: 00 TAKE 1 2022-0 No [id number] TABLET 10-09 TWICE 00:00: DAILY. 00 &lt [...] No 6-29 00:00: 00 &lt 2022-0 No 6- 00:00: 00 TAKE 1 2022-0 No TABLET BY 6-29 MOUTH EVERY 00:00: 8 HOURS FOR 10 DAYS TAKE 1 2022-0 No TABLET BY 6-29 MOUTH EVERY 00:00: 8 HOURS FOR 10 DAYS &lt 2022-0 No 6-29 00:00: 00 &lt 2022-0 No 6- 00:00: 00 &lt 2022-0 No 6-29 00:00: 00 &lt 2022-0 No 6-29 00:00: 00 TAKE 1 2022-0 No TABLET BY 6-29 MOUTH EVERY 00:00: 8 HOURS FOR 00 10 DAYS TAKE 1 2022-0 No TABLET BY 6-29 MOUTH EVERY 00:00: 8 HOURS FOR 10 &lt 2022-0 No 6-29 00:00: 00 &lt [...] 2022-0 No 6-29 00:00: 00 TAKE ONE 2-0 No (1) [...] TAKE ONE 2-0 No (1) TO TWO 27 (2) 00:00: TABLET(S) 00 BY MOUTH EVERY 6 HOURS NEEDED FOR PAIN , NO MORE THAN 8 TABLETS IN 24 HOURS. &lt 2022-0 No 627 00:00: 00 &lt 2022-0 No 627 00:00: 00 &lt 2022-0 No 627 00:00: 00 &lt 2022-0 No 627 00:00: 00 &lt 2022-0 No 627 00:00: 00 TAKE ONE 2-0 No (1) TO TWO 27 (2) 00:00: [...] Dose 2022-0 No Unknown 6-23 00:00: 00 Dose 2022-0 No Unknown 6-23 00:00: 00 Dose 2022-0 No Unknown 6-23 00:00: 00 Dose 2022-0 No 30 Unknown 6-23 00:00: 00 Dose 2022-0 No 30 Unknown 6-23 00:00: 00 Dose 2022-0 No 30 Unknown 6-23 00:00: 00 metformin 2022-0 No 1mg 1,000 [...] tablet 00:00: 00 metoclopram 2022-0 No 1mg rhoda 10 mg 4-29 tablet 00:00: 00 Myrbetriq 2022-0 No 1mg 25 mg 4-29 tablet,exte 00:00: nded 00 release hydroxyzine 2022-0 No 1mg HCl 50 mg 4-29 tablet 00:00: 00 lisinopril 2022-0 No 1mg 5 mg tablet 4- 00:00: 00 Dose 2022-0 No Unknown 4-29 00:00: 00 metoclopram 2022-0 No 1mg rhoda 10 mg 4-29 tablet 00:00: 00 Myrbetriq 2022-0 No 1mg 25 mg 4-29 tablet,exte 00:00: nded 00 release hydroxyzine 2022-0 No 1mg HCl 50 mg 4-29 tablet 00:00: 00 lisinopril 2022-0 No 1mg 5 mg tablet 4- 00:00: 00 Dose 2022-0 No Unknown 4-29 00:00: 00 metoclopram 2022-0 No 1mg rhoda 10 mg 4-29 tablet 00:00: 00 Myrbetriq 2022-0 No 1mg 25 mg 4-29 tablet,exte 00:00: nded 00 release lisinopril 2022-0 No 1mg 5 mg tablet 4-29 00:00: 00 metoclopram 2022-0 No 1mg rhoda 10 mg 4-29 tablet 00:00: 00 Dose 2022-0 No 30 Unknown 4-29 00:00: 00 Dose 2022-0 No 30 Unknown 4-29 00:00: 00 Myrbetriq 2022-0 No 1mg 25 mg 4-29 tablet,exte 00:00: nded 00 release hydroxyzine 2022-0 No 1mg HCl 50 mg 4-29 tablet 00:00: 00 lisinopril 2022-0 No 1mg 5 mg tablet 4-29 00:00: 00 metformin 2022-0 No 1mg 1,000 mg 4-29 tablet 00:00: 00 metoclopram 2022-0 No 1mg rhoda 10 mg 4-29 tablet 00:00: 00 Myrbetriq 2022-0 No 1mg 25 mg 4-29 tablet,exte 00:00: nded 00 release hydroxyzine 2022-0 No 1mg HCl 50 mg 4-29 tablet 00:00: 00 lisinopril 2022-0 No 1mg 5 mg tablet 4- 00:00: 00 metformin 2022-0 No 1mg 1,000 mg 4-29 tablet 00:00: 00 metoclopram 2022-0 No 1mg rhoda 10 mg 4-29 tablet 00:00: 00 Myrbetriq 2022-0 No 1mg 25 mg 4-29 tablet,exte 00:00: nded 00 release hydroxyzine 2-0 No 1mg HCl 50 mg 4-29 tablet 00:00: 00 lisinopril 2022-0 No 1mg 5 mg tablet 4-29 00:00: 00 metformin 2022-0 No 1mg 1,000 mg 4-29 tablet 00:00: 00 metoclopram 2022-0 No 1mg rhoda 10 mg 4-29 tablet 00:00: 00 citalopram [...] 2022-0 No Unknown 4-27 00:00: 00 levothyroxi 2-0 [...] Dose 2022-0 No Unknown 4-27 00:00: 00 Dose 2022-0 No Unknown 4-27 00:00: 00 Dose 2022-0 No Unknown 4-27 00:00: 00 Dose 2022-0 No Unknown 4-27 00:00: 00 ferrous 2022-0 No 1(65 mg sulfate 325 4-27 iron) mg (65 mg 00:00: iron) 00 tablet omeprazole 2-0 No 1mg 40 mg 4-27 capsule,del 00:00: ayed 00 release TAKE 1 2-0 No TABLET 4-27 DAILY WITH 00:00: BREAKFAST. 00 citalopram 2-0 No 1mg 20 mg 4-27 tablet 00:00: 00 atorvastati 2022-0 No 1mg n 10 mg 4-27 tablet 00:00: 00 ferrous 2022-0 No 1(65 mg sulfate 325 4-27 iron) mg (65 mg 00:00: iron) 00 tablet Dose 2-0 No 30 Unknown 4-27 00:00: 00 Dose 2022-0 No 30 Unknown 4-27 00:00: 00 Dose 2022-0 No 30 Unknown 4-27 00:00: 00 omeprazole 2-0 No 1mg 40 mg 4-27 capsule,del 00:00: ayed 00 release citalopram 2022-0 No 1mg 20 mg 4-27 tablet 00:00: 00 atorvastati 2022-0 No 1mg n 10 mg 4-27 tablet 00:00: 00 glimepiride 2-0 No 1mg 1 mg tablet 27 00:00: [...] glimepiride 2-0 No 1mg 1 mg tablet 27 00:00: [...] 10 mg 4-27 tablet 00:00: 00 Dose 2021-0 No Unknown 4-27 00:00: 00 levothyroxi 2021-0 No 1mcg ne 75 mcg 4-27 tablet 00:00: 00 levothyroxi 2021-0 No 1mcg ne 200 mcg 4-27 tablet 00:00: 00 levothyroxi 2021-0 No 1mcg ne 300 mcg 4-27 tablet 00:00: 00 ferrous 2021-0 No 1(65 mg sulfate 325 4-27 iron) mg (65 mg 00:00: iron) 00 tablet omeprazole 2021-0 No 1mg 40 mg 4-27 capsule,del 00:00: ayed 00 release Dose 2021-0 No Unknown 4-01 00:00: 00 [...] Dose 2-0 No Unknown 4-01 00:00: 00 levothyroxi 2-0 No 1mcg ne [...] Dose 2022-0 No Unknown 4-01 00:00: 00 hydrocortis 2-0 No 1mg one [...] Unknown 4-01 00:00: 00 Dose 2022-0 No 30 Unknown 4-01 00:00: 00 Dose 2022-0 No 30 Unknown 4-01 00:00: 00 Dose 2022-0 No 30 Unknown 4-01 00:00: 00 Dose 2022-0 No 30 Unknown 4- 00:00: 00 Dose 2022-0 No 30 Unknown 4-01 00:00: 00 Dose 2022-0 No [...] 4-01 00:00: 00 Dose 2022-0 No Unknown 3-31 [...] 3-31 00:00: 00 Dose 2022-0 No Unknown 3- 00:00: 00 Dose 2022-0 No Unknown 1-25 [...] 1,000 mg 1-19 tablet 00:00: 00 Dose 2022-0 No Unknown 1-19 00:00: 00 metoprolol 2022-0 No 1mg tartrate 25 1-19 mg tablet 00:00: 00 metoclopram 2-0 No 1mg rhoda 10 mg 1-19 tablet 00:00: 00 azithromyci 2022-0 No mg n 250 mg 1-19 tablet 00:00: 00 Dose 2022-0 No Unknown 1- 00:00: 00 Dose 2022-0 No Unknown - 00:00: 00 Dose 2-0 No Unknown - 00:00: 00 levothyroxi 2-0 No 1mcg ne [...] tablet 00:00: 00 Dose 2-0 No Unknown - 00:00: 00 metoprolol 2-0 No 1mg tartrate 25 1-19 mg tablet 00:00: 00 metoclopram 2-0 No 1mg rhoda 10 mg 1-19 tablet 00:00: 00 azithromyci 2-0 No mg n 250 mg 1-19 tablet 00:00: 00 Dose 2-0 No Unknown - 00:00: 00 Dose 2022-0 No Unknown - 00:00: 00 Dose 2-0 No Unknown - 00:00: 00 Dose 2-0 No Unknown - 00:00: 00 neomycin-po 2022-0 No 4mg/mL- lymyxin-hyd [...] 1mg 1,000 mg 1-19 tablet 00:00: 00 metoclopram 2022-0 No 1mg rhoda 10 mg 1-19 tablet 00:00: 00 azithromyci 2022-0 No mg n 250 mg -19 tablet 00:00: 00 Dose 2022-0 No Unknown -19 00:00: 00 Dose 2022-0 No Unknown 1-19 00:00: 00 Dose 2022-0 No 30 Unknown 1-19 00:00: 00 Dose 2022-0 No 30 Unknown 1-19 00:00: 00 Dose 2022-0 No Unknown 1-19 00:00: 00 Dose 2022-0 No 30 Unknown 1-19 00:00: 00 neomycin-po 2-0 No 4mg/mL- lymyxin-hyd [...] tablet 00:00: 00 metoclopram 2022-0 No 1mg rhoda 10 mg 1-19 tablet 00:00: 00 azithromyci 2022-0 No mg n 250 mg 1-19 tablet 00:00: 00 Dose 2022-0 No Unknown 1-19 00:00: 00 Dose 2022-0 No Unknown -19 00:00: 00 Dose 2022-0 No Unknown -19 00:00: 00 levothyroxi 2-0 No 1mcg ne 150 mcg -19 capsule 00:00: 00 neomycin-po 2022-0 No 4mg/mL- lymyxin-hyd 1-19 unit/mL rocort 3.5 00:00: -% mg-10,000 00 unit/mL-1 % ear drops,susp Humulin 2-0 No 1unit/m 70/30 U-100 1-19 L Insulin 100 00:00: (70-30) unit/mL 00 subcutaneou s suspension lisinopril 2-0 No 1mg 5 mg tablet -19 00:00: 00 hydroxyzine 2-0 No 1mg HCl 50 mg 1-19 tablet 00:00: 00 Myrbetriq 2-0 No 1mg 25 mg -19 tablet,exte 00:00: nded 00 release Dose 2-0 No Unknown 04-24 00:00: 00 metformin 2022-0 No 1mg 1,000 mg 1-19 tablet 00:00: 00 metformin 2022-0 No 1mg 500 mg 1-19 tablet 00:00: 00 metoprolol 2-0 No 1mg tartrate 25 1-19 mg tablet 00:00: 00 metoclopram 2022-0 No 1mg rhoda 10 mg 1-19 tablet 00:00: 00 azithromyci [...] tablet 00:00: 00 metoclopram 2-0 No 1mg rhoda 10 mg -19 tablet 00:00: 00 azithromyci [...] tablet 00:00: 00 metoclopram 2022-0 No 1mg rhoda 10 mg 1-19 tablet 00:00: 00 azithromyci 2022-0 No mg n 250 mg 1-19 tablet 00:00: 00 Dose 2022-0 No Unknown 1-19 00:00: 00 Dose 2022-0 No Unknown 1-19 00:00: 00 Dose 2022-0 No Unknown 1-19 00:00: 00 levothyroxi 2022-0 No 1mcg ne 150 mcg 1-19 capsule 00:00: 00 Dose 2022-0 No Unknown 1-06 00:00: 00 Dose 2022-0 No Unknown 1-06 00:00: 00 Dose 2022-0 No 30 Unknown 1-06 00:00: 00 lisinopril 2022-0 No 1mg 5 mg tablet 1-06 00:00: 00 lisinopril 2022-0 No 1mg 5 mg tablet 1-06 00:00: 00 lisinopril 2022-0 No 1mg 5 mg tablet 1-06 00:00: 00 lisinopril 2022-0 No 1mg 5 mg tablet 1-06 00:00: 00 hydroxyzine 2022-0 No 1mg HCl 50 mg 1-03 tablet 00:00: 00 hydroxyzine 2022-0 No 1mg HCl 50 mg 1-03 tablet 00:00: 00 metformin 2022-0 No 1mg 1,000 mg 1-03 tablet 00:00: 00 hydroxyzine 2022-0 No 1mg HCl 50 mg 1-03 tablet 00:00: 00 hydroxyzine 2022-0 No 1mg HCl 50 mg 1-03 tablet 00:00: 00 metformin 2022-0 No 1mg 1,000 mg 1-03 tablet 00:00: 00 hydroxyzine 2022-0 No 1mg HCl 50 mg 1-03 tablet 00:00: 00 metformin 2022-0 No 1mg 1,000 mg 1-03 tablet 00:00: 00 Dose 2022-0 No 30 Unknown 1-03 00:00: 00 Humulin 2022-0 No 1unit/m 70/30 [...] 2020-1 No 1mg tablet 2-16 00:00: 00 Dose 2020-1 No Unknown 2-16 00:00: 00 Dose 2020-1 No 30 Unknown 2-16 00:00: 00 Dose 2020-1 No 30 Unknown 2-16 00:00: 00 Zofran 4 mg 2020-1 No [...] nded 00 release metoclopram 2020-1 No 1mg rhoda 10 mg 1-16 tablet 00:00: 00 Myrbetriq 2020-1 No 1mg 25 mg 1-16 tablet,exte 00:00: nded 00 release metoclopram 2020-1 No 1mg rhoda 10 mg 1-16 tablet 00:00: 00 Myrbetriq 2020-1 No 1mg 25 mg 1-16 tablet,exte 00:00: nded 00 release metoclopram 2020-1 No 1mg rhoda 10 mg 1-16 tablet 00:00: 00 Myrbetriq 2020-1 No 1mg 25 mg 1-16 tablet,exte 00:00: nded 00 release metoclopram 2020-1 No 1mg rhoda 10 mg 1-16 tablet 00:00: 00 Myrbetriq 2020-1 No 1mg 25 mg 1-16 tablet,exte 00:00: nded 00 release metoclopram 1-1 No 1mg rhoda 10 mg 1-16 tablet 00:00: 00 Myrbetriq 2020-1 No 1mg 25 mg 1-16 tablet,exte 00:00: nded 00 release metoclopram 1-1 No 1mg rhoda 10 mg 1-16 tablet 00:00: 00 Myrbetriq 2020-1 No 1mg 25 mg 1-16 tablet,exte 00:00: nded 00 release metoclopram 1-1 No 1mg rhoda 10 mg 1-16 tablet 00:00: 00 atorvastati [...] mg 0-13 tablet,exte 00:00: nded 00 release Dose 2020-04 No Unknown 0-13 00:00: 00 Myrbetriq 2020-04 No 1mg 25 mg 0-13 tablet,exte 00:00: nded 00 release Dose 2020-04 No 30 Unknown 0-13 00:00: 00 Myrbetriq 2020-04 No 1mg 25 mg 0-13 tablet,exte 00:00: nded 00 release levothyroxi 2020-04 No 1mcg ne 300 mcg 0-13 tablet 00:00: 00 Myrbetriq 2020-04 No 1mg 25 mg 0-13 tablet,exte 00:00: nded 00 release levothyroxi 2020- No 1mcg ne 300 mcg 0-13 tablet 00:00: 00 Myrbetriq 2020-04 No 1mg 25 mg 0-13 tablet,exte 00:00: nded 00 release levothyroxi 2020-04 No 1mcg ne 300 mcg 0-13 tablet 00:00: 00 Myrbetriq 2020-04 No 1mg 25 mg 0-13 tablet,exte 00:00: nded 00 release levothyroxi 2020-04 No 1mcg ne 300 mcg 0-13 tablet 00:00: 00 nitrofurant 2020- No 1mg oin 0-12 macrocrysta 00:00: l 100 mg 00 capsule nitrofurant 2020-04 No 1mg oin 0-12 macrocrysta 00:00: l 100 mg 00 capsule Dose 1-1 No Unknown 0-12 00:00: 00 nitrofurant 1-1 No 1mg oin 0-12 macrocrysta 00:00: l 100 mg 00 capsule nitrofurant 1-1 No 1mg oin 0-12 macrocrysta 00:00: l 100 mg 00 capsule nitrofurant 1-1 No 1mg oin 0-12 macrocrysta 00:00: l 100 mg 00 capsule nitrofurant 1-1 No 1mg oin 0-12 macrocrysta 00:00: l 100 mg 00 capsule metoclopram 2021-0 No 1mg rhoda 10 mg 9-13 tablet 00:00: 00 metoclopram 2021-0 No 1mg rhoda 10 mg 9-13 tablet 00:00: 00 metoclopram 2021-0 No 1mg rhoda 10 mg 9-13 tablet 00:00: 00 metoclopram 2021-0 No 1mg rhoda 10 mg 9-13 tablet 00:00: 00 metoclopram 2021-0 No 1mg rhoda 10 mg 9-13 tablet 00:00: 00 metoclopram 2021-0 No 1mg rhoda 10 mg 9-13 tablet 00:00: 00 metoclopram 2021-0 No 1mg rhoda 10 mg 9-13 tablet 00:00: 00 Myrbetriq [...] nded 00 release metoclopram 2021-0 No 1mg rhoda 10 mg 8-13 tablet 00:00: 00 metoclopram 2021-0 No 1mg rhoda 10 mg 8-13 tablet 00:00: 00 metoclopram 2021-0 No 1mg rhoda 10 mg 8-13 tablet 00:00: 00 metoclopram 2021-0 No 1mg rhoda 10 mg 8-13 tablet 00:00: 00 metoclopram 2021-0 No 1mg rhoda 10 mg 8-13 tablet 00:00: 00 metoclopram 2021-0 No 1mg rhoda 10 mg 8-13 tablet 00:00: 00 metoclopram 2021-0 No 1mg rhoda 10 mg 8-13 tablet 00:00: 00 metoclopram 2021-0 No 1mg rhoda 10 mg 7-28 tablet 00:00: 00 metoclopram 2021-0 No 1mg rhoda 10 mg 7-28 tablet 00:00: 00 metoclopram 2021-0 No 1mg rhoda 10 mg 7-28 tablet 00:00: 00 metoclopram 2021-0 No 1mg rhoda 10 mg 7-28 tablet 00:00: 00 metoclopram 2021-0 No 1mg rhoda 10 mg 7-28 tablet 00:00: 00 metoclopram 2021-0 No 1mg rhoda 10 mg 7-28 tablet 00:00: 00 metoclopram 2021-0 No 1mg rhoda 10 mg 7-28 tablet 00:00: 00 atorvastati [...] mg 7-22 capsule,del 00:00: ayed 00 release atorvastati 2021-0 No 1mg n [...] mg 7-22 tablet,exte 00:00: nded 00 release atorvastati 2021-0 [...] mg 7-22 capsule,del 00:00: ayed 00 release Trintellix 2021-0 No 1mg 20 [...] 15 mg 7-22 tablet 00:00: 00 levothyroxi 1-0 No 1mcg ne 300 mcg 7-22 tablet 00:00: 00 omeprazole 1-0 No 1mg 40 mg 7-22 capsule,del 00:00: ayed 00 release alprazolam 2021-0 No 1mg 0.5 mg 7-13 tablet 00:00: 00 metoprolol 2021-0 No 1mg tartrate 25 7-13 mg tablet 00:00: 00 metoclopram 2021-0 No 1mg rhoda 10 mg 7-13 tablet 00:00: 00 Trintellix [...] tablet 00:00: 00 metoclopram 2021-0 No 1mg rhoda 10 mg 7-13 tablet 00:00: 00 mirtazapine [...] mg 7-13 capsule,del 00:00: ayed 00 release Trintellix 2021-0 No 1mg 20 mg 7-13 tablet 00:00: 00 Myrbetriq 2021-0 No 1mg 25 mg 7-13 tablet,exte 00:00: nded 00 release Dose 2021-0 No Unknown 7-13 00:00: 00 Dose 2021-0 No Unknown 7-13 00:00: 00 alprazolam 2021-0 No 1mg 0.5 mg 7-13 tablet 00:00: 00 metoprolol 2021-0 No 1mg tartrate 25 7-13 mg tablet 00:00: 00 metoclopram 2021-0 No 1mg rhoda 10 mg 7-13 tablet 00:00: 00 mirtazapine 2021-0 No 1mg 15 mg 7-13 tablet 00:00: 00 Dose 2021-0 No Unknown 7-13 00:00: 00 Dose 2021-0 No Unknown 7-13 00:00: 00 Vitamin D2 2021-0 No 1(50,00 1,250 mcg 7-13 0 unit) (50,000 00:00: unit) 00 capsule Vitamin D2 2021-0 No 1(50,00 1,250 mcg 7-13 0 unit) (50,000 00:00: unit) 00 capsule Trintellix 2021-0 No 1mg 20 mg 7-13 tablet 00:00: 00 Myrbetriq 2021-0 No 1mg 25 mg 7-13 tablet,exte 00:00: nded 00 release metoclopram 2021-0 No 1mg rhoda 10 mg 7-13 tablet 00:00: 00 mirtazapine 2021-0 No 1mg 15 mg 7-13 tablet 00:00: 00 Dose 2021-0 No 30 Unknown 7- 00:00: 00 Dose 2021-0 No 5 Unknown 7- 00:00: 00 Dose 2021-0 No 30 Unknown 7- 00:00: 00 Dose 2021-0 No Unknown 7- 00:00: 00 Dose 2021-0 No 30 Unknown 7- 00:00: 00 Dose 2021-0 No 30 Unknown 7- 00:00: 00 Dose 2021-0 No 5 Unknown 7- 00:00: 00 Humulin 2021-0 No 1unit/m 70/30 U-100 7-13 L Insulin 100 00:00: (70-30) unit/mL 00 subcutaneou s suspension Trintellix 1-0 No 1mg 20 mg 7-13 [...] tablet 00:00: 00 metoclopram 2021-0 No 1mg rhoda 10 mg 7-13 tablet 00:00: 00 mirtazapine [...] (70-30) unit/mL 00 subcutaneou s suspension Humulin 1-0 No 1unit/m 70/30 U-100 7-13 [...] tablet 00:00: 00 metoclopram 2021-0 No 1mg rhoda 10 mg 7-13 tablet 00:00: 00 mirtazapine [...] tablet 00:00: 00 metoclopram 2020-0 No 1mg rhoda 10 mg 7-13 tablet 00:00: 00 mirtazapine [...] Source Name Name Influenza, injectable, 2022-02-18 Completed [employer] [place] 00:00:00 Kidney, preservative-free, quadrivalent Influenza, injectable, 2022-02-18 Completed [facility] [place] 00:00:00 Kidney, preservative-free, quadrivalent Influenza, injectable, 2022-02-18 Completed [facility] [place] 00:00:00 Kidney, preservative-free, quadrivalent Moderna COVID-19 2021-02-07 Completed Vaccine 00:00:00 Moderna COVID-19 2021-02-07 Completed Vaccine 00:00:00 Moderna COVID-19 2021-02-07 Completed Vaccine 00:00:00 Moderna COVID-19 2021-02-07 Completed Vaccine 00:00:00 Moderna COVID-19 2021-02-07 Completed Vaccine 00:00:00 Moderna COVID-19 2021-02-07 Completed Vaccine 00:00:00 Moderna COVID-19 2021-02-07 Completed Vaccine 00:00:00 Moderna COVID-19 2020-07-19 Completed Vaccine 00:00:00 Moderna COVID-19 2020-07-19 Completed Vaccine 00:00:00 Moderna COVID-19 2020-07-19 Completed Vaccine 00:00:00 Moderna COVID-19 2020-06-21 Completed Vaccine 00:00:00 Moderna COVID-19 2020-06-21 Completed Vaccine 00:00:00 Moderna COVID-19 2020-06-21 Completed Vaccine 00:00:00 Vital Signs Vital Name Observation Time Observation Value Comments Source Systolic blood 2022-02-08 12:26:00 151 mm[Hg] [facility] Diastolic blood 2022-02-08 12:26:00 76 mm[Hg] Unive rsity of pressure [facility] Heart rate 2022-02-08 12:26:00 102 /min [facility] Body temperature 2022-02-08 12:26:00 37 Keli [facility] Respiratory rate 2022-02-08 12:26:00 20 /min [facility] Body height 2022-02-08 12:26:00 157.5 cm [facility] Body weight 2022-02-08 12:26:00 91.627 kg [facility] BMI 2022-02-08 12:26:00 36.95 kg/m2 [facility] Oxygen saturation in 2022-02-08 12:26:00 99 /min [facility] blood by [place] [facility] Pulse oximetry Branch Systolic blood 2021-12-17 04:49:00 147 mm[Hg] [facility] Diastolic blood 2021-12-17 04:49:00 74 mm[Hg] [facility] Heart rate 2021-12-17 04:49:00 97 /min [facility] Body temperature 2021-12-17 04:49:00 37 Keli [facility] Respiratory rate 2021-12-17 04:49:00 18 /min [facility] Body weight 2021-12-17 04:49:00 88.905 kg [facility] BMI 2021-12-17 04:49:00 35.85 kg/m2 [facility] Oxygen saturation in 2021-12-17 04:49:00 100 /min [facility] Arterial blood by [facility] [place] Pulse oximetry Branch Systolic blood 2021-10-19 08:10:00 123 mm[Hg] Univer sity of pressure [facility] Diastolic blood 2021-10-19 08:10:00 87 mm[Hg] Unive rsity of pressure [facility] Heart rate 2021-10-19 08:10:00 82 /min [facility] Respiratory rate 2021-10-19 08:10:00 18 /min [facility] Oxygen saturation in 2021-10-19 08:10:00 98 /min [facility] Arterial blood by [facility] Pulse oximetry Branch Body temperature 2021-10-19 04:15:00 36.83 [facility]eli [facility] height 2021-10-19 04:15:00 157.5 cm [facility] Body weight 2021-10-19 04:15:00 88.905 kg [facility] BMI 2021-10-19 04:15:00 35.85 kg/m2 [facility] BP Systolic 2022-02-18 11:05:00 97 mm[Hg] BP [...] Time Performed Performing Clinician Sourc e XR KNEE 3 VW LEFT 2022-02-08 13:19:39 Chad Garcia [facility] CONSENT/REFUSAL FOR 2022-02-08 12:22:24 Doctor Unassigned, No [facility] [place] [facility] TREATMENT NOTICE OF PRIVACY 2021-12-17 04:36:17 Doctor Unassigned, No [facility] [place] [facility] CONSENT/REFUSAL FOR 2021-12-17 04:35:03 Doctor Unassigned, No [facility] [place] [facility] TREATMENT XR HIPS 3 VW LEFT 2021-10-19 04:42:39 Yovana Rod [facility] Medical Branch NOTICE OF PRIVACY 2021-10-19 04:04:38 Doctor Unassigned, No [facility] [place] [facility] CONSENT/REFUSAL FOR 2021-10-19 04:04:16 Doctor Unassigned, No [facility] [place] [facility] AND Name [facility] TREATMENT Plan of Care Planned Activity Planned Date Details Comments Source Goal Plan of Care Note [code = 36177-4] Goal Plan of Care Note [code = 65735-4] Goal Plan of Care Note [code = 64223-1] Goal Plan of Care Note [code = 87964-3] Goal Plan of Care Note [code = 90758-9] Goal Plan of Care Note [code = 67905-2] Goal Plan of Care Note [code = 13643-7] Goal Plan of Care Note [code = 33636-7] Goal Plan of Care Note [code = 59746-2] Goal Plan of Care Note [code = 80075-4] Goal Plan of Care Note [code = 36166-0] Goal Plan of Care Note [code = 13467-2] Goal Plan of Care Note [code = 73182-9] Goal Plan of Care Note [code = 51421-7] Goal Plan of Care Note [code = 48734-5] Goal Plan of Care Note [code = 40953-0] Goal Plan of Care Note [code = 94173-2] Goal Plan of Care Note [code = 32198-6] Goal Plan of Care Note [code = 35125-9] Goal Plan of Care Note [code = 08302-0] Goal Plan of Care Note [code = 43932-1] Goal Plan of Care Note [code = 96863-7] Goal Plan of Care Note [code = 20670-7] Goal Plan of Care Note [code = 15336-3] Goal Plan of Care Note [code = 80591-6] Goal Plan of Care Note [code = 55170-1] Goal Plan of Care Note [code = 72108-1] Goal Plan of Care Note [code = 43241-3] Goal Plan of Care Note [code = 25785-3] Goal Plan of Care Note [code = 41457-3] Goal Plan of Care Note [code = 33571-3] Goal Plan of Care Note [code = 44596-8] Goal Plan of Care Note [code = 49079-8] Goal Plan of Care Note [code = 22509-1] Goal Plan of Care Note [code = 50702-0] Goal Plan of Care Note [code = 75586-4] Goal Plan of Care Note [code = 44211-1] Goal Plan of Care Note [code = 77606-4] Goal Plan of Care Note [code = 15893-3] Goal Plan of Care Note [code = 57939-5] Goal Plan of Care Note [code = 72652-6] Goal Plan of Care Note [code = 70155-5] Goal Plan of Care Note [code = 84706-9] Goal Plan of Care Note [code = 32620-2] Goal Plan of Care Note [code = 98960-7] Goal Plan of Care Note [code = 17964-6] Goal Plan of Care Note [code = 09586-0] Goal Plan of Care Note [code = 28544-9] Goal Plan of Care Note [code = 33375-2] Goal Plan of Care Note [code = 30768-8] Goal Plan of Care Note [code = 73601-1] Goal Plan of Care Note [code = 26252-4] Goal Plan of Care Note [code = 04619-1] Goal Plan of Care Note [code = 03530-2] Goal Plan of Care Note [code = 87385-8] Goal Plan of Care Note [code = 28117-0] Goal Plan of Care Note [code = 99481-5] Goal Plan of Care Note [code = 50150-5] Goal Plan of Care Note [code = 23295-8] Goal Plan of Care Note [code = 69729-7] Goal Plan of Care Note [code = 48695-5] Goal Plan of Care Note [code = 78073-7] Goal Plan of Care Note [code = 05147-0] Goal Plan of Care Note [code = 55495-1] Goal Plan of Care Note [code = 95879-0] Goal Plan of Care Note [code = 42620-7] Goal Plan of Care Note [code = 02268-5] Goal Plan of Care Note [code = 64976-4] Goal Plan of Care Note [code = 44253-1] Goal Plan of Care Note [code = 85278-3] Goal Plan of Care Note [code = 41677-7] Goal Plan of Care Note [code = 28585-3] Goal Plan of Care Note [code = 61248-6] Goal Plan of Care Note [code = 11961-7] Goal Plan of Care Note [code = 71103-1] Goal Plan of Care Note [code = 07471-9] Goal Plan of Care Note [code = 04252-1] Goal Plan of Care Note [code = 82244-7] Goal Plan of Care Note [code = 98170-3] Goal Plan of Care Note [code = 12903-6] Goal Plan of Care Note [code = 56546-1] Goal Plan of Care Note [code = 83815-2] Goal Plan of Care Note [code = 02912-0] Goal Plan of Care Note [code = 42573-2] Goal Plan of Care Note [code = 25102-1] Goal Plan of Care Note [code = 44088-2] Goal Plan of Care Note [code = 06631-5] Goal Plan of Care Note [code = 54259-7] Goal Plan of Care Note [code = 71636-8] Goal Plan of Care Note [code = 54154-8] Goal Plan of Care Note [code = 72248-9] Goal Plan of Care Note [code = 57769-0] Goal Plan of Care Note [code = 55874-3] Goal Plan of Care Note [code = 98285-5] Goal Plan of Care Note [code = 37270-0] Goal Plan of Care Note [code = 85143-5] Goal Plan of Care Note [code = 81191-4] Goal Plan of Care Note [code = 26987-6] Goal Plan of Care Note [code = 78703-2] Goal Plan of Care Note [code = 45341-7] Goal Plan of Care Note [code = 88903-9] Goal Plan of Care Note [code = 06140-9] Goal Plan of Care Note [code = 70279-5] Goal Plan of Care Note [code = 66281-0] Goal Plan of Care Note [code = 23840-0] Goal Plan of Care Note [code = 75536-2] Goal Plan of Care Note [code = 29020-6] Goal Plan of Care Note [code = 73762-1] Goal Plan of Care Note [code = 85477-0] Goal Plan of Care Note [code = 83731-6] Goal Plan of Care Note [code = 30430-6] Goal Plan of Care Note [code = 32750-5] Goal Plan of Care Note [code = 54009-1] Goal Plan of Care Note [code = 02114-3] Goal Plan of Care Note [code = 29332-5] Goal Plan of Care Note [code = 74334-4] Goal Plan of Care Note [code = 84215-1] Goal Plan of Care Note [code = 65180-7] Goal Plan of Care Note [code = 01035-5] Goal Plan of Care Note [code = 98637-7] Goal Plan of Care Note [code = 66678-0] Goal Plan of Care Note [code = 74369-3] Goal Plan of Care Note [code = 55408-4] Goal Plan of Care Note [code = 10099-8] Goal Plan of Care Note [code = 29705-9] Goal Plan of Care Note [code = 43166-8] Goal Plan of Care Note [code = 83086-3] Goal Plan of Care Note [code = 54956-0] Goal Plan of Care Note [code = 40132-0] Goal Plan of Care Note [code = 21407-3] Goal Plan of Care Note [code = 73877-0] Goal Plan of Care Note [code = 47325-5] Goal Plan of Care Note [code = 88931-5] Goal Plan of Care Note [code = 17356-4] Goal Plan of Care Note [code = 97252-2] Goal Plan of Care Note [code = 64371-6] Goal Plan of Care Note [code = 04919-9] Goal Plan of Care Note [code = 02196-4] Goal Plan of Care Note [code = 91370-4] Goal Plan of Care Note [code = 89657-0] Goal Plan of Care Note [code = 50437-9] Goal Plan of Care Note [code = 55392-8] Goal Plan of Care Note [code = 38324-2] Goal Plan of Care Note [code = 37093-1] Goal Plan of Care Note [code = 42160-3] Goal Plan of Care Note [code = 56136-2] Goal Plan of Care Note [code = 54480-2] Goal Plan of Care Note [code = 50384-4] Goal Plan of Care Note [code = 54673-7] Goal Plan of Care Note [code = 63949-1] Goal Plan of Care Note [code = 83375-1] Goal Plan of Care Note [code = 55572-4] Goal Plan of Care Note [code = 93790-9] Goal Plan of Care Note [code = 56660-6] Goal Plan of Care Note [code = 09582-6] Goal Plan of Care Note [code = 70803-2] Goal Plan of Care Note [code = 12979-1] Goal Plan of Care Note [code = 50877-9] Goal Plan of Care Note [code = 49476-6] Goal Plan of Care Note [code = 50804-0] Goal Plan of Care Note [code = 27877-3] Goal Plan of Care Note [code = 17985-7] Goal Plan of Care Note [code = 23888-5] Goal Plan of Care Note [code = 23029-1] Goal Plan of Care Note [code = 12621-0] Goal Plan of Care Note [code = 60935-4] Goal Plan of Care Note [code = 45124-4] Goal Plan of Care Note [code = 61677-1] Goal Plan of Care Note [code = 89900-3] Goal Plan of Care Note [code = 61956-7] Goal Plan of Care Note [code = 73915-8] Goal Plan of Care Note [code = 87228-9] Goal Plan of Care Note [code = 45298-5] Goal Plan of Care Note [code = 95537-1] Goal Plan of Care Note [code = 52391-5] Goal Plan of Care Note [code = 45941-5] Goal Plan of Care Note [code = 78340-0] Goal Plan of Care Note [code = 12045-4] Goal Plan of Care Note [code = 78656-0] Goal Plan of Care Note [code = 33005-7] Goal Plan of Care Note [code = 06652-6] Goal Plan of Care Note [code = 65459-6] Goal Plan of Care Note [code = 44233-0] Goal Plan of Care Note [code = 02506-1] Goal Plan of Care Note [code = 31746-0] Goal Plan of Care Note [code = 87310-2] Goal Plan of Care Note [code = 36854-3] Goal Plan of Care Note [code = 09356-7] Goal Plan of Care Note [code = 34422-7] Goal Plan of Care Note [code = 22654-9] Goal Plan of Care Note [code = 65238-4] Goal Plan of Care Note [code = 76354-6] Goal Plan of Care Note [code = 62054-6] Goal Plan of Care Note [code = 89751-6] Goal Plan of Care Note [code = 90141-8] Goal Plan of Care Note [code = 46543-5] Goal Plan of Care Note [code = 74617-4] Goal Plan of Care Note [code = 01008-2] Goal Plan of Care Note [code = 44351-6] Goal Plan of Care Note [code = 03707-4] Goal Plan of Care Note [code = 17364-1] Goal Plan of Care Note [code = 79887-2] Goal Plan of Care Note [code = 64288-2] Goal Plan of Care Note [code = 35939-6] Goal Plan of Care Note [code = 29776-2] Goal Plan of Care Note [code = 04782-1] Encounters Start End Encounter Admission Attending Care Care Encounter Source Date/Time Date/Time Type Type Clinicians Facility Department ID 2022-01-06 Outpatient [facility] [id number] [place] 15:02:53 [id number] [facility] 2021-09-19 Outpatient SCOUT [facility] [id number] [place] 01:03:24 JULIA [id number] [facility] 2022-03-27 2022-03-27 Outpatient JAI VERGARA [id number] [place] 09:47:25 09:47:25 [address] [place] 2022-03-27 2022-03-27 Outpatient [id number]- [id number] 40vu34-y 00:00:00 00:00:00 Visit dbfc-4253 bfc-4253-8 -3w0p-x15 q1z-a76696 50684jvy2 69ade7 2022-03-13 2022-03-13 Outpatient [facility] [id number] Gene 17:00:33 17:00:33 38682 F Abbe 2022-03-13 2022-03-13 Outpatient [id number]- [id number] 45d2bf-o 00:00:00 00:00:00 Visit kd5v-281n j0m-210u-f -e949-0a1 703-8a85ef 8kn2nf1k5 1bd6b3 2022-02-18 2022-02-18 Outpatient [facility] [id number]- Gene 10:55:27 10:55:27 00896 F Abbe 2022-02-18 2022-02-18 Outpatient [id number]- [id number] s1zt18-e 00:00:00 00:00:00 Visit vo02-15g6 m37-81h8-6 -8289-9be 289-9be0be 4mdec710p dq601o 2022-02-08 2022-02-08 Emergency OLYA Garcia [id number] Univers 07:27:00 08:55:00 [facility] [place] [facility] [id number] [address] 2022-02-08 2022-02-08 Emergency X CHAD GARCIA [facility] ERT 1 [id number] [facility] 07:27:00 08:55:00 CHAD GARCIA ity [facility] 2022-01-14 2022-01-14 Outpatient [facility] [id number] Gene 10:28:11 10:28:11 [id number] F Abbe 2022-01-14 2022-01-14 Outpatient [id number]- [id number] jj5g62-o 00:00:00 00:00:00 Visit fs01-895x i69-687p-7 -6o70-c08 d78-o508dt 3ds05ixyp 51adba 2022-01-02 2022-01-02 Outpatient [facility] [id number] Gene 15:06:03 15:06:03 71659 Annette Mcadams 2021-12-16 2021-12-17 Emergency X EREN OCHOA [facility] ERT 1 [id number] Univers 23:50:00 01:28:00 EREN OCHOA [facility] 2021-12-16 2021-12-17 [facility] [id number] [facility] 23:50:00 01:28:00 Eren [place] 350.1.13.10 i ty of [place] 4.2.7.2.686 [facility] [id number] [address] 2021-12-02 2021-12-02 Outpatient [id number] 35dg26-3 00:00:00 00:00:00 Visit 8w57-8l31 b50-4d50-3 -2qj6-q93 af5-m63531 [id number] 6714-07-21 2021-10-24 Outpatient 61cl45d3- [id number] dt52v7-2 00:00:00 00:00:00 Visit 422b-482d 22b-482d-8 -8157-b70 157-b704e0 4m81k1jgs 0f6bdd 2021-10-18 2021-10-19 Emergency X [facility] ERT [id number] Univers 23:20:00 03:26:00 YOVANA hearn [facility] 2021-10-18 2021-10-19 Emergency [facility] [id number] Univers 23:20:00 03:26:00 Yovana [place] 350.1.13.10 i ty of [place] 4.2.7.2.686 [facility] [id number] [address] 2021-09-30 2021-09-30 Outpatient [id number]- [id number] b44m75-4 00:00:00 00:00:00 Visit 6d8d-2ckh l4r-2vrx-x -n5e5-dyt 7i4-fzaz28 y87210jk2 696ce1 2021-06-20 2021-06-20 Outpatient SCOUT, [facility] [address] [facility] 12:04:00 23:59:00 JULIA Results Test Description Test Time Test Comments Results Result Comments Source TSH, THIRD GENERATION 2022-01-15 06:52:55 Test Item Value Reference Range Interpretation Comme nts TSH, THIRD GENERATION (test code = 2821) 2.700 UIU/ML 0.400-4.100 COMPREHENSIVE METABOLIC [id number] 04:09:28 Test Item Value Reference Range Interpretation Comments GLUCOSE (test code = 169 MG/DL 70-99 H 2216) BUN (test code = 17 MG/DL 8-23 2207) CREATININE (test 0.86 MG/DL 0.60-1.30 code = 221) eGFR (2020 CKD-EPI) 76 ML/MIN/1.73 >60 (test code = 28026) CALC BUN/CREAT (test 20 RATIO 6-28 code = 2235) SODIUM (test code = 141 MEQ/L 105-082 7640) POTASSIUM (test code 4.3 MEQ/L 3.5-5.4 = 2227) CHLORIDE (test code 99 MEQ/L 95-107 = 2214) CARBON DIOXIDE (test 25 MEQ/L 19-31 code [...] 2217) ALT (test code = 34 U/L 2218) HEMOGLOBIN [id number] 02:13:42 Test Item Value Reference Range Interpretation Comments HEMOGLOBIN A1c (test 6.8 % 4.2-5.6 H [employer] CAN DIABETES code = 68962) ASSOCIATION IDELINES FOR HGB A1C: PREDIABETES/INC REASED [...] INDICATED, ALL TESTING PER FORMED ATCLINICAL PATH [facility]. [address] [place] [address] LAB[address] DIRE CTOR: LILLI VELAZQUEZ M.D. CLIA NUMBER [id number] [place] [id number] CBC W/AUTO DIFF WITH [id number] 02:02:15 Test Item Value Reference Range Interpretation [...] RBCS 0.00 K/UL 0.00-0.11 (test code = 10823) COMPREHENSIVE METABOLIC [id number] 00:00:00 Test Item Value Reference Range Interpretation Comments GLUCOSE (test code = 2217) 169 MG/DL BUN (test code = 2208) 17 MG/DL CREATININE (test code = 2214) 0.86 MG/DL eGFR (2020 CKD-EPI) (test code 76 ML/MIN/1.73 = 93665) CALC BUN/CREAT (test code = 20 RATIO [...] RATIO 223) BILIRUBIN, TOTAL (test code = 0.5 MG/DL 2206) ALKALINE PHOSPHATASE (test 92 U/L code = 2204) AST (test code = 2218) 35 U/L ALT (test code = 2219) 34 U/L COMPREHENSIVE METABOLIC [id number] 00:00:00 Test Item Value Reference Range Interpretation Comments GLUCOSE (test code = 2217) 169 MG/DL BUN (test code = 2208) 17 MG/DL CREATININE (test code = 2214) 0.86 MG/DL eGFR (2020 CKD-EPI) (test code 76 ML/MIN/1.73 = 95959) CALC BUN/CREAT (test code = 20 RATIO [...] code = 2219) 34 U/L CBC W/AUTO [id number] 00:00:00 Test Item Value Reference Range Interpretation [...] NUCLEATED RBCS (test code = 0.00 K/UL 09723) CBC W/AUTO [id number] 00:00:00 Test Item Value Reference Range Interpretation [...] NUCLEATED RBCS (test code = 0.00 K/UL 20945) CBC W/AUTO [id number] 00:00:00 Test Item Value Reference Range Interpretation [...] NUCLEATED RBCS (test code = 0.00 K/UL 07496) TSH, THIRD [id number] 00:00:00 Test Item Value Reference Range Interpretation Comments TSH, THIRD GENERATION (test code 2.700 UIU/ML = 2821) TSH, THIRD [id number] 00:00:00 Test Item Value Reference Range Interpretation Comments TSH, THIRD GENERATION (test code 2.700 UIU/ML = 2821) TSH, THIRD [id number] 00:00:00 Test Item Value Reference Range Interpretation Comments TSH, THIRD GENERATION (test code 2.700 UIU/ML = 2821) HEMOGLOBIN [id number] 00:00:00 Test Item Value Reference Range Interpretation Comments HEMOGLOBIN A1c (test code = 07697) 6.8 % HEMOGLOBIN [id number] 00:00:00 Test Item Value Reference Range Interpretation Comments HEMOGLOBIN A1c (test code = 51551) 6.8 % HEMOGLOBIN [id number] 00:00:00 Test Item Value Reference Range Interpretation Comments HEMOGLOBIN A1c (test code = 12509) 6.8 % COMPREHENSIVE METABOLIC [id number] 00:00:00 Test Item Value Reference Range Interpretation Comments GLUCOSE (test code = 2217) 169 MG/DL BUN (test code = 2208) 17 MG/DL CREATININE (test code = 2214) 0.86 MG/DL eGFR (2020 CKD-EPI) (test code 76 ML/MIN/1.73 = 00798) CALC BUN/CREAT (test code = 20 RATIO [...] code = 2219) 34 U/L COMPREHENSIVE METABOLIC [id number] 00:00:00 Test Item Value Reference Range Interpretation Comments GLUCOSE (test code = 2217) 169 MG/DL BUN (test code = 2208) 17 MG/DL CREATININE (test code = 2214) 0.86 MG/DL eGFR (2020 CKD-EPI) (test code 76 ML/MIN/1.73 = 75161) CALC BUN/CREAT (test code = 20 RATIO [...] BILIRUBIN, TOTAL (test code = 0.5 MG/DL 2207) ALKALINE PHOSPHATASE (test 92 U/L code = 2204) AST (test code = 2218) 35 U/L ALT (test code = 2219) 34 U/L CBC W/AUTO [id number] 00:00:00 Test Item Value Reference Range Interpretation [...] NUCLEATED RBCS (test code = 0.00 K/UL 76029) CBC W/AUTO [id number] 00:00:00 Test Item Value Reference Range Interpretation [...] NUCLEATED RBCS (test code = 0.00 K/UL 94760) CBC W/AUTO [id number] 00:00:00 Test Item Value Reference Range Interpretation [...] NUCLEATED RBCS (test code = 0.00 K/UL 67810) TSH, THIRD [id number] 00:00:00 Test Item Value Reference Range Interpretation Comments TSH, THIRD GENERATION (test code 2.700 UIU/ML = 2821) TSH, THIRD [id number] 00:00:00 Test Item Value Reference Range Interpretation Comments TSH, THIRD GENERATION (test code 2.700 UIU/ML = 2821) TSH, THIRD [id number] 00:00:00 Test Item Value Reference Range Interpretation Comments TSH, THIRD GENERATION (test code 2.700 UIU/ML = 2821) HEMOGLOBIN [id number] 00:00:00 Test Item Value Reference Range Interpretation Comments HEMOGLOBIN A1c (test code = 84647) 6.8 % HEMOGLOBIN [id number] 00:00:00 Test Item Value Reference Range Interpretation Comments HEMOGLOBIN A1c (test code = 71043) 6.8 % HEMOGLOBIN [id number] 00:00:00 Test Item Value Reference Range Interpretation Comments HEMOGLOBIN A1c (test code = 23358) 6.8 % COMPREHENSIVE METABOLIC [id number] 00:00:00 Test Item Value Reference Range Interpretation Comments GLUCOSE (test code = 2217) 169 MG/DL BUN (test code = 2208) 17 MG/DL CREATININE (test code = 2214) 0.86 MG/DL eGFR (2020 CKD-EPI) (test code 76 ML/MIN/1.73 = 07100) CALC BUN/CREAT (test code = 20 RATIO [...] code = 2219) 34 U/L COMPREHENSIVE METABOLIC [id number] 00:00:00 Test Item Value Reference Range Interpretation Comments GLUCOSE (test code = 2217) 169 MG/DL BUN (test code = 2208) 17 MG/DL CREATININE (test code = 2214) 0.86 MG/DL eGFR (2020 CKD-EPI) (test code 76 ML/MIN/1.73 = 76677) CALC BUN/CREAT (test code = 20 RATIO [...] code = 2219) 34 U/L CBC W/AUTO [id number] 00:00:00 Test Item Value Reference Range Interpretation [...] NUCLEATED RBCS (test code = 0.00 K/UL 61145) CBC W/AUTO [id number] 00:00:00 Test Item Value Reference Range Interpretation [...] NUCLEATED RBCS (test code = 0.00 K/UL 50505) CBC W/AUTO [id number] 00:00:00 Test Item Value Reference Range Interpretation [...] NUCLEATED RBCS (test code = 0.00 K/UL 67858) TSH, THIRD [id number] 00:00:00 Test Item Value Reference Range Interpretation Comments TSH, THIRD GENERATION (test code 2.700 UIU/ML = 2821) TSH, THIRD [id number] 00:00:00 Test Item Value Reference Range Interpretation Comments TSH, THIRD GENERATION (test code 2.700 UIU/ML = 2821) TSH, THIRD [id number] 00:00:00 Test Item Value Reference Range Interpretation Comments TSH, THIRD GENERATION (test code 2.700 UIU/ML = 2821) HEMOGLOBIN [id number] 00:00:00 Test Item Value Reference Range Interpretation Comments HEMOGLOBIN A1c (test code = 49837) 6.8 % HEMOGLOBIN [id number] 00:00:00 Test Item Value Reference Range Interpretation Comments HEMOGLOBIN A1c (test code = 38529) 6.8 % HEMOGLOBIN [id number] 00:00:00 Test Item Value Reference Range Interpretation Comments HEMOGLOBIN A1c (test code = 87695) 6.8 % COMPREHENSIVE METABOLIC [id number] 00:00:00 Test Item Value Reference Range Interpretation Comments GLUCOSE (test code = 2217) 169 MG/DL BUN (test code = 2208) 17 MG/DL CREATININE (test code = 2214) 0.86 MG/DL eGFR (2020 CKD-EPI) (test code 76 ML/MIN/1.73 = 49026) CALC BUN/CREAT (test code = 20 RATIO [...] RATIO 4) BILIRUBIN, TOTAL (test code = 0.5 MG/DL 2206) ALKALINE PHOSPHATASE (test 92 U/L code = 2204) AST (test code = 2218) 35 U/L ALT (test code = 2219) 34 U/L COMPREHENSIVE METABOLIC [id number] 00:00:00 Test Item Value Reference Range Interpretation Comments GLUCOSE (test code = 2217) 169 MG/DL BUN (test code = 2208) 17 MG/DL CREATININE (test code = 2214) 0.86 MG/DL eGFR (2020 CKD-EPI) (test code 76 ML/MIN/1.73 = 11282) CALC BUN/CREAT (test code = 20 RATIO 2235) SODIUM (test code = 2231) 141 MEQ/L POTASSIUM (test code = 2228) 4.3 MEQ/L CHLORIDE (test code = 2215) 99 MEQ/L CARBON DIOXIDE (test code = 25 MEQ/L 2206) CALCIUM (test code = 2209) 9.6 MG/DL PROTEIN, TOTAL (test code = 7.6 G/DL 2229) ALBUMIN (test code = 2201) 4.3 G/DL CALC GLOBULIN (test code = 3.3 G/DL 2240) CALC A/G RATIO (test code = 1.3 RATIO 2234) BILIRUBIN, TOTAL (test code = 0.5 MG/DL 2207) ALKALINE PHOSPHATASE (test 92 U/L code = 2204) AST (test code = 2218) 35 U/L ALT (test code = 2219) 34 U/L CBC W/AUTO [id number] 00:00:00 Test Item Value Reference Range Interpretation [...] NUCLEATED RBCS (test code = 0.00 K/UL 21365) CBC W/AUTO [id number] 00:00:00 Test Item Value Reference Range Interpretation [...] NUCLEATED RBCS (test code = 0.00 K/UL 69371) CBC W/AUTO [id number] 00:00:00 Test Item Value Reference Range Interpretation [...] NUCLEATED RBCS (test code = 0.00 K/UL 75739) TSH, THIRD [id number] 00:00:00 Test Item Value Reference Range Interpretation Comments TSH, THIRD GENERATION (test code 2.700 UIU/ML = 2821) TSH, THIRD [id number] 00:00:00 Test Item Value Reference Range Interpretation Comments TSH, THIRD GENERATION (test code 2.700 UIU/ML = 2821) TSH, THIRD [id number] 00:00:00 Test Item Value Reference Range Interpretation Comments TSH, THIRD GENERATION (test code 2.700 UIU/ML = 2821) HEMOGLOBIN [id number] 00:00:00 Test Item Value Reference Range Interpretation Comments HEMOGLOBIN A1c (test code = 54423) 6.8 % HEMOGLOBIN [id number] 00:00:00 Test Item Value Reference Range Interpretation Comments HEMOGLOBIN A1c (test code = 78774) 6.8 % HEMOGLOBIN [id number] 00:00:00 Test Item Value Reference Range Interpretation Comments HEMOGLOBIN A1c (test code = 21236) 6.8 % VITAMIN D, 25 [id number] 06:58:12 Test Item Value Reference Range Interpretation [...] PERFORM ED [facility] [address] [place] [address] LABORATORY DIRE CTOR: Radha LOAIZA. CLIA NUMBER [id number] CAP ACCREDITATION N O. [id number] TSH, THIRD [id number] 06:45:08 Test Item Value Reference Range Interpretation Comments TSH, THIRD GENERATION (test code 1.290 UIU/ML 0.400-4.100 = 2821) VITAMIN [id number] 06:45:08 Test Item Value Reference Range Interpretation Comments VITAMIN B-12 (test code = 2840) 647 PG/ML 200-950 COMPREHENSIVE METABOLIC [id number] 05:39:52 Test Item Value Reference Range Interpretation Comments GLUCOSE (test code = 119 MG/DL 70-99 H 2216) BUN (test code = 19 MG/DL 8-23 2207) CREATININE (test 0.98 MG/DL 0.60-1.30 code = 2214) eGFR (2020 CKD-EPI) 65 ML/MIN/1.73 >60 (test code = 03210) CALC BUN/CREAT (test 19 RATIO 6-28 code = 2235) SODIUM (test code = 137 MEQ/L 152-065 2297) POTASSIUM (test code 4.9 MEQ/L 3.5-5.4 = 2227) CHLORIDE (test code 97 MEQ/L 95-107 = 2215) CARBON DIOXIDE (test 23 MEQ/L 19-31 code = 2206) CALCIUM (test code = 9.7 MG/DL 8.5-10.5 [...] (test code = 48 U/L 9-40 H 2218) ALT (test code = 48 U/L 5-40 H 221) CBC W/AUTO DIFF WITH [id number] 02:09:53 Test Item Value Reference Range Interpretation [...] RBCS 0.00 K/UL 0.00-0.11 (test code = 91390) TSH, THIRD [id number] 00:00:00 Test Item Value Reference Range Interpretation Comments TSH, THIRD GENERATION (test code 1.290 UIU/ML = 2821) TSH, THIRD [id number] 00:00:00 Test Item Value Reference Range Interpretation Comments TSH, THIRD GENERATION (test code 1.290 UIU/ML = 2821) TSH, THIRD [id number] 00:00:00 Test Item Value Reference Range Interpretation Comments TSH, THIRD GENERATION (test code 1.290 UIU/ML = 2821) CBC W/AUTO [id number] 00:00:00 Test Item Value Reference Range Interpretation [...] NUCLEATED RBCS (test code = 0.00 K/UL 10270) CBC W/AUTO [id number] 00:00:00 Test Item Value Reference Range Interpretation [...] NUCLEATED RBCS (test code = 0.00 K/UL 73780) CBC W/AUTO [id number] 00:00:00 Test Item Value Reference Range Interpretation [...] NUCLEATED RBCS (test code = 0.00 K/UL 28133) COMPREHENSIVE METABOLIC [id number] 00:00:00 Test Item Value Reference Range Interpretation Comments GLUCOSE (test code = 2217) 119 MG/DL BUN (test code = 2208) 19 MG/DL CREATININE (test code = 2214) 0.98 MG/DL eGFR (2020 CKD-EPI) (test code 65 ML/MIN/1.73 = 52091) CALC BUN/CREAT (test code = 19 RATIO [...] BILIRUBIN, TOTAL (test code = 0.3 MG/DL 220) ALKALINE PHOSPHATASE (test 79 U/L code = 2204) AST (test code = 2218) 48 U/L ALT (test code = 2219) 48 U/L COMPREHENSIVE METABOLIC [id number] 00:00:00 Test Item Value Reference Range Interpretation Comments GLUCOSE (test code = 2217) 119 MG/DL BUN (test code = 2208) 19 MG/DL CREATININE (test code = 2214) 0.98 MG/DL eGFR (2020 CKD-EPI) (test code 65 ML/MIN/1.73 = 84021) CALC BUN/CREAT (test code = 19 RATIO 2235) SODIUM (test code = 2231) 137 MEQ/L POTASSIUM (test code = 2228) 4.9 MEQ/L CHLORIDE (test code = 2215) 97 MEQ/L CARBON DIOXIDE (test code = 23 MEQ/L 2205) CALCIUM (test code = 220) 9.7 MG/DL PROTEIN, TOTAL (test code = 7.9 G/DL 2228) ALBUMIN (test code = 220) 4.6 G/DL CALC GLOBULIN (test code = 3.3 G/DL 2239) CALC A/G RATIO (test code = 1.4 RATIO 2233) BILIRUBIN, TOTAL (test code = 0.3 MG/DL 2206) ALKALINE PHOSPHATASE (test 79 U/L code = 2204) AST (test code = 2218) 48 U/L ALT (test code = 2219) 48 U/L VITAMIN [id number] 00:00:00 Test Item Value Reference Range Interpretation Comments VITAMIN B-12 (test code = 2840) 647 PG/ML VITAMIN [id number] 00:00:00 Test Item Value Reference Range Interpretation Comments VITAMIN B-12 (test code = 2840) 647 PG/ML VITAMIN [id number] 00:00:00 Test Item Value Reference Range Interpretation Comments VITAMIN B-12 (test code = 2840) 647 PG/ML VITAMIN D, 25 [id number] 00:00:00 Test Item Value Reference Range Interpretation Comments VITAMIN D, 25 OH (test code = 4958) 18 NG/ML VITAMIN D, 25 [id number] 00:00:00 Test Item Value Reference Range Interpretation Comments VITAMIN D, 25 OH (test code = 4958) 18 NG/ML TSH, THIRD [id number] 00:00:00 Test Item Value Reference Range Interpretation Comments TSH, THIRD GENERATION (test code 1.290 UIU/ML = 2821) TSH, THIRD [id number] 00:00:00 Test Item Value Reference Range Interpretation Comments TSH, THIRD GENERATION (test code 1.290 UIU/ML = 2821) TSH, THIRD [id number] 00:00:00 Test Item Value Reference Range Interpretation Comments TSH, THIRD GENERATION (test code 1.290 UIU/ML = 2821) CBC W/AUTO [id number] 00:00:00 Test Item Value Reference Range Interpretation [...] NUCLEATED RBCS (test code = 0.00 K/UL 41901) CBC W/AUTO [id number] 00:00:00 Test Item Value Reference Range Interpretation [...] NUCLEATED RBCS (test code = 0.00 K/UL 94942) CBC W/AUTO [id number] 00:00:00 Test Item Value Reference Range Interpretation [...] NUCLEATED RBCS (test code = 0.00 K/UL 58031) COMPREHENSIVE METABOLIC [id number] 00:00:00 Test Item Value Reference Range Interpretation Comments GLUCOSE (test code = 2217) 119 MG/DL BUN (test code = 2208) 19 MG/DL CREATININE (test code = 2214) 0.98 MG/DL eGFR (2020 CKD-EPI) (test code 65 ML/MIN/1.73 = 50581) CALC BUN/CREAT (test code = 19 RATIO [...] code = 2219) 48 U/L COMPREHENSIVE METABOLIC [id number] 00:00:00 Test Item Value Reference Range Interpretation Comments GLUCOSE (test code = 2217) 119 MG/DL BUN (test code = 2208) 19 MG/DL CREATININE (test code = 2214) 0.98 MG/DL eGFR (2020 CKD-EPI) (test code 65 ML/MIN/1.73 = 42465) CALC BUN/CREAT (test code = 19 RATIO [...] 2239) CALC A/G RATIO (test code = 1.4 RATIO 2233) BILIRUBIN, TOTAL (test code = 0.3 MG/DL 2206) ALKALINE PHOSPHATASE (test 79 U/L code = 2204) AST (test code = 2218) 48 U/L ALT (test code = 2219) 48 U/L VITAMIN [id number] 00:00:00 Test Item Value Reference Range Interpretation Comments VITAMIN B-12 (test code = 2840) 647 PG/ML VITAMIN [id number] 00:00:00 Test Item Value Reference Range Interpretation Comments VITAMIN B-12 (test code = 2840) 647 PG/ML VITAMIN [id number] 00:00:00 Test Item Value Reference Range Interpretation Comments VITAMIN B-12 (test code = 2840) 647 PG/ML VITAMIN D, 25 [id number] 00:00:00 Test Item Value Reference Range Interpretation Comments VITAMIN D, 25 OH (test code = 4958) 18 NG/ML VITAMIN D, 25 [id number] 00:00:00 Test Item Value Reference Range Interpretation Comments VITAMIN D, 25 OH (test code = 4958) 18 NG/ML TSH, THIRD [id number] 00:00:00 Test Item Value Reference Range Interpretation Comments TSH, THIRD GENERATION (test code 1.290 UIU/ML = 2821) TSH, THIRD [id number] 00:00:00 Test Item Value Reference Range Interpretation Comments TSH, THIRD GENERATION (test code 1.290 UIU/ML = 2821) TSH, THIRD [id number] 00:00:00 Test Item Value Reference Range Interpretation Comments TSH, THIRD GENERATION (test code 1.290 UIU/ML = 2821) CBC W/AUTO [id number] 00:00:00 Test Item Value Reference Range Interpretation [...] NUCLEATED RBCS (test code = 0.00 K/UL 49343) CBC W/AUTO [id number] 00:00:00 Test Item Value Reference Range Interpretation [...] NUCLEATED RBCS (test code = 0.00 K/UL 01635) CBC W/AUTO [id number] 00:00:00 Test Item Value Reference Range Interpretation [...] NUCLEATED RBCS (test code = 0.00 K/UL 86155) COMPREHENSIVE METABOLIC [id number] 00:00:00 Test Item Value Reference Range Interpretation Comments GLUCOSE (test code = 2217) 119 MG/DL BUN (test code = 2208) 19 MG/DL CREATININE (test code = 2214) 0.98 MG/DL eGFR (2020 CKD-EPI) (test code 65 ML/MIN/1.73 = 26244) CALC BUN/CREAT (test code = 19 RATIO [...] 2239) CALC A/G RATIO (test code = 1.4 RATIO 2234) BILIRUBIN, TOTAL (test code = 0.3 MG/DL 2206) ALKALINE PHOSPHATASE (test 79 U/L code = 2204) AST (test code = 2218) 48 U/L ALT (test code = 2219) 48 U/L COMPREHENSIVE METABOLIC [id number] 00:00:00 Test Item Value Reference Range Interpretation Comments GLUCOSE (test code = 2217) 119 MG/DL BUN (test code = 2208) 19 MG/DL CREATININE (test code = 2214) 0.98 MG/DL eGFR (2020 CKD-EPI) (test code 65 ML/MIN/1.73 = 58271) CALC BUN/CREAT (test code = 19 RATIO [...] (test code = 2219) 48 U/L VITAMIN [id number] 00:00:00 Test Item Value Reference Range Interpretation Comments VITAMIN B-12 (test code = 2840) 647 PG/ML VITAMIN [id number] 00:00:00 Test Item Value Reference Range Interpretation Comments VITAMIN B-12 (test code = 2840) 647 PG/ML VITAMIN [id number] 00:00:00 Test Item Value Reference Range Interpretation Comments VITAMIN B-12 (test code = 2840) 647 PG/ML VITAMIN D, 25 [id number] 00:00:00 Test Item Value Reference Range Interpretation Comments VITAMIN D, 25 OH (test code = 4958) 18 NG/ML VITAMIN D, 25 [id number] 00:00:00 Test Item Value Reference Range Interpretation Comments VITAMIN D, 25 OH (test code = 4958) 18 NG/ML TSH, THIRD [id number] 00:00:00 Test Item Value Reference Range Interpretation Comments TSH, THIRD GENERATION (test code 1.290 UIU/ML = 2821) TSH, THIRD [id number] 00:00:00 Test Item Value Reference Range Interpretation Comments TSH, THIRD GENERATION (test code 1.290 UIU/ML = 2821) TSH, THIRD [id number] 00:00:00 Test Item Value Reference Range Interpretation Comments TSH, THIRD GENERATION (test code 1.290 UIU/ML = 2821) CBC W/AUTO [id number] 00:00:00 Test Item Value Reference Range Interpretation [...] NUCLEATED RBCS (test code = 0.00 K/UL 46130) CBC W/AUTO [id number] 00:00:00 Test Item Value Reference Range Interpretation [...] NUCLEATED RBCS (test code = 0.00 K/UL 17239) CBC W/AUTO [id number] 00:00:00 Test Item Value Reference Range Interpretation [...] NUCLEATED RBCS (test code = 0.00 K/UL 19428) COMPREHENSIVE METABOLIC [id number] 00:00:00 Test Item Value Reference Range Interpretation Comments GLUCOSE (test code = 2217) 119 MG/DL BUN (test code = 2208) 19 MG/DL CREATININE (test code = 2214) 0.98 MG/DL eGFR (2020 CKD-EPI) (test code 65 ML/MIN/1.73 = 17656) CALC BUN/CREAT (test code = 19 RATIO [...] code = 2219) 48 U/L COMPREHENSIVE METABOLIC [id number] 00:00:00 Test Item Value Reference Range Interpretation Comments GLUCOSE (test code = 2217) 119 MG/DL BUN (test code = 2208) 19 MG/DL CREATININE (test code = 2214) 0.98 MG/DL eGFR (2020 CKD-EPI) (test code 65 ML/MIN/1.73 = 63291) CALC BUN/CREAT (test code = 19 RATIO [...] (test code = 2219) 48 U/L VITAMIN [id number] 00:00:00 Test Item Value Reference Range Interpretation Comments VITAMIN B-12 (test code = 2840) 647 PG/ML VITAMIN [id number] 00:00:00 Test Item Value Reference Range Interpretation Comments VITAMIN B-12 (test code = 2840) 647 PG/ML VITAMIN [id number] 00:00:00 Test Item Value Reference Range Interpretation Comments VITAMIN B-12 (test code = 2840) 647 PG/ML VITAMIN D, 25 [id number] 00:00:00 Test Item Value Reference Range Interpretation Comments VITAMIN D, 25 OH (test code = 4958) 18 NG/ML VITAMIN D, 25 [id number] 00:00:00 Test Item Value Reference Range Interpretation Comments VITAMIN D, 25 OH (test code = 4958) 18 NG/ML CULTURE, [id number] 12:01:26SPECIMEN NUMBER: [id number] CULTURE, URINE SPECIMEN NUMBER: [id number] SPECIMEN COMMENT: URINE SOURCE:URINE REPORT STATUS: FINAL FINAL REPORT: 10/03/2021 10-50,000 CFU/ML MIXED UROGENITAL SOBEIDA UNLESS OT HERWISE INDICATED, ALL TESTING PERFORMED [facility] [address] [place] [address] COMPUTER BUILDER: LILLI VELAZQUEZ M.D. CLIA NUMBER [id number] [place] [place] [id number], [id number] 00:00:00 Test Item Value Reference Range Interpretation Comments CULTURE, URINE (test SPECIMEN NUMBER: code = 35269) [id number] CULTURE, [id number] 00:00:00 Test Item Value Reference Range Interpretation Comments CULTURE, URINE (test SPECIMEN NUMBER: code = 18651) [id number] CULTURE, [id number] 00:00:00 Test Item Value Reference Range Interpretation Comments CULTURE, URINE (test SPECIMEN NUMBER: code = 67869) [id number] CULTURE, [id number] 00:00:00 Test Item Value Reference Range Interpretation Comments CULTURE, URINE (test SPECIMEN NUMBER: code = 83479) [id number] CULTURE, [id number] 00:00:00 Test Item Value Reference Range Interpretation Comments CULTURE, URINE (test SPECIMEN NUMBER: code = 42996) [id number] CULTURE, [id number] 00:00:00 Test Item Value Reference Range Interpretation Comments CULTURE, URINE (test SPECIMEN NUMBER: code = 61861) [id number] CULTURE, [id number] 00:00:00 Test Item Value Reference Range Interpretation Comments CULTURE, URINE (test SPECIMEN NUMBER: code = 26336) [id number] CULTURE, [id number] 00:00:00 Test Item Value Reference Range Interpretation Comments CULTURE, URINE (test SPECIMEN NUMBER: code = 72998) [id number] CULTURE, [id number] 00:00:00 Test Item Value Reference Range Interpretation Comments CULTURE, URINE (test SPECIMEN NUMBER: code = 34934) [id number] CULTURE, [id number] 00:00:00 Test Item Value Reference Range Interpretation Comments CULTURE, URINE (test SPECIMEN NUMBER: code = 55232) [id number] CULTURE, [id number] 00:00:00 Test Item Value Reference Range Interpretation Comments CULTURE, URINE (test SPECIMEN NUMBER: code = 29605) [id number] TSH, THIRD [id number] 06:16:09 Test Item Value Reference Range Interpretation Comments TSH, THIRD <0.010 UIU/ML 0.400-4.100 L UNLESS OTHERW ISE GENERATION (test INDICATED, ALL code = 2821) TESTING PERFORM ED ATCL[facility]ICAL PATH [facility], [address] DIRECTOR: LILLI VELAZQUEZ M.D. CLIA NUMBER [id number] CAP ACCREDITATION N O. [id number] HEMOGLOBIN [id number] 05:23:24 Test Item Value Reference Range Interpretation Comments HEMOGLOBIN A1c (test 6.7 % 4.2-5.6 H [employer] AN DIABETES code = 87504) ASSOCIATION [employer] FOR HGB A1C: PREDIABETES/INC REASED [...] TESTING OR LABORATORY C ONSULTATION. COMPREHENSIVE METABOLIC [id number] 04:45:06 Test Item Value Reference Range Interpretation Comments GLUCOSE (test code = 266 MG/DL 70-99 H 2216) BUN (test code = 17 MG/DL 11-26) CREATININE (test 0.92 MG/DL 0.60-1.30 code = 2214) eGFR (2020 CKD-EPI) 70 ML/MIN/1.73 >60 (test code = 91115) CALC BUN/CREAT (test 18 RATIO 6-28 code = 2235) SODIUM (test code = 136 MEQ/L 569-089 4116) POTASSIUM (test code 5.3 MEQ/L 3.5-5.4 = 2227) CHLORIDE (test code 98 MEQ/L 95-107 = 221) CARBON DIOXIDE (test 22 MEQ/L 19-31 code = 2206) CALCIUM (test code = 8.8 MG/DL 8.5-10.5 2208) PROTEIN, TOTAL (test 7.4 G/DL 6.1-8.3 code = 222) ALBUMIN (test code = 4.1 G/DL 3.5-5.2 [...] code = 29 U/L 5-40 2218) HEMOGLOBIN [id number] 00:00:00 Test Item Value Reference Range Interpretation Comments HEMOGLOBIN A1c (test code = 78574) 6.7 % HEMOGLOBIN [id number] 00:00:00 Test Item Value Reference Range Interpretation Comments HEMOGLOBIN A1c (test code = 28645) 6.7 % HEMOGLOBIN [id number] 00:00:00 Test Item Value Reference Range Interpretation Comments HEMOGLOBIN A1c (test code = 06307) 6.7 % COMPREHENSIVE METABOLIC [id number] 00:00:00 Test Item Value Reference Range Interpretation Comments GLUCOSE (test code = 2217) 266 MG/DL BUN (test code = 2208) 17 MG/DL CREATININE (test code = 2214) 0.92 MG/DL eGFR (2020 CKD-EPI) (test code 70 ML/MIN/1.73 = 97120) CALC BUN/CREAT (test code = 18 RATIO 2235) SODIUM (test code = 2231) 136 MEQ/L POTASSIUM (test code = 2228) 5.3 MEQ/L CHLORIDE (test code = 2215) 98 MEQ/L CARBON DIOXIDE (test code = 22 MEQ/L 2206) CALCIUM (test code = 2209) 8.8 MG/DL PROTEIN, TOTAL (test code = 7.4 G/DL 222) ALBUMIN (test code = 2201) 4.1 G/DL CALC GLOBULIN (test code = 3.3 G/DL 2240) CALC A/G RATIO (test code = 1.2 RATIO 2234) BILIRUBIN, TOTAL (test code = 0.3 MG/DL 2206) ALKALINE PHOSPHATASE (test 88 U/L code = 2204) AST (test code = 2218) 32 U/L ALT (test code = 2219) 29 U/L COMPREHENSIVE METABOLIC [id number] 00:00:00 Test Item Value Reference Range Interpretation Comments GLUCOSE (test code = 2217) 266 MG/DL BUN (test code = 2208) 17 MG/DL CREATININE (test code = 2214) 0.92 MG/DL eGFR (2020 CKD-EPI) (test code 70 ML/MIN/1.73 = 45598) CALC BUN/CREAT (test code = 18 RATIO 2235) SODIUM (test code = 2231) 136 MEQ/L POTASSIUM (test code = 2228) 5.3 MEQ/L CHLORIDE (test code = 2215) 98 MEQ/L CARBON DIOXIDE (test code = 22 MEQ/L 2206) CALCIUM (test code = 2209) 8.8 MG/DL [...] ALT (test code = 2219) 29 U/L [id number] 00:00:00 Test Item Value Reference Range Interpretation Comments TSH, THIRD GENERATION (test <0.010 UIU/ML code = 2821) [id number] 00:00:00 Test Item Value Reference Range Interpretation Comments TSH, THIRD GENERATION (test <0.010 UIU/ML code = 2821) [id number] 00:00:00 Test Item Value Reference Range Interpretation Comments TSH, THIRD GENERATION (test <0.010 UIU/ML code = 2821) HEMOGLOBIN [id number] 00:00:00 Test Item Value Reference Range Interpretation Comments HEMOGLOBIN A1c (test code = 89872) 6.7 % HEMOGLOBIN [id number] 00:00:00 Test Item Value Reference Range Interpretation Comments HEMOGLOBIN A1c (test code = 21992) 6.7 % HEMOGLOBIN [id number] 00:00:00 Test Item Value Reference Range Interpretation Comments HEMOGLOBIN A1c (test code = 43683) 6.7 % COMPREHENSIVE METABOLIC [id number] 00:00:00 Test Item Value Reference Range Interpretation Comments GLUCOSE (test code = 2217) 266 MG/DL BUN (test code = 2208) 17 MG/DL CREATININE (test code = 2214) 0.92 MG/DL eGFR (2020 CKD-EPI) (test code 70 ML/MIN/1.73 = 66684) CALC BUN/CREAT (test code = 18 RATIO [...] code = 2219) 29 U/L COMPREHENSIVE METABOLIC [id number] 00:00:00 Test Item Value Reference Range Interpretation Comments GLUCOSE (test code = 2217) 266 MG/DL BUN (test code = 2208) 17 MG/DL CREATININE (test code = 2214) 0.92 MG/DL eGFR (2020 CKD-EPI) (test code 70 ML/MIN/1.73 = 70595) CALC BUN/CREAT (test code = 18 RATIO [...] ALT (test code = 2219) 29 U/L [id number] 00:00:00 Test Item Value Reference Range Interpretation Comments TSH, THIRD GENERATION (test <0.010 UIU/ML code = 2821) [id number] 00:00:00 Test Item Value Reference Range Interpretation Comments TSH, THIRD GENERATION (test <0.010 UIU/ML code = 2821) [id number] 00:00:00 Test Item Value Reference Range Interpretation Comments TSH, THIRD GENERATION (test <0.010 UIU/ML code = 2821) HEMOGLOBIN [id number] 00:00:00 Test Item Value Reference Range Interpretation Comments HEMOGLOBIN A1c (test code = 66278) 6.7 % HEMOGLOBIN [id number] 00:00:00 Test Item Value Reference Range Interpretation Comments HEMOGLOBIN A1c (test code = 91207) 6.7 % HEMOGLOBIN [id number] 00:00:00 Test Item Value Reference Range Interpretation Comments HEMOGLOBIN A1c (test code = 27065) 6.7 % COMPREHENSIVE METABOLIC [id number] 00:00:00 Test Item Value Reference Range Interpretation Comments GLUCOSE (test code = 2217) 266 MG/DL BUN (test code = 2208) 17 MG/DL CREATININE (test code = 2214) 0.92 MG/DL eGFR (2020 CKD-EPI) (test code 70 ML/MIN/1.73 = 09185) CALC BUN/CREAT (test code = 18 RATIO 2235) SODIUM (test code = 2231) 136 MEQ/L POTASSIUM (test code = 2228) 5.3 MEQ/L CHLORIDE (test code = 2215) 98 MEQ/L CARBON DIOXIDE (test code = 22 MEQ/L 2206) CALCIUM (test code = 2209) 8.8 MG/DL [...] code = 2219) 29 U/L COMPREHENSIVE METABOLIC [id number] 00:00:00 Test Item Value Reference Range Interpretation Comments GLUCOSE (test code = 2217) 266 MG/DL BUN (test code = 2208) 17 MG/DL CREATININE (test code = 2214) 0.92 MG/DL eGFR (2020 CKD-EPI) (test code 70 ML/MIN/1.73 = 24311) CALC BUN/CREAT (test code = 18 RATIO 2235) SODIUM (test code = 2231) 136 MEQ/L POTASSIUM (test code = 2228) 5.3 MEQ/L CHLORIDE (test code = 2215) 98 MEQ/L CARBON DIOXIDE (test code = 22 MEQ/L 2205) CALCIUM (test code = 2209) 8.8 MG/DL PROTEIN, TOTAL (test code = 7.4 G/DL 9) ALBUMIN (test code = 2201) 4.1 G/DL CALC GLOBULIN (test code = 3.3 G/DL 2240) CALC A/G RATIO (test code = 1.2 RATIO 2234) BILIRUBIN, TOTAL (test code = 0.3 MG/DL 2206) ALKALINE PHOSPHATASE (test 88 U/L code = 2204) AST (test code = 2218) 32 U/L ALT (test code = 2219) 29 U/L [id number] 00:00:00 Test Item Value Reference Range Interpretation Comments TSH, THIRD GENERATION (test <0.010 UIU/ML code = 2821) [id number] 00:00:00 Test Item Value Reference Range Interpretation Comments TSH, THIRD GENERATION (test <0.010 UIU/ML code = 2821) [id number] 00:00:00 Test Item Value Reference Range Interpretation Comments TSH, THIRD GENERATION (test <0.010 UIU/ML code = 2821) HEMOGLOBIN [id number] 00:00:00 Test Item Value Reference Range Interpretation Comments HEMOGLOBIN A1c (test code = 84475) 6.7 % HEMOGLOBIN [id number] 00:00:00 Test Item Value Reference Range Interpretation Comments HEMOGLOBIN A1c (test code = 78258) 6.7 % HEMOGLOBIN [id number] 00:00:00 Test Item Value Reference Range Interpretation Comments HEMOGLOBIN A1c (test code = 74369) 6.7 % COMPREHENSIVE METABOLIC [id number] 00:00:00 Test Item Value Reference Range Interpretation Comments GLUCOSE (test code = 2217) 266 MG/DL BUN (test code = 2208) 17 MG/DL CREATININE (test code = 2214) 0.92 MG/DL eGFR (2020 CKD-EPI) (test code 70 ML/MIN/1.73 = 40780) CALC BUN/CREAT (test code = 18 RATIO [...] code = 2219) 29 U/L COMPREHENSIVE METABOLIC [id number] 00:00:00 Test Item Value Reference Range Interpretation Comments GLUCOSE (test code = 2217) 266 MG/DL BUN (test code = 2208) 17 MG/DL CREATININE (test code = 2214) 0.92 MG/DL eGFR (2020 CKD-EPI) (test code 70 ML/MIN/1.73 = 84028) CALC BUN/CREAT (test code = 18 RATIO [...] ALT (test code = 2219) 29 U/L [id number] 00:00:00 Test Item Value Reference Range Interpretation Comments TSH, THIRD GENERATION (test <0.010 UIU/ML code = 2821) [id number] 00:00:00 Test Item Value Reference Range Interpretation Comments TSH, THIRD GENERATION (test <0.010 UIU/ML code = 2821) [id number] 00:00:00 Test Item Value Reference Range Interpretation Comments TSH, THIRD GENERATION (test <0.010 UIU/ML code = 2821) HEMOGLOBIN [id number] 00:00:00 Test Item Value Reference Range Interpretation Comments HEMOGLOBIN A1c (test code = 67664) 6.7 % HEMOGLOBIN [id number] 00:00:00 Test Item Value Reference Range Interpretation Comments HEMOGLOBIN A1c (test code = 01539) 6.7 % COMPREHENSIVE METABOLIC [id number] 00:00:00 Test Item Value Reference Range Interpretation Comments GLUCOSE (test code = 2217) 266 MG/DL BUN (test code = 2208) 17 MG/DL CREATININE (test code = 2214) 0.92 MG/DL eGFR (2020 CKD-EPI) (test code 70 ML/MIN/1.73 = 85697) CALC BUN/CREAT (test code = 18 RATIO [...] ALT (test code = 2219) 29 U/L [id number] 00:00:00 Test Item Value Reference Range Interpretation Comments TSH, THIRD GENERATION (test <0.010 UIU/ML code = 2821) [id number] 00:00:00 Test Item Value Reference Range Interpretation Comments TSH, THIRD GENERATION (test <0.010 UIU/ML code = 2821) HEMOGLOBIN [id number] 00:00:00 Test Item Value Reference Range Interpretation Comments HEMOGLOBIN A1c (test code = 21326) 6.7 % HEMOGLOBIN [id number] 00:00:00 Test Item Value Reference Range Interpretation Comments HEMOGLOBIN A1c (test code = 80609) 6.7 % HEMOGLOBIN [id number] 00:00:00 Test Item Value Reference Range Interpretation Comments HEMOGLOBIN A1c (test code = 70483) 6.7 % COMPREHENSIVE METABOLIC [id number] 00:00:00 Test Item Value Reference Range Interpretation Comments GLUCOSE (test code = 2217) 266 MG/DL BUN (test code = 2208) 17 MG/DL CREATININE (test code = 2214) 0.92 MG/DL eGFR (2020 CKD-EPI) (test code 70 ML/MIN/1.73 = 99414) CALC BUN/CREAT (test code = 18 RATIO 2235) SODIUM (test code = 2231) 136 MEQ/L POTASSIUM (test code = 2228) 5.3 MEQ/L CHLORIDE (test code = 2215) 98 MEQ/L CARBON DIOXIDE (test code = 22 MEQ/L 2206) CALCIUM (test code = 2209) 8.8 MG/DL PROTEIN, TOTAL (test code = 7.4 G/DL 222) ALBUMIN (test code = 2201) 4.1 G/DL CALC GLOBULIN (test code = 3.3 G/DL 2240) CALC A/G RATIO (test code = 1.2 RATIO 2234) BILIRUBIN, TOTAL (test code = 0.3 MG/DL 2206) ALKALINE PHOSPHATASE (test 88 U/L code = 2204) AST (test code = 2218) 32 U/L ALT (test code = 2219) 29 U/L COMPREHENSIVE METABOLIC [id number] 00:00:00 Test Item Value Reference Range Interpretation Comments GLUCOSE (test code = 2217) 266 MG/DL BUN (test code = 2208) 17 MG/DL CREATININE (test code = 2214) 0.92 MG/DL eGFR (2020 CKD-EPI) (test code 70 ML/MIN/1.73 = 74030) CALC BUN/CREAT (test code = 18 RATIO [...] ALT (test code = 2219) 29 U/L [id number] 00:00:00 Test Item Value Reference Range Interpretation Comments TSH, THIRD GENERATION (test <0.010 UIU/ML code = 2821) [id number] 00:00:00 Test Item Value Reference Range Interpretation Comments TSH, THIRD GENERATION (test <0.010 UIU/ML code = 2821) [id number] 00:00:00 Test Item Value Reference Range Interpretation Comments TSH, THIRD GENERATION (test <0.010 UIU/ML code = 2821) TSH, THIRD [id number] 06:18:54 Test Item Value Reference Range Interpretation Comments TSH, THIRD GENERATION (test code 0.190 UIU/ML 0.400-4.100 L = 2821) HEMOGLOBIN [id number] 03:11:56 Test Item Value Reference Range Interpretation Comments HEMOGLOBIN A1c (test 8.4 % 4.2-5.6 H [employer]ES code = 81789) ASSOCIATION [employer] FOR HGB A1C: PREDIABETES/INC REASED [...] TESTING OR LABORATORY C ONSULTATION. COMPREHENSIVE METABOLIC [id number] 03:11:06 Test Item Value Reference Range Interpretation Comments GLUCOSE (test code = 141 MG/DL 70-99 H 2216) BUN (test code = 31 MG/DL 8-23 H 2207) CREATININE (test 1.07 MG/DL 0.60-1.30 code = 2214) eGFR (2020 CKD-EPI) 59 ML/MIN/1.73 >60 L (test code = 49248) CALC BUN/CREAT (test 29 RATIO 6-28 H code = 2235) SODIUM (test code = 141 MEQ/L 652-448 6211) POTASSIUM (test code 4.7 MEQ/L 3.5-5.4 = [...] = 41 U/L 5-40 H 2218) LIPID [id number] 03:11:06 Test Item Value Reference Range Interpretation [...] MOREINFORMATION , SEE CLIENT ANNOUNCE MENT AT [email or web address] RISK RATIO LDL/HDL 1.28 RATIO <3.22 (test code = 2238) IRON, [id number] 03:11:06 Test Item Value Reference Range Interpretation Comments IRON, SERUM (test 59 UG/DL 37-145 UNLESS OT HERWISE code = 2222) INDICATED, ALL TESTING PERFORMED AT[facility] NICAL PATHOLOGY [facility] [employer] [address] [place] [address], [place] [address] RACH SHARP DIRECTOR: Mariana LOAIZA NUMBER [id number] CAP ACCREDITATION N O. [id number] HEMOGLOBIN [id number] 00:00:00 Test Item Value Reference Range Interpretation Comments HEMOGLOBIN A1c (test code = 52505) 8.4 % HEMOGLOBIN [id number] 00:00:00 Test Item Value Reference Range Interpretation Comments HEMOGLOBIN A1c (test code = 96478) 8.4 % HEMOGLOBIN [id number] 00:00:00 Test Item Value Reference Range Interpretation Comments HEMOGLOBIN A1c (test code = 27103) 8.4 % COMPREHENSIVE METABOLIC [id number] 00:00:00 Test Item Value Reference Range Interpretation Comments GLUCOSE (test code = 2217) 141 MG/DL BUN (test code = 2208) 31 MG/DL CREATININE (test code = 2214) 1.07 MG/DL eGFR (2020 CKD-EPI) (test code 59 ML/MIN/1.73 = 26832) CALC BUN/CREAT (test code = 29 RATIO [...] code = 2219) 41 U/L COMPREHENSIVE METABOLIC [id number] 00:00:00 Test Item Value Reference Range Interpretation Comments GLUCOSE (test code = 2217) 141 MG/DL BUN (test code = 2208) 31 MG/DL CREATININE (test code = 2214) 1.07 MG/DL eGFR (2020 CKD-EPI) (test code 59 ML/MIN/1.73 = 74067) CALC BUN/CREAT (test code = 29 RATIO 2235) SODIUM (test code = 2231) 141 MEQ/L POTASSIUM (test code = 2228) 4.7 MEQ/L CHLORIDE (test code = 2215) 99 MEQ/L CARBON DIOXIDE (test code = 26 MEQ/L 220) CALCIUM (test code = 2209) [...] (test code = 2219) 41 U/L LIPID [id number] 00:00:00 Test Item Value Reference Range Interpretation Comments CHOLESTEROL (test code = 2210) 113 MG/DL TRIGLYCERIDES (test code = 2232) 165 MG/DL HDL CHOLESTEROL (test code = 2220) 39 MG/DL CALC LDL CHOL (test code = 2237) 50 MG/DL RISK RATIO LDL/HDL (test code = 1.28 RATIO 2238) LIPID [id number] 00:00:00 Test Item Value Reference Range Interpretation Comments CHOLESTEROL (test code = 2210) 113 MG/DL TRIGLYCERIDES (test code = 2232) 165 MG/DL HDL CHOLESTEROL (test code = 2220) 39 MG/DL CALC LDL CHOL (test code = 2237) 50 MG/DL RISK RATIO LDL/HDL (test code = 1.28 RATIO 2238) [id number] 00:00:00 Test Item Value Reference Range Interpretation Comments TSH, THIRD GENERATION (test code 0.190 UIU/ML = 2821) [id number] 00:00:00 Test Item Value Reference Range Interpretation Comments TSH, THIRD GENERATION (test code 0.190 UIU/ML = 2821) [id number] 00:00:00 Test Item Value Reference Range Interpretation Comments TSH, THIRD GENERATION (test code 0.190 UIU/ML = 2821) IRON, [id number] 00:00:00 Test Item Value Reference Range Interpretation Comments IRON, SERUM (test code = 2222) 59 UG/DL IRON, [id number] 00:00:00 Test Item Value Reference Range Interpretation Comments IRON, SERUM (test code = 2222) 59 UG/DL HEMOGLOBIN [id number] 00:00:00 Test Item Value Reference Range Interpretation Comments HEMOGLOBIN A1c (test code = 58140) 8.4 % HEMOGLOBIN [id number] 00:00:00 Test Item Value Reference Range Interpretation Comments HEMOGLOBIN A1c (test code = 68459) 8.4 % HEMOGLOBIN [id number] 00:00:00 Test Item Value Reference Range Interpretation Comments HEMOGLOBIN A1c (test code = 19033) 8.4 % HEMOGLOBIN [id number] 00:00:00 Test Item Value Reference Range Interpretation Comments HEMOGLOBIN A1c (test code = 55504) 8.4 % COMPREHENSIVE METABOLIC [id number] 00:00:00 Test Item Value Reference Range Interpretation Comments GLUCOSE (test code = 2217) 141 MG/DL BUN (test code = 2208) 31 MG/DL CREATININE (test code = 2214) 1.07 MG/DL eGFR (2020 CKD-EPI) (test code 59 ML/MIN/1.73 = 14972) CALC BUN/CREAT (test code = 29 RATIO [...] code = 2219) 41 U/L COMPREHENSIVE METABOLIC [id number] 00:00:00 Test Item Value Reference Range Interpretation Comments GLUCOSE (test code = 2217) 141 MG/DL BUN (test code = 2208) 31 MG/DL CREATININE (test code = 2214) 1.07 MG/DL eGFR (2020 CKD-EPI) (test code 59 ML/MIN/1.73 = 39636) CALC BUN/CREAT (test code = 29 RATIO [...] (test code = 2219) 41 U/L HEMOGLOBIN [id number] 00:00:00 Test Item Value Reference Range Interpretation Comments HEMOGLOBIN A1c (test code = 12881) 8.4 % LIPID [id number] 00:00:00 Test Item Value Reference Range Interpretation Comments CHOLESTEROL (test code = 2210) 113 MG/DL TRIGLYCERIDES (test code = 2232) 165 MG/DL HDL CHOLESTEROL (test code = 2220) 39 MG/DL CALC LDL CHOL (test code = 2237) 50 MG/DL RISK RATIO LDL/HDL (test code = 1.28 RATIO 2238) LIPID [id number] 00:00:00 Test Item Value Reference Range Interpretation Comments CHOLESTEROL (test code = 2210) 113 MG/DL TRIGLYCERIDES (test code = 2232) 165 MG/DL HDL CHOLESTEROL (test code = 2220) 39 MG/DL CALC LDL CHOL (test code = 2237) 50 MG/DL RISK RATIO LDL/HDL (test code = 1.28 RATIO 2238) COMPREHENSIVE METABOLIC [id number] 00:00:00 Test Item Value Reference Range Interpretation Comments GLUCOSE (test code = 2217) 141 MG/DL BUN (test code = 2208) 31 MG/DL CREATININE (test code = 2214) 1.07 MG/DL eGFR (2020 CKD-EPI) (test code 59 ML/MIN/1.73 = 83457) CALC BUN/CREAT (test code = 29 RATIO [...] ALT (test code = 2219) 41 U/L [id number] 00:00:00 Test Item Value Reference Range Interpretation Comments TSH, THIRD GENERATION (test code 0.190 UIU/ML = 2821) [id number] 00:00:00 Test Item Value Reference Range Interpretation Comments TSH, THIRD GENERATION (test code 0.190 UIU/ML = 2821) [id number] 00:00:00 Test Item Value Reference Range Interpretation Comments TSH, THIRD GENERATION (test code 0.190 UIU/ML = 2821) IRON, [id number] 00:00:00 Test Item Value Reference Range Interpretation Comments IRON, SERUM (test code = 2222) 59 UG/DL IRON, [id number] 00:00:00 Test Item Value Reference Range Interpretation Comments IRON, SERUM (test code = 2222) 59 UG/DL LIPID [id number] 00:00:00 Test Item Value Reference Range Interpretation Comments CHOLESTEROL (test code = 2210) 113 MG/DL TRIGLYCERIDES (test code = 2232) 165 MG/DL HDL CHOLESTEROL (test code = 2220) 39 MG/DL CALC LDL CHOL (test code = 2237) 50 MG/DL RISK RATIO LDL/HDL (test code = 1.28 RATIO 2238) [id number] 00:00:00 Test Item Value Reference Range Interpretation Comments TSH, THIRD GENERATION (test code 0.190 UIU/ML = 2821) [id number] 00:00:00 Test Item Value Reference Range Interpretation Comments TSH, THIRD GENERATION (test code 0.190 UIU/ML = 2821) IRON, [id number] 00:00:00 Test Item Value Reference Range Interpretation Comments IRON, SERUM (test code = 2222) 59 UG/DL HEMOGLOBIN [id number] 00:00:00 Test Item Value Reference Range Interpretation Comments HEMOGLOBIN A1c (test code = 18138) 8.4 % HEMOGLOBIN [id number] 00:00:00 Test Item Value Reference Range Interpretation Comments HEMOGLOBIN A1c (test code = 87257) 8.4 % HEMOGLOBIN [id number] 00:00:00 Test Item Value Reference Range Interpretation Comments HEMOGLOBIN A1c (test code = 61582) 8.4 % COMPREHENSIVE METABOLIC [id number] 00:00:00 Test Item Value Reference Range Interpretation Comments GLUCOSE (test code = 2217) 141 MG/DL BUN (test code = 2208) 31 MG/DL CREATININE (test code = 2214) 1.07 MG/DL eGFR (2020 CKD-EPI) (test code 59 ML/MIN/1.73 = 09427) CALC BUN/CREAT (test code = 29 RATIO [...] code = 2219) 41 U/L COMPREHENSIVE METABOLIC [id number] 00:00:00 Test Item Value Reference Range Interpretation Comments GLUCOSE (test code = 2217) 141 MG/DL BUN (test code = 2208) 31 MG/DL CREATININE (test code = 2214) 1.07 MG/DL eGFR (2020 CKD-EPI) (test code 59 ML/MIN/1.73 = 42371) CALC BUN/CREAT (test code = 29 RATIO [...] (test code = 2219) 41 U/L LIPID [id number] 00:00:00 Test Item Value Reference Range Interpretation Comments CHOLESTEROL (test code = 2210) 113 MG/DL TRIGLYCERIDES (test code = 2232) 165 MG/DL HDL CHOLESTEROL (test code = 2220) 39 MG/DL CALC LDL CHOL (test code = 2237) 50 MG/DL RISK RATIO LDL/HDL (test code = 1.28 RATIO 2238) LIPID [id number] 00:00:00 Test Item Value Reference Range Interpretation Comments CHOLESTEROL (test code = 2210) 113 MG/DL TRIGLYCERIDES (test code = 2232) 165 MG/DL HDL CHOLESTEROL (test code = 2220) 39 MG/DL CALC LDL CHOL (test code = 2237) 50 MG/DL RISK RATIO LDL/HDL (test code = 1.28 RATIO 2238) [id number] 00:00:00 Test Item Value Reference Range Interpretation Comments TSH, THIRD GENERATION (test code 0.190 UIU/ML = 2821) [id number] 00:00:00 Test Item Value Reference Range Interpretation Comments TSH, THIRD GENERATION (test code 0.190 UIU/ML = 2821) [id number] 00:00:00 Test Item Value Reference Range Interpretation Comments TSH, THIRD GENERATION (test code 0.190 UIU/ML = 2821) IRON, [id number] 00:00:00 Test Item Value Reference Range Interpretation Comments IRON, SERUM (test code = 2222) 59 UG/DL IRON, [id number] 00:00:00 Test Item Value Reference Range Interpretation Comments IRON, SERUM (test code = 2222) 59 UG/DL HEMOGLOBIN [id number] 00:00:00 Test Item Value Reference Range Interpretation Comments HEMOGLOBIN A1c (test code = 37812) 8.4 % HEMOGLOBIN [id number] 00:00:00 Test Item Value Reference Range Interpretation Comments HEMOGLOBIN A1c (test code = 60656) 8.4 % HEMOGLOBIN [id number] 00:00:00 Test Item Value Reference Range Interpretation Comments HEMOGLOBIN A1c (test code = 25650) 8.4 % COMPREHENSIVE METABOLIC [id number] 00:00:00 Test Item Value Reference Range Interpretation Comments GLUCOSE (test code = 2217) 141 MG/DL BUN (test code = 2208) 31 MG/DL CREATININE (test code = 2214) 1.07 MG/DL eGFR (2020 CKD-EPI) (test code 59 ML/MIN/1.73 = 93791) CALC BUN/CREAT (test code = 29 RATIO [...] code = 2219) 41 U/L COMPREHENSIVE METABOLIC [id number] 00:00:00 Test Item Value Reference Range Interpretation Comments GLUCOSE (test code = 2217) 141 MG/DL BUN (test code = 2208) 31 MG/DL CREATININE (test code = 2214) 1.07 MG/DL eGFR (2020 CKD-EPI) (test code 59 ML/MIN/1.73 = 25221) CALC BUN/CREAT (test code = 29 RATIO [...] (test code = 2219) 41 U/L LIPID [id number] 00:00:00 Test Item Value Reference Range Interpretation Comments CHOLESTEROL (test code = 2210) 113 MG/DL TRIGLYCERIDES (test code = 2232) 165 MG/DL HDL CHOLESTEROL (test code = 2220) 39 MG/DL CALC LDL CHOL (test code = 2237) 50 MG/DL RISK RATIO LDL/HDL (test code = 1.28 RATIO 2238) LIPID [id number] 00:00:00 Test Item Value Reference Range Interpretation Comments CHOLESTEROL (test code = 2210) 113 MG/DL TRIGLYCERIDES (test code = 2232) 165 MG/DL HDL CHOLESTEROL (test code = 2220) 39 MG/DL CALC LDL CHOL (test code = 2237) 50 MG/DL RISK RATIO LDL/HDL (test code = 1.28 RATIO 2238) [id number] 00:00:00 Test Item Value Reference Range Interpretation Comments TSH, THIRD GENERATION (test code 0.190 UIU/ML = 2821) [id number] 00:00:00 Test Item Value Reference Range Interpretation Comments TSH, THIRD GENERATION (test code 0.190 UIU/ML = 2821) [id number] 00:00:00 Test Item Value Reference Range Interpretation Comments TSH, THIRD GENERATION (test code 0.190 UIU/ML = 2821) IRON, [id number] 00:00:00 Test Item Value Reference Range Interpretation Comments IRON, SERUM (test code = 2222) 59 UG/DL IRON, [id number] 00:00:00 Test Item Value Reference Range Interpretation Comments IRON, SERUM (test code = 2222) 59 UG/DL HEMOGLOBIN [id number] 00:00:00 Test Item Value Reference Range Interpretation Comments HEMOGLOBIN A1c (test code = 75229) 8.4 % HEMOGLOBIN [id number] 00:00:00 Test Item Value Reference Range Interpretation Comments HEMOGLOBIN A1c (test code = 85102) 8.4 % COMPREHENSIVE METABOLIC [id number] 00:00:00 Test Item Value Reference Range Interpretation Comments GLUCOSE (test code = 2217) 141 MG/DL BUN (test code = 2208) 31 MG/DL CREATININE (test code = 2214) 1.07 MG/DL eGFR (2020 CKD-EPI) (test code 59 ML/MIN/1.73 = 20863) CALC BUN/CREAT (test code = 29 RATIO [...] (test code = 2219) 41 U/L LIPID [id number] 00:00:00 Test Item Value Reference Range Interpretation Comments CHOLESTEROL (test code = 2210) 113 MG/DL TRIGLYCERIDES (test code = 2232) 165 MG/DL HDL CHOLESTEROL (test code = 2220) 39 MG/DL CALC LDL CHOL (test code = 2237) 50 MG/DL RISK RATIO LDL/HDL (test code = 1.28 RATIO 2238) [id number] 00:00:00 Test Item Value Reference Range Interpretation Comments TSH, THIRD GENERATION (test code 0.190 UIU/ML = 2821) [id number] 00:00:00 Test Item Value Reference Range Interpretation Comments TSH, THIRD GENERATION (test code 0.190 UIU/ML = 2821) IRON, [id number] 00:00:00 Test Item Value Reference Range Interpretation Comments IRON, SERUM (test code = 2222) 59 UG/DL HEMOGLOBIN [id number] 00:00:00 Test Item Value Reference Range Interpretation Comments HEMOGLOBIN A1c (test code = 03148) 8.4 % HEMOGLOBIN [id number] 00:00:00 Test Item Value Reference Range Interpretation Comments HEMOGLOBIN A1c (test code = 91995) 8.4 % HEMOGLOBIN [id number] 00:00:00 Test Item Value Reference Range Interpretation Comments HEMOGLOBIN A1c (test code = 68281) 8.4 % COMPREHENSIVE METABOLIC [id number] 00:00:00 Test Item Value Reference Range Interpretation Comments GLUCOSE (test code = 2217) 141 MG/DL BUN (test code = 2208) 31 MG/DL CREATININE (test code = 2214) 1.07 MG/DL eGFR (2020 CKD-EPI) (test code 59 ML/MIN/1.73 = 11608) CALC BUN/CREAT (test code = 29 RATIO [...] code = 2219) 41 U/L COMPREHENSIVE METABOLIC [id number] 00:00:00 Test Item Value Reference Range Interpretation Comments GLUCOSE (test code = 2217) 141 MG/DL BUN (test code = 2208) 31 MG/DL CREATININE (test code = 2214) 1.07 MG/DL eGFR (2020 CKD-EPI) (test code 59 ML/MIN/1.73 = 56358) CALC BUN/CREAT (test code = 29 RATIO [...] CALC GLOBULIN (test code = 3.5 G/DL 224) CALC A/G RATIO (test code = 1.3 RATIO 2234) BILIRUBIN, TOTAL (test code = 0.4 MG/DL 2206) ALKALINE PHOSPHATASE (test 67 U/L code = 2204) AST (test code = 2218) 49 U/L ALT (test code = 2219) 41 U/L LIPID [id number] 00:00:00 Test Item Value Reference Range Interpretation Comments CHOLESTEROL (test code = 2210) 113 MG/DL TRIGLYCERIDES (test code = 2232) 165 MG/DL HDL CHOLESTEROL (test code = 2220) 39 MG/DL CALC LDL CHOL (test code = 2237) 50 MG/DL RISK RATIO LDL/HDL (test code = 1.28 RATIO 2238) LIPID [id number] 00:00:00 Test Item Value Reference Range Interpretation Comments CHOLESTEROL (test code = 2210) 113 MG/DL TRIGLYCERIDES (test code = 2232) 165 MG/DL HDL CHOLESTEROL (test code = 2220) 39 MG/DL CALC LDL CHOL (test code = 2237) 50 MG/DL RISK RATIO LDL/HDL (test code = 1.28 RATIO 2238) [id number] 00:00:00 Test Item Value Reference Range Interpretation Comments TSH, THIRD GENERATION (test code 0.190 UIU/ML = 2821) [id number] 00:00:00 Test Item Value Reference Range Interpretation Comments TSH, THIRD GENERATION (test code 0.190 UIU/ML = 2821) [id number] 00:00:00 Test Item Value Reference Range Interpretation Comments TSH, THIRD GENERATION (test code 0.190 UIU/ML = 2821) IRON, [id number] 00:00:00 Test Item Value Reference Range Interpretation Comments IRON, SERUM (test code = 2222) 59 UG/DL IRON, [id number] 00:00:00 Test Item Value Reference Range Interpretation Comments IRON, SERUM (test code = 2222) 59 UG/DL ALBUMIN/CREATININE RATIO, URINE, [id number] 05:57:19 Test Item Value Reference Range Interpretation Comments CREATININE, URINE, 212.0 MG/DL NOT ESTAB CONC. (test code = 2072) ALBUMIN, URINE, 16.0 MG/DL Note: Test name is RANDOM (test code changed to Urine Albumin = 42290) from [employer] in in accordance with ADA and NKF Guidelines, and Albumin/Creatin ine ratio reference inter jamshid reflects those Guidelines. Jameel lytic methodology is unchanged. No r eference interval for Ra ndom Urine Albumin i s available. CALC 75 MG/G <30 H UNLESS OTHERWI SE ALBUMIN/CREAT, RND INDICATED , ALL TESTING (test code = PERFORMED ATCLI NICAL 09130) PATHOLOGY LABOR [facility], [facility]. [address] [place] [address] 4 LABORATORY DIRE CTOR: LILLI SIERRA M.D. CLIA NUMBER [id number] [place] [id number] HEMOGLOBIN [id number] 04:12:15 Test Item Value Reference Range Interpretation Comments HEMOGLOBIN A1c (test 9.1 % 4.2-5.6 H AMERIC AN DIABETES code = 31948) ASSOCIATION IDELINES FOR HGB A1C: PREDIABETES/INC REASED [...] ATE TESTING OR LABORATORY C ONSULTATION. HEMOGLOBIN [id number] 00:00:00 Test Item Value Reference Range Interpretation Comments HEMOGLOBIN A1c (test code = 06759) 9.1 % HEMOGLOBIN [id number] 00:00:00 Test Item Value Reference Range Interpretation Comments HEMOGLOBIN A1c (test code = 49563) 9.1 % HEMOGLOBIN [id number] 00:00:00 Test Item Value Reference Range Interpretation Comments HEMOGLOBIN A1c (test code = 85577) 9.1 % MICROALBUMIN/CREATININE, RANDOM AND [id number] 00:00:00 Test Item Value Reference Range Interpretation Comments CREATININE, URINE, CONC. (test 212.0 MG/DL code = 2072) ALBUMIN, URINE, RANDOM (test code 16.0 MG/DL = 40576) CALC ALBUMIN/CREAT, RND (test 75 MG/G code = 28218) MICROALBUMIN/CREATININE, RANDOM AND [id number] 00:00:00 Test Item Value Reference Range Interpretation Comments CREATININE, URINE, CONC. (test 212.0 MG/DL code = 2072) ALBUMIN, URINE, RANDOM (test code 16.0 MG/DL = 26044) CALC ALBUMIN/CREAT, RND (test 75 MG/G code = 15699) HEMOGLOBIN [id number] 00:00:00 Test Item Value Reference Range Interpretation Comments HEMOGLOBIN A1c (test code = 63360) 9.1 % HEMOGLOBIN [id number] 00:00:00 Test Item Value Reference Range Interpretation Comments HEMOGLOBIN A1c (test code = 93040) 9.1 % HEMOGLOBIN [id number] 00:00:00 Test Item Value Reference Range Interpretation Comments HEMOGLOBIN A1c (test code = 43508) 9.1 % HEMOGLOBIN [id number] 00:00:00 Test Item Value Reference Range Interpretation Comments HEMOGLOBIN A1c (test code = 85392) 9.1 % HEMOGLOBIN [id number] 00:00:00 Test Item Value Reference Range Interpretation Comments HEMOGLOBIN A1c (test code = 55743) 9.1 % MICROALBUMIN/CREATININE, RANDOM AND [id number] 00:00:00 Test Item Value Reference Range Interpretation Comments CREATININE, URINE, CONC. (test 212.0 MG/DL code = 2072) ALBUMIN, URINE, RANDOM (test code 16.0 MG/DL = 10837) CALC ALBUMIN/CREAT, RND (test 75 MG/G code = 43157) MICROALBUMIN/CREATININE, RANDOM AND [id number] 00:00:00 Test Item Value Reference Range Interpretation Comments CREATININE, URINE, CONC. (test 212.0 MG/DL code = 2072) ALBUMIN, URINE, RANDOM (test code 16.0 MG/DL = 78005) CALC ALBUMIN/CREAT, RND (test 75 MG/G code = 71985) MICROALBUMIN/CREATININE, RANDOM AND [id number] 00:00:00 Test Item Value Reference Range Interpretation Comments CREATININE, URINE, CONC. (test 212.0 MG/DL code = 2072) ALBUMIN, URINE, RANDOM (test code 16.0 MG/DL = 76535) CALC ALBUMIN/CREAT, RND (test 75 MG/G code = 25583) HEMOGLOBIN [id number] 00:00:00 Test Item Value Reference Range Interpretation Comments HEMOGLOBIN A1c (test code = 06274) 9.1 % HEMOGLOBIN [id number] 00:00:00 Test Item Value Reference Range Interpretation Comments HEMOGLOBIN A1c (test code = 77283) 9.1 % HEMOGLOBIN [id number] 00:00:00 Test Item Value Reference Range Interpretation Comments HEMOGLOBIN A1c (test code = 42214) 9.1 % MICROALBUMIN/CREATININE, RANDOM AND [id number] 00:00:00 Test Item Value Reference Range Interpretation Comments CREATININE, URINE, CONC. (test 212.0 MG/DL code = 2072) ALBUMIN, URINE, RANDOM (test code 16.0 MG/DL = 98302) CALC ALBUMIN/CREAT, RND (test 75 MG/G code = 09877) MICROALBUMIN/CREATININE, RANDOM AND [id number] 00:00:00 Test Item Value Reference Range Interpretation Comments CREATININE, URINE, CONC. (test 212.0 MG/DL code = 2072) ALBUMIN, URINE, RANDOM (test code 16.0 MG/DL = 49439) CALC ALBUMIN/CREAT, RND (test 75 MG/G code = 77440) HEMOGLOBIN [id number] 00:00:00 Test Item Value Reference Range Interpretation Comments HEMOGLOBIN A1c (test code = 73102) 9.1 % HEMOGLOBIN [id number] 00:00:00 Test Item Value Reference Range Interpretation Comments HEMOGLOBIN A1c (test code = 09506) 9.1 % HEMOGLOBIN [id number] 00:00:00 Test Item Value Reference Range Interpretation Comments HEMOGLOBIN A1c (test code = 33077) 9.1 % MICROALBUMIN/CREATININE, RANDOM AND [id number] 00:00:00 Test Item Value Reference Range Interpretation Comments CREATININE, URINE, CONC. (test 212.0 MG/DL code = 2072) ALBUMIN, URINE, RANDOM (test code 16.0 MG/DL = 44546) CALC ALBUMIN/CREAT, RND (test 75 MG/G code = 72494) MICROALBUMIN/CREATININE, RANDOM AND [id number] 00:00:00 Test Item Value Reference Range Interpretation Comments CREATININE, URINE, CONC. (test 212.0 MG/DL code = 2072) ALBUMIN, URINE, RANDOM (test code 16.0 MG/DL = 70624) CALC ALBUMIN/CREAT, RND (test 75 MG/G code = 62639) HEMOGLOBIN [id number] 00:00:00 Test Item Value Reference Range Interpretation Comments HEMOGLOBIN A1c (test code = 28606) 9.1 % HEMOGLOBIN [id number] 00:00:00 Test Item Value Reference Range Interpretation Comments HEMOGLOBIN A1c (test code = 22781) 9.1 % MICROALBUMIN/CREATININE, RANDOM AND [id number] 00:00:00 Test Item Value Reference Range Interpretation Comments CREATININE, URINE, CONC. (test 212.0 MG/DL code = 2072) ALBUMIN, URINE, RANDOM (test code 16.0 MG/DL = 81856) CALC ALBUMIN/CREAT, RND (test 75 MG/G code = 43741) HEMOGLOBIN [id number] 00:00:00 Test Item Value Reference Range Interpretation Comments HEMOGLOBIN A1c (test code = 39829) 9.1 % HEMOGLOBIN [id number] 00:00:00 Test Item Value Reference Range Interpretation Comments HEMOGLOBIN A1c (test code = 69062) 9.1 % HEMOGLOBIN [id number] 00:00:00 Test Item Value Reference Range Interpretation Comments HEMOGLOBIN A1c (test code = 08558) 9.1 % MICROALBUMIN/CREATININE, RANDOM AND [id number] 00:00:00 Test Item Value Reference Range Interpretation Comments CREATININE, URINE, CONC. (test 212.0 MG/DL code = 2072) ALBUMIN, URINE, RANDOM (test code 16.0 MG/DL = 46151) CALC ALBUMIN/CREAT, RND (test 75 MG/G code = 37529) MICROALBUMIN/CREATININE, RANDOM AND [id number] 00:00:00 Test Item Value Reference Range Interpretation Comments CREATININE, URINE, CONC. (test 212.0 MG/DL code = 2072) ALBUMIN, URINE, RANDOM (test code 16.0 MG/DL = 82908) CALC ALBUMIN/CREAT, RND (test 75 MG/G code = 80668) PATHOLOGIST SMEAR [id number] 00:00:00 Test Item Value Reference Range Interpretation Comments DIAGNOSIS: (test code = 8200) (NOTE) COMMENTS: (test code = 8205) (NOTE) MICROSCOPIC DESCRIPTION: (test (NOTE) code = 8210) PATHOLOGIST: (test code = 8250) (NOTE) CPT: (test code = 8400) 70094 WBC (test code = 1001) 2.7 K/UL [...] NUCLEATED RBCS (test code = 0.00 K/UL 88375) COMMENTS (test code = 1016) (NOTE) PATHOLOGIST SMEAR [id number] 00:00:00 Test Item Value Reference Range Interpretation Comments DIAGNOSIS: (test code = 8200) (NOTE) COMMENTS: (test code = 8205) (NOTE) MICROSCOPIC DESCRIPTION: (test (NOTE) code = 8210) PATHOLOGIST: (test code = 8250) (NOTE) CPT: (test code = 8400) 37981 WBC (test code = 1001) 2.7 K/UL [...] NUCLEATED RBCS (test code = 0.00 K/UL 00936) COMMENTS (test code = 1016) (NOTE) PATHOLOGIST SMEAR [id number] 00:00:00 Test Item Value Reference Range Interpretation Comments DIAGNOSIS: (test code = 8200) (NOTE) COMMENTS: (test code = 8205) (NOTE) MICROSCOPIC DESCRIPTION: (test (NOTE) code = 8210) PATHOLOGIST: (test code = 8250) (NOTE) CPT: (test code = 8400) 43283 WBC (test code = 1001) 2.7 K/UL [...] NUCLEATED RBCS (test code = 0.00 K/UL 61866) COMMENTS (test code = 1016) (NOTE) PATHOLOGIST SMEAR [id number] 00:00:00 Test Item Value Reference Range Interpretation Comments DIAGNOSIS: (test code = 8200) (NOTE) COMMENTS: (test code = 8205) (NOTE) MICROSCOPIC DESCRIPTION: (test (NOTE) code = 8210) PATHOLOGIST: (test code = 8250) (NOTE) CPT: (test code = 8400) 26702 WBC (test code = 1001) 2.7 K/UL [...] NUCLEATED RBCS (test code = 0.00 K/UL 08397) COMMENTS (test code = 1016) (NOTE) PATHOLOGIST SMEAR [id number] 00:00:00 Test Item Value Reference Range Interpretation Comments DIAGNOSIS: (test code = 8200) (NOTE) COMMENTS: (test code = 8205) (NOTE) MICROSCOPIC DESCRIPTION: (test (NOTE) code = 8210) PATHOLOGIST: (test code = 8250) (NOTE) CPT: (test code = 8400) 12038 WBC (test code = 1001) 2.7 K/UL [...] NUCLEATED RBCS (test code = 0.00 K/UL 98554) COMMENTS (test code = 1016) (NOTE) PATHOLOGIST SMEAR [id number] 00:00:00 Test Item Value Reference Range Interpretation Comments DIAGNOSIS: (test code = 8200) (NOTE) COMMENTS: (test code = 8205) (NOTE) MICROSCOPIC DESCRIPTION: (test (NOTE) code = 8210) PATHOLOGIST: (test code = 8250) (NOTE) CPT: (test code = 8400) 74527 WBC (test code = 1001) 2.7 K/UL [...] NUCLEATED RBCS (test code = 0.00 K/UL 72181) COMMENTS (test code = 1016) (NOTE) PATHOLOGIST SMEAR [id number] 00:00:00 Test Item Value Reference Range Interpretation Comments DIAGNOSIS: (test code = 8200) (NOTE) COMMENTS: (test code = 8205) (NOTE) MICROSCOPIC DESCRIPTION: (test (NOTE) code = 8210) PATHOLOGIST: (test code = 8250) (NOTE) CPT: (test code = 8400) 22671 WBC (test code = 1001) 2.7 K/UL [...] NUCLEATED RBCS (test code = 0.00 K/UL 06707) COMMENTS (test code = 1016) (NOTE) PATHOLOGIST SMEAR [id number] 00:00:00 Test Item Value Reference Range Interpretation Comments DIAGNOSIS: (test code = 8200) (NOTE) COMMENTS: (test code = 8205) (NOTE) MICROSCOPIC DESCRIPTION: (test (NOTE) code = 8210) PATHOLOGIST: (test code = 8250) (NOTE) CPT: (test code = 8400) 09697 WBC (test code = 1001) 2.7 K/UL [...] NUCLEATED RBCS (test code = 0.00 K/UL 34963) COMMENTS (test code = 1016) (NOTE) PATHOLOGIST SMEAR [id number] 00:00:00 Test Item Value Reference Range Interpretation Comments DIAGNOSIS: (test code = 8200) (NOTE) COMMENTS: (test code = 8205) (NOTE) MICROSCOPIC DESCRIPTION: (test (NOTE) code = 8210) PATHOLOGIST: (test code = 8250) (NOTE) CPT: (test code = 8400) 82359 WBC (test code = 1001) 2.7 K/UL [...] NUCLEATED RBCS (test code = 0.00 K/UL 61627) COMMENTS (test code = 1016) (NOTE) PATHOLOGIST SMEAR [id number] 00:00:00 Test Item Value Reference Range Interpretation Comments DIAGNOSIS: (test code = 8200) (NOTE) COMMENTS: (test code = 8205) (NOTE) MICROSCOPIC DESCRIPTION: (test (NOTE) code = 8210) PATHOLOGIST: (test code = 8250) (NOTE) CPT: (test code = 8400) 70173 WBC (test code = 1001) 2.7 K/UL [...] NUCLEATED RBCS (test code = 0.00 K/UL 68449) COMMENTS (test code = 1016) (NOTE) PATHOLOGIST SMEAR [id number] 00:00:00 Test Item Value Reference Range Interpretation Comments DIAGNOSIS: (test code = 8200) (NOTE) COMMENTS: (test code = 8205) (NOTE) MICROSCOPIC DESCRIPTION: (test (NOTE) code = 8210) PATHOLOGIST: (test code = 8250) (NOTE) CPT: (test code = 8400) 49656 WBC (test code = 1001) 2.7 K/UL [...] NUCLEATED RBCS (test code = 0.00 K/UL 22943) COMMENTS (test code = 1016) (NOTE) PATHOLOGIST SMEAR [id number] 00:00:00 Test Item Value Reference Range Interpretation Comments DIAGNOSIS: (test code = 8200) (NOTE) COMMENTS: (test code = 8205) (NOTE) MICROSCOPIC DESCRIPTION: (test (NOTE) code = 8210) PATHOLOGIST: (test code = 8250) (NOTE) CPT: (test code = 8400) 07403 WBC (test code = 1001) 2.7 K/UL [...] NUCLEATED RBCS (test code = 0.00 K/UL 47895) COMMENTS (test code = 1016) (NOTE) [id number] 00:00:00 Test Item Value Reference Range Interpretation Comments FERRITIN (test code = 2074) 42 NG/ML [id number] 00:00:00 Test Item Value Reference Range Interpretation Comments FERRITIN (test code = 2074) 42 NG/ML [id number] 00:00:00 Test Item Value Reference Range Interpretation Comments TRANSFERRIN (test code = 6) 281 MG/DL [id number] 00:00:00 Test Item Value Reference Range Interpretation Comments TRANSFERRIN (test code = 6) 281 MG/DL IRON BINDING CAPACITY AND IRON AND % [id number] 00:00:00 Test Item Value Reference Range Interpretation Comments IRON, SERUM (test code = 2221) 28 UG/DL UNSATURATED IBC (test code = ) 315 UG/DL CALC TOTAL IBC (test code = 2076) 343 UG/DL CALC % IRON SAT (test code = 9) 8 % IRON BINDING CAPACITY AND IRON AND % [id number] 00:00:00 Test Item Value Reference Range Interpretation Comments IRON, SERUM (test code = 2) 28 UG/DL UNSATURATED IBC (test code = 33151) 315 UG/DL CALC TOTAL IBC (test code = 2076) 343 UG/DL CALC % IRON SAT (test code = 2078) 8 % PROTIME AND [id number] 00:00:00 Test Item Value Reference Range Interpretation Comments PROTHROMBIN TIME (PT) (test code 14.8 SECONDS = 1402) INR (test code = 18438) 1.1 PTT (test code = 1403) 35.8 SECONDS PROTIME AND [id number] 00:00:00 Test Item Value Reference Range Interpretation Comments PROTHROMBIN TIME (PT) (test code 14.8 SECONDS = 1402) INR (test code = 70672) 1.1 PTT (test code = 1403) 35.8 SECONDS RHEUMATOID FACTOR, [id number] 00:00:00 Test Item Value Reference Range Interpretation Comments RHEUMATOID FACTOR, QUANT (test code <10 IU/ML = 3502) RHEUMATOID FACTOR, [id number] 00:00:00 Test Item Value Reference Range Interpretation Comments RHEUMATOID FACTOR, QUANT (test code <10 IU/ML = 3502) RHEUMATOID FACTOR, [id number] 00:00:00 Test Item Value Reference Range Interpretation Comments RHEUMATOID FACTOR, QUANT (test code <10 IU/ML = 3502) CCP [id number] 00:00:00 Test Item Value Reference Range Interpretation Comments CCP IgG (test code = 47809) <0.5 U/ML CCP [id number] 00:00:00 Test Item Value Reference Range Interpretation Comments CCP IgG (test code = 60834) <0.5 U/ML CCP [id number] 00:00:00 Test Item Value Reference Range Interpretation Comments CCP IgG (test code = 30934) <0.5 U/ML ASH (SM) [id number] 00:00:00 Test Item Value Reference Range Interpretation Comments ASH (Sm) ANTIBODY (test code = <0.2 AI 98594) ASH (SM) [id number] 00:00:00 Test Item Value Reference Range Interpretation Comments ASH (Sm) ANTIBODY (test code = <0.2 AI 13938) DNA DS [id number] 00:00:00 Test Item Value Reference Range Interpretation Comments dsDNA ANTIBODY (test code = 4287) 1.0 IU/ML DNA DS [id number] 00:00:00 Test Item Value Reference Range Interpretation Comments dsDNA ANTIBODY (test code = 4287) 1.0 IU/ML [id number] 00:00:00 Test Item Value Reference Range Interpretation Comments FERRITIN (test code = 207) 42 NG/ML [id number] 00:00:00 Test Item Value Reference Range Interpretation Comments FERRITIN (test code = 2075) 42 NG/ML [id number] 00:00:00 Test Item Value Reference Range Interpretation Comments FERRITIN (test code = 2075) 42 NG/ML [id number] 00:00:00 Test Item Value Reference Range Interpretation Comments TRANSFERRIN (test code = 4936) 281 MG/DL [id number] 00:00:00 Test Item Value Reference Range Interpretation Comments TRANSFERRIN (test code = 4936) 281 MG/DL IRON BINDING CAPACITY AND IRON AND % [id number] 00:00:00 Test Item Value Reference Range Interpretation Comments IRON, SERUM (test code = 2222) 28 UG/DL UNSATURATED IBC (test code = 76719) 315 UG/DL CALC TOTAL IBC (test code = 7) 343 UG/DL CALC % IRON SAT (test code = 9) 8 % IRON BINDING CAPACITY AND IRON AND % [id number] 00:00:00 Test Item Value Reference Range Interpretation Comments IRON, SERUM (test code = 2222) 28 UG/DL UNSATURATED IBC (test code = 84167) 315 UG/DL CALC TOTAL IBC (test code = 7) 343 UG/DL CALC % IRON SAT (test code = 9) 8 % PROTIME AND [id number] 00:00:00 Test Item Value Reference Range Interpretation Comments PROTHROMBIN TIME (PT) (test code 14.8 SECONDS = 1402) INR (test code = 41179) 1.1 PTT (test code = 1403) 35.8 SECONDS PROTIME AND [id number] 00:00:00 Test Item Value Reference Range Interpretation Comments PROTHROMBIN TIME (PT) (test code 14.8 SECONDS = 1402) INR (test code = 96626) 1.1 PTT (test code = 1403) 35.8 SECONDS RHEUMATOID FACTOR, [id number] 00:00:00 Test Item Value Reference Range Interpretation Comments RHEUMATOID FACTOR, QUANT (test code <10 IU/ML = 3502) RHEUMATOID FACTOR, [id number] 00:00:00 Test Item Value Reference Range Interpretation Comments RHEUMATOID FACTOR, QUANT (test code <10 IU/ML = 3502) RHEUMATOID FACTOR, [id number] 00:00:00 Test Item Value Reference Range Interpretation Comments RHEUMATOID FACTOR, QUANT (test code <10 IU/ML = 3502) CCP [id number] 00:00:00 Test Item Value Reference Range Interpretation Comments CCP IgG (test code = 56050) <0.5 U/ML [id number] 00:00:00 Test Item Value Reference Range Interpretation Comments TRANSFERRIN (test code = 4936) 281 MG/DL CCP [id number] 00:00:00 Test Item Value Reference Range Interpretation Comments CCP IgG (test code = 00423) <0.5 U/ML CCP [id number] 00:00:00 Test Item Value Reference Range Interpretation Comments CCP IgG (test code = 58076) <0.5 U/ML ASH (SM) [id number] 00:00:00 Test Item Value Reference Range Interpretation Comments ASH (Sm) ANTIBODY (test code = <0.2 AI 18706) ASH (SM) [id number] 00:00:00 Test Item Value Reference Range Interpretation Comments ASH (Sm) ANTIBODY (test code = <0.2 AI 85413) DNA DS [id number] 00:00:00 Test Item Value Reference Range Interpretation Comments dsDNA ANTIBODY (test code = 4287) 1.0 IU/ML DNA DS [id number] 00:00:00 Test Item Value Reference Range Interpretation Comments dsDNA ANTIBODY (test code = 4287) 1.0 IU/ML IRON BINDING CAPACITY AND IRON AND % [id number] 00:00:00 Test Item Value Reference Range Interpretation Comments IRON, SERUM (test code = 2222) 28 UG/DL UNSATURATED IBC (test code = 77803) 315 UG/DL CALC TOTAL IBC (test code = 7) 343 UG/DL CALC % IRON SAT (test code = 2078) 8 % PROTIME AND [id number] 00:00:00 Test Item Value Reference Range Interpretation Comments PROTHROMBIN TIME (PT) (test code 14.8 SECONDS = 1402) INR (test code = 98304) 1.1 PTT (test code = 1403) 35.8 SECONDS RHEUMATOID FACTOR, [id number] 00:00:00 Test Item Value Reference Range Interpretation Comments RHEUMATOID FACTOR, QUANT (test code <10 IU/ML = 3502) RHEUMATOID FACTOR, [id number] 00:00:00 Test Item Value Reference Range Interpretation Comments RHEUMATOID FACTOR, QUANT (test code <10 IU/ML = 3502) CCP [id number] 00:00:00 Test Item Value Reference Range Interpretation Comments CCP IgG (test code = 66104) <0.5 U/ML CCP [id number] 00:00:00 Test Item Value Reference Range Interpretation Comments CCP IgG (test code = 70004) <0.5 U/ML ASH (SM) [id number] 00:00:00 Test Item Value Reference Range Interpretation Comments ASH (Sm) ANTIBODY (test code = <0.2 AI 03038) DNA DS [id number] 00:00:00 Test Item Value Reference Range Interpretation Comments dsDNA ANTIBODY (test code = 4287) 1.0 IU/ML [id number] 00:00:00 Test Item Value Reference Range Interpretation Comments FERRITIN (test code = 2074) 42 NG/ML [id number] 00:00:00 Test Item Value Reference Range Interpretation Comments FERRITIN (test code = 2074) 42 NG/ML [id number] 00:00:00 Test Item Value Reference Range Interpretation Comments TRANSFERRIN (test code = 4936) 281 MG/DL [id number] 00:00:00 Test Item Value Reference Range Interpretation Comments TRANSFERRIN (test code = 4936) 281 MG/DL IRON BINDING CAPACITY AND IRON AND % [id number] 00:00:00 Test Item Value Reference Range Interpretation Comments IRON, SERUM (test code = 2) 28 UG/DL UNSATURATED IBC (test code = ) 315 UG/DL CALC TOTAL IBC (test code = 2076) 343 UG/DL CALC % IRON SAT (test code = 2078) 8 % IRON BINDING CAPACITY AND IRON AND % [id number] 00:00:00 Test Item Value Reference Range Interpretation Comments IRON, SERUM (test code = 2) 28 UG/DL UNSATURATED IBC (test code = 06699) 315 UG/DL CALC TOTAL IBC (test code = 2076) 343 UG/DL CALC % IRON SAT (test code = 2078) 8 % PROTIME AND [id number] 00:00:00 Test Item Value Reference Range Interpretation Comments PROTHROMBIN TIME (PT) (test code 14.8 SECONDS = 1402) INR (test code = 25625) 1.1 PTT (test code = 1403) 35.8 SECONDS PROTIME AND [id number] 00:00:00 Test Item Value Reference Range Interpretation Comments PROTHROMBIN TIME (PT) (test code 14.8 SECONDS = 1402) INR (test code = 62842) 1.1 PTT (test code = 1403) 35.8 SECONDS RHEUMATOID FACTOR, [id number] 00:00:00 Test Item Value Reference Range Interpretation Comments RHEUMATOID FACTOR, QUANT (test code <10 IU/ML = 3502) RHEUMATOID FACTOR, [id number] 00:00:00 Test Item Value Reference Range Interpretation Comments RHEUMATOID FACTOR, QUANT (test code <10 IU/ML = 3502) RHEUMATOID FACTOR, [id number] 00:00:00 Test Item Value Reference Range Interpretation Comments RHEUMATOID FACTOR, QUANT (test code <10 IU/ML = 3502) CCP [id number] 00:00:00 Test Item Value Reference Range Interpretation Comments CCP IgG (test code = 94549) <0.5 U/ML CCP [id number] 00:00:00 Test Item Value Reference Range Interpretation Comments CCP IgG (test code = 90065) <0.5 U/ML CCP [id number] 00:00:00 Test Item Value Reference Range Interpretation Comments CCP IgG (test code = 57073) <0.5 U/ML ASH (SM) [id number] 00:00:00 Test Item Value Reference Range Interpretation Comments ASH (Sm) ANTIBODY (test code = <0.2 AI 72699) ASH (SM) [id number] 00:00:00 Test Item Value Reference Range Interpretation Comments ASH (Sm) ANTIBODY (test code = <0.2 AI 80899) DNA DS [id number] 00:00:00 Test Item Value Reference Range Interpretation Comments dsDNA ANTIBODY (test code = 4287) 1.0 IU/ML DNA DS [id number] 00:00:00 Test Item Value Reference Range Interpretation Comments dsDNA ANTIBODY (test code = 4287) 1.0 IU/ML [id number] 00:00:00 Test Item Value Reference Range Interpretation Comments FERRITIN (test code = 2075) 42 NG/ML [id number] 00:00:00 Test Item Value Reference Range Interpretation Comments FERRITIN (test code = 2075) 42 NG/ML [id number] 00:00:00 Test Item Value Reference Range Interpretation Comments TRANSFERRIN (test code = 4936) 281 MG/DL [id number] 00:00:00 Test Item Value Reference Range Interpretation Comments TRANSFERRIN (test code = 4936) 281 MG/DL IRON BINDING CAPACITY AND IRON AND % [id number] 00:00:00 Test Item Value Reference Range Interpretation Comments IRON, SERUM (test code = 2) 28 UG/DL UNSATURATED IBC (test code = ) 315 UG/DL CALC TOTAL IBC (test code = 2076) 343 UG/DL CALC % IRON SAT (test code = 2078) 8 % IRON BINDING CAPACITY AND IRON AND % [id number] 00:00:00 Test Item Value Reference Range Interpretation Comments IRON, SERUM (test code = 2) 28 UG/DL UNSATURATED IBC (test code = 23136) 315 UG/DL CALC TOTAL IBC (test code = 2076) 343 UG/DL CALC % IRON SAT (test code = 2078) 8 % PROTIME AND [id number] 00:00:00 Test Item Value Reference Range Interpretation Comments PROTHROMBIN TIME (PT) (test code 14.8 SECONDS = 1402) INR (test code = 85054) 1.1 PTT (test code = 1403) 35.8 SECONDS PROTIME AND [id number] 00:00:00 Test Item Value Reference Range Interpretation Comments PROTHROMBIN TIME (PT) (test code 14.8 SECONDS = 1402) INR (test code = 62748) 1.1 PTT (test code = 1403) 35.8 SECONDS RHEUMATOID FACTOR, [id number] 00:00:00 Test Item Value Reference Range Interpretation Comments RHEUMATOID FACTOR, QUANT (test code <10 IU/ML = 3502) RHEUMATOID FACTOR, [id number] 00:00:00 Test Item Value Reference Range Interpretation Comments RHEUMATOID FACTOR, QUANT (test code <10 IU/ML = 3502) RHEUMATOID FACTOR, [id number] 00:00:00 Test Item Value Reference Range Interpretation Comments RHEUMATOID FACTOR, QUANT (test code <10 IU/ML = 3502) CCP [id number] 00:00:00 Test Item Value Reference Range Interpretation Comments CCP IgG (test code = 93857) <0.5 U/ML CCP [id number] 00:00:00 Test Item Value Reference Range Interpretation Comments CCP IgG (test code = 44400) <0.5 U/ML CCP [id number] 00:00:00 Test Item Value Reference Range Interpretation Comments CCP IgG (test code = 40904) <0.5 U/ML ASH (SM) [id number] 00:00:00 Test Item Value Reference Range Interpretation Comments ASH (Sm) ANTIBODY (test code = <0.2 AI 31336) ASH (SM) [id number] 00:00:00 Test Item Value Reference Range Interpretation Comments ASH (Sm) ANTIBODY (test code = <0.2 AI 51086) DNA DS [id number] 00:00:00 Test Item Value Reference Range Interpretation Comments dsDNA ANTIBODY (test code = 4287) 1.0 IU/ML DNA DS [id number] 00:00:00 Test Item Value Reference Range Interpretation Comments dsDNA ANTIBODY (test code = 4287) 1.0 IU/ML [id number] 00:00:00 Test Item Value Reference Range Interpretation Comments FERRITIN (test code = 2075) 42 NG/ML [id number] 00:00:00 Test Item Value Reference Range Interpretation Comments TRANSFERRIN (test code = 4936) 281 MG/DL IRON BINDING CAPACITY AND IRON AND % [id number] 00:00:00 Test Item Value Reference Range Interpretation Comments IRON, SERUM (test code = 2222) 28 UG/DL UNSATURATED IBC (test code = 26247) 315 UG/DL CALC TOTAL IBC (test code = 2077) 343 UG/DL CALC % IRON SAT (test code = 2079) 8 % PROTIME AND [id number] 00:00:00 Test Item Value Reference Range Interpretation Comments PROTHROMBIN TIME (PT) (test code 14.8 SECONDS = 1402) INR (test code = 28220) 1.1 PTT (test code = 1403) 35.8 SECONDS RHEUMATOID FACTOR, [id number] 00:00:00 Test Item Value Reference Range Interpretation Comments RHEUMATOID FACTOR, QUANT (test code <10 IU/ML = 3502) RHEUMATOID FACTOR, [id number] 00:00:00 Test Item Value Reference Range Interpretation Comments RHEUMATOID FACTOR, QUANT (test code <10 IU/ML = 3502) CCP [id number] 00:00:00 Test Item Value Reference Range Interpretation Comments CCP IgG (test code = 84970) <0.5 U/ML CCP [id number] 00:00:00 Test Item Value Reference Range Interpretation Comments CCP IgG (test code = 44625) <0.5 U/ML ASH (SM) [id number] 00:00:00 Test Item Value Reference Range Interpretation Comments ASH (Sm) ANTIBODY (test code = <0.2 AI 68317) DNA DS [id number] 00:00:00 Test Item Value Reference Range Interpretation Comments dsDNA ANTIBODY (test code = 4287) 1.0 IU/ML [id number] 00:00:00 Test Item Value Reference Range Interpretation Comments FERRITIN (test code = 2074) 42 NG/ML [id number] 00:00:00 Test Item Value Reference Range Interpretation Comments FERRITIN (test code = 2074) 42 NG/ML [id number] 00:00:00 Test Item Value Reference Range Interpretation Comments TRANSFERRIN (test code = 4936) 281 MG/DL [id number] 00:00:00 Test Item Value Reference Range Interpretation Comments TRANSFERRIN (test code = 4936) 281 MG/DL IRON BINDING CAPACITY AND IRON AND % [id number] 00:00:00 Test Item Value Reference Range Interpretation Comments IRON, SERUM (test code = 2) 28 UG/DL UNSATURATED IBC (test code = ) 315 UG/DL CALC TOTAL IBC (test code = 2076) 343 UG/DL CALC % IRON SAT (test code = 2078) 8 % IRON BINDING CAPACITY AND IRON AND % [id number] 00:00:00 Test Item Value Reference Range Interpretation Comments IRON, SERUM (test code = 2) 28 UG/DL UNSATURATED IBC (test code = 15778) 315 UG/DL CALC TOTAL IBC (test code = 2076) 343 UG/DL CALC % IRON SAT (test code = 2078) 8 % PROTIME AND [id number] 00:00:00 Test Item Value Reference Range Interpretation Comments PROTHROMBIN TIME (PT) (test code 14.8 SECONDS = 1402) INR (test code = 65782) 1.1 PTT (test code = 1403) 35.8 SECONDS PROTIME AND [id number] 00:00:00 Test Item Value Reference Range Interpretation Comments PROTHROMBIN TIME (PT) (test code 14.8 SECONDS = 1402) INR (test code = 40553) 1.1 PTT (test code = 1403) 35.8 SECONDS RHEUMATOID FACTOR, [id number] 00:00:00 Test Item Value Reference Range Interpretation Comments RHEUMATOID FACTOR, QUANT (test code <10 IU/ML = 3502) RHEUMATOID FACTOR, [id number] 00:00:00 Test Item Value Reference Range Interpretation Comments RHEUMATOID FACTOR, QUANT (test code <10 IU/ML = 3502) RHEUMATOID FACTOR, [id number] 00:00:00 Test Item Value Reference Range Interpretation Comments RHEUMATOID FACTOR, QUANT (test code <10 IU/ML = 3502) CCP [id number] 00:00:00 Test Item Value Reference Range Interpretation Comments CCP IgG (test code = 46029) <0.5 U/ML CCP [id number] 00:00:00 Test Item Value Reference Range Interpretation Comments CCP IgG (test code = 24569) <0.5 U/ML CCP [id number] 00:00:00 Test Item Value Reference Range Interpretation Comments CCP IgG (test code = 30175) <0.5 U/ML ASH (SM) [id number] 00:00:00 Test Item Value Reference Range Interpretation Comments ASH (Sm) ANTIBODY (test code = <0.2 AI 27821) ASH (SM) [id number] 00:00:00 Test Item Value Reference Range Interpretation Comments ASH (Sm) ANTIBODY (test code = <0.2 AI 28992) DNA DS [id number] 00:00:00 Test Item Value Reference Range Interpretation Comments dsDNA ANTIBODY (test code = 4287) 1.0 IU/ML DNA DS [id number] 00:00:00 Test Item Value Reference Range Interpretation Comments dsDNA ANTIBODY (test code = 4287) 1.0 IU/ML CULTURE, [id number] 00:00:00 Test Item Value Reference Range Interpretation Comments CULTURE, URINE (test SPECIMEN NUMBER: code = 26869) [id number] CULTURE, [id number] 00:00:00 Test Item Value Reference Range Interpretation Comments CULTURE, URINE (test SPECIMEN NUMBER: code = 42582) [id number] CULTURE, [id number] 00:00:00 Test Item Value Reference Range Interpretation Comments CULTURE, URINE (test SPECIMEN NUMBER: code = 97386) [id number] CULTURE, [id number] 00:00:00 Test Item Value Reference Range Interpretation Comments CULTURE, URINE (test SPECIMEN NUMBER: code = 56567) [id number] CULTURE, [id number] 00:00:00 Test Item Value Reference Range Interpretation Comments CULTURE, URINE (test SPECIMEN NUMBER: code = 49238) [id number] CULTURE, [id number] 00:00:00 Test Item Value Reference Range Interpretation Comments CULTURE, URINE (test SPECIMEN NUMBER: code = 55036) [id number] CULTURE, [id number] 00:00:00 Test Item Value Reference Range Interpretation Comments CULTURE, URINE (test SPECIMEN NUMBER: code = 79569) [id number] CULTURE, [id number] 00:00:00 Test Item Value Reference Range Interpretation Comments CULTURE, URINE (test SPECIMEN NUMBER: code = 31001) [id number] CULTURE, [id number] 00:00:00 Test Item Value Reference Range Interpretation Comments CULTURE, URINE (test SPECIMEN NUMBER: code = 77159) [id number] CULTURE, [id number] 00:00:00 Test Item Value Reference Range Interpretation Comments CULTURE, URINE (test SPECIMEN NUMBER: code = 80075) [id number] CULTURE, [id number] 00:00:00 Test Item Value Reference Range Interpretation Comments CULTURE, URINE (test SPECIMEN NUMBER: code = 91797) [id number] CULTURE, [id number] 00:00:00 Test Item Value Reference Range Interpretation Comments CULTURE, URINE (test SPECIMEN NUMBER: code = 87211) [id number] JAMEEL TITER AND PATTERN [REFLEX]2021-01-17 00:00:00 Test Item Value Reference Range Interpretation Comments PATTERN (test code = SPECKLED 21567) JAMEEL TITER (test code = 1:640 TITER 3550) PATTERN 2 (test code = NOT DETECTED 55955) JAMEEL TITER 2 (test code = NOT DETECTED TITER 46123) PATTERN 3 (test code = NOT DETECTED 71326) JAMEEL TITER 3 (test code = NOT DETECTED TITER 72899) METHOD (test code = 38296) (NOTE) JAMEEL TITER AND PATTERN [REFLEX]2021-01-17 00:00:00 Test Item Value Reference Range Interpretation Comments PATTERN (test code = SPECKLED 33953) JAMEEL TITER (test code = 1:640 TITER 3550) PATTERN 2 (test code = NOT DETECTED 76862) JAMEEL TITER 2 (test code = NOT DETECTED TITER 86249) PATTERN 3 (test code = NOT DETECTED 21636) JAMEEL TITER 3 (test code = NOT DETECTED TITER 26479) METHOD (test code = 81527) (NOTE) JAMEEL TITER AND PATTERN [REFLEX]2021-01-17 00:00:00 Test Item Value Reference Range Interpretation Comments PATTERN (test code = SPECKLED 28875) JAEMEL TITER (test code = 1:640 TITER 3550) PATTERN 2 (test code = NOT DETECTED 17941) JAMEEL TITER 2 (test code = NOT DETECTED TITER 01506) PATTERN 3 (test code = NOT DETECTED 18767) JAMEEL TITER 3 (test code = NOT DETECTED TITER 36840) METHOD (test code = 64206) (NOTE) JAMEEL TITER AND PATTERN [REFLEX]2021-01-17 00:00:00 Test Item Value Reference Range Interpretation Comments PATTERN (test code = SPECKLED 78365) JAMEEL TITER (test code = 1:640 TITER 3550) PATTERN 2 (test code = NOT DETECTED 36275) JAMEEL TITER 2 (test code = NOT DETECTED TITER 80004) PATTERN 3 (test code = NOT DETECTED 68681) JAMEEL TITER 3 (test code = NOT DETECTED TITER 74521) METHOD (test code = 53492) (NOTE) JAMEEL TITER AND PATTERN [REFLEX]2021-01-17 00:00:00 Test Item Value Reference Range Interpretation Comments PATTERN (test code = SPECKLED 21170) JAMEEL TITER (test code = 1:640 TITER 3550) PATTERN 2 (test code = NOT DETECTED 47429) JAMEEL TITER 2 (test code = NOT DETECTED TITER 33787) PATTERN 3 (test code = NOT DETECTED 75339) JAMEEL TITER 3 (test code = NOT DETECTED TITER 83287) METHOD (test code = 74175) (NOTE) JAMEEL TITER AND PATTERN [REFLEX]2021-01-17 00:00:00 Test Item Value Reference Range Interpretation Comments PATTERN (test code = SPECKLED 23131) JAMEEL TITER (test code = 1:640 TITER 3550) PATTERN 2 (test code = NOT DETECTED 34774) JAMEEL TITER 2 (test code = NOT DETECTED TITER 23727) PATTERN 3 (test code = NOT DETECTED 80952) JAMEEL TITER 3 (test code = NOT DETECTED TITER 88312) METHOD (test code = 97349) (NOTE) JAMEEL TITER AND PATTERN [REFLEX]2021-01-17 00:00:00 Test Item Value Reference Range Interpretation Comments PATTERN (test code = SPECKLED 67654) JAMEEL TITER (test code = 1:640 TITER 3550) PATTERN 2 (test code = NOT DETECTED 01315) JAMEEL TITER 2 (test code = NOT DETECTED TITER 60555) PATTERN 3 (test code = NOT DETECTED 23968) JAMEEL TITER 3 (test code = NOT DETECTED TITER 78362) METHOD (test code = 40834) (NOTE) CBC W/AUTO [id number] 00:00:00 Test Item Value Reference Range Interpretation [...] NUCLEATED RBCS (test code = 0.00 K/UL 38696) CBC W/AUTO [id number] 00:00:00 Test Item Value Reference Range Interpretation [...] NUCLEATED RBCS (test code = 0.00 K/UL 12278) CBC W/AUTO [id number] 00:00:00 Test Item Value Reference Range Interpretation [...] NUCLEATED RBCS (test code = 0.00 K/UL 73775) COMPREHENSIVE METABOLIC [id number] 00:00:00 Test Item Value Reference Range Interpretation Comments GLUCOSE (test code = 2217) 139 MG/DL BUN (test code = 2208) 21 MG/DL CREATININE (test code = 2214) 0.83 MG/DL eGFR AMER. (test code 88 ML/MIN/1.73 = 38188) eGFR NON- AMER. (test 76 ML/MIN/1.73 code = 94711) CALC BUN/CREAT (test code = 25 RATIO [...] code = 2219) 23 U/L COMPREHENSIVE METABOLIC [id number] 00:00:00 Test Item Value Reference Range Interpretation Comments GLUCOSE (test code = 2217) 139 MG/DL BUN (test code = 2208) 21 MG/DL CREATININE (test code = 2214) 0.83 MG/DL eGFR AMER. (test code 88 ML/MIN/1.73 = 69610) eGFR NON- AMER. (test 76 ML/MIN/1.73 code = 18293) CALC BUN/CREAT (test code = 25 RATIO [...] ALT (test code = 2219) 23 U/L [id number] 00:00:00 Test Item Value Reference Range Interpretation Comments NT-proBNP (test code = 13291) 247 PG/ML [id number] 00:00:00 Test Item Value Reference Range Interpretation Comments NT-proBNP (test code = 81309) 247 PG/ML [id number] 00:00:00 Test Item Value Reference Range Interpretation Comments NT-proBNP (test code = 93016) 247 PG/ML JAMEEL (ANTI-NUCLEAR AB) WITH REFLEX [id number] 00:00:00 Test Item Value Reference Range Interpretation Comments ANTI-NUCLEAR ANTIBODIES (test code = POSITIVE 3506) JAMEEL (ANTI-NUCLEAR AB) WITH REFLEX [id number] 00:00:00 Test Item Value Reference Range Interpretation Comments ANTI-NUCLEAR ANTIBODIES (test code = POSITIVE 3506) C-REACTIVE [id number] 00:00:00 Test Item Value Reference Range Interpretation Comments C-REACTIVE PROTEIN (test code = 1.1 MG/DL 3513) C-REACTIVE [id number] 00:00:00 Test Item Value Reference Range Interpretation Comments C-REACTIVE PROTEIN (test code = 1.1 MG/DL 3513) SEDIMENTATION [id number] 00:00:00 Test Item Value Reference Range Interpretation Comments SEDIMENTATION RATE (test code = 88 MM/HOUR 1017) SEDIMENTATION [id number] 00:00:00 Test Item Value Reference Range Interpretation Comments SEDIMENTATION RATE (test code = 88 MM/HOUR 1017) [id number] 00:00:00 Test Item Value Reference Range Interpretation Comments D-DIMER (test code = 1405) 0.77 UG/MLFEU [id number] 00:00:00 Test Item Value Reference Range Interpretation Comments D-DIMER (test code = 1405) 0.77 UG/MLFEU CBC W/AUTO [id number] 00:00:00 Test Item Value Reference Range Interpretation [...] NUCLEATED RBCS (test code = 0.00 K/UL 57806) CBC W/AUTO [id number] 00:00:00 Test Item Value Reference Range Interpretation [...] NUCLEATED RBCS (test code = 0.00 K/UL 95224) CBC W/AUTO [id number] 00:00:00 Test Item Value Reference Range Interpretation [...] NUCLEATED RBCS (test code = 0.00 K/UL 44935) CBC W/AUTO [id number] 00:00:00 Test Item Value Reference Range Interpretation [...] NUCLEATED RBCS (test code = 0.00 K/UL 56725) CBC W/AUTO [id number] 00:00:00 Test Item Value Reference Range Interpretation [...] NUCLEATED RBCS (test code = 0.00 K/UL 73951) COMPREHENSIVE METABOLIC [id number] 00:00:00 Test Item Value Reference Range Interpretation Comments GLUCOSE (test code = 2217) 139 MG/DL BUN (test code = 2208) 21 MG/DL CREATININE (test code = 2214) 0.83 MG/DL eGFR AMER. (test code 88 ML/MIN/1.73 = 59489) eGFR NON- AMER. (test 76 ML/MIN/1.73 code = 06901) CALC BUN/CREAT (test code = 25 RATIO [...] code = 2219) 23 U/L COMPREHENSIVE METABOLIC [id number] 00:00:00 Test Item Value Reference Range Interpretation Comments GLUCOSE (test code = 2217) 139 MG/DL BUN (test code = 2208) 21 MG/DL CREATININE (test code = 2214) 0.83 MG/DL eGFR AMER. (test code 88 ML/MIN/1.73 = 33630) eGFR NON- AMER. (test 76 ML/MIN/1.73 code = 35161) CALC BUN/CREAT (test code = 25 RATIO 2235) SODIUM (test code = 2231) 140 MEQ/L POTASSIUM (test code = 2228) 4.8 MEQ/L CHLORIDE (test code = 2215) 102 MEQ/L CARBON DIOXIDE (test code = 25 MEQ/L 6) CALCIUM (test code = 2209) 9.2 MG/DL [...] ALT (test code = 2219) 23 U/L [id number] 00:00:00 Test Item Value Reference Range Interpretation Comments NT-proBNP (test code = 56742) 247 PG/ML [id number] 00:00:00 Test Item Value Reference Range Interpretation Comments NT-proBNP (test code = 01067) 247 PG/ML [id number] 00:00:00 Test Item Value Reference Range Interpretation Comments NT-proBNP (test code = 99857) 247 PG/ML JAMEEL (ANTI-NUCLEAR AB) WITH REFLEX [id number] 00:00:00 Test Item Value Reference Range Interpretation Comments ANTI-NUCLEAR ANTIBODIES (test code = POSITIVE 3506) JAMEEL (ANTI-NUCLEAR AB) WITH REFLEX [id number] 00:00:00 Test Item Value Reference Range Interpretation Comments ANTI-NUCLEAR ANTIBODIES (test code = POSITIVE 3506) C-REACTIVE [id number] 00:00:00 Test Item Value Reference Range Interpretation Comments C-REACTIVE PROTEIN (test code = 1.1 MG/DL 3513) C-REACTIVE [id number] 00:00:00 Test Item Value Reference Range Interpretation Comments C-REACTIVE PROTEIN (test code = 1.1 MG/DL 3513) COMPREHENSIVE METABOLIC [id number] 00:00:00 Test Item Value Reference Range Interpretation Comments GLUCOSE (test code = 2217) 139 MG/DL BUN (test code = 2208) 21 MG/DL CREATININE (test code = 2214) 0.83 MG/DL eGFR AMER. (test code 88 ML/MIN/1.73 = 21690) eGFR NON- AMER. (test 76 ML/MIN/1.73 code = 36468) CALC BUN/CREAT (test code = 25 RATIO [...] (test code = 2219) 23 U/L SEDIMENTATION [id number] 00:00:00 Test Item Value Reference Range Interpretation Comments SEDIMENTATION RATE (test code = 88 MM/HOUR 1017) SEDIMENTATION [id number] 00:00:00 Test Item Value Reference Range Interpretation Comments SEDIMENTATION RATE (test code = 88 MM/HOUR 1017) [id number] 00:00:00 Test Item Value Reference Range Interpretation Comments D-DIMER (test code = 1405) 0.77 UG/MLFEU [id number] 00:00:00 Test Item Value Reference Range Interpretation Comments D-DIMER (test code = 1405) 0.77 UG/MLFEU [id number] 00:00:00 Test Item Value Reference Range Interpretation Comments NT-proBNP (test code = 64020) 247 PG/ML [id number] 00:00:00 Test Item Value Reference Range Interpretation Comments NT-proBNP (test code = 48607) 247 PG/ML JAMEEL (ANTI-NUCLEAR AB) WITH REFLEX [id number] 00:00:00 Test Item Value Reference Range Interpretation Comments ANTI-NUCLEAR ANTIBODIES (test code = POSITIVE 3506) C-REACTIVE [id number] 00:00:00 Test Item Value Reference Range Interpretation Comments C-REACTIVE PROTEIN (test code = 1.1 MG/DL 3513) SEDIMENTATION [id number] 00:00:00 Test Item Value Reference Range Interpretation Comments SEDIMENTATION RATE (test code = 88 MM/HOUR 1017) [id number] 00:00:00 Test Item Value Reference Range Interpretation Comments D-DIMER (test code = 1405) 0.77 UG/MLFEU CBC W/AUTO [id number] 00:00:00 Test Item Value Reference Range Interpretation [...] NUCLEATED RBCS (test code = 0.00 K/UL 46912) CBC W/AUTO [id number] 00:00:00 Test Item Value Reference Range Interpretation [...] NUCLEATED RBCS (test code = 0.00 K/UL 93217) CBC W/AUTO [id number] 00:00:00 Test Item Value Reference Range Interpretation [...] NUCLEATED RBCS (test code = 0.00 K/UL 12121) COMPREHENSIVE METABOLIC [id number] 00:00:00 Test Item Value Reference Range Interpretation Comments GLUCOSE (test code = 2217) 139 MG/DL BUN (test code = 2208) 21 MG/DL CREATININE (test code = 2214) 0.83 MG/DL eGFR AMER. (test code 88 ML/MIN/1.73 = 32711) eGFR NON- AMER. (test 76 ML/MIN/1.73 code = 18988) CALC BUN/CREAT (test code = 25 RATIO [...] code = 2219) 23 U/L COMPREHENSIVE METABOLIC [id number] 00:00:00 Test Item Value Reference Range Interpretation Comments GLUCOSE (test code = 2217) 139 MG/DL BUN (test code = 2208) 21 MG/DL CREATININE (test code = 2214) 0.83 MG/DL eGFR AMER. (test code 88 ML/MIN/1.73 = 64832) eGFR NON- AMER. (test 76 ML/MIN/1.73 code = 27584) CALC BUN/CREAT (test code = 25 RATIO [...] ALT (test code = 2219) 23 U/L [id number] 00:00:00 Test Item Value Reference Range Interpretation Comments NT-proBNP (test code = 91774) 247 PG/ML [id number] 00:00:00 Test Item Value Reference Range Interpretation Comments NT-proBNP (test code = 44534) 247 PG/ML [id number] 00:00:00 Test Item Value Reference Range Interpretation Comments NT-proBNP (test code = 87217) 247 PG/ML JAMEEL (ANTI-NUCLEAR AB) WITH REFLEX [id number] 00:00:00 Test Item Value Reference Range Interpretation Comments ANTI-NUCLEAR ANTIBODIES (test code = POSITIVE 1044) JAMEEL (ANTI-NUCLEAR AB) WITH REFLEX [id number] 00:00:00 Test Item Value Reference Range Interpretation Comments ANTI-NUCLEAR ANTIBODIES (test code = POSITIVE 3506) C-REACTIVE [id number] 00:00:00 Test Item Value Reference Range Interpretation Comments C-REACTIVE PROTEIN (test code = 1.1 MG/DL 3513) C-REACTIVE [id number] 00:00:00 Test Item Value Reference Range Interpretation Comments C-REACTIVE PROTEIN (test code = 1.1 MG/DL 3513) SEDIMENTATION [id number] 00:00:00 Test Item Value Reference Range Interpretation Comments SEDIMENTATION RATE (test code = 88 MM/HOUR 1017) SEDIMENTATION [id number] 00:00:00 Test Item Value Reference Range Interpretation Comments SEDIMENTATION RATE (test code = 88 MM/HOUR 1017) [id number] 00:00:00 Test Item Value Reference Range Interpretation Comments D-DIMER (test code = 1405) 0.77 UG/MLFEU [id number] 00:00:00 Test Item Value Reference Range Interpretation Comments D-DIMER (test code = 1405) 0.77 UG/MLFEU CBC W/AUTO [id number] 00:00:00 Test Item Value Reference Range Interpretation [...] NUCLEATED RBCS (test code = 0.00 K/UL 24103) CBC W/AUTO [id number] 00:00:00 Test Item Value Reference Range Interpretation [...] NUCLEATED RBCS (test code = 0.00 K/UL 32066) CBC W/AUTO [id number] 00:00:00 Test Item Value Reference Range Interpretation [...] NUCLEATED RBCS (test code = 0.00 K/UL 45470) COMPREHENSIVE METABOLIC [id number] 00:00:00 Test Item Value Reference Range Interpretation Comments GLUCOSE (test code = 2217) 139 MG/DL BUN (test code = 2208) 21 MG/DL CREATININE (test code = 2214) 0.83 MG/DL eGFR AMER. (test code 88 ML/MIN/1.73 = 60747) eGFR NON- AMER. (test 76 ML/MIN/1.73 code = 51272) CALC BUN/CREAT (test code = 25 RATIO [...] code = 2219) 23 U/L COMPREHENSIVE METABOLIC [id number] 00:00:00 Test Item Value Reference Range Interpretation Comments GLUCOSE (test code = 2217) 139 MG/DL BUN (test code = 2208) 21 MG/DL CREATININE (test code = 2214) 0.83 MG/DL eGFR AMER. (test code 88 ML/MIN/1.73 = 05847) eGFR NON- AMER. (test 76 ML/MIN/1.73 code = 49454) CALC BUN/CREAT (test code = 25 RATIO [...] ALT (test code = 2219) 23 U/L [id number] 00:00:00 Test Item Value Reference Range Interpretation Comments NT-proBNP (test code = 40042) 247 PG/ML [id number] 00:00:00 Test Item Value Reference Range Interpretation Comments NT-proBNP (test code = 31505) 247 PG/ML [id number] 00:00:00 Test Item Value Reference Range Interpretation Comments NT-proBNP (test code = 80121) 247 PG/ML JAMEEL (ANTI-NUCLEAR AB) WITH REFLEX [id number] 00:00:00 Test Item Value Reference Range Interpretation Comments ANTI-NUCLEAR ANTIBODIES (test code = POSITIVE 8098) JAMEEL (ANTI-NUCLEAR AB) WITH REFLEX [id number] 00:00:00 Test Item Value Reference Range Interpretation Comments ANTI-NUCLEAR ANTIBODIES (test code = POSITIVE 3506) C-REACTIVE [id number] 00:00:00 Test Item Value Reference Range Interpretation Comments C-REACTIVE PROTEIN (test code = 1.1 MG/DL 3513) C-REACTIVE [id number] 00:00:00 Test Item Value Reference Range Interpretation Comments C-REACTIVE PROTEIN (test code = 1.1 MG/DL 3513) SEDIMENTATION [id number] 00:00:00 Test Item Value Reference Range Interpretation Comments SEDIMENTATION RATE (test code = 88 MM/HOUR 1017) SEDIMENTATION [id number] 00:00:00 Test Item Value Reference Range Interpretation Comments SEDIMENTATION RATE (test code = 88 MM/HOUR 1017) [id number] 00:00:00 Test Item Value Reference Range Interpretation Comments D-DIMER (test code = 1405) 0.77 UG/MLFEU [id number] 00:00:00 Test Item Value Reference Range Interpretation Comments D-DIMER (test code = 1405) 0.77 UG/MLFEU CBC W/AUTO [id number] 00:00:00 Test Item Value Reference Range Interpretation [...] NUCLEATED RBCS (test code = 0.00 K/UL 42077) CBC W/AUTO [id number] 00:00:00 Test Item Value Reference Range Interpretation [...] NUCLEATED RBCS (test code = 0.00 K/UL 83248) COMPREHENSIVE METABOLIC [id number] 00:00:00 Test Item Value Reference Range Interpretation Comments GLUCOSE (test code = 2217) 139 MG/DL BUN (test code = 2208) 21 MG/DL CREATININE (test code = 2214) 0.83 MG/DL eGFR AMER. (test code 88 ML/MIN/1.73 = 42601) eGFR NON- AMER. (test 76 ML/MIN/1.73 code = 69020) CALC BUN/CREAT (test code = 25 RATIO [...] ALT (test code = 2219) 23 U/L [id number] 00:00:00 Test Item Value Reference Range Interpretation Comments NT-proBNP (test code = 48812) 247 PG/ML [id number] 00:00:00 Test Item Value Reference Range Interpretation Comments NT-proBNP (test code = 27756) 247 PG/ML JAMEEL (ANTI-NUCLEAR AB) WITH REFLEX [id number] 00:00:00 Test Item Value Reference Range Interpretation Comments ANTI-NUCLEAR ANTIBODIES (test code = POSITIVE 3506) C-REACTIVE [id number] 00:00:00 Test Item Value Reference Range Interpretation Comments C-REACTIVE PROTEIN (test code = 1.1 MG/DL 3513) SEDIMENTATION [id number] 00:00:00 Test Item Value Reference Range Interpretation Comments SEDIMENTATION RATE (test code = 88 MM/HOUR 1017) [id number] 00:00:00 Test Item Value Reference Range Interpretation Comments D-DIMER (test code = 1405) 0.77 UG/MLFEU CBC W/AUTO [id number] 00:00:00 Test Item Value Reference Range Interpretation [...] NUCLEATED RBCS (test code = 0.00 K/UL 52037) CBC W/AUTO [id number] 00:00:00 Test Item Value Reference Range Interpretation [...] NUCLEATED RBCS (test code = 0.00 K/UL 39233) CBC W/AUTO [id number] 00:00:00 Test Item Value Reference Range Interpretation [...] NUCLEATED RBCS (test code = 0.00 K/UL 62229) COMPREHENSIVE METABOLIC [id number] 00:00:00 Test Item Value Reference Range Interpretation Comments GLUCOSE (test code = 2217) 139 MG/DL BUN (test code = 2208) 21 MG/DL CREATININE (test code = 2214) 0.83 MG/DL eGFR AMER. (test code 88 ML/MIN/1.73 = 71313) eGFR NON- AMER. (test 76 ML/MIN/1.73 code = 15109) CALC BUN/CREAT (test code = 25 RATIO [...] code = 2219) 23 U/L COMPREHENSIVE METABOLIC [id number] 00:00:00 Test Item Value Reference Range Interpretation Comments GLUCOSE (test code = 2217) 139 MG/DL BUN (test code = 2208) 21 MG/DL CREATININE (test code = 2214) 0.83 MG/DL eGFR AMER. (test code 88 ML/MIN/1.73 = 19215) eGFR NON- AMER. (test 76 ML/MIN/1.73 code = 03300) CALC BUN/CREAT (test code = 25 RATIO [...] ALT (test code = 2219) 23 U/L [id number] 00:00:00 Test Item Value Reference Range Interpretation Comments NT-proBNP (test code = 42127) 247 PG/ML [id number] 00:00:00 Test Item Value Reference Range Interpretation Comments NT-proBNP (test code = 02063) 247 PG/ML [id number] 00:00:00 Test Item Value Reference Range Interpretation Comments NT-proBNP (test code = 29227) 247 PG/ML JAMEEL (ANTI-NUCLEAR AB) WITH REFLEX [id number] 00:00:00 Test Item Value Reference Range Interpretation Comments ANTI-NUCLEAR ANTIBODIES (test code = POSITIVE 3506) JAMEEL (ANTI-NUCLEAR AB) WITH REFLEX [id number] 00:00:00 Test Item Value Reference Range Interpretation Comments ANTI-NUCLEAR ANTIBODIES (test code = POSITIVE 3506) C-REACTIVE [id number] 00:00:00 Test Item Value Reference Range Interpretation Comments C-REACTIVE PROTEIN (test code = 1.1 MG/DL 3513) C-REACTIVE [id number] 00:00:00 Test Item Value Reference Range Interpretation Comments C-REACTIVE PROTEIN (test code = 1.1 MG/DL 3513) SEDIMENTATION [id number] 00:00:00 Test Item Value Reference Range Interpretation Comments SEDIMENTATION RATE (test code = 88 MM/HOUR 1017) SEDIMENTATION [id number] 00:00:00 Test Item Value Reference Range Interpretation Comments SEDIMENTATION RATE (test code = 88 MM/HOUR 1017) [id number] 00:00:00 Test Item Value Reference Range Interpretation Comments D-DIMER (test code = 1405) 0.77 UG/MLFEU [id number] 00:00:00 Test Item Value Reference Range Interpretation Comments D-DIMER (test code = 1405) 0.77 UG/MLFEU HEMOGLOBIN [id number] 00:00:00 Test Item Value Reference Range Interpretation Comments HEMOGLOBIN A1c (test code = 87078) 7.5 % HEMOGLOBIN [id number] 00:00:00 Test Item Value Reference Range Interpretation Comments HEMOGLOBIN A1c (test code = 39884) 7.5 % HEMOGLOBIN [id number] 00:00:00 Test Item Value Reference Range Interpretation Comments HEMOGLOBIN A1c (test code = 67358) 7.5 % HEMOGLOBIN [id number] 00:00:00 Test Item Value Reference Range Interpretation Comments HEMOGLOBIN A1c (test code = 79902) 7.5 % HEMOGLOBIN [id number] 00:00:00 Test Item Value Reference Range Interpretation Comments HEMOGLOBIN A1c (test code = 94258) 7.5 % HEMOGLOBIN [id number] 00:00:00 Test Item Value Reference Range Interpretation Comments HEMOGLOBIN A1c (test code = 10036) 7.5 % HEMOGLOBIN [id number] 00:00:00 Test Item Value Reference Range Interpretation Comments HEMOGLOBIN A1c (test code = 80769) 7.5 % HEMOGLOBIN [id number] 00:00:00 Test Item Value Reference Range Interpretation Comments HEMOGLOBIN A1c (test code = 09492) 7.5 % HEMOGLOBIN [id number] 00:00:00 Test Item Value Reference Range Interpretation Comments HEMOGLOBIN A1c (test code = 39287) 7.5 % HEMOGLOBIN [id number] 00:00:00 Test Item Value Reference Range Interpretation Comments HEMOGLOBIN A1c (test code = 80497) 7.5 % HEMOGLOBIN [id number] 00:00:00 Test Item Value Reference Range Interpretation Comments HEMOGLOBIN A1c (test code = 76900) 7.5 % HEMOGLOBIN [id number] 00:00:00 Test Item Value Reference Range Interpretation Comments HEMOGLOBIN A1c (test code = 35145) 7.5 % HEMOGLOBIN [id number] 00:00:00 Test Item Value Reference Range Interpretation Comments HEMOGLOBIN A1c (test code = 88018) 7.5 % HEMOGLOBIN [id number] 00:00:00 Test Item Value Reference Range Interpretation Comments HEMOGLOBIN A1c (test code = 64622) 7.5 % HEMOGLOBIN [id number] 00:00:00 Test Item Value Reference Range Interpretation Comments HEMOGLOBIN A1c (test code = 62836) 7.5 % HEMOGLOBIN [id number] 00:00:00 Test Item Value Reference Range Interpretation Comments HEMOGLOBIN A1c (test code = 71924) 7.5 % HEMOGLOBIN [id number] 00:00:00 Test Item Value Reference Range Interpretation Comments HEMOGLOBIN A1c (test code = 66025) 7.5 % HEMOGLOBIN [id number] 00:00:00 Test Item Value Reference Range Interpretation Comments HEMOGLOBIN A1c (test code = 55947) 7.5 % HEMOGLOBIN [id number] 00:00:00 Test Item Value Reference Range Interpretation Comments HEMOGLOBIN A1c (test code = 20125) 7.5 % CULTURE, [id number] 00:00:00 Test Item Value Reference Range Interpretation Comments CULTURE, URINE (test SPECIMEN NUMBER: code = 96486) [id number] CULTURE, [id number] 00:00:00 Test Item Value Reference Range Interpretation Comments CULTURE, URINE (test SPECIMEN NUMBER: code = 81748) [id number] CULTURE, [id number] 00:00:00 Test Item Value Reference Range Interpretation Comments CULTURE, URINE (test SPECIMEN NUMBER: code = 73345) [id number] CULTURE, [id number] 00:00:00 Test Item Value Reference Range Interpretation Comments CULTURE, URINE (test SPECIMEN NUMBER: code = 95709) [id number] CULTURE, [id number] 00:00:00 Test Item Value Reference Range Interpretation Comments CULTURE, URINE (test SPECIMEN NUMBER: code = 91768) [id number] CULTURE, [id number] 00:00:00 Test Item Value Reference Range Interpretation Comments CULTURE, URINE (test SPECIMEN NUMBER: code = 72203) [id number] CULTURE, [id number] 00:00:00 Test Item Value Reference Range Interpretation Comments CULTURE, URINE (test SPECIMEN NUMBER: code = 86288) [id number] CULTURE, [id number] 00:00:00 Test Item Value Reference Range Interpretation Comments CULTURE, URINE (test SPECIMEN NUMBER: code = 28494) [id number] CULTURE, [id number] 00:00:00 Test Item Value Reference Range Interpretation Comments CULTURE, URINE (test SPECIMEN NUMBER: code = 51458) [id number] CULTURE, [id number] 00:00:00 Test Item Value Reference Range Interpretation Comments CULTURE, URINE (test SPECIMEN NUMBER: code = 08607) [id number] CULTURE, [id number] 00:00:00 Test Item Value Reference Range Interpretation Comments CULTURE, URINE (test SPECIMEN NUMBER: code = 11933) [id number] CULTURE, [id number] 00:00:00 Test Item Value Reference Range Interpretation Comments CULTURE, URINE (test SPECIMEN NUMBER: code = 55428) [id number] HEMOGLOBIN [id number] 00:00:00 Test Item Value Reference Range Interpretation Comments HEMOGLOBIN A1c (test code = 29893) 8.6 % HEMOGLOBIN [id number] 00:00:00 Test Item Value Reference Range Interpretation Comments HEMOGLOBIN A1c (test code = 89649) 8.6 % HEMOGLOBIN [id number] 00:00:00 Test Item Value Reference Range Interpretation Comments HEMOGLOBIN A1c (test code = 16468) 8.6 % LIPID [id number] 00:00:00 Test Item Value Reference Range Interpretation Comments CHOLESTEROL (test code = 2210) 104 MG/DL TRIGLYCERIDES (test code = 2232) 164 MG/DL HDL CHOLESTEROL (test code = 2220) 39 MG/DL CALC LDL CHOL (test code = 2237) 41 MG/DL RISK RATIO LDL/HDL (test code = 1.05 RATIO 2238) LIPID [id number] 00:00:00 Test Item Value Reference Range Interpretation Comments CHOLESTEROL (test code = 2210) 104 MG/DL TRIGLYCERIDES (test code = 2232) 164 MG/DL HDL CHOLESTEROL (test code = 2220) 39 MG/DL CALC LDL CHOL (test code = 2237) 41 MG/DL RISK RATIO LDL/HDL (test code = 1.05 RATIO 2238) COMPREHENSIVE METABOLIC [id number] 00:00:00 Test Item Value Reference Range Interpretation Comments GLUCOSE (test code = 2217) 330 MG/DL BUN (test code = 2208) 11 MG/DL CREATININE (test code = 2214) 0.84 MG/DL eGFR AMER. (test code 87 ML/MIN/1.73 = 72491) eGFR NON- AMER. (test 75 ML/MIN/1.73 code = 09753) CALC BUN/CREAT (test code = 13 RATIO [...] code = 2219) 29 U/L COMPREHENSIVE METABOLIC [id number] 00:00:00 Test Item Value Reference Range Interpretation Comments GLUCOSE (test code = 2217) 330 MG/DL BUN (test code = 2208) 11 MG/DL CREATININE (test code = 2214) 0.84 MG/DL eGFR AMER. (test code 87 ML/MIN/1.73 = 41040) eGFR NON- AMER. (test 75 ML/MIN/1.73 code = 86036) CALC BUN/CREAT (test code = 13 RATIO 2235) SODIUM (test code = 2231) 136 MEQ/L POTASSIUM (test code = 2228) 4.5 MEQ/L CHLORIDE (test code = 2215) 97 MEQ/L CARBON DIOXIDE (test code = 27 MEQ/L 6) CALCIUM (test code = 2209) 9.1 MG/DL [...] = 2219) 29 U/L MICROALBUMIN/CREATININE, RANDOM AND [id number] 00:00:00 Test Item Value Reference Range Interpretation Comments CREATININE, URINE, CONC. (test 131.3 MG/DL code = 2072) ALBUMIN, URINE, RANDOM (test code 0.4 MG/DL = 43082) CALC ALBUMIN/CREAT, RND (test 3 MG/G code = 03697) MICROALBUMIN/CREATININE, RANDOM AND [id number] 00:00:00 Test Item Value Reference Range Interpretation Comments CREATININE, URINE, CONC. (test 131.3 MG/DL code = 2072) ALBUMIN, URINE, RANDOM (test code 0.4 MG/DL = 81283) CALC ALBUMIN/CREAT, RND (test 3 MG/G code = 55247) HEMOGLOBIN [id number] 00:00:00 Test Item Value Reference Range Interpretation Comments HEMOGLOBIN A1c (test code = 42920) 8.6 % HEMOGLOBIN [id number] 00:00:00 Test Item Value Reference Range Interpretation Comments HEMOGLOBIN A1c (test code = 36312) 8.6 % HEMOGLOBIN [id number] 00:00:00 Test Item Value Reference Range Interpretation Comments HEMOGLOBIN A1c (test code = 88034) 8.6 % HEMOGLOBIN [id number] 00:00:00 Test Item Value Reference Range Interpretation Comments HEMOGLOBIN A1c (test code = 76910) 8.6 % HEMOGLOBIN [id number] 00:00:00 Test Item Value Reference Range Interpretation Comments HEMOGLOBIN A1c (test code = 93098) 8.6 % LIPID [id number] 00:00:00 Test Item Value Reference Range Interpretation Comments CHOLESTEROL (test code = 2210) 104 MG/DL TRIGLYCERIDES (test code = 2232) 164 MG/DL HDL CHOLESTEROL (test code = 2220) 39 MG/DL CALC LDL CHOL (test code = 2237) 41 MG/DL RISK RATIO LDL/HDL (test code = 1.05 RATIO 2238) LIPID [id number] 00:00:00 Test Item Value Reference Range Interpretation Comments CHOLESTEROL (test code = 2210) 104 MG/DL TRIGLYCERIDES (test code = 2232) 164 MG/DL HDL CHOLESTEROL (test code = 2220) 39 MG/DL CALC LDL CHOL (test code = 2237) 41 MG/DL RISK RATIO LDL/HDL (test code = 1.05 RATIO 2238) COMPREHENSIVE METABOLIC [id number] 00:00:00 Test Item Value Reference Range Interpretation Comments GLUCOSE (test code = 2217) 330 MG/DL BUN (test code = 2208) 11 MG/DL CREATININE (test code = 2214) 0.84 MG/DL eGFR AMER. (test code 87 ML/MIN/1.73 = 70742) eGFR NON- AMER. (test 75 ML/MIN/1.73 code = 20708) CALC BUN/CREAT (test code = 13 RATIO [...] code = 2219) 29 U/L COMPREHENSIVE METABOLIC [id number] 00:00:00 Test Item Value Reference Range Interpretation Comments GLUCOSE (test code = 2217) 330 MG/DL BUN (test code = 2208) 11 MG/DL CREATININE (test code = 2214) 0.84 MG/DL eGFR AMER. (test code 87 ML/MIN/1.73 = 84677) eGFR NON- AMER. (test 75 ML/MIN/1.73 code = 22914) CALC BUN/CREAT (test code = 13 RATIO [...] = 2219) 29 U/L MICROALBUMIN/CREATININE, RANDOM AND [id number] 00:00:00 Test Item Value Reference Range Interpretation Comments CREATININE, URINE, CONC. (test 131.3 MG/DL code = 2072) ALBUMIN, URINE, RANDOM (test code 0.4 MG/DL = 32796) CALC ALBUMIN/CREAT, RND (test 3 MG/G code = 42110) MICROALBUMIN/CREATININE, RANDOM AND [id number] 00:00:00 Test Item Value Reference Range Interpretation Comments CREATININE, URINE, CONC. (test 131.3 MG/DL code = 2072) ALBUMIN, URINE, RANDOM (test code 0.4 MG/DL = 60627) CALC ALBUMIN/CREAT, RND (test 3 MG/G code = 98787) LIPID [id number] 00:00:00 Test Item Value Reference Range Interpretation Comments CHOLESTEROL (test code = 2210) 104 MG/DL TRIGLYCERIDES (test code = 2232) 164 MG/DL HDL CHOLESTEROL (test code = 2220) 39 MG/DL CALC LDL CHOL (test code = 2237) 41 MG/DL RISK RATIO LDL/HDL (test code = 1.05 RATIO 2238) COMPREHENSIVE METABOLIC [id number] 00:00:00 Test Item Value Reference Range Interpretation Comments GLUCOSE (test code = 2217) 330 MG/DL BUN (test code = 2208) 11 MG/DL CREATININE (test code = 2214) 0.84 MG/DL eGFR AMER. (test code 87 ML/MIN/1.73 = 66366) eGFR NON- AMER. (test 75 ML/MIN/1.73 code = 40916) CALC BUN/CREAT (test code = 13 RATIO [...] = 2219) 29 U/L MICROALBUMIN/CREATININE, RANDOM AND [id number] 00:00:00 Test Item Value Reference Range Interpretation Comments CREATININE, URINE, CONC. (test 131.3 MG/DL code = 2072) ALBUMIN, URINE, RANDOM (test code 0.4 MG/DL = 75902) CALC ALBUMIN/CREAT, RND (test 3 MG/G code = 50364) HEMOGLOBIN [id number] 00:00:00 Test Item Value Reference Range Interpretation Comments HEMOGLOBIN A1c (test code = 60586) 8.6 % HEMOGLOBIN [id number] 00:00:00 Test Item Value Reference Range Interpretation Comments HEMOGLOBIN A1c (test code = 43781) 8.6 % HEMOGLOBIN [id number] 00:00:00 Test Item Value Reference Range Interpretation Comments HEMOGLOBIN A1c (test code = 53907) 8.6 % LIPID [id number] 00:00:00 Test Item Value Reference Range Interpretation Comments CHOLESTEROL (test code = 2210) 104 MG/DL TRIGLYCERIDES (test code = 2232) 164 MG/DL HDL CHOLESTEROL (test code = 2220) 39 MG/DL CALC LDL CHOL (test code = 2237) 41 MG/DL RISK RATIO LDL/HDL (test code = 1.05 RATIO 2238) LIPID [id number] 00:00:00 Test Item Value Reference Range Interpretation Comments CHOLESTEROL (test code = 2210) 104 MG/DL TRIGLYCERIDES (test code = 2232) 164 MG/DL HDL CHOLESTEROL (test code = 2220) 39 MG/DL CALC LDL CHOL (test code = 2237) 41 MG/DL RISK RATIO LDL/HDL (test code = 1.05 RATIO 2238) COMPREHENSIVE METABOLIC [id number] 00:00:00 Test Item Value Reference Range Interpretation Comments GLUCOSE (test code = 2217) 330 MG/DL BUN (test code = 2208) 11 MG/DL CREATININE (test code = 2214) 0.84 MG/DL eGFR AMER. (test code 87 ML/MIN/1.73 = 36393) eGFR NON- AMER. (test 75 ML/MIN/1.73 code = 19342) CALC BUN/CREAT (test code = 13 RATIO 2235) SODIUM (test code = 2231) 136 MEQ/L POTASSIUM (test code = 2228) 4.5 MEQ/L CHLORIDE (test code = 2215) 97 MEQ/L CARBON DIOXIDE (test code = 27 MEQ/L 2206) CALCIUM (test code = 2209) 9.1 MG/DL PROTEIN, TOTAL (test code = 7.7 G/DL 222) ALBUMIN (test code = 2201) 3.8 G/DL CALC GLOBULIN (test code = 3.9 G/DL 2240) CALC A/G RATIO (test code = 1.0 RATIO 2234) BILIRUBIN, TOTAL (test code = 0.4 MG/DL 2206) ALKALINE PHOSPHATASE (test 106 U/L code = 2204) AST (test code = 2218) 44 U/L ALT (test code = 2219) 29 U/L COMPREHENSIVE METABOLIC [id number] 00:00:00 Test Item Value Reference Range Interpretation Comments GLUCOSE (test code = 2217) 330 MG/DL BUN (test code = 2208) 11 MG/DL CREATININE (test code = 2214) 0.84 MG/DL eGFR AMER. (test code 87 ML/MIN/1.73 = 37534) eGFR NON- AMER. (test 75 ML/MIN/1.73 code = 48941) CALC BUN/CREAT (test code = 13 RATIO [...] = 2219) 29 U/L MICROALBUMIN/CREATININE, RANDOM AND [id number] 00:00:00 Test Item Value Reference Range Interpretation Comments CREATININE, URINE, CONC. (test 131.3 MG/DL code = 2072) ALBUMIN, URINE, RANDOM (test code 0.4 MG/DL = 93968) CALC ALBUMIN/CREAT, RND (test 3 MG/G code = 41408) MICROALBUMIN/CREATININE, RANDOM AND [id number] 00:00:00 Test Item Value Reference Range Interpretation Comments CREATININE, URINE, CONC. (test 131.3 MG/DL code = 2072) ALBUMIN, URINE, RANDOM (test code 0.4 MG/DL = 94571) CALC ALBUMIN/CREAT, RND (test 3 MG/G code = 02002) HEMOGLOBIN [id number] 00:00:00 Test Item Value Reference Range Interpretation Comments HEMOGLOBIN A1c (test code = 13583) 8.6 % HEMOGLOBIN [id number] 00:00:00 Test Item Value Reference Range Interpretation Comments HEMOGLOBIN A1c (test code = 35388) 8.6 % HEMOGLOBIN [id number] 00:00:00 Test Item Value Reference Range Interpretation Comments HEMOGLOBIN A1c (test code = 21243) 8.6 % LIPID [id number] 00:00:00 Test Item Value Reference Range Interpretation Comments CHOLESTEROL (test code = 2210) 104 MG/DL TRIGLYCERIDES (test code = 2232) 164 MG/DL HDL CHOLESTEROL (test code = 2220) 39 MG/DL CALC LDL CHOL (test code = 2237) 41 MG/DL RISK RATIO LDL/HDL (test code = 1.05 RATIO 2238) LIPID [id number] 00:00:00 Test Item Value Reference Range Interpretation Comments CHOLESTEROL (test code = 2210) 104 MG/DL TRIGLYCERIDES (test code = 2232) 164 MG/DL HDL CHOLESTEROL (test code = 2220) 39 MG/DL CALC LDL CHOL (test code = 2237) 41 MG/DL RISK RATIO LDL/HDL (test code = 1.05 RATIO 2238) COMPREHENSIVE METABOLIC [id number] 00:00:00 Test Item Value Reference Range Interpretation Comments GLUCOSE (test code = 2217) 330 MG/DL BUN (test code = 2208) 11 MG/DL CREATININE (test code = 2214) 0.84 MG/DL eGFR AMER. (test code 87 ML/MIN/1.73 = 90609) eGFR NON- AMER. (test 75 ML/MIN/1.73 code = 22934) CALC BUN/CREAT (test code = 13 RATIO [...] code = 2219) 29 U/L COMPREHENSIVE METABOLIC [id number] 00:00:00 Test Item Value Reference Range Interpretation Comments GLUCOSE (test code = 2217) 330 MG/DL BUN (test code = 2208) 11 MG/DL CREATININE (test code = 2214) 0.84 MG/DL eGFR AMER. (test code 87 ML/MIN/1.73 = 86792) eGFR NON- AMER. (test 75 ML/MIN/1.73 code = 55446) CALC BUN/CREAT (test code = 13 RATIO [...] = 2219) 29 U/L MICROALBUMIN/CREATININE, RANDOM AND [id number] 00:00:00 Test Item Value Reference Range Interpretation Comments CREATININE, URINE, CONC. (test 131.3 MG/DL code = 2072) ALBUMIN, URINE, RANDOM (test code 0.4 MG/DL = 95240) CALC ALBUMIN/CREAT, RND (test 3 MG/G code = 48949) MICROALBUMIN/CREATININE, RANDOM AND [id number] 00:00:00 Test Item Value Reference Range Interpretation Comments CREATININE, URINE, CONC. (test 131.3 MG/DL code = 2072) ALBUMIN, URINE, RANDOM (test code 0.4 MG/DL = 43608) CALC ALBUMIN/CREAT, RND (test 3 MG/G code = 67525) HEMOGLOBIN [id number] 00:00:00 Test Item Value Reference Range Interpretation Comments HEMOGLOBIN A1c (test code = 49342) 8.6 % HEMOGLOBIN [id number] 00:00:00 Test Item Value Reference Range Interpretation Comments HEMOGLOBIN A1c (test code = 20338) 8.6 % LIPID [id number] 00:00:00 Test Item Value Reference Range Interpretation Comments CHOLESTEROL (test code = 2210) 104 MG/DL TRIGLYCERIDES (test code = 2232) 164 MG/DL HDL CHOLESTEROL (test code = 2220) 39 MG/DL CALC LDL CHOL (test code = 2237) 41 MG/DL RISK RATIO LDL/HDL (test code = 1.05 RATIO 2238) COMPREHENSIVE METABOLIC [id number] 00:00:00 Test Item Value Reference Range Interpretation Comments GLUCOSE (test code = 2217) 330 MG/DL BUN (test code = 2208) 11 MG/DL CREATININE (test code = 2214) 0.84 MG/DL eGFR AMER. (test code 87 ML/MIN/1.73 = 04878) eGFR NON- AMER. (test 75 ML/MIN/1.73 code = 32556) CALC BUN/CREAT (test code = 13 RATIO [...] = 2219) 29 U/L MICROALBUMIN/CREATININE, RANDOM AND [id number] 00:00:00 Test Item Value Reference Range Interpretation Comments CREATININE, URINE, CONC. (test 131.3 MG/DL code = 207) ALBUMIN, URINE, RANDOM (test code 0.4 MG/DL = 99277) CALC ALBUMIN/CREAT, RND (test 3 MG/G code = 32536) HEMOGLOBIN [id number] 00:00:00 Test Item Value Reference Range Interpretation Comments HEMOGLOBIN A1c (test code = 51435) 8.6 % HEMOGLOBIN [id number] 00:00:00 Test Item Value Reference Range Interpretation Comments HEMOGLOBIN A1c (test code = 66648) 8.6 % HEMOGLOBIN [id number] 00:00:00 Test Item Value Reference Range Interpretation Comments HEMOGLOBIN A1c (test code = 78817) 8.6 % LIPID [id number] 00:00:00 Test Item Value Reference Range Interpretation Comments CHOLESTEROL (test code = 2210) 104 MG/DL TRIGLYCERIDES (test code = 2232) 164 MG/DL HDL CHOLESTEROL (test code = 2220) 39 MG/DL CALC LDL CHOL (test code = 2237) 41 MG/DL RISK RATIO LDL/HDL (test code = 1.05 RATIO 2238) LIPID [id number] 00:00:00 Test Item Value Reference Range Interpretation Comments CHOLESTEROL (test code = 2210) 104 MG/DL TRIGLYCERIDES (test code = 2232) 164 MG/DL HDL CHOLESTEROL (test code = 2220) 39 MG/DL CALC LDL CHOL (test code = 2237) 41 MG/DL RISK RATIO LDL/HDL (test code = 1.05 RATIO 2238) COMPREHENSIVE METABOLIC [id number] 00:00:00 Test Item Value Reference Range Interpretation Comments GLUCOSE (test code = 2217) 330 MG/DL BUN (test code = 2208) 11 MG/DL CREATININE (test code = 2214) 0.84 MG/DL eGFR AMER. (test code 87 ML/MIN/1.73 = 31790) eGFR NON- AMER. (test 75 ML/MIN/1.73 code = 08237) CALC BUN/CREAT (test code = 13 RATIO [...] code = 2219) 29 U/L COMPREHENSIVE METABOLIC [id number] 00:00:00 Test Item Value Reference Range Interpretation Comments GLUCOSE (test code = 2217) 330 MG/DL BUN (test code = 2208) 11 MG/DL CREATININE (test code = 2214) 0.84 MG/DL eGFR AMER. (test code 87 ML/MIN/1.73 = 13490) eGFR NON- AMER. (test 75 ML/MIN/1.73 code = 68051) CALC BUN/CREAT (test code = 13 RATIO [...] = 2219) 29 U/L MICROALBUMIN/CREATININE, RANDOM AND [id number] 00:00:00 Test Item Value Reference Range Interpretation Comments CREATININE, URINE, CONC. (test 131.3 MG/DL code = 2072) ALBUMIN, URINE, RANDOM (test code 0.4 MG/DL = 48703) CALC ALBUMIN/CREAT, RND (test 3 MG/G code = 78178) MICROALBUMIN/CREATININE, RANDOM AND [id number] 00:00:00 Test Item Value Reference Range Interpretation Comments CREATININE, URINE, CONC. (test 131.3 MG/DL code = 2072) ALBUMIN, URINE, RANDOM (test code 0.4 MG/DL = 86792) CALC ALBUMIN/CREAT, RND (test 3 MG/G code = 25715)
[2022-04-12 19:31] LABS: Absolute Lymphocytes (CBC) 0.9 K/uL (0.7-4.9); Hematocrit 30.4 % (36.0-45.0); Lymphocytes % 27.2 % (15.3-44.8); MCV 85.1 fL (80-100); MPV 6.9 fL (7.6-11.3); RBC Red Blood Cell Count 3.58 M/uL (3.86-4.86)
[2022-04-12 19:50] LABS: Albumin 3.6 g/dL (3.4-5.0); Bilirubin Total 0.3 mg/dL (0.2-1.0); Potassium 4.6 mmol/L (3.5-5.1); Protein, Total 8.2 g/dL (6.4-8.2)
--- NOTE | 2022-04-12 19:59 | ER ---
Nurse's Notes [facility] Name: Sita Delgado Age: 62 yrs Sex: Female : 1960 Arrival Date: 04/12/2022 Time: 17:35 Bed 5 Private MD: Diagnosis: Diarrhea, unspecified Presentation: 04/12 18:22 Chief complaint: Patient states: ABD pain x 2 months, states diarrhea in the mornings vg1 upon wakening. Denies vomiting, states nausea. Coronavirus screen: Vaccine status: Patient reports receiving the 2nd dose of the covid vaccine. Client denies travel out of the [place] in the last 14 days. Ebola Screen: Patient negative for fever greater than or equal to 101.5 degrees Fahrenheit, and additional compatible Ebola Virus Disease symptoms. Initial Sepsis Screen: Does the patient meet any 2 criteria? No. Patient's initial sepsis screen is negative. Does the patient have a suspected source of infection? No. Patient's initial sepsis screen is negative. Risk Assessment: Do you want to hurt yourself or someone else? Patient reports no desire to harm self or others. Onset of symptoms was February 2022. 18:22 Method Of Arrival: Ambulatory vg1 18:22 Acuity: KATARINA 3 vg1 Triage Assessment: 18:25 General: Appears in no apparent distress. uncomfortable, Behavior is calm, cooperative. vg1 Pain: Complains of pain in abdomen Pain currently is 8 out of 10 on a pain scale. Quality of pain is described as crampy, pressure, Pain began x 2 months Noted to be grimacing, guarding. GI: Abdomen is round non-distended, obese, Reports diarrhea, nausea. Historical: - Allergies: 18:25 Darvocet-N 100; vg1 18:25 Ketorolac; vg1 18:25 Nubain; vg1 18:25 PENICILLINS; vg1 - PMHx: 18:25 chronic back pain; cirrhosis of liver; diabetes mellitus; Hypercholesterolemia; vg1 Hypertensive disorder; Thyroid problem; - PSHx: 18:25 Appendectomy; vic knee reconstructive sx; carpal tunnel repair; Cholecystectomy; vg1 hysterectomy; - Immunization history:: Client reports receiving the 2nd dose of the Covid vaccine. - Social history:: Smoking status: Patient denies any tobacco usage or history of. Screenin:28 Abuse screen: Denies threats or abuse. Denies injuries from another. Nutritional ha1 screening: No deficits noted. Tuberculosis screening: No symptoms or risk factors identified. Assessment: 19:20 General: Appears comfortable, Behavior is calm, cooperative. Pain: Complains of pain in ha1 abdomen. Neuro: Level of Consciousness is awake, alert, obeys commands, Oriented to person, place, time, situation. Cardiovascular: Capillary refill < 3 seconds Patient's skin is warm and dry. Respiratory: Airway is patent Trachea midline Respiratory effort is even, unlabored, Respiratory pattern is regular, symmetrical. GI: Abdomen is non-distended, obese, Bowel sounds present X 4 quads. Abd is soft and non tender X 4 quads. Reports lower abdominal pain, diarrhea. : No signs and/or symptoms were reported regarding the genitourinary system. EENT: No deficits noted. No signs and/or symptoms were reported regarding the EENT system. Derm: Skin is pink, warm \T\ dry. Musculoskeletal: Circulation, motion, and sensation intact. Range of motion: intact in all extremities. 20:16 Reassessment: Patient and/or family updated on plan of care and expected duration. Pain ha1 level reassessed. Patient is alert, oriented x 3, equal unlabored respirations, skin warm/dry/pink. awaiting on lab results. Vital Signs: 18:22 BP 125 / 91; Pulse 82; Resp 18; Temp 98.2; Pulse Ox 97% on R/A; Weight 91.17 kg; Height vg1 5 ft. 2 in. (157.48 cm); Pain 8/10; 19:15 BP 114 / 53; Pulse 76; Resp 16 S; Pulse Ox 100% on R/A; ha1 19:49 BP 109 / 64; Pulse 76; Resp 19 S; Pulse Ox 98% on R/A; as6 18:22 Body Mass Index 36.76 (91.17 kg, 157.48 cm) vg1 ED Course: 17:35 Patient arrived in ED. am2 17:54 Marybel Bella FNP-C [facility] kb 17:54 Everette Stiles MD is Attending Physician. kb 18:25 Triage completed. vg1 18:25 Arm band placed on. vg1 19:06 Dimitrios Tamayo, RN is Primary Nurse. as6 19:20 Patient has correct armband on for positive identification. Placed in gown. Bed in low ha1 position. Call light in reach. Side rails up X 1. Adult w/ patient. 19:20 Inserted saline lock: 20 gauge in right antecubital area, using aseptic technique. ha1 Blood collected. 19: CBC with Diff Sent. ha1 19:26 CMP Sent. ha1 19:26 Lipase Sent. ha1 20:31 No provider procedures requiring assistance completed. IV discontinued, intact, ha1 bleeding controlled, No redness/swelling at site. Pressure dressing applied. Administered Medications: No medications were administered Medication: 20:32 VIS not applicable for this client. ha1 Outcome: 19:59 Discharge ordered by . kb 20:31 Discharged to home ambulatory, with family. ha1 20:31 Condition: stable 20:31 Discharge instructions given to patient, family, Instructed on discharge instructions, follow up and referral plans. Demonstrated understanding of instructions, follow-up care. 20:32 Patient left the ED. ha1 Signatures: Marybel Bella, GENNAROC SOLEDAD-Tegan Araya Victoria, RN RN vg1 Dimitrios Tamayo, RN RN as6 Erendira Balderrama, RN RN ha1
--- NOTE | 2022-04-12 19:59 | EDPHYS ---
Physician Documentation [facility] Name: Sita Delgado Age: 62 yrs Sex: Female : 1960 Arrival Date: 04/12/2022 Time: 17:35 Bed 5 Private MD: ED Physician Everette Stiles HPI: 04/13 00:04 This 62 yrs old Female presents to ER via Ambulatory with complaints of kb Abdominal Pain, Diarrhea. 00:04 The patient presents with abdominal pain that is diffuse. Onset: The symptoms/episode kb began/occurred 2 month(s) ago. The symptoms do not radiate. Associated signs and symptoms: Pertinent positives: diarrhea. The symptoms are described as constant. Modifying factors: The symptoms are alleviated by nothing, the symptoms are aggravated by nothing. Severity of pain: At its worst the pain was mild moderate in the emergency department the pain is unchanged. The patient has not experienced similar symptoms in the past. The patient has not recently seen a physician. Patient reports abdominal pain and diarrhea for 2 months. . Historical: - Allergies: 04/12 18:25 Darvocet-N 100; vg1 18:25 Ketorolac; vg1 18:25 Nubain; vg1 18:25 PENICILLINS; vg1 - PMHx: 18:25 chronic back pain; cirrhosis of liver; diabetes mellitus; Hypercholesterolemia; vg1 Hypertensive disorder; Thyroid problem; - PSHx: 18:25 Appendectomy; vic knee reconstructive sx; carpal tunnel repair; Cholecystectomy; vg1 hysterectomy; - Immunization history:: Client reports receiving the 2nd dose of the Covid vaccine. - Social history:: Smoking status: Patient denies any tobacco usage or history of. ROS: 04/13 00:04 Constitutional: Negative for fever, chills, and weight loss. kb Abdomen/GI: Positive for abdominal pain, diarrhea. All other systems are negative. Exam: 00:04 Constitutional: This is a well developed, well nourished patient who is awake, alert, kb and in no acute distress. Head/Face: Normocephalic, atraumatic. ENT: Moist Mucous membranes Cardiovascular: Regular rate and rhythm with a normal S1 and S2. No gallops, murmurs, or rubs. No pulse deficits. Respiratory: Respirations even and unlabored. No increased work of breathing. Talking in full sentences Skin: Warm, dry with normal turgor. Normal color. MS/ Extremity: Pulses equal, no cyanosis. Neurovascular intact. Full, normal range of motion. Neuro: Awake and alert, GCS 15, oriented to person, place, time, and situation. Moves all extremities. Normal gait. Psych: Awake, alert, with orientation to person, place and time. Behavior, mood, and affect are within normal limits. 00:04 Abdomen/GI: Inspection: abdomen appears normal, Bowel sounds: normal, Palpation: soft, in all quadrants, mild abdominal tenderness, in all quadrants. Vital Signs: 04/12 18:22 BP 125 / 91; Pulse 82; Resp 18; Temp 98.2; Pulse Ox 97% on R/A; Weight 91.17 kg; Height vg1 5 ft. 2 in. (157.48 cm); Pain 8/10; 19:15 BP 114 / 53; Pulse 76; Resp 16 S; Pulse Ox 100% on R/A; ha1 19:49 BP 109 / 64; Pulse 76; Resp 19 S; Pulse Ox 98% on R/A; as6 18:22 Body Mass Index 36.76 (91.17 kg, 157.48 cm) vg1 MDM: 18:31 Patient medically screened. kb 04/13 00:05 Differential diagnosis: gastritis, non-specific abd pain, C. difficile. Data reviewed: kb vital signs, nurses notes. Data interpreted: Pulse oximetry: on room air is 98 %. Interpretation: normal. Counseling: I had a detailed discussion with the patient and/or guardian regarding: the historical points, exam findings, and any diagnostic results supporting the discharge/admit diagnosis, lab results, the need for outpatient follow up, a family practitioner, to return to the emergency department if symptoms worsen or persist or if there are any questions or concerns that arise at home. ED course: Diagnostic test considered but not performed: CT scan considered but patient was seen here previously for same pain and CTs scan was normal. Pain has not changed since that ER visit. Review of external records: Last ER visit notes reviewed; History obtained from: Patient. 04/12 18:32 Order name: CBC with Diff; Complete Time: 20:06 kb 04/12 18:32 Order name: CMP; Complete Time: 19:53 kb 04/12 18:32 Order name: Lipase; Complete Time: 19:53 kb 04/12 18:32 Order name: C.difficile kb 04/12 18:32 Order name: Stool Culture kb 04/12 19:36 Order name: CBC Smear Scan; Complete Time: 20:06 EDMS 04/12 18:32 Order name: IV Saline Lock; Complete Time: 19:26 kb 04/12 18:32 Order name: Labs collected and sent; Complete Time: 19:26 kb Administered Medications: No medications were administered Disposition: 15:08 Co-signature as Attending Physician, Everette Stiles MD. rn Disposition Summary: 04/12/22 19:59 Discharge Ordered Location: Home kb Condition: Stable kb Diagnosis - Diarrhea, unspecified kb Followup: kb - With: Emergency Department - When: As needed - Reason: Worsening of condition Followup: kb - With: Private Physician - When: 2 - 3 days - Reason: Recheck today's complaints, Continuance of care, Re-evaluation by your physician Discharge Instructions: - Discharge Summary Sheet kb - Diarrhea, Adult, [id number] kb Forms: - Medication Reconciliation Form kb - Thank You Letter kb - Antibiotic Education kb - Prescription Opioid Use kb Signatures: Dispatcher [employer] EDWA Marybel Bella, NON DESTRUCTIVE TESTING TECHNICIAN-C NON DESTRUCTIVE TESTING TECHNICIAN-Aurelianob Everette Stiles MD MD rn Garcia, Victoria RN RN vg1
[2022-04-12 20:04] LABS: Blood Morphology Comment NOT SEEN (NOT SEEN); Platelet Estimate DECR; White Blood Cell Scan OK (OK)
[2022-04-12 20:52] VITALS: TEMP 98.2
[2022-04-12 20:59] VITALS: BP 109/64; O2SAT 98
[2022-04-14 09:14] LABS: C.diff Antigen/Toxin Ag pos : Tox neg (NEG : NEG)
== END 2022-04-12 20:32 | disposition home or self-care (01) ==
LOC: ER 17:26
DX: R19.7 Diarrhea, unspecified (principal); I10 Essential (primary) hypertension; E11.9 Type 2 diabetes mellitus without complications; K74.60 Unspecified cirrhosis of liver; Z88.0 Allergy status to penicillin; Z88.5 Allergy status to narcotic agent; Z88.8 Allergy status to other drugs, medicaments and biological substances
CPT/HCPCS: 36415; 80053; 83690; 85025; 87045; 87046; 87324; 87493; 99283

== ENCOUNTER 2022-05-16 19:14 | Emergency (ER) | payer OTHER ==
--- OUTSIDE RECORDS SUMMARY | 2022-05-16 19:33 | XMS REPORT | Continuity of Care Document ---
:1960 Author Organization [facility] t Address [address] [place] [address] Care Team Providers Name Role Phone PCP, [...] Number Effective Date Expiration Date S ource [facility] WELLMED [id number] 2021 00:00:00 WELLMED/[facility] [id number] 2021 MEDICARE GOLD PPO 00:00:00 CSNP Problems Condition Condition Condition Status Onset Resolution Last Treating Co mments Source Name Details Category Date Date Treatment Clinician Date No known No known Disease Unive rs active active ity of problems problems [facility] Allergies, Adverse Reactions, Alerts Allergy Allergy Status [...] Drug Active Univers ALLERGIE Class ity of [facility] Social History Social Habit Start Date Stop Date Quantity Comments Source ASSERTION [facility] Exposure to 2022-01-29 2022-02-08 Not sure [facility] SARS-CoV-2 (event) 00:00:00 07:25:00 Medica l Branch Sex Ass[birth year] At [birth year] [facility] 00:00:00 00:00:00 Medical Branch Smoking Status Start Date Stop Date Source Tobacco smoking consumption [facility] Branch Medications Ordered Filled Start Stop Current [...] No TABLET 2-14 DAILY. 00:00: 00 TAKE 2021-04 No TABLET 2-14 DAILY WITH 00:00: BREAKFAST. 00 TAKE 2021-04 No 50 TABLET BY 2-14 MOUTH EVERY 00:00: 4 TO 6 00 HOURS NEEDED Dose 2021-04 No Unknown 2-14 00:00: 00 Dose 2021-04 No Unknown 2-14 00:00: 00 TAKE 2021-04 No TABLET BY 2-14 MOUTH EVERY [...] No 5 Unknown 2-14 00:00: 00 TAKE 2021-04 No 30 TABLET BY 2-14 MOUTH 2 00:00: TIMES A DAY 00 NEEDED ONDANSETRON 2021-04 No 30 HYDROCHLORI 2-14 DE 4 MG 00:00: TABS 00 TAKE 2021-04 No 20 TABLET BY 2-14 MOUTH [...] 2021-04- No 1{tbl} 1 tablet, Univers -acetaminop 1-05 11-05 Oral, ity of hen (NORCO 12:45: 12:48 ONCE, 1 [place] as 5) 5-325 mg 00 :00 dose, On Medi [place] tablet 1 Sat Branch tablet 02/08/22 at 0745, GEORGE HYDROcodone 2021-04- No 4647 1{tbl} Take 1 U nivers -acetaminop 04-10- tablet by it y of hen 5-325 [...] 00 UNITHROID 2021-0 No 75 MCG TABS 9- 00:00: 00 UNITHROID 2021-0 No 75 MCG TABS 9- 00:00: 00 Dose 2021-0 No 30 Unknown 12-30 00:00: 00 HUMULIN 2-0 No 70/30 - KWIKPEN 00:00: (70-30) 100 00 UNIT/ML SUPN Dose 2021-0 No Unknown 12-27 00:00: 00 Dose 2021-0 No Unknown 12-27 00:00: 00 HUMULIN 2-0 No 30 70/30 - KWIKPEN 00:00: (70-30) 100 00 [...] 8-22 30 MG TBCR 00:00: 00 TRINTELLIX 2022-0 No 20 MG [...] No 30 Unknown 8-10 00:00: 00 METOCLOPRAM 2-0 No RHODA 8-10 HYDROCHLORI 00:00: DE 10 MG 00 TABS Dose 2-0 No 30 Unknown 8-10 00:00: 00 MIRTAZAPINE [...] Unknown 7- 00:00: 00 Dose 2022-0 No 4 Unknown [...] lisinopril 2022-0 No 1mg 5 mg tablet 7-21 00:00: 00 Myrbetriq 2022-0 No 1mg 25 [...] TAKE 1 2021-0 No 500 TABLET BY 7 MOUTH EVERY 00:00: 8 HOURS FOR 00 10 DAYS &lt 2022-0 No 250 7- 00:00: 00 &lt 2022-0 No 10 7- 00:00: 00 &lt 2022-0 No 25 7- 00:00: 00 &lt 2022-0 No 7-21 00:00: 00 &lt 2022-0 No 7-21 00:00: 00 TAKE 1 2021-0 No 1000 TABLET 10-24 TWICE 00:00: DAILY. 00 Dose 2-0 No Unknown 7 00:00: 00 Dose 2-0 No Unknown 7 00:00: 00 citalopram 2-0 No 1mg 20 mg 7-21 tablet 00:00: 00 Dose 2022-0 No Unknown 7- 00:00: 00 Dose 2022-0 No Unknown 7- 00:00: 00 Dose 2022-0 No Unknown 7- 00:00: 00 metoclopram 2-0 No 1mg rhoda 10 mg 7- tablet 00:00: 00 Dose 2022-0 No Unknown 7 00:00: 00 Dose 2022-0 No Unknown 7- 00:00: 00 TAKE 1 2-0 No 1000 TABLET - TWICE 00:00: DAILY. [...] 20 mg 7-21 tablet 00:00: 00 Dose 2-0 No Unknown 7 00:00: 00 Dose 2022-0 No Unknown 7 00:00: 00 Dose 2-0 No Unknown 7 00:00: 00 metoclopram 2-0 No 1mg rhoda 10 mg 7-21 tablet 00:00: 00 Dose 2-0 No Unknown 7 00:00: 00 Dose 2022-0 No Unknown 10-24 00:00: 00 TAKE 1 2-0 No 1000 [...] 00 TAKE 1 2-0 No 30unit TABLET 7- DAILY 00:00: DIRECTED. 00 TAKE 1 2-0 No TABLET 7-21 DAILY WITH 00:00: BREAKFAST. 00 citalopram 2-0 No 1mg 20 mg 7-21 tablet 00:00: 00 Dose 2-0 No 30 Unknown 7 00:00: 00 Dose 2022-0 No Unknown 7 00:00: 00 Dose 2022-0 No 5 Unknown 10-24 00:00: 00 Dose 2022-0 No 30 Unknown 10-24 00:00: 00 Dose 2022-0 No 30 Unknown 10-24 00:00: 00 Dose 2022-0 No 30 Unknown 10-24 00:00: 00 TAKE 1 2-0 No 1000 [...] - TWICE 00:00: DAILY. 00 TAKE 1 2-0 [...] TABLET 7- TWICE 00:00: DAILY. 00 Dose 2022-0 No 5 Unknown 7-20 [...] tablet 10/19/21 at 0130, Routine No known 202-0 No No known Unive rs medications 10-19 medication it y of 04:06: s [address] TAKE 1 2021-0 No 500 TABLET BY 7-13 MOUTH EVERY 00:00: 12 HOURS 00 FOR 10 DAYS &lt 2022-0 No 10-16 00:00: 00 TAKE 1 2-0 No TABLET BY 7-13 MOUTH DAILY 00:00: 00 &lt 2022-0 No 10-16 00:00: 00 &lt 2022-0 No 20 10-16 [...] 10-16 00:00: 00 TAKE 1 2022-0 No TABLET [...] 7-06 00:00: 00 &lt 2022-0 No 30 7-06 00:00: 00 TAKE 1 2022-0 No 30 TABLET BY 7- MOUTH AT 00:00: BEDTIME 00 &lt 2022-0 No 10-09 00:00: 00 Dose 2022-0 No 50 Unknown 10-09 00:00: 00 &lt 2022-0 No 20 10-09 00:00: 00 &lt 2022-0 No 10-09 00:00: 00 TAKE 1 2022-0 No [id number] TABLET 10-09 TWICE 00:00: DAILY. 00 &lt [...] 10-09 00:00: 00 TAKE 1 2022-0 No [id number] TABLET 10-09 TWICE 00:00: DAILY. 00 &lt [...] 10-09 00:00: 00 TAKE 1 2022-0 No [id number] TABLET 10-09 TWICE 00:00: DAILY. 00 &lt [...] 10-09 00:00: 00 TAKE 1 2022-0 No [id number] TABLET 10-09 TWICE 00:00: DAILY. 00 &lt [...] 10-09 00:00: 00 TAKE 1 2022-0 No [id number] TABLET 10-09 TWICE 00:00: DAILY. 00 &lt [...] 10-09 00:00: 00 TAKE 1 2022-0 No [id number] TABLET 10-09 TWICE 00:00: DAILY. 00 &lt [...] No 6-29 00:00: 00 &lt 2022-0 No 6 00:00: 00 TAKE ONE 2-0 No (1) TO TWO 09-30 (2) 00:00: TABLET(S) 00 BY MOUTH EVERY 6 HOURS NEEDED FOR PAIN , NO MORE THAN 8 TABLETS IN 24 HOURS. &lt 2022-0 No 6- 00:00: 00 &lt 2022-0 No 6-27 00:00: [...] lisinopril 2022-0 No 1mg 5 mg tablet 08-02 00:00: 00 metformin 2022-0 No 1mg 1,000 mg 4-29 tablet 00:00: 00 metoclopram 2022-0 No 1mg rhoda 10 mg 4-29 tablet 00:00: 00 Myrbetriq 2022-0 No 1mg 25 mg 4-29 tablet,exte 00:00: nded 00 release hydroxyzine 2022-0 No 1mg HCl 50 mg 4-29 tablet 00:00: 00 lisinopril 2022-0 No 1mg 5 mg tablet 08-02 00:00: 00 Dose 2022-0 No Unknown 4-29 00:00: 00 metoclopram 2022-0 No 1mg rhoda 10 mg 4-29 tablet 00:00: 00 Myrbetriq 2022-0 No 1mg 25 mg 4-29 tablet,exte 00:00: nded 00 release hydroxyzine 2022-0 No 1mg HCl 50 mg 4-29 tablet 00:00: 00 lisinopril 2022-0 No 1mg 5 mg tablet 4 00:00: 00 Dose 2022-0 No Unknown 4-29 00:00: 00 metoclopram 2022-0 No 1mg rhoda 10 mg 4-29 tablet 00:00: 00 Myrbetriq 2022-0 No 1mg 25 mg 4-29 tablet,exte 00:00: nded 00 release lisinopril 2022-0 No 1mg 5 mg tablet 4 00:00: 00 metoclopram 2022-0 No 1mg rhoda [...] 4-27 DAILY WITH 00:00: BREAKFAST. 00 citalopram 2022-0 No 1mg 20 mg 4-27 tablet 00:00: 00 atorvastati 2022-0 No 1mg n 10 mg 4-27 tablet 00:00: 00 ferrous 2022-0 No 1(65 mg sulfate 325 4-27 iron) mg (65 mg 00:00: iron) 00 tablet Dose 2022-0 No 30 Unknown -27 00:00: 00 Dose 2022-0 No 30 Unknown [...] 20 mg 4-27 tablet 00:00: 00 atorvastati 2021-0 No 1mg n 10 mg 4-27 tablet 00:00: 00 Dose 2-0 No Unknown 4-27 00:00: 00 levothyroxi 2-0 No 1mcg ne 75 mcg 4-27 tablet 00:00: 00 levothyroxi 2021-0 No 1mcg ne 200 mcg 4-27 tablet 00:00: 00 levothyroxi 2021-0 No 1mcg ne 300 mcg 4-27 tablet 00:00: 00 ferrous 2-0 No 1(65 mg sulfate 325 -27 iron) mg (65 mg 00:00: iron) 00 tablet omeprazole 2021-0 No 1mg 40 mg - capsule,del 00:00: ayed 00 release Dose 2-0 [...] 00 metformin 2022-0 No 1mg 1,000 mg 4- tablet 00:00: 00 levothyroxi 2022-0 No 1mcg ne 75 mcg 4- tablet 00:00: 00 levothyroxi 2022-0 No 1mcg ne 200 mcg 4- tablet 00:00: 00 hydrocortis 2022-0 No 1mg [...] 2022-0 No Unknown 1-20 00:00: 00 neomycin-po 2-0 No 4mg/mL- lymyxin-hyd [...] 2022-0 No Unknown - 00:00: 00 Dose 2022-0 No Unknown - 00:00: 00 levothyroxi 2-0 [...] nded 00 release Dose 2-0 No Unknown - 00:00: 00 metformin 2022-0 No 1mg 1,000 mg 1-19 tablet 00:00: 00 Dose 2022-0 No Unknown -19 00:00: 00 metoprolol 2022-0 No 1mg tartrate 25 1-19 mg tablet 00:00: 00 metoclopram 2022-0 No 1mg rhoda 10 mg 1-19 tablet 00:00: 00 azithromyci 2022-0 No mg n 250 mg 1-19 tablet 00:00: 00 Dose 2022-0 No Unknown - 00:00: 00 Dose 2022-0 No Unknown - 00:00: 00 Dose 2022-0 No Unknown - 00:00: 00 Dose 2022-0 No Unknown - 00:00: 00 neomycin-po 2022-0 [...] metoclopram 2022-0 No 1mg rhoda 10 mg -19 tablet [...] 2022-0 No Unknown 1-19 00:00: 00 hydroxyzine 2-0 No 1mg [...] 1-19 00:00: 00 Dose 2022-0 No Unknown - 00:00: 00 Dose 2022-0 No Unknown - 00:00: 00 levothyroxi 2022-0 No 1mcg ne 150 mcg 1-19 capsule 00:00: 00 Dose 2022-0 No Unknown 1-06 00:00: 00 Dose 2022-0 No Unknown 1-06 00:00: 00 Dose 2022-0 No 30 Unknown 1-06 00:00: 00 lisinopril 2022-0 No 1mg 5 mg tablet - 00:00: 00 lisinopril 2022-0 No 1mg 5 mg tablet 04-11 00:00: 00 lisinopril 2022-0 No 1mg 5 mg tablet 04-11 00:00: 00 lisinopril 2022-0 No 1mg 5 mg tablet 1- 00:00: 00 hydroxyzine 2022-0 No 1mg HCl [...] No 1mg tablet 2-16 00:00: 00 levothyroxi 2021-1 No 1mcg ne 150 mcg 2-16 capsule [...] 2-16 capsule 00:00: 00 Zofran 4 mg 2020-04 No 1mg tablet 2-16 00:00: 00 levothyroxi [...] 150 mcg 1-04 capsule 00:00: 00 levothyroxi 2020- No 1mcg ne 150 mcg 1-04 capsule 00:00: 00 levothyroxi 2020- No 1mcg ne 150 mcg 1-04 capsule 00:00: 00 levothyroxi 2020- No 1mcg ne 150 mcg 1-04 capsule 00:00: 00 levothyroxi 2020- No 1mcg ne 150 mcg 1-04 capsule [...] mg 00 capsule metoclopram 1-0 No 1mg rhoda 10 mg 9-13 tablet [...] Source Name Name Influenza, injectable, 2022-02-18 Completed [facility] 00:00:00 Kidney, preservative-free, quadrivalent Influenza, injectable, 2022-02-18 Completed Madin [facility] 00:00:00 Kidney, preservative-free, quadrivalent Influenza, injectable, 2022-02-18 Completed [facility]in [facility] [...] 12:26:00 151 mm[Hg] [facility] Diastolic blood 2022-02-08 12:26:00 76 mm[Hg] Unive rsity [facility] Heart rate 2022-02-08 12:26:00 102 /min [facility] Body temperature 2022-02-08 12:26:00 37 Keli [facility] Respiratory rate 2022-02-08 12:26:00 20 /min [facility] Body height 2022-02-08 12:26:00 157.5 cm [facility] Body weight 2022-02-08 12:26:00 91.627 kg [facility] BMI 2022-02-08 12:26:00 36.95 kg/m2 [facility] Oxygen saturation in 2022-02-08 12:26:00 99 /min University of Arterial blood by [employer] oximetry Branch Systolic blood 2021-12-17 04:49:00 147 mm[Hg] [facility] Diastolic blood 2021-12-17 04:49:00 74 mm[Hg] [facility]ive rs[facility] Heart rate 2021-12-17 04:49:00 97 /min [facility] Body temperature 2021-12-17 04:49:00 37 Keli [facility] Respiratory rate 2021-12-17 04:49:00 18 /min [facility] Body weight 2021-12-17 04:49:00 88.905 kg [facility] [place] [facility] BMI 2021-12-17 04:49:00 35.85 kg/m2 [facility] Oxygen saturation in 2021-12-17 04:49:00 100 /min University of Arterial blood by [employer] Pulse oximetry Branch Systolic blood 2021-10-19 08:10:00 123 mm[Hg] Univer sity of pressure [facility] Diastolic blood 2021-10-19 08:10:00 87 mm[Hg] Unive rsity of pressure [facility] Heart rate 2021-10-19 08:10:00 82 /min [facility] Respiratory rate 2021-10-19 08:10:00 18 /min [facility] Oxygen saturation in 2021-10-19 08:10:00 98 /min [facility] Arterial blood by [facility] Pulse oximetry Branch Body temperature 2021-10-19 04:15:00 36.83 Keli [facility] height 2021-10-19 04:15:00 157.5 cm [facility] Body weight 2021-10-19 04:15:00 88.905 kg [facility] BMI 2021-10-19 04:15:00 35.85 kg/m2 [facility] BP Systolic 2022-02-18 11:05:00 97 mm[Hg] BP [...] 3 VW LEFT 2022-02-08 13:19:39 Chad Marvin [facility] CONSENT/REFUSAL FOR 2022-02-08 12:22:24 Doctor Unassigned, No [facility] [place] [facility] AND Name Medical Branch TREATMENT NOTICE OF PRIVACY 2021-12-17 04:36:17 Doctor Unassigned, No Univ ersity [facility] Name Medical Branch CONSENT/REFUSAL FOR 2021-12-17 04:35:03 Doctor Unassigned, No [facility] [place] [facility]NOS[facility] AND Name Medical Branch TREATMENT XR HIPS 3 VW LEFT 2021-10-19 04:42:39 Yovana Rod [facility] Medical Branch NOTICE OF PRIVACY 2021-10-19 04:04:38 Doctor Unassigned, No Univ [facility] Name Medical Branch CONSENT/REFUSAL FOR 2021-10-19 04:04:16 Doctor Unassigned, No [facility] [place] DIAGNOSIS AND Name Medical Branch TREATMENT Plan of Care Planned Activity Planned Date Details Comments Source Goal Plan of Care Note [code = 88165-8] Goal Plan of Care Note [code = 15229-1] Goal Plan of Care Note [code = 43637-9] Goal Plan of Care Note [code = 34093-4] Goal Plan of Care Note [code = 00298-4] Goal Plan of Care Note [code = 65501-2] Goal Plan of Care Note [code = 53924-4] Goal Plan of Care Note [code = 97607-9] Goal Plan of Care Note [code = 79161-1] Goal Plan of Care Note [code = 82671-7] Goal Plan of Care Note [code = 85051-3] Goal Plan of Care Note [code = 92400-9] Goal Plan of Care Note [code = 52106-1] Goal Plan of Care Note [code = 96666-3] Goal Plan of Care Note [code = 37051-7] Goal Plan of Care Note [code = 65022-9] Goal Plan of Care Note [code = 48414-1] Goal Plan of Care Note [code = 98006-1] Goal Plan of Care Note [code = 98621-9] Goal Plan of Care Note [code = 42898-9] Goal Plan of Care Note [code = 45972-7] Goal Plan of Care Note [code = 88253-3] Goal Plan of Care Note [code = 05196-3] Goal Plan of Care Note [code = 47702-3] Goal Plan of Care Note [code = 16076-8] Goal Plan of Care Note [code = 85232-6] Goal Plan of Care Note [code = 80053-5] Goal Plan of Care Note [code = 52258-9] Goal Plan of Care Note [code = 78654-6] Goal Plan of Care Note [code = 59066-8] Goal Plan of Care Note [code = 92408-9] Goal Plan of Care Note [code = 60558-0] Goal Plan of Care Note [code = 44204-7] Goal Plan of Care Note [code = 01499-5] Goal Plan of Care Note [code = 42898-0] Goal Plan of Care Note [code = 71404-1] Goal Plan of Care Note [code = 97720-5] Goal Plan of Care Note [code = 10136-2] Goal Plan of Care Note [code = 99560-5] Goal Plan of Care Note [code = 85445-1] Goal Plan of Care Note [code = 83591-8] Goal Plan of Care Note [code = 77177-8] Goal Plan of Care Note [code = 26709-9] Goal Plan of Care Note [code = 99212-2] Goal Plan of Care Note [code = 82460-7] Goal Plan of Care Note [code = 85066-6] Goal Plan of Care Note [code = 87125-9] Goal Plan of Care Note [code = 70611-5] Goal Plan of Care Note [code = 86107-8] Goal Plan of Care Note [code = 01622-2] Goal Plan of Care Note [code = 70429-3] Goal Plan of Care Note [code = 27105-9] Goal Plan of Care Note [code = 08587-7] Goal Plan of Care Note [code = 93145-4] Goal Plan of Care Note [code = 47773-6] Goal Plan of Care Note [code = 40638-8] Goal Plan of Care Note [code = 21191-5] Goal Plan of Care Note [code = 35069-1] Goal Plan of Care Note [code = 69308-5] Goal Plan of Care Note [code = 85392-0] Goal Plan of Care Note [code = 01953-2] Goal Plan of Care Note [code = 44447-6] Goal Plan of Care Note [code = 02819-0] Goal Plan of Care Note [code = 72244-6] Goal Plan of Care Note [code = 87669-6] Goal Plan of Care Note [code = 90884-9] Goal Plan of Care Note [code = 78338-4] Goal Plan of Care Note [code = 86467-3] Goal Plan of Care Note [code = 39751-5] Goal Plan of Care Note [code = 67016-5] Goal Plan of Care Note [code = 80719-2] Goal Plan of Care Note [code = 51235-5] Goal Plan of Care Note [code = 16927-4] Goal Plan of Care Note [code = 53213-2] Goal Plan of Care Note [code = 88409-8] Goal Plan of Care Note [code = 81036-5] Goal Plan of Care Note [code = 66613-8] Goal Plan of Care Note [code = 13190-1] Goal Plan of Care Note [code = 95582-1] Goal Plan of Care Note [code = 91158-5] Goal Plan of Care Note [code = 18395-1] Goal Plan of Care Note [code = 28206-4] Goal Plan of Care Note [code = 35852-5] Goal Plan of Care Note [code = 91328-3] Goal Plan of Care Note [code = 23722-5] Goal Plan of Care Note [code = 02727-4] Goal Plan of Care Note [code = 12037-5] Goal Plan of Care Note [code = 94091-2] Goal Plan of Care Note [code = 59363-2] Goal Plan of Care Note [code = 85878-7] Goal Plan of Care Note [code = 72731-5] Goal Plan of Care Note [code = 10216-2] Goal Plan of Care Note [code = 78409-5] Goal Plan of Care Note [code = 09258-6] Goal Plan of Care Note [code = 20956-6] Goal Plan of Care Note [code = 32319-7] Goal Plan of Care Note [code = 07291-6] Goal Plan of Care Note [code = 68545-6] Goal Plan of Care Note [code = 49404-0] Goal Plan of Care Note [code = 28047-2] Goal Plan of Care Note [code = 29144-1] Goal Plan of Care Note [code = 72220-7] Goal Plan of Care Note [code = 78460-8] Goal Plan of Care Note [code = 99810-6] Goal Plan of Care Note [code = 81288-1] Goal Plan of Care Note [code = 60188-0] Goal Plan of Care Note [code = 51109-4] Goal Plan of Care Note [code = 57447-5] Goal Plan of Care Note [code = 91740-6] Goal Plan of Care Note [code = 86305-4] Goal Plan of Care Note [code = 88913-8] Goal Plan of Care Note [code = 48818-1] Goal Plan of Care Note [code = 44625-3] Goal Plan of Care Note [code = 61169-4] Goal Plan of Care Note [code = 42528-7] Goal Plan of Care Note [code = 17574-5] Goal Plan of Care Note [code = 43793-4] Goal Plan of Care Note [code = 27380-6] Goal Plan of Care Note [code = 47455-0] Goal Plan of Care Note [code = 57833-8] Goal Plan of Care Note [code = 70805-1] Goal Plan of Care Note [code = 36521-0] Goal Plan of Care Note [code = 13447-0] Goal Plan of Care Note [code = 96817-1] Goal Plan of Care Note [code = 47859-8] Goal Plan of Care Note [code = 95660-4] Goal Plan of Care Note [code = 89008-3] Goal Plan of Care Note [code = 31618-6] Goal Plan of Care Note [code = 91920-5] Goal Plan of Care Note [code = 27066-5] Goal Plan of Care Note [code = 41287-5] Goal Plan of Care Note [code = 62724-5] Goal Plan of Care Note [code = 66431-6] Goal Plan of Care Note [code = 02768-3] Goal Plan of Care Note [code = 06560-1] Goal Plan of Care Note [code = 77219-4] Goal Plan of Care Note [code = 68872-5] Goal Plan of Care Note [code = 35293-8] Goal Plan of Care Note [code = 08452-5] Goal Plan of Care Note [code = 46750-9] Goal Plan of Care Note [code = 81995-6] Goal Plan of Care Note [code = 58100-4] Goal Plan of Care Note [code = 83645-2] Goal Plan of Care Note [code = 91770-7] Goal Plan of Care Note [code = 66620-4] Goal Plan of Care Note [code = 35021-6] Goal Plan of Care Note [code = 75231-6] Goal Plan of Care Note [code = 03169-5] Goal Plan of Care Note [code = 96182-0] Goal Plan of Care Note [code = 21639-9] Goal Plan of Care Note [code = 42710-7] Goal Plan of Care Note [code = 83058-1] Goal Plan of Care Note [code = 61267-5] Goal Plan of Care Note [code = 70783-5] Goal Plan of Care Note [code = 35763-6] Goal Plan of Care Note [code = 47806-7] Goal Plan of Care Note [code = 40856-6] Goal Plan of Care Note [code = 80655-4] Goal Plan of Care Note [code = 75325-8] Goal Plan of Care Note [code = 55554-0] Goal Plan of Care Note [code = 54882-6] Goal Plan of Care Note [code = 19931-2] Goal Plan of Care Note [code = 46662-4] Goal Plan of Care Note [code = 07848-8] Goal Plan of Care Note [code = 25074-6] Goal Plan of Care Note [code = 84056-1] Goal Plan of Care Note [code = 19481-4] Goal Plan of Care Note [code = 78077-7] Goal Plan of Care Note [code = 50140-2] Goal Plan of Care Note [code = 37928-5] Goal Plan of Care Note [code = 87606-1] Goal Plan of Care Note [code = 97350-9] Goal Plan of Care Note [code = 88847-2] Goal Plan of Care Note [code = 73830-9] Goal Plan of Care Note [code = 53294-4] Goal Plan of Care Note [code = 32169-8] Goal Plan of Care Note [code = 13897-8] Goal Plan of Care Note [code = 43173-7] Goal Plan of Care Note [code = 67945-5] Goal Plan of Care Note [code = 41812-4] Goal Plan of Care Note [code = 50716-3] Goal Plan of Care Note [code = 38526-0] Goal Plan of Care Note [code = 82524-2] Goal Plan of Care Note [code = 42763-1] Goal Plan of Care Note [code = 31930-4] Goal Plan of Care Note [code = 32742-8] Goal Plan of Care Note [code = 40332-5] Goal Plan of Care Note [code = 18810-1] Goal Plan of Care Note [code = 17545-3] Goal Plan of Care Note [code = 57235-9] Goal Plan of Care Note [code = 49173-3] Goal Plan of Care Note [code = 66598-3] Goal Plan of Care Note [code = 13564-6] Goal Plan of Care Note [code = 24607-5] Goal Plan of Care Note [code = 13329-4] Goal Plan of Care Note [code = 42392-2] Goal Plan of Care Note [code = 43966-2] Goal Plan of Care Note [code = 59619-7] Goal Plan of Care Note [code = 25884-2] Goal Plan of Care Note [code = 79035-9] Goal Plan of Care Note [code = 51407-1] Goal Plan of Care Note [code = 92414-7] Goal Plan of Care Note [code = 96997-0] Goal Plan of Care Note [code = 81126-4] Goal Plan of Care Note [code = 37642-8] Goal Plan of Care Note [code = 01497-7] Encounters Start End Encounter Admission Attending Care Care Encounter Source Date/Time Date/Time Type Type Clinicians Facility Department ID 2022-01-[address] [facility] [id number] [place] 15:02:53 [id number] [facility] 2021-09-19 Outpatient SCOUT [facility] [id number] [place] 01:03:24 JULIA [id number] [facility] 2022-03-27 2022-03-27 Outpatient JAI VERGARA [id number] Gene 09:47:25 09:47:25 [id number] F Abbe 2022-03-27 2022-03-27 Outpatient [id number] 00:00:00 00:00:00 Visit [id number]-[id number] -[id number] [id number] 2022-03-13 2022-03-13 Outpatient [facility] [id number] Gene 17:00:33 17:00:33 [id number] F Abbe 2022-03-13 2022-03-13 Outpatient [id number]- [id number] 00:00:00 00:00:00 Visit [id number]-607j [id number] -[id number] [id number] 2022-02-18 2022-02-18 Outpatient [facility] [id number] Gene 10:55:27 10:55:27 [id number] F Abbe 2022-02-18 2022-02-18 Outpatient [id number] 00:00:00 00:00:00 Visit qk14-99v1 [id number] -8289-9be 289-9be0be 2mmku652h ns133b 2022-02-08 2022-02-08 Emergency X CHAD MARVIN [facility] ERT 1 [id number] Univers 07:27:00 08:55:00 [facility] 2022-02-08 Emergency Yon [facility] [id number] Univers 07:27:00 08:55:00 Chad [facility] [place] 350.1.13.10 ity [facility] 4.2.7.2.686 [facility] [id number] [address] 2022-01-14 2022-01-14 Outpatient [facility] [id number] Gene 10:28:11 10:28:11 [id number] F Abbe 2022-01-14 2022-01-14 Outpatient [id number]- [id number] ie8i28-a 00:00:00 00:00:00 Visit td02-935w f88-785a-1 -7n32-w70 i34-w091eu 5rz55aelu 51adba 2022-01-02 2022-01-02 Outpatient [facility] [id number] Gene 15:06:03 15:06:03 [id number] F Abbe 2021-12-16 2021-12-17 Emergency X EREN OCHOA [facility] ERT [id number] [facility] 23:50:00 01:28:00 EREN OCHOA [facility] 2021-12-16 2021-12-17 [id number] [facility] 23:50:00 01:28:00 Eren [place] 350.1.13.10 i ty of [place] 4.2.7.2.686 [facility] [id number] [address] 2021-12-02 2021-12-02 Outpatient [id number] 00:00:00 00:00:00 Visit 0k65-6o32 g09-0v73-5 -3rd9-o49 af5-y92276 [id number] 3611-07-21 2021-10-24 Outpatient [id number]- [id number] hz11u3-2 00:00:00 00:00:00 Visit 422b-482d 22b-482d-8 -8157-b70 157-b704e0 2a07v6alj 0f6bdd 2021-10-18 2021-10-19 [facility] [place] [facility] [id number] Univers 23:20:00 03:26:00 YOVANA hearn [facility] 2021-10-18 2021-10-19 Emergency [facility] [place] [id number] [facility] 23:20:00 03:26:00 Yovana [place] [id number] i ty of [place] [id number] [facility] [id number] [address] 2021-09-30 2021-09-30 Outpatient [id number] 00:00:00 00:00:00 Visit 2d3r-5xvm [id number]-8iic-[id number] -[id number]-jjb [id number] 2021-06-20 2021-06-20 Outpatient SCOUT, [facility] [address] [facility] 12:04:00 23:59:00 JULIA Results Test Description Test Time Test Comments Results Result Comments Source TSH, THIRD GENERATION 2022-01-15 06:52:55 Test Item Value Reference Range Interpretation Comme nts TSH, THIRD GENERATION (test code = 2821) 2.700 UIU/ML 0.400-4.100 COMPREHENSIVE METABOLIC [id number] 04:09:28 Test Item Value Reference Range Interpretation Comments GLUCOSE (test code = 169 MG/DL 70-99 H 2216) BUN (test code = 17 MG/DL 8-23 2207) CREATININE (test 0.86 MG/DL 0.60-1.30 code = 2214) eGFR (2020 CKD-EPI) 76 ML/MIN/1.73 >60 (test code = 75527) CALC BUN/CREAT (test 20 RATIO 6-28 code = 2235) SODIUM (test code = 141 MEQ/L 394-028 6117) POTASSIUM (test code 4.3 MEQ/L 3.5-5.4 = 2227) CHLORIDE (test code 99 MEQ/L 95-107 = 221) CARBON DIOXIDE (test 25 MEQ/L 19-31 code [...] 2204) AST (test code = 35 U/L -40 8) ALT (test code = 34 U/L 5-40 2219) HEMOGLOBIN [id number] 02:13:42 Test Item Value Reference Range Interpretation Comments HEMOGLOBIN A1c (test 6.8 % 4.2-5.6 H [employer]IC AN DIABETES code = 14529) ASSOCIATION IDELINES FOR HGB A1C: PREDIABETES/INC REASED [...] INDICATED, ALL TESTING PER FORMED ATCLINICAL PATH [facility], [facility]. [address] [place] [address] LABORATORY DIRE CTOR: LILLI VELAZQUEZ M.D. CLIA NUMBER [id number] [facility]. [id number] CBC W/AUTO DIFF WITH [id number] 02:02:15 Test Item Value Reference Range Interpretation [...] RBCS 0.00 K/UL 0.00-0.11 (test code = 44874) COMPREHENSIVE METABOLIC [id number] 00:00:00 Test Item Value Reference Range Interpretation Comments GLUCOSE (test code = 2217) 169 MG/DL BUN (test code = 2208) 17 MG/DL CREATININE (test code = 2214) 0.86 MG/DL eGFR (2020 CKD-EPI) (test code 76 ML/MIN/1.73 = 75525) CALC BUN/CREAT (test code = 20 RATIO 2234) SODIUM (test code = 2231) 141 MEQ/L POTASSIUM (test code = 2228) 4.3 MEQ/L CHLORIDE (test code = 2215) 99 MEQ/L CARBON DIOXIDE (test code = 25 MEQ/L 2205) CALCIUM (test code = 2209) 9.6 MG/DL PROTEIN, TOTAL (test code = 7.6 G/DL 2228) ALBUMIN (test code = 220) 4.3 G/DL CALC GLOBULIN (test code = 3.3 G/DL 2239) CALC A/G RATIO (test code = 1.3 RATIO 2233) BILIRUBIN, TOTAL (test code = 0.5 MG/DL 2206) ALKALINE PHOSPHATASE (test 92 U/L code = 2204) AST (test code = 2218) 35 U/L ALT (test code = 2219) 34 U/L COMPREHENSIVE METABOLIC [id number] 00:00:00 Test Item Value Reference Range Interpretation Comments GLUCOSE (test code = 2217) 169 MG/DL BUN (test code = 2208) 17 MG/DL CREATININE (test code = 2214) 0.86 MG/DL eGFR (2020 CKD-EPI) (test code 76 ML/MIN/1.73 = 94886) CALC BUN/CREAT (test code = 20 RATIO [...] code = 2219) 34 U/L CBC W/AUTO [id number] 00:00:00 Test Item Value Reference Range Interpretation [...] NUCLEATED RBCS (test code = 0.00 K/UL 06023) CBC W/AUTO [id number] 00:00:00 Test Item Value Reference Range Interpretation [...] NUCLEATED RBCS (test code = 0.00 K/UL 57398) CBC W/AUTO [id number] 00:00:00 Test Item Value Reference Range Interpretation [...] NUCLEATED RBCS (test code = 0.00 K/UL 73319) TSH, THIRD [id number] 00:00:00 Test Item Value Reference Range Interpretation Comments TSH, THIRD GENERATION (test code 2.700 UIU/ML = 2821) TSH, THIRD [id number] 00:00:00 Test Item Value Reference Range Interpretation Comments TSH, THIRD GENERATION (test code 2.700 UIU/ML = 2821) TSH, THIRD [id number] 00:00:00 Test Item Value Reference Range Interpretation Comments TSH, THIRD GENERATION (test code 2.700 UIU/ML = 2821) HEMOGLOBIN [id number] 00:00:00 Test Item Value Reference Range Interpretation Comments HEMOGLOBIN A1c (test code = 53007) 6.8 % HEMOGLOBIN [id number] 00:00:00 Test Item Value Reference Range Interpretation Comments HEMOGLOBIN A1c (test code = 19699) 6.8 % HEMOGLOBIN [id number] 00:00:00 Test Item Value Reference Range Interpretation Comments HEMOGLOBIN A1c (test code = 72437) 6.8 % COMPREHENSIVE METABOLIC [id number] 00:00:00 Test Item Value Reference Range Interpretation Comments GLUCOSE (test code = 2217) 169 MG/DL BUN (test code = 2208) 17 MG/DL CREATININE (test code = 2214) 0.86 MG/DL eGFR (2020 CKD-EPI) (test code 76 ML/MIN/1.73 = 03502) CALC BUN/CREAT (test code = 20 RATIO [...] code = 2219) 34 U/L COMPREHENSIVE METABOLIC [id number] 00:00:00 Test Item Value Reference Range Interpretation Comments GLUCOSE (test code = 2217) 169 MG/DL BUN (test code = 2208) 17 MG/DL CREATININE (test code = 2214) 0.86 MG/DL eGFR (2020 CKD-EPI) (test code 76 ML/MIN/1.73 = 44554) CALC BUN/CREAT (test code = 20 RATIO 2235) SODIUM (test code = 2231) 141 MEQ/L POTASSIUM (test code = 2228) 4.3 MEQ/L CHLORIDE (test code = 2215) 99 MEQ/L CARBON DIOXIDE (test code = 25 MEQ/L 220) CALCIUM (test code = 2209) 9.6 MG/DL [...] code = 2219) 34 U/L CBC W/AUTO [id number] 00:00:00 Test Item Value Reference Range Interpretation [...] NUCLEATED RBCS (test code = 0.00 K/UL 36868) CBC W/AUTO [id number] 00:00:00 Test Item Value Reference Range Interpretation [...] NUCLEATED RBCS (test code = 0.00 K/UL 82139) CBC W/AUTO [id number] 00:00:00 Test Item Value Reference Range Interpretation [...] NUCLEATED RBCS (test code = 0.00 K/UL 54611) TSH, THIRD [id number] 00:00:00 Test Item Value Reference Range Interpretation Comments TSH, THIRD GENERATION (test code 2.700 UIU/ML = 2821) TSH, THIRD [id number] 00:00:00 Test Item Value Reference Range Interpretation Comments TSH, THIRD GENERATION (test code 2.700 UIU/ML = 2821) TSH, THIRD [id number] 00:00:00 Test Item Value Reference Range Interpretation Comments TSH, THIRD GENERATION (test code 2.700 UIU/ML = 2821) HEMOGLOBIN [id number] 00:00:00 Test Item Value Reference Range Interpretation Comments HEMOGLOBIN A1c (test code = 11496) 6.8 % HEMOGLOBIN [id number] 00:00:00 Test Item Value Reference Range Interpretation Comments HEMOGLOBIN A1c (test code = 77153) 6.8 % HEMOGLOBIN [id number] 00:00:00 Test Item Value Reference Range Interpretation Comments HEMOGLOBIN A1c (test code = 71852) 6.8 % COMPREHENSIVE METABOLIC [id number] 00:00:00 Test Item Value Reference Range Interpretation Comments GLUCOSE (test code = 2217) 169 MG/DL BUN (test code = 2208) 17 MG/DL CREATININE (test code = 2214) 0.86 MG/DL eGFR (2020 CKD-EPI) (test code 76 ML/MIN/1.73 = 23022) CALC BUN/CREAT (test code = 20 RATIO [...] code = 2219) 34 U/L COMPREHENSIVE METABOLIC [id number] 00:00:00 Test Item Value Reference Range Interpretation Comments GLUCOSE (test code = 2217) 169 MG/DL BUN (test code = 2208) 17 MG/DL CREATININE (test code = 2214) 0.86 MG/DL eGFR (2020 CKD-EPI) (test code 76 ML/MIN/1.73 = 31177) CALC BUN/CREAT (test code = 20 RATIO [...] code = 2219) 34 U/L CBC W/AUTO [id number] 00:00:00 Test Item Value Reference Range Interpretation [...] NUCLEATED RBCS (test code = 0.00 K/UL 73340) CBC W/AUTO [id number] 00:00:00 Test Item Value Reference Range Interpretation [...] NUCLEATED RBCS (test code = 0.00 K/UL 22516) CBC W/AUTO [id number] 00:00:00 Test Item Value Reference Range Interpretation [...] NUCLEATED RBCS (test code = 0.00 K/UL 21380) TSH, THIRD [id number] 00:00:00 Test Item Value Reference Range Interpretation Comments TSH, THIRD GENERATION (test code 2.700 UIU/ML = 2821) TSH, THIRD [id number] 00:00:00 Test Item Value Reference Range Interpretation Comments TSH, THIRD GENERATION (test code 2.700 UIU/ML = 2821) TSH, THIRD [id number] 00:00:00 Test Item Value Reference Range Interpretation Comments TSH, THIRD GENERATION (test code 2.700 UIU/ML = 2821) HEMOGLOBIN [id number] 00:00:00 Test Item Value Reference Range Interpretation Comments HEMOGLOBIN A1c (test code = 86874) 6.8 % HEMOGLOBIN [id number] 00:00:00 Test Item Value Reference Range Interpretation Comments HEMOGLOBIN A1c (test code = 81801) 6.8 % HEMOGLOBIN [id number] 00:00:00 Test Item Value Reference Range Interpretation Comments HEMOGLOBIN A1c (test code = 51813) 6.8 % COMPREHENSIVE METABOLIC [id number] 00:00:00 Test Item Value Reference Range Interpretation Comments GLUCOSE (test code = 2217) 169 MG/DL BUN (test code = 2208) 17 MG/DL CREATININE (test code = 2214) 0.86 MG/DL eGFR (2020 CKD-EPI) (test code 76 ML/MIN/1.73 = 16193) CALC BUN/CREAT (test code = 20 RATIO [...] code = 2219) 34 U/L COMPREHENSIVE METABOLIC [id number] 00:00:00 Test Item Value Reference Range Interpretation Comments GLUCOSE (test code = 2217) 169 MG/DL BUN (test code = 2208) 17 MG/DL CREATININE (test code = 2214) 0.86 MG/DL eGFR (2020 CKD-EPI) (test code 76 ML/MIN/1.73 = 22446) CALC BUN/CREAT (test code = 20 RATIO [...] code = 2219) 34 U/L CBC W/AUTO [id number] 00:00:00 Test Item Value Reference Range Interpretation [...] NUCLEATED RBCS (test code = 0.00 K/UL 76194) CBC W/AUTO [id number] 00:00:00 Test Item Value Reference Range Interpretation [...] NUCLEATED RBCS (test code = 0.00 K/UL 82264) CBC W/AUTO [id number] 00:00:00 Test Item Value Reference Range Interpretation [...] NUCLEATED RBCS (test code = 0.00 K/UL 30639) TSH, THIRD [id number] 00:00:00 Test Item Value Reference Range Interpretation Comments TSH, THIRD GENERATION (test code 2.700 UIU/ML = 2821) TSH, THIRD [id number] 00:00:00 Test Item Value Reference Range Interpretation Comments TSH, THIRD GENERATION (test code 2.700 UIU/ML = 2821) TSH, THIRD [id number] 00:00:00 Test Item Value Reference Range Interpretation Comments TSH, THIRD GENERATION (test code 2.700 UIU/ML = 2821) HEMOGLOBIN [id number] 00:00:00 Test Item Value Reference Range Interpretation Comments HEMOGLOBIN A1c (test code = 97329) 6.8 % HEMOGLOBIN [id number] 00:00:00 Test Item Value Reference Range Interpretation Comments HEMOGLOBIN A1c (test code = 83497) 6.8 % HEMOGLOBIN [id number] 00:00:00 Test Item Value Reference Range Interpretation Comments HEMOGLOBIN A1c (test code = 18243) 6.8 % VITAMIN D, 25 [id number] 06:58:12 Test Item Value Reference Range Interpretation [...] PERFORM ED [facility]CL[facility]ICAL [facility] [place] [place] [address] LABORATORY DIRE CTOR: Radha LOAIZA. IA NUMBER [id number] CAP ACCREDITATION N O. [id number] TSH, THIRD [id number] 06:45:08 Test Item Value Reference Range Interpretation Comments TSH, THIRD GENERATION (test code 1.290 UIU/ML 0.400-4.100 = 282) VITAMIN [id number] 06:45:08 Test Item Value Reference Range Interpretation Comments VITAMIN B-12 (test code = 2840) 647 PG/ML 200-950 COMPREHENSIVE METABOLIC [id number] 05:39:52 Test Item Value Reference Range Interpretation Comments GLUCOSE (test code = 119 MG/DL 70-99 H 2216) BUN (test code = 19 MG/DL 8-23 2207) CREATININE (test 0.98 MG/DL 0.60-1.30 code = 2214) eGFR (2020 CKD-EPI) 65 ML/MIN/1.73 >60 (test code = 21536) CALC BUN/CREAT (test 19 RATIO 6-28 code = 2235) SODIUM (test code = 137 MEQ/L 640-175 4789) POTASSIUM (test code 4.9 MEQ/L 3.5-5.4 = [...] 5-40 H 221) CBC W/AUTO DIFF WITH [id number] 02:09:53 Test Item Value Reference Range Interpretation [...] RBCS 0.00 K/UL 0.00-0.11 (test code = 64432) TSH, THIRD [id number] 00:00:00 Test Item Value Reference Range Interpretation Comments TSH, THIRD GENERATION (test code 1.290 UIU/ML = 2821) TSH, THIRD [id number] 00:00:00 Test Item Value Reference Range Interpretation Comments TSH, THIRD GENERATION (test code 1.290 UIU/ML = 2821) TSH, THIRD [id number] 00:00:00 Test Item Value Reference Range Interpretation Comments TSH, THIRD GENERATION (test code 1.290 UIU/ML = 2821) CBC W/AUTO [id number] 00:00:00 Test Item Value Reference Range Interpretation [...] NUCLEATED RBCS (test code = 0.00 K/UL 43312) CBC W/AUTO [id number] 00:00:00 Test Item Value Reference Range Interpretation [...] NUCLEATED RBCS (test code = 0.00 K/UL 58849) CBC W/AUTO [id number] 00:00:00 Test Item Value Reference Range Interpretation [...] NUCLEATED RBCS (test code = 0.00 K/UL 68691) COMPREHENSIVE METABOLIC [id number] 00:00:00 Test Item Value Reference Range Interpretation Comments GLUCOSE (test code = 2217) 119 MG/DL BUN (test code = 2208) 19 MG/DL CREATININE (test code = 2214) 0.98 MG/DL eGFR (2020 CKD-EPI) (test code 65 ML/MIN/1.73 = 17163) CALC BUN/CREAT (test code = 19 RATIO [...] code = 2219) 48 U/L COMPREHENSIVE METABOLIC [id number] 00:00:00 Test Item Value Reference Range Interpretation Comments GLUCOSE (test code = 2217) 119 MG/DL BUN (test code = 2208) 19 MG/DL CREATININE (test code = 2214) 0.98 MG/DL eGFR (2020 CKD-EPI) (test code 65 ML/MIN/1.73 = 62660) CALC BUN/CREAT (test code = 19 RATIO [...] (test code = 2219) 48 U/L VITAMIN [id number] 00:00:00 Test Item Value Reference Range Interpretation Comments VITAMIN B-12 (test code = 2840) 647 PG/ML VITAMIN [id number] 00:00:00 Test Item Value Reference Range Interpretation Comments VITAMIN B-12 (test code = 2840) 647 PG/ML VITAMIN [id number] 00:00:00 Test Item Value Reference Range Interpretation Comments VITAMIN B-12 (test code = 2840) 647 PG/ML VITAMIN D, 25 [id number] 00:00:00 Test Item Value Reference Range Interpretation Comments VITAMIN D, 25 OH (test code = 4958) 18 NG/ML VITAMIN D, 25 [id number] 00:00:00 Test Item Value Reference Range Interpretation Comments VITAMIN D, 25 OH (test code = 4958) 18 NG/ML TSH, THIRD [id number] 00:00:00 Test Item Value Reference Range Interpretation Comments TSH, THIRD GENERATION (test code 1.290 UIU/ML = 2821) TSH, THIRD [id number] 00:00:00 Test Item Value Reference Range Interpretation Comments TSH, THIRD GENERATION (test code 1.290 UIU/ML = 2821) TSH, THIRD [id number] 00:00:00 Test Item Value Reference Range Interpretation Comments TSH, THIRD GENERATION (test code 1.290 UIU/ML = 2821) CBC W/AUTO [id number] 00:00:00 Test Item Value Reference Range Interpretation [...] NUCLEATED RBCS (test code = 0.00 K/UL 54282) CBC W/AUTO [id number] 00:00:00 Test Item Value Reference Range Interpretation [...] NUCLEATED RBCS (test code = 0.00 K/UL 08398) CBC W/AUTO [id number] 00:00:00 Test Item Value Reference Range Interpretation [...] NUCLEATED RBCS (test code = 0.00 K/UL 57269) COMPREHENSIVE METABOLIC [id number] 00:00:00 Test Item Value Reference Range Interpretation Comments GLUCOSE (test code = 2217) 119 MG/DL BUN (test code = 2208) 19 MG/DL CREATININE (test code = 2214) 0.98 MG/DL eGFR (2020 CKD-EPI) (test code 65 ML/MIN/1.73 = 83142) CALC BUN/CREAT (test code = 19 RATIO [...] code = 2219) 48 U/L COMPREHENSIVE METABOLIC [id number] 00:00:00 Test Item Value Reference Range Interpretation Comments GLUCOSE (test code = 2217) 119 MG/DL BUN (test code = 2208) 19 MG/DL CREATININE (test code = 2214) 0.98 MG/DL eGFR (2020 CKD-EPI) (test code 65 ML/MIN/1.73 = 56294) CALC BUN/CREAT (test code = 19 RATIO [...] (test code = 2219) 48 U/L VITAMIN [id number] 00:00:00 Test Item Value Reference Range Interpretation Comments VITAMIN B-12 (test code = 2840) 647 PG/ML VITAMIN [id number] 00:00:00 Test Item Value Reference Range Interpretation Comments VITAMIN B-12 (test code = 2840) 647 PG/ML VITAMIN [id number] 00:00:00 Test Item Value Reference Range Interpretation Comments VITAMIN B-12 (test code = 2840) 647 PG/ML VITAMIN D, 25 [id number] 00:00:00 Test Item Value Reference Range Interpretation Comments VITAMIN D, 25 OH (test code = 4958) 18 NG/ML VITAMIN D, 25 [id number] 00:00:00 Test Item Value Reference Range Interpretation Comments VITAMIN D, 25 OH (test code = 4958) 18 NG/ML TSH, THIRD [id number] 00:00:00 Test Item Value Reference Range Interpretation Comments TSH, THIRD GENERATION (test code 1.290 UIU/ML = 2821) TSH, THIRD [id number] 00:00:00 Test Item Value Reference Range Interpretation Comments TSH, THIRD GENERATION (test code 1.290 UIU/ML = 2821) TSH, THIRD [id number] 00:00:00 Test Item Value Reference Range Interpretation Comments TSH, THIRD GENERATION (test code 1.290 UIU/ML = 2821) CBC W/AUTO [id number] 00:00:00 Test Item Value Reference Range Interpretation [...] NUCLEATED RBCS (test code = 0.00 K/UL 34236) CBC W/AUTO [id number] 00:00:00 Test Item Value Reference Range Interpretation [...] NUCLEATED RBCS (test code = 0.00 K/UL 34203) CBC W/AUTO [id number] 00:00:00 Test Item Value Reference Range Interpretation [...] NUCLEATED RBCS (test code = 0.00 K/UL 01039) COMPREHENSIVE METABOLIC [id number] 00:00:00 Test Item Value Reference Range Interpretation Comments GLUCOSE (test code = 2217) 119 MG/DL BUN (test code = 2208) 19 MG/DL CREATININE (test code = 2214) 0.98 MG/DL eGFR (2020 CKD-EPI) (test code 65 ML/MIN/1.73 = 39392) CALC BUN/CREAT (test code = 19 RATIO [...] 0) CALC A/G RATIO (test code = 1.4 RATIO 2234) BILIRUBIN, TOTAL (test code = 0.3 MG/DL 2206) ALKALINE PHOSPHATASE (test 79 U/L code = 2204) AST (test code = 2218) 48 U/L ALT (test code = 2219) 48 U/L COMPREHENSIVE METABOLIC [id number] 00:00:00 Test Item Value Reference Range Interpretation Comments GLUCOSE (test code = 2217) 119 MG/DL BUN (test code = 2208) 19 MG/DL CREATININE (test code = 2214) 0.98 MG/DL eGFR (2020 CKD-EPI) (test code 65 ML/MIN/1.73 = 33390) CALC BUN/CREAT (test code = 19 RATIO [...] (test code = 2219) 48 U/L VITAMIN [id number] 00:00:00 Test Item Value Reference Range Interpretation Comments VITAMIN B-12 (test code = 2840) 647 PG/ML VITAMIN [id number] 00:00:00 Test Item Value Reference Range Interpretation Comments VITAMIN B-12 (test code = 2840) 647 PG/ML VITAMIN [id number] 00:00:00 Test Item Value Reference Range Interpretation Comments VITAMIN B-12 (test code = 2840) 647 PG/ML VITAMIN D, 25 [id number] 00:00:00 Test Item Value Reference Range Interpretation Comments VITAMIN D, 25 OH (test code = 4958) 18 NG/ML VITAMIN D, 25 [id number] 00:00:00 Test Item Value Reference Range Interpretation Comments VITAMIN D, 25 OH (test code = 4958) 18 NG/ML TSH, THIRD [id number] 00:00:00 Test Item Value Reference Range Interpretation Comments TSH, THIRD GENERATION (test code 1.290 UIU/ML = 2821) TSH, THIRD [id number] 00:00:00 Test Item Value Reference Range Interpretation Comments TSH, THIRD GENERATION (test code 1.290 UIU/ML = 2821) TSH, THIRD [id number] 00:00:00 Test Item Value Reference Range Interpretation Comments TSH, THIRD GENERATION (test code 1.290 UIU/ML = 2821) CBC W/AUTO [id number] 00:00:00 Test Item Value Reference Range Interpretation [...] NUCLEATED RBCS (test code = 0.00 K/UL 17501) CBC W/AUTO [id number] 00:00:00 Test Item Value Reference Range Interpretation [...] NUCLEATED RBCS (test code = 0.00 K/UL 73099) CBC W/AUTO [id number] 00:00:00 Test Item Value Reference Range Interpretation [...] NUCLEATED RBCS (test code = 0.00 K/UL 31002) COMPREHENSIVE METABOLIC [id number] 00:00:00 Test Item Value Reference Range Interpretation Comments GLUCOSE (test code = 2217) 119 MG/DL BUN (test code = 2208) 19 MG/DL CREATININE (test code = 2214) 0.98 MG/DL eGFR (2020 CKD-EPI) (test code 65 ML/MIN/1.73 = 35653) CALC BUN/CREAT (test code = 19 RATIO [...] code = 2219) 48 U/L COMPREHENSIVE METABOLIC [id number] 00:00:00 Test Item Value Reference Range Interpretation Comments GLUCOSE (test code = 2217) 119 MG/DL BUN (test code = 2208) 19 MG/DL CREATININE (test code = 2214) 0.98 MG/DL eGFR (2020 CKD-EPI) (test code 65 ML/MIN/1.73 = 91949) CALC BUN/CREAT (test code = 19 RATIO [...] (test code = 2219) 48 U/L VITAMIN [id number] 00:00:00 Test Item Value Reference Range Interpretation Comments VITAMIN B-12 (test code = 2840) 647 PG/ML VITAMIN [id number] 00:00:00 Test Item Value Reference Range Interpretation Comments VITAMIN B-12 (test code = 2840) 647 PG/ML VITAMIN [id number] 00:00:00 Test Item Value Reference Range Interpretation Comments VITAMIN B-12 (test code = 2840) 647 PG/ML VITAMIN D, 25 [id number] 00:00:00 Test Item Value Reference Range Interpretation Comments VITAMIN D, 25 OH (test code = 4958) 18 NG/ML VITAMIN D, 25 [id number] 00:00:00 Test Item Value Reference Range Interpretation Comments VITAMIN D, 25 OH (test code = 4958) 18 NG/ML CULTURE, [id number] 12:01:26SPECIMEN NUMBER: [id number] CULTURE, URINE SPECIMEN NUMBER: [id number] SPECIMEN COMMENT: URINE SOURCE:URINE REPORT STATUS: FINAL FINAL REPORT: 10/03/2021 10-50,000 CFU/ML MIXED UROGENITAL SOBEIDA UNLESS OT HERWISE INDICATED, ALL TESTING PERFORMED ATCLINICAL PATHOLOGY [facility] [address] [place] [address] PUBLICATION SPECIALIST: LILLI VELAZQUEZ M.D. CLIA NUMBER [id number] [facility] [place].[id number], [id number] 00:00:00 Test Item Value Reference Range Interpretation Comments CULTURE, URINE (test SPECIMEN NUMBER: code = 27719) [id number] CULTURE, [id number] 00:00:00 Test Item Value Reference Range Interpretation Comments CULTURE, URINE (test SPECIMEN NUMBER: code = 59452) [id number] CULTURE, [id number] 00:00:00 Test Item Value Reference Range Interpretation Comments CULTURE, URINE (test SPECIMEN NUMBER: code = 45857) [id number] CULTURE, [id number] 00:00:00 Test Item Value Reference Range Interpretation Comments CULTURE, URINE (test SPECIMEN NUMBER: code = 09648) [id number] CULTURE, [id number] 00:00:00 Test Item Value Reference Range Interpretation Comments CULTURE, URINE (test SPECIMEN NUMBER: code = 47561) [id number] CULTURE, [id number] 00:00:00 Test Item Value Reference Range Interpretation Comments CULTURE, URINE (test SPECIMEN NUMBER: code = 26708) [id number] CULTURE, [id number] 00:00:00 Test Item Value Reference Range Interpretation Comments CULTURE, URINE (test SPECIMEN NUMBER: code = 22842) [id number] CULTURE, [id number] 00:00:00 Test Item Value Reference Range Interpretation Comments CULTURE, URINE (test SPECIMEN NUMBER: code = 42007) [id number] CULTURE, [id number] 00:00:00 Test Item Value Reference Range Interpretation Comments CULTURE, URINE (test SPECIMEN NUMBER: code = 52973) [id number] CULTURE, [id number] 00:00:00 Test Item Value Reference Range Interpretation Comments CULTURE, URINE (test SPECIMEN NUMBER: code = 71632) [id number] CULTURE, [id number] 00:00:00 Test Item Value Reference Range Interpretation Comments CULTURE, URINE (test SPECIMEN NUMBER: code = 01169) [id number] TSH, THIRD [id number] 06:16:09 Test Item Value Reference Range Interpretation Comments TSH, THIRD <0.010 UIU/ML 0.400-4.100 L UNLESS OTHERW ISE GENERATION (test INDICATED, ALL code = 2821) TESTING PERFORM ED ATCLINICAL PATH [facility], [facility] [address] [place] [id number] [place] [address] DIRECTOR: LILLI VELAZQUEZ M.D. CLIA NUMBER [id number] CAP ACCREDITATION N O. [id number] HEMOGLOBIN [id number] 05:23:24 Test Item Value Reference Range Interpretation Comments HEMOGLOBIN A1c (test 6.7 % 4.2-5.6 H [employer] AN DIABETES code = 63817) ASSOCIATION [employer] FOR HGB A1C: PREDIABETES/INC REASED [...] TESTING OR LABORATORY C ONSULTATION. COMPREHENSIVE METABOLIC [id number] 04:45:06 Test Item Value Reference Range Interpretation Comments GLUCOSE (test code = 266 MG/DL 70-99 H 2216) BUN (test code = 17 MG/DL 8-2207) CREATININE (test 0.92 MG/DL 0.60-1.30 code = 2214) eGFR (2020 CKD-EPI) 70 ML/MIN/1.73 >60 (test code = 73378) CALC BUN/CREAT (test 18 RATIO 6-28 code = 2235) SODIUM (test code = 136 MEQ/L 034-651 3513) POTASSIUM (test code 5.3 MEQ/L 3.5-5.4 = [...] code = 29 U/L 5-40 2218) HEMOGLOBIN [id number] 00:00:00 Test Item Value Reference Range Interpretation Comments HEMOGLOBIN A1c (test code = 06239) 6.7 % HEMOGLOBIN [id number] 00:00:00 Test Item Value Reference Range Interpretation Comments HEMOGLOBIN A1c (test code = 04115) 6.7 % HEMOGLOBIN [id number] 00:00:00 Test Item Value Reference Range Interpretation Comments HEMOGLOBIN A1c (test code = 37000) 6.7 % COMPREHENSIVE METABOLIC [id number] 00:00:00 Test Item Value Reference Range Interpretation Comments GLUCOSE (test code = 2217) 266 MG/DL BUN (test code = 2208) 17 MG/DL CREATININE (test code = 2214) 0.92 MG/DL eGFR (2020 CKD-EPI) (test code 70 ML/MIN/1.73 = 32938) CALC BUN/CREAT (test code = 18 RATIO [...] code = 2219) 29 U/L COMPREHENSIVE METABOLIC [id number] 00:00:00 Test Item Value Reference Range Interpretation Comments GLUCOSE (test code = 2217) 266 MG/DL BUN (test code = 2208) 17 MG/DL CREATININE (test code = 2214) 0.92 MG/DL eGFR (2020 CKD-EPI) (test code 70 ML/MIN/1.73 = 82776) CALC BUN/CREAT (test code = 18 RATIO [...] ALT (test code = 2219) 29 U/L [id number] 00:00:00 Test Item Value Reference Range Interpretation Comments TSH, THIRD GENERATION (test <0.010 UIU/ML code = 2821) [id number] 00:00:00 Test Item Value Reference Range Interpretation Comments TSH, THIRD GENERATION (test <0.010 UIU/ML code = 2821) [id number] 00:00:00 Test Item Value Reference Range Interpretation Comments TSH, THIRD GENERATION (test <0.010 UIU/ML code = 2821) HEMOGLOBIN [id number] 00:00:00 Test Item Value Reference Range Interpretation Comments HEMOGLOBIN A1c (test code = 42111) 6.7 % HEMOGLOBIN [id number] 00:00:00 Test Item Value Reference Range Interpretation Comments HEMOGLOBIN A1c (test code = 24402) 6.7 % HEMOGLOBIN [id number] 00:00:00 Test Item Value Reference Range Interpretation Comments HEMOGLOBIN A1c (test code = 96681) 6.7 % COMPREHENSIVE METABOLIC [id number] 00:00:00 Test Item Value Reference Range Interpretation Comments GLUCOSE (test code = 2217) 266 MG/DL BUN (test code = 2208) 17 MG/DL CREATININE (test code = 2214) 0.92 MG/DL eGFR (2020 CKD-EPI) (test code 70 ML/MIN/1.73 = 27588) CALC BUN/CREAT (test code = 18 RATIO [...] code = 2219) 29 U/L COMPREHENSIVE METABOLIC [id number] 00:00:00 Test Item Value Reference Range Interpretation Comments GLUCOSE (test code = 2217) 266 MG/DL BUN (test code = 2208) 17 MG/DL CREATININE (test code = 2214) 0.92 MG/DL eGFR (2020 CKD-EPI) (test code 70 ML/MIN/1.73 = 92479) CALC BUN/CREAT (test code = 18 RATIO [...] ALT (test code = 2219) 29 U/L [id number] 00:00:00 Test Item Value Reference Range Interpretation Comments TSH, THIRD GENERATION (test <0.010 UIU/ML code = 2821) [id number] 00:00:00 Test Item Value Reference Range Interpretation Comments TSH, THIRD GENERATION (test <0.010 UIU/ML code = 2821) [id number] 00:00:00 Test Item Value Reference Range Interpretation Comments TSH, THIRD GENERATION (test <0.010 UIU/ML code = 2821) HEMOGLOBIN [id number] 00:00:00 Test Item Value Reference Range Interpretation Comments HEMOGLOBIN A1c (test code = 11279) 6.7 % HEMOGLOBIN [id number] 00:00:00 Test Item Value Reference Range Interpretation Comments HEMOGLOBIN A1c (test code = 14665) 6.7 % HEMOGLOBIN [id number] 00:00:00 Test Item Value Reference Range Interpretation Comments HEMOGLOBIN A1c (test code = 02382) 6.7 % COMPREHENSIVE METABOLIC [id number] 00:00:00 Test Item Value Reference Range Interpretation Comments GLUCOSE (test code = 2217) 266 MG/DL BUN (test code = 2208) 17 MG/DL CREATININE (test code = 2214) 0.92 MG/DL eGFR (2020 CKD-EPI) (test code 70 ML/MIN/1.73 = 04184) CALC BUN/CREAT (test code = 18 RATIO [...] code = 2219) 29 U/L COMPREHENSIVE METABOLIC [id number] 00:00:00 Test Item Value Reference Range Interpretation Comments GLUCOSE (test code = 2217) 266 MG/DL BUN (test code = 2208) 17 MG/DL CREATININE (test code = 2214) 0.92 MG/DL eGFR (2020 CKD-EPI) (test code 70 ML/MIN/1.73 = 88926) CALC BUN/CREAT (test code = 18 RATIO [...] ALT (test code = 2219) 29 U/L [id number] 00:00:00 Test Item Value Reference Range Interpretation Comments TSH, THIRD GENERATION (test <0.010 UIU/ML code = 2821) [id number] 00:00:00 Test Item Value Reference Range Interpretation Comments TSH, THIRD GENERATION (test <0.010 UIU/ML code = 2821) [id number] 00:00:00 Test Item Value Reference Range Interpretation Comments TSH, THIRD GENERATION (test <0.010 UIU/ML code = 2821) HEMOGLOBIN [id number] 00:00:00 Test Item Value Reference Range Interpretation Comments HEMOGLOBIN A1c (test code = 49827) 6.7 % HEMOGLOBIN [id number] 00:00:00 Test Item Value Reference Range Interpretation Comments HEMOGLOBIN A1c (test code = 61692) 6.7 % HEMOGLOBIN [id number] 00:00:00 Test Item Value Reference Range Interpretation Comments HEMOGLOBIN A1c (test code = 39976) 6.7 % COMPREHENSIVE METABOLIC [id number] 00:00:00 Test Item Value Reference Range Interpretation Comments GLUCOSE (test code = 2217) 266 MG/DL BUN (test code = 2208) 17 MG/DL CREATININE (test code = 2214) 0.92 MG/DL eGFR (2020 CKD-EPI) (test code 70 ML/MIN/1.73 = 77832) CALC BUN/CREAT (test code = 18 RATIO [...] code = 2219) 29 U/L COMPREHENSIVE METABOLIC [id number] 00:00:00 Test Item Value Reference Range Interpretation Comments GLUCOSE (test code = 2217) 266 MG/DL BUN (test code = 2208) 17 MG/DL CREATININE (test code = 2214) 0.92 MG/DL eGFR (2020 CKD-EPI) (test code 70 ML/MIN/1.73 = 69488) CALC BUN/CREAT (test code = 18 RATIO [...] ALT (test code = 2219) 29 U/L [id number] 00:00:00 Test Item Value Reference Range Interpretation Comments TSH, THIRD GENERATION (test <0.010 UIU/ML code = 2821) [id number] 00:00:00 Test Item Value Reference Range Interpretation Comments TSH, THIRD GENERATION (test <0.010 UIU/ML code = 2821) [id number] 00:00:00 Test Item Value Reference Range Interpretation Comments TSH, THIRD GENERATION (test <0.010 UIU/ML code = 2821) HEMOGLOBIN [id number] 00:00:00 Test Item Value Reference Range Interpretation Comments HEMOGLOBIN A1c (test code = 88378) 6.7 % HEMOGLOBIN [id number] 00:00:00 Test Item Value Reference Range Interpretation Comments HEMOGLOBIN A1c (test code = 14124) 6.7 % COMPREHENSIVE METABOLIC [id number] 00:00:00 Test Item Value Reference Range Interpretation Comments GLUCOSE (test code = 2217) 266 MG/DL BUN (test code = 2208) 17 MG/DL CREATININE (test code = 2214) 0.92 MG/DL eGFR (2020 CKD-EPI) (test code 70 ML/MIN/1.73 = 22869) CALC BUN/CREAT (test code = 18 RATIO [...] ALT (test code = 2219) 29 U/L [id number] 00:00:00 Test Item Value Reference Range Interpretation Comments TSH, THIRD GENERATION (test <0.010 UIU/ML code = 2821) [id number] 00:00:00 Test Item Value Reference Range Interpretation Comments TSH, THIRD GENERATION (test <0.010 UIU/ML code = 2821) HEMOGLOBIN [id number] 00:00:00 Test Item Value Reference Range Interpretation Comments HEMOGLOBIN A1c (test code = 16407) 6.7 % HEMOGLOBIN [id number] 00:00:00 Test Item Value Reference Range Interpretation Comments HEMOGLOBIN A1c (test code = 43568) 6.7 % HEMOGLOBIN [id number] 00:00:00 Test Item Value Reference Range Interpretation Comments HEMOGLOBIN A1c (test code = 71687) 6.7 % COMPREHENSIVE METABOLIC [id number] 00:00:00 Test Item Value Reference Range Interpretation Comments GLUCOSE (test code = 2217) 266 MG/DL BUN (test code = 2208) 17 MG/DL CREATININE (test code = 2214) 0.92 MG/DL eGFR (2020 CKD-EPI) (test code 70 ML/MIN/1.73 = 60261) CALC BUN/CREAT (test code = 18 RATIO [...] code = 2219) 29 U/L COMPREHENSIVE METABOLIC [id number] 00:00:00 Test Item Value Reference Range Interpretation Comments GLUCOSE (test code = 2217) 266 MG/DL BUN (test code = 2208) 17 MG/DL CREATININE (test code = 2214) 0.92 MG/DL eGFR (2020 CKD-EPI) (test code 70 ML/MIN/1.73 = 20615) CALC BUN/CREAT (test code = 18 RATIO [...] ALT (test code = 2219) 29 U/L [id number] 00:00:00 Test Item Value Reference Range Interpretation Comments TSH, THIRD GENERATION (test <0.010 UIU/ML code = 2821) [id number] 00:00:00 Test Item Value Reference Range Interpretation Comments TSH, THIRD GENERATION (test <0.010 UIU/ML code = 2821) [id number] 00:00:00 Test Item Value Reference Range Interpretation Comments TSH, THIRD GENERATION (test <0.010 UIU/ML code = 2821) TSH, THIRD [id number] 06:18:54 Test Item Value Reference Range Interpretation Comments TSH, THIRD GENERATION (test code 0.190 UIU/ML 0.400-4.100 L = 2821) HEMOGLOBIN [id number] 03:11:56 Test Item Value Reference Range Interpretation Comments HEMOGLOBIN A1c (test 8.4 % 4.2-5.6 H [employer] DIABETES code = 15572) ASSOCIATION [employer] FOR HGB A1C: PREDIABETES/INC REASED [...] TESTING OR LABORATORY C ONSULTATION. COMPREHENSIVE METABOLIC [id number] 03:11:06 Test Item Value Reference Range Interpretation Comments GLUCOSE (test code = 141 MG/DL 70-99 H 2216) BUN (test code = 31 MG/DL 8-23 H 2207) CREATININE (test 1.07 MG/DL 0.60-1.30 code = 2214) eGFR (2020 CKD-EPI) 59 ML/MIN/1.73 >60 L (test code = 09827) CALC BUN/CREAT (test 29 RATIO 6-28 H code = 2235) SODIUM (test code = 141 MEQ/L 337-099 2617) POTASSIUM (test code 4.7 MEQ/L 3.5-5.4 = [...] = 41 U/L 5-40 H 2218) LIPID [id number] 03:11:06 Test Item Value Reference Range Interpretation [...] MOREINFORMATION , SEE CLIENT ANNOUNCE MENT AT [email or web address] RISK RATIO LDL/HDL 1.28 RATIO <3.22 (test code = 2238) IRON, [id number] 03:11:06 Test Item Value Reference Range Interpretation Comments IRON, SERUM (test 59 UG/DL 37-145 UNLESS OT HERWISE code = 2222) INDICATED, ALL TESTING PERFORMED [facility] [employer] [address] [place] [id number] [address] SHARP DIRECTOR: LILLI VELAZQUEZ M.D. CLIA NUMBER [id number] CAP ACCREDITATION N O. [id number] HEMOGLOBIN [id number] 00:00:00 Test Item Value Reference Range Interpretation Comments HEMOGLOBIN A1c (test code = 81319) 8.4 % HEMOGLOBIN [id number] 00:00:00 Test Item Value Reference Range Interpretation Comments HEMOGLOBIN A1c (test code = 99757) 8.4 % HEMOGLOBIN [id number] 00:00:00 Test Item Value Reference Range Interpretation Comments HEMOGLOBIN A1c (test code = 50226) 8.4 % COMPREHENSIVE METABOLIC [id number] 00:00:00 Test Item Value Reference Range Interpretation Comments GLUCOSE (test code = 2217) 141 MG/DL BUN (test code = 2208) 31 MG/DL CREATININE (test code = 2214) 1.07 MG/DL eGFR (2020 CKD-EPI) (test code 59 ML/MIN/1.73 = 47812) CALC BUN/CREAT (test code = 29 RATIO [...] code = 2219) 41 U/L COMPREHENSIVE METABOLIC [id number] 00:00:00 Test Item Value Reference Range Interpretation Comments GLUCOSE (test code = 2217) 141 MG/DL BUN (test code = 2208) 31 MG/DL CREATININE (test code = 2214) 1.07 MG/DL eGFR (2020 CKD-EPI) (test code 59 ML/MIN/1.73 = 97675) CALC BUN/CREAT (test code = 29 RATIO [...] (test code = 2219) 41 U/L LIPID [id number] 00:00:00 Test Item Value Reference Range Interpretation Comments CHOLESTEROL (test code = 2210) 113 MG/DL TRIGLYCERIDES (test code = 2232) 165 MG/DL HDL CHOLESTEROL (test code = 2220) 39 MG/DL CALC LDL CHOL (test code = 2237) 50 MG/DL RISK RATIO LDL/HDL (test code = 1.28 RATIO 2238) LIPID [id number] 00:00:00 Test Item Value Reference Range Interpretation Comments CHOLESTEROL (test code = 2210) 113 MG/DL TRIGLYCERIDES (test code = 2232) 165 MG/DL HDL CHOLESTEROL (test code = 2220) 39 MG/DL CALC LDL CHOL (test code = 2237) 50 MG/DL RISK RATIO LDL/HDL (test code = 1.28 RATIO 2238) [id number] 00:00:00 Test Item Value Reference Range Interpretation Comments TSH, THIRD GENERATION (test code 0.190 UIU/ML = 2821) [id number] 00:00:00 Test Item Value Reference Range Interpretation Comments TSH, THIRD GENERATION (test code 0.190 UIU/ML = 2821) [id number] 00:00:00 Test Item Value Reference Range Interpretation Comments TSH, THIRD GENERATION (test code 0.190 UIU/ML = 2821) IRON, [id number] 00:00:00 Test Item Value Reference Range Interpretation Comments IRON, SERUM (test code = 2222) 59 UG/DL IRON, [id number] 00:00:00 Test Item Value Reference Range Interpretation Comments IRON, SERUM (test code = 2222) 59 UG/DL HEMOGLOBIN [id number] 00:00:00 Test Item Value Reference Range Interpretation Comments HEMOGLOBIN A1c (test code = 48245) 8.4 % HEMOGLOBIN [id number] 00:00:00 Test Item Value Reference Range Interpretation Comments HEMOGLOBIN A1c (test code = 62411) 8.4 % HEMOGLOBIN [id number] 00:00:00 Test Item Value Reference Range Interpretation Comments HEMOGLOBIN A1c (test code = 17299) 8.4 % HEMOGLOBIN [id number] 00:00:00 Test Item Value Reference Range Interpretation Comments HEMOGLOBIN A1c (test code = 77378) 8.4 % COMPREHENSIVE METABOLIC [id number] 00:00:00 Test Item Value Reference Range Interpretation Comments GLUCOSE (test code = 2217) 141 MG/DL BUN (test code = 2208) 31 MG/DL CREATININE (test code = 2214) 1.07 MG/DL eGFR (2020 CKD-EPI) (test code 59 ML/MIN/1.73 = 96899) CALC BUN/CREAT (test code = 29 RATIO [...] code = 2219) 41 U/L COMPREHENSIVE METABOLIC [id number] 00:00:00 Test Item Value Reference Range Interpretation Comments GLUCOSE (test code = 2217) 141 MG/DL BUN (test code = 2208) 31 MG/DL CREATININE (test code = 2214) 1.07 MG/DL eGFR (2020 CKD-EPI) (test code 59 ML/MIN/1.73 = 20031) CALC BUN/CREAT (test code = 29 RATIO [...] (test code = 2219) 41 U/L HEMOGLOBIN [id number] 00:00:00 Test Item Value Reference Range Interpretation Comments HEMOGLOBIN A1c (test code = 79955) 8.4 % LIPID [id number] 00:00:00 Test Item Value Reference Range Interpretation Comments CHOLESTEROL (test code = 2210) 113 MG/DL TRIGLYCERIDES (test code = 2232) 165 MG/DL HDL CHOLESTEROL (test code = 2220) 39 MG/DL CALC LDL CHOL (test code = 2237) 50 MG/DL RISK RATIO LDL/HDL (test code = 1.28 RATIO 2238) LIPID [id number] 00:00:00 Test Item Value Reference Range Interpretation Comments CHOLESTEROL (test code = 2210) 113 MG/DL TRIGLYCERIDES (test code = 2232) 165 MG/DL HDL CHOLESTEROL (test code = 2220) 39 MG/DL CALC LDL CHOL (test code = 2237) 50 MG/DL RISK RATIO LDL/HDL (test code = 1.28 RATIO 2238) COMPREHENSIVE METABOLIC [id number] 00:00:00 Test Item Value Reference Range Interpretation Comments GLUCOSE (test code = 2217) 141 MG/DL BUN (test code = 2208) 31 MG/DL CREATININE (test code = 2214) 1.07 MG/DL eGFR (2020 CKD-EPI) (test code 59 ML/MIN/1.73 = 35005) CALC BUN/CREAT (test code = 29 RATIO [...] ALT (test code = 2219) 41 U/L [id number] 00:00:00 Test Item Value Reference Range Interpretation Comments TSH, THIRD GENERATION (test code 0.190 UIU/ML = 2821) [id number] 00:00:00 Test Item Value Reference Range Interpretation Comments TSH, THIRD GENERATION (test code 0.190 UIU/ML = 2821) [id number] 00:00:00 Test Item Value Reference Range Interpretation Comments TSH, THIRD GENERATION (test code 0.190 UIU/ML = 2821) IRON, [id number] 00:00:00 Test Item Value Reference Range Interpretation Comments IRON, SERUM (test code = 2222) 59 UG/DL IRON, [id number] 00:00:00 Test Item Value Reference Range Interpretation Comments IRON, SERUM (test code = 2222) 59 UG/DL LIPID [id number] 00:00:00 Test Item Value Reference Range Interpretation Comments CHOLESTEROL (test code = 2210) 113 MG/DL TRIGLYCERIDES (test code = 2232) 165 MG/DL HDL CHOLESTEROL (test code = 2220) 39 MG/DL CALC LDL CHOL (test code = 2237) 50 MG/DL RISK RATIO LDL/HDL (test code = 1.28 RATIO 2238) [id number] 00:00:00 Test Item Value Reference Range Interpretation Comments TSH, THIRD GENERATION (test code 0.190 UIU/ML = 2821) [id number] 00:00:00 Test Item Value Reference Range Interpretation Comments TSH, THIRD GENERATION (test code 0.190 UIU/ML = 2821) IRON, [id number] 00:00:00 Test Item Value Reference Range Interpretation Comments IRON, SERUM (test code = 2222) 59 UG/DL HEMOGLOBIN [id number] 00:00:00 Test Item Value Reference Range Interpretation Comments HEMOGLOBIN A1c (test code = 69840) 8.4 % HEMOGLOBIN [id number] 00:00:00 Test Item Value Reference Range Interpretation Comments HEMOGLOBIN A1c (test code = 83758) 8.4 % HEMOGLOBIN [id number] 00:00:00 Test Item Value Reference Range Interpretation Comments HEMOGLOBIN A1c (test code = 71254) 8.4 % COMPREHENSIVE METABOLIC [id number] 00:00:00 Test Item Value Reference Range Interpretation Comments GLUCOSE (test code = 2217) 141 MG/DL BUN (test code = 2208) 31 MG/DL CREATININE (test code = 2214) 1.07 MG/DL eGFR (2020 CKD-EPI) (test code 59 ML/MIN/1.73 = 79183) CALC BUN/CREAT (test code = 29 RATIO [...] code = 2219) 41 U/L COMPREHENSIVE METABOLIC [id number] 00:00:00 Test Item Value Reference Range Interpretation Comments GLUCOSE (test code = 2217) 141 MG/DL BUN (test code = 2208) 31 MG/DL CREATININE (test code = 2214) 1.07 MG/DL eGFR (2020 CKD-EPI) (test code 59 ML/MIN/1.73 = 82281) CALC BUN/CREAT (test code = 29 RATIO [...] (test code = 2219) 41 U/L LIPID [id number] 00:00:00 Test Item Value Reference Range Interpretation Comments CHOLESTEROL (test code = 2210) 113 MG/DL TRIGLYCERIDES (test code = 2232) 165 MG/DL HDL CHOLESTEROL (test code = 2220) 39 MG/DL CALC LDL CHOL (test code = 2237) 50 MG/DL RISK RATIO LDL/HDL (test code = 1.28 RATIO 2238) LIPID [id number] 00:00:00 Test Item Value Reference Range Interpretation Comments CHOLESTEROL (test code = 2210) 113 MG/DL TRIGLYCERIDES (test code = 2232) 165 MG/DL HDL CHOLESTEROL (test code = 2220) 39 MG/DL CALC LDL CHOL (test code = 2237) 50 MG/DL RISK RATIO LDL/HDL (test code = 1.28 RATIO 2238) [id number] 00:00:00 Test Item Value Reference Range Interpretation Comments TSH, THIRD GENERATION (test code 0.190 UIU/ML = 2821) [id number] 00:00:00 Test Item Value Reference Range Interpretation Comments TSH, THIRD GENERATION (test code 0.190 UIU/ML = 2821) [id number] 00:00:00 Test Item Value Reference Range Interpretation Comments TSH, THIRD GENERATION (test code 0.190 UIU/ML = 2821) IRON, [id number] 00:00:00 Test Item Value Reference Range Interpretation Comments IRON, SERUM (test code = 2222) 59 UG/DL IRON, [id number] 00:00:00 Test Item Value Reference Range Interpretation Comments IRON, SERUM (test code = 2222) 59 UG/DL HEMOGLOBIN [id number] 00:00:00 Test Item Value Reference Range Interpretation Comments HEMOGLOBIN A1c (test code = 72260) 8.4 % HEMOGLOBIN [id number] 00:00:00 Test Item Value Reference Range Interpretation Comments HEMOGLOBIN A1c (test code = 20484) 8.4 % HEMOGLOBIN [id number] 00:00:00 Test Item Value Reference Range Interpretation Comments HEMOGLOBIN A1c (test code = 32556) 8.4 % COMPREHENSIVE METABOLIC [id number] 00:00:00 Test Item Value Reference Range Interpretation Comments GLUCOSE (test code = 2217) 141 MG/DL BUN (test code = 2208) 31 MG/DL CREATININE (test code = 2214) 1.07 MG/DL eGFR (2020 CKD-EPI) (test code 59 ML/MIN/1.73 = 86452) CALC BUN/CREAT (test code = 29 RATIO [...] code = 2219) 41 U/L COMPREHENSIVE METABOLIC [id number] 00:00:00 Test Item Value Reference Range Interpretation Comments GLUCOSE (test code = 2217) 141 MG/DL BUN (test code = 2208) 31 MG/DL CREATININE (test code = 2214) 1.07 MG/DL eGFR (2020 CKD-EPI) (test code 59 ML/MIN/1.73 = 52944) CALC BUN/CREAT (test code = 29 RATIO [...] (test code = 2219) 41 U/L LIPID [id number] 00:00:00 Test Item Value Reference Range Interpretation Comments CHOLESTEROL (test code = 2210) 113 MG/DL TRIGLYCERIDES (test code = 2232) 165 MG/DL HDL CHOLESTEROL (test code = 2220) 39 MG/DL CALC LDL CHOL (test code = 2237) 50 MG/DL RISK RATIO LDL/HDL (test code = 1.28 RATIO 2238) LIPID [id number] 00:00:00 Test Item Value Reference Range Interpretation Comments CHOLESTEROL (test code = 2210) 113 MG/DL TRIGLYCERIDES (test code = 2232) 165 MG/DL HDL CHOLESTEROL (test code = 2220) 39 MG/DL CALC LDL CHOL (test code = 2237) 50 MG/DL RISK RATIO LDL/HDL (test code = 1.28 RATIO 2238) [id number] 00:00:00 Test Item Value Reference Range Interpretation Comments TSH, THIRD GENERATION (test code 0.190 UIU/ML = 2821) [id number] 00:00:00 Test Item Value Reference Range Interpretation Comments TSH, THIRD GENERATION (test code 0.190 UIU/ML = 2821) [id number] 00:00:00 Test Item Value Reference Range Interpretation Comments TSH, THIRD GENERATION (test code 0.190 UIU/ML = 2821) IRON, [id number] 00:00:00 Test Item Value Reference Range Interpretation Comments IRON, SERUM (test code = 2222) 59 UG/DL IRON, [id number] 00:00:00 Test Item Value Reference Range Interpretation Comments IRON, SERUM (test code = 2222) 59 UG/DL HEMOGLOBIN [id number] 00:00:00 Test Item Value Reference Range Interpretation Comments HEMOGLOBIN A1c (test code = 55848) 8.4 % HEMOGLOBIN [id number] 00:00:00 Test Item Value Reference Range Interpretation Comments HEMOGLOBIN A1c (test code = 85955) 8.4 % COMPREHENSIVE METABOLIC [id number] 00:00:00 Test Item Value Reference Range Interpretation Comments GLUCOSE (test code = 2217) 141 MG/DL BUN (test code = 2208) 31 MG/DL CREATININE (test code = 2214) 1.07 MG/DL eGFR (2020 CKD-EPI) (test code 59 ML/MIN/1.73 = 66254) CALC BUN/CREAT (test code = 29 RATIO [...] (test code = 2219) 41 U/L LIPID [id number] 00:00:00 Test Item Value Reference Range Interpretation Comments CHOLESTEROL (test code = 2210) 113 MG/DL TRIGLYCERIDES (test code = 2232) 165 MG/DL HDL CHOLESTEROL (test code = 2220) 39 MG/DL CALC LDL CHOL (test code = 2237) 50 MG/DL RISK RATIO LDL/HDL (test code = 1.28 RATIO 2238) [id number] 00:00:00 Test Item Value Reference Range Interpretation Comments TSH, THIRD GENERATION (test code 0.190 UIU/ML = 2821) [id number] 00:00:00 Test Item Value Reference Range Interpretation Comments TSH, THIRD GENERATION (test code 0.190 UIU/ML = 2821) IRON, [id number] 00:00:00 Test Item Value Reference Range Interpretation Comments IRON, SERUM (test code = 2222) 59 UG/DL HEMOGLOBIN [id number] 00:00:00 Test Item Value Reference Range Interpretation Comments HEMOGLOBIN A1c (test code = 04279) 8.4 % HEMOGLOBIN [id number] 00:00:00 Test Item Value Reference Range Interpretation Comments HEMOGLOBIN A1c (test code = 73912) 8.4 % HEMOGLOBIN [id number] 00:00:00 Test Item Value Reference Range Interpretation Comments HEMOGLOBIN A1c (test code = 50389) 8.4 % COMPREHENSIVE METABOLIC [id number] 00:00:00 Test Item Value Reference Range Interpretation Comments GLUCOSE (test code = 2217) 141 MG/DL BUN (test code = 2208) 31 MG/DL CREATININE (test code = 2214) 1.07 MG/DL eGFR (2020 CKD-EPI) (test code 59 ML/MIN/1.73 = 01401) CALC BUN/CREAT (test code = 29 RATIO 2234) SODIUM (test code = 2231) 141 MEQ/L [...] code = 2219) 41 U/L COMPREHENSIVE METABOLIC [id number] 00:00:00 Test Item Value Reference Range Interpretation Comments GLUCOSE (test code = 2217) 141 MG/DL BUN (test code = 2208) 31 MG/DL CREATININE (test code = 2214) 1.07 MG/DL eGFR (2020 CKD-EPI) (test code 59 ML/MIN/1.73 = 10302) CALC BUN/CREAT (test code = 29 RATIO [...] (test code = 2219) 41 U/L LIPID [id number] 00:00:00 Test Item Value Reference Range Interpretation Comments CHOLESTEROL (test code = 2210) 113 MG/DL TRIGLYCERIDES (test code = 2232) 165 MG/DL HDL CHOLESTEROL (test code = 2220) 39 MG/DL CALC LDL CHOL (test code = 2237) 50 MG/DL RISK RATIO LDL/HDL (test code = 1.28 RATIO 2238) LIPID [id number] 00:00:00 Test Item Value Reference Range Interpretation Comments CHOLESTEROL (test code = 2210) 113 MG/DL TRIGLYCERIDES (test code = 2232) 165 MG/DL HDL CHOLESTEROL (test code = 2220) 39 MG/DL CALC LDL CHOL (test code = 2237) 50 MG/DL RISK RATIO LDL/HDL (test code = 1.28 RATIO 2238) [id number] 00:00:00 Test Item Value Reference Range Interpretation Comments TSH, THIRD GENERATION (test code 0.190 UIU/ML = 2821) [id number] 00:00:00 Test Item Value Reference Range Interpretation Comments TSH, THIRD GENERATION (test code 0.190 UIU/ML = 2821) [id number] 00:00:00 Test Item Value Reference Range Interpretation Comments TSH, THIRD GENERATION (test code 0.190 UIU/ML = 2821) IRON, [id number] 00:00:00 Test Item Value Reference Range Interpretation Comments IRON, SERUM (test code = 2222) 59 UG/DL IRON, [id number] 00:00:00 Test Item Value Reference Range Interpretation Comments IRON, SERUM (test code = 2222) 59 UG/DL ALBUMIN/CREATININE RATIO, URINE, [id number] 05:57:19 Test Item Value Reference Range Interpretation Comments CREATININE, URINE, 212.0 MG/DL NOT ESTAB CONC. (test code = 2072) ALBUMIN, URINE, 16.0 MG/DL Note: Test name is RANDOM (test code changed to Urine Albumin = 04165) from [employer] in in accordance with ADA and NKF Guidelines, and Albumin/Creatin ine ratio reference inter jamshid reflects those Guidelines. Jameel lytic methodology is unchanged. No r eference interval for Ra ndom Urine Albumin i s available. CALC 75 MG/G <30 H UNLESS OTHERWI SE ALBUMIN/CREAT, RND INDICATED , ALL TESTING (test code = PERFORMED ATCLI NICAL 31148) [facility]. [address] [place] [address] 4 LABORATORY DIRE CTOR: LILLI SIERRA M.D. CLIA NUMBER [id number] [place] [id number] HEMOGLOBIN [id number] 04:12:15 Test Item Value Reference Range Interpretation Comments HEMOGLOBIN A1c (test 9.1 % 4.2-5.6 H AMERIC AN DIABETES code = 36717) ASSOCIATION IDELINES FOR HGB A1C: PREDIABETES/INC REASED [...] ATE TESTING OR LABORATORY C ONSULTATION. HEMOGLOBIN [id number] 00:00:00 Test Item Value Reference Range Interpretation Comments HEMOGLOBIN A1c (test code = 38264) 9.1 % HEMOGLOBIN [id number] 00:00:00 Test Item Value Reference Range Interpretation Comments HEMOGLOBIN A1c (test code = 34363) 9.1 % HEMOGLOBIN [id number] 00:00:00 Test Item Value Reference Range Interpretation Comments HEMOGLOBIN A1c (test code = 34918) 9.1 % MICROALBUMIN/CREATININE, RANDOM AND [id number] 00:00:00 Test Item Value Reference Range Interpretation Comments CREATININE, URINE, CONC. (test 212.0 MG/DL code = 2072) ALBUMIN, URINE, RANDOM (test code 16.0 MG/DL = 78642) CALC ALBUMIN/CREAT, RND (test 75 MG/G code = 21337) MICROALBUMIN/CREATININE, RANDOM AND [id number] 00:00:00 Test Item Value Reference Range Interpretation Comments CREATININE, URINE, CONC. (test 212.0 MG/DL code = 2072) ALBUMIN, URINE, RANDOM (test code 16.0 MG/DL = 80176) CALC ALBUMIN/CREAT, RND (test 75 MG/G code = 49914) HEMOGLOBIN [id number] 00:00:00 Test Item Value Reference Range Interpretation Comments HEMOGLOBIN A1c (test code = 50436) 9.1 % HEMOGLOBIN [id number] 00:00:00 Test Item Value Reference Range Interpretation Comments HEMOGLOBIN A1c (test code = 60771) 9.1 % HEMOGLOBIN [id number] 00:00:00 Test Item Value Reference Range Interpretation Comments HEMOGLOBIN A1c (test code = 29604) 9.1 % HEMOGLOBIN [id number] 00:00:00 Test Item Value Reference Range Interpretation Comments HEMOGLOBIN A1c (test code = 46293) 9.1 % HEMOGLOBIN [id number] 00:00:00 Test Item Value Reference Range Interpretation Comments HEMOGLOBIN A1c (test code = 74761) 9.1 % MICROALBUMIN/CREATININE, RANDOM AND [id number] 00:00:00 Test Item Value Reference Range Interpretation Comments CREATININE, URINE, CONC. (test 212.0 MG/DL code = 2072) ALBUMIN, URINE, RANDOM (test code 16.0 MG/DL = 15355) CALC ALBUMIN/CREAT, RND (test 75 MG/G code = 21621) MICROALBUMIN/CREATININE, RANDOM AND [id number] 00:00:00 Test Item Value Reference Range Interpretation Comments CREATININE, URINE, CONC. (test 212.0 MG/DL code = 2072) ALBUMIN, URINE, RANDOM (test code 16.0 MG/DL = 21474) CALC ALBUMIN/CREAT, RND (test 75 MG/G code = 69147) MICROALBUMIN/CREATININE, RANDOM AND [id number] 00:00:00 Test Item Value Reference Range Interpretation Comments CREATININE, URINE, CONC. (test 212.0 MG/DL code = 2072) ALBUMIN, URINE, RANDOM (test code 16.0 MG/DL = 55557) CALC ALBUMIN/CREAT, RND (test 75 MG/G code = 55215) HEMOGLOBIN [id number] 00:00:00 Test Item Value Reference Range Interpretation Comments HEMOGLOBIN A1c (test code = 29592) 9.1 % HEMOGLOBIN [id number] 00:00:00 Test Item Value Reference Range Interpretation Comments HEMOGLOBIN A1c (test code = 74378) 9.1 % HEMOGLOBIN [id number] 00:00:00 Test Item Value Reference Range Interpretation Comments HEMOGLOBIN A1c (test code = 74868) 9.1 % MICROALBUMIN/CREATININE, RANDOM AND [id number] 00:00:00 Test Item Value Reference Range Interpretation Comments CREATININE, URINE, CONC. (test 212.0 MG/DL code = 2072) ALBUMIN, URINE, RANDOM (test code 16.0 MG/DL = 87881) CALC ALBUMIN/CREAT, RND (test 75 MG/G code = 82028) MICROALBUMIN/CREATININE, RANDOM AND [id number] 00:00:00 Test Item Value Reference Range Interpretation Comments CREATININE, URINE, CONC. (test 212.0 MG/DL code = 2072) ALBUMIN, URINE, RANDOM (test code 16.0 MG/DL = 61295) CALC ALBUMIN/CREAT, RND (test 75 MG/G code = 09329) HEMOGLOBIN [id number] 00:00:00 Test Item Value Reference Range Interpretation Comments HEMOGLOBIN A1c (test code = 24998) 9.1 % HEMOGLOBIN [id number] 00:00:00 Test Item Value Reference Range Interpretation Comments HEMOGLOBIN A1c (test code = 24945) 9.1 % HEMOGLOBIN [id number] 00:00:00 Test Item Value Reference Range Interpretation Comments HEMOGLOBIN A1c (test code = 79088) 9.1 % MICROALBUMIN/CREATININE, RANDOM AND [id number] 00:00:00 Test Item Value Reference Range Interpretation Comments CREATININE, URINE, CONC. (test 212.0 MG/DL code = 2072) ALBUMIN, URINE, RANDOM (test code 16.0 MG/DL = 26505) CALC ALBUMIN/CREAT, RND (test 75 MG/G code = 60287) MICROALBUMIN/CREATININE, RANDOM AND [id number] 00:00:00 Test Item Value Reference Range Interpretation Comments CREATININE, URINE, CONC. (test 212.0 MG/DL code = 2072) ALBUMIN, URINE, RANDOM (test code 16.0 MG/DL = 53801) CALC ALBUMIN/CREAT, RND (test 75 MG/G code = 77897) HEMOGLOBIN [id number] 00:00:00 Test Item Value Reference Range Interpretation Comments HEMOGLOBIN A1c (test code = 63376) 9.1 % HEMOGLOBIN [id number] 00:00:00 Test Item Value Reference Range Interpretation Comments HEMOGLOBIN A1c (test code = 98559) 9.1 % MICROALBUMIN/CREATININE, RANDOM AND [id number] 00:00:00 Test Item Value Reference Range Interpretation Comments CREATININE, URINE, CONC. (test 212.0 MG/DL code = 2072) ALBUMIN, URINE, RANDOM (test code 16.0 MG/DL = 03027) CALC ALBUMIN/CREAT, RND (test 75 MG/G code = 73651) HEMOGLOBIN [id number] 00:00:00 Test Item Value Reference Range Interpretation Comments HEMOGLOBIN A1c (test code = 76517) 9.1 % HEMOGLOBIN [id number] 00:00:00 Test Item Value Reference Range Interpretation Comments HEMOGLOBIN A1c (test code = 66325) 9.1 % HEMOGLOBIN [id number] 00:00:00 Test Item Value Reference Range Interpretation Comments HEMOGLOBIN A1c (test code = 52913) 9.1 % MICROALBUMIN/CREATININE, RANDOM AND [id number] 00:00:00 Test Item Value Reference Range Interpretation Comments CREATININE, URINE, CONC. (test 212.0 MG/DL code = 2072) ALBUMIN, URINE, RANDOM (test code 16.0 MG/DL = 91374) CALC ALBUMIN/CREAT, RND (test 75 MG/G code = 44435) MICROALBUMIN/CREATININE, RANDOM AND [id number] 00:00:00 Test Item Value Reference Range Interpretation Comments CREATININE, URINE, CONC. (test 212.0 MG/DL code = 2072) ALBUMIN, URINE, RANDOM (test code 16.0 MG/DL = 85364) CALC ALBUMIN/CREAT, RND (test 75 MG/G code = 21860) PATHOLOGIST SMEAR [id number] 00:00:00 Test Item Value Reference Range Interpretation Comments DIAGNOSIS: (test code = 8200) (NOTE) COMMENTS: (test code = 8205) (NOTE) MICROSCOPIC DESCRIPTION: (test (NOTE) code = 8210) PATHOLOGIST: (test code = 8250) (NOTE) CPT: (test code = 8400) 54588 WBC (test code = 1001) 2.7 K/UL [...] NUCLEATED RBCS (test code = 0.00 K/UL 69090) COMMENTS (test code = 1016) (NOTE) PATHOLOGIST SMEAR [id number] 00:00:00 Test Item Value Reference Range Interpretation Comments DIAGNOSIS: (test code = 8200) (NOTE) COMMENTS: (test code = 8205) (NOTE) MICROSCOPIC DESCRIPTION: (test (NOTE) code = 8210) PATHOLOGIST: (test code = 8250) (NOTE) CPT: (test code = 8400) 21962 WBC (test code = 1001) 2.7 K/UL [...] NUCLEATED RBCS (test code = 0.00 K/UL 00603) COMMENTS (test code = 1016) (NOTE) PATHOLOGIST SMEAR [id number] 00:00:00 Test Item Value Reference Range Interpretation Comments DIAGNOSIS: (test code = 8200) (NOTE) COMMENTS: (test code = 8205) (NOTE) MICROSCOPIC DESCRIPTION: (test (NOTE) code = 8210) PATHOLOGIST: (test code = 8250) (NOTE) CPT: (test code = 8400) 74612 WBC (test code = 1001) 2.7 K/UL [...] NUCLEATED RBCS (test code = 0.00 K/UL 75414) COMMENTS (test code = 1016) (NOTE) PATHOLOGIST SMEAR [id number] 00:00:00 Test Item Value Reference Range Interpretation Comments DIAGNOSIS: (test code = 8200) (NOTE) COMMENTS: (test code = 8205) (NOTE) MICROSCOPIC DESCRIPTION: (test (NOTE) code = 8210) PATHOLOGIST: (test code = 8250) (NOTE) CPT: (test code = 8400) 44669 WBC (test code = 1001) 2.7 K/UL [...] NUCLEATED RBCS (test code = 0.00 K/UL 73165) COMMENTS (test code = 1016) (NOTE) PATHOLOGIST SMEAR [id number] 00:00:00 Test Item Value Reference Range Interpretation Comments DIAGNOSIS: (test code = 8200) (NOTE) COMMENTS: (test code = 8205) (NOTE) MICROSCOPIC DESCRIPTION: (test (NOTE) code = 8210) PATHOLOGIST: (test code = 8250) (NOTE) CPT: (test code = 8400) 96837 WBC (test code = 1001) 2.7 K/UL [...] NUCLEATED RBCS (test code = 0.00 K/UL 42791) COMMENTS (test code = 1016) (NOTE) PATHOLOGIST SMEAR [id number] 00:00:00 Test Item Value Reference Range Interpretation Comments DIAGNOSIS: (test code = 8200) (NOTE) COMMENTS: (test code = 8205) (NOTE) MICROSCOPIC DESCRIPTION: (test (NOTE) code = 8210) PATHOLOGIST: (test code = 8250) (NOTE) CPT: (test code = 8400) 83929 WBC (test code = 1001) 2.7 K/UL [...] NUCLEATED RBCS (test code = 0.00 K/UL 23155) COMMENTS (test code = 1016) (NOTE) PATHOLOGIST SMEAR [id number] 00:00:00 Test Item Value Reference Range Interpretation Comments DIAGNOSIS: (test code = 8200) (NOTE) COMMENTS: (test code = 8205) (NOTE) MICROSCOPIC DESCRIPTION: (test (NOTE) code = 8210) PATHOLOGIST: (test code = 8250) (NOTE) CPT: (test code = 8400) 65788 WBC (test code = 1001) 2.7 K/UL [...] NUCLEATED RBCS (test code = 0.00 K/UL 42319) COMMENTS (test code = 1016) (NOTE) PATHOLOGIST SMEAR [id number] 00:00:00 Test Item Value Reference Range Interpretation Comments DIAGNOSIS: (test code = 8200) (NOTE) COMMENTS: (test code = 8205) (NOTE) MICROSCOPIC DESCRIPTION: (test (NOTE) code = 8210) PATHOLOGIST: (test code = 8250) (NOTE) CPT: (test code = 8400) 63955 WBC (test code = 1001) 2.7 K/UL [...] NUCLEATED RBCS (test code = 0.00 K/UL 01914) COMMENTS (test code = 1016) (NOTE) PATHOLOGIST SMEAR [id number] 00:00:00 Test Item Value Reference Range Interpretation Comments DIAGNOSIS: (test code = 8200) (NOTE) COMMENTS: (test code = 8205) (NOTE) MICROSCOPIC DESCRIPTION: (test (NOTE) code = 8210) PATHOLOGIST: (test code = 8250) (NOTE) CPT: (test code = 8400) 72687 WBC (test code = 1001) 2.7 K/UL [...] NUCLEATED RBCS (test code = 0.00 K/UL 15672) COMMENTS (test code = 1016) (NOTE) PATHOLOGIST SMEAR [id number] 00:00:00 Test Item Value Reference Range Interpretation Comments DIAGNOSIS: (test code = 8200) (NOTE) COMMENTS: (test code = 8205) (NOTE) MICROSCOPIC DESCRIPTION: (test (NOTE) code = 8210) PATHOLOGIST: (test code = 8250) (NOTE) CPT: (test code = 8400) 66432 WBC (test code = 1001) 2.7 K/UL [...] NUCLEATED RBCS (test code = 0.00 K/UL 26310) COMMENTS (test code = 1016) (NOTE) PATHOLOGIST SMEAR [id number] 00:00:00 Test Item Value Reference Range Interpretation Comments DIAGNOSIS: (test code = 8200) (NOTE) COMMENTS: (test code = 8205) (NOTE) MICROSCOPIC DESCRIPTION: (test (NOTE) code = 8210) PATHOLOGIST: (test code = 8250) (NOTE) CPT: (test code = 8400) 48010 WBC (test code = 1001) 2.7 K/UL [...] NUCLEATED RBCS (test code = 0.00 K/UL 95074) COMMENTS (test code = 1016) (NOTE) PATHOLOGIST SMEAR [id number] 00:00:00 Test Item Value Reference Range Interpretation Comments DIAGNOSIS: (test code = 8200) (NOTE) COMMENTS: (test code = 8205) (NOTE) MICROSCOPIC DESCRIPTION: (test (NOTE) code = 8210) PATHOLOGIST: (test code = 8250) (NOTE) CPT: (test code = 8400) 45073 WBC (test code = 1001) 2.7 K/UL [...] NUCLEATED RBCS (test code = 0.00 K/UL 05228) COMMENTS (test code = 1016) (NOTE) [id number] 00:00:00 Test Item Value Reference Range Interpretation Comments FERRITIN (test code = 2074) 42 NG/ML [id number] 00:00:00 Test Item Value Reference Range Interpretation Comments FERRITIN (test code = 2074) 42 NG/ML [id number] 00:00:00 Test Item Value Reference Range Interpretation Comments TRANSFERRIN (test code = 4936) 281 MG/DL [id number] 00:00:00 Test Item Value Reference Range Interpretation Comments TRANSFERRIN (test code = 4936) 281 MG/DL IRON BINDING CAPACITY AND IRON AND % [id number] 00:00:00 Test Item Value Reference Range Interpretation Comments IRON, SERUM (test code = 2) 28 UG/DL UNSATURATED IBC (test code = ) 315 UG/DL CALC TOTAL IBC (test code = 2076) 343 UG/DL CALC % IRON SAT (test code = 2078) 8 % IRON BINDING CAPACITY AND IRON AND % [id number] 00:00:00 Test Item Value Reference Range Interpretation Comments IRON, SERUM (test code = 2) 28 UG/DL UNSATURATED IBC (test code = 81409) 315 UG/DL CALC TOTAL IBC (test code = 2076) 343 UG/DL CALC % IRON SAT (test code = 2078) 8 % PROTIME AND [id number] 00:00:00 Test Item Value Reference Range Interpretation Comments PROTHROMBIN TIME (PT) (test code 14.8 SECONDS = 1402) INR (test code = 27654) 1.1 PTT (test code = 1403) 35.8 SECONDS PROTIME AND [id number] 00:00:00 Test Item Value Reference Range Interpretation Comments PROTHROMBIN TIME (PT) (test code 14.8 SECONDS = 1402) INR (test code = 32453) 1.1 PTT (test code = 1403) 35.8 SECONDS RHEUMATOID FACTOR, [id number] 00:00:00 Test Item Value Reference Range Interpretation Comments RHEUMATOID FACTOR, QUANT (test code <10 IU/ML = 3502) RHEUMATOID FACTOR, [id number] 00:00:00 Test Item Value Reference Range Interpretation Comments RHEUMATOID FACTOR, QUANT (test code <10 IU/ML = 3502) RHEUMATOID FACTOR, [id number] 00:00:00 Test Item Value Reference Range Interpretation Comments RHEUMATOID FACTOR, QUANT (test code <10 IU/ML = 3502) CCP [id number] 00:00:00 Test Item Value Reference Range Interpretation Comments CCP IgG (test code = 76698) <0.5 U/ML CCP [id number] 00:00:00 Test Item Value Reference Range Interpretation Comments CCP IgG (test code = 49068) <0.5 U/ML CCP [id number] 00:00:00 Test Item Value Reference Range Interpretation Comments CCP IgG (test code = 33206) <0.5 U/ML ASH (SM) [id number] 00:00:00 Test Item Value Reference Range Interpretation Comments ASH (Sm) ANTIBODY (test code = <0.2 AI 76737) ASH (SM) [id number] 00:00:00 Test Item Value Reference Range Interpretation Comments ASH (Sm) ANTIBODY (test code = <0.2 AI 46549) DNA DS [id number] 00:00:00 Test Item Value Reference Range Interpretation Comments dsDNA ANTIBODY (test code = 4287) 1.0 IU/ML DNA DS [id number] 00:00:00 Test Item Value Reference Range Interpretation Comments dsDNA ANTIBODY (test code = 4287) 1.0 IU/ML [id number] 00:00:00 Test Item Value Reference Range Interpretation Comments FERRITIN (test code = 2075) 42 NG/ML [id number] 00:00:00 Test Item Value Reference Range Interpretation Comments FERRITIN (test code = 2075) 42 NG/ML [id number] 00:00:00 Test Item Value Reference Range Interpretation Comments FERRITIN (test code = 2075) 42 NG/ML [id number] 00:00:00 Test Item Value Reference Range Interpretation Comments TRANSFERRIN (test code = 4936) 281 MG/DL [id number] 00:00:00 Test Item Value Reference Range Interpretation Comments TRANSFERRIN (test code = 4936) 281 MG/DL IRON BINDING CAPACITY AND IRON AND % [id number] 00:00:00 Test Item Value Reference Range Interpretation Comments IRON, SERUM (test code = 2222) 28 UG/DL UNSATURATED IBC (test code = 29708) 315 UG/DL CALC TOTAL IBC (test code = 7) 343 UG/DL CALC % IRON SAT (test code = 9) 8 % IRON BINDING CAPACITY AND IRON AND % [id number] 00:00:00 Test Item Value Reference Range Interpretation Comments IRON, SERUM (test code = 2222) 28 UG/DL UNSATURATED IBC (test code = 99470) 315 UG/DL CALC TOTAL IBC (test code = 2077) 343 UG/DL CALC % IRON SAT (test code = 9) 8 % PROTIME AND [id number] 00:00:00 Test Item Value Reference Range Interpretation Comments PROTHROMBIN TIME (PT) (test code 14.8 SECONDS = 1402) INR (test code = 68040) 1.1 PTT (test code = 1403) 35.8 SECONDS PROTIME AND [id number] 00:00:00 Test Item Value Reference Range Interpretation Comments PROTHROMBIN TIME (PT) (test code 14.8 SECONDS = 1402) INR (test code = 87670) 1.1 PTT (test code = 1403) 35.8 SECONDS RHEUMATOID FACTOR, [id number] 00:00:00 Test Item Value Reference Range Interpretation Comments RHEUMATOID FACTOR, QUANT (test code <10 IU/ML = 3502) RHEUMATOID FACTOR, [id number] 00:00:00 Test Item Value Reference Range Interpretation Comments RHEUMATOID FACTOR, QUANT (test code <10 IU/ML = 3502) RHEUMATOID FACTOR, [id number] 00:00:00 Test Item Value Reference Range Interpretation Comments RHEUMATOID FACTOR, QUANT (test code <10 IU/ML = 3502) CCP [id number] 00:00:00 Test Item Value Reference Range Interpretation Comments CCP IgG (test code = 87938) <0.5 U/ML [id number] 00:00:00 Test Item Value Reference Range Interpretation Comments TRANSFERRIN (test code = 4936) 281 MG/DL CCP [id number] 00:00:00 Test Item Value Reference Range Interpretation Comments CCP IgG (test code = 09619) <0.5 U/ML CCP [id number] 00:00:00 Test Item Value Reference Range Interpretation Comments CCP IgG (test code = 56326) <0.5 U/ML ASH (SM) [id number] 00:00:00 Test Item Value Reference Range Interpretation Comments ASH (Sm) ANTIBODY (test code = <0.2 AI 12160) ASH (SM) [id number] 00:00:00 Test Item Value Reference Range Interpretation Comments ASH (Sm) ANTIBODY (test code = <0.2 AI 94406) DNA DS [id number] 00:00:00 Test Item Value Reference Range Interpretation Comments dsDNA ANTIBODY (test code = 4287) 1.0 IU/ML DNA DS [id number] 00:00:00 Test Item Value Reference Range Interpretation Comments dsDNA ANTIBODY (test code = 4287) 1.0 IU/ML IRON BINDING CAPACITY AND IRON AND % [id number] 00:00:00 Test Item Value Reference Range Interpretation Comments IRON, SERUM (test code = 2222) 28 UG/DL UNSATURATED IBC (test code = 16169) 315 UG/DL CALC TOTAL IBC (test code = 2077) 343 UG/DL CALC % IRON SAT (test code = 2079) 8 % PROTIME AND [id number] 00:00:00 Test Item Value Reference Range Interpretation Comments PROTHROMBIN TIME (PT) (test code 14.8 SECONDS = 1402) INR (test code = 75162) 1.1 PTT (test code = 1403) 35.8 SECONDS RHEUMATOID FACTOR, [id number] 00:00:00 Test Item Value Reference Range Interpretation Comments RHEUMATOID FACTOR, QUANT (test code <10 IU/ML = 3502) RHEUMATOID FACTOR, [id number] 00:00:00 Test Item Value Reference Range Interpretation Comments RHEUMATOID FACTOR, QUANT (test code <10 IU/ML = 3502) CCP [id number] 00:00:00 Test Item Value Reference Range Interpretation Comments CCP IgG (test code = 87523) <0.5 U/ML CCP [id number] 00:00:00 Test Item Value Reference Range Interpretation Comments CCP IgG (test code = 26549) <0.5 U/ML ASH (SM) [id number] 00:00:00 Test Item Value Reference Range Interpretation Comments ASH (Sm) ANTIBODY (test code = <0.2 AI 65623) DNA DS [id number] 00:00:00 Test Item Value Reference Range Interpretation Comments dsDNA ANTIBODY (test code = 4287) 1.0 IU/ML [id number] 00:00:00 Test Item Value Reference Range Interpretation Comments FERRITIN (test code = 2074) 42 NG/ML [id number] 00:00:00 Test Item Value Reference Range Interpretation Comments FERRITIN (test code = 2074) 42 NG/ML [id number] 00:00:00 Test Item Value Reference Range Interpretation Comments TRANSFERRIN (test code = 4936) 281 MG/DL [id number] 00:00:00 Test Item Value Reference Range Interpretation Comments TRANSFERRIN (test code = 4936) 281 MG/DL IRON BINDING CAPACITY AND IRON AND % [id number] 00:00:00 Test Item Value Reference Range Interpretation Comments IRON, SERUM (test code = 2) 28 UG/DL UNSATURATED IBC (test code = ) 315 UG/DL CALC TOTAL IBC (test code = 2076) 343 UG/DL CALC % IRON SAT (test code = 2078) 8 % IRON BINDING CAPACITY AND IRON AND % [id number] 00:00:00 Test Item Value Reference Range Interpretation Comments IRON, SERUM (test code = 2222) 28 UG/DL UNSATURATED IBC (test code = 52049) 315 UG/DL CALC TOTAL IBC (test code = 2076) 343 UG/DL CALC % IRON SAT (test code = 2078) 8 % PROTIME AND [id number] 00:00:00 Test Item Value Reference Range Interpretation Comments PROTHROMBIN TIME (PT) (test code 14.8 SECONDS = 1402) INR (test code = 61129) 1.1 PTT (test code = 1403) 35.8 SECONDS PROTIME AND [id number] 00:00:00 Test Item Value Reference Range Interpretation Comments PROTHROMBIN TIME (PT) (test code 14.8 SECONDS = 1402) INR (test code = 44899) 1.1 PTT (test code = 1403) 35.8 SECONDS RHEUMATOID FACTOR, [id number] 00:00:00 Test Item Value Reference Range Interpretation Comments RHEUMATOID FACTOR, QUANT (test code <10 IU/ML = 3502) RHEUMATOID FACTOR, [id number] 00:00:00 Test Item Value Reference Range Interpretation Comments RHEUMATOID FACTOR, QUANT (test code <10 IU/ML = 3502) RHEUMATOID FACTOR, [id number] 00:00:00 Test Item Value Reference Range Interpretation Comments RHEUMATOID FACTOR, QUANT (test code <10 IU/ML = 3502) CCP [id number] 00:00:00 Test Item Value Reference Range Interpretation Comments CCP IgG (test code = 89292) <0.5 U/ML CCP [id number] 00:00:00 Test Item Value Reference Range Interpretation Comments CCP IgG (test code = 85306) <0.5 U/ML CCP [id number] 00:00:00 Test Item Value Reference Range Interpretation Comments CCP IgG (test code = 39730) <0.5 U/ML ASH (SM) [id number] 00:00:00 Test Item Value Reference Range Interpretation Comments ASH (Sm) ANTIBODY (test code = <0.2 AI 18107) ASH (SM) [id number] 00:00:00 Test Item Value Reference Range Interpretation Comments ASH (Sm) ANTIBODY (test code = <0.2 AI 38337) DNA DS [id number] 00:00:00 Test Item Value Reference Range Interpretation Comments dsDNA ANTIBODY (test code = 4287) 1.0 IU/ML DNA DS [id number] 00:00:00 Test Item Value Reference Range Interpretation Comments dsDNA ANTIBODY (test code = 4287) 1.0 IU/ML [id number] 00:00:00 Test Item Value Reference Range Interpretation Comments FERRITIN (test code = 2075) 42 NG/ML [id number] 00:00:00 Test Item Value Reference Range Interpretation Comments FERRITIN (test code = 2075) 42 NG/ML [id number] 00:00:00 Test Item Value Reference Range Interpretation Comments TRANSFERRIN (test code = 4936) 281 MG/DL [id number] 00:00:00 Test Item Value Reference Range Interpretation Comments TRANSFERRIN (test code = 4936) 281 MG/DL IRON BINDING CAPACITY AND IRON AND % [id number] 00:00:00 Test Item Value Reference Range Interpretation Comments IRON, SERUM (test code = 2) 28 UG/DL UNSATURATED IBC (test code = 04117) 315 UG/DL CALC TOTAL IBC (test code = 2076) 343 UG/DL CALC % IRON SAT (test code = 9) 8 % IRON BINDING CAPACITY AND IRON AND % [id number] 00:00:00 Test Item Value Reference Range Interpretation Comments IRON, SERUM (test code = 2222) 28 UG/DL UNSATURATED IBC (test code = 44101) 315 UG/DL CALC TOTAL IBC (test code = 7) 343 UG/DL CALC % IRON SAT (test code = 9) 8 % PROTIME AND [id number] 00:00:00 Test Item Value Reference Range Interpretation Comments PROTHROMBIN TIME (PT) (test code 14.8 SECONDS = 1402) INR (test code = 88837) 1.1 PTT (test code = 1403) 35.8 SECONDS PROTIME AND [id number] 00:00:00 Test Item Value Reference Range Interpretation Comments PROTHROMBIN TIME (PT) (test code 14.8 SECONDS = 1402) INR (test code = 46578) 1.1 PTT (test code = 1403) 35.8 SECONDS RHEUMATOID FACTOR, [id number] 00:00:00 Test Item Value Reference Range Interpretation Comments RHEUMATOID FACTOR, QUANT (test code <10 IU/ML = 3502) RHEUMATOID FACTOR, [id number] 00:00:00 Test Item Value Reference Range Interpretation Comments RHEUMATOID FACTOR, QUANT (test code <10 IU/ML = 3502) RHEUMATOID FACTOR, [id number] 00:00:00 Test Item Value Reference Range Interpretation Comments RHEUMATOID FACTOR, QUANT (test code <10 IU/ML = 3502) CCP [id number] 00:00:00 Test Item Value Reference Range Interpretation Comments CCP IgG (test code = 09353) <0.5 U/ML CCP [id number] 00:00:00 Test Item Value Reference Range Interpretation Comments CCP IgG (test code = 49542) <0.5 U/ML CCP [id number] 00:00:00 Test Item Value Reference Range Interpretation Comments CCP IgG (test code = 03775) <0.5 U/ML ASH (SM) [id number] 00:00:00 Test Item Value Reference Range Interpretation Comments ASH (Sm) ANTIBODY (test code = <0.2 AI 42439) ASH (SM) [id number] 00:00:00 Test Item Value Reference Range Interpretation Comments ASH (Sm) ANTIBODY (test code = <0.2 AI 83355) DNA DS [id number] 00:00:00 Test Item Value Reference Range Interpretation Comments dsDNA ANTIBODY (test code = 4287) 1.0 IU/ML DNA DS [id number] 00:00:00 Test Item Value Reference Range Interpretation Comments dsDNA ANTIBODY (test code = 4287) 1.0 IU/ML [id number] 00:00:00 Test Item Value Reference Range Interpretation Comments FERRITIN (test code = 2075) 42 NG/ML [id number] 00:00:00 Test Item Value Reference Range Interpretation Comments TRANSFERRIN (test code = 4936) 281 MG/DL IRON BINDING CAPACITY AND IRON AND % [id number] 00:00:00 Test Item Value Reference Range Interpretation Comments IRON, SERUM (test code = 2222) 28 UG/DL UNSATURATED IBC (test code = 91123) 315 UG/DL CALC TOTAL IBC (test code = 2077) 343 UG/DL CALC % IRON SAT (test code = 2079) 8 % PROTIME AND [id number] 00:00:00 Test Item Value Reference Range Interpretation Comments PROTHROMBIN TIME (PT) (test code 14.8 SECONDS = 1402) INR (test code = 61638) 1.1 PTT (test code = 1403) 35.8 SECONDS RHEUMATOID FACTOR, [id number] 00:00:00 Test Item Value Reference Range Interpretation Comments RHEUMATOID FACTOR, QUANT (test code <10 IU/ML = 3502) RHEUMATOID FACTOR, [id number] 00:00:00 Test Item Value Reference Range Interpretation Comments RHEUMATOID FACTOR, QUANT (test code <10 IU/ML = 3502) CCP [id number] 00:00:00 Test Item Value Reference Range Interpretation Comments CCP IgG (test code = 17443) <0.5 U/ML CCP [id number] 00:00:00 Test Item Value Reference Range Interpretation Comments CCP IgG (test code = 12342) <0.5 U/ML ASH (SM) [id number] 00:00:00 Test Item Value Reference Range Interpretation Comments ASH (Sm) ANTIBODY (test code = <0.2 AI 16992) DNA DS [id number] 00:00:00 Test Item Value Reference Range Interpretation Comments dsDNA ANTIBODY (test code = 4287) 1.0 IU/ML [id number] 00:00:00 Test Item Value Reference Range Interpretation Comments FERRITIN (test code = 2074) 42 NG/ML [id number] 00:00:00 Test Item Value Reference Range Interpretation Comments FERRITIN (test code = 2074) 42 NG/ML [id number] 00:00:00 Test Item Value Reference Range Interpretation Comments TRANSFERRIN (test code = 4936) 281 MG/DL [id number] 00:00:00 Test Item Value Reference Range Interpretation Comments TRANSFERRIN (test code = 4936) 281 MG/DL IRON BINDING CAPACITY AND IRON AND % [id number] 00:00:00 Test Item Value Reference Range Interpretation Comments IRON, SERUM (test code = 2) 28 UG/DL UNSATURATED IBC (test code = ) 315 UG/DL CALC TOTAL IBC (test code = 2076) 343 UG/DL CALC % IRON SAT (test code = 2078) 8 % IRON BINDING CAPACITY AND IRON AND % [id number] 00:00:00 Test Item Value Reference Range Interpretation Comments IRON, SERUM (test code = 2) 28 UG/DL UNSATURATED IBC (test code = 34023) 315 UG/DL CALC TOTAL IBC (test code = 2076) 343 UG/DL CALC % IRON SAT (test code = 9) 8 % PROTIME AND [id number] 00:00:00 Test Item Value Reference Range Interpretation Comments PROTHROMBIN TIME (PT) (test code 14.8 SECONDS = 1402) INR (test code = 69719) 1.1 PTT (test code = 1403) 35.8 SECONDS PROTIME AND [id number] 00:00:00 Test Item Value Reference Range Interpretation Comments PROTHROMBIN TIME (PT) (test code 14.8 SECONDS = 1402) INR (test code = 46046) 1.1 PTT (test code = 1403) 35.8 SECONDS RHEUMATOID FACTOR, [id number] 00:00:00 Test Item Value Reference Range Interpretation Comments RHEUMATOID FACTOR, QUANT (test code <10 IU/ML = 3502) RHEUMATOID FACTOR, [id number] 00:00:00 Test Item Value Reference Range Interpretation Comments RHEUMATOID FACTOR, QUANT (test code <10 IU/ML = 3502) RHEUMATOID FACTOR, [id number] 00:00:00 Test Item Value Reference Range Interpretation Comments RHEUMATOID FACTOR, QUANT (test code <10 IU/ML = 3502) CCP [id number] 00:00:00 Test Item Value Reference Range Interpretation Comments CCP IgG (test code = 22968) <0.5 U/ML CCP [id number] 00:00:00 Test Item Value Reference Range Interpretation Comments CCP IgG (test code = 23522) <0.5 U/ML CCP [id number] 00:00:00 Test Item Value Reference Range Interpretation Comments CCP IgG (test code = 78683) <0.5 U/ML ASH (SM) [id number] 00:00:00 Test Item Value Reference Range Interpretation Comments ASH (Sm) ANTIBODY (test code = <0.2 AI 67975) ASH (SM) [id number] 00:00:00 Test Item Value Reference Range Interpretation Comments ASH (Sm) ANTIBODY (test code = <0.2 AI 99119) DNA DS [id number] 00:00:00 Test Item Value Reference Range Interpretation Comments dsDNA ANTIBODY (test code = 4287) 1.0 IU/ML DNA DS [id number] 00:00:00 Test Item Value Reference Range Interpretation Comments dsDNA ANTIBODY (test code = 4287) 1.0 IU/ML CULTURE, [id number] 00:00:00 Test Item Value Reference Range Interpretation Comments CULTURE, URINE (test SPECIMEN NUMBER: code = 25508) [id number] CULTURE, [id number] 00:00:00 Test Item Value Reference Range Interpretation Comments CULTURE, URINE (test SPECIMEN NUMBER: code = 08507) [id number] CULTURE, [id number] 00:00:00 Test Item Value Reference Range Interpretation Comments CULTURE, URINE (test SPECIMEN NUMBER: code = 80081) [id number] CULTURE, [id number] 00:00:00 Test Item Value Reference Range Interpretation Comments CULTURE, URINE (test SPECIMEN NUMBER: code = 05742) [id number] CULTURE, [id number] 00:00:00 Test Item Value Reference Range Interpretation Comments CULTURE, URINE (test SPECIMEN NUMBER: code = 25771) [id number] CULTURE, [id number] 00:00:00 Test Item Value Reference Range Interpretation Comments CULTURE, URINE (test SPECIMEN NUMBER: code = 92900) [id number] CULTURE, [id number] 00:00:00 Test Item Value Reference Range Interpretation Comments CULTURE, URINE (test SPECIMEN NUMBER: code = 40444) [id number] CULTURE, [id number] 00:00:00 Test Item Value Reference Range Interpretation Comments CULTURE, URINE (test SPECIMEN NUMBER: code = 91861) [id number] CULTURE, [id number] 00:00:00 Test Item Value Reference Range Interpretation Comments CULTURE, URINE (test SPECIMEN NUMBER: code = 67630) [id number] CULTURE, [id number] 00:00:00 Test Item Value Reference Range Interpretation Comments CULTURE, URINE (test SPECIMEN NUMBER: code = 40083) [id number] CULTURE, [id number] 00:00:00 Test Item Value Reference Range Interpretation Comments CULTURE, URINE (test SPECIMEN NUMBER: code = 91219) [id number] CULTURE, [id number] 00:00:00 Test Item Value Reference Range Interpretation Comments CULTURE, URINE (test SPECIMEN NUMBER: code = 86905) [id number] JAMEEL TITER AND PATTERN [REFLEX]2021-01-17 00:00:00 Test Item Value Reference Range Interpretation Comments PATTERN (test code = SPECKLED 17981) JAMEEL TITER (test code = 1:640 TITER 3550) PATTERN 2 (test code = NOT DETECTED 65420) JAMEEL TITER 2 (test code = NOT DETECTED TITER 24671) PATTERN 3 (test code = NOT DETECTED 96326) JAMEEL TITER 3 (test code = NOT DETECTED TITER 60880) METHOD (test code = 61150) (NOTE) JAMEEL TITER AND PATTERN [REFLEX]2021-01-17 00:00:00 Test Item Value Reference Range Interpretation Comments PATTERN (test code = SPECKLED 53294) JAMEEL TITER (test code = 1:640 TITER 3550) PATTERN 2 (test code = NOT DETECTED 24630) JAMEEL TITER 2 (test code = NOT DETECTED TITER 30707) PATTERN 3 (test code = NOT DETECTED 09353) JAMEEL TITER 3 (test code = NOT DETECTED TITER 86865) METHOD (test code = 22676) (NOTE) JAMEEL TITER AND PATTERN [REFLEX]2021-01-17 00:00:00 Test Item Value Reference Range Interpretation Comments PATTERN (test code = SPECKLED 98955) JAMEEL TITER (test code = 1:640 TITER 3550) PATTERN 2 (test code = NOT DETECTED 36892) JAMEEL TITER 2 (test code = NOT DETECTED TITER 82503) PATTERN 3 (test code = NOT DETECTED 10751) JAMEEL TITER 3 (test code = NOT DETECTED TITER 29051) METHOD (test code = 29760) (NOTE) JAMEEL TITER AND PATTERN [REFLEX]2021-01-17 00:00:00 Test Item Value Reference Range Interpretation Comments PATTERN (test code = SPECKLED 01007) JAMEEL TITER (test code = 1:640 TITER 3550) PATTERN 2 (test code = NOT DETECTED 98095) JAMEEL TITER 2 (test code = NOT DETECTED TITER 17587) PATTERN 3 (test code = NOT DETECTED 36226) JAMEEL TITER 3 (test code = NOT DETECTED TITER 00409) METHOD (test code = 51848) (NOTE) JAMEEL TITER AND PATTERN [REFLEX]2021-01-17 00:00:00 Test Item Value Reference Range Interpretation Comments PATTERN (test code = SPECKLED 64303) JAMEEL TITER (test code = 1:640 TITER 3550) PATTERN 2 (test code = NOT DETECTED 68291) JAMEEL TITER 2 (test code = NOT DETECTED TITER 59864) PATTERN 3 (test code = NOT DETECTED 34178) JAMEEL TITER 3 (test code = NOT DETECTED TITER 60288) METHOD (test code = 86981) (NOTE) JAMEEL TITER AND PATTERN [REFLEX]2021-01-17 00:00:00 Test Item Value Reference Range Interpretation Comments PATTERN (test code = SPECKLED 75700) JAMEEL TITER (test code = 1:640 TITER 3550) PATTERN 2 (test code = NOT DETECTED 64506) JAMEEL TITER 2 (test code = NOT DETECTED TITER 22506) PATTERN 3 (test code = NOT DETECTED 41577) JAMEEL TITER 3 (test code = NOT DETECTED TITER 81772) METHOD (test code = 44637) (NOTE) JAMEEL TITER AND PATTERN [REFLEX]2021-01-17 00:00:00 Test Item Value Reference Range Interpretation Comments PATTERN (test code = SPECKLED 22512) JAMEEL TITER (test code = 1:640 TITER 3550) PATTERN 2 (test code = NOT DETECTED 89533) JAMEEL TITER 2 (test code = NOT DETECTED TITER 73655) PATTERN 3 (test code = NOT DETECTED 66476) JAMEEL TITER 3 (test code = NOT DETECTED TITER 44056) METHOD (test code = 59690) (NOTE) CBC W/AUTO [id number] 00:00:00 Test Item Value Reference Range Interpretation [...] NUCLEATED RBCS (test code = 0.00 K/UL 38732) CBC W/AUTO [id number] 00:00:00 Test Item Value Reference Range Interpretation [...] NUCLEATED RBCS (test code = 0.00 K/UL 23966) CBC W/AUTO [id number] 00:00:00 Test Item Value Reference Range Interpretation [...] NUCLEATED RBCS (test code = 0.00 K/UL 13653) COMPREHENSIVE METABOLIC [id number] 00:00:00 Test Item Value Reference Range Interpretation Comments GLUCOSE (test code = 2217) 139 MG/DL BUN (test code = 2208) 21 MG/DL CREATININE (test code = 2214) 0.83 MG/DL eGFR AMER. (test code 88 ML/MIN/1.73 = 99758) eGFR NON- AMER. (test 76 ML/MIN/1.73 code = 15500) CALC BUN/CREAT (test code = 25 RATIO [...] code = 2219) 23 U/L COMPREHENSIVE METABOLIC [id number] 00:00:00 Test Item Value Reference Range Interpretation Comments GLUCOSE (test code = 2217) 139 MG/DL BUN (test code = 2208) 21 MG/DL CREATININE (test code = 2214) 0.83 MG/DL eGFR AMER. (test code 88 ML/MIN/1.73 = 93510) eGFR NON- AMER. (test 76 ML/MIN/1.73 code = 41207) CALC BUN/CREAT (test code = 25 RATIO [...] ALT (test code = 2219) 23 U/L [id number] 00:00:00 Test Item Value Reference Range Interpretation Comments NT-proBNP (test code = 51516) 247 PG/ML [id number] 00:00:00 Test Item Value Reference Range Interpretation Comments NT-proBNP (test code = 59082) 247 PG/ML [id number] 00:00:00 Test Item Value Reference Range Interpretation Comments NT-proBNP (test code = 21371) 247 PG/ML JAMEEL (ANTI-NUCLEAR AB) WITH REFLEX [id number] 00:00:00 Test Item Value Reference Range Interpretation Comments ANTI-NUCLEAR ANTIBODIES (test code = POSITIVE 3506) JAMEEL (ANTI-NUCLEAR AB) WITH REFLEX [id number] 00:00:00 Test Item Value Reference Range Interpretation Comments ANTI-NUCLEAR ANTIBODIES (test code = POSITIVE 3506) C-REACTIVE [id number] 00:00:00 Test Item Value Reference Range Interpretation Comments C-REACTIVE PROTEIN (test code = 1.1 MG/DL 3513) C-REACTIVE [id number] 00:00:00 Test Item Value Reference Range Interpretation Comments C-REACTIVE PROTEIN (test code = 1.1 MG/DL 3513) SEDIMENTATION [id number] 00:00:00 Test Item Value Reference Range Interpretation Comments SEDIMENTATION RATE (test code = 88 MM/HOUR 1017) SEDIMENTATION [id number] 00:00:00 Test Item Value Reference Range Interpretation Comments SEDIMENTATION RATE (test code = 88 MM/HOUR 1017) [id number] 00:00:00 Test Item Value Reference Range Interpretation Comments D-DIMER (test code = 1405) 0.77 UG/MLFEU [id number] 00:00:00 Test Item Value Reference Range Interpretation Comments D-DIMER (test code = 1405) 0.77 UG/MLFEU CBC W/AUTO [id number] 00:00:00 Test Item Value Reference Range Interpretation [...] NUCLEATED RBCS (test code = 0.00 K/UL 19051) CBC W/AUTO [id number] 00:00:00 Test Item Value Reference Range Interpretation [...] NUCLEATED RBCS (test code = 0.00 K/UL 43120) CBC W/AUTO [id number] 00:00:00 Test Item Value Reference Range Interpretation [...] NUCLEATED RBCS (test code = 0.00 K/UL 91910) CBC W/AUTO [id number] 00:00:00 Test Item Value Reference Range Interpretation [...] NUCLEATED RBCS (test code = 0.00 K/UL 50477) CBC W/AUTO [id number] 00:00:00 Test Item Value Reference Range Interpretation [...] NUCLEATED RBCS (test code = 0.00 K/UL 70856) COMPREHENSIVE METABOLIC [id number] 00:00:00 Test Item Value Reference Range Interpretation Comments GLUCOSE (test code = 2217) 139 MG/DL BUN (test code = 2208) 21 MG/DL CREATININE (test code = 2214) 0.83 MG/DL eGFR AMER. (test code 88 ML/MIN/1.73 = 07697) eGFR NON- AMER. (test 76 ML/MIN/1.73 code = 25926) CALC BUN/CREAT (test code = 25 RATIO [...] code = 2219) 23 U/L COMPREHENSIVE METABOLIC [id number] 00:00:00 Test Item Value Reference Range Interpretation Comments GLUCOSE (test code = 2217) 139 MG/DL BUN (test code = 2208) 21 MG/DL CREATININE (test code = 2214) 0.83 MG/DL eGFR AMER. (test code 88 ML/MIN/1.73 = 65387) eGFR NON- AMER. (test 76 ML/MIN/1.73 code = 73611) CALC BUN/CREAT (test code = 25 RATIO [...] BILIRUBIN, TOTAL (test code = 0.6 MG/DL 7) ALKALINE PHOSPHATASE (test 101 U/L code = 2204) AST (test code = 2218) 30 U/L ALT (test code = 2219) 23 U/L [id number] 00:00:00 Test Item Value Reference Range Interpretation Comments NT-proBNP (test code = 27126) 247 PG/ML [id number] 00:00:00 Test Item Value Reference Range Interpretation Comments NT-proBNP (test code = 39978) 247 PG/ML [id number] 00:00:00 Test Item Value Reference Range Interpretation Comments NT-proBNP (test code = 28188) 247 PG/ML JAMEEL (ANTI-NUCLEAR AB) WITH REFLEX [id number] 00:00:00 Test Item Value Reference Range Interpretation Comments ANTI-NUCLEAR ANTIBODIES (test code = POSITIVE 3506) JAMEEL (ANTI-NUCLEAR AB) WITH REFLEX [id number] 00:00:00 Test Item Value Reference Range Interpretation Comments ANTI-NUCLEAR ANTIBODIES (test code = POSITIVE 3506) C-REACTIVE [id number] 00:00:00 Test Item Value Reference Range Interpretation Comments C-REACTIVE PROTEIN (test code = 1.1 MG/DL 3513) C-REACTIVE [id number] 00:00:00 Test Item Value Reference Range Interpretation Comments C-REACTIVE PROTEIN (test code = 1.1 MG/DL 3513) COMPREHENSIVE METABOLIC [id number] 00:00:00 Test Item Value Reference Range Interpretation Comments GLUCOSE (test code = 2217) 139 MG/DL BUN (test code = 2208) 21 MG/DL CREATININE (test code = 2214) 0.83 MG/DL eGFR AMER. (test code 88 ML/MIN/1.73 = 61088) eGFR NON- AMER. (test 76 ML/MIN/1.73 code = 20031) CALC BUN/CREAT (test code = 25 RATIO [...] (test code = 2219) 23 U/L SEDIMENTATION [id number] 00:00:00 Test Item Value Reference Range Interpretation Comments SEDIMENTATION RATE (test code = 88 MM/HOUR 1017) SEDIMENTATION [id number] 00:00:00 Test Item Value Reference Range Interpretation Comments SEDIMENTATION RATE (test code = 88 MM/HOUR 1017) [id number] 00:00:00 Test Item Value Reference Range Interpretation Comments D-DIMER (test code = 1405) 0.77 UG/MLFEU [id number] 00:00:00 Test Item Value Reference Range Interpretation Comments D-DIMER (test code = 1405) 0.77 UG/MLFEU [id number] 00:00:00 Test Item Value Reference Range Interpretation Comments NT-proBNP (test code = 80675) 247 PG/ML [id number] 00:00:00 Test Item Value Reference Range Interpretation Comments NT-proBNP (test code = 94448) 247 PG/ML JAMEEL (ANTI-NUCLEAR AB) WITH REFLEX [id number] 00:00:00 Test Item Value Reference Range Interpretation Comments ANTI-NUCLEAR ANTIBODIES (test code = POSITIVE 3506) C-REACTIVE [id number] 00:00:00 Test Item Value Reference Range Interpretation Comments C-REACTIVE PROTEIN (test code = 1.1 MG/DL 3513) SEDIMENTATION [id number] 00:00:00 Test Item Value Reference Range Interpretation Comments SEDIMENTATION RATE (test code = 88 MM/HOUR 1017) [id number] 00:00:00 Test Item Value Reference Range Interpretation Comments D-DIMER (test code = 1405) 0.77 UG/MLFEU CBC W/AUTO [id number] 00:00:00 Test Item Value Reference Range Interpretation [...] NUCLEATED RBCS (test code = 0.00 K/UL 68968) CBC W/AUTO [id number] 00:00:00 Test Item Value Reference Range Interpretation [...] NUCLEATED RBCS (test code = 0.00 K/UL 41815) CBC W/AUTO [id number] 00:00:00 Test Item Value Reference Range Interpretation [...] NUCLEATED RBCS (test code = 0.00 K/UL 36815) COMPREHENSIVE METABOLIC [id number] 00:00:00 Test Item Value Reference Range Interpretation Comments GLUCOSE (test code = 2217) 139 MG/DL BUN (test code = 2208) 21 MG/DL CREATININE (test code = 2214) 0.83 MG/DL eGFR AMER. (test code 88 ML/MIN/1.73 = 98281) eGFR NON- AMER. (test 76 ML/MIN/1.73 code = 54521) CALC BUN/CREAT (test code = 25 RATIO [...] code = 2219) 23 U/L COMPREHENSIVE METABOLIC [id number] 00:00:00 Test Item Value Reference Range Interpretation Comments GLUCOSE (test code = 2217) 139 MG/DL BUN (test code = 2208) 21 MG/DL CREATININE (test code = 2214) 0.83 MG/DL eGFR AMER. (test code 88 ML/MIN/1.73 = 99024) eGFR NON- AMER. (test 76 ML/MIN/1.73 code = 39297) CALC BUN/CREAT (test code = 25 RATIO [...] ALT (test code = 2219) 23 U/L [id number] 00:00:00 Test Item Value Reference Range Interpretation Comments NT-proBNP (test code = 58156) 247 PG/ML [id number] 00:00:00 Test Item Value Reference Range Interpretation Comments NT-proBNP (test code = 34355) 247 PG/ML [id number] 00:00:00 Test Item Value Reference Range Interpretation Comments NT-proBNP (test code = 49589) 247 PG/ML JAMEEL (ANTI-NUCLEAR AB) WITH REFLEX [id number] 00:00:00 Test Item Value Reference Range Interpretation Comments ANTI-NUCLEAR ANTIBODIES (test code = POSITIVE 3506) JAMEEL (ANTI-NUCLEAR AB) WITH REFLEX [id number] 00:00:00 Test Item Value Reference Range Interpretation Comments ANTI-NUCLEAR ANTIBODIES (test code = POSITIVE 3506) C-REACTIVE [id number] 00:00:00 Test Item Value Reference Range Interpretation Comments C-REACTIVE PROTEIN (test code = 1.1 MG/DL 3513) C-REACTIVE [id number] 00:00:00 Test Item Value Reference Range Interpretation Comments C-REACTIVE PROTEIN (test code = 1.1 MG/DL 3513) SEDIMENTATION [id number] 00:00:00 Test Item Value Reference Range Interpretation Comments SEDIMENTATION RATE (test code = 88 MM/HOUR 1017) SEDIMENTATION [id number] 00:00:00 Test Item Value Reference Range Interpretation Comments SEDIMENTATION RATE (test code = 88 MM/HOUR 1017) [id number] 00:00:00 Test Item Value Reference Range Interpretation Comments D-DIMER (test code = 1405) 0.77 UG/MLFEU [id number] 00:00:00 Test Item Value Reference Range Interpretation Comments D-DIMER (test code = 1405) 0.77 UG/MLFEU CBC W/AUTO [id number] 00:00:00 Test Item Value Reference Range Interpretation [...] NUCLEATED RBCS (test code = 0.00 K/UL 29209) CBC W/AUTO [id number] 00:00:00 Test Item Value Reference Range Interpretation [...] NUCLEATED RBCS (test code = 0.00 K/UL 25394) CBC W/AUTO [id number] 00:00:00 Test Item Value Reference Range Interpretation [...] NUCLEATED RBCS (test code = 0.00 K/UL 66866) COMPREHENSIVE METABOLIC [id number] 00:00:00 Test Item Value Reference Range Interpretation Comments GLUCOSE (test code = 2217) 139 MG/DL BUN (test code = 2208) 21 MG/DL CREATININE (test code = 2214) 0.83 MG/DL eGFR AMER. (test code 88 ML/MIN/1.73 = 58569) eGFR NON- AMER. (test 76 ML/MIN/1.73 code = 24836) CALC BUN/CREAT (test code = 25 RATIO [...] code = 2219) 23 U/L COMPREHENSIVE METABOLIC [id number] 00:00:00 Test Item Value Reference Range Interpretation Comments GLUCOSE (test code = 2217) 139 MG/DL BUN (test code = 2208) 21 MG/DL CREATININE (test code = 2214) 0.83 MG/DL eGFR AMER. (test code 88 ML/MIN/1.73 = 49607) eGFR NON- AMER. (test 76 ML/MIN/1.73 code = 25983) CALC BUN/CREAT (test code = 25 RATIO [...] ALT (test code = 2219) 23 U/L [id number] 00:00:00 Test Item Value Reference Range Interpretation Comments NT-proBNP (test code = 34618) 247 PG/ML [id number] 00:00:00 Test Item Value Reference Range Interpretation Comments NT-proBNP (test code = 31862) 247 PG/ML [id number] 00:00:00 Test Item Value Reference Range Interpretation Comments NT-proBNP (test code = 55588) 247 PG/ML JAMEEL (ANTI-NUCLEAR AB) WITH REFLEX [id number] 00:00:00 Test Item Value Reference Range Interpretation Comments ANTI-NUCLEAR ANTIBODIES (test code = POSITIVE 3506) JAMEEL (ANTI-NUCLEAR AB) WITH REFLEX [id number] 00:00:00 Test Item Value Reference Range Interpretation Comments ANTI-NUCLEAR ANTIBODIES (test code = POSITIVE 3506) C-REACTIVE [id number] 00:00:00 Test Item Value Reference Range Interpretation Comments C-REACTIVE PROTEIN (test code = 1.1 MG/DL 3513) C-REACTIVE [id number] 00:00:00 Test Item Value Reference Range Interpretation Comments C-REACTIVE PROTEIN (test code = 1.1 MG/DL 3513) SEDIMENTATION [id number] 00:00:00 Test Item Value Reference Range Interpretation Comments SEDIMENTATION RATE (test code = 88 MM/HOUR 1017) SEDIMENTATION [id number] 00:00:00 Test Item Value Reference Range Interpretation Comments SEDIMENTATION RATE (test code = 88 MM/HOUR 1017) [id number] 00:00:00 Test Item Value Reference Range Interpretation Comments D-DIMER (test code = 1405) 0.77 UG/MLFEU [id number] 00:00:00 Test Item Value Reference Range Interpretation Comments D-DIMER (test code = 1405) 0.77 UG/MLFEU CBC W/AUTO [id number] 00:00:00 Test Item Value Reference Range Interpretation [...] NUCLEATED RBCS (test code = 0.00 K/UL 09292) CBC W/AUTO [id number] 00:00:00 Test Item Value Reference Range Interpretation [...] NUCLEATED RBCS (test code = 0.00 K/UL 46839) COMPREHENSIVE METABOLIC [id number] 00:00:00 Test Item Value Reference Range Interpretation Comments GLUCOSE (test code = 2217) 139 MG/DL BUN (test code = 2208) 21 MG/DL CREATININE (test code = 2214) 0.83 MG/DL eGFR AMER. (test code 88 ML/MIN/1.73 = 06424) eGFR NON- AMER. (test 76 ML/MIN/1.73 code = 85300) CALC BUN/CREAT (test code = 25 RATIO [...] CALC GLOBULIN (test code = 3.6 G/DL 224) CALC A/G RATIO (test code = 1.0 RATIO 2233) BILIRUBIN, TOTAL (test code = 0.6 MG/DL 2206) ALKALINE PHOSPHATASE (test 101 U/L code = 2204) AST (test code = 2218) 30 U/L ALT (test code = 2219) 23 U/L [id number] 00:00:00 Test Item Value Reference Range Interpretation Comments NT-proBNP (test code = 89397) 247 PG/ML [id number] 00:00:00 Test Item Value Reference Range Interpretation Comments NT-proBNP (test code = 53080) 247 PG/ML JAMEEL (ANTI-NUCLEAR AB) WITH REFLEX [id number] 00:00:00 Test Item Value Reference Range Interpretation Comments ANTI-NUCLEAR ANTIBODIES (test code = POSITIVE 3506) C-REACTIVE [id number] 00:00:00 Test Item Value Reference Range Interpretation Comments C-REACTIVE PROTEIN (test code = 1.1 MG/DL 3513) SEDIMENTATION [id number] 00:00:00 Test Item Value Reference Range Interpretation Comments SEDIMENTATION RATE (test code = 88 MM/HOUR 1017) [id number] 00:00:00 Test Item Value Reference Range Interpretation Comments D-DIMER (test code = 1405) 0.77 UG/MLFEU CBC W/AUTO [id number] 00:00:00 Test Item Value Reference Range Interpretation [...] NUCLEATED RBCS (test code = 0.00 K/UL 48380) CBC W/AUTO [id number] 00:00:00 Test Item Value Reference Range Interpretation [...] NUCLEATED RBCS (test code = 0.00 K/UL 64898) CBC W/AUTO [id number] 00:00:00 Test Item Value Reference Range Interpretation [...] NUCLEATED RBCS (test code = 0.00 K/UL 09783) COMPREHENSIVE METABOLIC [id number] 00:00:00 Test Item Value Reference Range Interpretation Comments GLUCOSE (test code = 2217) 139 MG/DL BUN (test code = 2208) 21 MG/DL CREATININE (test code = 2214) 0.83 MG/DL eGFR AMER. (test code 88 ML/MIN/1.73 = 03344) eGFR NON- AMER. (test 76 ML/MIN/1.73 code = 05650) CALC BUN/CREAT (test code = 25 RATIO [...] code = 2219) 23 U/L COMPREHENSIVE METABOLIC [id number] 00:00:00 Test Item Value Reference Range Interpretation Comments GLUCOSE (test code = 2217) 139 MG/DL BUN (test code = 2208) 21 MG/DL CREATININE (test code = 2214) 0.83 MG/DL eGFR AMER. (test code 88 ML/MIN/1.73 = 86691) eGFR NON- AMER. (test 76 ML/MIN/1.73 code = 33378) CALC BUN/CREAT (test code = 25 RATIO [...] ALT (test code = 2219) 23 U/L [id number] 00:00:00 Test Item Value Reference Range Interpretation Comments NT-proBNP (test code = 45682) 247 PG/ML [id number] 00:00:00 Test Item Value Reference Range Interpretation Comments NT-proBNP (test code = 49887) 247 PG/ML [id number] 00:00:00 Test Item Value Reference Range Interpretation Comments NT-proBNP (test code = 82092) 247 PG/ML JAMEEL (ANTI-NUCLEAR AB) WITH REFLEX [id number] 00:00:00 Test Item Value Reference Range Interpretation Comments ANTI-NUCLEAR ANTIBODIES (test code = POSITIVE 3506) JAMEEL (ANTI-NUCLEAR AB) WITH REFLEX [id number] 00:00:00 Test Item Value Reference Range Interpretation Comments ANTI-NUCLEAR ANTIBODIES (test code = POSITIVE 3506) C-REACTIVE [id number] 00:00:00 Test Item Value Reference Range Interpretation Comments C-REACTIVE PROTEIN (test code = 1.1 MG/DL 3513) C-REACTIVE [id number] 00:00:00 Test Item Value Reference Range Interpretation Comments C-REACTIVE PROTEIN (test code = 1.1 MG/DL 3513) SEDIMENTATION [id number] 00:00:00 Test Item Value Reference Range Interpretation Comments SEDIMENTATION RATE (test code = 88 MM/HOUR 1017) SEDIMENTATION [id number] 00:00:00 Test Item Value Reference Range Interpretation Comments SEDIMENTATION RATE (test code = 88 MM/HOUR 1017) [id number] 00:00:00 Test Item Value Reference Range Interpretation Comments D-DIMER (test code = 1405) 0.77 UG/MLFEU [id number] 00:00:00 Test Item Value Reference Range Interpretation Comments D-DIMER (test code = 1405) 0.77 UG/MLFEU HEMOGLOBIN [id number] 00:00:00 Test Item Value Reference Range Interpretation Comments HEMOGLOBIN A1c (test code = 06506) 7.5 % HEMOGLOBIN [id number] 00:00:00 Test Item Value Reference Range Interpretation Comments HEMOGLOBIN A1c (test code = 01668) 7.5 % HEMOGLOBIN [id number] 00:00:00 Test Item Value Reference Range Interpretation Comments HEMOGLOBIN A1c (test code = 08303) 7.5 % HEMOGLOBIN [id number] 00:00:00 Test Item Value Reference Range Interpretation Comments HEMOGLOBIN A1c (test code = 45863) 7.5 % HEMOGLOBIN [id number] 00:00:00 Test Item Value Reference Range Interpretation Comments HEMOGLOBIN A1c (test code = 42136) 7.5 % HEMOGLOBIN [id number] 00:00:00 Test Item Value Reference Range Interpretation Comments HEMOGLOBIN A1c (test code = 14356) 7.5 % HEMOGLOBIN [id number] 00:00:00 Test Item Value Reference Range Interpretation Comments HEMOGLOBIN A1c (test code = 16640) 7.5 % HEMOGLOBIN [id number] 00:00:00 Test Item Value Reference Range Interpretation Comments HEMOGLOBIN A1c (test code = 71676) 7.5 % HEMOGLOBIN [id number] 00:00:00 Test Item Value Reference Range Interpretation Comments HEMOGLOBIN A1c (test code = 53223) 7.5 % HEMOGLOBIN [id number] 00:00:00 Test Item Value Reference Range Interpretation Comments HEMOGLOBIN A1c (test code = 40851) 7.5 % HEMOGLOBIN [id number] 00:00:00 Test Item Value Reference Range Interpretation Comments HEMOGLOBIN A1c (test code = 72794) 7.5 % HEMOGLOBIN [id number] 00:00:00 Test Item Value Reference Range Interpretation Comments HEMOGLOBIN A1c (test code = 11284) 7.5 % HEMOGLOBIN [id number] 00:00:00 Test Item Value Reference Range Interpretation Comments HEMOGLOBIN A1c (test code = 94443) 7.5 % HEMOGLOBIN [id number] 00:00:00 Test Item Value Reference Range Interpretation Comments HEMOGLOBIN A1c (test code = 69437) 7.5 % HEMOGLOBIN [id number] 00:00:00 Test Item Value Reference Range Interpretation Comments HEMOGLOBIN A1c (test code = 72521) 7.5 % HEMOGLOBIN [id number] 00:00:00 Test Item Value Reference Range Interpretation Comments HEMOGLOBIN A1c (test code = 95855) 7.5 % HEMOGLOBIN [id number] 00:00:00 Test Item Value Reference Range Interpretation Comments HEMOGLOBIN A1c (test code = 53618) 7.5 % HEMOGLOBIN [id number] 00:00:00 Test Item Value Reference Range Interpretation Comments HEMOGLOBIN A1c (test code = 65576) 7.5 % HEMOGLOBIN [id number] 00:00:00 Test Item Value Reference Range Interpretation Comments HEMOGLOBIN A1c (test code = 04965) 7.5 % CULTURE, [id number] 00:00:00 Test Item Value Reference Range Interpretation Comments CULTURE, URINE (test SPECIMEN NUMBER: code = 88468) [id number] CULTURE, [id number] 00:00:00 Test Item Value Reference Range Interpretation Comments CULTURE, URINE (test SPECIMEN NUMBER: code = 88494) [id number] CULTURE, [id number] 00:00:00 Test Item Value Reference Range Interpretation Comments CULTURE, URINE (test SPECIMEN NUMBER: code = 43387) [id number] CULTURE, [id number] 00:00:00 Test Item Value Reference Range Interpretation Comments CULTURE, URINE (test SPECIMEN NUMBER: code = 18083) [id number] CULTURE, [id number] 00:00:00 Test Item Value Reference Range Interpretation Comments CULTURE, URINE (test SPECIMEN NUMBER: code = 01575) [id number] CULTURE, [id number] 00:00:00 Test Item Value Reference Range Interpretation Comments CULTURE, URINE (test SPECIMEN NUMBER: code = 04096) [id number] CULTURE, [id number] 00:00:00 Test Item Value Reference Range Interpretation Comments CULTURE, URINE (test SPECIMEN NUMBER: code = 21962) [id number] CULTURE, [id number] 00:00:00 Test Item Value Reference Range Interpretation Comments CULTURE, URINE (test SPECIMEN NUMBER: code = 90230) [id number] CULTURE, [id number] 00:00:00 Test Item Value Reference Range Interpretation Comments CULTURE, URINE (test SPECIMEN NUMBER: code = 59994) [id number] CULTURE, [id number] 00:00:00 Test Item Value Reference Range Interpretation Comments CULTURE, URINE (test SPECIMEN NUMBER: code = 69903) [id number] CULTURE, [id number] 00:00:00 Test Item Value Reference Range Interpretation Comments CULTURE, URINE (test SPECIMEN NUMBER: code = 13302) [id number] CULTURE, [id number] 00:00:00 Test Item Value Reference Range Interpretation Comments CULTURE, URINE (test SPECIMEN NUMBER: code = 32411) [id number] HEMOGLOBIN [id number] 00:00:00 Test Item Value Reference Range Interpretation Comments HEMOGLOBIN A1c (test code = 29216) 8.6 % HEMOGLOBIN [id number] 00:00:00 Test Item Value Reference Range Interpretation Comments HEMOGLOBIN A1c (test code = 80412) 8.6 % HEMOGLOBIN [id number] 00:00:00 Test Item Value Reference Range Interpretation Comments HEMOGLOBIN A1c (test code = 64195) 8.6 % LIPID [id number] 00:00:00 Test Item Value Reference Range Interpretation Comments CHOLESTEROL (test code = 2210) 104 MG/DL TRIGLYCERIDES (test code = 2232) 164 MG/DL HDL CHOLESTEROL (test code = 2220) 39 MG/DL CALC LDL CHOL (test code = 2237) 41 MG/DL RISK RATIO LDL/HDL (test code = 1.05 RATIO 2238) LIPID [id number] 00:00:00 Test Item Value Reference Range Interpretation Comments CHOLESTEROL (test code = 2210) 104 MG/DL TRIGLYCERIDES (test code = 2232) 164 MG/DL HDL CHOLESTEROL (test code = 2220) 39 MG/DL CALC LDL CHOL (test code = 2237) 41 MG/DL RISK RATIO LDL/HDL (test code = 1.05 RATIO 2238) COMPREHENSIVE METABOLIC [id number] 00:00:00 Test Item Value Reference Range Interpretation Comments GLUCOSE (test code = 2217) 330 MG/DL BUN (test code = 2208) 11 MG/DL CREATININE (test code = 2214) 0.84 MG/DL eGFR AMER. (test code 87 ML/MIN/1.73 = 83641) eGFR NON- AMER. (test 75 ML/MIN/1.73 code = 31185) CALC BUN/CREAT (test code = 13 RATIO [...] code = 2219) 29 U/L COMPREHENSIVE METABOLIC [id number] 00:00:00 Test Item Value Reference Range Interpretation Comments GLUCOSE (test code = 2217) 330 MG/DL BUN (test code = 2208) 11 MG/DL CREATININE (test code = 2214) 0.84 MG/DL eGFR AMER. (test code 87 ML/MIN/1.73 = 76812) eGFR NON- AMER. (test 75 ML/MIN/1.73 code = 37289) CALC BUN/CREAT (test code = 13 RATIO [...] = 2219) 29 U/L MICROALBUMIN/CREATININE, RANDOM AND [id number] 00:00:00 Test Item Value Reference Range Interpretation Comments CREATININE, URINE, CONC. (test 131.3 MG/DL code = 2072) ALBUMIN, URINE, RANDOM (test code 0.4 MG/DL = 67061) CALC ALBUMIN/CREAT, RND (test 3 MG/G code = 43417) MICROALBUMIN/CREATININE, RANDOM AND [id number] 00:00:00 Test Item Value Reference Range Interpretation Comments CREATININE, URINE, CONC. (test 131.3 MG/DL code = 2072) ALBUMIN, URINE, RANDOM (test code 0.4 MG/DL = 01229) CALC ALBUMIN/CREAT, RND (test 3 MG/G code = 28635) HEMOGLOBIN [id number] 00:00:00 Test Item Value Reference Range Interpretation Comments HEMOGLOBIN A1c (test code = 40105) 8.6 % HEMOGLOBIN [id number] 00:00:00 Test Item Value Reference Range Interpretation Comments HEMOGLOBIN A1c (test code = 72806) 8.6 % HEMOGLOBIN [id number] 00:00:00 Test Item Value Reference Range Interpretation Comments HEMOGLOBIN A1c (test code = 63334) 8.6 % HEMOGLOBIN [id number] 00:00:00 Test Item Value Reference Range Interpretation Comments HEMOGLOBIN A1c (test code = 94663) 8.6 % HEMOGLOBIN [id number] 00:00:00 Test Item Value Reference Range Interpretation Comments HEMOGLOBIN A1c (test code = 23658) 8.6 % LIPID [id number] 00:00:00 Test Item Value Reference Range Interpretation Comments CHOLESTEROL (test code = 2210) 104 MG/DL TRIGLYCERIDES (test code = 2232) 164 MG/DL HDL CHOLESTEROL (test code = 2220) 39 MG/DL CALC LDL CHOL (test code = 2237) 41 MG/DL RISK RATIO LDL/HDL (test code = 1.05 RATIO 2238) LIPID [id number] 00:00:00 Test Item Value Reference Range Interpretation Comments CHOLESTEROL (test code = 2210) 104 MG/DL TRIGLYCERIDES (test code = 2232) 164 MG/DL HDL CHOLESTEROL (test code = 2220) 39 MG/DL CALC LDL CHOL (test code = 2237) 41 MG/DL RISK RATIO LDL/HDL (test code = 1.05 RATIO 2238) COMPREHENSIVE METABOLIC [id number] 00:00:00 Test Item Value Reference Range Interpretation Comments GLUCOSE (test code = 2217) 330 MG/DL BUN (test code = 2208) 11 MG/DL CREATININE (test code = 2214) 0.84 MG/DL eGFR AMER. (test code 87 ML/MIN/1.73 = 18342) eGFR NON- AMER. (test 75 ML/MIN/1.73 code = 90992) CALC BUN/CREAT (test code = 13 RATIO [...] code = 2219) 29 U/L COMPREHENSIVE METABOLIC [id number] 00:00:00 Test Item Value Reference Range Interpretation Comments GLUCOSE (test code = 2217) 330 MG/DL BUN (test code = 2208) 11 MG/DL CREATININE (test code = 2214) 0.84 MG/DL eGFR AMER. (test code 87 ML/MIN/1.73 = 02778) eGFR NON- AMER. (test 75 ML/MIN/1.73 code = 58288) CALC BUN/CREAT (test code = 13 RATIO [...] = 2219) 29 U/L MICROALBUMIN/CREATININE, RANDOM AND [id number] 00:00:00 Test Item Value Reference Range Interpretation Comments CREATININE, URINE, CONC. (test 131.3 MG/DL code = 2072) ALBUMIN, URINE, RANDOM (test code 0.4 MG/DL = 88521) CALC ALBUMIN/CREAT, RND (test 3 MG/G code = 94901) MICROALBUMIN/CREATININE, RANDOM AND [id number] 00:00:00 Test Item Value Reference Range Interpretation Comments CREATININE, URINE, CONC. (test 131.3 MG/DL code = 2072) ALBUMIN, URINE, RANDOM (test code 0.4 MG/DL = 30774) CALC ALBUMIN/CREAT, RND (test 3 MG/G code = 76356) LIPID [id number] 00:00:00 Test Item Value Reference Range Interpretation Comments CHOLESTEROL (test code = 2210) 104 MG/DL TRIGLYCERIDES (test code = 2232) 164 MG/DL HDL CHOLESTEROL (test code = 2220) 39 MG/DL CALC LDL CHOL (test code = 2237) 41 MG/DL RISK RATIO LDL/HDL (test code = 1.05 RATIO 2238) COMPREHENSIVE METABOLIC [id number] 00:00:00 Test Item Value Reference Range Interpretation Comments GLUCOSE (test code = 2217) 330 MG/DL BUN (test code = 2208) 11 MG/DL CREATININE (test code = 2214) 0.84 MG/DL eGFR AMER. (test code 87 ML/MIN/1.73 = 76309) eGFR NON- AMER. (test 75 ML/MIN/1.73 code = 59120) CALC BUN/CREAT (test code = 13 RATIO [...] = 2219) 29 U/L MICROALBUMIN/CREATININE, RANDOM AND [id number] 00:00:00 Test Item Value Reference Range Interpretation Comments CREATININE, URINE, CONC. (test 131.3 MG/DL code = 2072) ALBUMIN, URINE, RANDOM (test code 0.4 MG/DL = 31495) CALC ALBUMIN/CREAT, RND (test 3 MG/G code = 39662) HEMOGLOBIN [id number] 00:00:00 Test Item Value Reference Range Interpretation Comments HEMOGLOBIN A1c (test code = 95522) 8.6 % HEMOGLOBIN [id number] 00:00:00 Test Item Value Reference Range Interpretation Comments HEMOGLOBIN A1c (test code = 37269) 8.6 % HEMOGLOBIN [id number] 00:00:00 Test Item Value Reference Range Interpretation Comments HEMOGLOBIN A1c (test code = 98328) 8.6 % LIPID [id number] 00:00:00 Test Item Value Reference Range Interpretation Comments CHOLESTEROL (test code = 2210) 104 MG/DL TRIGLYCERIDES (test code = 2232) 164 MG/DL HDL CHOLESTEROL (test code = 2220) 39 MG/DL CALC LDL CHOL (test code = 2237) 41 MG/DL RISK RATIO LDL/HDL (test code = 1.05 RATIO 2238) LIPID [id number] 00:00:00 Test Item Value Reference Range Interpretation Comments CHOLESTEROL (test code = 2210) 104 MG/DL TRIGLYCERIDES (test code = 2232) 164 MG/DL HDL CHOLESTEROL (test code = 2220) 39 MG/DL CALC LDL CHOL (test code = 2237) 41 MG/DL RISK RATIO LDL/HDL (test code = 1.05 RATIO 2238) COMPREHENSIVE METABOLIC [id number] 00:00:00 Test Item Value Reference Range Interpretation Comments GLUCOSE (test code = 2217) 330 MG/DL BUN (test code = 2208) 11 MG/DL CREATININE (test code = 2214) 0.84 MG/DL eGFR AMER. (test code 87 ML/MIN/1.73 = 42562) eGFR NON- AMER. (test 75 ML/MIN/1.73 code = 64624) CALC BUN/CREAT (test code = 13 RATIO [...] code = 2219) 29 U/L COMPREHENSIVE METABOLIC [id number] 00:00:00 Test Item Value Reference Range Interpretation Comments GLUCOSE (test code = 2217) 330 MG/DL BUN (test code = 2208) 11 MG/DL CREATININE (test code = 2214) 0.84 MG/DL eGFR AMER. (test code 87 ML/MIN/1.73 = 68537) eGFR NON- AMER. (test 75 ML/MIN/1.73 code = 82494) CALC BUN/CREAT (test code = 13 RATIO [...] = 2219) 29 U/L MICROALBUMIN/CREATININE, RANDOM AND [id number] 00:00:00 Test Item Value Reference Range Interpretation Comments CREATININE, URINE, CONC. (test 131.3 MG/DL code = 2072) ALBUMIN, URINE, RANDOM (test code 0.4 MG/DL = 36627) CALC ALBUMIN/CREAT, RND (test 3 MG/G code = 55056) MICROALBUMIN/CREATININE, RANDOM AND [id number] 00:00:00 Test Item Value Reference Range Interpretation Comments CREATININE, URINE, CONC. (test 131.3 MG/DL code = 2072) ALBUMIN, URINE, RANDOM (test code 0.4 MG/DL = 96201) CALC ALBUMIN/CREAT, RND (test 3 MG/G code = 11618) HEMOGLOBIN [id number] 00:00:00 Test Item Value Reference Range Interpretation Comments HEMOGLOBIN A1c (test code = 40238) 8.6 % HEMOGLOBIN [id number] 00:00:00 Test Item Value Reference Range Interpretation Comments HEMOGLOBIN A1c (test code = 74295) 8.6 % HEMOGLOBIN [id number] 00:00:00 Test Item Value Reference Range Interpretation Comments HEMOGLOBIN A1c (test code = 43939) 8.6 % LIPID [id number] 00:00:00 Test Item Value Reference Range Interpretation Comments CHOLESTEROL (test code = 2210) 104 MG/DL TRIGLYCERIDES (test code = 2232) 164 MG/DL HDL CHOLESTEROL (test code = 2220) 39 MG/DL CALC LDL CHOL (test code = 2237) 41 MG/DL RISK RATIO LDL/HDL (test code = 1.05 RATIO 2238) LIPID [id number] 00:00:00 Test Item Value Reference Range Interpretation Comments CHOLESTEROL (test code = 2210) 104 MG/DL TRIGLYCERIDES (test code = 2232) 164 MG/DL HDL CHOLESTEROL (test code = 2220) 39 MG/DL CALC LDL CHOL (test code = 2237) 41 MG/DL RISK RATIO LDL/HDL (test code = 1.05 RATIO 2238) COMPREHENSIVE METABOLIC [id number] 00:00:00 Test Item Value Reference Range Interpretation Comments GLUCOSE (test code = 2217) 330 MG/DL BUN (test code = 2208) 11 MG/DL CREATININE (test code = 2214) 0.84 MG/DL eGFR AMER. (test code 87 ML/MIN/1.73 = 79309) eGFR NON- AMER. (test 75 ML/MIN/1.73 code = 98144) CALC BUN/CREAT (test code = 13 RATIO [...] code = 2219) 29 U/L COMPREHENSIVE METABOLIC [id number] 00:00:00 Test Item Value Reference Range Interpretation Comments GLUCOSE (test code = 2217) 330 MG/DL BUN (test code = 2208) 11 MG/DL CREATININE (test code = 2214) 0.84 MG/DL eGFR AMER. (test code 87 ML/MIN/1.73 = 45213) eGFR NON- AMER. (test 75 ML/MIN/1.73 code = 26404) CALC BUN/CREAT (test code = 13 RATIO 2234) SODIUM (test code = 2231) [...] = 2219) 29 U/L MICROALBUMIN/CREATININE, RANDOM AND [id number] 00:00:00 Test Item Value Reference Range Interpretation Comments CREATININE, URINE, CONC. (test 131.3 MG/DL code = 2072) ALBUMIN, URINE, RANDOM (test code 0.4 MG/DL = 89028) CALC ALBUMIN/CREAT, RND (test 3 MG/G code = 03101) MICROALBUMIN/CREATININE, RANDOM AND [id number] 00:00:00 Test Item Value Reference Range Interpretation Comments CREATININE, URINE, CONC. (test 131.3 MG/DL code = 2072) ALBUMIN, URINE, RANDOM (test code 0.4 MG/DL = 30946) CALC ALBUMIN/CREAT, RND (test 3 MG/G code = 01967) HEMOGLOBIN [id number] 00:00:00 Test Item Value Reference Range Interpretation Comments HEMOGLOBIN A1c (test code = 55000) 8.6 % HEMOGLOBIN [id number] 00:00:00 Test Item Value Reference Range Interpretation Comments HEMOGLOBIN A1c (test code = 00107) 8.6 % LIPID [id number] 00:00:00 Test Item Value Reference Range Interpretation Comments CHOLESTEROL (test code = 2210) 104 MG/DL TRIGLYCERIDES (test code = 2232) 164 MG/DL HDL CHOLESTEROL (test code = 2220) 39 MG/DL CALC LDL CHOL (test code = 2237) 41 MG/DL RISK RATIO LDL/HDL (test code = 1.05 RATIO 2238) COMPREHENSIVE METABOLIC [id number] 00:00:00 Test Item Value Reference Range Interpretation Comments GLUCOSE (test code = 2217) 330 MG/DL BUN (test code = 2208) 11 MG/DL CREATININE (test code = 2214) 0.84 MG/DL eGFR AMER. (test code 87 ML/MIN/1.73 = 13415) eGFR NON- AMER. (test 75 ML/MIN/1.73 code = 94327) CALC BUN/CREAT (test code = 13 RATIO [...] = 2219) 29 U/L MICROALBUMIN/CREATININE, RANDOM AND [id number] 00:00:00 Test Item Value Reference Range Interpretation Comments CREATININE, URINE, CONC. (test 131.3 MG/DL code = 207) ALBUMIN, URINE, RANDOM (test code 0.4 MG/DL = 97050) CALC ALBUMIN/CREAT, RND (test 3 MG/G code = 75427) HEMOGLOBIN [id number] 00:00:00 Test Item Value Reference Range Interpretation Comments HEMOGLOBIN A1c (test code = 74360) 8.6 % HEMOGLOBIN [id number] 00:00:00 Test Item Value Reference Range Interpretation Comments HEMOGLOBIN A1c (test code = 97491) 8.6 % HEMOGLOBIN [id number] 00:00:00 Test Item Value Reference Range Interpretation Comments HEMOGLOBIN A1c (test code = 81677) 8.6 % LIPID [id number] 00:00:00 Test Item Value Reference Range Interpretation Comments CHOLESTEROL (test code = 2210) 104 MG/DL TRIGLYCERIDES (test code = 2232) 164 MG/DL HDL CHOLESTEROL (test code = 2220) 39 MG/DL CALC LDL CHOL (test code = 2237) 41 MG/DL RISK RATIO LDL/HDL (test code = 1.05 RATIO 2238) LIPID [id number] 00:00:00 Test Item Value Reference Range Interpretation Comments CHOLESTEROL (test code = 2210) 104 MG/DL TRIGLYCERIDES (test code = 2232) 164 MG/DL HDL CHOLESTEROL (test code = 2220) 39 MG/DL CALC LDL CHOL (test code = 2237) 41 MG/DL RISK RATIO LDL/HDL (test code = 1.05 RATIO 2238) COMPREHENSIVE METABOLIC [id number] 00:00:00 Test Item Value Reference Range Interpretation Comments GLUCOSE (test code = 2217) 330 MG/DL BUN (test code = 2208) 11 MG/DL CREATININE (test code = 2214) 0.84 MG/DL eGFR AMER. (test code 87 ML/MIN/1.73 = 19640) eGFR NON- AMER. (test 75 ML/MIN/1.73 code = 81474) CALC BUN/CREAT (test code = 13 RATIO [...] code = 2219) 29 U/L COMPREHENSIVE METABOLIC [id number] 00:00:00 Test Item Value Reference Range Interpretation Comments GLUCOSE (test code = 2217) 330 MG/DL BUN (test code = 2208) 11 MG/DL CREATININE (test code = 2214) 0.84 MG/DL eGFR AMER. (test code 87 ML/MIN/1.73 = 75371) eGFR NON- AMER. (test 75 ML/MIN/1.73 code = 54984) CALC BUN/CREAT (test code = 13 RATIO [...] ALKALINE PHOSPHATASE (test 106 U/L code = 2203) AST (test code = 2218) 44 U/L ALT (test code = 2219) 29 U/L MICROALBUMIN/CREATININE, RANDOM AND [id number] 00:00:00 Test Item Value Reference Range Interpretation Comments CREATININE, URINE, CONC. (test 131.3 MG/DL code = 2072) ALBUMIN, URINE, RANDOM (test code 0.4 MG/DL = 98751) CALC ALBUMIN/CREAT, RND (test 3 MG/G code = 96865) MICROALBUMIN/CREATININE, RANDOM AND [id number] 00:00:00 Test Item Value Reference Range Interpretation Comments CREATININE, URINE, CONC. (test 131.3 MG/DL code = 2072) ALBUMIN, URINE, RANDOM (test code 0.4 MG/DL = 62054) CALC ALBUMIN/CREAT, RND (test 3 MG/G code = 35312)
[2022-05-16 20:05] LABS: Urine Blood Trace-intact (Negative); Urine Glucose Negative (Negative); Urine Protein Trace (Negative); Urine pH 5.5 (5.0-7.0)
[2022-05-16 20:12] LABS: Urine Bacteria <20 /HPF (<20); Urine WBC Clump Occasional /HPF (None Seen)
[2022-05-16] MEDS ORDERED: ONDANSETRON 4 MG/2 ML VIAL ONE (20:44)
[2022-05-16] MEDS ORDERED: FENTANYL CITR 100 MCG/2 ML ONE (20:44)
[2022-05-16] MEDS ORDERED: NA CHLORIDE 0.9% 500 ML ONE (20:45)
[2022-05-16 21:09] LABS: Absolute Lymphocytes (CBC) 0.8 K/uL (0.7-4.9); Hematocrit 29.5 % (36.0-45.0); Lymphocytes % 25.4 % (15.3-44.8); MCV 85.6 fL (80-100); MPV 7.2 fL (7.6-11.3); RBC Red Blood Cell Count 3.45 M/uL (3.86-4.86)
[2022-05-16 21:26] LABS: Albumin 3.5 g/dL (3.4-5.0); Bilirubin Total 0.3 mg/dL (0.2-1.0); Potassium 4.8 mmol/L (3.5-5.1); Protein, Total 8.2 g/dL (6.4-8.2)
--- NOTE | 2022-05-16 21:51 | RAD REPORT ---
EXAM DESCRIPTION: CTAbdomen Pelvis W Contrast - 05/16/2022 9:33 pm CLINICAL HISTORY: lower abdomen pain COMPARISON: Abdomen Pelvis W Contrast dated 03/02/2022; Abdomen Pelvis W Contrast dated ; Abdomen Pelvis W Contrast dated 03/24/2021 TECHNIQUE: CT of the abdomen and pelvis was performed with IV contrast. All CT scans are performed using dose optimization technique as appropriate and may include automated exposure control or mA/KV adjustment according to patient size. FINDINGS: Lower chest: No acute abnormality. Liver: Cirrhotic liver morphology. Biliary: Cholecystectomy Stomach: No significant focal abnormality. Duodenum: No significant focal abnormality. Pancreas: No significant abnormality. Spleen: Mild splenomegaly . Adrenal: No suspicious lesions. Kidney/ureter: No hydronephrosis. No renal calculi. Retroperitoneum: No retroperitoneal adenopathy. Vascular: No aneurysm. Bowel: No significant focal abnormality. Diverticulosis without diverticulitis. Peritoneum: No ascites or free air. Bladder: Grossly unremarkable. Reproductive: No adnexal masses. Hysterectomy Bones: No acute fracture. Remote L1 compression fracture . Other: n/a IMPRESSION: No acute intra-abdominal or pelvic finding. Cirrhosis.
--- NOTE | 2022-05-16 22:05 | ER ---
Nurse's Notes [facility] Name: Sita Delgado Age: 62 yrs Sex: Female : 1960 Arrival Date: 05/16/2022 Time: 19:17 Bed 10 Private MD: Diagnosis: UTI/ Urinary tract infection, site not specified Presentation: 05/16 19:46 Chief complaint: Patient states: I have been peeing a lot and it wilson and hurts when i kr3 pee. Coronavirus screen: Vaccine status: Patient reports receiving the 2nd dose of the covid vaccine. Ebola Screen: Patient denies travel to an Ebola-affected area in the 21 days before illness onset. Initial Sepsis Screen: Does the patient meet any 2 criteria? No. Patient's initial sepsis screen is negative. Does the patient have a suspected source of infection? No. Patient's initial sepsis screen is negative. Risk Assessment: Do you want to hurt yourself or someone else? Patient reports no desire to harm self or others. Onset of symptoms was May 06, 2022. 19:46 Method Of Arrival: Ambulatory kr3 19:46 Acuity: KATARINA 4 kr3 Triage Assessment: 19:51 General: Appears in no apparent distress. uncomfortable, Behavior is calm, cooperative, kr3 appropriate for age. Pain: Complains of pain in groin. Pain: Complains of pain in back. Historical: - Allergies: 19:49 Darvocet-N 100; kr3 19:49 Ketorolac; kr3 19:49 Nubain; kr3 19:49 PENICILLINS; kr3 - PMHx: 19:49 diabetes mellitus; Hypertensive disorder; cirrhosis of liver; chronic back pain; kr3 22:46 Hypercholesterolemia; Thyroid problem; kl - PSHx: 19:49 Appendectomy; vic knee reconstructive sx; carpal tunnel repair; Cholecystectomy; kr3 hysterectomy; - Immunization history:: Adult Immunizations up to date. - Social history:: Smoking status: Patient/guardian denies using tobacco, the patient reports quitting approximately 15 years ago. Screenin:46 [facility] ED Fall Risk Assessment (Adult) History of falling in the last 3 months, kl including since admission No falls in past 3 months (0 pts). Abuse screen: Denies threats or abuse. Nutritional screening: No deficits noted. Tuberculosis screening: No symptoms or risk factors identified. Assessment: 20:59 Reassessment: Patient appears in no apparent distress at this time. Patient and/or kl family updated on plan of care and expected duration. Pain level reassessed. Patient is alert, oriented x 3, equal unlabored respirations, skin warm/dry/pink. Patient states feeling better. Patient states symptoms have improved. Vital Signs: 19:46 BP 131 / 71; Pulse 93; Resp 18; Temp 98.8(O); Pulse Ox 95% ; Weight 91.63 kg; Height 5 kr3 ft. 2 in. (157.48 cm); Pain 10/10; 22:45 BP 128 / 77; Pulse 85; Resp 17; Pulse Ox 98% on R/A; Pain 0/10; kl 19:46 Body Mass Index 36.95 (91.63 kg, 157.48 cm) kr3 ED Course: 19:17 Patient arrived in ED. mr 19:28 Williams Wang PA is PHCP. cp 19:28 Everette Stiles MD is Attending Physician. cp 19:49 Triage completed. kr3 19:51 Arm band placed on right wrist. Patient placed in an exam room, on a stretcher. kr3 20:06 Urine Microscopic Only Sent. kr3 20:40 Inserted saline lock: 20 gauge in right antecubital area, using aseptic technique. kl Blood collected. 20:54 CBC with Diff Sent. kl 20:54 Lipase Sent. kl 20:59 No provider procedures requiring assistance completed. kl 21:35 CT Abd/Pelvis - IV Contrast Only In Process Unspecified. EDMS 22:46 IV discontinued, intact, bleeding controlled, No redness/swelling at site. Pressure kl dressing applied. 22:47 Patient has correct armband on for positive identification. Administered Medications: 20:19 CANCELLED (Physician Discretion): Rocephin (cefTRIAXone) 1 grams IV at calculated rate cp once; Given slow IV push per pharmacy instructions 20:45 Drug: Zofran (Ondansetron) 4 mg Route: IVP; Site: right antecubital; kl 20:50 Drug: fentaNYL (PF) 25 mcg Route: IVP; Site: right antecubital; kl 22:45 Follow up: Response: No adverse reaction; Marked relief of symptoms 20:53 Drug: NS 0.9% 500 ml Route: IV; Rate: bolus; Site: right antecubital; 22:00 Follow up: IV Status: Completed infusion; IV Intake: 500ml 22:01 Drug: Rocephin (cefTRIAXone) 1 grams Route: IV; Rate: calculated rate; Site: right antecubital; :44 Follow up: Response: No adverse reaction Medication: 22:47 VIS not applicable for this client. Intake: 22:00 IV: 500ml; Total: 500ml. Outcome: 22:04 Discharge ordered by . cp 22:45 Discharged to home ambulatory. 22:45 Condition: good 22:45 Discharge instructions given to patient, Instructed on discharge instructions, follow up and referral plans. medication usage, Demonstrated understanding of instructions, follow-up care, medications, Prescriptions given X 2. 22:47 Patient left the ED. Signatures: Dispatcher [employer] EDLisa Hernandez RN RN kl Rivera, Mary mr Williams Wang, GILBERT PA Riana Hoffmann RN RN kr3
--- NOTE | 2022-05-16 22:05 | EDPHYS ---
Physician Documentation [facility] Name: Sita Delgado Age: 62 yrs Sex: Female : 1960 Arrival Date: 05/16/2022 Time: 19:17 Bed 10 Private MD: ED Physician Everette Stiles HPI: 05/16 20:00 This 62 yrs old Female presents to ER via Ambulatory with complaints of cp Urinary Problem. 20:00 The patient presents with urinary symptoms, dysuria, hematuria. Onset: The cp symptoms/episode began/occurred 10 day(s) ago. Associated signs and symptoms: Pertinent positives: low back pain, Pertinent negatives: constipation, diarrhea, fever, vaginal bleeding, vomiting. Severity of symptoms: in the emergency department the symptoms are unchanged, despite home interventions, has been taking OTC cranberry. Historical: - Allergies: 19:49 Darvocet-N 100; kr3 19:49 Ketorolac; kr3 19:49 Nubain; kr3 19:49 PENICILLINS; kr3 - PMHx: 19:49 diabetes mellitus; Hypertensive disorder; cirrhosis of liver; chronic back pain; kr3 22:46 Hypercholesterolemia; Thyroid problem; kl - PSHx: 19:49 Appendectomy; vic knee reconstructive sx; carpal tunnel repair; Cholecystectomy; kr3 hysterectomy; - Immunization history:: Adult Immunizations up to date. - Social history:: Smoking status: Patient/guardian denies using tobacco, the patient reports quitting approximately 15 years ago. ROS: 20:05 Constitutional: Negative for body aches, fever, poor PO intake. cp 20:05 Eyes: Negative for injury, pain, redness, and discharge. cp 20:05 ENT: Negative for drainage from ear(s), ear pain, sore throat, difficulty swallowing, difficulty handling secretions. 20:05 Cardiovascular: Negative for chest pain, palpitations. 20:05 Respiratory: Negative for cough, shortness of breath, wheezing. 20:05 Abdomen/GI: Positive for abdominal pain, of the suprapubic area, Negative for vomiting, diarrhea, constipation. 20:05 Back: Positive for pain at rest, of the low back area, Negative for injury or acute deformity, decreased range of motion. 20:05 Neuro: Negative for altered mental status, dizziness, headache, weakness. 20:05 All other systems are negative. Exam: 20:10 Constitutional: The patient appears in no acute distress, alert, awake, non-toxic, well cp developed, well nourished, overweight 20:10 Head/Face: Normocephalic, atraumatic. cp 20:10 Eyes: Periorbital structures: appear normal, Conjunctiva: normal, no exudate, no injection, Sclera: no appreciated abnormality, Lids and lashes: appear normal, bilaterally. 20:10 ENT: External ear(s): are unremarkable, Nose: is normal, Mouth: Lips: moist, Oral mucosa: moist, Posterior pharynx: is normal, airway is patent, no erythema, no exudate. 20:10 Neck: ROM/movement: is normal, is supple, without pain, no range of motions limitations, no nuchal rigidity. 20:10 Chest/axilla: Inspection: normal. 20:10 Cardiovascular: Rate: normal, Rhythm: regular. 20:10 Respiratory: the patient does not display signs of respiratory distress, Respirations: normal, no use of accessory muscles, no retractions, labored breathing, is not present, Breath sounds: are clear throughout, no decreased breath sounds, no stridor, no wheezing. 20:10 Abdomen/GI: Inspection: abdomen appears normal, Bowel sounds: active, all quadrants, Palpation: soft, in all quadrants, moderate abdominal tenderness, in the suprapubic area, rebound tenderness, is not appreciated, involuntary guarding, is not appreciated. 20:10 Back: pain, that is mild, of the low back area, ROM is normal. 20:10 Neuro: Orientation: to person, place \T\ time. Mentation: is normal, Motor: moves all fours, strength is normal, Sensation: is normal. Vital Signs: 19:46 BP 131 / 71; Pulse 93; Resp 18; Temp 98.8(O); Pulse Ox 95% ; Weight 91.63 kg; Height 5 kr3 ft. 2 in. (157.48 cm); Pain 10/10; 22:45 BP 128 / 77; Pulse 85; Resp 17; Pulse Ox 98% on R/A; Pain 0/10; kl 19:46 Body Mass Index 36.95 (91.63 kg, 157.48 cm) kr3 MDM: 19:52 Patient medically screened. cp 21:00 Differential diagnosis: kidney stone, urinary tract infection, pyelonephritis, sepsis. cp 22:03 Data reviewed: vital signs, nurses notes, lab test result(s), radiologic studies, CT cp scan. 22:03 Consideration of Admission/Observation Escalation of care including cp admission/observation considered. I considered the following discharge prescriptions or medication management in the emergency department Medications were administered in the Emergency Department. See MAR. Test considered but Not performed: Labs: blood cultures, lactate. Care significantly affected by the following chronic conditions: Diabetes, Hypertension, Liver Disease, chronic back pain. Counseling: I had a detailed discussion with the patient and/or guardian regarding: the historical points, exam findings, and any diagnostic results supporting the discharge/admit diagnosis, lab results, radiology results, the need for outpatient follow up, a family practitioner, to return to the emergency department if symptoms worsen or persist or if there are any questions or concerns that arise at home. Response to treatment: the patient's symptoms have markedly improved after treatment, and as a result, I will discharge patient. 05/16 19:56 Order name: Urine Microscopic Only; Complete Time: 21:47 cp 05/16 20:06 Order name: Urine Dipstick-Ancillary; Complete Time: 20:17 EDMS 05/16 20:17 Order name: CBC with Diff; Complete Time: 21:47 cp 05/16 20:17 Order name: CMP; Complete Time: 21:47 cp 05/16 20:17 Order name: Lipase; Complete Time: 21:47 cp 05/16 20:24 Order name: Urine Culture EDWV 05/16 19:56 Order name: Urine Dipstick-Ancillary (obtain specimen); Complete Time: 20:06 cp 05/16 20:17 Order name: IV Saline Lock; Complete Time: 20:53 cp 05/16 20:18 Order name: CT Abd/Pelvis - IV Contrast Only; Complete Time: 21:52 cp 05/16 21:52 Interpretation: Report reviewed. cp 05/16 20:17 Order name: Labs collected and sent; Complete Time: 20:54 cp Administered Medications: 20:19 CANCELLED (Physician Discretion): Rocephin (cefTRIAXone) 1 grams IV at calculated rate cp once; Given slow IV push per pharmacy instructions 20:45 Drug: Zofran (Ondansetron) 4 mg Route: IVP; Site: right antecubital; kl 20:50 Drug: fentaNYL (PF) 25 mcg Route: IVP; Site: right antecubital; kl 22:45 Follow up: Response: No adverse reaction; Marked relief of symptoms kl 20:53 Drug: NS 0.9% 500 ml Route: IV; Rate: bolus; Site: right antecubital; kl 22:00 Follow up: IV Status: Completed infusion; IV Intake: 500ml kl 22:01 Drug: Rocephin (cefTRIAXone) 1 grams Route: IV; Rate: calculated rate; Site: right kl antecubital; 22:44 Follow up: Response: No adverse reaction kl Disposition Summary: 05/16/22 22:04 Discharge Ordered Location: Home cp Problem: new cp Symptoms: have improved cp Condition: Stable cp Diagnosis - UTI/ Urinary tract infection, site not specified cp Followup: cp - With: Private Physician - When: 2 - 3 days - Reason: Recheck today's complaints Discharge Instructions: - Discharge Summary Sheet cp - Urinary Tract Infection, Adult cp Forms: - Medication Reconciliation Form cp - Thank You Letter cp - Antibiotic Education cp - Prescription Opioid Use cp Prescriptions: - Pyridium 200 mg Oral Tablet - take 1 tablet by ORAL route every 8 hours for 2 days; 6 tablet; Refills: 0, cp Product Selection Permitted - cefpodoxime 200 mg Oral Tablet - take 1 tablet by ORAL route every 12 hours for 7 days with food; 14 tablet; cp Refills: 0, Product Selection Permitted - Zofran 4 mg Oral Tablet - take 1 tablet by ORAL route every 12 hours As needed; 20 tablet; Refills: 0, cp Product Selection Permitted Addendum: 05/19/2022 09:13 Co-signature as Attending Physician, Everette Stiles MD I reviewed the patient's care r n provided by the Advanced Practice Provider and agree with the diagnosis and treatment plan. Signatures: Dispatcher [employer] Lisa Mckeon RN RN kl Nieto, Roman, MD MD rn Page, Corey, PA PA Riana Hoffmann RN RN kr3 Corrections: (The following items were deleted from the chart) 05/16 20:19 20:18 Rocephin (cefTRIAXone) 1 grams IV at calculated rate once; Given slow IV push per cp pharmacy instructions ordered. cp
[2022-05-16 23:34] VITALS: TEMP 98.8
[2022-05-16 23:35] VITALS: BP 128/77; O2SAT 98
[2022-05-17] MEDS ORDERED: IBUPROFEN 200 MG TAB PO ONE (00:10)
[2022-05-17] MEDS ORDERED: ACETAMINOPHEN 500 MG TAB ONE (00:11)
== END 2022-05-16 22:47 | disposition home or self-care (01) ==
LOC: ER 19:14
DX: N39.0 Urinary tract infection, site not specified (principal); I10 Essential (primary) hypertension; Z88.0 Allergy status to penicillin; Z88.5 Allergy status to narcotic agent; Z88.8 Allergy status to other drugs, medicaments and biological substances
CPT/HCPCS: 96361; 87088; 85025; 87086; 36415; 82565; 87077; 87186; 83690; 80053; 74177; 96375; 96374; 99284; Q9967; J3010; J7040; J2405; 81003; 81015